=== PATIENT | female | born 1945 | race Caucasian/White ===

== ENCOUNTER 2016-09-22 12:13 | Emergency (ER) | payer MEDICARE, OTHER ==
[2016-09-22 13:15] LABS: Hematocrit 25 % (35-47); Hemoglobin 7.8 g/dl (12.0-16.0); Mean Corpuscular HGB Conc 31 g/dl (31-36); Mean Corpuscular Hemoglobin 30 pg (27-31); Mean Corpuscular Volume 95 fL (80-97); Mean Platelet Volume 9 um3 (7.4-10.4); Red Blood Count 2.65 10^6/ul (4.0-5.4); Red Cell Distribution Width 16 % (10.5-15); White Blood Count 12.7 10^3/ul (3.5-10.8)
--- NOTE | 2016-09-22 13:20 | RAD ---
INDICATION: Shortness of breath. COMPARISON: Comparison is made with a prior study from August 07, 2016. TECHNIQUE: A portable view of the chest was obtained. FINDINGS: The patient is status poststernotomy. There is interval increase in size of the cardiac silhouette. The lungs are underinflated. There is mild prominence of the interstitial markings. There is a focal infiltrate at the left lung base and a small left pleural effusion which are new. There are multiple old right posterior lateral rib fractures. IMPRESSION: 1. INTERVAL INCREASE IN SIZE OF THE CARDIAC SILHOUETTE. 2. LEFT LOWER LOBE INFILTRATE AND SMALL LEFT PLEURAL EFFUSION.
[2016-09-22 13:42] LABS: Albumin 3.4 g/dL (3.2-5.2); BUN/Creatinine Ratio 26.9 (8-20); Calcium 8.5 mg/dL (8.6-10.3); EGFR Non-African American 35.8 (>60); Globulin 2.5 g/dL (2-4); Potassium 5.6 mmol/L (3.5-5.0); Total Bilirubin 0.6 mg/dL (0.2-1.0); Total Protein 5.9 g/dL (6.4-8.9)
[2016-09-22 13:49] LABS: Troponin I 0.84 ng/mL (<0.04)
[2016-09-22] MEDS ORDERED: Perflutren Prot Type A Micr (NF) 3 ML SDV IV ONE (13:54)
--- NOTE | 2016-09-22 14:55 | ECHO ---
Patient: MARICARMEN VARGAS [facility] Rec#: [id number] : 1945 Date: 09/22/2016 Age: 70y Height: 167.64 cm / 66.0 in Weight: 82.55 kg / 181.9 lbs Sex: F BSA: 1.92 Room#: 10 Admit Date#: 09/22/2016 Type: Inpatient Referring: Lorenzo Marin MD Reading: Buster Moser MD Kier Pleater: Wendie Dominguez,AVA,RDMS CC: Boo Batres MD Transthoracic Echocardiogram Indication: Shortness of Breath BP: 121/59 HR: 111 Rhythm: A-Fib Indications Shortness of Breath Findings History: S/P MV replacement and CABG, HTN, HLD, smoker, MV disorder. Technical Comments: The study is technically difficult. The study is technically limited due to poor acoustic windows. Left Ventricle: The left ventricular chamber size is normal. Moderate concentric left ventricular hypertrophy is observed. The left ventricle appears hyperdynamic. The estimated ejection fraction is greater than 65%. The assessment of diastolic function is non-diagnostic. Left Atrium: The left atrium is mildly dilated. Right Ventricle: The right ventricular chamber size and systolic function are within normal limits. Right Atrium: The right atrial cavity size is normal. Aortic Valve: The aortic valve is trileaflet. The aortic valve leaflets are mildly thickened. There is mild aortic regurgitation. There is no evidence of aortic stenosis. Mitral Valve: There is no evidence of mitral regurgitation. The bioprosthetic mitral valve appears to be functioning normally. Tricuspid Valve: The tricuspid valve leaflets are not thickened. There is trace tricuspid regurgitation. Unable to estimate the right ventricular systolic pressure. Pulmonic Valve: The pulmonic valve structure is not well visualized. Pericardium: There is no pericardial effusion. Aorta: The aortic root appears normal. There is no dilatation of the aortic arch. Pulmonary Artery: The main pulmonary artery is not well visualized. Venous: The inferior vena cava is not visualized. Contrast: Optison was used to optimize study. A total of 2.5 ml were used. Conclusions Moderate concentric left ventricular hypertrophy is observed. The left ventricle appears hyperdynamic. The estimated ejection fraction is greater than 65%. The assessment of diastolic function is non-diagnostic. The left atrium is mildly dilated. The aortic valve leaflets are mildly thickened. There is mild aortic regurgitation. Increased velocity in LV outflow tract could be due to hyperdynamic LV function or outflow obstruction The bioprosthetic mitral valve appears to be functioning normally. There is no evidence of mitral regurgitation. There is trace tricuspid regurgitation. Unable to estimate the right ventricular systolic pressure. There is no pericardial effusion Compared to study of 08/08/16, the LV function is the same. The mitral valve has been replaced Measurements Name Value Normal Range RVIDd (AP) 2D 2.3 cm (0.9 - 2.6) RAd ISD 4CH 4.6 cm (3.4 - 4.9) RA (A4C)W 3.5 cm (2.9 - 4.6) IVSd (2D) 1.4 cm (0.6 - 1) LVPWd (2D) 1.5 cm (0.6 - 1) LVIDd (2D) 4.3 cm (3.6 - 5.4) LVIDs (2D) 3.4 cm - LV FS (2D) 21 % (25 - 45) Aortic Annulus 1.7 cm (1.4 - 2.6) Ao root diameter (2D) 2.5 cm (2.1 - 3.5) Ascending Ao 3.1 cm (2.1 - 3.4) Aortic arch 2.2 cm (1.8 - 3.4) LA dimension (AP) 2D 5.6 cm (2.3 - 3.8) Name Value Normal Range LA ESV SP 4CH (A/L) 56.63 ml - LA ESV SP 2CH (A/L) 76.11 ml - LA ESV BP (A/L) 67.66 ml - LA ESV BP (A/L) index 35 ml/m2 - LA ESV SP 4CH (MOD) 53.54 ml - LA ESV SP 2CH (MOD) 70.68 ml - Name Value Normal Range MV E-wave Vmax 1.4 m/sec - MV deceleration time 246 msec - LV lateral e' Vmax 0.06 m/sec - LV E:e' lateral ratio 25 ratio - Name Value Normal Range AV Vmax 2 m/sec - AV peak gradient 16 mmHg - LVOT diameter 1.9 cm - Name Value Normal Range MV Vmax 1.7 m/sec - MV VTI 33.4 cm - MV peak gradient 11.2 mmHg - MV mean gradient 4.6 mmHg - MV PHT 71 msec - MVA (PHT) 3.1 cm2 - Name Value Normal Range RAP 8 mmHg - Name Value Normal Range PV Vmax 0.8 m/sec - PV peak gradient 2.9 mmHg -
[2016-09-22] MEDS ORDERED: oxyCODONE/Acetamin 5/325 MG* TAB PO ONE ×2 (16:01→16:24)
--- NOTE | 2016-09-22 16:35 | ED ---
Russel Wilkins Adam, scribed for Lorenzo Marin MD on 09/22/16 at 1230 . Shortness of Breath - HPI Summary HPI Summary: Pt is a 70 year old female presenting with SOB. She states that she has been having difficulty breathing since her valve replacement operation 6 days ago. A pig valve was used for the replacement. The symptoms that preceded the operation were primarily dizziness and feelings of near-syncope. The pt also had catheterization and bypass x2; she has donor sites in her lower extremities. Pt was discharged home yesterday and has been having difficulty breathing. She states that she did not sleep well last night because she was unable to lie flat. She denies any CP. PMHx of HLD. Pt is on warfarin. She states that she quit smoking 1 week ago. No hx of COPD, not on home o2. - History of Current Complaint Time Seen by Provider: 09/22/16 12:21 Hx Obtained From: Patient Onset/Duration: Gradual Onset, Lasting Days, Still Present Timing: Constant Current Severity: Moderate Dyspnea At: Rest Alleviating Factors: Oxygen - Allergy/Home Medications Allergies/Adverse Reactions: Allergies Allergy/AdvReac Type Severity Reaction Status Date / Time No Known Allergies Allergy Verified 08/15/16 09:25 PMH/Surg Hx/FS Hx/Imm Hx Endocrine/Hematology History: Reports: Hx Anemia Denies: Hx Diabetes Cardiovascular History: Reports: Hx Hypercholesterolemia, Hx Hypertension, Hx Syncope, Other Cardiovascular Problems/Disorders - BORN WITH HEART MURMUR, ON MEDS Denies: Hx Pacemaker/ICD Respiratory History: Reports: Hx Seasonal Allergies Denies: Hx Asthma, Hx Chronic Obstructive Pulmonary Disease (COPD), Other Respiratory Problems/Disorders History: Denies: Hx Renal Disease Musculoskeletal History: Reports: Hx Fibromyalgia, Hx Osteoporosis - L HIP;SPINE Sensory History: Reports: Hx Contacts or Glasses - GLASSES, Other Sensory Impairments - fibromyalgia Denies: Hx Hearing Aid Opthamlomology History: Reports: Hx Contacts or Glasses - GLASSES, Other Sensory Impairments - fibromyalgia Neurological History: Reports: Hx Headaches Psychiatric History: Reports: Hx Anxiety - NO MEDICATION FOR AT THIS TIME- STATES HAS BEEN NERVOUS LATELY, Hx Depression - NO MEDICATION FOR AT THIS TIME Denies: Hx Panic Disorder - Cancer History Hx Chemotherapy: No Hx Radiation Therapy: No - Surgical History Surgery Procedure, Year, and Place: right wrist-plate; gastric stapling; tubal ligation,. hysterectomy-CMC; appendectomy;carpal tunnel right and left,LAP RISA. RIGHT THUMB TENDON REPAIR, - Immunization History Date of Tetanus Vaccine: Yes Date of Influenza Vaccine: Fall 2012 - Family History Known Family History: Positive: Hypertension - Social History Occupation: Disabled Lives: With Family - Alcohol Use: None Hx Substance Use: Yes Substance Use Type: Reports: Prescribed Substance Use Comment - Amount & Last Used: hydrocodone Hx Tobacco Use: Yes Smoking Status (MU): Former Smoker - Quit in August, Type: Cigarettes Amount Used/How Often: 1/2 PPD Have You Smoked in the Last Year: Yes Review of Systems Negative: Chest Pain Positive: Shortness Of Breath All Other Systems Reviewed And Are Negative: Yes Physical Exam - Summary Physical Exam Summary: The patient is in moderate respiratory distress. The skin is pale. Not diaphoretic. Decreased skin turgor. Ecchymosis in both lower extremities. HEENT: The head is normocephalic and atraumatic. The pupils are equal and reactive. The conjunctivae are clear and without drainage. Nares are patent and without drainage. Mouth reveals dry mucous membranes and the throat is without erythema and exudate. The external ears are intact. Neck is supple with full range of motion and non-tender. There are no carotid bruits. There is no neck vein distension. No tracheal deviation. Respiratory: Moderate respiratory distress. Hypoxic. Decreased breath sound on the left. Cardiovascular: Heart irregular but controlled. Abdomen: The abdomen is soft and non-tender. There are normal bowel sounds heard in all four quadrants and there is no organomegaly palpated. Musculoskeletal: Edema and tenderness in RLE where there is a donor site. Neurological: Patient is alert and oriented to person, place and time. The patient has symmetrical motor strength in all four extremities. Cranial nerves are grossly intact. Deep tendon reflexes are symmetrical and equal in all four extremities. Psychiatric: The patient has an appropriate affect and does not exhibit any anxiety or depression. Triage Information Reviewed: Yes Vital Signs On Initial Exam: Initial Vitals Pulse Pulse Ox 103 86 09/22/16 12:24 09/22/16 12:24 Vital Signs Reviewed: Yes Diagnostics - Vital Signs Vital Signs Temp Pulse Resp BP Pulse Ox 09/22/16 16:00 89 26 99/63 100 09/22/16 15:30 78 13 138/72 100 09/22/16 15:00 76 13 98/73 100 09/22/16 14:30 65 12 144/86 100 09/22/16 14:01 67 16 104/65 99 09/22/16 14:00 55 22 99 09/22/16 13:54 76 13 100 09/22/16 13:30 39 21 88/56 98 09/22/16 13:00 108 18 130/89 98 09/22/16 12:48 121/59 09/22/16 12:47 105 19 121/59 100 09/22/16 12:37 98.8 F 77 28 160/125 98 09/22/16 12:36 160/125 09/22/16 12:25 150/100 09/22/16 12:24 103 86 - Laboratory Lab Results: Lab Results 09/22/16 09/22/16 09/22/16 Range/Units 13:02 13:02 13:02 WBC 12.7 H (3.5-10.8) 10^3/ul RBC 2.65 L (4.0-5.4) 10^6/ul Hgb 7.8 L (12.0-16.0) g/dl Hct 25 L (35-47) % MCV 95 (80-97) fL MCH 30 (27-31) pg MCHC 31 (31-36) g/dl RDW 16 H (10.5-15) % Plt Count 154 (150-450) 10^3/ul MPV 9 (7.4-10.4) um3 Neut % (Auto) 72.8 (38-83) % Lymph % (Auto) 16.9 L (25-47) % [place] % (Auto) 9.9 H (1-9) % Eos % (Auto) 0.2 (0-6) % Baso % (Auto) 0.2 (0-2) % Absolute Neuts (auto) 9.2 H (1.5-7.7) 10^3/ul Absolute Lymphs (auto) 2.1 (1.0-4.8) 10^3/ul Absolute Monos (auto) 1.3 H (0-0.8) 10^3/ul Absolute Eos (auto) 0 (0-0.6) 10^3/ul Absolute Basos (auto) 0 (0-0.2) 10^3/ul Absolute Nucleated RBC 0.02 10^3/ul Nucleated RBC % 0.1 INR (Anticoag Therapy) (0.89-1.11) APTT (26.0-36.3) seconds Sodium 139 (133-145) mmol/L Potassium 5.6 H (3.5-5.0) mmol/L Chloride 110 (101-111) mmol/L Carbon Dioxide 22 (22-32) mmol/L Anion Gap 7 (2-11) mmol/L BUN 39 H (6-24) mg/dL Creatinine 1.45 H (0.51-0.95) mg/dL Est GFR ( Amer) 46.0 (>60) Est GFR (Non-Af Amer) 35.8 (>60) BUN/Creatinine Ratio 26.9 H (8-20) Glucose 106 H (70-100) mg/dL Lactic Acid 1.8 (0.5-2.0) mmol/L Calcium 8.5 L (8.6-10.3) mg/dL Total Bilirubin 0.60 (0.2-1.0) mg/dL AST 24 (13-39) U/L ALT 22 (7-52) U/L Alkaline Phosphatase 112 H (34-104) U/L Troponin I 0.84 H* (<0.04) ng/mL B-Natriuretic Peptide ( - 100) pg/mL Total Protein 5.9 L (6.4-8.9) g/dL Albumin 3.4 (3.2-5.2) g/dL Globulin 2.5 (2-4) g/dL Albumin/Globulin Ratio 1.4 (1-3) 09/22/16 09/22/16 Range/Units 13:02 13:02 WBC (3.5-10.8) 10^3/ul RBC (4.0-5.4) 10^6/ul Hgb (12.0-16.0) g/dl Hct (35-47) % MCV (80-97) fL MCH (27-31) pg MCHC (31-36) g/dl RDW (10.5-15) % Plt Count (150-450) 10^3/ul MPV (7.4-10.4) um3 Neut % (Auto) (38-83) % Lymph % (Auto) (25-47) % [place] % (Auto) (1-9) % Eos % (Auto) (0-6) % Baso % (Auto) (0-2) % Absolute Neuts (auto) (1.5-7.7) 10^3/ul Absolute Lymphs (auto) (1.0-4.8) 10^3/ul Absolute Monos (auto) (0-0.8) 10^3/ul Absolute Eos (auto) (0-0.6) 10^3/ul Absolute Basos (auto) (0-0.2) 10^3/ul Absolute Nucleated RBC 10^3/ul Nucleated RBC % INR (Anticoag Therapy) 1.78 H (0.89-1.11) APTT 35.0 (26.0-36.3) seconds Sodium (133-145) mmol/L Potassium (3.5-5.0) mmol/L Chloride (101-111) mmol/L Carbon Dioxide (22-32) mmol/L Anion Gap (2-11) mmol/L BUN (6-24) mg/dL Creatinine (0.51-0.95) mg/dL Est GFR ( Amer) (>60) Est GFR (Non-Af Amer) (>60) BUN/Creatinine Ratio (8-20) Glucose (70-100) mg/dL Lactic Acid (0.5-2.0) mmol/L Calcium (8.6-10.3) mg/dL Total Bilirubin (0.2-1.0) mg/dL AST (13-39) U/L ALT (7-52) U/L Alkaline Phosphatase (34-104) U/L Troponin I (<0.04) ng/mL B-Natriuretic Peptide 1128 H ( - 100) pg/mL Total Protein (6.4-8.9) g/dL Albumin (3.2-5.2) g/dL Globulin (2-4) g/dL Albumin/Globulin Ratio (1-3) Result Diagrams: 09/22/16 13:02 09/22/16 13:02 Lab Statement: Any lab studies that have been ordered have been reviewed, and results considered in the medical decision making process. - Radiology CXR Radiology Interpretation Completed By: Radiologist - IMPRESSION: 1. INTERVAL INCREASE IN SIZE OF THE CARDIAC SILHOUETTE. 2. LEFT LOWER LOBE INFILTRATE AND SMALL LEFT PLEURAL EFFUSION. - EKG 12:25 Cardiac Rate: NL - 96 BPM EKG Rhythm: Atrial Flutter - Additional Comments Diagnostic Additional Comments: Troponin I - 0.84 Transthoracic Echocardiogram - There is no pericardial effusion Compared to study of 08/08/16, the LV function is the same. The mitral valve has been replaced Re-Evaluation - Re-Evaluation First Eval Re-Evaluation Time: 16:27 - Discussed the plan to transfer the patient to [facility]. She agrees to be transferred. Course/Dx - Course Course Of Treatment: Patient improved with o2 (sats increased from 86 to 95). Assessment/Plan: 16:15 - Patient is accepted for transfer by Dr. Brewer at [facility]. - Diagnoses Differential Diagnosis/HQI/PQRI: Positive: CHF, NV, Pneumonia, Pulmonary Edema, Other - pericardial effusion Provider Diagnoses: Hypoxia, Left pleural effusion, Anemia, Atrial flutter, No pericardial effusion , Status post mitral valve replacement, Status post coronary artery bypass graft - Physician Notifications Discussed Care of Patient With: [facility] at [facility] at 15:50. They will talk to Dr. Brewer and call back. Reason For Transfer: Specialty or service not available at [facility]. Discharge - Discharge Plan Condition: Stable Disposition: [facility] CARE FAC Referrals: Boo Batres MD [Primary Care Provider] - The documentation as recorded by the Russel serna Adam accurately reflects the service I personally performed and the decisions made by , Lorenzo Marin MD.
[2016-09-22 17:24] VITALS: BP 144/88
== END 2016-09-22 17:24 | disposition short-term general hospital (02) ==
LOC: ED 12:13
DX: R09.02 Hypoxemia (principal); J90 Pleural effusion, not elsewhere classified; D64.9 Anemia, unspecified; I48.92 Unspecified atrial flutter; R42 Dizziness and giddiness; R06.02 Shortness of breath; R55 Syncope and collapse; Z95.2 Presence of prosthetic heart valve; Z95.1 Presence of aortocoronary bypass graft
CPT/HCPCS: 36415; 71010; 80053; 83605; 83880; 84484; 85025; 85610; 85730; 93005; 93306; 99284; A9270-GY; C8929; Q9956

== ENCOUNTER 2017-01-23 09:04 | Emergency (ER) | payer MEDICARE, OTHER ==
[2017-01-23 09:51] VITALS: BP 174/66
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
== END 2017-01-23 11:25 | disposition home or self-care (01) ==
LOC: ED 09:04
DX: S23.3XXA Sprain of ligaments of thoracic spine, initial encounter (principal); V49.9XXA Car occupant (driver) (passenger) injured in unspecified traffic accident, initial encounter; Y93.89 Activity, other specified; Y92.89 Other specified places as the place of occurrence of the external cause; Y99.8 Other external cause status; F17.210 Nicotine dependence, cigarettes, uncomplicated
CPT/HCPCS: 72128; 99282

== ENCOUNTER 2017-08-15 11:07 | Emergency (ER) | payer MEDICARE, OTHER ==
[2017-08-15] MEDS ORDERED: HYDROcodone/ACETAMIN 5-325 MG* 1 TAB PO ONE (12:20)
[2017-08-15] MEDS ORDERED: Ibuprofen TAB* 600 MG PO ONE (13:45)
[2017-08-15 14:22] VITALS: BP 165/71
--- NOTE | 2017-08-15 14:26 | ED ---
Complex/Multi-Sys Presentation - HPI Summary HPI Summary: 71 female presents to ED with complaints of right rib/back pain that began yesterday, 08/14/17, after [place] due to her daughter's dog making her trip over. Admits to bruising. States she had ribs broken a few years ago on the same side and it feels similar. Pain with deep breaths. Has taken pain medication with little relief. Already prescribed pain medication. States coughing and laughing also makes pain worse. No other complaints. No other symptoms. Denies abdominal pain. No hematuria. Did not fall and did not hit head. No SOB or chest pain. Not on blood thinners. - History Of Current Complaint Chief Complaint: EDChestWallPain Time Seen by Provider: 08/15/17 11:46 Hx Obtained From: Patient Onset/Duration: Sudden Onset Timing: Constant Severity Currently: Mild Severity Initially: Moderate Location: Pain At: - right ribs/back where she hit on [place] Character: Sharp Aggravating Factor(s): deep breaths, touch, laughing, coughing Alleviating Factor(s): rest, applying pressure/band Associated Signs And Symptoms: Positive: Recent Trauma - Allergies/Home Medications Allergies/Adverse Reactions: Allergies Allergy/AdvReac Type Severity Reaction Status Date / Time No Known Allergies Allergy Verified 07/13/17 11:41 PMH/Surg Hx/FS Hx/Imm Hx Endocrine/Hematology History: Reports: Hx Anemia Denies: Hx Diabetes Cardiovascular History: Reports: Hx Hypercholesterolemia, Hx Hypertension, Hx Syncope, Other Cardiovascular Problems/Disorders - BORN WITH HEART MURMUR, ON MEDS Denies: Hx Pacemaker/ICD Respiratory History: Reports: Hx Seasonal Allergies Denies: Hx Asthma, Hx Chronic Obstructive Pulmonary Disease (COPD), Other Respiratory Problems/Disorders History: Denies: Hx Renal Disease Musculoskeletal History: Reports: Hx Fibromyalgia, Hx Osteoporosis - L HIP;SPINE Sensory History: Reports: Hx Contacts or Glasses - GLASSES, Other Sensory Impairments - fibromyalgia Denies: Hx Hearing Aid Opthamlomology History: Reports: Hx Contacts or Glasses - GLASSES, Other Sensory Impairments - fibromyalgia Neurological History: Reports: Hx Headaches Psychiatric History: Reports: Hx Anxiety - NO MEDICATION FOR AT THIS TIME- STATES HAS BEEN NERVOUS LATELY, Hx Depression - NO MEDICATION FOR AT THIS TIME Denies: Hx Panic Disorder - Cancer History Hx Chemotherapy: No Hx Radiation Therapy: No - Surgical History Surgery Procedure, Year, and Place: right wrist-plate; gastric stapling; tubal ligation,. hysterectomy-[facility]; appendectomy;carpal tunnel right and left,LAP RISA. RIGHT THUMB TENDON REPAIR, - Immunization History Date of Tetanus Vaccine: Yes Date of Influenza Vaccine: Fall 2012 Immunizations Up to Date: Yes Infectious Disease History: No Infectious Disease History: Denies: Traveled Outside the [place] in Last 30 Days - Family History Known Family History: Positive: Hypertension - Social History Alcohol Use: None Hx Substance Use: Yes Substance Use Type: Reports: None Substance Use Comment - Amount & Last Used: hydrocodone Hx Tobacco Use: Yes Smoking Status (MU): Current Every Day Smoker Type: Cigarettes Amount Used/How Often: 10 cigarettes/day Have You Smoked in the Last Year: Yes Review of Systems Constitutional: Negative Cardiovascular: Other - chest wall/ rib pain Respiratory: Negative Positive: Arthralgia - right rib/back pain Positive: Bruising All Other Systems Reviewed And Are Negative: Yes Physical Exam Triage Information Reviewed: Yes Vital Signs On Initial Exam: Initial Vitals Temp Pulse Resp BP Pulse Ox 97.8 F 64 21 126/80 99 08/15/17 11:14 08/15/17 11:14 08/15/17 11:14 08/15/17 11:14 08/15/17 11:14 Vital Signs Reviewed: Yes Appearance: Positive: Well-Appearing, Well-Nourished, Pain Distress - mild to moderate with palpation Skin: Positive: Warm, Skin Color Reflects Adequate Perfusion, Dry. Negative: Cold, Numb, Cyanosis @, Pale, Erythema @ Head/Face: Positive: Normal Head/Face Inspection Neck: Positive: Supple, Nontender Respiratory/Lung Sounds: Positive: Clear to Auscultation, Breath Sounds Present , Wheezes - diffuse, patient is smoker. Negative: Decreased Breath Sounds, Rales, Rhonchi, Unable to speak in full sentences Cardiovascular: Positive: Normal, RRR, Pulses are Symmetrical in both Upper and Lower Extremities. Negative: Murmur, Rub Abdomen Description: Positive: Nontender, Soft. Negative: No Organomegaly, CVA Tenderness (R), CVA Tenderness (L), Distended, Guarding Bowel Sounds: Positive: Present Musculoskeletal: Positive: Normal, Strength/ROM Intact, Pain @ - with palpation of right ribs at 7-11 posteriorly with ecchymosis noted, Other - no crepitus or step off, no other signs of trauma or deformity. Negative: Limited @, Interruption @, Abnormal @, Edema Left, Edema Right Neurological: Positive: Normal, Sensory/Motor Intact, Alert, Oriented to Person Place, Time, NV Bundle Intact Distally, Normal Gait Diagnostics - Vital Signs Vital Signs Temp Pulse Resp BP Pulse Ox 08/15/17 14:19 99.3 F 61 18 165/71 97 08/15/17 11:14 97.8 F 64 21 126/80 99 - Laboratory Lab Statement: Any lab studies that have been ordered have been reviewed, and results considered in the medical decision making process. - Radiology ribs and chest Xray Interpretation: No Acute Changes - Multiple deformities of the right ribs consistent with multilevel rib fractures. No pneumothorax is noted. No definite recent rib fracture is noted. Radiology Interpretation Completed By: Radiologist Re-Evaluation - Re-Evaluation First Eval Re-Evaluation Time: 14:00 Change: Improved - feeling better after pain meds, would like to d/c home Complex Multi-Symp Course/Dx Course Of Treatment: xray obtained and did not show acute fracture, does show patient's old fractures as she stated. given norco and ibuprofen. had relief. eleanor wrap over rib cage as patient stated it helped. continue at home. rest, ice. follow up. no other concerning symptoms. normal vitals. normal PE otherwise. aware of worsening signs and symptoms to watch out for. - Diagnoses Differential Diagnoses/HQI/PQRI: Other - rib contusion, rib fracture Provider Diagnoses: Contusion of rib on right side Discharge - Discharge Plan Condition: Stable Disposition: HOME Patient Education Materials: Rib Contusion (ED) Referrals: Boo Batres MD [Primary Care Provider] - Additional Instructions: Continue pain medication DIRECTED and supplement with ibuprofen. Ice area. Rest. Any new or worsening symptoms please seek medical attention, such as difficulty breathing. Follow up with PCP to ensure improvement.
--- NOTE | 2017-08-15 15:00 | RAD ---
Indication: Fall, right rib injury. 3 views of the right ribs are reviewed. There are old fractures of the right second third fourth and fifth ribs posteriorly. Additional fracture is noted in the right lateral fifth rib 6 rib seventh rib eighth ribs. These all appear to BE well-corticated with no evidence of recent fracture. Dual energy PA views demonstrates no pneumothorax. Findings are not significantly changed since November 10, 2016. IMPRESSION: Multiple deformities of the right ribs consistent with multilevel rib fractures. No pneumothorax is noted. No definite recent rib fracture is noted.
== END 2017-08-15 14:19 | disposition home or self-care (01) ==
LOC: ED 11:07
DX: S20.211A Contusion of right front wall of thorax, initial encounter (principal); W01.0XXA Fall on same level from slipping, tripping and stumbling without subsequent striking against object, initial encounter; Y92.9 Unspecified place or not applicable; M54.9 Dorsalgia, unspecified; D64.9 Anemia, unspecified; I10 Essential (primary) hypertension; E78.00 Pure hypercholesterolemia, unspecified; Z79.899 Other long term (current) drug therapy; F17.210 Nicotine dependence, cigarettes, uncomplicated
CPT/HCPCS: 99282; A9270-GY

== ENCOUNTER 2017-11-07 16:29 | Inpatient (IN) | payer MEDICARE, OTHER ==
[2017-11-07] MEDS ORDERED: Diltiazem IV* 5 MG/ML 5 ML VIAL (for loading dose/IV Push) (25 MG) IV SLOW PU ONE (17:06)
[2017-11-07] MEDS ORDERED: Diltiazem DRIP* 100 MG/100 ML ADDV.BAG IVPB ONE ×2 (17:06→18:05)
--- OUTSIDE RECORDS SUMMARY | 2017-11-07 17:33 | XMS REPORT ---
:1945 External Reference #:[id number] Author Organization [employer] Address [address] [address] Phone [phone] Care Team Providers Name Role Phone Boo Batres III, MD Primary Care Physician Unavailable Payers Type Date Identification Numbers Payment Provider Subscriber Commercial Effective: Policy Number: Hong Stack/Irina Maricarmen Thomas 2017 [id number] Torri Villarreal PayID: [id number] [address] [address] Attn: [place] [address] Medigap Part B Policy Number: [id number] [facility] Maricarmen Villarreal PayID: [id number] [address] [place] [address] Medigap Part B Expires: 2016 Policy Number: Medicare Maricarmen Thomas [id number] Cherelle PayID: [id number] [address] [place] [address] Workers Onset: Policy Number: State Insurance Maricarmen E Compensation 1985 [id number] Erasmo Villarreal Group Number: [id number] [address] [address] Group Name: 5% [place] [address] [place]ID: [email or web address] Workers Onset: Policy Number: State Insurance Maricarmen E Compensation 1985 [id number] Erasmo Villarreal Group Number: [id number] [address] [address] Group Name: 10% [place] [address] [place]ID: [email or web address] Workers Onset: Policy Number: State Insurance Maricarmen E Compensation 1985 [id number] Erasmo Villarreal Group Number: [id number] [address] [address] Group Name: 25% [place] [address] PayID: [email or web address] Workers Onset: Policy Number: State Insurance Maricarmen Thomas Compensation 1985 [id number] Erasmo Villarreal Group Number: [id number] [address] [address] Group Name: [address] [id number] PayID: [email or web address] Problems Date Description Provider Status Onset: 03/27/2011 Osteoporosis Boo Batres M.D. Active Onset: 03/27/2011 Osteoarthritis Boo Batres M.D. Active Onset: 03/27/2011 Generalized anxiety disorder Boo Batres M.D. Active Onset: 03/27/2011 Palpitations Boo Batres M.D. Active Onset: 11/13/2011 Pure hypercholesterolemia Boo Batres M.D. Active Onset: 11/19/2011 Dizziness and giddiness Angelika Tanner M.D. Onset: 11/19/2011 Vertiginous syndrome Angelika Tanner M.D. Onset: 01/09/2014 Elevated blood-pressure reading Angelika Tanner without diagnosis of hypertension Marissa Onset: 01/09/2014 Orthostatic hypotension Angelika Tanner M.D. Onset: 03/19/2015 Cervical disc disorder Jad Holden M.D. Active Onset: 06/30/2016 Low back pain Jad Holden M.D. Active Onset: 06/30/2016 Cervical spondylosis without Jad Holden M.D. Active myelopathy Onset: 03/23/2017 Fibromyalgia ELIJAH Mora Active Onset: 11/19/2011 Chest pain Rosie Tanner M.D. Resolved: 12/17/2016 Family History Date Family Member(s) Problem(s) Comments General Heart Disease General Diabetes General Cancer : (age 50 Years) First Sister due to Cancer bone cancer Social History Type Date Description Comments Marital Status 2017 Cigarette Use current cigarette smoker ETOH Use Denies alcohol use Smoking Light tobacco smoker (10 or 1 ppd max for over 40 fewer cigarettes/day) years; began age 17 down to 6 cigarettes Daily Caffeine Consumes on average 3 cups of 1/2 decaff regular coffee per day Exercise Type/Frequency Does not exercise General Hx Text , lives at home w/ , who is also disabled, 6 children -- grown, 3 in area, son of brain tumor, no etoh, no drugs. uses wheelchair. Allergies, Adverse Reactions, Alerts Date Description Reaction Status Severity Comments 08/07/2009 NKDA active Medications Medication Date Status Form Strength Qnty SIG Indications Ordering Provider Amitriptyline 10/28/ Active Tablets 50mg 90tabs take 1 Boo Lennon HCL 2018 tablet by Gisel, mouth tid M.D. Iron Supplement 03/03/ Active Tablets 325mg 90tabs one by Caleb Kc mouth Carlene Portillo, daily M.D. Metoprolol 10/21/ Active Tablets 25mg 90tabs /2 by Caleb Tartrate 2017 mouth Carlene Portillo, twice a M.D. day Voltaren 07/16/ Active Gel 1% 300gm apply 2-3 M65.871 Dirk 2017 times Gallo, daily to M.D. affected ankle Cartia XT 04/10/ Active Caps ER 120mg 180cap 1 by mouth I10 Caleb 2015 24HR s in the Jaziel. Mavonda, morning M.D. and 1 at night Omeprazole 06/25/ Active Capsules 20mg 90caps take one Boo Lennon 2015 DR capsule by Gisel, mouth once M.D. daily Prolia 02/27/ Active Solution 60mg/ml 60mg 60 mg sc M81.0 Boo Lennon 2013 q6mon Marissa Batres Z92.29 Fluticasone 11/16/2012 Active Suspension 50mcg/Act 16units use one Munir Propionate spray in [facility], each M.D.,FACP nostril every day Pravastatin 11/13/2011 Active Tablets 40mg 90tabs take 1 Caleb Sodium tablet by Carlene Portillo, mouth at M.D. bedtime Centrum Silver 12/07/2008 Active Tablets 1 po qd Radha López M.D. Fish Oil 12/07/2008 Active Capsules 1000mg 1 po qd Radha López M.D. Lidoderm Active Patches 5% 30units topical 10 Unknown hours prn Aspir-[address] 81mg 3 by mouth Unknown as needed Baclofen Active Tablets 10mg 60tabs 2 tab by Boo Lennon mouth daily Marissa Batres Laxative Active Tablets 25mg 1 tab by Unknown mouth as needed Alprazolam Active Tablets 0.25mg one by Unknown mouth up to three times daily as needed for anxiety Ventolin HFA Active Aerosol 108(90Base 2 puffs by Unknown ) mcg/Act mouth four times a day as needed (not using ) Hydrocodone-Acet Active Tablets 10-325mg 1 po q 4 Unknown aminophen hrs (mmd 5) Calcium Active Tablets 600mg 1 po bid Unknown Advair Diskus Active Aerosol 100-50mcg/ 1 Unknown Dose inhalation twice daily [facility] Slow Release Active Tablets ER 143(45Fe) 1 po qd Unknown Iron mg Vit C Active Chewtabs 125mg take one Unknown capsule bid Zinc Active Capsules 1 by mouth Unknown bid Magnesium Active 2 po qd Unknown Sulfate Eliquis Active Tablets 5mg 1 by mouth Unknown twice a day Demadex 03/03/2017 Hx Tablets 10mg 14tabs 1 tablet Caleb - daily as FLadarius Portillo, 08/22/2017 needed for M.D. weight gain > 3 lbs Iron (Ferrous 10/17/2016 Hx Tablets 256(28Fe) Caleb Gluconate) - mg F. Mauser, 10/17/2016 M.D. Iron 10/17/2016 Hx Tablets 325mg 30tabs 1 tab by Caleb High-Potency - mouth every F. Mauser, 02/09/2017 day M.DLadarius Lisinopril 10/14/2016 Hx Tablets 5mg 90tabs 1 by mouth Caleb - every day F. Lindsey, 11/07/2016 hold as of M.Bib 4.25.17 Augmentin 10/02/2015 Hx Tablets 500-125mg 20tabs 1 by mouth Boo Lennon - twice a day Gisel 03/05/2016 Marissa Metoprolol 07/30/2015 Hx Tablets ER 25mg 45tabs 1/2 tab Caleb Succinate ER - 24HR daily Carlene Portillo, 10/21/2016 (patient M.D. brought in a Metoprolol Tar bottle) Prolia 08/25/2013 Hx Solution 60mg/ml 60mg 60 mg sc Boo E. - q6mon Gisel, 01/09/2014 M.D. Metoprolol 07/29/2013 Hx Tablets 25mg 90tabs 1/2 tab by Caleb Tartrate - mouth twice Carlene Portillo, 07/30/2015 a day M.D. Alendronate 03/04/2013 Hx Tablets 70mg 12tabs take one Boo E. Sodium - tablet by Gisel, 01/26/2015 mouth once M.D. a week Metoprolol 11/19/2011 Hx Tablets 25mg 90tabs Stopped Caleb Tartrate - taking 1 F. Lindsey, 08/01/2013 month ago. M.D. 1/2 po bid Septra DS 08/08/2011 Hx Tablets 800-160mg 20tabs one po bid Boo ELadarius - for ten Gisel, 08/18/2011 days M.D. Metoprolol 06/05/2011 Hx Tablets 25mg 300tabs 2 po qam Caleb Tartrate - and 1 po Jaziel. Lindsey, 11/19/2011 qpm M.D. Furosemide 03/27/2011 Hx Tablets 20mg 1 po qam Boo ELadarius - rey Batres, 05/21/2012 M.D. Chantix 09/27/2010 Hx Tablets 0.5mg X 11 use as Boo E. - & 1 mg directed Gisel, 09/27/2010 X M.D. Chantix 09/27/2010 Hx Tablets 1mg 60tabs 1 po bid Boo Batres, 03/27/2011 M.D. Chantix Starting 08/13/2010 Hx Tablets 0.5mg X 11 1tabs use as Boo E. Yessica Box - & 1 mg directed Gisel, 09/27/2010 X M.DLadarius Lopressor 04/18/2010 Hx Tablets 25mg 270tabs 1 po tid Caleb - F. Milanr, 06/05/2011 M.D. Amoxicillin 03/19/2010 Hx Tablets 500mg 30tabs 1 po tid 4 Boo Lennon - for 10 days 6 Gisel, 04/25/2010 5 M.D. . 9 Lopressor 03/15/2010 Hx Tablets 25mg 180tabs 1 po tid Boo Batres, 04/18/2010 M.D. Lopressor 03/05/2010 Hx Tablets 50mg 1/2 po tid Caleb Carlene Portillo, 03/15/2010 M.D. Lopressor 02/13/2010 Hx Tablets 50mg 90tabs 1/2 po at [facility] Carlene Portillo, 03/05/2010 M.D. Septra DS 02/06/2010 Hx Tablets 800-160mg 6tabs 1 po bid Boo Rodriguez for 3 days Gisel, 02/13/2010 M.D. Chantix 12/19/2009 Hx Tablets 1mg 1monthsu 1 po bid Boo Scales Month - Kristopher Batres 08/13/2010 M.D. [facility] 11/20/2009 Hx eval/Rx for Boo Lennon - chronic Gisel, 12/19/2009 back pain M.D. Chantix Starting 11/20/2009 Hx Tablets 0.5mg X 11 per 3 Boo Summers - & 1 mg directions 3 Gisel, 12/19/2009 X 8 M.D. . 4 Flonase 09/28/2009 Hx Suspension 50mcg/Act 1Bottle 1 4 Boo Lennon - intranasal 7 Gisel, 11/16/2012 puff to 7 M.D. each . nostril 8 daily Clonazepam 08/28/2009 Hx Tablets 0.5mg 60tabs 1 po daily Boo Batres, 11/19/2011 M.D. Clonazepam 08/07/2009 Hx Tablets 1mg 30tabs take one 3 Murli - twice a day 3 Kelly, 08/28/2009 for one 8 M.D. week and . then take 4 one at night only till your next appointment Augmentin 08/07/2009 Hx Tablets 875-125mg 28tabs one twice a 3 Murli - day for 14 3 Kelly, 08/28/2009 days 8 M.D. . 4 Clonazepam 06/19/2009 Hx Tablets 1mg 90tabs 1 po in am, 3 Thananart, - 2 po qpm 0 Radha, 08/28/2009 0 M.D. . 0 2 Naproxen 06/19/2009 Hx Tablets 500mg 180tabs 1 tablet po Boo E. - bid prn Gisel, 01/17/2010 M.D. Zithromax Z-Kristopher 06/06/2009 Hx Tablets 250mg 1Pak take as Thananart, - directed Radha, 06/25/2009 M.D. Amoxicillin 05/28/2009 Hx Tablets 875mg 20tabs 1 tab po 4 Thananart, - bid x 10 d. 6 Radha, 06/25/2009 1 M.D. . 9 Naproxen 04/12/2009 Hx Tablets 500mg 60tabs 1 tab po 7 Thananart, - bid prn 2 Radha, 05/23/2009 9 M.D. . 1 Lyrica 04/12/2009 Hx Capsules 75mg 180caps 1 po bid 7 Thananart, - 2 Radha, 05/23/2009 9 M.D. . 1 Hydrocodone-Acet 03/29/2009 Hx 10-325mg 120units one tablet Thananart , aminophen - po qid prn Radha, 03/29/2009 M.D. Hydrocodone-Acet 03/29/2009 Hx Tablets 10-325mg 120tabs 1 tab po [place] aminophen - q6h (pt Marcos, 10/15/2016 states she M.D. takes routinely every 4 hours) Baclofen 02/07/2009 Hx Tablets 10mg 42tabs 1-2 tab po 7 Thananart, - tid prn 2 Radha, 08/07/2009 9 M.D. . 1 Clonazepam 12/07/2008 Hx Tablets 2mg 60tabs 1 tablet po 3 Bobbi - bid 0 Cotton, 08/07/2009 0 M.D. . 0 2 Percocet 12/07/2008 Hx Tablets 10-325mg 80tabs 1 q4h prn Thananart, - Radha, 03/29/2009 M.D. Tizanidine HCL 12/07/2008 Hx Tablets 4mg 120tabs 1 po q6h Thananart, - Radha, 07/20/2009 M.D. Amitriptyline 12/07/2008 Hx Tablets 50mg 90tabs 1 tab po Boo E. HCL - tid Gisel, 04/25/2010 M.Bib Fosamax 12/07/2008 Hx Tablets 70mg 12tabs one tablet Boo Saji - weekly Gisel, 03/04/2013 M.D. Diazepam 12/07/2008 Hx Tablets 10mg 120tabs 1 po tid Thananart, - Radha, 04/25/2009 M.DLadarius Propranolol HCL 12/07/2008 Hx Tablets 10mg 180tabs 1 po bid Boo ELadarius - Gisel, 02/13/2010 M.D. Furosemide 12/07/2008 Hx Tablets 20mg 60tabs 1 po bid Thananart, - Radha, 02/13/2010 MFam Slow Fe 12/07/2008 Hx Tablets ER 160mg 1 po qd 5x Thananart, - Radha, 11/18/2011 M.Bib Calcium/Vitamin 12/07/2008 Hx Tablets 500mg 60tabs 1 po bid Thananart, D - Radha, 10/13/2016 M.Bib Vit C 12/07/2008 Hx Tablets 250mg 2 po qd Thananart, - Radha, 02/13/2010 M.Bib Lyrica Hx Capsules 75mg 180caps 2 tabs po Thananart, - qhs Radha, 08/07/2009 M.Bib Tizanidine HCL Hx Tablets 4mg 90tabs 1 in am, 1 Unknown - in pm 10/23/2011 Savella Hx Misc 12.5&2 as directed Unknown Titration Pack - 5&50mg samples 03/27/2011 Vit A Hx 8000U 2 tab po Unknown - bid 10/13/2016 Ciprofloxacin Hx Tablets 500mg 14tabs 1 po bid Unknown HCL - 06/04/2010 Amitriptyline Hx 50mg 90units 1 by mouth Boo E. HCL - three times Gisel, 10/28/2017 a day M.D. Flexeril Hx Tablets 10mg 60tabs 1 po every Unknown - 6 hrs 09/25/2015 Stool Softener Hx Capsules 100mg 2 po tid Unknown - 07/21/2016 Tizanidine HCL Hx Tablets 4mg 120tabs 1 po tid Unknown - 01/28/2012 Proair HFA Hx Aerosol 108(90Base 1units 2 puffs by Unknown - ) mcg/Act mouth every 09/19/2014 4 hours as needed Magnesium Hx 1 po tid Unknown W/Calcium - 10/13/2016 Hydrocodone-Acet Hx Tablets 10-325mg Unknown aminophen - 07/29/2015 Topamax Hx Tablets 25mg 1 by mouth Unknown - once a day 03/11/2016 ( no longer taking) Fosamax Hx Tablets 70mg one tablet Unknown - weekly 09/25/2015 Nyquil Severe Hx prn Unknown Cold/Flu - 10/13/2016 Zinc Hx 80mg one tab bid Unknown - 10/13/2016 Methylprednisolo Hx TBPK 4mg Unknown ne - 05/07/2016 Meloxicam Hx Tablets 7.5mg take 1 tab Unknown - by mouth 06/26/2016 bid Meloxicam Hx Tablets 7.5mg take 1 tab Unknown - by mouth 10/13/2016 twice daily with food Slow Fe Hx Tablets ER 142(45Fe) 1 by mouth Unknown - mg every day 10/13/2016 Potassium Hx Capsules ER 10Meq 90caps 1 by mouth Caleb Chloride ER - every day Carlene Portillo, 10/21/2016 hold as of MFam 4.25.17 Furosemide Hx Tablets 20mg 90tabs 1 by mouth Caleb - MondaysCarlene, 11/07/2016WednesdaysMarissa Fridays - restart 10/21/16(bere ent did not start, needs Rx) Ascorbic Acid Hx Tablets 500mg 1 by mouth Unknown - every day 10/13/2016 Ferrous Hx Tablets 324(38Fe) take 1 Unknown Gluconate - mg tablet by 10/13/2016 mouth two times daily Warfarin Sodium Hx Tablets 1mg 90tabs as directed Anitra - based on Yas, 12/17/2016 results of M.D. patients Inr Acetaminophen Hx Tablets 325mg as needed Unknown - 03/23/2017 Amlodipine Hx Tablets 10mg 90tabs 1 by mouth Caleb Besylate - every day Carlene Portillo, 11/07/2016 hold as of MFam 4.25.17 Folic Acid Hx Tablets 1mg take one Unknown - capsule/tab 03/22/2017 let daily by mouth (not presently taking) Hair Skin And Hx Tablets 2 po qd Unknown Nails Formula - 08/22/2017 Medications Administered in Office Medication Date Status Form Strength Qnty SIG Indications Ordering Provider Prolia Administered Injection Boo E. Injection, 016 Gisel, Denosumab, 1MG M.D. Depomedrol Administered Injection Dirk Gallo, 40MG 016 M.D. Prolia Administered Injection Boo E. Injection, 016 Gisel, Denosumab, 1MG M.D. Prolia Administered Injection Nurse Visit Injection, 015 C Denosumab, 1MG Prolia Administered Injection Boo E. Injection, 015 Gisel, Denosumab, 1MG M.D. Depomedrol Administered Injection Dirk Gallo, 80MG 014 M.D. Depomedrol Administered Injection Dirk Gallo, 80MG 011 M.D. Immunizations CPT Code Status Date Vaccine Lot # [id number] Given 03/24/2017 Influenza Virus Vaccine, Quadrivalent, Split, Preservative Free 90106 Given 03/24/2017 Pneumococcal Conjugate Vaccine 13 Valent For Intramuscular Use 22781 Given 04/30/2016 Influenza Virus Vaccine, Quadrivalent, Split [id number] Virus, Im Use 05546 Given 06/25/2015 Influenza Virus Vaccine, Quadrivalent, Split, [id number] Preservative Free 75762 Given 09/19/2014 Pneumococcal Conjugate Vaccine 13 Valent For [id number] Intramuscular Use 47498 Given 07/28/2013 Tdap - Tetanus/Diptheria/Acellular Pertussis [id number] 14714 Given 03/11/2013 Pneumonia Vaccine [id number] 67303 Given 03/11/2013 Flu Vaccine Split Virus Preservative Free For [id number] Indiv 3Yr Older [id number] Given 03/27/2011 Fluzone Vaccine [id number] 01808 Given 05/24/2009 Influenza Virus Vaccine, Pandemic Formulation [id number] 57642 Given 05/24/2009 Administration Swine Flu Shot 10333 Given 06/24/2004 Td Toxoids Adsorbed For Use [id number] Or Older For Intramuscular Use Vital Signs Date Vital Result Comment 11/02/2017 Weight 158.00 lb Heart Rate 142 /min BP Systolic Sitting 136 mmHg BP Diastolic Sitting 84 mmHg O2 % BldC Oximetry 99 % 08/24/2017 Weight 159.00 lb Heart Rate 61 /min BP Systolic Sitting 130 mmHg BP Diastolic Sitting 66 mmHg O2 % BldC Oximetry 96 % 05/20/2017 Height 65 inches 5'5" Weight 160.00 lb with shoes Heart Rate 72 /min BP Systolic Sitting 148 mmHg LA reg cuff BP Diastolic Sitting 84 mmHg LA reg cuff BMI (Body Mass Index) 26.6 kg/m2 Ejection Fraction 60%-65% echo 03/31/17 03/23/2017 Height 65 inches 5'5" Weight 158.00 lb Heart Rate 64 /min BP Systolic 108 mmHg BP Diastolic 58 mmHg BMI (Body Mass Index) 26.3 kg/m2 Ejection Fraction 60-65% Echo 2016 02/10/2017 Height 65 inches 5'5" Weight 156.50 lb with shoes Heart Rate 80 /min BP Systolic Sitting 160 mmHg LA reg cuff BP Diastolic Sitting 84 mmHg LA reg cuff BMI (Body Mass Index) 26.0 kg/m2 Ejection Fraction 60% - 65% echo 10/24/16 11/07/2016 Height 65 inches 5'5" Weight 180.00 lb Heart Rate 82 /min BP Systolic Sitting 165 mmHg Lue reg cuff BP Diastolic Sitting 75 mmHg Lue reg cuff BP Systolic Standing 158 mmHg Lue reg cuff BP Diastolic Standing 72 mmHg Lue reg cuff Respiratory Rate 16 /min BMI (Body Mass Index) 30.0 kg/m2 10/21/2016 Height 65 inches 5'5" Weight 178.50 lb with shoes Heart Rate 76 /min BP Systolic Sitting 134 mmHg Lue reg cuff BP Diastolic Sitting 68 mmHg Lue reg cuff BP Systolic Standing 128 mmHg Lue reg cuff BP Diastolic Standing 62 mmHg Lue reg cuff Respiratory Rate 17 /min BMI (Body Mass Index) 29.7 kg/m2 10/14/2016 Weight 181.00 lb with shoes Heart Rate 74 /min BP Systolic Sitting 112 mmHg LA lrgcuff BP Diastolic Sitting 60 mmHg LA lrgcuff BP Systolic Standing 110 mmHg la repeat sitting BP Diastolic Standing 56 mmHg la repeat sitting Ejection Fraction >65% echo 09/22/16 10/07/2016 Weight 183.00 lb Heart Rate 82 /min BP Systolic Sitting 122 mmHg BP Diastolic Sitting 76 mmHg Respiratory Rate 15 /min Body Temperature 98.1 F O2 % BldC Oximetry 98 % 09/11/2016 Height 65 inches 5'5" Weight 187.00 lb Heart Rate 72 /min BP Systolic Sitting 114 mmHg Ra reg BP Diastolic Sitting 68 mmHg Ra reg BMI (Body Mass Index) 31.1 kg/m2 Ejection Fraction 60%-65% 08/08/16 Arnav 09/02/2016 Height 65 inches 5'5" Weight 185.50 lb with shoes Heart Rate 76 /min BP Systolic Sitting 144 mmHg LA reg cuff BP Diastolic Sitting 72 mmHg LA reg cuff BMI (Body Mass Index) 30.9 kg/m2 Ejection Fraction 60% - 65% stress test 08/06/16 07/22/2016 Height 65 inches 5'5" Weight 184.25 lb with shoes Heart Rate 84 /min BP Systolic Sitting 128 mmHg LA lrg cuff BP Diastolic Sitting 68 mmHg LA lrg cuff BMI (Body Mass Index) 30.7 kg/m2 Ejection Fraction 55% - 60% echo 03/11/16 07/16/2016 Height 65 inches 5'5" Weight 186.00 lb Pain Level 5 BMI (Body Mass Index) 30.9 kg/m2 06/30/2016 Height 65 inches 5'5" Weight 186.00 lb Heart Rate 76 /min BP Systolic Sitting 128 mmHg BP Diastolic Sitting 70 mmHg Pain Level 7 BMI (Body Mass Index) 30.9 kg/m2 06/26/2016 Height 65 inches 5'5" Heart Rate 80 /min Apical BP Systolic 128 mmHg Ra, reg BP Diastolic 76 mmHg Ra, reg BP Systolic Sitting 134 mmHg LA, reg BP Diastolic Sitting 76 mmHg LA, reg BP Systolic Standing 118 mmHg LA, reg BP Diastolic Standing 70 mmHg LA, reg 06/05/2016 Height 65 inches 5'5" Weight 182.00 lb Heart Rate 90 /min BP Systolic 168 mmHg LA, regular BP Diastolic 90 mmHg LA, regular BP Systolic Sitting 171 mmHg LA, home unit BP Diastolic Sitting 92 mmHg LA, home unit BMI (Body Mass Index) 30.3 kg/m2 Ejection Fraction 55-60% echo 03/11/16 05/08/2016 Height 65 inches 5'5" Weight 184.00 lb w/shoes Heart Rate 92 /min BP Systolic Sitting 190 mmHg LA lg cuff BP Diastolic Sitting 86 mmHg LA lg cuff BMI (Body Mass Index) 30.6 kg/m2 Ejection Fraction 55-60% Echo 03/11/16 04/30/2016 Height 65 inches 5'5" Weight 180.12 lb Heart Rate 100 /min BP Systolic 160 mmHg BP Diastolic 80 mmHg Body Temperature 99.2 F O2 % BldC Oximetry 97 % BMI (Body Mass Index) 30.0 kg/m2 04/10/2016 Height 65 inches 5'5" Weight 184.00 lb w/ shoes Heart Rate 70 /min reg BP Systolic Sitting 144 mmHg Rue, reg cuff BP Diastolic Sitting 84 mmHg Rue, reg cuff BP Systolic Standing 140 mmHg Rue BP Diastolic Standing 80 mmHg Rue Respiratory Rate 16 /min BMI (Body Mass Index) 30.6 kg/m2 Ejection Fraction 55-60% as of 03/11/16 echo 03/24/2016 Height 65 inches 5'5" Weight 189.00 lb Pain Level 10 BMI (Body Mass Index) 31.4 kg/m2 03/05/2016 Height 64.5 inches 5'4.50" Weight 183.00 lb w/shoes Heart Rate 84 /min BP Systolic Sitting 158 mmHg LA lg cuff BP Diastolic Sitting 80 mmHg LA lg cuff BP Systolic Standing 158 mmHg la repeat sit BP Diastolic Standing 72 mmHg la repeat sit BMI (Body Mass Index) 30.9 kg/m2 Ejection Fraction 60-65% Echo 02/12/10 02/18/2016 Height 64.5 inches 5'4.50" Weight 182.38 lb Heart Rate 89 /min BP Systolic 130 mmHg BP Diastolic 82 mmHg Body Temperature 99.3 F O2 % BldC Oximetry 97 % BMI (Body Mass Index) 30.8 kg/m2 09/25/2015 Height 64.5 inches 5'4.50" Weight 169.00 lb Heart Rate 81 /min BP Systolic Sitting 140 mmHg BP Diastolic Sitting 80 mmHg Body Temperature 98.1 F O2 % BldC Oximetry 97 % BMI (Body Mass Index) 28.6 kg/m2 08/24/2015 Height 65.75 inches 5'5.75" Weight 169.00 lb Heart Rate 72 /min BP Systolic Sitting 144 mmHg LA,reg BP Diastolic Sitting 82 mmHg LA,reg BMI (Body Mass Index) 27.5 kg/m2 Ejection Fraction 60%-65% 02/12/10 07/30/2015 Height 65.75 inches 5'5.75" Weight 171.75 lb w/shoes Heart Rate 92 /min BP Systolic Sitting 170 mmHg LA reg cuff BP Diastolic Sitting 90 mmHg LA reg cuff BMI (Body Mass Index) 27.9 kg/m2 Ejection Fraction 60-65 echo 02/12/10 06/25/2015 Weight 172.00 lb Heart Rate 80 /min BP Systolic Sitting 156 mmHg BP Diastolic Sitting 83 mmHg Body Temperature 98.2 F 03/19/2015 Height 65 inches 5'5" Weight 174.00 lb Heart Rate 78 /min BP Systolic Sitting 150 mmHg BP Diastolic Sitting 80 mmHg Pain Level 6 neck BMI (Body Mass Index) 29.0 kg/m2 01/26/2015 Height 65 inches 5'5" Weight 186.00 lb Heart Rate 88 /min BP Systolic Sitting 134 mmHg BP Diastolic Sitting 82 mmHg Body Temperature 98.8 F O2 % BldC Oximetry 98 % BMI (Body Mass Index) 30.9 kg/m2 09/19/2014 Height 65 inches 5'5" Weight 193.50 lb Heart Rate 91 /min BP Systolic Sitting 150 mmHg BP Diastolic Sitting 84 mmHg Body Temperature 98.6 F O2 % BldC Oximetry 97 % BMI (Body Mass Index) 32.2 kg/m2 02/27/2014 Height 65 inches 5'5" Weight 203.00 lb Heart Rate 80 /min BP Systolic Sitting 160 mmHg BP Diastolic Sitting 88 mmHg Body Temperature 98.9 F BMI (Body Mass Index) 33.8 kg/m2 01/09/2014 Height 65 inches 5'5" Weight 20.25 lb Heart Rate 84 /min BP Systolic Sitting 154 mmHg BP Diastolic Sitting 74 mmHg Respiratory Rate 16 /min BMI (Body Mass Index) 3.4 kg/m2 09/05/2013 Height 65 inches 5'5" Weight 176.00 lb Heart Rate 91 /min BP Systolic 145 mmHg BP Diastolic 89 mmHg BMI (Body Mass Index) 29.3 kg/m2 08/24/2013 Height 65 inches 5'5" Weight 184.00 lb Heart Rate 80 /min BP Systolic Sitting 140 mmHg BP Diastolic Sitting 80 mmHg Body Temperature 98.8 F BMI (Body Mass Index) 30.6 kg/m2 07/28/2013 Height 65 inches 5'5" Weight 176.25 lb Heart Rate 96 /min BP Systolic Sitting 146 mmHg BP Diastolic Sitting 86 mmHg BMI (Body Mass Index) 29.3 kg/m2 05/23/2013 Height 65.75 inches 5'5.75" Weight 176.00 lb Heart Rate 96 /min BP Systolic Sitting 140 mmHg BP Diastolic Sitting 80 mmHg BMI (Body Mass Index) 28.6 kg/m2 03/11/2013 Height 55.75 inches 4'7.75" Weight 171.50 lb Heart Rate 88 /min BP Systolic Sitting 132 mmHg BP Diastolic Sitting 86 mmHg BMI (Body Mass Index) 38.8 kg/m2 05/21/2012 Height 65.25 inches 5'5.25" Weight 170.00 lb Heart Rate 80 /min BP Systolic 138 mmHg BP Diastolic 80 mmHg BMI (Body Mass Index) 28.1 kg/m2 01/28/2012 Height 65.25 inches 5'5.25" Weight 171.75 lb Heart Rate 80 /min BP Systolic Sitting 124 mmHg BP Diastolic Sitting 78 mmHg BMI (Body Mass Index) 28.4 kg/m2 12/11/2011 Height 64.75 inches 5'4.75" Weight 176.38 lb Heart Rate 92 /min rechecked 80 and reg BP Systolic Sitting 90 mmHg BP Diastolic Sitting 62 mmHg BMI (Body Mass Index) 29.6 kg/m2 11/19/2011 Height 64.75 inches 5'4.75" Weight 178.25 lb Heart Rate 74 /min BP Systolic 120 mmHg BP Diastolic 70 mmHg BP Systolic Standing 100 mmHg BP Diastolic Standing 70 mmHg Respiratory Rate 16 /min BMI (Body Mass Index) 29.9 kg/m2 11/13/2011 Height 64.75 inches 5'4.75" Weight 179.25 lb Heart Rate 80 /min BP Systolic Sitting 121 mmHg BP Diastolic Sitting 76 mmHg BMI (Body Mass Index) 30.1 kg/m2 10/23/2011 Weight 184.00 lb Heart Rate 71 /min BP Systolic Sitting 108 mmHg BP Diastolic Sitting 68 mmHg Body Temperature 97.8 F lt ear O2 % BldC Oximetry 97 % room air 07/31/2011 Height 65 inches 5'5" Weight 192.50 lb Heart Rate 96 /min BP Systolic Sitting 144 mmHg BP Diastolic Sitting 84 mmHg BMI (Body Mass Index) 32.0 kg/m2 06/05/2011 Height 65.5 inches 5'5.50" Weight 199.00 lb Heart Rate 111 /min BP Systolic Sitting 144 mmHg L BP Diastolic Sitting 70 mmHg L BMI (Body Mass Index) 32.6 kg/m2 03/27/2011 Height 65.5 inches 5'5.50" Weight 210.25 lb BP Systolic 148 mmHg BP Diastolic 82 mmHg BMI (Body Mass Index) 34.5 kg/m2 05/13/2010 Weight 205.00 lb Heart Rate 76 /min BP Systolic Sitting 146 mmHg BP Diastolic Sitting 86 mmHg 04/25/2010 Weight 204.00 lb Heart Rate 84 /min BP Systolic 118 mmHg BP Diastolic 80 mmHg 03/19/2010 Heart Rate 80 /min BP Systolic 122 mmHg BP Diastolic 72 mmHg Respiratory Rate 16 /min Body Temperature 97.8 F 03/15/2010 Weight 196.00 lb Heart Rate 82 /min BP Systolic Sitting 132 mmHg BP Diastolic Sitting 82 mmHg 02/13/2010 Height 65 inches 5'5" Heart Rate 79 /min BP Systolic Sitting 150 mmHg L BP Diastolic Sitting 74 mmHg L 02/06/2010 Weight 194.00 lb Heart Rate 81 /min BP Systolic Sitting 160 mmHg BP Diastolic Sitting 82 mmHg 01/17/2010 Weight 189.00 lb Heart Rate 98 /min BP Systolic Sitting 142 mmHg BP Diastolic Sitting 72 mmHg 12/26/2009 Weight 187.00 lb Heart Rate 88 /min BP Systolic Sitting 120 mmHg BP Diastolic Sitting 80 mmHg 11/26/2009 Heart Rate 82 /min BP Systolic Sitting 124 mmHg BP Diastolic Sitting 70 mmHg 11/20/2009 Weight 195.00 lb Heart Rate 78 /min BP Systolic Sitting 140 mmHg BP Diastolic Sitting 84 mmHg 09/28/2009 Weight 199.00 lb Heart Rate 78 /min BP Systolic 160 mmHg BP Diastolic 90 mmHg 08/28/2009 Weight 207.00 lb Heart Rate 88 /min BP Systolic Sitting 110 mmHg BP Diastolic Sitting 62 mmHg 08/07/2009 Weight 206.00 lb Heart Rate 72 /min BP Systolic Sitting 146 mmHg BP Diastolic Sitting 90 mmHg 07/20/2009 Weight 202.00 lb Heart Rate 64 /min BP Systolic Sitting 142 mmHg BP Diastolic Sitting 84 mmHg Body Temperature 98.5 F 06/19/2009 Weight 199.00 lb Heart Rate 80 /min BP Systolic Sitting 112 mmHg BP Diastolic Sitting 68 mmHg 05/28/2009 Weight 198.00 lb Heart Rate 74 /min BP Systolic Sitting 160 mmHg BP Diastolic Sitting 86 mmHg Body Temperature 98.6 F 04/25/2009 Weight 206.50 lb Heart Rate 80 /min BP Systolic Sitting 142 mmHg BP Diastolic Sitting 82 mmHg Body Temperature 98.5 F 04/12/2009 Weight 202.25 lb Heart Rate 77 /min BP Systolic Sitting 125 mmHg BP Diastolic Sitting 83 mmHg Body Temperature 97.2 F 03/21/2009 Weight 201.00 lb Heart Rate 62 /min BP Systolic Sitting 132 mmHg BP Diastolic Sitting 84 mmHg 02/07/2009 Weight 211.25 lb Heart Rate 80 /min BP Systolic Sitting 146 mmHg BP Diastolic Sitting 88 mmHg 12/07/2008 Weight 211.50 lb Heart Rate 68 /min BP Systolic Sitting 156 mmHg BP Diastolic Sitting 84 mmHg Results Test Date Test Result H/L Range Note Type & Screen 09/23/2017 Patient Blood Type A Positive Antibody Screen NEGATIVE Laboratory test finding 09/23/2017 Magnesium 3.0 mg/dL High 1.9-2.7 Lipase 27 U/L 11.0-82.0 C Reactive Protein 26.57 mg/L High < 5.00 1 Troponin-I (TnI) 0.09 ng/mL High <0.04 2 TSH (Thyroid Stim Horm) 2.02 mcIU/mL 0.34-5.60 CBC Auto Diff 09/23/2017 White Blood Count 14.3 10^3/uL High 3.5-10.8 Red Blood Count 3.90 10^6/uL Low 4.0-5.4 Hemoglobin 12.1 g/dL 12.0-16.0 Hematocrit 36 % 35-47 Mean Corpuscular Volume 93 fL 80-97 Mean Corpuscular Hemoglobin 31 pg 27-31 Mean Corpuscular HGB Conc 34 g/dL 31-36 Red Cell Distribution Width 15 % 10.5-15 Platelet Count 153 10^3/uL 150-450 Mean Platelet Volume 8.8 um3 7.4-10.4 Abs Neutrophils 11.5 10^3/uL High 1.5-7.7 Abs Lymphocytes 1.8 10^3/uL 1.0-4.8 Abs Monocytes 0.9 10^3/uL High 0-0.8 Abs Eosinophils 0.1 10^3/uL 0-0.6 Abs Basophils 0 10^3/uL 0-0.2 Abs Nucleated RBC 0 10^3/uL Granulocyte % 79.9 % 38-83 Lymphocyte % 12.5 % Low 25-47 Monocyte % 6.6 % 0-7 Eosinophil % 0.7 % 0-6 Basophil % 0.3 % 0-2 Nucleated Red Blood Cells % 0 Laboratory test finding 09/23/2017 Lactic Acid 0.6 mmol/L 0.5-2.0 3 Comp Metabolic Panel 09/23/2017 Sodium 136 mmol/L Low 139-145 Potassium 4.3 mmol/L 3.5-5.0 Chloride 102 mmol/L 101-111 Co2 Carbon Dioxide 26 mmol/L 22-32 Anion Gap 8 mmol/L 2-11 Glucose 107 mg/dL High 70-100 Blood Urea Nitrogen 39 mg/dL High 6-24 Creatinine 1.76 mg/dL High 0.51-0.95 BUN/Creatinine Ratio 22.2 High 8-20 Calcium 9.2 mg/dL 8.6-10.3 Total Protein 6.4 g/dL 6.4-8.9 Albumin 3.6 g/dL 3.2-5.2 Globulin 2.8 g/dL 2-4 Albumin/Globulin Ratio 1.3 1-3 Total Bilirubin 0.30 mg/dL 0.2-1.0 Alkaline Phosphatase 107 U/L High 34-104 Alt 15 U/L 7-52 Ast 18 U/L 13-39 Egfr Non- 28.5 >60 Egfr 36.7 >60 4 Laboratory test finding 09/23/2017 Partial Thrombo Time 27.0 seconds 26.0 -36.3 PTT Inr/Protime 09/23/2017 Inr 0.90 0.77-1.02 CBC Auto Diff 03/03/2017 White Blood Count 11.3 10^3/uL High 3.5-10.8 Red Blood Count 4.44 10^6/uL 4.0-5.4 Hemoglobin 13.2 g/dL 12.0-16.0 Hematocrit 41 % 35-47 Mean Corpuscular Volume 92 fL 80-97 Mean Corpuscular Hemoglobin 30 pg 27-31 Mean Corpuscular HGB Conc 32 g/dL 31-36 Red Cell Distribution Width 16 % High 10.5-15 Platelet Count 170 10^3/uL 150-450 Mean Platelet Volume 11 um3 High 7.4-10.4 Abs Neutrophils 7.9 10^3/uL High 1.5-7.7 Abs Lymphocytes 2.4 10^3/uL 1.0-4.8 Abs Monocytes 0.9 10^3/uL High 0-0.8 Abs Eosinophils 0.2 10^3/uL 0-0.6 Abs Basophils 0 10^3/uL 0-0.2 Abs Nucleated RBC 0.01 10^3/uL Granulocyte % 69.5 % 38-83 Lymphocyte % 21.0 % Low 25-47 Monocyte % 7.8 % 1-9 Eosinophil % 1.3 % 0-6 Basophil % 0.4 % 0-2 Nucleated Red Blood Cells % 0.1 Inr/Protime 03/03/2017 Inr 0.88 Low 0.89-1.11 Lipid Panel - [facility] 03/03/2017 Creatine Kinase(CK) 61 U/L 10-223 Comp Metabolic Panel 03/03/2017 Sodium 141 mmol/L 133-145 Potassium 3.9 mmol/L 3.5-5.0 Chloride 107 mmol/L 101-111 Co2 Carbon Dioxide 29 mmol/L 22-32 Anion Gap 5 mmol/L 2-11 Glucose 101 mg/dL High 70-100 Blood Urea Nitrogen 23 mg/dL 6-24 Creatinine 1.00 mg/dL High 0.51-0.95 BUN/Creatinine Ratio 23.0 High 8-20 Calcium 9.4 mg/dL 8.6-10.3 Total Protein 6.3 g/dL Low 6.4-8.9 Albumin 3.7 g/dL 3.2-5.2 Globulin 2.6 g/dL 2-4 Albumin/Globulin Ratio 1.4 1-3 Total Bilirubin 0.40 mg/dL 0.2-1.0 Alkaline Phosphatase 99 U/L 34-104 Alt 13 U/L 7-52 Ast 16 U/L 13-39 Egfr Non- 54.8 >60 Egfr 70.5 >60 5 Lipid Profile (Trig/Chol/HDL) 03/03/2017 Triglycerides 90 mg/dL 6 Cholesterol 181 mg/dL 7 HDL Cholesterol 73.3 mg/dL 8 LDL Cholesterol 90 mg/dL 9 Laboratory test finding 03/03/2017 TSH (Thyroid Stim 2.36 mcIU/mL 0.34- 5.60 Horm) Iron & Iron Binding 03/03/2017 Iron 34 g/dL Low 50-212 Capacity Unsaturated Iron Binding 277 g/dL Total Iron Binding Capacity 311 g/dL 250-450 % Iron Saturation 11 % Low 15-55 Laboratory test finding 03/03/2017 B-Type Natriuretic Peptide BNP 259 pg/mL High 10 Protime W/ Inr 12/17/2016 Prothrombin Time 20.7 Inr 1.7 Protime W/ Inr 12/10/2016 Prothrombin Time 19.8 Inr 1.7 Protime W/ Inr 11/26/2016 Prothrombin Time 23.9 Inr 2.0 Protime W/ Inr 11/19/2016 Prothrombin Time 34.9 Inr 2.9 Inr/Protime 11/13/2016 Inr 3.22 High 0.89-1.11 Inr/Protime 11/10/2016 Inr 2.51 High 0.89-1.11 Laboratory test finding 11/10/2016 B-Type Natriuretic 262 pg/mL High 11 Peptide BNP Basic Metabolic Panel 11/10/2016 Sodium 137 mmol/L 133-145 Potassium 4.4 mmol/L 3.5-5.0 Chloride 105 mmol/L 101-111 Co2 Carbon Dioxide 25 mmol/L 22-32 Anion Gap 7 mmol/L 2-11 Glucose 85 mg/dL 70-100 Blood Urea Nitrogen 12 mg/dL 6-24 Creatinine 0.88 mg/dL 0.51-0.95 BUN/Creatinine Ratio 13.6 8-20 Calcium 9.4 mg/dL 8.6-10.3 Egfr Non- 63.5 >60 Egfr 81.7 >60 12 CBC Auto Diff 11/10/2016 White Blood Count 9.7 10^3/uL 3.5-10.8 Red Blood Count 4.27 10^6/uL 4.0-5.4 Hemoglobin 12.3 g/dL 12.0-16.0 Hematocrit 39 % 35-47 Mean Corpuscular Volume 91 fL 80-97 Mean Corpuscular Hemoglobin 29 pg 27-31 Mean Corpuscular HGB Conc 32 g/dL 31-36 Red Cell Distribution Width 16 % High 10.5-15 Platelet Count 222 10^3/uL 150-450 Mean Platelet Volume 9 um3 7.4-10.4 Abs Neutrophils 6.5 10^3/uL 1.5-7.7 Abs Lymphocytes 2.3 10^3/uL 1.0-4.8 Abs Monocytes 0.6 10^3/uL 0-0.8 Abs Eosinophils 0.3 10^3/uL 0-0.6 Abs Basophils 0.1 10^3/uL 0-0.2 Abs Nucleated RBC 0 10^3/uL Granulocyte % 67.0 % 38-83 Lymphocyte % 23.8 % Low 25-47 Monocyte % 5.7 % 1-9 Eosinophil % 2.8 % 0-6 Basophil % 0.7 % 0-2 Nucleated Red Blood Cells % 0 Iron & Iron Binding Capacity 11/10/2016 Iron 96 g/dL 50-212 Unsaturated Iron Binding 157 g/dL Total Iron Binding Capacity 253 g/dL 250-450 % Iron Saturation 38 % 15-55 Laboratory test finding 11/10/2016 Magnesium 1.9 mg/dL 1.9-2.7 13 Inr/Protime 11/06/2016 Inr 1.40 High 0.89-1.11 Inr/Protime 10/30/2016 Inr 1.48 High 0.89-1.11 Protime W/ Inr 10/27/2016 Inr 2.7 Protime W/ Inr 2016 Inr 1.5 Protime W/ Inr 10/20/2016 Inr 1.2 CBC Auto Diff 10/16/2016 White Blood Count 11.4 10^3/uL High 3.5-10.8 Red Blood Count 3.67 10^6/uL Low 4.0-5.4 Hemoglobin 10.8 g/dL Low 12.0-16.0 Hematocrit 34 % Low 35-47 Mean Corpuscular Volume 92 fL 80-97 Mean Corpuscular Hemoglobin 30 pg 27-31 Mean Corpuscular HGB Conc 32 g/dL 31-36 Red Cell Distribution Width 16 % High 10.5-15 Platelet Count 176 10^3/uL 150-450 Mean Platelet Volume 9 um3 7.4-10.4 Abs Neutrophils 7.4 10^3/uL 1.5-7.7 Abs Lymphocytes 2.8 10^3/uL 1.0-4.8 Abs Monocytes 0.9 10^3/uL High 0-0.8 Abs Eosinophils 0.3 10^3/uL 0-0.6 Abs Basophils 0.1 10^3/uL 0-0.2 Abs Nucleated RBC 0 10^3/uL Granulocyte % 64.6 % 38-83 Lymphocyte % 24.8 % Low 25-47 Monocyte % 7.4 % 1-9 Eosinophil % 2.6 % 0-6 Basophil % 0.6 % 0-2 Nucleated Red Blood Cells % 0 Basic Metabolic Panel 10/16/2016 Sodium 139 mmol/L 133-145 Potassium 5.0 mmol/L 3.5-5.0 Chloride 107 mmol/L 101-111 Co2 Carbon Dioxide 22 mmol/L 22-32 Anion Gap 10 mmol/L 2-11 Glucose 75 mg/dL 70-100 Blood Urea Nitrogen 31 mg/dL High 6-24 Creatinine 1.26 mg/dL High 0.51-0.95 BUN/Creatinine Ratio 24.6 High 8-20 Calcium 9.3 mg/dL 8.6-10.3 Egfr Non- 42.1 >60 Egfr 54.1 >60 14 Laboratory test finding 10/16/2016 B-Type Natriuretic Peptide BNP 370 pg/mL High 15 Magnesium 2.1 mg/dL 1.9-2.7 Iron & Iron Binding Capacity 10/16/2016 Iron 28 g/dL Low 50-212 Unsaturated Iron Binding 252 g/dL Total Iron Binding Capacity 280 g/dL 250-450 % Iron Saturation 10 % Low 15-55 Inr/Protime 10/16/2016 Inr 1.44 High 0.89-1.11 Protime W/ Inr 10/16/2016 Inr 1.5 CBC Auto Diff 10/07/2016 White Blood Count 11.7 10^3/uL High 3.5-10.8 Red Blood Count 3.67 10^6/uL Low 4.0-5.4 Hemoglobin 10.8 g/dL Low 12.0-16.0 Hematocrit 34 % Low 35-47 Mean Corpuscular Volume 93 fL 80-97 Mean Corpuscular Hemoglobin 29 pg 27-31 Mean Corpuscular HGB Conc 32 g/dL 31-36 Red Cell Distribution Width 16 % High 10.5-15 Platelet Count 258 10^3/uL 150-450 Mean Platelet Volume 10 um3 7.4-10.4 Abs Neutrophils 8.6 10^3/uL High 1.5-7.7 Abs Lymphocytes 2.2 10^3/uL 1.0-4.8 Abs Monocytes 0.7 10^3/uL 0-0.8 Abs Eosinophils 0.1 10^3/uL 0-0.6 Abs Basophils 0.1 10^3/uL 0-0.2 Abs Nucleated RBC 0.01 10^3/uL Granulocyte % 73.6 % 38-83 Lymphocyte % 18.8 % Low 25-47 Monocyte % 6.0 % 1-9 Eosinophil % 1.1 % 0-6 Basophil % 0.5 % 0-2 Nucleated Red Blood Cells % 0.1 Basic Metabolic Panel 10/07/2016 Sodium 138 mmol/L 133-145 Potassium 4.7 mmol/L 3.5-5.0 Chloride 106 mmol/L 101-111 Co2 Carbon Dioxide 25 mmol/L 22-32 Anion Gap 7 mmol/L 2-11 Glucose 104 mg/dL High 70-100 Blood Urea Nitrogen 14 mg/dL 6-24 Creatinine 0.95 mg/dL 0.51-0.95 BUN/Creatinine Ratio 14.7 8-20 Calcium 9.5 mg/dL 8.6-10.3 Egfr Non- 58.3 >60 Egfr 75.0 >60 16 Protime W/ Inr 10/07/2016 Prothrombin Time 12.0 Inr 1.0 Laboratory test finding 09/22/2016 Troponin-I (TnI) 0.90 ng/mL High < 0.04 17 Venous Blood Gas 09/05/2016 Venous Blood pH 7.32 Low 7.33-7.43 18 Venous Pco2 46 mmHg 41-51 18 Venous Po2 34 mmHg Low 35-45 18 Venous O2 Saturation 65.7 % Low 70-80 18 Venous Blood Base Excess -2.5 Low 0-4 18, 19 Venous Bicarbonate Hco3 22.2 mmol/L Low 24-28 18 Venous Blood Gas 09/05/2016 Venous Blood pH 7.32 Low 7.33-7.43 20 Venous Pco2 48 mmHg 41-51 20 Venous Po2 35 mmHg 35-45 20 Venous O2 Saturation 65.7 % Low 70-80 20 Venous Blood Base Excess -1.7 Low 0-4 20, 21 Venous Bicarbonate Hco3 22.8 mmol/L Low 24-28 20 Venous Blood Gas 09/05/2016 Venous Blood pH 7.32 Low 7.33-7.43 22 Venous Pco2 47 mmHg 41-51 22 Venous Po2 37 mmHg 35-45 22 Venous O2 Saturation 70.6 % 70-80 22 Venous Blood Base Excess -2.1 Low 0-4 22, 23 Venous Bicarbonate Hco3 22.6 mmol/L Low 24-28 22 Arterial Blood Gas 09/05/2016 PH Arterial 7.34 Low 7.35-7.45 24 Pco2 Arterial 43 mmHg 35-45 24 Po2 Arterial 63 mmHg Low 80-100 24 O2 Saturation Arterial 89.4 % Low 95-98 24 Base Excess Arterial -2.6 Low -2.0-2.0 24, 25 Hco3 Arterial 22.7 mmol/L 19-31 24 Basic Metabolic Panel 09/02/2016 Sodium 133 mmol/L 133-145 Potassium 4.7 mmol/L 3.5-5.0 Chloride 103 mmol/L 101-111 Co2 Carbon Dioxide 26 mmol/L 22-32 Anion Gap 4 mmol/L 2-11 Glucose 96 mg/dL 70-100 Blood Urea Nitrogen 20 mg/dL 6-24 Creatinine 1.11 mg/dL High 0.51-0.95 BUN/Creatinine Ratio 18.0 8-20 Calcium 9.1 mg/dL 8.6-10.3 Egfr Non- 48.7 >60 Egfr 62.7 >60 26 Inr/Protime 09/02/2016 Inr 0.86 Low 0.89-1.11 CBC Auto Diff 09/02/2016 White Blood Count 12.1 10^3/uL High 3.5-10.8 Red Blood Count 4.47 10^6/uL 4.0-5.4 Hemoglobin 13.3 g/dL 12.0-16.0 Hematocrit 41 % 35-47 Mean Corpuscular Volume 92 fL 80-97 Mean Corpuscular Hemoglobin 30 pg 27-31 Mean Corpuscular HGB Conc 33 g/dL 31-36 Red Cell Distribution Width 14 % 10.5-15 Platelet Count 231 10^3/uL 150-450 Mean Platelet Volume 9 um3 7.4-10.4 Abs Neutrophils 8.0 10^3/uL High 1.5-7.7 Abs Lymphocytes 3.3 10^3/uL 1.0-4.8 Abs Monocytes 0.7 10^3/uL 0-0.8 Abs Eosinophils 0.1 10^3/uL 0-0.6 Abs Basophils 0.1 10^3/uL 0-0.2 Abs Nucleated RBC 0.02 10^3/uL Granulocyte % 65.9 % 38-83 Lymphocyte % 26.9 % 25-47 Monocyte % 5.9 % 1-9 Eosinophil % 0.7 % 0-6 Basophil % 0.6 % 0-2 Nucleated Red Blood Cells % 0.2 Cath Panel 09/02/2016 Partial Thrombo Time 30.7 seconds 26.0-36.3 PTT Order 03/05/2016 EKG <pending> Vitamin B12 And 08/24/2015 Vitamin B12 628 pg/mL 180-914 27 Folate Serum Folic Acid (Folate) > 20.00 ng/mL >3.99 Iron & Iron Binding Capacity 08/24/2015 Iron 92 g/dL 50-212 Unsaturated Iron Binding 240 g/dL Total Iron Binding Capacity 332 g/dL 250-450 % Iron Saturation 28 % 15-55 CBC Auto Diff 08/10/2015 White Blood Count 9.9 10^3/uL 3.5-10.8 Red Blood Count 3.99 10^6/uL Low 4.0-5.4 Hemoglobin 13.0 g/dL 12.0-16.0 Hematocrit 40 % 35-47 Mean Corpuscular Volume 100 fL High 80-97 Mean Corpuscular Hemoglobin 33 pg High 27-31 Mean Corpuscular HGB Conc 33 g/dL 31-36 Red Cell Distribution Width 15 % 10.5-15 Platelet Count 254 10^3/uL 150-450 Mean Platelet Volume 9 um3 7.4-10.4 Abs Neutrophils 6.0 10^3/uL 1.5-7.7 Abs Lymphocytes 3.2 10^3/uL 1.0-4.8 Abs Monocytes 0.6 10^3/uL 0-0.8 Abs Eosinophils 0.1 10^3/uL 0-0.6 Abs Basophils 0.1 10^3/uL 0-0.2 Abs Nucleated RBC 0 10^3/uL Granulocyte % 60.4 % 38-83 Lymphocyte % 32.1 % 25-47 Monocyte % 5.6 % 1-9 Eosinophil % 1.3 % 0-6 Basophil % 0.6 % 0-2 Nucleated Red Blood Cells % 0 Comp Metabolic Panel 08/10/2015 Sodium 141 mmol/L 133-145 Potassium 4.7 mmol/L 3.5-5.0 Chloride 111 mmol/L 101-111 Co2 Carbon Dioxide 25 mmol/L 22-32 Anion Gap 5 mmol/L 2-11 Glucose 97 mg/dL 70-100 Blood Urea Nitrogen 16 mg/dL 6-24 Creatinine 1.08 mg/dL High 0.51-0.95 BUN/Creatinine Ratio 14.8 8-20 Calcium 9.0 mg/dL 8.6-10.3 Total Protein 6.1 g/dL Low 6.4-8.9 Albumin 3.7 g/dL 3.2-5.2 Globulin 2.4 g/dL 2-4 Albumin/Globulin Ratio 1.5 1-3 Total Bilirubin 0.30 mg/dL 0.2-1.0 Alkaline Phosphatase 66 U/L 34-104 Alt 16 U/L 7-52 Ast 15 U/L 13-39 Egfr Non- 50.5 >60 Egfr 64.9 >60 28 Lipid Profile (Trig/Chol/HDL) 08/10/2015 Triglycerides 80 mg/dL 29 Cholesterol 190 mg/dL 30 HDL Cholesterol 81.4 mg/dL 31 LDL Cholesterol 93 mg/dL 32 Laboratory test finding 08/10/2015 Magnesium 2.1 mg/dL 1.9-2.7 Creatine Kinase(CK) 43 U/L 10-223 TSH (Thyroid Stim Horm) 0.92 ?IU/mL 0.34-5.60 CBC No Diff 03/20/2015 White Blood Count 8.8 10^3/uL 4.8-10.8 Red Blood Count 4.26 10^6/uL 4.0-5.4 Hemoglobin 13.3 g/dL 12.0-16.0 Hematocrit 42 % 35-47 Mean Corpuscular Volume 98 fL High 80-97 Mean Corpuscular Hemoglobin 31 pg 27-31 Mean Corpuscular HGB Conc 32 g/dL 31-36 Red Cell Distribution Width 14 % 10.5-15 Platelet Count 229 10^3/uL 150-450 Mean Platelet Volume 9 um3 7.4-10.4 Basic Metabolic Panel 03/20/2015 Sodium 132 mmol/L Low 133-145 Potassium 4.6 mmol/L 3.5-5.0 Chloride 103 mmol/L 101-111 Co2 Carbon Dioxide 23 mmol/L 22-32 Anion Gap 6 mmol/L 2-11 Glucose 78 mg/dL 70-100 Blood Urea Nitrogen 20 mg/dL 6-24 Creatinine 1.12 mg/dL High 0.51-0.95 BUN/Creatinine Ratio 17.9 8-20 Calcium 8.9 mg/dL 8.6-10.3 Egfr Non- 48.4 >60 Egfr 62.2 >60 [address] - [facility] 11/03/2014 Creatine Kinase(CK) 55 U/L 10-223 34 Comp Metabolic Panel 11/03/2014 Sodium 138 mmol/L 133-145 Potassium 4.4 mmol/L 3.5-5.0 Chloride 107 mmol/L 101-111 Co2 Carbon Dioxide 26 mmol/L 22-32 Anion Gap 5 mmol/L 2-11 Glucose 103 mg/dL High 70-100 Blood Urea Nitrogen 15 mg/dL 6-24 Creatinine 0.90 mg/dL 0.51-0.95 BUN/Creatinine Ratio 16.7 8-20 Calcium 8.6 mg/dL 8.6-10.3 Total Protein 5.9 g/dL Low 6.4-8.9 Albumin 3.7 g/dL 3.2-5.2 Globulin 2.2 g/dL 2-4 Albumin/Globulin Ratio 1.7 1-3 Total Bilirubin 0.30 mg/dL 0.2-1.0 Alkaline Phosphatase 99 U/L 34-104 Alt 14 U/L 7-52 Ast 14 U/L 13-39 Egfr Non- 62.3 >60 Egfr 80.1 >60 35 Lipid Profile (Trig/Chol/HDL) 11/03/2014 Triglycerides 101 mg/dL 36 Cholesterol 155 mg/dL 37 HDL Cholesterol 64.2 mg/dL 38 LDL Cholesterol 71 mg/dL 39 CBC Auto Diff 11/03/2014 White Blood Count 13.2 10^3/uL High 4.8-10.8 Red Blood Count 4.01 10^6/uL 4.0-5.4 Hemoglobin 13.2 g/dL 12.0-16.0 Hematocrit 39 % 35-47 Mean Corpuscular Volume 97 fL 80-97 Mean Corpuscular Hemoglobin 33 pg High 27-31 Mean Corpuscular HGB Conc 34 g/dL 31-36 Red Cell Distribution Width 14 % 10.5-15 Platelet Count 284 10^3/uL 150-450 Mean Platelet Volume 9 um3 7.4-10.4 Abs Neutrophils 9.3 10^3/uL High 1.5-7.7 Abs Lymphocytes 2.8 10^3/uL 1.0-4.8 Abs Monocytes 0.8 10^3/uL 0-0.8 Abs Eosinophils 0.4 10^3/uL 0-0.6 Abs Basophils 0.1 10^3/uL 0-0.2 Abs Nucleated RBC 0.01 10^3/uL Granulocyte % 70.0 % 38-83 Lymphocyte % 20.8 % Low 25-47 Monocyte % 5.8 % 1-9 Eosinophil % 3.0 % 0-6 Basophil % 0.4 % 0-2 Nucleated Red Blood Cells % 0.1 CBC Auto Diff 03/22/2013 White Blood Count 13.2 10^3/uL High 4.8-10.8 Red Blood Count 4.56 10^6/uL 4.0-5.4 Hemoglobin 14.5 g/dL 12.0-16.0 Hematocrit 45 % 35-47 Mean Corpuscular Volume 98 fL High 80-97 Mean Corpuscular Hemoglobin 32 pg High 27-31 Mean Corpuscular HGB Conc 33 g/dL 31-36 Red Cell Distribution Width 14 % 10.5-15 Platelet Count 298 10^3/uL 150-450 Mean Platelet Volume 9 um3 7.4-10.4 Abs Neutrophils 7.8 10^3/uL High 1.5-7.7 Abs Lymphocytes 4.3 10^3/uL 1.0-4.8 Abs Monocytes 0.8 10^3/uL 0-0.8 Abs Eosinophils 0.2 10^3/uL 0-0.6 Abs Basophils 0.1 10^3/uL 0-0.2 Abs Nucleated RBC 0.01 10^3/uL Granulocyte % 59.3 % 38-83 Lymphocyte % 32.5 % 25-47 Monocyte % 5.9 % 1-9 Eosinophil % 1.8 % 0-6 Basophil % 0.5 % 0-2 Nucleated Red Blood Cells % 0.1 Lipid Profile (Trig/Chol/HDL) 03/22/2013 Triglycerides 98 mg/dL 40-200 Cholesterol 193 mg/dL Less than 200 HDL Cholesterol 84 mg/dL High 40-60 40 Cholesterol/HDL Ratio 2.3 Average 1-4.44 LDL Cholesterol 92.4 Less Than 100 41 Comp Metabolic Panel 03/22/2013 Sodium 137 mmol/L 133-145 Potassium 4.4 mmol/L 3.5-5.0 Chloride 103 mmol/L 101-111 Co2 Carbon Dioxide 27.0 mmol/L 22-32 Anion Gap 7.0 mmol/L 2-11 Glucose 97 mg/dL 70-100 Blood Urea Nitrogen 12 mg/dL 6-24 Creatinine 1.00 mg/dL 0.50-1.40 BUN/Creatinine Ratio 12.0 8-20 Calcium 9.5 mg/dL 8.1-9.9 Total Protein 5.8 g/dL Low 6.2-8.1 Albumin 3.5 g/dL 3.2-5.2 Globulin 2.3 g/dL 2-4 Albumin/Globulin Ratio 1.5 1-3 Total Bilirubin 0.6 mg/dL 0.4-1.5 Alkaline Phosphatase 91 U/L 30-110 Alt 26 U/L 14-54 Ast 26 U/L 12-42 Egfr Non- 55.5 >60 Egfr 71.3 >60 42 Laboratory test finding 03/22/2013 Hepatitis C Antibody Nonreactive Nonreactive Lipid Profile 01/26/2012 Triglyceride 95 mg/dL 40-200 (Trig/Chol/HDL) Cholesterol 189 mg/dL Less Than 200 43 High Density Lipoprotein 70 mg/dL High 40-60 44 Cholesterol/HDL Ratio 2.70 AVERAGE 1-4.44 Low Density Lipoprotein 100 mg/dL Less Than 100 45 Laboratory test finding 01/26/2012 Ast (Sgot) 17 U/L 12-42 Alt (SGPT) 16 U/L 14-54 DR Batres's Lab Panel 10/27/2011 TSH 0.97 MIU/ML 0.34-5.60 Comp Metabolic Panel 10/27/2011 Sodium 135 mmol/L 135-145 Potassium 4.7 mmol/L 3.5-5.0 Chloride 107 mmol/L 101-111 Co2 (Carbon Dioxide) 23.0 mmol/L 22-32 Anion Gap 5.0 mmol/L 2-11 46 Glucose 101 mg/dL High 70-100 BUN 12 mg/dL 6-24 Creatinine 1.1 mg/dL 0.50-1.40 One Over Creatinine 0.90 BUN/Creatinine Ratio 10.9 8-20 Calcium 9.0 mg/dL 8.1-9.9 Total Protein 6.0 GM/DL Low 6.2-8.1 Albumin 3.6 GM/DL 3.2-5.2 Globulin 2.4 GM/DL 2-4 Albumin/Globulin Ratio 1.5 1-3 Bilirubin Total 0.5 mg/dL 0.4-1.5 47 Alkaline Phosphatase 95 U/L 30-110 Alt (SGPT) 19 U/L 14-54 Ast (Sgot) 18 U/L 12-42 eGFR Non- 49.8 > 60 eGFR 64.1 > 60 48 Lipid Profile (Trig/Chol/HDL) 10/27/2011 Triglyceride 155 mg/dL 40-200 Cholesterol 272 mg/dL High Less Than 200 49 High Density Lipoprotein 62 mg/dL High 40-60 50 Cholesterol/HDL Ratio 4.39 AVERAGE 1-4.44 Low Density Lipoprotein 179 mg/dL High Less Than 100 51 CBC Auto Diff 10/27/2011 White Blood Count 12.3 CUMM High 4.8-10.8 Red Cell Count 4.14 CUMM Low 4.2-5.4 Hemoglobin 14.5 g/dL 12.0-16.0 Hematocrit 41 % 35-47 Mean Corpuscular Volume 100 um3 High 79-97 Mean Corpuscular Hemoglob 35 pg High 27-31 Mean Corpuscular HGB Cone 35 g/dL 32-36 Redcell Distribution WDTH 15 % 10.5-15 Platelet Count 303 CUMM 150-450 Mean Platelet Volume 8.9 um3 7.4-10.4 52 Manual Differential 10/27/2011 Polysegmented Neutrophil 79 % 38-83 Lymphocyte 16 % Low 25-47 Monocyte 5 % 0-13 Absolute Neutrophil Count 9.70 Anisocytosis SLIGHT Urinalysis W/Microscopic 07/31/2011 Ua Color YELLOW Yellow Appearance-Urine TURBID Clear Specific [place]-Ur 1.018 1.010-1.030 Esterase-Urine 3+ Negative Nitrite NEGATIVE Negative [id number] NEGATIVE Negative Protein-Urine TRACE Negative PH-Urine 6.0 5-9 Blood-Urine 1+ Negative Ketones-Urine NEGATIVE Negative Bilirubin-Ur NEGATIVE Negative Glucose-Urine NEGATIVE Negative RBC-Urine 0-3 0-2 Epith Cells-Ur MODERATE None WBC-Urine TNTC 0-5 Bacteria-Urine 3+ None Urine Culture & 07/31/2011 M <SEE 53 Sensitivi NOTE> Ursc-1 01/24/2010 Ampicillin <=2 54 Amikacin <=2 54 Ciprofloxacin <=0.25 54 Ceftriaxone <=1 54 Cefazolin <=4 54 Nitrofurantoin <=16 54 Gentamicin <=1 54 Imipenem <=1 54 Levofloxacin <=0.12 54 Trimeth-Sulfa <=20 54 Ceftazidime <=1 54 Tigecycline <=0.5 54 Piperacillin/Tazobactam <=4 54 CBC With Manual Diff 01/24/2010 White Blood Count 11.1 CUMM High 4.8-10.8 54 Red Cell Count 3.72 CUMM Low 4.2-5.4 54 Hemoglobin 12.1 g/dL 12.0-16.0 54 Hematocrit 36 % 35-47 54 Mean Corpuscular Volume 96 um3 79-97 54 Mean Corpuscular Hemoglob 33 pg High 27-31 54 Mean Corpuscular HGB Cone 34 g/dL 32-36 54 Redcell Distribution WDTH 13 % 10.5-15 54 Platelet Count 363 CUMM 150-450 54 Mean Platelet Volume 7.1 um3 Low 7.4-10.4 54 Polysegmented Neutrophil 67 % 38-83 54 Lymphocyte 22 % Low 25-47 54 Monocyte 4 % 0-13 54 Basophil 1 % 0-2 54 Atypical Lymph 6 % 0-6 54 Absolute Neutrophil Count 7.4 54 Anisocytosis SLIGHT 54 Toxic Granulation SLIGHT 54 Urinalysis W/Microscopic 01/24/2010 Ua Color YELLOW Yellow 54 Appearance-Urine CLEAR Clear 54 Specific [place]-Ur 1.010 1.010-1.030 54 Esterase-Urine 3+ Negative 54 Nitrite POSITIVE Negative 54 Zczwkxnlrgwb-[id number]-[id number] NEGATIVE Negative 54 Protein-Urine NEGATIVE Negative 54 PH-Urine 5.5 5-9 54 Blood-Urine NEGATIVE Negative 54 Ketones-Urine NEGATIVE Negative 54 Bilirubin-Ur NEGATIVE Negative 54 Glucose-Urine NEGATIVE Negative 54 WBC-Urine TNTC 0-5 54 RBC-Urine NONE SEEN 0-2 54 Epith Cells-Ur NONE None 54 Bacteria-Urine 3+ None 54 Urine Culture & 01/24/2010 Urine Culture ESCHERICHIA COLI 54, 55 Sensitivi Sensitivi Basic Metabolic 01/24/2010 Sodium 136 mmol/L 135-145 54 Panel Potassium 4.8 mmol/L 3.5-5.0 54 Chloride 105 mmol/L 101-111 54 Co2 (Carbon Dioxide) 24.0 mmol/L 22-32 54 Anion Gap 7.0 mmol/L 2-11 54, 56 Glucose 97 mg/dL 70-100 54, 57 BUN 12 mg/dL 6-24 54 Creatinine 1.10 mg/dL 0.50-1.40 54 One Over Creatinine 0.90 54 BUN/Creatinine Ratio 10.9 8-20 54 Calcium 9.1 mg/dL 8.1-9.9 54, 58 eGFR Non- 53.3 > 60 54 eGFR 64.5 > 60 54, 59 Urinalysis W/Microscopic 01/17/2010 Ua Color YELLOW Yellow Appearance-Urine CLEAR Clear Specific [place]-Ur 1.011 1.010-1.030 Esterase-Urine 2+ Negative Nitrite NEGATIVE Negative [id number]-[id number]-AWR NEGATIVE Negative Protein-Urine NEGATIVE Negative PH-Urine 5.5 5-9 Blood-Urine NEGATIVE Negative Ketones-Urine NEGATIVE Negative Bilirubin-Ur NEGATIVE Negative Glucose-Urine NEGATIVE Negative WBC-Urine TNTC 0-5 RBC-Urine 0-2 0-2 Epith Cells-Ur RARE None Bacteria-Urine TRACE None Urine Culture & 01/17/2010 Urine Culture SN2 60 Sensitivi Sensitivi Comp Metabolic Panel 12/26/2009 Sodium 133 mmol/L Low 135-145 Potassium 4.5 mmol/L 3.5-5.0 Chloride 102 mmol/L 101-111 Co2 (Carbon Dioxide) 24.0 mmol/L 22-32 Anion Gap 7.0 mmol/L 2-11 61 Glucose 98 mg/dL 70-100 62 BUN 13 mg/dL 6-24 Creatinine 1.50 mg/dL High 0.50-1.40 One Over Creatinine 0.60 BUN/Creatinine Ratio 8.7 8-20 Calcium 9.2 mg/dL 8.1-9.9 63 Total Protein 5.7 GM/DL Low 6.2-8.1 Albumin 3.8 GM/DL 3.2-5.2 Globulin 1.9 GM/DL Low 2-4 Albumin/Globulin Ratio 2.0 1-3 Bilirubin Total 1.0 mg/dL 0.4-1.5 64 Alkaline Phosphatase 84 U/L 30-110 Alt (SGPT) 15 U/L 14-54 Ast (Sgot) 17 U/L 12-42 eGFR Non- 37.3 > 60 eGFR 45.1 > 60 65 Laboratory test finding 12/26/2009 TSH 2.29 MIU/ML 0.34-5.60 CBC With Manual Diff 12/26/2009 White Blood Count 12.9 CUMM High 4.8-10.8 Red Cell Count 4.27 CUMM 4.2-5.4 Hemoglobin 13.9 g/dL 12.0-16.0 Hematocrit 42 % 35-47 Mean Corpuscular Volume 98 um3 High 79-97 Mean Corpuscular Hemoglob 33 pg High 27-31 Mean Corpuscular HGB Cone 33 g/dL 32-36 Redcell Distribution WDTH 13 % 10.5-15 Platelet Count 364 CUMM 150-450 Mean Platelet Volume 8.4 um3 7.4-10.4 Polysegmented Neutrophil 78 % 38-83 Lymphocyte 20 % Low 25-47 Monocyte 1 % 0-13 Eosinophil 1 % 0-6 Absolute Neutrophil Count 10.0 Anisocytosis SLIGHT Drug Screen, Urine 09/28/2009 Amphetamines Urine NONE DETECTED None Detect Outpatient Screen Barbituates Urine Screen NONE DETECTED None Detect Cannabinoid Urine Screen NONE DETECTED None Detect Cocaine Metabolites Urine NONE DETECTED None Detect Urine Opiates NONE DETECTED 66 Urine Drug Screen M-20 08/28/2009 Urine Alcohol Negative mg/dL Cutoff: 30 Urine Ampetamines Negative ng/mL () 67 Urine Barbiturates Negative ng/mL () 68 Urine Benzodiazepines Negative ng/mL () 69 Urine Cocaine Negative ng/mL () 70 Urine Methadone Negative ng/mL () 71 Urine Opiates Reflex* ng/mL () 72 Urine Phencyclidine Negative ng/mL Cutoff: 25 Urine Propoxyphene Negative ng/mL () 73 Urine Tetrahydrocannabinol Negative ng/mL Cutoff: 20 74 Urine Opiates 08/28/2009 Urine Opiates Screen Positive () 75 Urine Codeine By GC/MS Negative ng/mL () 76 Urine Hydrocodone By GC/MS 596 ng/mL () 77 Urine Hydromophone By GC/MS 199 ng/mL () 78 Urine Morphine By GC/MS Negative ng/mL () 79 Urine Oxycodone By GC/MS 666 ng/mL () 80 Urine Opiates Interpretation Positive () 81 CBC With Manual Diff 04/18/2009 White Blood Count 11.4 CUMM High 4.8-10.8 Red Cell Count 4.17 CUMM Low 4.2-5.4 Hemoglobin 14.0 g/dL 12.0-16.0 Hematocrit 41 % 35-47 Mean Corpuscular Volume 99 um3 High 79-97 Mean Corpuscular Hemoglob 34 pg High 27-31 Mean Corpuscular HGB Cone 34 g/dL 32-36 Redcell Distribution WDTH 13 % 10.5-15 Platelet Count 293 CUMM 150-450 Mean Platelet Volume 8.2 um3 7.4-10.4 Polysegmented Neutrophil 69 % 38-83 Band Neutrophil 1 % 0-8 Lymphocyte 16 % Low 25-47 Monocyte 8 % 0-13 Eosenophil 1 % 0-6 Basophil 1 % 0-2 Atypical Lymph 4 % 0-6 Absolute Neutrophil Count 7.9 Anisocytosis SLIGHT Macrocytosis SLIGHT Laboratory test finding 04/18/2009 TSH 1.33 MIU/ML 0.34-5.60 Erythrocyte Sed Rate 14 MM/HR 0-30 Comp Metabolic Panel 04/18/2009 Sodium 131 mmol/L Low 135-145 Potassium 4.3 mmol/L 3.5-5.0 Chloride 99 mmol/L Low 101-111 Co2 (Carbon Dioxide) 27.0 mmol/L 22-32 Anion Gap 5.0 mmol/L 2-11 82 Glucose 100 mg/dL 70-100 83 BUN 14 mg/dL 6-24 Creatinine 1.00 mg/dL 0.50-1.40 One Over Creatinine 1.00 BUN/Creatinine Ratio 14.0 8-20 Calcium 9.2 mg/dL 8.1-9.9 84 Total Protein 6.4 GM/DL 6.2-8.1 Albumin 3.9 GM/DL 3.2-5.2 Globulin 2.5 GM/DL 2-4 Albumin/Globulin Ratio 1.6 1-3 Bilirubin Total 0.7 mg/dL 0.4-1.5 85 Alkaline Phosphatase 77 U/L 30-110 Alt (SGPT) 21 U/L 14-54 Ast (Sgot) 22 U/L 12-42 eGFR Non- 59.7 > 60 eGFR 72.3 > 60 86 1 Acute inflammation: >10.00 2 Result TnIDx:0.09 Called to [id number] at: 13:45:02 by:[id number] Read back by: [id number] [facility] Severe Sepsis and Septic Shock Management Bundle Measure requires all lactic acids initially measuring >2.0 mmol/L be repeated. 4 Because ethnic data is not always readily available, this report includes an eGFR for both -Americans and non- Americans. The National Kidney Disease Education Program (NKDEP) does not endorse the use of the MDRD equation for patients that are not between the ages of 18 and 70, are , have extremes of body size, muscle mass, or nutritional status, or are non- or non-. According to the National Kidney Foundation, irrespective of diagnosis, the stage of the disease is based on the level of kidney function: Stage Description GFR(mL/min/1.73 m(2)) 1 Kidney damage with normal or decreased GFR 90 2 Kidney damage with mild decrease in GFR 60-89 3 Moderate decrease in GFR 30-59 4 Severe decrease in GFR 15-29 5 Kidney failure <15 (or dialysis) 5 Because ethnic data is not always readily available, this report includes an eGFR for both -Americans and non- Americans. The National Kidney Disease Education Program (NKDEP) does not endorse the use of the MDRD equation for patients that are not between the ages of 18 and 70, are , have extremes of body size, muscle mass, or nutritional status, or are non- or non-. According to the National Kidney Foundation, irrespective of diagnosis, the stage of the disease is based on the level of kidney function: Stage Description GFR(mL/min/1.73 m(2)) 1 Kidney damage with normal or decreased GFR 90 2 Kidney damage with mild decrease in GFR 60-89 3 Moderate decrease in GFR 30-59 4 Severe decrease in GFR 15-29 5 Kidney failure <15 (or dialysis) 6 Desirable <150 Borderline high 150-199 High 200-499 Very High >500 7 Desirable <200 Borderline high 200-239 High >239 8 Low <40 Desirable: 40-60 High: >60 9 Desirable: <100 mg/dL Near Optimal: 100-129 mg/dL Borderline High: 130-159 mg/dL High: 160-189 mg/dL Very High: >189 mg/dL 10 >100 to <200 pg/mL: likely compensated congestive heart failure (CHF) 200 to 400 pg/mL: likely moderate CHF >400 pg/mL: likely moderate to severe CHF 11 >100 to <200 pg/mL: likely compensated congestive heart failure (CHF) 200 to 400 pg/mL: likely moderate CHF >400 pg/mL: likely moderate to severe CHF 12 Because ethnic data is not always readily available, this report includes an eGFR for both -Americans and non- Americans. The National Kidney Disease Education Program (NKDEP) does not endorse the use of the MDRD equation for patients that are not between the ages of 18 and 70, are , have extremes of body size, muscle mass, or nutritional status, or are non- or non-. According to the National Kidney Foundation, irrespective of diagnosis, the stage of the disease is based on the level of kidney function: Stage Description GFR(mL/min/1.73 m(2)) 1 Kidney damage with normal or decreased GFR 90 2 Kidney damage with mild decrease in GFR 60-89 3 Moderate decrease in GFR 30-59 4 Severe decrease in GFR 15-29 5 Kidney failure <15 (or dialysis) 13 w/ next INR draw Non-fasting ok 14 Because ethnic data is not always readily available, this report includes an eGFR for both -Americans and non- Americans. The National Kidney Disease Education Program (NKDEP) does not endorse the use of the MDRD equation for patients that are not between the ages of 18 and 70, are , have extremes of body size, muscle mass, or nutritional status, or are non- or non-. According to the National Kidney Foundation, irrespective of diagnosis, the stage of the disease is based on the level of kidney function: Stage Description GFR(mL/min/1.73 m(2)) 1 Kidney damage with normal or decreased GFR 90 2 Kidney damage with mild decrease in GFR 60-89 3 Moderate decrease in GFR 30-59 4 Severe decrease in GFR 15-29 5 Kidney failure <15 (or dialysis) 15 >100 to <200 pg/mL: likely compensated congestive heart failure (CHF) 200 to 400 pg/mL: likely moderate CHF >400 pg/mL: likely moderate to severe CHF 16 Because ethnic data is not always readily available, this report includes an eGFR for both -Americans and non- Americans. The National Kidney Disease Education Program (NKDEP) does not endorse the use of the MDRD equation for patients that are not between the ages of 18 and 70, are , have extremes of body size, muscle mass, or nutritional status, or are non- or non-. According to the National Kidney Foundation, irrespective of diagnosis, the stage of the disease is based on the level of kidney function: Stage Description GFR(mL/min/1.73 m(2)) 1 Kidney damage with normal or decreased GFR 90 2 Kidney damage with mild decrease in GFR 60-89 3 Moderate decrease in GFR 30-59 4 Severe decrease in GFR 15-29 5 Kidney failure <15 (or dialysis) 17 Result TnIDx:0.90 Called to [id number] at: 17:02:22 by:[id number] Read back by: [id number] 99th percentile=0.04 ng/mL Troponin results at [facility] and [facility] are not interchangeable. 18 RA ROOM AIR 19 Reference ranges based on room air. 20 RV ROOMAIR 21 Reference ranges based on room air. 22 PA ROOM AIR 23 Reference ranges based on room air. 24 FEMORAL ARTERY 25 Reference ranges based on room air. 26 Because ethnic data is not always readily available, this report includes an eGFR for both -Americans and non- Americans. The National Kidney Disease Education Program (NKDEP) does not endorse the use of the MDRD equation for patients that are not between the ages of 18 and 70, are , have extremes of body size, muscle mass, or nutritional status, or are non- or non-. According to the National Kidney Foundation, irrespective of diagnosis, the stage of the disease is based on the level of kidney function: Stage Description GFR(mL/min/1.73 m(2)) 1 Kidney damage with normal or decreased GFR 90 2 Kidney damage with mild decrease in GFR 60-89 3 Moderate decrease in GFR 30-59 4 Severe decrease in GFR 15-29 5 Kidney failure <15 (or dialysis) 27 Normal Range 180 to 914 Indeterminate Range 145 to 180 Deficient Range <145 28 Because ethnic data is not always readily available, this report includes an eGFR for both -Americans and non- Americans. The National Kidney Disease Education Program (NKDEP) does not endorse the use of the MDRD equation for patients that are not between the ages of 18 and 70, are , have extremes of body size, muscle mass, or nutritional status, or are non- or non-. According to the National Kidney Foundation, irrespective of diagnosis, the stage of the disease is based on the level of kidney function: Stage Description GFR(mL/min/1.73 m(2)) 1 Kidney damage with normal or decreased GFR 90 2 Kidney damage with mild decrease in GFR 60-89 3 Moderate decrease in GFR 30-59 4 Severe decrease in GFR 15-29 5 Kidney failure <15 (or dialysis) 29 Desirable <150 Borderline high 150-199 High 200-499 Very High >500 30 Desirable <200 Borderline high 200-239 High >239 31 Low <40 Desirable: 40-60 High: >60 32 Desirable: <100 mg/dL Near Optimal: 100-129 mg/dL Borderline High: 130-159 mg/dL High: 160-189 mg/dL Very High: >189 mg/dL 33 Because ethnic data is not always readily available, this report includes an eGFR for both -Americans and non- Americans. The National Kidney Disease Education Program (NKDEP) does not endorse the use of the MDRD equation for patients that are not between the ages of 18 and 70, are , have extremes of body size, muscle mass, or nutritional status, or are non- or non-. According to the National Kidney Foundation, irrespective of diagnosis, the stage of the disease is based on the level of kidney function: Stage Description GFR(mL/min/1.73 m(2)) 1 Kidney damage with normal or decreased GFR 90 2 Kidney damage with mild decrease in GFR 60-89 3 Moderate decrease in GFR 30-59 4 Severe decrease in GFR 15-29 5 Kidney failure <15 (or dialysis) 34 FASTING 35 Because ethnic data is not always readily available, this report includes an eGFR for both -Americans and non- Americans. The National Kidney Disease Education Program (NKDEP) does not endorse the use of the MDRD equation for patients that are not between the ages of 18 and 70, are , have extremes of body size, muscle mass, or nutritional status, or are non- or non-. According to the National Kidney Foundation, irrespective of diagnosis, the stage of the disease is based on the level of kidney function: Stage Description GFR(mL/min/1.73 m(2)) 1 Kidney damage with normal or decreased GFR 90 2 Kidney damage with mild decrease in GFR 60-89 3 Moderate decrease in GFR 30-59 4 Severe decrease in GFR 15-29 5 Kidney failure <15 (or dialysis) 36 Desirable <150 Borderline high 150-199 High 200-499 Very High >500 37 Desirable <200 Borderline high 200-239 High >239 38 Low <40 Desirable: 40-60 High: >60 39 Desirable: <100 mg/dL Near Optimal: 100-129 mg/dL Borderline High: 130-159 mg/dL High: 160-189 mg/dL Very High: >189 mg/dL 40 HDL Interpretation: Undesirable: High Risk: Less than 40 mg/dL Desirable: Low Risk: Greater than 60 mg/dL 41 LDL Interpretation: Low Risk Optimal Level: LDL Less than 100 mg/dL Near or Above Optimal: LDL 100-129 mg/dL Borderline High Risk: LDL 130-159 mg/dL High Risk: LDL 160-189 mg/dL Very High Risk: LDL Greater than 189 mg/dL 42 Because ethnic data is not always readily available, this report includes an eGFR for both -Americans and non- Americans. The National Kidney Disease Education Program (NKDEP) does not endorse the use of the MDRD equation for patients that are not between the ages of 18 and 70, are , have extremes of body size, muscle mass, or nutritional status, or are non- or non-. According to the National Kidney Foundation, irrespective of diagnosis, the stage of the disease is based on the level of kidney function: Stage Description GFR(mL/min/1.73 m(2)) 1 Kidney damage with normal or decreased GFR 90 2 Kidney damage with mild decrease in GFR 60-89 3 Moderate decrease in GFR 30-59 4 Severe decrease in GFR 15-29 5 Kidney failure <15 (or dialysis) 43 CHOLESTEROL INTERPRETATION: Desirable: Less than 200 MG/DL Borderline-High Risk: 200-239 MG/DL High-Risk: 240 MG/DL and over 44 HDL INTERPRETATION: Undesirable: High Risk: Less than 40 MG/DL Desirable: Low Risk: Greater than 60 MG/DL 45 LDL INTERPRETATION: Low Risk Optimal Level: LDL Less than 100 MG/DL Near or Above Optimal: LDL 100-129 MG/DL Borderline High Risk: LDL 130-159 MG/DL High Risk: LDL 160-189 MG/DL Very High Risk: LDL Greater than 189 MG/DL 46 Anion gap measurement may be of limited value in the presence of any alkalosis, especially in a combined acid base disorder. . 47 A metabolite of Naproxen, O-desmethylnaproxen, has been shown to interfere with the [place] method for measuring total bilirubin. Samples from patients who have taken Naproxen have shown spurious elevation in total bilirubin levels. 48 Because ethnic data is not always readily available, this report includes an eGFR for both -Americans and non- Americans. The National Kidney Disease Education Program (NKDEP) does not endorse the use of the MDRD equation for patients that are not between the ages of 18 and 70, are , have extremes of body size, muscle mass, or nutritional status, or are non- or non-. According to the National Kidney Foundation, irrespective of diagnosis, the stage of the disease is based on the level of kidney function: Stage Description GFR(mL/min/1.73 m(2)) 1 Kidney damage with normal or decreased GFR 90 2 Kidney damage with mild decrease in GFR 60-89 3 Moderate decrease in GFR 30-59 4 Severe decrease in GFR 15-29 5 Kidney failure <15 (or dialysis) 49 CHOLESTEROL INTERPRETATION: Desirable: Less than 200 MG/DL Borderline-High Risk: 200-239 MG/DL High-Risk: 240 MG/DL and over 50 HDL INTERPRETATION: Undesirable: High Risk: Less than 40 MG/DL Desirable: Low Risk: Greater than 60 MG/DL 51 LDL INTERPRETATION: Low Risk Optimal Level: LDL Less than 100 MG/DL Near or Above Optimal: LDL 100-129 MG/DL Borderline High Risk: LDL 130-159 MG/DL High Risk: LDL 160-189 MG/DL Very High Risk: LDL Greater than 189 MG/DL [address] 1 53 RUN DATE: 08/02/11 [facility] NMI LIVE PAGE 1 RUN TIME: 932 Specimen Inquiry RUN USER: INTERFACE Name: MARICARMEN VILLARREAL Accgissell#: [id number] Status: REG REF Re07/31/11 Age/Sex: 65/F Unit#: [id number] Location: [facility] : 46 SPEC #: [id number] CLAUDIA: 07/31/11 STATUS: COMP REQ #: [id number] RECD: 07/31/11 [facility] DR: Boo Batres III, MD SOURCE: URINE ENTR: 07/31/11 [facility] SE[facility]: URINE C S QUERIES: MEDENT REQUISITION # [id number] Procedure Result Verified Site > URINE CULTURE SENSITIVI Final ML Organism 1 ESCHERICHIA COLI COLONY COUNT >100,000 ORGANISMS/ML (MANY) 1. ESCHERICHIA COLI RX M.I.C. ------ --------- AMIKACIN S <=2 LEVOFLOXACIN S <=0.12 AMPICILLIN S <=2 CEFAZOLIN S <=4 CEFTRIAXONE S <=1 CIPROFLOXACIN S <=0.25 GENTAMICIN S <=1 TIGECYCLINE S <=0.5 CEFTAZIDIME S <=1 IMIPENEM S <=1 NITROFURANTOIN S 32 TRIMETH-SULFA S <=20 *These antibiotics are not available in the [facility] Formulary. Contact the Microbiology Department for any additional antibiotic reporting. ML - [facility] Permit #[id number] [facility] Dates [facility] [address] DEPARTMENT OF PATHOLOGY, [address] [place], [place] [address] [facility] Permit #[id number] Philip Garner M.D. Director Lora Gipson M.D. Installation & Maintenance Executive 54 FAX RESULTS TO AT FAX NUMBER [phone] 55 >100^>100,000 ORGANISMS/ML (MANY)^CCU 56 Anion gap measurement may be of limited value in the presence of any alkalosis, especially in a combined acid base disorder. . 57 Note change in reference range as of 02/10/08. The change was based on recommendations from the [place] [employer]. 58 Please note change in reference range effective 07 . 59 Because ethnic data is not always readily available, this report includes an eGFR for both -Americans and non- Americans. The National Kidney Disease Education Program (NKDEP) does not endorse the use of the MDRD equation for patients that are not between the ages of 18 and 70, are , have extremes of body size, muscle mass, or nutritional status, or are non- or non-. According to the National Kidney Foundation, irrespective of diagnosis, the stage of the disease is based on the level of kidney function: Stage Description GFR(mL/min/1.73 m(2)) 1 Kidney damage with normal or decreased GFR 90 2 Kidney damage with mild decrease in GFR 60-89 3 Moderate decrease in GFR 30-59 4 Severe decrease in GFR 15-29 5 Kidney failure <15 (or dialysis) 60 SCANT NORMAL URETHRAL OR PERINEAL MIRIAM 61 Anion gap measurement may be of limited value in the presence of any alkalosis, especially in a combined acid base disorder. . 62 Note change in reference range as of 02/10/08. The change was based on recommendations from the [place] [employer]. 63 Please note change in reference range effective 07 . 64 A metabolite of Naproxen, O-desmethylnaproxen, has been shown to interfere with the [place] method for measuring total bilirubin. Samples from patients who have taken Naproxen have shown spurious elevation in total bilirubin levels. 65 Because ethnic data is not always readily available, this report includes an eGFR for both -Americans and non- Americans. The National Kidney Disease Education Program (NKDEP) does not endorse the use of the MDRD equation for patients that are not between the ages of 18 and 70, are , have extremes of body size, muscle mass, or nutritional status, or are non- or non-. According to the National Kidney Foundation, irrespective of diagnosis, the stage of the disease is based on the level of kidney function: Stage Description GFR(mL/min/1.73 m(2)) 1 Kidney damage with normal or decreased GFR 90 2 Kidney damage with mild decrease in GFR 60-89 3 Moderate decrease in GFR 30-59 4 Severe decrease in GFR 15-29 5 Kidney failure <15 (or dialysis) 66 THE URINE SPECIMEN WAS TESTED AT THE LISTED CUTOFFS: DRUG CLASS TEST LEVEL (NG/ML) AMPHETAMINES 300 BARBITUATES 200 COCAINE METABOLITES 300 CANNABINOIDS 25 OPIATES 200 THIS IS A SCREENING PROCEDURE. POSITIVE RESULTS ARE NOT CONFIRMED. SPECIMEN WAS RECEIVED WITHOUT CHAIN OF CUSTODY. RESULTS SHOULD BE USED FOR MEDICAL PURPOSES ONLY. . 67 -- REFERENCE VALUE -- Cutoff: 500 68 -- REFERENCE VALUE -- Cutoff: 200 69 -- REFERENCE VALUE -- Cutoff: 200 70 -- REFERENCE VALUE -- Cutoff: 300 71 -- REFERENCE VALUE -- Cutoff: 300 72 *Drug confirmation ordered by reflex. Refer to confirmation result to follow for the definitive result. -- REFERENCE VALUE -- Cutoff: 300 73 -- REFERENCE VALUE -- Cutoff: 300 74 This report is intended for use in clinical monitoring or management of patients. It is not intended for use in employment-related testing. Test Performed by: [facility] Pathology [address] [place] [address] Rehabilitation Manager: Bakari Quan III, M.D. 75 -- REFERENCE VALUE -- Cutoff: 300 76 -- REFERENCE VALUE -- Cutoff: 100 77 -- REFERENCE VALUE -- Cutoff: 100 78 -- REFERENCE VALUE -- Cutoff: 100 79 -- REFERENCE VALUE -- Cutoff: 100 80 -- REFERENCE VALUE -- Cutoff: 100 81 This report is intended for use in clinical monitoring and management of patients. It is not intended for use in employment-related drug testing. Test Performed by: [facility] [address] [place] [address] Rehabilitation Manager: Bakari Quan III, M.D. 82 Anion gap measurement may be of limited value in the presence of any alkalosis, especially in a combined acid base disorder. . 83 Note change in reference range as of 02/10/08. The change was based on recommendations from the [place] [employer]. 84 Please note change in reference range effective 07 . 85 A metabolite of Naproxen, O-desmethylnaproxen, has been shown to interfere with the [place] method for measuring total bilirubin. Samples from patients who have taken Naproxen have shown spurious elevation in total bilirubin levels. 86 Because ethnic data is not always readily available, this report includes an eGFR for both -Americans and non- Americans. The National Kidney Disease Education Program (NKDEP) does not endorse the use of the MDRD equation for patients that are not between the ages of 18 and 70, are , have extremes of body size, muscle mass, or nutritional status, or are non- or non-. According to the National Kidney Foundation, irrespective of diagnosis, the stage of the disease is based on the level of kidney function: Stage Description GFR(mL/min/1.73 m(2)) 1 Kidney damage with normal or decreased GFR 90 2 Kidney damage with mild decrease in GFR 60-89 3 Moderate decrease in GFR 30-59 4 Severe decrease in GFR 15-29 5 Kidney failure <15 (or dialysis) Procedures Date CPT Code Description Status 09/24/2017 84066 EEG Recording Awake & Asleep Completed 09/24/2017 60913 ECHO Transthorasic Realtime 2D W Doppler & Color Completed Flow Hosp 03/31/2017 98230 ECHO Transthoracic, Real-Time 2D With Doppler And Color Completed Flow 03/31/2017 54658 ECHO Transthoracic, Real-Time 2D With Doppler And Color Completed Flow 02/10/2017 32198 EKG Tracing & Interpretation Completed 2016 00416 ECHO Transthoracic, Real-Time 2D With Doppler And Color Completed Flow 10/14/2016 07599 EKG Tracing & Interpretation Completed 09/22/2016 91815 ECHO Transthorasic Realtime 2D W Doppler & Color Completed Flow Hosp 09/05/2016 88981 RT & lt Cath W/Injx HRT Art&L Ventr Img S&I Completed 08/08/2016 74122 Color Flow Doppler/Interp & Reprt Completed 08/08/2016 53087 Pulse Wave/Continuous-Interp.RPT Completed 08/08/2016 60770 Echocardiography, Transesophageal, Real Time W/Image 2D Completed W/W/O M-M 08/06/2016 18655 ECHO Stress Test Incl Perf Contiuous ekg Monitoring Completed W/Phys Superv 07/28/2016 86531 Spirometry Incl Graphic Record, Timed Expiratory Flow Completed Rate 07/28/2016 90864 Diffusing Capacity Completed 07/22/2016 11015 EKG Tracing & Interpretation Completed 07/22/2016 97818 EKG Tracing & Interpretation Completed 04/30/2016 91708 Chemotherpy Admin Subcutaneous/Im Non-Hormonal Completed Anti-Neoplastic 03/24/201678014 Inject/Drain Joint/Bursa Major Completed 03/11/2016 30419 ECHO Transthoracic, Real-Time 2D With Doppler And Color Completed Flow 03/05/2016 78452 EKG Tracing & Interpretation Completed 10/12/2015 Bone Mineral Density Test Completed 09/25/2015 68495 Chemotherpy Admin Subcutaneous/Im Non-Hormonal Completed Anti-Neoplastic 07/30/2015 93917 EKG Tracing & Interpretation Completed 03/21/2015 58804 Chemotherpy Admin Subcutaneous/Im Non-Hormonal Completed Anti-Neoplastic 03/20/2015 59594 EKG, Interpretation Only Completed 10/30/2014 Mammogram Completed 09/19/2014 86900 Admin Of Inj Completed 01/09/2014 91239 EKG Tracing & Interpretation Completed 09/05/2013 71343 Xray Knee 3 Views Completed 09/05/2013 19586 Rad Exam; Knee, Ap&L Completed 09/05/201352386 Inject/Drain Joint/Bursa Major Completed 08/12/2013 Mammogram Completed 08/12/2013 Bone Mineral Density Test Completed 05/23/2013 32103 EKG Tracing & Interpretation Completed 05/21/2012 69442 EKG Tracing & Interpretation Completed 12/09/2011 59282 Mobile Cardiovascular Telemetry Over 24 HR Up To 30 Completed Days 11/27/2011 98678 Holter Monitor Review (24 hr)dr leger & jesus Completed only 11/19/2011 36075 EKG Tracing & Interpretation Completed 07/03/2011 Mammogram Completed 07/03/2011 Bone Mineral Density Test Completed 06/05/2011 64267 EKG Tracing & Interpretation Completed 02/14/201135710 Inject/Drain Joint/Bursa Major Completed 02/14/2011 18915 Xray Knee 3 Views Completed 02/14/2011 93108 Xray Knee 3 Views Completed 05/21/2010 62968 Nasal Endoscopy, Diagnostic Completed 05/14/2010 Mammogram Completed 05/01/2010 Mammogram Completed 04/09/2010 33770 Mobile Cardiovascular Telemetry Over 24 HR Up To 30 Completed Days 03/04/2010 38303 EKG Tracing & Interpretation Completed 02/14/2010 25242 Mobile Cardiovascular Telemetry Over 24 HR Up To 30 Completed Days 02/13/2010 04930 EKG Tracing & Interpretation Completed 02/12/2010 77376 ECHO Transthoracic, Real-Time 2D With Doppler And Color Completed Flow 01/07/2010 55929 Treadmill Interp/Report Only Completed 01/07/2010 81491 Stress Test Supervsn W/Out I/R Completed 11/19/2006 Bone Mineral Density Test Completed Encounters Type Date Location Provider CPT E/M Dx Office Visit 09/29/2017 [facility], Elian Chaney, 91137 I63.10 8:36a Hospitalists Marissa I48.92 E86.0 Office Visit 09/28/2017 8:34a [facility] Ass[facility] d,lisa Chaney, 74477 I63.10 Hospitalists Marissa I48.92 E86.0 Office Visit 09/27/2017 4:21p [facility] Josh Muñiz, 59278 I48.92 [facility] Marissa, [facility] I63.9 Z95.1 Office Visit 09/27/2017 8:33a [facility] Olive Miguel, 80723 I63.10 Assoc, Hospitalists Marissa I48.92 E86.0 Office Visit 09/26/2017 8:33a [facility] Olive Miguel, 90077 I63.10 Assoc, Hospitalists Marissa I48.92 E86.0 W19.xxxA Office Visit 09/25/2017 8:32a [facility] Olive Miguel, 66615 I63.10 Assoc, Hospitalists Marissa I48.92 E86.0 W19.xxxA Office Visit 09/25/2017 7:00a [facility] Billy Cain, 05056 R29.6 MFam I63.40 Office Visit 09/24/2017 7:00a [facility] Jad Pruett, 86849 R29.6 MFam I63.40 Office Visit 09/24/2017 8:30a [facility] Olive Miguel, 18406 I63.10 Assoc, Hospitalists Marissa I48.92 E86.0 W19.xxxA Office Visit 09/23/2017 8:24a [facility], Olive Miguel, 50933 R27.0 Hospitalists Marissa E86.0 R00.0 W19.xxxA Office Visit 08/24/2017 1:20p [facility] Boo Batres, 91362 R07.89 - Dee Ann D64.9 Office Visit 05/20/2017 9:30a [facility] ELIJAH Mora 40933 Z95.2 I10 E78.5 D64.9 Office Visit 03/23/2017 2:30p [facility] ELIJAH Mora 33426 Z95.2 R53.1 I10 E78.5 D64.9 Office Visit 02/10/2017 3:40p [facility] Caleb Portillo M.D. 32938 Z95.2 I34.0 R06.02 I25.10 I10 E78.5 Office Visit 11/07/2016 9:00a [facility] ELIJAH Mora 27358 Z95.2 R06.02 I25.10 I10 Office Visit 10/21/2016 3:00p [facility] ELIJAH Mora 47402 Z95.2 R06.02 Z79.01 D64.9 Z95.1 Office Visit 10/14/2016 2:40p [facility] Caleb Portillo M.D. 29954 Z95.2 I25.10 D64.9 R06.02 I34.0 I10 Office Visit 10/07/2016 2:00p [facility] Boo Batres, 79530 Z95.2 - Dee Ann I25.10 D64.9 Z79.01 Office Visit 09/11/2016 2:20p [facility] Warren Cunha, 49568 I34.0 M.DLadarius I10 R06.02 I25.10 Office Visit 09/02/2016 11:00a [facility] Warren Cunha, 24693 I34.0 M.DLadarius I10 R06.02 R07.89 G89.4 Office Visit 07/22/2016 8:40a [facility] Caleb Portillo M.D. 63551 I10 I34.0 I10 R06.00 F17.210 I34.0 I95.1 R06.00 Office Visit 07/16/2016 11:15a [facility] Raul Holder M.D. 64568 M25.561 C.M.A. M17.11 M25.571 M65.871 Office Visit 06/30/2016 9:00a [facility] Jad Holden M.D. 48767 M54.5 Of [facility] M47.22 Office Visit 06/26/2016 9:00a [facility] Nurse Visit 16169 I10 Office Visit 06/05/2016 9:00a [facility] ELIJAH Mora 42298 I10 I34.0 M54.2 F41.9 Office Visit 05/08/2016 10:00a [facility] ELIJAH Mora 75240 I34.0 I10 Office Visit 04/30/2016 9:00a [facility] Boo Batres, 83268 M54.2 - Dee Ann Z23 Z92.29 M81.0 Office Visit 04/10/2016 3:30p [facility] ELIJAH Mora 31508 I34.0 I10 Office Visit 03/24/2016 8:15a [facility] M.D. 08546 M75.51 C.M.ALadarius Office Visit 03/05/2016 11:00a [facility] Caleb Portillo, 45539 E78.0 Marissa G89.4 F17.200 I10 I34.0 Office Visit 02/18/2016 4:00p [facility] Boo Batres, 97399 R21 - Dee Ann Office Visit 08/24/2015 2:00p [facility] ELIJAH Mora 18013QIK I10 I95.1 E78.0 Office Visit 07/30/2015 1:20p [facility] Caleb Portillo M.D. 42300 R03.0 I95.1 Office Visit 06/25/2015 2:40p [facility] - Boo Batres, 95901 R12 Wilman Ann Z23 Office Visit 03/19/2015 9:45a [facility] Jad Holden, 33291 M50.12 Of Rosita Ann Office Visit 01/26/2015 11:40a [facility] - Boo Batres, 22027 796.2 Wilman Ann V76.51 Office Visit 02/27/2014 11:20a [facility] Boo Batres, 13164 807.04 - Wilman Ann 733.00 Office Visit 01/09/2014 1:40p [facility] Caleb Portillo, 11659 300.02 MFam 272.0 796.2 458.0 Office Visit 09/05/2013 10:00a [facility] M.D. 24159 716.96 C.M.ALadarius Office Visit 08/24/2013 1:40p [facility] Boo Batres, 48429 733.00 - Wilman Ann Office Visit 05/23/2013 1:40p [facility] Caleb Portillo, 94397 300.02 MFam 272.0 780.4 Office Visit 03/11/2013 10:00a [facility] Boo Batres, 43587 272.0 - Wilman Ann 733.00 300.02 V73.89 V04.81 V03.82 Office Visit 05/21/2012 2:20p [facility] Caleb Portillo M.D. 65391 780.4 272.0 300.02 Office Visit 01/28/2012 1:20p [facility] Boo Batres, 38627 272.0 - Wilman Ann Office Visit 12/11/2011 11:30a [facility] AT Wendie Young, 61770 780.4 [facility] Office Visit 11/19/2011 11:00a [facility] Caleb Poritllo, 78670 272.0 [facility] Ami.Bib 780.4 386.9 786.59 Office Visit 11/13/2011 10:40a [facility] Boo Batres, 17918 272.0 - Wilman Mueller.Bib Office Visit 10/23/2011 10:40a [facility] Boo Batres, 16692 780.4 - Wilman Mueller.Bib 300.02 Office Visit 07/31/2011 3:00p [facility] Boo Batres, 49144 791.9 - [place] Ann 791.9 Office Visit 06/05/2011 2:20p [facility] Caleb JazielLadarius Portillo, 22157 300.02 M.DLadarius 785.1 786.50 Office Visit 03/27/2011 3:40p DO Not Use Client Technical Specialist AT [facility], 87966 733.00 [facility] Ami.Bib V76.10 715.90 V04.81 300.02 785.1 Office Visit 02/14/2011 1:45p [facility] Holder M.D. 31850 716.96 C.M.ALadarius Office Visit 06/04/2010 3:00p [facility] Mindi Salazar, 74067 350.2 [facility] 05/21/2010 1:30p [facility] Mindi Salazar, 47992 350.2 [facility] 473.0 Office Visit 05/13/2010 1:40p DO Not Use Client Technical Specialist AT [facility], 27897 611.71 [facility] Ami.Bib 461.1 472.0 727.1 Office Visit 04/25/2010 1:00p DO Not Use Client Technical Specialist AT [facility], 38584 702.19 Corbettrajan Ann V76.10 Office Visit 03/19/2010 10:20a DO Not Use Client Technical Specialist AT [facility], 08604 465.9 [facility] M.Bib Office Visit 03/15/2010 10:40a DO Not Use Client Technical Specialist AT Boo Saji Batres, 64793 338.4 [facility] M.D. 785.1 Office Visit 03/04/2010 10:30a [facility] [place] [address] 338.4 785.1 424.0 424.1 Office Visit 02/13/2010 11:00a [facility] Caleb Portillo, 91458 786.50 M.D. 785.1 Office Visit 02/06/2010 3:00p DO Not Use Client Technical Specialist AT Boo E. Gisel, 70794 724.2 [facility] M.D. 785.1 Office Visit 01/17/2010 2:00p DO Not Use Client Technical Specialist AT Boo E. Gisel, 57231 785.1 [facility] M.D. 593.9 Office Visit 01/07/2010 10:00a [facility] Caleb Portillo, 01442 786.50 M.DLadarius 785.1 786.09 Office Visit 12/26/2009 9:40a DO Not Use Client Technical Specialist AT Boo William. Gisel, 42014 785.1 Corbettrajan M.D. Office Visit 11/26/2009 10:00a DO Not Use Client Technical Specialist AT Boo E. Gisel, 50449 786.09 Corbettrajan M.D. Office Visit 09/28/2009 10:45a DO Not Use Client Technical Specialist AT Lenora Mendoza M.D. 78297 477.8 [facility] Office Visit 08/28/2009 10:45a DO Not Use Client Technical Specialist AT Lenora Mendoza M.D. 69365 338.4 [place] 338.4 Office Visit 08/07/2009 10:45a DO Not Use Client Technical Specialist AT Lenora Mendoza M.D. 77343 461.9 [facility] 338.4 300.02 461.9 Office Visit 07/20/2009 11:20a DO Not Use Client Technical Specialist AT Radha López, 69155 338.4 Tk M.DLadarius 729.1 473.9 780.52 Office Visit 06/19/2009 8:40a DO Not Use Client Technical Specialist AT ThanRadha ornelas, 18752 845.00 [facility] M.D. Office Visit 05/28/2009 9:40a DO Not Use Client Technical Specialist AT ThanRadha ornelas, 95603 338.4 Corbettrajan Mueller.Bib 461.9 Office Visit 04/25/2009 8:40a DO Not Use Client Technical Specialist AT [facility], 90452 338.4 Corbettrajan M.D. 338.4 Office Visit 04/12/2009 10:20a DO Not Use Client Technical Specialist AT [facility], 23879 729.1 Corbettrajan M.D. 338.4 300.02 780.79 338.4 846.1 Office Visit 03/21/2009 9:20a DO Not Use Client Technical Specialist AT [facility], 67075 338.4 [place] M.D. 729.1 719.46 846.1 729.1 338.4 300.02 Office Visit 02/07/2009 10:00a DO Not Use Client Technical Specialist AT [facility], 11658 338.4 Corbettrajan M.D. 338.4 733.00 724.9 729.1 300.02 719.46 Office Visit 12/07/2008 3:00p DO Not Use Client Technical Specialist AT [facility], 08717 338.4 Corbettrajan M.D. 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
[2017-11-07 17:38] LABS: ABS Basophils 0.1 10^3/ul (0-0.2); ABS Eosinophils 0 10^3/ul (0-0.6); ABS Lymphocytes 1.6 10^3/ul (1.0-4.8); ABS Monocytes 0.8 10^3/ul (0-0.8); ABS Neutrophils 9.3 10^3/ul (1.5-7.7); ABS Nucleated RBC 0 10^3/ul; Eosinophil % 0.4 % (0-6); Hematocrit 36 % (35-47); Hemoglobin 11.6 g/dl (12.0-16.0); Lymphocyte % 13.5 % (25-47); Mean Corpuscular HGB Conc 33 g/dl (31-36); Mean Corpuscular Hemoglobin 30 pg (27-31); Mean Corpuscular Volume 93 fL (80-97); Mean Platelet Volume 9.4 um3 (7.4-10.4); Nucleated Red Blood Cells % 0; Platelet Count 144 10^3/ul (150-450); Red Blood Count 3.85 10^6/ul (4.0-5.4); Red Cell Distribution Width 15 % (10.5-15); White Blood Count 11.8 10^3/ul (3.5-10.8)
--- NOTE | 2017-11-07 17:44 | RAD ---
HISTORY: Weakness COMPARISONS: September 23, 2014 VIEWS: 1: frontal portable view of the chest at 5:30 PM. The patient is obliqued to the right. FINDINGS: LINES AND TUBES: None. CARDIOMEDIASTINAL SILHOUETTE: The cardiomediastinal silhouette is normal for portable technique. PLEURA: The costophrenic angles are sharp. No pleural abnormalities are noted. LUNG PARENCHYMA: The lungs are clear. ABDOMEN: The upper abdomen is clear. There is no subphrenic gas. BONES AND SOFT TISSUES: The patient is status post median sternotomy. IMPRESSION: NO ACTIVE CARDIOPULMONARY DISEASE.
[2017-11-07 17:45] LABS: INR 1.05 (0.77-1.02)
[2017-11-07 17:58] LABS: EGFR Non-African American 57.3 (>60)
[2017-11-07] MEDS ORDERED: NS 0.9% 1000 ML* 1,000 ML IV SCH (19:30)
[2017-11-07 19:56] LABS: Urine Appearance Turbid; Urine Blood Negative (Negative); Urine Color Amber; Urine Ketones Negative (Negative); Urine Protein 2+(100 mg/dL) (Negative); Urine Specific Gravity 1.021 (1.010-1.030); Urine Urobilinogen Negative (Negative)
[2017-11-07] MEDS ORDERED: Diltiazem DRIP* 100 MG/100 ML ADDV.BAG IVPB SCH (20:00)
[2017-11-07] MEDS: Baclofen TAB* 10 MG PO SCH (20:51)
[2017-11-07] MEDS: Metoprolol Tartrate TAB* 50 mg PO SCH (20:51)
[2017-11-07] MEDS: Amitriptyline TAB* 50 MG PO SCH (20:51)
[2017-11-07] MEDS: Atorvastatin* 10 MG TAB PO SCH (20:51)
[2017-11-07] MEDS: Apixaban* 5 MG TAB PO SCH (20:52)
--- NOTE | 2017-11-07 21:13 | HP ---
CC: Boo Batres MD * HISTORY AND PHYSICAL: DATE OF ADMISSION: 11/07/17 PRIMARY CARE PROVIDER: Boo Batres MD ATTENDING PHYSICIAN: Ayad Garrido MD * (dictated by Isis Prasad NP). CHIEF COMPLAINT: Upper chest pain after bumping into furniture at home earlier today. HISTORY OF PRESENT ILLNESS: Ms. Villarreal is a 72-year-old female with past medical history significant for fibromyalgia, anxiety, depression, atrial fibrillation and osteoporosis, who presented to the emergency room by EMS earlier today. The patient states that her granddaughter has not been around, so she has not had access to her medications as her granddaughter insists on dispensing her medications and will not allow her to have access to them or to a medication list to dispense her own medications. She states she has been asking for the list and her granddaughter refuses. She states that earlier today she was walking around her house when she sat down on what she thought was a chair, she was unable to get up, so she called EMS. She reports that when EMS arrived, they noted that she had sat in a wastebasket and she got stuck in the wastebasket. They assisted with getting her back up. They offered to bring her to the emergency room for evaluation and she declined. She states that later in the day she was ambulating with her walker when she bumped into some furniture and reports hitting her chest on the furniture and walker. She adamantly denies falling. She was having some discomfort after this incident and called EMS again, who brought her to the emergency room. She denies any fevers. She reports chills. She denies nausea, vomiting. She denies diarrhea. She reports urinary incontinence at baseline, but denies any urinary symptoms such as urgency, dysuria, or changes in frequency. She denies palpitations. While in the emergency room, the patient was found to be in AFib with RVR. She denied chest pain. She had labs that were remarkable for a mild leukocytosis with a white blood cell count of 11.8. She is slightly anemic, but appears to be near her baseline. She denies any signs of bleeding. She had a troponin of 0.16, which appears to be her baseline troponin. Her creatinine is slightly elevated above her baseline in addition to her BUN. She received a bolus of diltiazem and was started on a diltiazem drip in the emergency room. Her heart rate continued to be around 130s. The hospitalists were asked to evaluate her for admission. PAST MEDICAL HISTORY: 1. Fibromyalgia. 2. Anxiety/depression. 3. Atrial fibrillation. 4. Osteoporosis. PAST SURGICAL HISTORY: 1. Status post right arm ORIF. 2. Status post tonsillectomy. 3. Status post appendectomy. 4. Status post bilateral carpal tunnel release. 5. Status post mitral valve replacement with a porcine valve and a 2-vessel CABG in September 2016. 6. Status post total abdominal hysterectomy with bilateral salpingo- oophorectomy. 7. Status post cholecystectomy. 8. Status post gastric stapling. HOME MEDICATIONS: Include: 1. Torsemide 10 mg oral daily. 2. Diclofenac 1% gel apply topical 3 times daily. 3. Prolia 60 mg subcutaneous every 6 months. 4. Baclofen 10 mg oral twice daily. 5. Aspirin 243 mg oral daily as needed for discomfort. 6. Eliquis 5 mg oral twice daily. 7. Amitriptyline 50 mg oral 3 times daily. 8. Diltiazem CD 120 mg oral twice daily. 9. Pravastatin 40 mg oral daily at bedtime. 10. Omeprazole 20 mg oral daily. 11. Metoprolol tartrate 50 mg oral twice daily. 12. Lidocaine patch 5% transdermal daily. 13. Folic acid 1 mg oral daily. 14. Flonase nasal spray 50 mcg 1 spray to both nares daily. ALLERGIES: No known drug allergies. FAMILY HISTORY: The patient's father passed in his late 70s from a myocardial infarction. He also had diabetes. The patient's 2 sisters had unknown types of cancer. SOCIAL HISTORY: The patient is a former smoker. She reports quitting smoking the last time she was hospitalized in September. Prior to that, she smoked approximately 10 cigarettes a day, up to 1 pack a day for many years beginning at age 17. She denies alcohol or recreational drug use. The patient's brother Cyril and his , Leanna Queen, will be her surrogate decision makers in the event she is unable to make decisions for herself. REVIEW OF SYSTEMS: I performed an 11-point review of systems. All the pertinent positives and negatives are mentioned in the history of present illness. The remaining review of systems are normal. PHYSICAL EXAMINATION GENERAL APPEARANCE: The patient is alert, pleasant and appears to be in no acute distress. VITAL SIGNS: Temperature 98.3, heart rate 137, respiratory rate 24, O2 sat 96% on room air, blood pressure 130/105. HEENT: Normocephalic, atraumatic. Pupils are equal and reactive to light. Extraocular movements are intact. RESPIRATORY: There is no accessory muscle use. The lungs are clear to auscultation. CARDIOVASCULAR: Irregular rate and rhythm, tachycardic. S1 and S2 present. There are no murmurs, rubs, or gallops heard. ABDOMEN: Soft, nontender, nondistended. There are bowel sounds present x4. EXTREMITIES: No lower extremity edema. DP and PT pulses are 2+ and symmetric. MUSCULOSKELETAL: There is no clubbing or cyanosis noted. The patient exhibits good strength in all extremities. NEUROLOGICAL: The patient is alert and oriented x4 with some mild confusion. Cranial nerves II through XII are grossly intact. PSYCHOLOGICAL: The patient is calm and cooperative. SKIN: There are no rashes or abnormalities seen. DIAGNOSTIC STUDIES/LABORATORY DATA: Sodium 142, potassium 3.8, chloride 111, CO2 of 23, BUN 29, creatinine 0.96, glucose 129. White blood cell count 11.8, hemoglobin 11.6, hematocrit 36, platelet count 144,000. INR 1.05, troponin 0.16 , CRP 17.70, BNP 206. EKG shows an atrial fibrillation with RVR and a rate of 134. This EKG is similar to previous EKG from 09/24/17. Chest x-ray from today. Radiologist's impression: No active cardiopulmonary disease. IMPRESSION: Ms. Villarreal is a 72-year-old female with past medical history significant for fibromyalgia, anxiety, depression, atrial fibrillation and osteoporosis, who presents to the emergency room after bumping into furniture at home. She will be admitted as an observation for atrial fibrillation with rapid ventricular response. ASSESSMENT/PLAN: 1. Atrial fibrillation with rapid ventricular response. I suspect she is in atrial fibrillation with rapid ventricular response secondary to not taking her medications for 2 days. She has been started on a diltiazem drip in the ED that we will titrate. I am going to resume her other medications. I am going to put her back on her metoprolol. She will be continued on her Eliquis. There was some concern that she was falling, but the patient adamantly denies falling. She states the 2 calls to EMS today were due to bumping into furniture and getting stuck in a wastebasket. If she becomes difficult to control her heart rate, we will consider asking Cardiology to consult on her. She last had an echo on 09/24/17 showing an EF of 65%, I will hold off on another echo at this time. 2. Elevated troponin. I suspect this is secondary to the Afib with RVR, we will continue to trend her troponin. 3. Acute kidney injury. We will give her hydration overnight and recheck labs in the morning. 4. Fibromyalgia. The patient will be continued on her home amitriptyline, lidocaine patch, and baclofen. 5. Hyperlipidemia. The patient will be continued on statin. 6. Fluids, electrolytes and nutrition. The patient will be on a heart-healthy diet. 7. Code status. Full code. 8. DVT prophylaxis. The patient is at high risk and will be continued on her Eliquis. 9. Disposition. Observation. TIME SPENT: Time for this admission was approximately 60 minutes, greater than half of that was spent with the patient discussing medications, past medical history, the events leading up to her arrival today, and performing a physical examination. The case has been reviewed with the attending, Dr. Garrido, who agrees with the plan of care. Reviewed by SHELDON MILNER 11/11/17 1117 [id number]/[facility] #: [id number] NABILA
[2017-11-07] MEDS: Acetaminophen TAB* 325 MG PO PRN (23:11)
[2017-11-08 07:47] LABS: EGFR Non-African American 50.6 (>60)
[2017-11-08 08:07] LABS: ABS Basophils 0 10^3/ul (0-0.2); ABS Eosinophils 0.1 10^3/ul (0-0.6); ABS Lymphocytes 2.1 10^3/ul (1.0-4.8); ABS Monocytes 0.7 10^3/ul (0-0.8); ABS Neutrophils 7.6 10^3/ul (1.5-7.7); ABS Nucleated RBC 0 10^3/ul; Hematocrit 33 % (35-47); Hemoglobin 10.8 g/dl (12.0-16.0); Lymphocyte % 19.7 % (25-47); Mean Corpuscular HGB Conc 33 g/dl (31-36); Mean Corpuscular Hemoglobin 31 pg (27-31); Mean Corpuscular Volume 94 fL (80-97); Mean Platelet Volume 9.4 um3 (7.4-10.4); Nucleated Red Blood Cells % 0.1; Platelet Count 136 10^3/ul (150-450); Red Blood Count 3.53 10^6/ul (4.0-5.4); Red Cell Distribution Width 16 % (10.5-15); White Blood Count 10.6 10^3/ul (3.5-10.8)
[2017-11-08] MEDS: Omeprazole CAP* 20 MG PO SCH (08:39)
[2017-11-08] MEDS: Apixaban* 5 MG TAB PO SCH ×2 (08:39→19:50)
[2017-11-08] MEDS: Folic Acid TAB* 1 MG PO SCH (08:39)
[2017-11-08] MEDS: Amitriptyline TAB* 50 MG PO SCH ×3 (08:39→19:50)
[2017-11-08] MEDS: Metoprolol Tartrate TAB* 50 mg PO SCH ×2 (08:39→19:50)
[2017-11-08] MEDS: Torsemide TAB* 20 MG PO SCH (08:39)
[2017-11-08] MEDS: Baclofen TAB* 10 MG PO SCH ×2 (08:40→19:50)
[2017-11-08] MEDS: Lidocaine PATCH 5%* 1 PATCH TRANSDERM SCH (08:40)
[2017-11-08] MEDS: cefTRIAXone(*) 1 GM in NS 0.9% 50 ML* 50 ML IVPB SCH (10:02)
[2017-11-08] MEDS: Diltiazem CD CAP* 120 MG PO SCH ×2 (10:04→19:50)
[2017-11-08] MEDS: Fluticasone NASAL SPRAY 50MCG* 16 gm SPRAY BTL BOTH NARES SCH (10:10)
--- NOTE | 2017-11-08 10:16 | ED ---
Dora Wilkins Tenzin, scribed for Inder Lerma MD on 11/07/17 at 1753 . Complex/Multi-Sys Presentation - HPI Summary HPI Summary: Pt is a 72 year old female brought in by ambulance today with complaints of pain in her upper chest after a fall that occur today at her home. She is also complaining of diffuse chest pain, "flutter problem" and swellings in her legs. She reports of losing her balance often at home. She lives alone. The pt has not taken her medications all day yesterday and today. - History Of Current Complaint Chief Complaint: EDFlankPain Time Seen by Provider: 11/07/17 16:35 Hx Obtained From: Patient Onset/Duration: Still Present Timing: Constant Severity Currently: Mild Severity Initially: Mild Associated Signs And Symptoms: Positive: Chest Pain, Other - Positive: "Flutter problem" and swellings in her legs. - Allergies/Home Medications Allergies/Adverse Reactions: Allergies Allergy/AdvReac Type Severity Reaction Status Date / Time No Known Allergies Allergy Verified 09/23/17 12:09 PMH/Surg Hx/FS Hx/Imm Hx Endocrine/Hematology History: Reports: Hx Anemia Denies: Hx Diabetes Cardiovascular History: Reports: Hx Hypercholesterolemia, Hx Hypertension, Hx Syncope, Other Cardiovascular Problems/Disorders - BORN WITH HEART MURMUR, ON MEDS Denies: Hx Pacemaker/ICD Respiratory History: Reports: Hx Seasonal Allergies Denies: Hx Asthma, Hx Chronic Obstructive Pulmonary Disease (COPD), Other Respiratory Problems/Disorders History: Denies: Hx Renal Disease Musculoskeletal History: Reports: Hx Fibromyalgia, Hx Osteoporosis - L HIP;SPINE Sensory History: Reports: Hx Contacts or Glasses, Other Sensory Impairments - fibromyalgia Denies: Hx Hearing Aid Opthamlomology History: Reports: Hx Contacts or Glasses, Other Sensory Impairments - fibromyalgia Neurological History: Reports: Hx Headaches Psychiatric History: Reports: Hx Anxiety - NO MEDICATION FOR AT THIS TIME- STATES HAS BEEN NERVOUS LATELY, Hx Depression - NO MEDICATION FOR AT THIS TIME Denies: Hx Panic Disorder - Cancer History Hx Chemotherapy: No Hx Radiation Therapy: No - Surgical History Surgery Procedure, Year, and Place: right wrist-plate; gastric stapling; tubal ligation,. hysterectomy-[facility]; appendectomy;carpal tunnel right and left,LAP RISA. RIGHT THUMB TENDON REPAIR, - Immunization History Date of Tetanus Vaccine: Yes Date of Influenza Vaccine: Fall 2012 Infectious Disease History: No Infectious Disease History: Denies: Traveled Outside the [place] in Last 30 Days - Family History Known Family History: Positive: Hypertension - Social History Alcohol Use: None Hx Substance Use: Yes Substance Use Type: Reports: None Substance Use Comment - Amount & Last Used: hydrocodone Hx Tobacco Use: Yes Smoking Status (MU): Current Every Day Smoker Type: Cigarettes Amount Used/How Often: 10 cigarettes/day Have You Smoked in the Last Year: Yes Review of Systems Positive: Other - Positive: Flutter problem Positive: Chest Pain Positive: Edema - in her legs All Other Systems Reviewed And Are Negative: Yes Physical Exam - Summary Physical Exam Summary: Appearance: The patient is well-nourished in no acute distress and in no acute pain. Skin: The skin is warm and dry and skin color reflects adequate perfusion. HEENT: The head is normocephalic and atraumatic. The pupils are equal and reactive. The conjunctivae are clear and without drainage. Nares are patent and without drainage. Mouth reveals moist mucous membranes and the throat is without erythema and exudate. The external ears are intact. The ear canals are patent and without drainage. The tympanic membranes are intact. Neck: the neck is supple with full range of motion and non-tender. There are no carotid bruits. There is no neck vein distension. Respiratory: Chest is non-tender. She has crackles third way up to her right and decreased breath sounds on left Cardiovascular: Heart is Tachycardic and irregular rhythm. There is no murmur or rub auscultated. There is no peripheral edema and pulses are symmetrical and equal. Abdomen: The abdomen is soft and non-tender. There are normal bowel sounds heard in all four quadrants and there is no organomegaly palpated. Musculoskeletal: There is no back tenderness noted. Extremities are non-tender with full range of motion. There is good capillary refill. There is no peripheral edema or calf tenderness elicited. Neurological: Patient is alert and oriented to person, place and time. The patient has symmetrical motor strength in all four extremities. Cranial nerves are grossly intact. Deep tendon reflexes are symmetrical and equal in all four extremities. Psychiatric: The patient has an appropriate affect and does not exhibit any anxiety or depression. Triage Information Reviewed: Yes Vital Signs On Initial Exam: Initial Vitals Temp Pulse Resp BP Pulse Ox 98.3 F 127 20 151/101 97 11/07/17 16:32 11/07/17 16:32 11/07/17 16:32 11/07/17 16:32 11/07/17 16:32 Vital Signs Reviewed: Yes Diagnostics - Vital Signs Vital Signs Temp Pulse Resp BP Pulse Ox 11/07/17 16:41 137 21 151/101 97 11/07/17 16:39 138 97 11/07/17 16:32 98.3 F 127 20 151/101 97 - Laboratory Lab Results: Lab Results 11/07/17 11/07/17 11/07/17 Range/Units 17:27 17:27 17:27 WBC 11.8 H (3.5-10.8) 10^3/ul RBC 3.85 L (4.0-5.4) 10^6/ul Hgb 11.6 L (12.0-16.0) g/dl Hct 36 (35-47) % MCV 93 (80-97) fL MCH 30 (27-31) pg MCHC 33 (31-36) g/dl RDW 15 (10.5-15) % Plt Count 144 L (150-450) 10^3/ul MPV 9.4 (7.4-10.4) um3 Neut % (Auto) 78.6 (38-83) % Lymph % (Auto) 13.5 L (25-47) % Maury % (Auto) 6.8 (0-7) % Eos % (Auto) 0.4 (0-6) % Baso % (Auto) 0.7 (0-2) % Absolute Neuts (auto) 9.3 H (1.5-7.7) 10^3/ul Absolute Lymphs (auto) 1.6 (1.0-4.8) 10^3/ul Absolute Monos (auto) 0.8 (0-0.8) 10^3/ul Absolute Eos (auto) 0 (0-0.6) 10^3/ul Absolute Basos (auto) 0.1 (0-0.2) 10^3/ul Absolute Nucleated RBC 0 10^3/ul Nucleated RBC % 0 INR (Anticoag Therapy) 1.05 H (0.77-1.02) Sodium 142 (139-145) mmol/L Potassium 3.8 (3.5-5.0) mmol/L Chloride 111 (101-111) mmol/L Carbon Dioxide 23 (22-32) mmol/L Anion Gap 8 (2-11) mmol/L BUN 29 H (6-24) mg/dL Creatinine 0.96 H (0.51-0.95) mg/dL Est GFR ( Amer) 73.7 (>60) Est GFR (Non-Af Amer) 57.3 (>60) BUN/Creatinine Ratio 30.2 H (8-20) Glucose 129 H (70-100) mg/dL Lactic Acid (0.5-2.0) mmol/L Calcium 8.8 (8.6-10.3) mg/dL Magnesium 2.0 (1.9-2.7) mg/dL Total Bilirubin 0.30 (0.2-1.0) mg/dL AST 18 (13-39) U/L ALT 24 (7-52) U/L Alkaline Phosphatase 104 (34-104) U/L Troponin I 0.16 H* (<0.04) ng/mL C-Reactive Protein 17.70 H (< 5.00) mg/L B-Natriuretic Peptide ( - 100) pg/mL Total Protein 5.8 L (6.4-8.9) g/dL Albumin 3.2 (3.2-5.2) g/dL Globulin 2.6 (2-4) g/dL Albumin/Globulin Ratio 1.2 (1-3) TSH 0.91 (0.34-5.60) mcIU/mL 11/07/17 11/07/17 Range/Units 17:27 17:27 WBC (3.5-10.8) 10^3/ul RBC (4.0-5.4) 10^6/ul Hgb (12.0-16.0) g/dl Hct (35-47) % MCV (80-97) fL MCH (27-31) pg MCHC (31-36) g/dl RDW (10.5-15) % Plt Count (150-450) 10^3/ul MPV (7.4-10.4) um3 Neut % (Auto) (38-83) % Lymph % (Auto) (25-47) % Maury % (Auto) (0-7) % Eos % (Auto) (0-6) % Baso % (Auto) (0-2) % Absolute Neuts (auto) (1.5-7.7) 10^3/ul Absolute Lymphs (auto) (1.0-4.8) 10^3/ul Absolute Monos (auto) (0-0.8) 10^3/ul Absolute Eos (auto) (0-0.6) 10^3/ul Absolute Basos (auto) (0-0.2) 10^3/ul Absolute Nucleated RBC 10^3/ul Nucleated RBC % INR (Anticoag Therapy) (0.77-1.02) Sodium (139-145) mmol/L Potassium (3.5-5.0) mmol/L Chloride (101-111) mmol/L Carbon Dioxide (22-32) mmol/L Anion Gap (2-11) mmol/L BUN (6-24) mg/dL Creatinine (0.51-0.95) mg/dL Est GFR ( Amer) (>60) Est GFR (Non-Af Amer) (>60) BUN/Creatinine Ratio (8-20) Glucose (70-100) mg/dL Lactic Acid 0.7 (0.5-2.0) mmol/L Calcium (8.6-10.3) mg/dL Magnesium (1.9-2.7) mg/dL Total Bilirubin (0.2-1.0) mg/dL AST (13-39) U/L ALT (7-52) U/L Alkaline Phosphatase (34-104) U/L Troponin I (<0.04) ng/mL C-Reactive Protein (< 5.00) mg/L B-Natriuretic Peptide 206 H ( - 100) pg/mL Total Protein (6.4-8.9) g/dL Albumin (3.2-5.2) g/dL Globulin (2-4) g/dL Albumin/Globulin Ratio (1-3) TSH (0.34-5.60) mcIU/mL Result Diagrams: 18 06:20 18 06:20 Lab Statement: Any lab studies that have been ordered have been reviewed, and results considered in the medical decision making process. - Radiology CXR Xray Interpretation: No Acute Changes - Impression: No active cardiopulmonary disease. Dr. Lerma reviewed the report. Radiology Interpretation Completed By: Radiologist - EKG 16:59 Cardiac Rate: Tachycardia - at 134 BPM EKG Rhythm: Atrial Fibrillation - with RVR Complex Multi-Symp Course/Dx Course Of Treatment: After two days of not taking her medications, Ms. Villarreal presented in a-fib with RVR. She was slowed with cardizem and is being admitted to the hospitalist service. - Diagnoses Provider Diagnoses: Atrial flutter with rapid ventricular response - Physician Notifications Discussed Care Of Patient With: Olive Miguel Time Discussed With Above Provider: 18:00 Instructed by Provider To: Admit As Inpatient - Critical Care Time Critical Care Time: 30-74 min Discharge - Sign-Out/Discharge Documenting (check all that apply): Discharge/Admit/Transfer - Discharge Plan Condition: Good Disposition: ADMITTED TO [facility] - Billing Disposition and Condition Condition: GOOD Disposition: HOSP-[facility] [place] The documentation as recorded by the Dora serna Tenzin accurately reflects the service I personally performed and the decisions made by me, Inder Lerma MD.
--- NOTE | 2017-11-08 15:11 | PN ---
Subjective Date of Service: 11/08/17 Interval History: Pt "slid down to the floor again " today, when trying to get OOB with assistance. Has h/o multiple falls. As per notes from PCP pt was referred to [facility] for being forgetfull and falling on 11/02/17. Objective Active Medications: Acetaminophen (Tylenol Tab*) 650 mg PO Q4H PRN PRN Reason: FEVER/PAIN Last Admin: 11/07/17 23:11 Dose: 650 mg Amitriptyline HCl (Elavil Tab*) 50 mg PO TID [facility] Last Admin: 11/08/17 08:39 Dose: 50 mg Apixaban (Eliquis*) 5 mg PO BID [facility] Last Admin: 11/08/17 08:39 Dose: 5 mg Atorvastatin Calcium (Lipitor*) 40 mg PO BEDTIME [facility] PRN Reason: Protocol Last Admin: 11/07/17 20:51 Dose: 40 mg Baclofen (Lioresal Tab*) 10 mg PO BID [facility] Last Admin: 11/08/17 08:40 Dose: 10 mg Diltiazem HCl (Cardizem Cd Cap*) 120 mg PO BID [facility] PRN Reason: Protocol Last Admin: 11/08/17 10:04 Dose: 120 mg Fluticasone Propionate (Flonase Nasal [place] 50mcg*) 1 spray BOTH NARES DAILY [facility] Last Admin: 11/08/17 10:10 Dose: Not Given Folic Acid (Folvite Tab*) 1 mg PO DAILY [facility] Last Admin: 11/08/17 08:39 Dose: 1 mg Diltiazem HCl (Cardizem Iv Advan*) 100 mg in 100 mls @ 10 mls/hr IVPB .PER PARAMETERS [facility]; 10 MG/HR PRN Reason: Protocol Last Admin: 11/08/17 03:09 Dose: 10 mls/hr Ceftriaxone Sodium 1 gm/ (Sodium Chloride) 50 mls @ 200 mls/hr IVPB Q24H [facility] Last Admin: 11/08/17 10:02 Dose: 200 mls/hr Lidocaine (Lidoderm 5% Patch*) 1 patch TRANSDERM DAILY [facility] Last Admin: 11/08/17 08:40 Dose: 1 patch Metoprolol Tartrate (Lopressor Tab*) 50 mg PO BID [facility] Last Admin: 11/08/17 08:39 Dose: 50 mg Omeprazole (Prilosec Cap*) 20 mg PO DAILY@0730 [facility] Last Admin: 11/08/17 08:39 Dose: 20 mg Torsemide (Demadex*) 10 mg PO DAILY [facility] Last Admin: 11/08/17 08:39 Dose: 10 mg Vital Signs - 8 hr 11/08/17 11/08/17 11/08/17 07:16 08:00 08:28 Temperature 98.4 F Pulse Rate 70 Respiratory 18 16 Rate Blood Pressure 152/60 157/85 (mmHg) O2 Sat by Pulse 99 Oximetry 11/08/17 11:29 Temperature 97.8 F Pulse Rate 131 Respiratory 17 Rate Blood Pressure 141/72 (mmHg) O2 Sat by Pulse 100 Oximetry Oxygen Devices in Use Now: None Appearance: 72 yo F in NAD, aAOx3, poor historian Eyes: No Scleral Icterus, PERRLA Ears/Nose/Mouth/Throat: NL Teeth, Lips, Gums, Mucous Membranes Moist Neck: NL Appearance and Movements; NL JVP, Trachea Midline Respiratory: Symmetrical Chest Expansion and Respiratory Effort, Clear to Auscultation Cardiovascular: NL Sounds; No Murmurs; No JVD, - - irrgular Abdominal: NL Sounds; No Tenderness; No Distention, No Hepatosplenomegaly Lymphatic: No Cervical Adenopathy Extremities: No Edema, No Clubbing, Cyanosis Skin: No Rash or Ulcers, No Nodules or Sclerosis Neurological: Alert and Oriented x 3, NL Muscle Strength and Tone Result Diagrams: 11/08/17 06:20 11/08/17 06:20 Additional Lab and Data: Lab Results 11/07/17 11/07/17 11/07/17 Range/Units 17:27 17:27 17:27 WBC 11.8 H (3.5-10.8) 10^3/ul RBC 3.85 L (4.0-5.4) 10^6/ul Hgb 11.6 L (12.0-16.0) g/dl Hct 36 (35-47) % MCV 93 (80-97) fL MCH 30 (27-31) pg MCHC 33 (31-36) g/dl RDW 15 (10.5-15) % Plt Count 144 L (150-450) 10^3/ul MPV 9.4 (7.4-10.4) um3 Neut % (Auto) 78.6 (38-83) % Lymph % (Auto) 13.5 L (25-47) % Carolina % (Auto) 6.8 (0-7) % Eos % (Auto) 0.4 (0-6) % Baso % (Auto) 0.7 (0-2) % Absolute Neuts (auto) 9.3 H (1.5-7.7) 10^3/ul Absolute Lymphs (auto) 1.6 (1.0-4.8) 10^3/ul Absolute Monos (auto) 0.8 (0-0.8) 10^3/ul Absolute Eos (auto) 0 (0-0.6) 10^3/ul Absolute Basos (auto) 0.1 (0-0.2) 10^3/ul Absolute Nucleated RBC 0 10^3/ul Nucleated RBC % 0 INR (Anticoag Therapy) 1.05 H (0.77-1.02) Sodium 142 (139-145) mmol/L Potassium 3.8 (3.5-5.0) mmol/L Chloride 111 (101-111) mmol/L Carbon Dioxide 23 (22-32) mmol/L Anion Gap 8 (2-11) mmol/L BUN 29 H (6-24) mg/dL Creatinine 0.96 H (0.51-0.95) mg/dL Est GFR ( Amer) 73.7 (>60) Est GFR (Non-Af Amer) 57.3 (>60) BUN/Creatinine Ratio 30.2 H (8-20) Glucose 129 H (70-100) mg/dL Lactic Acid (0.5-2.0) mmol/L Calcium 8.8 (8.6-10.3) mg/dL Magnesium 2.0 (1.9-2.7) mg/dL Total Bilirubin 0.30 (0.2-1.0) mg/dL AST 18 (13-39) U/L ALT 24 (7-52) U/L Alkaline Phosphatase 104 (34-104) U/L Troponin I 0.16 H* (<0.04) ng/mL C-Reactive Protein 17.70 H (< 5.00) mg/L B-Natriuretic Peptide ( - 100) pg/mL Total Protein 5.8 L (6.4-8.9) g/dL Albumin 3.2 (3.2-5.2) g/dL Globulin 2.6 (2-4) g/dL Albumin/Globulin Ratio 1.2 (1-3) TSH 0.91 (0.34-5.60) mcIU/mL 11/07/17 11/07/17 Range/Units 17:27 17:27 WBC (3.5-10.8) 10^3/ul RBC (4.0-5.4) 10^6/ul Hgb (12.0-16.0) g/dl Hct (35-47) % MCV (80-97) fL MCH (27-31) pg MCHC (31-36) g/dl RDW (10.5-15) % Plt Count (150-450) 10^3/ul MPV (7.4-10.4) um3 Neut % (Auto) (38-83) % Lymph % (Auto) (25-47) % Carolina % (Auto) (0-7) % Eos % (Auto) (0-6) % Baso % (Auto) (0-2) % Absolute Neuts (auto) (1.5-7.7) 10^3/ul Absolute Lymphs (auto) (1.0-4.8) 10^3/ul Absolute Monos (auto) (0-0.8) 10^3/ul Absolute Eos (auto) (0-0.6) 10^3/ul Absolute Basos (auto) (0-0.2) 10^3/ul Absolute Nucleated RBC 10^3/ul Nucleated RBC % INR (Anticoag Therapy) (0.77-1.02) Sodium (139-145) mmol/L Potassium (3.5-5.0) mmol/L Chloride (101-111) mmol/L Carbon Dioxide (22-32) mmol/L Anion Gap (2-11) mmol/L BUN (6-24) mg/dL Creatinine (0.51-0.95) mg/dL Est GFR ( Amer) (>60) Est GFR (Non-Af Amer) (>60) BUN/Creatinine Ratio (8-20) Glucose (70-100) mg/dL Lactic Acid 0.7 (0.5-2.0) mmol/L Calcium (8.6-10.3) mg/dL Magnesium (1.9-2.7) mg/dL Total Bilirubin (0.2-1.0) mg/dL AST (13-39) U/L ALT (7-52) U/L Alkaline Phosphatase (34-104) U/L Troponin I (<0.04) ng/mL C-Reactive Protein (< 5.00) mg/L B-Natriuretic Peptide 206 H ( - 100) pg/mL Total Protein (6.4-8.9) g/dL Albumin (3.2-5.2) g/dL Globulin (2-4) g/dL Albumin/Globulin Ratio (1-3) TSH (0.34-5.60) mcIU/mL Microbiology and Other Data: Microbiology 11/07/17 19:31 Urine Culture - Preliminary Urine Escherichia Coli Assess/Plan/Problems-Billing Assessment: 71 yo F s/p mitral valve replacement/CABG on 09/16/17, h/o fibromylagia(on chronic narcotics) presented with falls, unsteady gait a fib with RVR, similar to presentation last month when she was noted to be in a. fib with RVR, subacute CVA and was started on eliquis - Patient Problems (1) Atrial flutter with rapid ventricular response Comment: A. firn with RVR. restarted home Cardizem CD 120 mg BID, cont lopressor. cardizem gtt off Echo showed EF 55% and well functioning bioprosthetic mitral valve in 09/2017. (2) Cerebrovascular accident, embolic Comment: subacute, embolic in 09/2017 (3) Troponin I above reference range Comment: due to demand ischemia and rapid A. fib. Pt denies CP (4) UTI (urinary tract infection) Comment: Pt otherwise asymptomatic, denies dysuria, but due to generalized deconditioning and falls will tx x 3 days total. Ceftriaxone started 11/08/17 (5) Unsteady gait Comment: Due to deconditioning , subacute CVA and c spine stenosis C. spine MRI showed moderate stenosis in 09/2017 -d/w Dr. Holden-pt is to f/u with Dr. Holden as outpatient (6) DVT prophylaxis Comment: eliquis
[2017-11-08] MEDS: Acetaminophen TAB* 325 MG PO PRN ×2 (15:18→19:50)
[2017-11-08] MEDS: Atorvastatin* 10 MG TAB PO SCH (19:50)
[2017-11-09] MEDS: Acetaminophen TAB* 325 MG PO PRN ×4 (00:31→20:37)
[2017-11-09 07:26] LABS: ABS Basophils 0 10^3/ul (0-0.2); ABS Eosinophils 0.2 10^3/ul (0-0.6); ABS Lymphocytes 2.3 10^3/ul (1.0-4.8); ABS Monocytes 0.7 10^3/ul (0-0.8); ABS Neutrophils 8.5 10^3/ul (1.5-7.7); ABS Nucleated RBC 0 10^3/ul; Eosinophil % 1.3 % (0-6); Hematocrit 37 % (35-47); Lymphocyte % 19.6 % (25-47); Mean Corpuscular HGB Conc 32 g/dl (31-36); Mean Corpuscular Hemoglobin 30 pg (27-31); Mean Corpuscular Volume 93 fL (80-97); Mean Platelet Volume 9.7 um3 (7.4-10.4); Nucleated Red Blood Cells % 0.1; Platelet Count 144 10^3/ul (150-450); Red Cell Distribution Width 15 % (10.5-15); White Blood Count 11.7 10^3/ul (3.5-10.8)
[2017-11-09 07:30] LABS: EGFR Non-African American 60.9 (>60)
[2017-11-09] MEDS: Folic Acid TAB* 1 MG PO SCH (07:50)
[2017-11-09] MEDS: Torsemide TAB* 20 MG PO SCH (07:50)
[2017-11-09] MEDS: Baclofen TAB* 10 MG PO SCH ×2 (07:50→20:37)
[2017-11-09] MEDS: Amitriptyline TAB* 50 MG PO SCH ×3 (07:50→20:37)
[2017-11-09] MEDS: Apixaban* 5 MG TAB PO SCH ×2 (07:50→20:37)
[2017-11-09] MEDS: Omeprazole CAP* 20 MG PO SCH (07:50)
[2017-11-09] MEDS: Metoprolol Tartrate TAB* 50 mg PO SCH ×2 (07:51→20:37)
[2017-11-09] MEDS: Diltiazem CD CAP* 120 MG PO SCH (07:51)
[2017-11-09] MEDS: Lidocaine PATCH 5%* 1 PATCH TRANSDERM SCH (07:52)
[2017-11-09] MEDS ORDERED: Diltiazem CD CAP* 180 MG PO SCH (09:00)
[2017-11-09] MEDS: Fluticasone NASAL SPRAY 50MCG* 16 gm SPRAY BTL BOTH NARES SCH (11:40)
[2017-11-09] MEDS: cefTRIAXone(*) 1 GM in NS 0.9% 50 ML* 50 ML IVPB SCH (12:08)
[2017-11-09] MEDS ORDERED: Diltiazem CD CAP* 240 MG PO ONE (13:00)
[2017-11-09] MEDS ORDERED: Metoprolol Tartrate IV* 1 MG/ML 5 ML VIAL IV PRN (13:45)
--- NOTE | 2017-11-09 15:58 | PN ---
Subjective Date of Service: 11/09/17 Interval History: Pt today refuses to got to STR. Acknowledges that she fell yesterday when assisted in her room, but doesn't understand the consequences of falling when on anticoagulation. Keeps on repeating that she plans to go to [facility] for water tx but has no plans as to how to get there. Agrees on psychiatry eval for competency Objective Active Medications: Acetaminophen (Tylenol Tab*) 650 mg PO Q4H PRN PRN Reason: FEVER/PAIN Last Admin: 11/09/17 12:08 Dose: 650 mg Amitriptyline HCl (Elavil Tab*) 50 mg PO TID [facility] Last Admin: 11/09/17 13:31 Dose: 50 mg Apixaban (Eliquis*) 5 mg PO BID [facility] Last Admin: 11/09/17 07:50 Dose: 5 mg Atorvastatin Calcium (Lipitor*) 40 mg PO BEDTIME [facility] PRN Reason: Protocol Last Admin: 11/08/17 19:50 Dose: 40 mg Baclofen (Lioresal Tab*) 10 mg PO BID [facility] Last Admin: 11/09/17 07:50 Dose: 10 mg Diltiazem HCl (Cardizem Cd Cap*) 360 mg PO Q24HR [facility] Fluticasone Propionate (Flonase Nasal [place] 50mcg*) 1 spray BOTH NARES DAILY [facility] Last Admin: 11/09/17 11:40 Dose: Not Given Folic Acid (Folvite Tab*) 1 mg PO DAILY [facility] Last Admin: 11/09/17 07:50 Dose: 1 mg Ceftriaxone Sodium 1 gm/ (Sodium Chloride) 50 mls @ 200 mls/hr IVPB Q24H [facility] Last Admin: 11/09/17 12:08 Dose: 200 mls/hr Lidocaine (Lidoderm 5% Patch*) 1 patch TRANSDERM DAILY [facility] Last Admin: 11/09/17 07:52 Dose: 1 patch Metoprolol Tartrate (Lopressor Tab*) 50 mg PO BID [facility] Last Admin: 11/09/17 07:51 Dose: 50 mg Metoprolol Tartrate (Lopressor Iv*) 5 mg IV Q6H PRN PRN Reason: BLOOD PRESSURE Omeprazole (Prilosec Cap*) 20 mg PO DAILY@0730 [facility] Last Admin: 11/09/17 07:50 Dose: 20 mg Torsemide (Demadex*) 10 mg PO DAILY [facility] Last Admin: 11/09/17 07:50 Dose: 10 mg Vital Signs - 8 hr 11/09/17 11/09/17 07:57 11:26 Temperature 97.6 F Pulse Rate 81 Respiratory 22 20 Rate Blood Pressure 159/55 (mmHg) O2 Sat by Pulse 100 Oximetry Oxygen Devices in Use Now: None Appearance: 72 yo F in nAD, AAOx3, poor historian Eyes: No Scleral Icterus, PERRLA Ears/Nose/Mouth/Throat: NL Teeth, Lips, Gums, Mucous Membranes Moist Neck: NL Appearance and Movements; NL JVP, Trachea Midline Respiratory: Symmetrical Chest Expansion and Respiratory Effort Cardiovascular: NL Sounds; No Murmurs; No JVD, - - irregular, tachy Abdominal: NL Sounds; No Tenderness; No Distention, No Hepatosplenomegaly Lymphatic: No Cervical Adenopathy Extremities: No Edema, No Clubbing, Cyanosis Skin: No Rash or Ulcers, No Nodules or Sclerosis Neurological: Alert and Oriented x 3, NL Muscle Strength and Tone Result Diagrams: 11/09/17 06:44 11/09/17 09:12 Additional Lab and Data: Lab Results 11/07/17 11/07/17 11/07/17 Range/Units 17:27 17:27 17:27 WBC 11.8 H (3.5-10.8) 10^3/ul RBC 3.85 L (4.0-5.4) 10^6/ul Hgb 11.6 L (12.0-16.0) g/dl Hct 36 (35-47) % MCV 93 (80-97) fL MCH 30 (27-31) pg MCHC 33 (31-36) g/dl RDW 15 (10.5-15) % Plt Count 144 L (150-450) 10^3/ul MPV 9.4 (7.4-10.4) um3 Neut % (Auto) 78.6 (38-83) % Lymph % (Auto) 13.5 L (25-47) % Rains % (Auto) 6.8 (0-7) % Eos % (Auto) 0.4 (0-6) % Baso % (Auto) 0.7 (0-2) % Absolute Neuts (auto) 9.3 H (1.5-7.7) 10^3/ul Absolute Lymphs (auto) 1.6 (1.0-4.8) 10^3/ul Absolute Monos (auto) 0.8 (0-0.8) 10^3/ul Absolute Eos (auto) 0 (0-0.6) 10^3/ul Absolute Basos (auto) 0.1 (0-0.2) 10^3/ul Absolute Nucleated RBC 0 10^3/ul Nucleated RBC % 0 INR (Anticoag Therapy) 1.05 H (0.77-1.02) Sodium 142 (139-145) mmol/L Potassium 3.8 (3.5-5.0) mmol/L Chloride 111 (101-111) mmol/L Carbon Dioxide 23 (22-32) mmol/L Anion Gap 8 (2-11) mmol/L BUN 29 H (6-24) mg/dL Creatinine 0.96 H (0.51-0.95) mg/dL Est GFR ( Amer) 73.7 (>60) Est GFR (Non-Af Amer) 57.3 (>60) BUN/Creatinine Ratio 30.2 H (8-20) Glucose 129 H (70-100) mg/dL Lactic Acid (0.5-2.0) mmol/L Calcium 8.8 (8.6-10.3) mg/dL Magnesium 2.0 (1.9-2.7) mg/dL Total Bilirubin 0.30 (0.2-1.0) mg/dL AST 18 (13-39) U/L ALT 24 (7-52) U/L Alkaline Phosphatase 104 (34-104) U/L Troponin I 0.16 H* (<0.04) ng/mL C-Reactive Protein 17.70 H (< 5.00) mg/L B-Natriuretic Peptide ( - 100) pg/mL Total Protein 5.8 L (6.4-8.9) g/dL Albumin 3.2 (3.2-5.2) g/dL Globulin 2.6 (2-4) g/dL Albumin/Globulin Ratio 1.2 (1-3) TSH 0.91 (0.34-5.60) mcIU/mL 11/07/17 11/07/17 Range/Units 17:27 17:27 WBC (3.5-10.8) 10^3/ul RBC (4.0-5.4) 10^6/ul Hgb (12.0-16.0) g/dl Hct (35-47) % MCV (80-97) fL MCH (27-31) pg MCHC (31-36) g/dl RDW (10.5-15) % Plt Count (150-450) 10^3/ul MPV (7.4-10.4) um3 Neut % (Auto) (38-83) % Lymph % (Auto) (25-47) % Rains % (Auto) (0-7) % Eos % (Auto) (0-6) % Baso % (Auto) (0-2) % Absolute Neuts (auto) (1.5-7.7) 10^3/ul Absolute Lymphs (auto) (1.0-4.8) 10^3/ul Absolute Monos (auto) (0-0.8) 10^3/ul Absolute Eos (auto) (0-0.6) 10^3/ul Absolute Basos (auto) (0-0.2) 10^3/ul Absolute Nucleated RBC 10^3/ul Nucleated RBC % INR (Anticoag Therapy) (0.77-1.02) Sodium (139-145) mmol/L Potassium (3.5-5.0) mmol/L Chloride (101-111) mmol/L Carbon Dioxide (22-32) mmol/L Anion Gap (2-11) mmol/L BUN (6-24) mg/dL Creatinine (0.51-0.95) mg/dL Est GFR ( Amer) (>60) Est GFR (Non-Af Amer) (>60) BUN/Creatinine Ratio (8-20) Glucose (70-100) mg/dL Lactic Acid 0.7 (0.5-2.0) mmol/L Calcium (8.6-10.3) mg/dL Magnesium (1.9-2.7) mg/dL Total Bilirubin (0.2-1.0) mg/dL AST (13-39) U/L ALT (7-52) U/L Alkaline Phosphatase (34-104) U/L Troponin I (<0.04) ng/mL C-Reactive Protein (< 5.00) mg/L B-Natriuretic Peptide 206 H ( - 100) pg/mL Total Protein (6.4-8.9) g/dL Albumin (3.2-5.2) g/dL Globulin (2-4) g/dL Albumin/Globulin Ratio (1-3) TSH (0.34-5.60) mcIU/mL Microbiology and Other Data: Microbiology 11/07/17 19:31 Urine Culture - Preliminary Urine Escherichia Coli Assess/Plan/Problems-Billing Assessment: 71 yo F s/p mitral valve replacement/CABG on 09/16/16, h/o fibromylagia(on chronic narcotics, that were tapered to off in 09/2017) presented with falls, unsteady gait a fib with RVR, similar to presentation last month when she was noted to be in a. fib with RVR, subacute CVA and was started on eliquis - Patient Problems (1) Atrial flutter with rapid ventricular response Comment: A. fib with RVR. restarted home Cardizem CD 120 mg BID, but HR still elevated. Today started on Cardizem CD 360 mg daily. Cont lopressor. cardizem gtt off Echo showed EF 55% and well functioning bioprosthetic mitral valve in 09/2017. (2) Cerebrovascular accident, embolic Comment: subacute, embolic in 09/2017 (3) Troponin I above reference range Comment: due to demand ischemia and rapid A. fib. Pt denies CP (4) UTI (urinary tract infection) Comment: Pt otherwise asymptomatic, denies dysuria, but due to generalized deconditioning and falls will tx x 3 days total. Ceftriaxone started 11/08/17 (5) Unsteady gait Comment: Due to deconditioning , subacute CVA and c spine stenosis C. spine MRI showed moderate stenosis in 09/2017 -d/w Dr. Holden-pt is to f/u with Dr. Holden as outpatient (6) DVT prophylaxis Comment: eliquis Status and Disposition: Inpatient, pt is unsafe to go home, but refuses STR. Psychiatry consult for capacity to refuse placement requested.
[2017-11-09] MEDS: Atorvastatin* 10 MG TAB PO SCH (20:37)
[2017-11-10] MEDS: Acetaminophen TAB* 325 MG PO PRN ×5 (00:23→21:36)
[2017-11-10 07:03] LABS: ABS Basophils 0.1 10^3/ul (0-0.2); ABS Eosinophils 0.1 10^3/ul (0-0.6); ABS Lymphocytes 2.1 10^3/ul (1.0-4.8); ABS Monocytes 0.7 10^3/ul (0-0.8); ABS Neutrophils 9.5 10^3/ul (1.5-7.7); ABS Nucleated RBC 0 10^3/ul; Hematocrit 37 % (35-47); Hemoglobin 12.2 g/dl (12.0-16.0); Lymphocyte % 16.4 % (25-47); Mean Corpuscular HGB Conc 33 g/dl (31-36); Mean Corpuscular Hemoglobin 31 pg (27-31); Mean Corpuscular Volume 93 fL (80-97); Mean Platelet Volume 9.5 um3 (7.4-10.4); Nucleated Red Blood Cells % 0; Platelet Count 153 10^3/ul (150-450); Red Blood Count 3.99 10^6/ul (4.0-5.4); Red Cell Distribution Width 15 % (10.5-15); White Blood Count 12.5 10^3/ul (3.5-10.8)
[2017-11-10 07:18] LABS: EGFR Non-African American 73.9 (>60)
[2017-11-10] MEDS: Omeprazole CAP* 20 MG PO SCH (09:36)
[2017-11-10] MEDS: Diltiazem CD CAP* 180 MG PO SCH (09:37)
[2017-11-10] MEDS: Folic Acid TAB* 1 MG PO SCH (09:37)
[2017-11-10] MEDS: Metoprolol Tartrate TAB* 50 mg PO SCH ×2 (09:37→21:36)
[2017-11-10] MEDS: Amitriptyline TAB* 50 MG PO SCH ×3 (09:37→21:36)
[2017-11-10] MEDS: Baclofen TAB* 10 MG PO SCH ×2 (09:37→21:36)
[2017-11-10] MEDS: Apixaban* 5 MG TAB PO SCH ×2 (09:38→21:36)
[2017-11-10] MEDS: Lidocaine PATCH 5%* 1 PATCH TRANSDERM SCH (09:38)
[2017-11-10] MEDS: Torsemide TAB* 20 MG PO SCH (09:39)
[2017-11-10] MEDS: Fluticasone NASAL SPRAY 50MCG* 16 gm SPRAY BTL BOTH NARES SCH (09:45)
[2017-11-10] MEDS: cefTRIAXone(*) 1 GM in NS 0.9% 50 ML* 50 ML IVPB SCH (11:29)
--- NOTE | 2017-11-10 14:09 | CONSULT ---
Consult Consult: Consult for Medical Decision Making Capacity: S: Psychiatry is asked to evaluate capacity in this 72 y.o. , white female with a history of Afib, recent stroke (10/07) and gait instability, currently admitted to the Hospitalist service on . I spoke with the admitting physician, Ilana Miguel, who reports that Barbara lives independently and was admitted after activating her medic-alert necklace when she could not lift herself from her commode at home. She was subsequently discovered to be in atrial flutter and was admitted to telemetry. Since admission she had an observed fall in the bathroom of her room. She is now medically cleared for discharge but sub-acute rehab is indicated, however, the patient is refusing this, insisting that she can continue to function independently at home. A particular concern is that the patient is on anticoagulant therapy, increasing the risk for intracranial hemorrhage and following a fall. On exam the patient is slightly confused, mistaking me for a pain specialist doctor, but calm and cooperative throughout. It takes her some time but she is able to state her diagnosis "flutter." She knows that the primary team would like her to go to rehab but she doesn't feel this is necessary. "I've always lived alone." When asked about the risks, again, it takes her some time, but she ultimately admits that she could fall, particularly when getting in or out of the shower and that this could kill her. "I am on blood thinners you know." She is able to voice risk mitigation strategies such as increased visitation from her daughter and flame cutting supervisor and is welcome to increasing community supports such as visiting nursing and at-home PT/OT. She also has a medic- alert necklace. O: the patient is calm, cooperative and euthymic; she scores 24/30 on a MMSE, missing points for day, season, facility name, floor and attention. Delayed recall was intact. A/P: Capacity: the patient is deemed to have capacity. She can reproduce her diagnosis, the recommended treatment and the risks of refusing said treatment. Psychiatry is signing off but can be reconsulted in the event of any change in the patient's presentation. The results of the evaluation were discussed with the patient, her nurse on (Diogo) and the current attending physician, Dr. Garibay.
--- NOTE | 2017-11-10 15:18 | PN ---
Subjective Date of Service: 11/10/17 Interval History: Back pain otherwise no complaints Notes her daughter will resume assisting in her care (instead of her granddaughter) Objective Active Medications: Acetaminophen (Tylenol Tab*) 650 mg PO Q4H PRN PRN Reason: FEVER/PAIN Last Admin: 11/10/17 14:40 Dose: 650 mg Amitriptyline HCl (Elavil Tab*) 50 mg PO TID [facility] Last Admin: 11/10/17 14:40 Dose: 50 mg Apixaban (Eliquis*) 5 mg PO BID [facility] Last Admin: 11/10/17 09:38 Dose: 5 mg Atorvastatin Calcium (Lipitor*) 40 mg PO BEDTIME [facility] PRN Reason: Protocol Last Admin: 11/09/17 20:37 Dose: 40 mg Baclofen (Lioresal Tab*) 10 mg PO BID [facility] Last Admin: 11/10/17 09:37 Dose: 10 mg Diltiazem HCl (Cardizem Cd Cap*) 360 mg PO Q24HR [facility] Last Admin: 11/10/17 09:37 Dose: 360 mg Fluticasone Propionate (Flonase Nasal [place] 50mcg*) 1 spray BOTH NARES DAILY [facility] Last Admin: 11/10/17 09:45 Dose: Not Given Folic Acid (Folvite Tab*) 1 mg PO DAILY [facility] Last Admin: 11/10/17 09:37 Dose: 1 mg Ceftriaxone Sodium 1 gm/ (Sodium Chloride) 50 mls @ 200 mls/hr IVPB Q24H [facility] Last Admin: 11/10/17 11:29 Dose: 200 mls/hr Lidocaine (Lidoderm 5% Patch*) 1 patch TRANSDERM DAILY [facility] Last Admin: 11/10/17 09:38 Dose: 1 patch Metoprolol Tartrate (Lopressor Tab*) 50 mg PO BID [facility] Last Admin: 11/10/17 09:37 Dose: 50 mg Metoprolol Tartrate (Lopressor Iv*) 5 mg IV Q6H PRN PRN Reason: BLOOD PRESSURE Omeprazole (Prilosec Cap*) 20 mg PO DAILY@0730 [facility] Last Admin: 11/10/17 09:36 Dose: 20 mg Torsemide (Demadex*) 10 mg PO DAILY [facility] Last Admin: 11/10/17 09:39 Dose: 10 mg Oxygen Devices in Use Now: None Appearance: thin, NAD Eyes: No Scleral Icterus, PERRLA Ears/Nose/Mouth/Throat: Clear Oropharnyx, Mucous Membranes Moist Neck: NL Appearance and Movements; NL JVP, Trachea Midline Respiratory: Symmetrical Chest Expansion and Respiratory Effort, Clear to Auscultation Cardiovascular: RRR, - - 2/6 DONNIE Abdominal: NL Sounds; No Tenderness; No Distention Lymphatic: No Cervical Adenopathy Extremities: No Edema Neurological: Alert and Oriented x 3 Result Diagrams: 11/10/17 06:50 11/10/17 06:50 Additional Lab and Data: Lab Results 11/07/17 11/07/17 11/07/17 Range/Units 17:27 17:27 17:27 WBC 11.8 H (3.5-10.8) 10^3/ul RBC 3.85 L (4.0-5.4) 10^6/ul Hgb 11.6 L (12.0-16.0) g/dl Hct 36 (35-47) % MCV 93 (80-97) fL MCH 30 (27-31) pg MCHC 33 (31-36) g/dl RDW 15 (10.5-15) % Plt Count 144 L (150-450) 10^3/ul MPV 9.4 (7.4-10.4) um3 Neut % (Auto) 78.6 (38-83) % Lymph % (Auto) 13.5 L (25-47) % [place] % (Auto) 6.8 (0-7) % Eos % (Auto) 0.4 (0-6) % Baso % (Auto) 0.7 (0-2) % Absolute Neuts (auto) 9.3 H (1.5-7.7) 10^3/ul Absolute Lymphs (auto) 1.6 (1.0-4.8) 10^3/ul Absolute Monos (auto) 0.8 (0-0.8) 10^3/ul Absolute Eos (auto) 0 (0-0.6) 10^3/ul Absolute Basos (auto) 0.1 (0-0.2) 10^3/ul Absolute Nucleated RBC 0 10^3/ul Nucleated RBC % 0 INR (Anticoag Therapy) 1.05 H (0.77-1.02) Sodium 142 (139-145) mmol/L Potassium 3.8 (3.5-5.0) mmol/L Chloride 111 (101-111) mmol/L Carbon Dioxide 23 (22-32) mmol/L Anion Gap 8 (2-11) mmol/L BUN 29 H (6-24) mg/dL Creatinine 0.96 H (0.51-0.95) mg/dL Est GFR ( Amer) 73.7 (>60) Est GFR (Non-Af Amer) 57.3 (>60) BUN/Creatinine Ratio 30.2 H (8-20) Glucose 129 H (70-100) mg/dL Lactic Acid (0.5-2.0) mmol/L Calcium 8.8 (8.6-10.3) mg/dL Magnesium 2.0 (1.9-2.7) mg/dL Total Bilirubin 0.30 (0.2-1.0) mg/dL AST 18 (13-39) U/L ALT 24 (7-52) U/L Alkaline Phosphatase 104 (34-104) U/L Troponin I 0.16 H* (<0.04) ng/mL C-Reactive Protein 17.70 H (< 5.00) mg/L B-Natriuretic Peptide ( - 100) pg/mL Total Protein 5.8 L (6.4-8.9) g/dL Albumin 3.2 (3.2-5.2) g/dL Globulin 2.6 (2-4) g/dL Albumin/Globulin Ratio 1.2 (1-3) TSH 0.91 (0.34-5.60) mcIU/mL 11/07/17 11/07/17 Range/Units 17:27 17:27 WBC (3.5-10.8) 10^3/ul RBC (4.0-5.4) 10^6/ul Hgb (12.0-16.0) g/dl Hct (35-47) % MCV (80-97) fL MCH (27-31) pg MCHC (31-36) g/dl RDW (10.5-15) % Plt Count (150-450) 10^3/ul MPV (7.4-10.4) um3 Neut % (Auto) (38-83) % Lymph % (Auto) (25-47) % [place] % (Auto) (0-7) % Eos % (Auto) (0-6) % Baso % (Auto) (0-2) % Absolute Neuts (auto) (1.5-7.7) 10^3/ul Absolute Lymphs (auto) (1.0-4.8) 10^3/ul Absolute Monos (auto) (0-0.8) 10^3/ul Absolute Eos (auto) (0-0.6) 10^3/ul Absolute Basos (auto) (0-0.2) 10^3/ul Absolute Nucleated RBC 10^3/ul Nucleated RBC % INR (Anticoag Therapy) (0.77-1.02) Sodium (139-145) mmol/L Potassium (3.5-5.0) mmol/L Chloride (101-111) mmol/L Carbon Dioxide (22-32) mmol/L Anion Gap (2-11) mmol/L BUN (6-24) mg/dL Creatinine (0.51-0.95) mg/dL Est GFR ( Amer) (>60) Est GFR (Non-Af Amer) (>60) BUN/Creatinine Ratio (8-20) Glucose (70-100) mg/dL Lactic Acid 0.7 (0.5-2.0) mmol/L Calcium (8.6-10.3) mg/dL Magnesium (1.9-2.7) mg/dL Total Bilirubin (0.2-1.0) mg/dL AST (13-39) U/L ALT (7-52) U/L Alkaline Phosphatase (34-104) U/L Troponin I (<0.04) ng/mL C-Reactive Protein (< 5.00) mg/L B-Natriuretic Peptide 206 H ( - 100) pg/mL Total Protein (6.4-8.9) g/dL Albumin (3.2-5.2) g/dL Globulin (2-4) g/dL Albumin/Globulin Ratio (1-3) TSH (0.34-5.60) mcIU/mL Microbiology and Other Data: Microbiology 11/07/17 19:31 Urine Culture - Preliminary Urine Escherichia Coli Assess/Plan/Problems-Billing Assessment: 71 yo F s/p mitral valve replacement/CABG on 09/16/16, h/o fibromylagia(on chronic narcotics, that were tapered to off in 09/2017) presented with falls, unsteady gait a fib with RVR, similar to presentation last month when she was noted to be in a. fib with RVR, subacute CVA and was started on eliquis - Patient Problems (1) Atrial flutter with rapid ventricular response Comment: A. fib with RVR on presentation Cardizem CD 360 mg daily and lopressor. Echo showed EF 55% and well functioning bioprosthetic mitral valve in 09/2017. (2) Cerebrovascular accident, embolic Comment: subacute, embolic in 09/2017 (3) Troponin I above reference range Comment: due to demand ischemia and rapid A. fib. Pt denies CP (4) Unsteady gait Comment: Due to deconditioning , subacute CVA and c spine stenosis C. spine MRI showed moderate stenosis in 09/2017 -d/w Dr. Holden-pt is to f/u with Dr. Holden as outpatient (5) UTI (urinary tract infection) Comment: Pt otherwise asymptomatic, denies dysuria, but due to generalized deconditioning and falls will tx x 3 days total. Ceftriaxone started 11/08/17 (6) DVT prophylaxis Comment: eliquis Status and Disposition: Inpatient, less safe to go home but refuses STR and has capacity to make own decisions. Meds to be delivered to bedside
[2017-11-10] MEDS: Atorvastatin* 10 MG TAB PO SCH (21:35)
[2017-11-11] MEDS: Acetaminophen TAB* 325 MG PO PRN ×2 (06:17→11:58)
[2017-11-11] MEDS: Omeprazole CAP* 20 MG PO SCH (07:56)
[2017-11-11] MEDS: Folic Acid TAB* 1 MG PO SCH (07:57)
[2017-11-11] MEDS: Diltiazem CD CAP* 180 MG PO SCH (07:57)
[2017-11-11] MEDS: Amitriptyline TAB* 50 MG PO SCH (07:57)
[2017-11-11] MEDS: Baclofen TAB* 10 MG PO SCH (07:57)
[2017-11-11] MEDS: Lidocaine PATCH 5%* 1 PATCH TRANSDERM SCH (07:57)
[2017-11-11] MEDS: Apixaban* 5 MG TAB PO SCH (07:57)
[2017-11-11] MEDS: Metoprolol Tartrate TAB* 50 mg PO SCH (07:58)
[2017-11-11] MEDS: Fluticasone NASAL SPRAY 50MCG* 16 gm SPRAY BTL BOTH NARES SCH (07:58)
[2017-11-11] MEDS: Torsemide TAB* 20 MG PO SCH (07:58)
[2017-11-11 12:04] VITALS: BP 113/48
--- NOTE | 2017-11-12 14:57 | DS ---
CC: Dr. Boo Batres.* DISCHARGE SUMMARY: DATE OF ADMISSION: 11/07/17 DATE OF DISCHARGE: 11/11/17 PRIMARY CARE PROVIDER: Dr. Boo Batres. PRIMARY DIAGNOSES: Atrial fibrillation, rapid ventricular response. SECONDARY DIAGNOSES: Include: 1. Urinary tract infection. 2. History of cerebrovascular accident. 3. Elevated troponin I. 4. Unsteady gait. 5. History of coronary artery disease status post coronary artery bypass graft and mitral valve replacement. MEDICATIONS ON DISCHARGE: 1. Diclofenac 1% gel topically 3 times a day as needed. 2. Prolia 60 mg every 6 months. 3. Baclofen 10 mg twice daily. 4. Aspirin 81 mg daily. 5. Pravastatin 40 mg at bedtime. 6. Omeprazole 20 mg daily. 7. Lidocaine patch 5% daily. 8. Folic acid 1 mg daily. 9. Flonase 1 spray both nares daily. 10. Torsemide 10 mg daily. 11. Metoprolol tartrate 50 mg twice daily. 12. Diltiazem CD 360 mg daily, please note increased dose from 120 mg. 13. Apixaban 5 mg twice daily. 14. Amitriptyline 50 mg 3 times a day. PERTINENT MICROBIOLOGY: Urine culture positive for E. coli resistant to cephazolin and amoxicillin. Status post 3 days of ceftriaxone. HISTORY OF PRESENT ILLNESS AND HOSPITAL COURSE: This is a 72-year-old female with a past medical history as outlined in the history of present illness who, on the day of admission, presented to the hospital after a complex stay at home first where she was stuck in a basket, second where she bumped into a table, developed chest pain, was transported by EMS to the hospital. She was found in atrial fibrillation with a rapid ventricular response. Ventricular rates as high as 138 on presentation. She indicated that her granddaughter taking over from her daughter in the management of her medications at home where she lives independently and her granddaughter had been neglecting the management of the medications, not giving her the medications, and potentially diverting some of her money for medications. She notes that she had not been taking her medications for 2 days prior to the present admission. She was started on diltiazem drip which was ultimately titrated off as she was restarted on her metoprolol and diltiazem. Heart rate remained uncontrolled and her diltiazem dose was titrated up as indicated above, to 360 mg daily. On the day of discharge her heart rate was well controlled both at rest as well as with ambulation. She had urine culture positive for E. coli with no associated symptoms; however, in the setting of her presentation she was treated with 3 days of ceftriaxone. Of note, the patient was weak, decondition as well as thought to be struggling with maintenance for health care at home. Subacute rehab was recommended to the patient by this provider as well as previous provider. However, the patient disagreed, refused placement in any location other than her home. A secondary opinion was obtained from psychiatry to evaluate the patient's capacity to participate in discharge planning. It was their formal recommendation that she did have capacity to participate in discharge planning at the time of discharge. Because of her difficulty in obtaining medications at home, I did utilize meds to beds and have her metoprolol, Cardizem, and Apixaban delivered to the hospital. Previous medications have been refilled more recently at her pharmacy and cannot be refilled at this time. Additionally, imaging was notable for an MRI in September that noted spinal stenosis for which the patient should follow up with Dr. Holden. At followup please: 1. Assure the patient is taking her medications correctly. Encourage continued compliance. 2. Encourage followup with Dr. Holden as indicated at previous discharge in September. 3. May encourage short-term stay at subacute rehab, if the patient is more amendable at the time of discharge. 4. No other specific labs or vitals that need followup. At the time of discharge, the patient indicated to her daughter that she was just going to go home for a while and come back to the hospital if she needs to. In this author's opinion, she is at high risk for readmission which is one of the reasons we are indicating high level of assistance, subacute rehab at the time of discharge which the patient is declining at this time. Reasons to return to the hospital including but not limited to, chest pain, shortness of breath, nausea, vomiting, fluttering or palpitations, lightheadedness, loss of consciousness, near loss of consciousness, bleeding from any source, additional falls discussed with the patient she acknowledged understanding. TIME SPENT: Greater than 60 minutes was spent in discharging the patient. Greater than half was spent [id number] with the patient. [id number]/[facility] #: [id number] [facility]ALTH[facility]
== END 2017-11-11 15:40 | disposition home or self-care (01) | DRG 690 ==
LOC: ED 16:29 → ICU 18:45 → MEDTELE 11-08 02:53
PROVIDERS: ADMIT Internal Medicine; ATTEND Internal Medicine
DX: N39.0 Urinary tract infection, site not specified (principal); N17.9 Acute kidney failure, unspecified; I48.91 Unspecified atrial fibrillation; B96.20 Unspecified Escherichia coli [E. coli] as the cause of diseases classified elsewhere; Z16.11 Resistance to penicillins; R74.8 Abnormal levels of other serum enzymes; R26.81 Unsteadiness on feet; M48.00 Spinal stenosis, site unspecified; M79.7 Fibromyalgia; F41.9 Anxiety disorder, unspecified; F32.9 Major depressive disorder, single episode, unspecified; M81.0 Age-related osteoporosis without current pathological fracture; I25.10 Atherosclerotic heart disease of native coronary artery without angina pectoris; D64.9 Anemia, unspecified; E78.5 Hyperlipidemia, unspecified; Z95.1 Presence of aortocoronary bypass graft; Z79.01 Long term (current) use of anticoagulants; Z79.82 Long term (current) use of aspirin; Z79.899 Other long term (current) drug therapy; Z82.49 Family history of ischemic heart disease and other diseases of the circulatory system; Z83.3 Family history of diabetes mellitus; Z80.9 Family history of malignant neoplasm, unspecified; Z87.891 Personal history of nicotine dependence; Z86.73 Personal history of transient ischemic attack (TIA), and cerebral infarction without residual deficits
CPT/HCPCS: 36415; 71045; 80048; 80053; 81003; 81015; 83605; 83735; 83880; 84443; 84484; 85025; 85610; 86140; 87077; 87086; 87186; 93005; 99285; A9270-GY; G8978-GP-CJ; G8979-GP-CI; G8987-GO-CK; G8988-GO-CI; G8989-GO-CI; J0696

== ENCOUNTER 2017-11-13 11:45 | Emergency (ER) | payer MEDICARE, OTHER ==
--- NOTE | 2017-11-13 15:38 | ED ---
Radhika Wilkins Rebecca, scribed for Boo Ivy MD on 11/13/17 at 1200 . Complex/Multi-Sys Presentation - HPI Summary HPI Summary: Pt is a 72 y/o F BIBA who presents to ED c/o being unable to care for herself. Pt was seen by [facility] 6 days ago due to being unable to care for herself secondary to weakness. While in the ED, she was found in A Fib with RVR and was admitted. The plan upon discharge was to send her to a rehabilitation center. She refused this and was instead discharged back home. She returns today, unable to care for herself. Today, she agrees to go to a rehab center. - History Of Current Complaint Chief Complaint: EDWeakness Time Seen by Provider: 11/13/17 11:51 Hx Obtained From: Patient, Medical Records Onset/Duration: Still Present Severity Currently: None Location: Negative Aggravating Factor(s): Nothing Alleviating Factor(s): Nothing Associated Signs And Symptoms: Positive: Other - Unable to care for self Related History: Similar Episode/Diagnosed As: - Seen by [facility] on 11/07 for same sx - Allergies/Home Medications Allergies/Adverse Reactions: Allergies Allergy/AdvReac Type Severity Reaction Status Date / Time No Known Allergies Allergy Verified 09/23/17 12:09 Home Medications: Home Medications Aspirin EC TAB* [Ecotrin EC Low Dose 81 MG*] 81 mg PO DAILY 11/13/17 [History Confirmed 11/13/17] Baclofen TAB* [Lioresal TAB*] 5 mg PO BID 11/13/17 [History Confirmed 11/13/17] Diltiazem CD CAP* [Cardizem CD CAP*] 360 mg PO DAILY 11/13/17 [History Confirmed 11/13/17] Omeprazole CAP* [Prilosec CAP* 20 MG] 20 mg PO DAILY 11/13/17 [History Confirmed 11/13/17] PMH/Surg Hx/FS Hx/Imm Hx Endocrine/Hematology History: Reports: Hx Anticoagulant Therapy, Hx Anemia Denies: Hx Diabetes Cardiovascular History: Reports: Hx Hypercholesterolemia, Hx Hypertension, Hx Syncope, Other Cardiovascular Problems/Disorders - BORN WITH HEART MURMUR, ON MEDS Denies: Hx Pacemaker/ICD Respiratory History: Reports: Hx Seasonal Allergies Denies: Hx Asthma, Hx Chronic Obstructive Pulmonary Disease (COPD), Other Respiratory Problems/Disorders History: Denies: Hx Renal Disease Musculoskeletal History: Reports: Hx Fibromyalgia, Hx Osteoporosis - L HIP;SPINE Sensory History: Reports: Hx Contacts or Glasses, Other Sensory Impairments - fibromyalgia Denies: Hx Hearing Aid Opthamlomology History: Reports: Hx Contacts or Glasses, Other Sensory Impairments - fibromyalgia Neurological History: Reports: Hx Headaches Psychiatric History: Reports: Hx Anxiety - NO MEDICATION FOR AT THIS TIME- STATES HAS BEEN NERVOUS LATELY, Hx Depression - NO MEDICATION FOR AT THIS TIME, Other Psychiatric Issues/Disorders - patient states that she hallucinates Denies: Hx Panic Disorder - Cancer History Hx Chemotherapy: No Hx Radiation Therapy: No - Surgical History Surgery Procedure, Year, and Place: right wrist-plate; gastric stapling; tubal ligation,. hysterectomy-CMC; appendectomy;carpal tunnel right and left,LAP RISA. RIGHT THUMB TENDON REPAIR, Hx Anesthesia Reactions: No - Immunization History Date of Tetanus Vaccine: Yes Date of Influenza Vaccine: Fall 2012 Infectious Disease History: No Infectious Disease History: Denies: Traveled Outside the [place] in Last 30 Days - Family History Known Family History: Positive: Hypertension - Social History Alcohol Use: None Hx Substance Use: Yes Substance Use Type: Reports: None Substance Use Comment - Amount & Last Used: hydrocodone Hx Tobacco Use: Yes Smoking Status (MU): Former Smoker Type: Cigarettes Amount Used/How Often: 10 cigarettes/day Have You Smoked in the Last Year: Yes Review of Systems Positive: Other - Unable to care for self Positive: Other - NEGATIVE: Pain All Other Systems Reviewed And Are Negative: Yes Physical Exam - Summary Physical Exam Summary: VITAL SIGNS: Reviewed. GENERAL: ~Patient is a well-developed and nourished female who is lying comfortable in the stretcher. ~Patient is not in any acute respiratory distress. HEAD AND FACE: No signs of trauma. ~No ecchymosis, hematomas or skull depressions. No sinus tenderness. EYES: PERRLA, EOMI x 2, No injected conjunctiva, no nystagmus. EARS: Hearing grossly intact. Ear canals and tympanic membranes are within normal limits. MOUTH: Oropharynx within normal limits. NECK: Supple, trachea is midline, no adenopathy, no JVD, no carotid bruit, no c- spine tenderness, neck with full ROM. CHEST: Symmetric, no tenderness at palpation LUNGS: Clear to auscultation bilaterally. No wheezing or crackles. CVS: IRR, controlled at a rate of 99, S1 and S2 present, no murmurs or gallops appreciated. ABDOMEN: Soft, non-tender. No signs of distention. No rebound no guarding, and no masses palpated. Bowel sounds are normal. EXTREMITIES: FROM in all major joints, no edema, no cyanosis or clubbing. NEURO: Alert and oriented x 3. No acute neurological deficits. Speech is normal and follows commands. SKIN: Dry and warm Triage Information Reviewed: Yes Vital Signs On Initial Exam: Initial Vitals Resp 18 11/13/17 11:47 Vital Signs Reviewed: Yes Diagnostics - Vital Signs Vital Signs Temp Pulse Resp BP Pulse Ox 11/13/17 11:48 98.9 F 100 22 110/68 96 11/13/17 11:47 18 - Laboratory Lab Statement: Any lab studies that have been ordered have been reviewed, and results considered in the medical decision making process. Complex Multi-Symp Course/Dx Assessment/Plan: This patient is a 72-year-old female who presents to the emergency room with a chief complaint on unable to care for herself. The patient was discharged 2 days ago from the hospital where she was admitted with him the diagnosis of atrial fibrillation with RVR. The atrial fibrillation was controlled and she was ready for discharge to rehabilitation center. However the patient refused. Today she returns to the emergency room with a chief complaint of being unable to care for self. She has no other complaints. [employer] social studies tutor also to for this patient and she was able to place the patient in [facility] for rehabilitation. The patient is hemodynamically stable alert and oriented 3. - Diagnoses Provider Diagnoses: Unable to function independently - Physician Notifications Discussed Care Of Patient With: Social Work Consultation Time Discussed With Above Provider: 15:02 Instructed by Provider To: Other - The pt has been accepted to [facility]. Discharge - Sign-Out/Discharge Documenting (check all that apply): Discharge/Admit/Transfer - Discharge - Discharge Plan Condition: Stable Disposition: HOME Patient Education Materials: Weakness (ED) Referrals: Boo Batres MD [Primary Care Provider] - 3 Days Additional Instructions: RETURN TO ED FOR ANY NEW OR WORSENING SYMPTOMS. - Billing Disposition and Condition Condition: STABLE Disposition: HOME The documentation as recorded by the Radhika serna Rebecca accurately reflects the service I personally performed and the decisions made by me, Boo Ivy MD.
[2017-11-13 16:45] VITALS: BP 151/85
== END 2017-11-13 16:44 | disposition home or self-care (01) ==
LOC: ED 11:45
DX: R53.1 Weakness (principal); I48.91 Unspecified atrial fibrillation; Z79.899 Other long term (current) drug therapy; D64.9 Anemia, unspecified; I10 Essential (primary) hypertension; E78.5 Hyperlipidemia, unspecified; Z79.01 Long term (current) use of anticoagulants; Z87.891 Personal history of nicotine dependence
CPT/HCPCS: 99282

== ENCOUNTER 2018-01-06 07:41 | Observation (INO) | payer MEDICARE, OTHER ==
--- NOTE | 2018-01-06 08:42 | ED ---
HPI Chest Pain - HPI Summary HPI Summary: This is Abida serna, documenting for attending Juliet Bryant MD. This patient is a 72 year old F BIBA to [facility], from [facility], with a chief complaint of intermittent stabbing mid-sternal chest pain. Denies current chest pain, SOB, and palpitations. PMHx of A-fib and a valve replacement and double bypass in 2012. Denies hx of [place] or CHF, PE, or hiatal hernia. Medications include Eloquis. - History of Current Complaint Chief Complaint: EDChestPainROMI Time Seen by Provider: 01/06/18 07:56 Hx Obtained From: Patient Onset/Duration: Started Hours Ago, Resolved Timing: Intermittent Pain Intensity: 0 Pain Scale Used: 0-10 Numeric Chest Pain Location: Mid Sternal Chest Pain Radiates: No Character: Sharp/Stabbing Aggravating Factor(s): Nothing Alleviating Factor(s): Spontaneous Resolution Associated Signs and Symptoms: Positive: Negative, Chest Pain. Negative: Shortness of Breath - Additional Pertinent History Primary Care Physician: HALIE - Allergy/Home Medications Allergies/Adverse Reactions: Allergies Allergy/AdvReac Type Severity Reaction Status Date / Time No Known Allergies Allergy Verified 09/23/17 12:09 Home Medications: Home Medications Acetaminophen [Acetaminophen Extra Strength] 500 mg PO Q12H 01/06/18 [History Confirmed 01/06/18] Amitriptyline TAB* [Elavil TAB*] 50 mg PO TID 01/06/18 [History Confirmed ] Apixaban* [Eliquis*] 5 mg PO BID 01/06/18 [History Confirmed 01/06/18] Aspirin EC TAB* [Ecotrin EC Low Dose 81 MG*] 81 mg PO DAILY 01/06/18 [History Confirmed 01/06/18] Baclofen TAB* [Lioresal TAB*] 5 mg PO BID 01/06/18 [History Confirmed 01/06/18] Bisacodyl SUPP* [Dulcolax Supp*] 10 mg VT DAILY PRN 01/06/18 [History Confirmed 01/06/18] Diclofenac 1% GEL (NF) [Voltaren 1% GEL (NF)] 1 applic TOPICAL TID PRN 01/06/18 [History Confirmed 01/06/18] Diltiazem CD CAP* [Cardizem CD CAP*] 360 mg PO DAILY 01/06/18 [History Confirmed 01/06/18] Fluticasone NASAL SPRAY 50MCG* [Flonase NASAL SPRAY 50MCG*] 1 spray BOTH NARES DAILY 01/06/18 [History Confirmed 01/06/18] Folic Acid TAB* [Folvite TAB*] 1 mg PO DAILY 01/06/18 [History Confirmed ] Ibuprofen TAB* [Advil TAB*] 600 mg PO BID 01/06/18 [History Confirmed 01/06/18] Magnesium Hydroxide LIQ* [Milk of Magnesia LIQ*] 30 ml PO BID PRN 01/06/18 [ History Confirmed 01/06/18] Menthol [Bengay Ultra Strength] 5 % EX DAILY 01/06/18 [History Confirmed ] Metoprolol Tartrate TAB* [Lopressor TAB*] 50 mg PO BID 01/06/18 [History Confirmed 01/06/18] Omeprazole CAP* [Prilosec CAP* 20 MG] 20 mg PO DAILY 01/06/18 [History Confirmed 01/06/18] Pravastatin (NF) [Pravachol (NF)] 40 mg PO DAILY 01/06/18 [History Confirmed ] Sodium Phosphate ADULT ENEMA* [Fleet Enema*] 1 enema [place] DAILY PRN 01/06/18 [ History Confirmed 01/06/18] Torsemide TAB* [Demadex*] 5 mg PO DAILY 01/06/18 [History Confirmed 01/06/18] PMH/Surg Hx/FS Hx/Imm Hx Endocrine/Hematology History: Reports: Hx Anticoagulant Therapy, Hx Anemia Denies: Hx Diabetes Cardiovascular History: Reports: Hx Hypercholesterolemia, Hx Hypertension, Hx Syncope, Other Cardiovascular Problems/Disorders - BORN WITH HEART MURMUR, ON MEDS Denies: Hx Pacemaker/ICD Respiratory History: Reports: Hx Seasonal Allergies Denies: Hx Asthma, Hx Chronic Obstructive Pulmonary Disease (COPD), Other Respiratory Problems/Disorders History: Denies: Hx Renal Disease Musculoskeletal History: Reports: Hx Fibromyalgia, Hx Osteoporosis - L HIP;SPINE Sensory History: Reports: Hx Contacts or Glasses, Other Sensory Impairments - fibromyalgia Denies: Hx Hearing Aid Opthamlomology History: Reports: Hx Contacts or Glasses, Other Sensory Impairments - fibromyalgia Neurological History: Reports: Hx Headaches Psychiatric History: Reports: Hx Anxiety - NO MEDICATION FOR AT THIS TIME- STATES HAS BEEN NERVOUS LATELY, Hx Depression - NO MEDICATION FOR AT THIS TIME, Other Psychiatric Issues/Disorders - patient states that she hallucinates Denies: Hx Panic Disorder - Cancer History Hx Chemotherapy: No Hx Radiation Therapy: No - Surgical History Surgery Procedure, Year, and Place: right wrist-plate; gastric stapling; tubal ligation,. hysterectomy-CMC; appendectomy;carpal tunnel right and left,LAP RISA. RIGHT THUMB TENDON REPAIR, Hx Anesthesia Reactions: No - Immunization History Date of Tetanus Vaccine: Yes Date of Influenza Vaccine: Fall 2012 Infectious Disease History: No Infectious Disease History: Denies: Traveled Outside the [place] in Last 30 Days - Family History Known Family History: Positive: Hypertension - Social History Alcohol Use: None Hx Substance Use: Yes Substance Use Type: Reports: None Substance Use Comment - Amount & Last Used: hydrocodone Hx Tobacco Use: Yes Smoking Status (MU): Former Smoker Type: Cigarettes Amount Used/How Often: 10 cigarettes/day Have You Smoked in the Last Year: Yes Review of Systems Constitutional: Negative Positive: Chest Pain. Negative: Palpitations Negative: Shortness Of Breath All Other Systems Reviewed And Are Negative: Yes Physical Exam - Summary Physical Exam Summary: GENERAL: Patient is a well developed and nourished female who is lying comfortable in the stretcher. Patient is not in any acute respiratory distress. HEAD AND FACE: Normocephalic EYES: PERRLA, EOMI x 2. EARS: Hearing grossly intact. MOUTH: Oropharynx within normal limits. NECK: Supple, trachea is midline, no adenopathy, no JVD, no carotid bruit. CHEST: Symmetric, no tenderness at palpation LUNGS: Clear to auscultation bilaterally. No wheezing or crackles. CVS:Heart is irregularly irregular, S1 and S2 present, no murmurs or gallops appreciated. ABDOMEN: Soft, non-tender. Bowel sounds are normal. No abdominal abnormal pulsations. EXTREMITIES: Full ROM in all major joints, no edema, no cyanosis or clubbing. NEURO: Alert and oriented x 3. No acute neurological deficits. Speech is normal and follows commands. SKIN: Dry and warm Triage Information Reviewed: Yes Vital Signs On Initial Exam: Initial Vitals Temp Pulse Resp BP Pulse Ox 97.2 F 139 23 152/111 99 01/06/18 07:59 01/06/18 07:59 01/06/18 07:59 01/06/18 07:59 01/06/18 07:59 Vital Signs Reviewed: Yes Diagnostics - Vital Signs Vital Signs Temp Pulse Resp BP Pulse Ox 01/06/18 07:59 97.2 F 139 23 152/111 99 - Laboratory Result Diagrams: 01/07/18 06:07 01/07/18 06:06 Lab Statement: Any lab studies that have been ordered have been reviewed, and results considered in the medical decision making process. - Radiology CXR Radiology Interpretation Completed By: Radiologist - CHRONIC INTERSTITIAL DISEASE. THERE IS SUGGESTION OF RIGHT UPPER LOBE AIRSPACE DISEASE WHICH MAY REPRESENT PNEUMONIA. ED Physician has reviewed this report. - EKG 0752 Cardiac Rate: Tachycardia - 134 BPM EKG Rhythm: Atrial Fibrillation - with RVR EKG Interpretation: minimal ST depression in inferior leads, QT prolonged Chest Pain Course/Dx - Course Course Of Treatment: 72 year old F BIBA to [facility], from [facility], with a chief complaint of intermittent stabbing mid-sternal chest pain. Denies current chest pain, SOB, and palpitations. PMHx of A-fib and a valve replacement and double bypass in 2012. Denies hx of [place] or CHF, PE, or hiatal hernia. Medications include Eloquis. Heart is irregularly irregular upon exam. CXR indicative of PNA. EKG reveal A-fib with RVR at 134 BPM. Patient is given IV fluids, Vancomycin, 324mg ASA, and Cardizem drip. [facility], and is at risk with PNA. Upon re-evaluation patient still has A-fib and RVR. Patient is admitted by Dr. Pollack. - Diagnoses Provider Diagnoses: Atrial fibrillation with RVR, PNA (pneumonia) - Provider Notifications Discussed Care Of Patient With: Getachew Pollack - hospitalist Time Discussed With Above Provider: 10:51 Instructed by Provider To: Admit As Inpatient - Critical Care Time Critical Care Time: 30-74 min Discharge - Sign-Out/Discharge Documenting (check all that apply): Patient Departure - Discharge Plan Condition: Stable Disposition: ADMITTED TO [facility] - Billing Disposition and Condition Condition: STABLE Disposition: Admitted to [facility]
--- NOTE | 2018-01-06 09:50 | RAD ---
Indication: Shortness of breath. Single frontal view of the chest performed at 0929 hours was reviewed. Comparison is made with previous exam dated November 07, 2017. Patient status post changed sternal thoracotomy. Increased interstitial edema consistent with CHF is noted. Additionally there is suggestion of right upper lobe airspace disease which May represent pneumonia.. IMPRESSION: CHRONIC INTERSTITIAL DISEASE. THERE IS SUGGESTION OF RIGHT UPPER LOBE AIRSPACE DISEASE WHICH MAY REPRESENT PNEUMONIA.
[2018-01-06 10:06] LABS: ABS Basophils 0.1 10^3/ul (0-0.2); ABS Eosinophils 0.1 10^3/ul (0-0.6); ABS Lymphocytes 2.1 10^3/ul (1.0-4.8); ABS Monocytes 0.7 10^3/ul (0-0.8); ABS Neutrophils 6.2 10^3/ul (1.5-7.7); ABS Nucleated RBC 0 10^3/ul; Eosinophil % 1.5 % (0-6); Hematocrit 32 % (35-47); Hemoglobin 10.2 g/dl (12.0-16.0); Mean Corpuscular HGB Conc 32 g/dl (31-36); Mean Corpuscular Hemoglobin 28 pg (27-31); Mean Corpuscular Volume 87 fL (80-97); Mean Platelet Volume 9.1 um3 (7.4-10.4); Nucleated Red Blood Cells % 0; Platelet Count 172 10^3/ul (150-450); Red Blood Count 3.66 10^6/ul (4.00-5.40); Red Cell Distribution Width 15 % (10.5-15); White Blood Count 9.3 10^3/ul (3.5-10.8)
[2018-01-06 10:14] LABS: INR 1.17 (0.77-1.02)
[2018-01-06] MEDS ORDERED: NS 0.9% 1000 ML* 1,000 ML IV ONE (10:28)
[2018-01-06] MEDS ORDERED: Piperacillin/Tazobac ADVAN(*) 3.375 GM in NS 0.9% 100 ML* 100 ML IVPB ONE ×2 (10:28→10:55)
[2018-01-06] MEDS ORDERED: Vancomycin(*) 1,500 MG in NS 0.9% 250 ML* 250 ML IVPB ONE ×2 (10:29→10:55)
[2018-01-06] MEDS ORDERED: Diltiazem IV VIAL* 5 MG/ML 10 ML VIAL IV SLOW PU ONE (10:35)
[2018-01-06] MEDS ORDERED: Diltiazem DRIP* 100 MG/100 ML ADDV.BAG IVPB ONE (10:35)
[2018-01-06] MEDS ORDERED: Aspirin 81 mg CHEW TAB* 81 MG TAB.CHEW PO ONE (10:55)
[2018-01-06] MEDS ORDERED: NS 0.9% 250 ML* 250 ML ONE ×2 (10:58→11:40)
[2018-01-06 11:03] LABS: EGFR Non-African American 42.6 (>60)
[2018-01-06] MEDS: Diltiazem CD CAP* 180 MG PO SCH (11:43)
[2018-01-06] MEDS ORDERED: Diltiazem IV* 5 MG/ML 5 ML VIAL (for loading dose/IV Push) (25 MG) IV PUSH ONE (12:00)
[2018-01-06] MEDS: Metoprolol Tartrate TAB* 50 mg PO SCH ×2 (12:00→20:43)
[2018-01-06] MEDS ORDERED: Acetaminophen TAB* 325 MG PO PRN (13:25)
[2018-01-06] MEDS ORDERED: Al Hydrox/Mg Hydrox/Simet LIQ* 30 ML UDC PO PRN (13:25)
[2018-01-06] MEDS ORDERED: Bisacodyl SUPP* 10 MG SUPP PR PRN (13:29)
[2018-01-06] MEDS ORDERED: Metoprolol Tartrate IV* 1 MG/ML 5 ML VIAL IV PRN (13:39)
[2018-01-06] MEDS ORDERED: Vancomycin(*) 1,250 MG IV x ONCE IVPB ONE ×2 (14:00)
[2018-01-06] MEDS ORDERED: Zosyn per Pharmacy* NOTE FOLLOW UP SCH (14:00)
[2018-01-06] MEDS ORDERED: Vancomycin per Pharmacy* NOTE FOLLOW UP SCH (14:00)
[2018-01-06] MEDS: Aspirin EC TAB* 81 MG TAB.EC PO SCH (16:47)
[2018-01-06] MEDS: Amitriptyline TAB* 50 MG PO SCH ×2 (16:47→20:42)
[2018-01-06] MEDS: Torsemide TAB* 20 MG PO SCH (16:47)
[2018-01-06] MEDS: Omeprazole CAP* 20 MG PO SCH (16:47)
[2018-01-06] MEDS: Apixaban* 5 MG TAB PO SCH (20:42)
[2018-01-06] MEDS: Baclofen TAB* 10 MG PO SCH (20:43)
[2018-01-06] MEDS ORDERED: Atorvastatin* 10 MG TAB PO SCH (21:00)
--- NOTE | 2018-01-06 22:16 | HP ---
CC: Dr. Boo Batres * HISTORY AND PHYSICAL: DATE OF ADMISSION: 01/05/18 PROVIDER: Mary Manzanares NP PRIMARY CARE PROVIDER: Dr. Boo Batres. ATTENDING PHYSICIAN WHILE IN THE HOSPITAL: Dr. Getachew Pollack * (dictated by Mary Manzanares NP). CHIEF COMPLAINT: Chest pain. HISTORY OF PRESENT ILLNESS: Ms. Villarreal is a 72-year-old female who carries a past medical history significant for hypertension, atrial fibrillation with RVR, fibromyalgia, and right knee pain, who presented to the emergency room today with 2 episodes of chest pain. The patient currently resides at [facility]. She reports that this morning she had 2 episodes of chest pain, each lasting approximately 1 minute and then subsiding. She reports that she has had no pain since her last episode this a.m. She denies any shortness of breath. She currently denies any chest pain. She denies any nausea, vomiting. She denies any diaphoresis. She denies any palpitations. She denies any fever or chills. Denies any cough or congestion. Denies any shortness of breath. She denies any nocturnal dyspnea or orthopnea. While in the emergency room, she had routine lab work drawn. Her troponin was mildly elevated at 0.04, which is chronic for her. She was also found to be in rapid atrial fibrillation with RVR at a rate of 140. She was given Cardizem 10 mg IV in the ER x1 and given her home doses of Cardizem 360 mg p.o. and metoprolol 50. She also states that she has had recent stress and anxiety that has been worse as she has currently been residing at [facility] and she has been trying to go back home. She states that they have been dragging their feet since October and she really wants to return to her home and living at her home. She also reports stress between her daughter and granddaughter as they were caring for her at home and now are not caring for her. Given her tachycardia at rate of 140 and atrial fibrillation with RVR, we were asked to see and evaluate her for admission. PAST MEDICAL HISTORY: Significant for: 1. Hypertension. 2. Atrial fibrillation. 3. Fibromyalgia. 4. Right knee pain. 5. Anxiety and depression. 6. Osteoporosis. PAST SURGICAL HISTORY: 1. Status post right arm ORIF. 2. Tonsillectomy. 3. Appendectomy. 4. Bilateral carpal tunnel release. 5. Mitral valve replacement with porcine valve and 2-vessel CABG in 2017. 6. Abdominal hysterectomy. 7. Cholecystectomy. 8. Gastric stapling. MEDICATIONS: Home medications include: 1. Milk of magnesia 30 mL p.o. b.i.d. p.r.n. 2. Voltaren gel 1 application topically t.i.d. p.r.n. 3. Dulcolax suppository 10 mg p.r. daily p.r.n. constipation. 4. Advil 600 mg p.o. b.i.d. 5. Aspirin 81 mg p.o. daily. 6. Acetaminophen 500 mg p.o. q.12 hours. 7. Torsemide 5 mg p.o. daily. 8. Bengay 5% daily. 9. Cardizem CD 360 mg p.o. daily. 10. Baclofen 5 mg p.o. b.i.d. 11. Omeprazole 20 mg p.o. daily. 12. Eliquis 5 mg p.o. BID. 13. Elavil 50 mg p.o. t.i.d. 14. Pravastatin 40 mg p.o. daily. 15. Lopressor 50 mg p.o. b.i.d. 16. Folic acid 1 mg p.o. daily. 17. Fluticasone 1 spray both nares daily. ALLERGIES TO MEDICATIONS: No known allergies. FAMILY HISTORY: Father with an [place] at age of 84. No history of diabetes. She does report her son had brain cancer in 1981 and passed, a sister with lymphoma , and a sister with cancer of throat and ovarian. SOCIAL HISTORY: She quit smoking in September 2017. Prior to that, she smoked half -a- pack a day. She denies any alcohol use or illicit drug use. She is . She currently lives at [facility]. She is a full code. Surrogate decision maker, in the event she is unable to make her own decisions, is her brother, Cyril Queen. REVIEW OF SYSTEMS: There was no documented fever. There has been no anorexia. She does report 2 episodes of chest pain, which have subsided. She denied any diaphoresis or shortness of breath. She does report some swelling in her hands and feet x1 week. There was no cough, hemoptysis, or shortness of breath. She denies any hematuria or dysuria. Denies any nausea, vomiting, diarrhea. Denies any abdominal pain. Denies any weakness or sensory loss. Denies any visual complaints. Denies any dysphagia. She does report arthralgias, myalgias chronically and generalized that are unchanged. She does report that she has had increased stress and anxiety as she states that she wants to go back home and live at home and not at [facility] and this is making her anxious. PHYSICAL EXAMINATION GENERAL: At this time, Ms. Villarreal is a 72-year-old female. She does not appear in any acute distress, resting on the stretcher in the emergency room. She is currently pain-free. VITAL SIGNS: Temperature was 97.2, heart rate was 138, respirations were 23, O2 saturation 99%, blood pressure is 152/111. HEENT: Head is atraumatic, normocephalic. Eyes: EOMs are intact. Sclerae are anicteric and not pale. Oral mucosa appeared to be moist. NECK: Supple. LUNGS: Clear to auscultation bilaterally with diminished breath sounds in the bases. CARDIAC: S1, S2. Irregular rate and tachycardic. No murmurs, rubs, or gallops. ABDOMEN: Soft and nontender. Bowel sounds are present x4. EXTREMITIES: Pulses are +2 bilaterally. She does have 1+ pitting edema to bilateral lower extremities. She has 5/5 strength. NEUROLOGIC: She is awake, alert, and oriented x3. Speech is clear. There are no gross focal deficits. SKIN: Skin is intact. DIAGNOSTIC STUDIES/LAB DATA: WBCs were 9.3, RBCs 3.66, hemoglobin was 10.2, hematocrit was 32, platelet count was 172. INR was 1.17, APTT was 32.6, D- dimer was 260. Sodium 141, potassium 4.2, chloride was 113, carbon dioxide was 23, anion gap was 5, BUN was 24, creatinine 1.24, lactic acid was 0.5, calcium 8.9. Alkaline phosphatase was 105. Troponin 0.04, 0.04 and 0.03. BNP was 680. TSH was 1.06. Procalcitonin was less than 0.1. Urine is pending. Chest x-ray. Radiologist's impression: Chronic interstitial disease. There is suggestion of a right upper lobe airspace disease, which may represent pneumonia. Electrocardiogram shows atrial fibrillation at a rate of 134. ASSESSMENT AND PLAN: Ms. Villarreal is a 72-year-old female patient, who presented to the emergency room today after 2 brief episodes of chest pain stating lasting approximately 1 minute. She has had no further chest pain. While in the emergency room, she was found to be in rapid atrial fibrillation with rapid ventricular response. We were asked to admit her for observation due to chest pain and rapid atrial fibrillation. 1. Chest pain. I suspect her chest pain is related to her atrial fibrillation with rapid ventricular response. She did receive Cardizem 10 mg IV x1. She will receive Cardizem 360 mg p.o. and metoprolol 50 mg p.o. I will order p.r.n. Lopressor 5 mg IV for heart rate greater than 120 and blood pressure greater than 180. We will continue her on her Eliquis. Home medications, we will continue her metoprolol 50 mg p.o. b.i.d. and Cardizem 360 mg p.o. daily. She will also continue aspirin 81 mg daily. 2. Hypertension. She will continue on metoprolol and Cardizem as ordered at home. 3. Elevated troponin. I suspect this is secondary to atrial fibrillation with rapid ventricular response. We will continue to trend her troponins. 4. Elevated BNP. She has a chronic elevation in her BNP. This was slightly more. We will watch her for increased shortness of breath or increased swelling. She does have mild pitting edema to bilateral lower extremities. 5. Possible pneumonia. The patient's chest x-ray shows possible right upper lobe pneumonia. She will be treated with vancomycin and Zosyn as she does reside at [facility]. Her procalcitonin was negative. She has been afebrile. She has no leukocytosis. 6. FEN: She will be placed on a heart-healthy, decaf-okay diet. 7. Code status: She is a full code. 8. DVT prophylaxis: We will continue her on her Eliquis. 9. Disposition: She will be placed inpatient on observation. TIME SPENT: Time spent on this admission was approximately 60 minutes, greater than half of that time was spent [id number] with the patient obtaining my history and physical, the other half of the time was spent going over my plan of care and implementing my plan of care. I have discussed this with my attending, Dr. Getachew Pollack, and he is in agreement with my plan. MARY MANZANARES, BUSINESS PROCESS CONSULTANT [id number]/[facility] #: [id number] NABILA
[2018-01-07] MEDS: ZOSYN 3.375 GM Q8H per EXTENDED INFUSION IVPB SCH ×6 (00:01→08:04)
[2018-01-07] MEDS ORDERED: Vancomycin(*) 750 MG in NS 0.9% 250 ML* 250 ML IVPB SCH (01:00)
[2018-01-07 04:12] LABS: Urine Appearance Clear; Urine Blood Negative (Negative); Urine Color Straw; Urine Ketones Negative (Negative); Urine Protein Negative (Negative); Urine Urobilinogen Negative (Negative)
[2018-01-07 06:31] LABS: ABS Basophils 0.2 10^3/ul (0-0.2); ABS Eosinophils 0.3 10^3/ul (0-0.6); ABS Lymphocytes 2.7 10^3/ul (1.0-4.8); ABS Monocytes 1.3 10^3/ul (0-0.8); ABS Neutrophils 7.9 10^3/ul (1.5-7.7); ABS Nucleated RBC 0 10^3/ul; Eosinophil % 2.2 % (0-6); Hematocrit 34 % (35-47); Hemoglobin 11.1 g/dl (12.0-16.0); Lymphocyte % 22.1 % (25-47); Mean Corpuscular HGB Conc 32 g/dl (31-36); Mean Corpuscular Hemoglobin 28 pg (27-31); Mean Corpuscular Volume 86 fL (80-97); Mean Platelet Volume 9.4 um3 (7.4-10.4); Nucleated Red Blood Cells % 0; Platelet Count 161 10^3/ul (150-450); Red Blood Count 3.98 10^6/ul (4.00-5.40); Red Cell Distribution Width 15 % (10.5-15); White Blood Count 12.3 10^3/ul (3.5-10.8)
[2018-01-07 06:51] LABS: EGFR Non-African American 49.5 (>60)
[2018-01-07] MEDS: Torsemide TAB* 20 MG PO SCH (08:05)
[2018-01-07] MEDS: Amitriptyline TAB* 50 MG PO SCH (08:05)
[2018-01-07] MEDS: Apixaban* 5 MG TAB PO SCH (08:05)
[2018-01-07] MEDS: Diltiazem CD CAP* 180 MG PO SCH (08:05)
[2018-01-07] MEDS: Baclofen TAB* 10 MG PO SCH (08:05)
[2018-01-07] MEDS: Metoprolol Tartrate TAB* 50 mg PO SCH (08:06)
[2018-01-07] MEDS: Aspirin EC TAB* 81 MG TAB.EC PO SCH (08:06)
[2018-01-07] MEDS: Omeprazole CAP* 20 MG PO SCH (08:06)
[2018-01-07] MEDS ORDERED: Fluticasone NASAL SPRAY 50MCG* 16 gm SPRAY BTL BOTH NARES SCH (09:00)
[2018-01-07] MEDS ORDERED: Folic Acid TAB* 1 MG PO SCH (09:00)
[2018-01-07 12:07] VITALS: BP 144/56
[2018-01-08] MEDS ORDERED: Vancomycin Trough Check NOTE FOLLOW UP ONE (12:30)
--- NOTE | 2018-01-09 23:34 | DS ---
CC: Dr. Boo Batres * DISCHARGE SUMMARY: DATE OF ADMISSION: 01/06/18 DATE OF DISCHARGE: 01/07/18 PROVIDER: Mary Manzanares NP ATTENDING PHYSICIAN: Dr. Chichi Bowers * (dictated by Mary Manzanares NP). PRIMARY CARE PROVIDER: Dr. Boo Batres. PRIMARY DIAGNOSES: 1. Rapid atrial fibrillation. 2. Right upper lobe pneumonia. SECONDARY DIAGNOSES: 1. Hypertension. 2. Fibromyalgia. 3. Right knee pain. 4. Anxiety and depression. 5. Osteoporosis. STUDIES COMPLETED WHILE IN THE HOSPITAL: She had a chest x-ray on 01/06/18. Radiologist's impression: Chronic interstitial disease. There is suggestion of right upper lobe airspace disease, which may represent pneumonia. She had an electrocardiogram on 01/06/18, which showed rapid atrial fibrillation at rate of 134. DISCHARGE MEDICATIONS: 1. Azithromycin, Z-ISABELLA, as directed. 2. Vantin 200 mg p.o. b.i.d. x7 days. Continued home medications: 1. Adult enema, one enema [place] as needed p.r.n. 2. Milk of magnesia 30 mL p.o. b.i.d. p.r.n. 3. Voltaren 1% gel topically t.i.d. as needed. 4. Dulcolax suppository 10 mg [place] daily p.r.n. constipation. 5. Ibuprofen 600 mg p.o. b.i.d. 6. Aspirin enteric-coated 81 mg p.o. daily. 7. Acetaminophen 500 mg p.o. q.12 hours. 8. Demadex 5 mg p.o. daily. 9. Bengay 5% as needed. 10. Diltiazem 360 mg p.o. daily. 11. Baclofen 5 mg p.o. b.i.d. 12. Omeprazole 20 mg p.o. daily. 13. Eliquis 5 mg p.o. b.i.d. 14. Amitriptyline 50 mg p.o. t.i.d. 15. Pravastatin 40 mg p.o. daily. 16. Metoprolol 50 mg p.o. b.i.d. 17. Folic acid 1 mg p.o. daily. 18. Fluticasone 1 spray both nares daily. HISTORY OF PRESENT ILLNESS AND HOSPITAL COURSE: Ms. Villarreal is a 72-year- old female, who carries a past medical history significant for hypertension, atrial fibrillation with RVR, fibromyalgia, right knee pain, who presented to the emergency room with 2 episodes of chest pain. The patient currently resides at [facility]. She reports that she had 2 episodes of chest pain lasting approximately 1 minute each and then subsiding. Since her admission to the hospital, she has had no further episodes of chest pain. She denies any shortness of breath. She denies any nausea, vomiting, or diarrhea. She denies any diaphoresis, any palpitations. She denies any fever, chill, cough, or congestion. Denies any nocturnal dyspnea or orthopnea. While in the emergency room, she had routine lab work drawn. Her troponin was elevated at 0.04, which is her chronic baseline. She was found to be in rapid atrial fibrillation with RVR at a rate of 140. She was given Cardizem 10 mg IV in the ER x1 and given her p.o. dose of Cardizem 360 p.o. and metoprolol 50. She also reports that she has had recent stress and anxiety that has been worse as she is currently residing at [facility] and wants to go back home. She was admitted to the hospital and observed on the telemetry floor. Her atrial fibrillation was controlled with her home p.o. medications. She was placed on antibiotic for her right upper lobe pneumonia, but continued to deny any cough or congestion. On the day of discharge, the patient reports that she is feeling better, she has no complaints. REVIEW OF SYSTEMS: She denies any fever or chills. Denies any nausea, vomiting , diarrhea. Denies any abdominal pain. Denies any chest pain or shortness of breath. Denies any rashes or lesions. Denies any focal weakness or sensory loss. Denies any hematuria or dysuria. PHYSICAL EXAMINATION: General: Ms. Villarreal appears comfortable, resting in her bed. She is in no acute distress. HEENT: Head is atraumatic, normocephalic. Oral mucosa appeared to be moist. Neck is supple. Lungs are clear to auscultation bilaterally. No wheezes, rales, or rhonchi. Cardiac: S1 , S2, with a regular rate and rhythm. There are no murmurs, rubs, or gallops. Abdomen is soft and nontender. Bowel sounds are present x4. Extremities: Pulses are +2 bilaterally. She does have mild 1+ pitting edema to bilateral lower extremities. Skin: Intact. Musculoskeletal: She has 5/5 strength noted to all 4 extremities. Ms. Villarreal is stable for discharge home today. Vital signs are as follows : Temperature is 99.2, heart rate 66, respirations are 20, O2 saturation 100% on room air, blood pressure is 144/56. DISCHARGE PLAN: Ms. Villarreal will be discharged back to [facility]. Activity as tolerated. She should continue on a heart-healthy, low-sodium diet. 1. Atrial fibrillation with RVR. She should continue on Cardizem 360 mg p.o. daily and metoprolol as previously prescribed. She should follow up with her primary non destructive testing engineer in 4 to 7 days for further management of her rapid atrial fibrillation. The patient should continue on Eliquis 5 mg p.o. daily and aspirin 81 mg p.o. daily. 2. Right upper lobe pneumonia. She was placed on azithromycin 250 mg p.o. daily and Vantin 200 mg p.o. b.i.d. x7 days. 3. Hypertension. She should continue Lopressor 50 mg p.o. daily b.i.d. and Cardizem 360 p.o. daily, torsemide 5 mg p.o. daily. 4. Hyperlipidemia. She should continue on her pravastatin 40 mg p.o. daily. FOLLOWUP: The patient should follow up with her primary care provider in 1 to 2 weeks. The patient was instructed to return to the emergency room for any chest pain or shortness of breath or any other concerning symptoms. This is a summarization of her hospitalization. For further details, please see the entire medical record. TIME SPENT: Time spent on this discharge was approximately 60 minutes, greater than half that time was spent with the patient discussing discharge plans and instructions. CONDITION ON DISCHARGE: Stable. MARY MANZANARES, EXERCISE SCIENTIST [id number]/[facility] #: [id number] [facility] MEDICAL CENTERGalindo
== END 2018-01-07 15:47 ==
LOC: ED 07:41 → MEDTELE 13:21 → INTOOBSV 13:21
PROVIDERS: ADMIT Student in an Organized Health Care Education/Training Program; ATTEND Internal Medicine
DX: I48.91 Unspecified atrial fibrillation (principal); R07.9 Chest pain, unspecified; J18.9 Pneumonia, unspecified organism; R74.8 Abnormal levels of other serum enzymes; I10 Essential (primary) hypertension; M79.7 Fibromyalgia; F41.8 Other specified anxiety disorders; M81.0 Age-related osteoporosis without current pathological fracture; M25.561 Pain in right knee; Z79.01 Long term (current) use of anticoagulants; Z79.899 Other long term (current) drug therapy; Z87.891 Personal history of nicotine dependence
CPT/HCPCS: 36415; 71045; 80048; 80053; 80061; 81003; 83605; 83735; 83880; 84145; 84443; 84484; 85025; 85379; 85610; 85730; 87040; 87641; 87899; 93005; 96365; 96366; 96367; 96375; 99284; A9270-GY; G0378; J2543; J3370; J3490

== ENCOUNTER 2018-03-15 06:05 | Inpatient (IN) | payer MEDICARE, OTHER ==
--- NOTE | 2018-03-15 06:23 | ED ---
Lower Extremity - HPI Summary HPI Summary: Patient is a 72-year-old female who presents emergency department for right hip pain after mechanical fall. Patient currently resides with her daughter. Extensive past medical history is currently anticoagulated with Eliquis for paroxysmal afib. Patient states she got up from her bed around 0400 today to adjust fireplace she was cold. Patient states she bent down to turn up fireplace when she lost balance and fell backward striking her right hip on a chair. Patient states she struck the back of her head on the wall but denies loss of consciousness. Patient states she sat on the chair until her daughter was able to assist her to her feet. Patient denies prior or current chest pain , shortness of breath, palpitations, recent illness, abdominal pain, vomiting, diarrhea. She complains of mild headache and neck pain. Symptoms are moderate in severity. Movement makes symptoms worse. Rest makes symptoms better. Past medical hx CAD, CVA, CHF, renal insufficiency. - History of Current Complaint Chief Complaint: EDHipPelvisInjury Stated Complaint: RT HIP PAIN FROM FALL Time Seen by Provider: 03/15/18 06:07 Hx Obtained From: Patient Pain Intensity: 3 - Allergies/Home Medications Allergies/Adverse Reactions: Allergies Allergy/AdvReac Type Severity Reaction Status Date / Time No Known Allergies Allergy Verified 09/23/17 12:09 PMH/Surg Hx/FS Hx/Imm Hx Previously Healthy: Yes Endocrine/Hematology History: Reports: Hx Anticoagulant Therapy, Hx Anemia Denies: Hx Diabetes Cardiovascular History: Reports: Hx Hypercholesterolemia, Hx Hypertension, Hx Syncope, Other Cardiovascular Problems/Disorders - BORN WITH HEART MURMUR, ON MEDS Denies: Hx Pacemaker/ICD Respiratory History: Reports: Hx Seasonal Allergies Denies: Hx Asthma, Hx Chronic Obstructive Pulmonary Disease (COPD), Other Respiratory Problems/Disorders History: Denies: Hx Renal Disease Musculoskeletal History: Reports: Hx Fibromyalgia, Hx Osteoporosis - L HIP;SPINE Sensory History: Reports: Hx Contacts or Glasses, Other Sensory Impairments - fibromyalgia Denies: Hx Cataracts, Hx Eye Injury, Hx Eye Prosthesis, Hx Glaucoma, Hx Legally Blind, Hx Macular Degeneration, Hx Vision Problem, Hx Deafness, Hx Hearing Aid, Hx Hearing Problem Opthamlomology History: Reports: Hx Contacts or Glasses, Other Sensory Impairments - fibromyalgia Denies: Hx Cataracts, Hx Eye Injury, Hx Eye Prosthesis, Hx Glaucoma, Hx Legally Blind, Hx Macular Degeneration, Hx Vision Problem Neurological History: Reports: Hx Headaches Psychiatric History: Reports: Hx Anxiety - NO MEDICATION FOR AT THIS TIME- STATES HAS BEEN NERVOUS LATELY, Hx Depression - NO MEDICATION FOR AT THIS TIME, Other Psychiatric Issues/Disorders - patient states that she hallucinates Denies: Hx Panic Disorder - Cancer History Hx Chemotherapy: No Hx Radiation Therapy: No - Surgical History Surgery Procedure, Year, and Place: right wrist-plate; gastric stapling; tubal ligation,. hysterectomy-CMC; appendectomy;carpal tunnel right and left,LAP RISA. RIGHT THUMB TENDON REPAIR, Hx Anesthesia Reactions: No - Immunization History Date of Tetanus Vaccine: Yes Date of Influenza Vaccine: Fall 2012 Infectious Disease History: No Infectious Disease History: Denies: Traveled Outside the [place] in Last 30 Days - Family History Known Family History: Positive: Hypertension - Social History Occupation: Disabled Lives: With Family Alcohol Use: None Hx Substance Use: Yes Substance Use Type: Reports: None Substance Use Comment - Amount & Last Used: hydrocodone Hx Tobacco Use: Yes Smoking Status (MU): Former Smoker Type: Cigarettes Amount Used/How Often: 10 cigarettes/day Have You Smoked in the Last Year: Yes Review of Systems Constitutional: Negative Eyes: Negative ENT: Negative Cardiovascular: Negative Negative: Palpitations, Chest Pain Respiratory: Negative Negative: Shortness Of Breath, Cough Gastrointestinal: Negative Negative: Abdominal Pain, Vomiting, Diarrhea Genitourinary: Negative Positive: Other - right hip pain and low back pain Skin: Negative Positive: Headache. Negative: Weakness, Paresthesia, Numbness, Syncope All Other Systems Reviewed And Are Negative: Yes Physical Exam Triage Information Reviewed: Yes Vital Signs On Initial Exam: Initial Vitals Temp Pulse Resp BP Pulse Ox 97.7 F 72 16 126/95 99 03/15/18 06:06 03/15/18 06:06 03/15/18 06:06 03/15/18 06:06 03/15/18 06:06 Vital Signs Reviewed: Yes Appearance: Positive: Well-Appearing - Patient lying in bed in no acute distress. Talkative. Wearing cervical collar. Skin: Positive: Warm, Dry Head/Face: Positive: Normal Head/Face Inspection Eyes: Positive: Normal, EOMI, VERONIQUE, Conjunctiva Clear Neck: Positive: Other: - Cervical collar in place. Respiratory/Lung Sounds: Positive: Clear to Auscultation, Breath Sounds Present Cardiovascular: Positive: Normal, RRR Abdomen Description: Positive: Nontender, Soft Musculoskeletal: Positive: Other - No midline vertebral pain. Palpation to the posterior, proximal great femur. No obvious deformity. Leg is neurovascularly intact. Neurological: Positive: Normal, CN Intact II-III Psychiatric: Positive: Affect/Mood Appropriate - Ceasar Coma Scale Best Motor Response: 6 - Obeys Commands Best Verbal Response: 5 - Oriented Diagnostics - Vital Signs Vital Signs Temp Pulse Resp BP Pulse Ox 03/15/18 06:06 97.7 F 72 16 126/95 99 - Laboratory Result Diagrams: 03/15/18 10:08 03/15/18 10:08 Lab Statement: Any lab studies that have been ordered have been reviewed, and results considered in the medical decision making process. Lower Extremity Course/Dx - Course Course Of Treatment: Pt. presenting for right hip and low back pain after a mechanical fall. She is afebrile with stable vital signs. Imaging ordered. Head and neck CT are netive for acute findings, per radiology. Lumbar xray shows questionable new T12 compression fx, per radiology. On exam pt. has no pain over this area but does not that she has had multiple falls over the last several weeks. Hip xray is negative for acute findings, per radiololgy. 0930: Pt. re-evalutated and HR noted to be in the 130s. Pt. denies CP or SOB. ECG done at 0944 shows likely A. fib with RVR at a rate of the 132 bpm. Case discussed with Dr. Barbosa, who recommends 15mg cardizem. IV and fluids started , labs drawn. Pt. also discussed with that she lives with her daughter and she has not been taking very good care of her. Pt. notes she has chronic back pain and currently has an aid who helps her shower and drives her to apt. Pt. states that her daughter at times refuses to give her pain medications, will consult social services aide. 1051: ECG shows aflutter at 67bpm. Labs show chronic anemia and renal insufficiency. Troponin slightly elevated at 0.04. 1058: Hospitalist was consulted for admission. I spoke with Dr. Garibay at 1058 and he will consider pt. for admission. 1220: Pt.'s rate jumped back up to in the 140's. Discussed discussed with Dr. Barbosa again and recommends 10mg IV cardizem and to start drip. Pt. was eventually accepted for admission by hospitalist. Was unable to access pt.'s ambulation in the ER, if right hip pain persist she will need CT scan to r/o occult fx. - Diagnoses Differential Diagnosis/HQI/PQRI: Positive: Arthritis, Contusion, Dislocation, Fracture (Closed), Sprain, Strain Provider Diagnoses: Atrial fibrillation with RVR, Hip pain, Fall Discharge - Sign-Out/Discharge Documenting (check all that apply): Patient Departure - Discharge Plan Condition: Stable Disposition: ADMITTED TO [facility] - Billing Disposition and Condition Condition: STABLE Disposition: Admitted to [facility]
--- OUTSIDE RECORDS SUMMARY | 2018-03-15 07:11 | XMS REPORT ---
:1945 External Reference #:[id number] Author Organization [facility] Address [address] [place] [address] Phone [phone] Care Team Providers Name Role Phone Boo Batres III, MD Primary Care Physician Unavailable Payers Type Date Identification Numbers Payment Provider Subscriber Commercial Effective: Policy Number: Hong Stack/Irina Maricarmen Thomas 2017 [id number] Torri Villarreal PayID: [id number] [address] [address] Attn: [place] [address] Commercial Policy Number: [id number] Sergey Villarreal PayID: [id number] [address] [place] [address] Medigap Part B Expires: 2017 Policy Number: Sergey Villarreal [id number] PayID: [id number] [address] [place] [address] Workers Onset: Policy Number: State Insurance Maricarmen E Compensation 1985 [id number] Erasmo Villarreal Group Number: [id number] [address] [address] Group Name: 5% [place] [address] [place]: [email or web address] Workers Onset: Policy Number: State Insurance Maricarmen E Compensation 1985 [id number] Erasmo Villarreal Group Number: [id number] [address] [address] Group Name: 10% [place] [address] [place]: [email or web address] Workers Onset: Policy Number: State Insurance Maricarmen E Compensation 1985 [id number] Erasmo Villarreal Group Number: [id number] [address] [address] Group Name: 25% [place] [id number] PayID: [id number] Workers Onset: Policy Number: State Insurance Maricarmen Thomas Compensation 1985 [id number] Erasmo Villarreal Group Number: [id number] [address] [address] Group Name: 10% [place] [id number] [place]ID: [id number] Advance Directives Type Date Description Status Comment Other Directive 02/05/2018 Health Care Proxy Current and Verified Problems Date Description Provider Status Onset: 03/27/2011 [...] Onset: 03/23/2017 Fibromyalgia ELIJAH Mora Active Onset: 02/05/2018 Atrial flutter Boo Batres M.D. Active Onset: 02/05/2018 Neck pain Boo Batres M.D. Active Onset: 11/19/2011 Chest pain Rosie Tanner MLadariusD. Resolved: 12/17/2016 Family History Date Family Member(s) Problem(s) Comments General Heart Disease General Diabetes General Cancer : (age 50 Years) First Sister due to Cancer bone cancer Social History Type Date Description Comments Marital Status 2017 Lives With Daughter Cigarette Use current cigarette smoker ETOH Use Denies alcohol use Smoking Light tobacco smoker (10 or 1 ppd max for over 40 fewer cigarettes/day) years; began age 17 Daily Caffeine Consumes on average 3 cups [...] Form Strength Qnty SIG Indications Ordering Provider Diltiazem HCL 02/14/ Active Tablets ER 360mg 90tab 1 by mouth Sophy S. ER Coated Beads 2017 24HR s every day Shelton N.P. Digoxin 02/10/ Active Tablets 125mcg 90tab 2 tablets Caleb 2017 s am 8.18 F. and 2 Mauser, tablets pm M.D. 18 and then 1 by mouth every day Torsemide 11/26/ Active Tablets 5mg 90tab 2 by mouth Boo E. 2017 s every day Gisel, as needed M.D. Amitriptyline 10/28/ Active Tablets 50mg 90tab take 1 Boo E. HCL 2017 s tablet by Gisel, mouth three M.D. times a day Voltaren 07/16/ Active Gel 1% 300gm apply 2-3 M65.871 Boo Lennon 2016 times daily Gisel, to affected M.D. ankle Omeprazole 06/25/ Active Capsules DR 20mg 90cap take one Boo E. 2015 s capsule by Gisel, mouth once M.D. daily Fluticasone 11/16/ Active Suspension 50mcg/Act 16uni use one Munir Propionate 2012 ts spray in DLadarius Bahena, each M.D.,FACP nostril every day Pravastatin 11/12/ Active Tablets 40mg 90tab take 1 Caleb Sodium 2011 s tablet by F. mouth at Mauser, bedtime M.D. Centrum Silver 12/07/ Active Tablets 1 po qd Radha Gipson M.D. Fish Oil 12/07/ Active Capsules 1000mg 1 po qd Radha Gipson M.D. Lidoderm / Active Patches 5% 30uni topical 10 Unknown 0000 ts hours prn Aspir-81 / Active Tablets DR 81mg 90tab 3 by mouth Boo E. 0000 s as needed Marissa Batres Baclofen / Active Tablets 10mg 90tab 1/2 tab by Boo E. 0000 s mouth twice Gisel, daily M.DLadarius Calcium / Active Tablets 600mg 1 po bid Unknown 0000 [facility] Slow / Active Tablets ER 143(45Fe) 1 po qd Unknown Release Iron 0000 mg Vit C / Active Chewtabs 125mg take one Unknown 0000 capsule bid Zinc / Active Capsules 1 by mouth Unknown 0000 bid Magnesium / Active 2 po qd Unknown Sulfate 0000 Eliquis / Active Tablets 5mg 1 by mouth Unknown 0000 twice a day Folic Acid / Active Tablets 1mg 90tab 1 by mouth Boo E. 0000 s every day Marissa Batres Metoprolol / Active Tablets 50mg 180ta 1 tab twice Boo ELadarius Tartrate 0000 bs daily. Marissa Batres Diltiazem HCL 02/12/ Hx Caps ER 360mg 90cap 1 by mouth Boo ELadarius ER Beads 2018 - 24HR s every day Gisel 02/12/ Marissa 2018 Demadex 03/03/ Hx Tablets 10mg 14tab 1 tablet Caleb 2017 - s daily as F. 08/22/ needed for Lindsey2017 weight gain M.D. > 3 lbs Iron Supplement 03/03/ Hx Tablets 325mg 90tab one by Caleb 2017 - s mouth daily F. 02/09/ Lindsey 2017 BryanDLadarius Metoprolol 10/21/ Hx Tablets 25mg 90tab 1/2 by Caleb Tartrate 2017 - s mouth twice F. 11/25/ a day Lindsey 2017 Marissa Iron (Ferrous 10/17/ Hx Tablets 256(28Fe) Caleb Gluconate) 2017 - mg F. 10/17/ Lindsey 2016 M.D. Iron 10/17/ Hx Tablets 325mg 30tab 1 tab by Caleb High-Potency 2016 - s mouth every F. 02/09/ day Lindsey2016 M.D. Lisinopril 10/14/ Hx Tablets 5mg 90tab 1 by mouth Caleb 2016 - s every day F. 11/07/ hold as of Lindsey2016 4.25.17 M.D. Cartia XT 04/10/ Hx Caps ER 120mg 180ca 1 by mouth I10 Caleb 2015 - 24HR ps in the F. 11/25/ morning and Lindsey2017 1 at night M.DLadarius Augmentin 10/01/ Hx Tablets 500-125mg 20tab 1 by mouth Boo Lennon 2015 - s twice a day Gisel 03/05/ MFam 2015 Metoprolol 07/30/ Hx Tablets ER 25mg 45tab 1/2 tab Caleb Succinate ER 2015 - 24HR s daily F. 10/21/ (patient Lindsey2016 brought in M.D. a Metoprolol Tar bottle) Prolia 02/27/ Hx Solution 60mg/ml 60mg 60 mg sc M81.0 Boo Lennon 2013 - q6mon Gisel, 02/09/ MFam 2017 Z92.29 Prolia 08/25/2013 - Hx Solution 60mg/ml 60mg 60 mg sc Boo Lennon 01/09/2014 q6mon Marissa Batres Metoprolol Tartrate 07/29/2013 - Hx Tablets 25mg 90tabs 1/2 tab by Caleb 07/30/2015 mouth twice Carlene Portillo, a day M.DLadarius Alendronate Sodium 03/04/2013 - Hx Tablets 70mg 12tabs take one Boo Lennon 01/26/2015 tablet by mallory Batres once a M.D. week Metoprolol Tartrate 11/19/2011 - Hx Tablets 25mg 90tabs Stopped Caleb 08/01/2013 taking 1 Carlene Portillo, month ago. M.D. 1/2 po bid Septra DS 08/08/2011 - Hx Tablets 800-160mg 20tabs one po bid Boo Lennon 08/18/2011 for ten days Marissa Batres Metoprolol Tartrate 06/05/2011 - Hx Tablets 25mg 300tab 2 po qam and Caleb 11/19/2011 s 1 po qpm Carlene Portillo M.D. Furosemide 03/27/2011 - Hx Tablets 20mg 1 po qam prn Boo Lennon 05/21/2012 Marissa Batres Chantix 09/27/2010 - Hx Tablets 0.5mg X use as Boo Thomas. 09/27/2010 11 & 1 mg directed Stephani Batres M.D. Chantix 09/27/2010 - Hx Tablets 1mg 60tabs 1 po bid Boo ELadarius 03/27/2011 Marissa Batres Chantix Starting 08/13/2010 - Hx Tablets 0.5mg X 1tabs use as Boo E. Month Box 09/27/2010 11 & 1 mg directed Stephani Batres M.D. Lopressor 04/18/2010 - Hx Tablets 25mg 270tab 1 po tid Caleb 06/05/2011 steve Portillo M.D. Amoxicillin 03/19/2010 - Hx Tablets 500mg 30tabs 1 po tid for 4 Boo ELadarius 04/25/2010 10 days Lauren Munson M.D. . 9 Lopressor 03/15/2010 - Hx Tablets 25mg 180tab 1 po tid Boo Lennon 04/18/2010 steve Batres M.D. Lopressor 03/05/2010 - Hx Tablets 50mg 1/2 po tid Caleb 03/15/2010 Carlene Portillo M.D. Lopressor 02/13/2010 - Hx Tablets 50mg 90tabs 1/2 po at pm [facility] 03/05/2010 Carlene Portillo M.D. Septra DS 02/06/2010 - Hx Tablets 800-160mg 6tabs 1 po bid for Boo ELadarius 02/13/2010 3 days Marissa Batres Chantix Continuing 12/19/2009 - Hx Tablets 1mg 1month 1 po bid Boo Juan Kristopher 08/13/2010 aric Batres M.D. [facility] 11/20/2009 - Hx eval/Rx for Boo Lennon 12/19/2009 chronic back Gisel, pain M.D. Chantix Starting 11/20/2009 - Hx Tablets 0.5mg X per 3 Boo E. Month Kristopher 12/19/2009 11 & 1 mg directions 3 Gisel, X 8 M.D. . 4 Flonase 09/28/2009 - Hx Suspension 50mcg/Act 1Bottl 1 intranasal 4 Boo Lennon 11/16/2012 e puff to each 7 Gisel, nostril 7 M.D. daily . 8 Clonazepam 08/28/2009 - Hx Tablets 0.5mg 60tabs 1 po daily Boo Lennon 11/19/2011 Marissa Batres Clonazepam 08/07/2009 - Hx Tablets 1mg 30tabs take one 3 Murli 08/28/2009 twice a day 3 Kelly, for one week 8 M.D. and then . take one at 4 night only till your next appointment Augmentin 08/07/2009 - Hx Tablets 875-125mg 28tabs one twice a 3 Murli 08/28/2009 day for 14 3 Kelly, days 8 M.D. . 4 Clonazepam 06/19/2009 - Hx Tablets 1mg 90tabs 1 po in am, 3 Thananart, 08/28/2009 2 po qpm 0 Radha, 0 M.D. . 0 2 Naproxen 06/19/2009 - Hx Tablets 500mg 180tab 1 tablet po Boo Lennon 01/17/2010 s bid prn Marissa Batres Zithromax Z-Kristopher 06/06/2009 - Hx Tablets 250mg 1Pak take as Thananart, 06/25/2009 directed Marissa Garcia Amoxicillin 05/28/2009 - Hx Tablets 875mg 20tabs 1 tab po bid 4 Thananart, 06/25/2009 x 10 d. 6 Radha, 1 M.D. . 9 Naproxen 04/12/2009 - Hx Tablets 500mg 60tabs 1 tab po bid 7 Thananart, 05/23/2009 prn 2 Radha, 9 M.D. . 1 Lyrica 04/12/2009 - Hx Capsules 75mg 180cap 1 po bid 7 Thananart, 05/23/2009 s 2 Radha, 9 M.D. . 1 Hydrocodone-Acetamin 03/29/2009 - Hx 10-325mg 120uni one tablet Thananart, ophen 03/29/2009 ts po qid prn Marissa Garcia Hydrocodone-Acetamin 03/29/2009 - Hx Tablets 10-325mg 120tab 1 tab po q6h David ophen 10/15/2016 s (pt states [place], she takes M.D. routinely every 4 hours) Baclofen 02/07/2009 - Hx Tablets 10mg 42tabs 1-2 tab po 7 Thananart, 08/07/2009 tid prn 2 Radha, 9 M.D. . 1 Clonazepam 12/07/2008 - Hx Tablets 2mg 60tabs 1 tablet po 3 Bobbi 08/07/2009 bid 0 Cotton, 0 M.D. . 0 2 Percocet 12/07/2008 - Hx Tablets 10-325mg 80tabs 1 q4h prn Thananart, 03/29/2009 Marissa Garcia Tizanidine HCL 12/07/2008 - Hx Tablets 4mg 120tab 1 po q6h Thananart, 07/20/2009 steve Garcia M.D. Amitriptyline HCL 12/07/2008 - Hx Tablets 50mg 90tabs 1 tab po tid Boo Lennon 04/25/2010 Marissa Batres Fosamax 12/07/2008 - Hx Tablets 70mg 12tabs one tablet Boo ELadarius 03/04/2013 weekly Marissa Batres Diazepam 12/07/2008 - Hx Tablets 10mg 120tab 1 po tid Thananart, 04/25/2009 steve Garcia M.D. Propranolol HCL 12/07/2008 - Hx Tablets 10mg 180tab 1 po bid Boo ELadarius 02/13/2010 steve Batres M.D. Furosemide 12/07/2008 - Hx Tablets 20mg 60tabs 1 po bid Thananart, 02/13/2010 Marissa Garcia Slow Fe 12/07/2008 - Hx Tablets ER 160mg 1 po qd 5x Thananart, 11/18/2011 week Marissa Garcia Calcium/Vitamin D 12/07/2008 - Hx Tablets 500mg 60tabs 1 po bid Thananart, 10/13/2016 Marissa Garcia Vit C 12/07/2008 - Hx Tablets 250mg 2 po qd Thananart, 02/13/2010 Marissa Garcia Lyrica - Hx Capsules 75mg 180cap 2 tabs po Thananart, 08/07/2009 s [facility] Marissa Garcia Tizanidine HCL - Hx Tablets 4mg 90tabs 1 in am, 1 Unknown 10/23/2011 in pm Savella Titration - Hx Misc 12.5&25&5 as directed Unknown Pack 03/27/2011 0mg samples Vit A - Hx 8000U 2 tab po bid Unknown 10/13/2016 Ciprofloxacin HCL - Hx Tablets 500mg 14tabs 1 po bid Unknown 06/04/2010 Amitriptyline HCL - Hx 50mg 90unit 1 by mouth Boo Lennon 10/28/2017 s three times Gisel, a day Marissa Flexeril - Hx Tablets 10mg 60tabs 1 po every 6 Unknown 09/25/2015 hrs Stool Softener - Hx Capsules 100mg 2 po tid Unknown 07/21/2016 Tizanidine HCL - Hx Tablets 4mg 120tab 1 po tid Unknown 01/28/2012 s Proair HFA - Hx Aerosol 108(90Bas 1units 2 puffs by Unknown 09/19/2014 e) mouth every mcg/Act 4 hours as needed Magnesium W/Calcium - Hx 1 po tid Unknown 10/13/2016 Hydrocodone-Acetamin - Hx Tablets 10-325mg Unknown ophen 07/29/2015 Topamax - Hx Tablets 25mg 1 by mouth Unknown 03/11/2016 once a day ( no longer taking) Fosamax - Hx Tablets 70mg one tablet Unknown 09/25/2015 weekly Nyquil Severe - Hx prn Unknown Cold/Flu 10/13/2016 Zinc - Hx 80mg one tab bid Unknown 10/13/2016 Methylprednisolone - Hx TBPK 4mg Unknown 05/07/2016 Meloxicam - Hx Tablets 7.5mg take 1 tab Unknown 06/26/2016 by mouth bid Laxative - Hx Tablets 25mg 1 tab by Unknown 02/04/2018 mouth as needed Meloxicam - Hx Tablets 7.5mg take 1 tab Unknown 10/13/2016 by mouth twice daily with food Slow Fe - Hx Tablets ER 142(45Fe) 1 by mouth Unknown 10/13/2016 mg every day Potassium Chloride - Hx Capsules ER 10Meq 90caps 1 by mouth Caleb ER 10/21/2016 every day Carlene Portillo, maeve as of Marissa 4..17 Furosemide - Hx Tablets 20mg 90tabs 1 by mouth Caleb 11/07/2016Mondays, Carlene Portillo, Wednesdays, Marissa Fridays - restart 10/21/16(patie nt did not start, needs Rx) Ascorbic Acid - Hx Tablets 500mg 1 by mouth Unknown 10/13/2016 every day Ferrous Gluconate - Hx Tablets 324(38Fe) take 1 Unknown 10/13/2016 mg tablet by mouth two times daily Alprazolam - Hx Tablets 0.25mg one by mouth Unknown 02/09/2018 up to three times daily as needed for anxiety Ventolin HFA - Hx Aerosol 108(90Bas 2 puffs by Unknown 02/04/2018 e) mouth four mcg/Act times a day as needed (not using ) Warfarin Sodium - Hx Tablets 1mg 90tabs as directed Anitra 12/17/2016 based on Yas, results of Marissa patients Inr Acetaminophen - Hx Tablets 325mg as needed Unknown 03/23/2017 Amlodipine Besylate - Hx Tablets 10mg 90tabs 1 by mouth Caleb 11/07/2016 every day maeve Roman as of Marissa 4.25.17 Hydrocodone-Acetamin - Hx Tablets 10-325mg 1 po q 4 hrs Unknown ophen 02/09/2018 (mmd 5) Folic Acid - Hx Tablets 1mg take one Unknown 03/22/2017 capsule/tabl et daily by mouth (not presently taking) Advair Diskus - Hx Aerosol 100-50mcg 1 inhalation Unknown 02/09/2018 /Dose twice daily Hair Skin And Nails - Hx Tablets 2 po qd Unknown Formula 08/22/2017 Diltiazem CD - Hx Caps ER 24HR 360mg 90caps 1 by mouth Sophy S. 02/14/2018 every day Shelton N.P. Ibuprofen - Hx Capsules 200mg as needed Unknown 02/09/2018 every 6 hrs Medications Administered in Office Medication Date Status [...] CPT Code Status Date Vaccine Lot # [id number] Given 03/24/2017 Influenza Virus Vaccine, Quadrivalent, Split, Preservative Free [id number] Given 03/24/2017 Pneumococcal Conjugate Vaccine 13 Valent For Intramuscular Use 94841 Given 04/30/2016 Influenza Virus Vaccine, Quadrivalent, Split [id number] Virus, Im Use 70767 Given 06/25/2015 Influenza Virus Vaccine, Quadrivalent, Split, [id number] Preservative Free 28396 Given 09/19/2014 Pneumococcal Conjugate Vaccine 13 Valent For [id number] Intramuscular Use 28398 Given 07/28/2013 Tdap - Tetanus/Diptheria/Acellular Pertussis [id number] 29188 Given 03/11/2013 Pneumonia Vaccine [id number] 01340 Given 03/11/2013 Flu Vaccine Split Virus Preservative Free For [id number] Indiv 3Yr Older [id number] Given 03/27/2011 Fluzone Vaccine [id number] 48548 Given 05/24/2009 Influenza Virus Vaccine, Pandemic Formulation [id number] 47706 Given 05/24/2009 Administration Swine Flu Shot 38990 Given 06/24/2004 Td Toxoids Adsorbed For Use [id number] Or Older For Intramuscular Use Vital Signs Date Vital Result Comment 02/12/2018 Height 65 inches 5'5" Weight 149.00 lb w/o shoes BP Systolic Sitting 134 mmHg Lue reg cuff BP Diastolic Sitting 78 mmHg Lue reg cuff BMI (Body Mass Index) 24.8 kg/m2 Ejection Fraction > 65% Echo 09/24/17 02/10/2018 Height 65 inches 5'5" Weight 149.00 lb W/ Shoes BP Systolic Sitting 130 mmHg Lue Reg Cuff BP Diastolic Sitting 78 mmHg Lue Reg Cuff BMI (Body Mass Index) 24.8 kg/m2 Ejection Fraction GREATER 6% ECHO 09/24/17 02/05/2018 Height 65 inches 5'5" Weight 151.00 lb Heart Rate 61 /min BP Systolic Sitting 122 mmHg BP Diastolic Sitting 58 mmHg O2 % BldC Oximetry 95 % BMI (Body Mass Index) 25.1 kg/m2 12/15/2017 Weight 156.00 lb Heart Rate 74 /min BP Systolic 135 mmHg BP Diastolic 72 mmHg Respiratory Rate 17 /min Ejection Fraction 65% 09/24/2017 echo 11/02/2017 Weight 158.00 lb Heart Rate 142 [...] Test Date Test Result H/L Range Note Order 02/26/2018 Echocardiogram <pending> Laboratory test finding 01/06/2018 Troponin-I (TnI) 0.04 ng/mL High <0.04 1 CBC Auto Diff 01/06/2018 White Blood Count 9.3 10^3/uL 3.5-10.8 Red Blood Count 3.66 10^6/uL Low 4.00-5.40 Hemoglobin 10.2 g/dL Low 12.0-16.0 Hematocrit 32 % Low 35-47 Mean Corpuscular Volume 87 fL 80-97 Mean Corpuscular Hemoglobin 28 pg 27-31 Mean Corpuscular HGB Conc 32 g/dL 31-36 Red Cell Distribution Width 15 % 10.5-15 Platelet Count 172 10^3/uL 150-450 Mean Platelet Volume 9.1 um3 7.4-10.4 Abs Neutrophils 6.2 10^3/uL 1.5-7.7 Abs Lymphocytes 2.1 10^3/uL 1.0-4.8 Abs Monocytes 0.7 10^3/uL 0-0.8 Abs Eosinophils 0.1 10^3/uL 0-0.6 Abs Basophils 0.1 10^3/uL 0-0.2 Abs Nucleated RBC 0 10^3/uL Granulocyte % 66.8 % 38-83 Lymphocyte % 23.0 % Low 25-47 Monocyte % 7.7 % High 0-7 Eosinophil % 1.5 % 0-6 Basophil % 1.0 % 0-2 Nucleated Red Blood Cells % 0 Inr/Protime 01/06/2018 Inr 1.17 High 0.77-1.02 Laboratory test finding 01/06/2018 Partial Thrombo Time 32.6 seconds 26.0 -36.3 PTT B-Type Natriuretic Peptide BNP 680 pg/mL High 2 Lactic Acid 0.5 mmol/L 0.5-2.0 3 Troponin-I (TnI) 0.04 ng/mL High <0.04 4 Comp Metabolic Panel 01/06/2018 Sodium 141 mmol/L 135-145 Potassium 4.2 mmol/L 3.5-5.0 Co2 Carbon Dioxide 23 mmol/L 22-32 Glucose 89 mg/dL 70-100 Blood Urea Nitrogen 24 mg/dL 6-24 Creatinine 1.24 mg/dL High 0.51-0.95 BUN/Creatinine Ratio 19.4 8-20 Calcium 8.9 mg/dL 8.6-10.3 Total Protein 6.0 g/dL Low 6.4-8.9 Albumin 3.3 g/dL 3.2-5.2 Globulin 2.7 g/dL 2-4 Albumin/Globulin Ratio 1.2 1-3 Total Bilirubin 0.20 mg/dL 0.2-1.0 Alkaline Phosphatase 105 U/L High 34-104 Alt 18 U/L 7-52 Ast 13 U/L 13-39 Egfr Non- 42.6 >60 Egfr 51.6 >60 5 Chloride 113 mmol/L High 101-111 Anion Gap 5 mmol/L 2-11 Laboratory test finding 01/06/2018 Procalcitonin < 0.1 ng/mL <0.6 6 D Dimer Quantitative 260 ng/mL High Less Than 230 7 Magnesium 1.9 mg/dL 1.9-2.7 8 TSH (Thyroid Stim Horm) 1.06 mcIU/mL 0.34-5.60 9 Urine Culture And 11/07/2017 Urine Culture SEE RESULT BELOW 10 Sensitivities Inr/Protime 11/07/2017 Inr 1.05 High 0.77-1.02 CBC Auto Diff 11/07/2017 White Blood Count 11.8 10^3/uL High 3.5-10.8 Red Blood Count 3.85 10^6/uL Low 4.0-5.4 Hemoglobin 11.6 g/dL Low 12.0-16.0 Hematocrit 36 % 35-47 Mean Corpuscular Volume 93 fL 80-97 Mean Corpuscular Hemoglobin 30 pg 27-31 Mean Corpuscular HGB Conc 33 g/dL 31-36 Red Cell Distribution Width 15 % 10.5-15 Platelet Count 144 10^3/uL Low 150-450 Mean Platelet Volume 9.4 um3 7.4-10.4 Abs Neutrophils 9.3 10^3/uL High 1.5-7.7 Abs Lymphocytes 1.6 10^3/uL 1.0-4.8 Abs Monocytes 0.8 10^3/uL 0-0.8 Abs Eosinophils 0 10^3/uL 0-0.6 Abs Basophils 0.1 10^3/uL 0-0.2 Abs Nucleated RBC 0 10^3/uL Granulocyte % 78.6 % 38-83 Lymphocyte % 13.5 % Low 25-47 Monocyte % 6.8 % 0-7 Eosinophil % 0.4 % 0-6 Basophil % 0.7 % 0-2 Nucleated Red Blood Cells % 0 Laboratory test finding 11/07/2017 Lactic Acid 0.7 mmol/L 0.5-2.0 11 B-Type Natriuretic Peptide BNP 206 pg/mL High 12 Comp Metabolic Panel 11/07/2017 Sodium 142 mmol/L 139-145 Potassium 3.8 mmol/L 3.5-5.0 Chloride 111 mmol/L 101-111 Co2 Carbon Dioxide 23 mmol/L 22-32 Anion Gap 8 mmol/L 2-11 Glucose 129 mg/dL High 70-100 Blood Urea Nitrogen 29 mg/dL High 6-24 Creatinine 0.96 mg/dL High 0.51-0.95 BUN/Creatinine Ratio 30.2 High 8-20 Calcium 8.8 mg/dL 8.6-10.3 Total Protein 5.8 g/dL Low 6.4-8.9 Albumin 3.2 g/dL 3.2-5.2 Globulin 2.6 g/dL 2-4 Albumin/Globulin Ratio 1.2 1-3 Total Bilirubin 0.30 mg/dL 0.2-1.0 Alkaline Phosphatase 104 U/L 34-104 Alt 24 U/L 7-52 Ast 18 U/L 13-39 Egfr Non- 57.3 >60 Egfr 73.7 >60 13 Laboratory test finding 11/07/2017 Magnesium 2.0 mg/dL 1.9-2.7 C Reactive Protein 17.70 mg/L High < 5.00 14 Troponin-I (TnI) 0.16 ng/mL High <0.04 15 TSH (Thyroid Stim Horm) 0.91 mcIU/mL 0.34-5.60 Urinalysis Profile 11/07/2017 Urine Color Ilana Urine Appearance Turbid Urine Specific [place] 1.021 1.010-1.030 Urine pH 7.0 5-9 Urine Urobilinogen Negative Negative Urine Ketones Negative Negative Urine Protein 2+(100 mg/dL) Negative Urine Leukocytes 3+ Negative Urine Blood Negative Negative * * Negative 16 Urine Nitrite Negative Negative Urine Bilirubin Negative Negative Urine Glucose Negative Negative Urine White Blood Cell 3+(>20/hpf) Absent Urine Red Blood Cell Trace(0-2/hpf) Absent Urine Bacteria 1+ Absent Urine Squamous Epithelial Cell Present Absent Urine Transitional Epithelial Present Absent Urine Hyaline Casts Present Absent Urine Triple Phosphate Cryst Present Absent Urine Calcium Oxalate Cryst Present Absent CBC Auto Diff 09/23/2017 White Blood Count [...] finding 09/23/2017 Lactic Acid 0.6 mmol/L 0.5-2.0 17 Inr/Protime 09/23/2017 Inr 0.90 0.77-1.02 Laboratory test finding 09/23/2017 Partial Thrombo Time 27.0 seconds 26.0 -36.3 PTT Comp Metabolic Panel 09/23/2017 Sodium 136 mmol/L [...] Egfr Non- 28.5 >60 Egfr 36.7 >60 18 Laboratory test finding 09/23/2017 Magnesium 3.0 mg/dL High 1.9-2.7 Lipase 27 U/L 11.0-82.0 C Reactive Protein 26.57 mg/L High < 5.00 19 Troponin-I (TnI) 0.09 ng/mL High <0.04 20 TSH (Thyroid Stim Horm) 2.02 mcIU/mL 0.34-5.60 Type & Screen 09/23/2017 Patient Blood Type A Positive Antibody Screen NEGATIVE Inr/Protime 03/03/2017 Inr 0.88 Low 0.89-1.11 Laboratory test finding 03/03/2017 B-Type Natriuretic 259 pg/mL High 21 Peptide BNP Iron & Iron Binding 03/03/2017 Iron 34 g/dL Low 50-212 Capacity Unsaturated Iron Binding 277 g/dL Total Iron Binding Capacity 311 g/dL 250-450 % Iron Saturation 11 % Low 15-55 Laboratory test 03/03/2017 TSH (Thyroid Stim Horm) 2.36 mcIU/mL 0.34- 5.60 finding Lipid Profile 03/03/2017 Triglycerides 90 mg/dL 22 (Trig/Chol/HDL) Cholesterol 181 mg/dL 23 HDL Cholesterol 73.3 mg/dL 24 LDL Cholesterol 90 mg/dL 25 Comp Metabolic Panel 03/03/2017 Sodium 141 mmol/L [...] Egfr Non- 54.8 >60 Egfr 70.5 >60 26 Lipid Panel - [facility] 03/03/2017 Creatine Kinase(CK) 61 U/L 10-223 CBC Auto Diff 03/03/2017 White Blood Count [...] 0-2 Nucleated Red Blood Cells % 0.1 Protime W/ Inr 12/17/2016 Prothrombin Time 20.7 Inr 1.7 Protime W/ Inr 12/10/2016 Prothrombin Time 19.8 Inr 1.7 Protime W/ Inr 11/26/2016 Prothrombin Time 23.9 Inr 2.0 Protime W/ Inr 11/19/2016 Prothrombin Time 34.9 Inr 2.9 Inr/Protime 11/13/2016 Inr 3.22 High 0.89-1.11 Laboratory test finding 11/10/2016 B-Type Natriuretic 262 pg/mL High 27 Peptide BNP Basic Metabolic Panel 11/10/2016 Sodium 137 mmol/L 133-145 Potassium 4.4 mmol/L 3.5-5.0 Chloride 105 mmol/L 101-111 Co2 Carbon Dioxide 25 mmol/L 22-32 Anion Gap 7 mmol/L 2-11 Glucose 85 mg/dL 70-100 Blood Urea Nitrogen 12 mg/dL 6-24 Creatinine 0.88 mg/dL 0.51-0.95 BUN/Creatinine Ratio 13.6 8-20 Calcium 9.4 mg/dL 8.6-10.3 Egfr Non- 63.5 >60 Egfr 81.7 >60 28 Inr/Protime 11/10/2016 Inr 2.51 High 0.89-1.11 CBC Auto Diff 11/10/2016 White Blood Count [...] test finding 11/10/2016 Magnesium 1.9 mg/dL 1.9-2.7 29 Inr/Protime 11/06/2016 Inr 1.40 High 0.89-1.11 Inr/Protime 10/30/2016 Inr 1.48 High 0.89-1.11 Protime W/ Inr 10/27/2016 Inr 2.7 Protime W/ Inr 2016 Inr 1.5 Protime W/ Inr 10/20/2016 Inr 1.2 Protime W/ Inr 10/16/2016 Inr 1.5 Inr/Protime 10/16/2016 Inr 1.44 High 0.89-1.11 Iron & Iron Binding Capacity 10/16/2016 Iron 28 g/dL Low 50-212 Unsaturated Iron Binding 252 g/dL Total Iron Binding Capacity 280 g/dL 250-450 % Iron Saturation 10 % Low 15-55 Laboratory test finding 10/16/2016 B-Type Natriuretic Peptide BNP 370 pg/mL High 30 Magnesium 2.1 mg/dL 1.9-2.7 Basic Metabolic Panel 10/16/2016 Sodium 139 mmol/L 133-145 Potassium 5.0 mmol/L 3.5-5.0 Chloride 107 mmol/L 101-111 Co2 Carbon Dioxide 22 mmol/L 22-32 Anion Gap 10 mmol/L 2-11 Glucose 75 mg/dL 70-100 Blood Urea Nitrogen 31 mg/dL High 6-24 Creatinine 1.26 mg/dL High 0.51-0.95 BUN/Creatinine Ratio 24.6 High 8-20 Calcium 9.3 mg/dL 8.6-10.3 Egfr Non- 42.1 >60 Egfr 54.1 >60 31 CBC Auto Diff 10/16/2016 White Blood Count [...] 0-2 Nucleated Red Blood Cells % 0 CBC Auto Diff 10/07/2016 White Blood Count [...] Egfr Non- 58.3 >60 Egfr 75.0 >60 32 Protime W/ Inr 10/07/2016 Prothrombin Time 12.0 Inr 1.0 Laboratory test finding 09/22/2016 Troponin-I (TnI) 0.90 ng/mL High <0.04 33 Venous Blood Gas 09/05/2016 Venous Blood pH 7.32 Low 7.33-7.43 34 Venous Pco2 46 mmHg 41-51 34 Venous Po2 34 mmHg Low 35-45 34 Venous O2 Saturation 65.7 % Low 70-80 34 Venous Blood Base Excess -2.5 Low 0-4 34, 35 Venous Bicarbonate Hco3 22.2 mmol/L Low 24-28 34 Venous Blood Gas 09/05/2016 Venous Blood pH 7.32 Low 7.33-7.43 36 Venous Pco2 48 mmHg 41-51 36 Venous Po2 35 mmHg 35-45 36 Venous O2 Saturation 65.7 % Low 70-80 36 Venous Blood Base Excess -1.7 Low 0-4 36, 37 Venous Bicarbonate Hco3 22.8 mmol/L Low 24- 36 Venous Blood Gas 09/05/2016 Venous Blood pH 7.32 Low 7.33-7.43 38 Venous Pco2 47 mmHg 41-51 38 Venous Po2 37 mmHg 35-45 38 Venous O2 Saturation 70.6 % 70-80 38 Venous Blood Base Excess -2.1 Low 0-4 38, 39 Venous Bicarbonate Hco3 22.6 mmol/L Low 24- 38 Arterial Blood Gas 09/05/2016 PH Arterial 7.34 Low 7.35-7.45 40 Pco2 Arterial 43 mmHg 35-45 40 Po2 Arterial 63 mmHg Low 80-100 40 O2 Saturation Arterial 89.4 % Low 95-98 40 Base Excess Arterial -2.6 Low -2.0-2.0 40, 41 Hco3 Arterial 22.7 mmol/L 19-31 40 Cath Panel 09/02/2016 Partial Thrombo Time PTT 30.7 seconds 26.0-36.3 CBC Auto Diff 09/02/2016 White Blood Count [...] 0-2 Nucleated Red Blood Cells % 0.2 Inr/Protime 09/02/2016 Inr 0.86 Low 0.89-1.11 Basic Metabolic Panel 09/02/2016 Sodium 133 mmol/L 133-145 Potassium 4.7 mmol/L 3.5-5.0 Chloride 103 mmol/L 101-111 Co2 Carbon Dioxide 26 mmol/L 22-32 Anion Gap 4 mmol/L 2-11 Glucose 96 mg/dL 70-100 Blood Urea Nitrogen 20 mg/dL 6-24 Creatinine 1.11 mg/dL High 0.51-0.95 BUN/Creatinine Ratio 18.0 8-20 Calcium 9.1 mg/dL 8.6-10.3 Egfr Non- 48.7 >60 Egfr 62.7 >60 42 Order 03/05/2016 EKG <pending> Vitamin B12 And Folate Serum 08/24/2015 Vitamin B12 628 pg/mL 180-914 43 Folic Acid (Folate) > 20.00 ng/mL >3.99 [...] Egfr Non- 50.5 >60 Egfr 64.9 >60 44 Lipid Profile (Trig/Chol/HDL) 08/10/2015 Triglycerides 80 mg/dL 45 Cholesterol 190 mg/dL 46 HDL Cholesterol 81.4 mg/dL 47 LDL Cholesterol 93 mg/dL 48 Laboratory test finding 08/10/2015 Magnesium 2.1 mg/dL 1.9-2.7 Creatine Kinase(CK) 43 U/L 10-223 TSH (Thyroid Stim Horm) 0.92 ?IU/mL 0.34-5.60 Basic Metabolic Panel 03/20/2015 Sodium 132 mmol/L Low 133-145 Potassium 4.6 mmol/L 3.5-5.0 Chloride 103 mmol/L 101-111 Co2 Carbon Dioxide 23 mmol/L 22-32 Anion Gap 6 mmol/L 2-11 Glucose 78 mg/dL 70-100 Blood Urea Nitrogen 20 mg/dL 6-24 Creatinine 1.12 mg/dL High 0.51-0.95 BUN/Creatinine Ratio 17.9 8-20 Calcium 8.9 mg/dL 8.6-10.3 Egfr Non- 48.4 >60 Egfr 62.2 >60 49 CBC No Diff 03/20/2015 White Blood Count 8.8 10^3/uL 4.8-10.8 Red Blood Count 4.26 10^6/uL 4.0-5.4 Hemoglobin 13.3 g/dL 12.0-16.0 Hematocrit 42 % 35-47 Mean Corpuscular Volume 98 fL High 80-97 Mean Corpuscular Hemoglobin 31 pg 27-31 Mean Corpuscular HGB Conc 32 g/dL 31-36 Red Cell Distribution Width 14 % 10.5-15 Platelet Count 229 10^3/uL 150-450 Mean Platelet Volume 9 um3 7.4-10.4 Lipid Profile (Trig/Chol/HDL) 11/03/2014 Triglycerides 101 mg/dL 50 Cholesterol 155 mg/dL 51 HDL Cholesterol 64.2 mg/dL 52 LDL Cholesterol 71 mg/dL 53 Comp Metabolic Panel 11/03/2014 Sodium 138 mmol/L [...] Egfr Non- 62.3 >60 Egfr 80.1 >60 54 Lipid Panel - [facility] 11/03/2014 Creatine Kinase(CK) 55 U/L 10-223 55 CBC Auto Diff 11/03/2014 White Blood Count [...] 0-2 Nucleated Red Blood Cells % 0.1 Laboratory test finding 03/22/2013 Hepatitis C Antibody Nonreactive Nonreactive Lipid Profile 03/22/2013 Triglycerides 98 mg/dL 40-200 (Trig/Chol/HDL) Cholesterol 193 mg/dL Less than 200 HDL Cholesterol 84 mg/dL High 40-60 56 Cholesterol/HDL Ratio 2.3 Average 1-4.44 LDL Cholesterol 92.4 Less Than 100 57 Comp Metabolic Panel 03/22/2013 Sodium 137 mmol/L [...] Egfr Non- 55.5 >60 Egfr 71.3 >60 58 CBC Auto Diff 03/22/2013 White Blood Count [...] Blood Cells % 0.1 Lipid Profile (Trig/Chol/HDL) 01/26/2012 Triglyceride 95 mg/dL 40-200 Cholesterol 189 mg/dL Less Than 200 59 High Density Lipoprotein 70 mg/dL High 40-60 60 Cholesterol/HDL Ratio 2.70 AVERAGE 1-4.44 Low Density Lipoprotein 100 mg/dL Less Than 100 61 Laboratory test finding 01/26/2012 Ast (Sgot) 17 U/L 12-42 Alt (SGPT) 16 U/L 14-54 Manual Differential 10/27/2011 Polysegmented Neutrophil 79 % 38-83 Lymphocyte 16 % Low 25-47 Monocyte 5 % 0-13 Absolute Neutrophil Count 9.70 Anisocytosis SLIGHT CBC Auto Diff 10/27/2011 White Blood Count [...] 150-450 Mean Platelet Volume 8.9 um3 7.4-10.4 62 Lipid Profile (Trig/Chol/HDL) 10/27/2011 Triglyceride 155 mg/dL 40-200 Cholesterol 272 mg/dL High Less Than 200 63 High Density Lipoprotein 62 mg/dL High 40-60 64 Cholesterol/HDL Ratio 4.39 AVERAGE 1-4.44 Low Density Lipoprotein 179 mg/dL High Less Than 100 65 Comp Metabolic Panel 10/27/2011 Sodium 135 mmol/L 135-145 Potassium 4.7 mmol/L 3.5-5.0 Chloride 107 mmol/L 101-111 Co2 (Carbon Dioxide) 23.0 mmol/L 22-32 Anion Gap 5.0 mmol/L 2-11 66 Glucose 101 mg/dL High 70-100 BUN 12 mg/dL 6-24 Creatinine 1.1 mg/dL 0.50-1.40 One Over Creatinine 0.90 BUN/Creatinine Ratio 10.9 8-20 Calcium 9.0 mg/dL 8.1-9.9 Total Protein 6.0 GM/DL Low 6.2-8.1 Albumin 3.6 GM/DL 3.2-5.2 Globulin 2.4 GM/DL 2-4 Albumin/Globulin Ratio 1.5 1-3 Bilirubin Total 0.5 mg/dL 0.4-1.5 67 Alkaline Phosphatase 95 U/L 30-110 Alt (SGPT) 19 U/L 14-54 Ast (Sgot) 18 U/L 12-42 eGFR Non- 49.8 > 60 eGFR 64.1 > [address] Batres's Lab Panel 10/27/2011 TSH 0.97 MIU/ML 0.34-5.60 Urinalysis W/Microscopic 07/31/2011 Ua Color YELLOW Yellow Appearance-Urine TURBID Clear Specific [place]-Ur 1.018 1.010-1.030 Esterase-Urine 3+ Negative Nitrite NEGATIVE Negative Cntnfiyjqecw-Ti-EGI NEGATIVE Negative Protein-Urine TRACE Negative PH-Urine 6.0 5-9 Blood-Urine 1+ Negative Ketones-Urine NEGATIVE Negative Bilirubin-Ur NEGATIVE Negative Glucose-Urine NEGATIVE Negative RBC-Urine 0-3 0-2 Epith Cells-Ur MODERATE None WBC-Urine TNTC 0-5 Bacteria-Urine 3+ None Urine Culture & Sensitivi 07/31/2011 M <SEE NOTE> 69 Basic Metabolic Panel 01/24/2010 Sodium 136 mmol/L 135-145 70 Potassium 4.8 mmol/L 3.5-5.0 70 Chloride 105 mmol/L 101-111 70 Co2 (Carbon Dioxide) 24.0 mmol/L 22-32 70 Anion Gap 7.0 mmol/L 2-11 70, 71 Glucose 97 mg/dL 70-100 70, 72 BUN 12 mg/dL 6-24 70 Creatinine 1.10 mg/dL 0.50-1.40 70 One Over Creatinine 0.90 70 BUN/Creatinine Ratio 10.9 8-20 70 Calcium 9.1 mg/dL 8.1-9.9 70, 73 eGFR Non- 53.3 > 60 70 eGFR 64.5 > 60 70, 74 Urine Culture & 01/24/2010 Urine Culture ESCHERICHIA COLI 70, 75 Sensitivi Sensitivi Urinalysis 01/24/2010 Ua Color YELLOW Yellow 70 W/Microscopic Appearance-Urine CLEAR Clear 70 Specific [place]-Ur 1.010 1.010-1.030 70 Esterase-Urine 3+ Negative 70 Nitrite POSITIVE Negative 70 Fwglknucxwop-Cj-OWN NEGATIVE Negative 70 Protein-Urine NEGATIVE Negative 70 PH-Urine 5.5 5-9 70 Blood-Urine NEGATIVE Negative 70 Ketones-Urine NEGATIVE Negative 70 Bilirubin-Ur NEGATIVE Negative 70 Glucose-Urine NEGATIVE Negative 70 WBC-Urine TNTC 0-5 70 RBC-Urine NONE SEEN 0-2 70 Epith Cells-Ur NONE None 70 Bacteria-Urine 3+ None 70 Ursc-1 01/24/2010 Ampicillin <=2 70 Amikacin <=2 70 Ciprofloxacin <=0.25 70 Ceftriaxone <=1 70 Cefazolin <=4 70 Nitrofurantoin <=16 70 Gentamicin <=1 70 Imipenem <=1 70 Levofloxacin <=0.12 70 Trimeth-Sulfa <=20 70 Ceftazidime <=1 70 Tigecycline <=0.5 70 Piperacillin/Tazobactam <=4 70 CBC With Manual Diff 01/24/2010 White Blood Count 11.1 CUMM High 4.8-10.8 70 Red Cell Count 3.72 CUMM Low 4.2-5.4 70 Hemoglobin 12.1 g/dL 12.0-16.0 70 Hematocrit 36 % 35-47 70 Mean Corpuscular Volume 96 um3 79-97 70 Mean Corpuscular Hemoglob 33 pg High 27-31 70 Mean Corpuscular HGB Cone 34 g/dL 32-36 70 Redcell Distribution WDTH 13 % 10.5-15 70 Platelet Count 363 CUMM 150-450 70 Mean Platelet Volume 7.1 um3 Low 7.4-10.4 70 Polysegmented Neutrophil 67 % 38-83 70 Lymphocyte 22 % Low 25-47 70 Monocyte 4 % 0-13 70 Basophil 1 % 0-2 70 Atypical Lymph 6 % 0-6 70 Absolute Neutrophil Count 7.4 70 Anisocytosis SLIGHT 70 Toxic Granulation SLIGHT 70 Urine Culture & Sensitivi 01/17/2010 Urine Culture Sensitivi SN2 76 Urinalysis W/Microscopic 01/17/2010 Ua Color YELLOW Yellow Appearance-Urine CLEAR Clear Specific [place]-Ur 1.011 1.010-1.030 Esterase-Urine 2+ Negative Nitrite NEGATIVE Negative Emqgcswkbdrw-Lo-KMO NEGATIVE Negative Protein-Urine NEGATIVE Negative PH-Urine 5.5 5-9 Blood-Urine NEGATIVE Negative Ketones-Urine NEGATIVE Negative Bilirubin-Ur NEGATIVE Negative Glucose-Urine NEGATIVE Negative WBC-Urine TNTC 0-5 RBC-Urine 0-2 0-2 Epith Cells-Ur RARE None Bacteria-Urine TRACE None CBC With Manual Diff 12/26/2009 White Blood [...] 0-6 Absolute Neutrophil Count 10.0 Anisocytosis SLIGHT Laboratory test finding 12/26/2009 TSH 2.29 MIU/ML 0.34-5.60 Comp Metabolic Panel 12/26/2009 Sodium 133 mmol/L Low 135-145 Potassium 4.5 mmol/L 3.5-5.0 Chloride 102 mmol/L 101-111 Co2 (Carbon Dioxide) 24.0 mmol/L 22-32 Anion Gap 7.0 mmol/L 2-11 77 Glucose 98 mg/dL 70-100 78 BUN 13 mg/dL 6-24 Creatinine 1.50 mg/dL High 0.50-1.40 One Over Creatinine 0.60 BUN/Creatinine Ratio 8.7 8-20 Calcium 9.2 mg/dL 8.1-9.9 79 Total Protein 5.7 GM/DL Low 6.2-8.1 Albumin 3.8 GM/DL 3.2-5.2 Globulin 1.9 GM/DL Low 2-4 Albumin/Globulin Ratio 2.0 1-3 Bilirubin Total 1.0 mg/dL 0.4-1.5 80 Alkaline Phosphatase 84 U/L 30-110 Alt (SGPT) 15 U/L 14-54 Ast (Sgot) 17 U/L 12-42 eGFR Non- 37.3 > 60 eGFR 45.1 > 60 81 Drug Screen, Urine 09/28/2009 Amphetamines Urine NONE DETECTED None Detect Outpatient Screen Barbituates Urine Screen NONE DETECTED None Detect Cannabinoid Urine Screen NONE DETECTED None Detect Cocaine Metabolites Urine NONE DETECTED None Detect Urine Opiates NONE DETECTED 82 Urine Opiates 08/28/2009 Urine Opiates Screen Positive () 83 Urine Codeine By GC/MS Negative ng/mL () 84 Urine Hydrocodone By GC/MS 596 ng/mL () 85 Urine Hydromophone By GC/MS 199 ng/mL () 86 Urine Morphine By GC/MS Negative ng/mL () 87 Urine Oxycodone By GC/MS 666 ng/mL () 88 Urine Opiates Interpretation Positive () 89 Urine Drug Screen M-20 08/28/2009 Urine Alcohol Negative mg/dL Cutoff: 30 Urine Ampetamines Negative ng/mL () 90 Urine Barbiturates Negative ng/mL () 91 Urine Benzodiazepines Negative ng/mL () 92 Urine Cocaine Negative ng/mL () 93 Urine Methadone Negative ng/mL () 94 Urine Opiates Reflex* ng/mL () 95 Urine Phencyclidine Negative ng/mL Cutoff: 25 Urine Propoxyphene Negative ng/mL () 96 Urine Tetrahydrocannabinol Negative ng/mL Cutoff: 20 97 CBC With Manual Diff 04/18/2009 White Blood [...] mmol/L 22-32 Anion Gap 5.0 mmol/L 2-11 98 Glucose 100 mg/dL 70-100 99 BUN 14 mg/dL 6-24 Creatinine 1.00 mg/dL 0.50-1.40 One Over Creatinine 1.00 BUN/Creatinine Ratio 14.0 8-20 Calcium 9.2 mg/dL 8.1-9.9 100 Total Protein 6.4 GM/DL 6.2-8.1 Albumin 3.9 GM/DL 3.2-5.2 Globulin 2.5 GM/DL 2-4 Albumin/Globulin Ratio 1.6 1-3 Bilirubin Total 0.7 mg/dL 0.4-1.5 101 Alkaline Phosphatase 77 U/L 30-110 Alt (SGPT) 21 U/L 14-54 Ast (Sgot) 22 U/L 12-42 eGFR Non- 59.7 > 60 eGFR 72.3 > 60 102 1 Result TnIDx:0.04 Called to POOL at: 12:21:39 by:[id number] Read back by: [id number] 2 >100 to <200 pg/mL: likely compensated congestive heart failure (CHF) 200 to 400 pg/mL: likely moderate CHF >400 pg/mL: likely moderate to severe CHF 3 [facility] Severe Sepsis and Septic Shock Management Bundle Measure requires all lactic acids initially measuring >2.0 mmol/L be repeated. 4 Result TnIDx:0.04 Called to [employer] at: 11:01:44 by:[id number] Read back by: [id number] 5 Because ethnic data is not always [...] 5 Kidney failure <15 (or dialysis) 6 Interpretive information available on [facility] Test Catalog at [email or web address] 7 Please note: The following may produce a false positive D Dimer test: - Rheumatoid factor greater than 60 IU/ml - Plasma hemoglobin greater than 0.05 gm/dl - Bilirubin greater than 50 mg/dl - Lipids greater than 1000 mg/dl - FDP greater than 20 ug/ml 8 Result TnIDx:0.04 Called to [id number] at: 11:01:44 by:[id number] Read back by: [id number] 9 Result TnIDx:0.04 Called to [id number] at: 11:01:44 by:[id number] Read back by: [id number] 10 SEE RESULT BELOW Name: MARICARMEN VILLARREAL : [address]: Olive Miguel MD Acct: [id number] Unit: [id number] AGE: 72 Location: [place] [address] Re11/07/17 SEX: F Status: ADM IN SPEC: [id number] CLAUDIA: 11/07/[address]: Isis Prasad NP REQ: [id number] RECD: 11/07/17 STATUS: LEONID LOW DR: Inder Batres III, MD _ SOURCE: URINE SPDESC: ORDERED: Urine Culture Procedure Result Reported Site Urine Culture Final 11/09/17- 0815 ML Organism 1 ESCHERICHIA COLI [place] Count >100,000 (Many) CFU/ML 1. ESCHERICHIA COLI M.I.C. RX --------- ------ Ampicillin 16 I Cefazolin >=64 R Cefepime <=1 S Ceftriaxone <=1 S Ciprofloxacin <=0.25 S Gentamicin <=1 S Levofloxacin <=0.12 S Meropenem <=0.25 S Nitrofurantoin <=16 S Tetracycline <=1 S Pipercillin/Tazobactam <=4 S Trimethoprim/Sulfamethoxazole <=20 S Amoxicillin/Clavulanic Acid R Aztreonam <=1 S Contact the Microbiology Department for any additional antibiotic reporting. * [facility] - Main Lab . END OF REPORT DEPARTMENT OF PATHOLOGY, [address] [place] [address] Philip Garner M.D. Director [facility] # [id number] 11 [facility] Severe Sepsis and Septic Shock Management Bundle Measure requires all lactic acids initially measuring >2.0 mmol/L be repeated. 12 >100 to <200 pg/mL: likely compensated congestive heart failure (CHF) 200 to 400 pg/mL: likely moderate CHF >400 pg/mL: likely moderate to severe CHF 13 Because ethnic data is not always readily [...] 15-29 5 Kidney failure <15 (or dialysis) 14 Acute inflammation: >10.00 15 Result TnIDx:0.16 Called to [id number] at: 18:03:13 by:[id number] Read back by: [id number] 16 *Ascorbic acid is present which may interfere with detection of blood. 17 [facility] Severe Sepsis and Septic Shock Management Bundle Measure requires all lactic acids initially measuring >2.0 mmol/L be repeated. 18 Because ethnic data is not always readily [...] 15-29 5 Kidney failure <15 (or dialysis) 19 Acute inflammation: >10.00 20 Result TnIDx:0.09 Called to [id number] at: 13:45:02 by:[id number] Read back by: [id number] 21 >100 to <200 pg/mL: likely compensated congestive heart failure (CHF) 200 to 400 pg/mL: likely moderate CHF >400 pg/mL: likely moderate to severe CHF 22 Desirable <150 Borderline high 150-199 High 200-499 Very High >500 23 Desirable <200 Borderline high 200-239 High >239 24 Low <40 Desirable: 40-60 High: >60 25 Desirable: <100 mg/dL Near Optimal: 100-129 mg/dL Borderline High: 130-159 mg/dL High: 160-189 mg/dL Very High: >189 mg/dL 26 Because ethnic data is not always [...] 5 Kidney failure <15 (or dialysis) 27 >100 to <200 pg/mL: likely compensated congestive heart failure (CHF) 200 to 400 pg/mL: likely moderate CHF >400 pg/mL: likely moderate to severe CHF 28 Because ethnic data is not always [...] 5 Kidney failure <15 (or dialysis) 29 w/ next INR draw Non-fasting ok 30 >100 to <200 pg/mL: likely compensated congestive heart failure (CHF) 200 to 400 pg/mL: likely moderate CHF >400 pg/mL: likely moderate to severe CHF 31 Because ethnic data is not always readily [...] 15-29 5 Kidney failure <15 (or dialysis) 32 Because ethnic data is not always readily [...] 15-29 5 Kidney failure <15 (or dialysis) 33 Result TnIDx:0.90 Called to [id number] at: 17:02:22 by:[id number] Read back by: [id number] 99th percentile=0.04 ng/mL Troponin results at [facility] and [facility] are not interchangeable. 34 RA ROOM AIR 35 Reference ranges based on room air. 36 RV ROOMAIR 37 Reference ranges based on room air. 38 PA ROOM AIR 39 Reference ranges based on room air. 40 FEMORAL ARTERY 41 Reference ranges based on room air. 42 Because ethnic data is not always [...] 5 Kidney failure <15 (or dialysis) 43 Normal Range 180 to 914 Indeterminate Range 145 to 180 Deficient Range <145 44 Because ethnic data is not always readily [...] 15-29 5 Kidney failure <15 (or dialysis) 45 Desirable <150 Borderline high 150-199 High 200-499 Very High >500 46 Desirable <200 Borderline high 200-239 High >239 47 Low <40 Desirable: 40-60 High: >60 48 Desirable: <100 mg/dL Near Optimal: 100-129 mg/dL Borderline High: 130-159 mg/dL High: 160-189 mg/dL Very High: >189 mg/dL 49 Because ethnic data is not always readily [...] 15-29 5 Kidney failure <15 (or dialysis) 50 Desirable <150 Borderline high 150-199 High 200-499 Very High >500 51 Desirable <200 Borderline high 200-239 High >239 52 Low <40 Desirable: 40-60 High: >60 53 Desirable: <100 mg/dL Near Optimal: 100-129 mg/dL Borderline High: 130-159 mg/dL High: 160-189 mg/dL Very High: >189 mg/dL 54 Because ethnic data is not always readily [...] 15-29 5 Kidney failure <15 (or dialysis) 55 FASTING 56 HDL Interpretation: Undesirable: High Risk: Less than 40 mg/dL Desirable: Low Risk: Greater than 60 mg/dL 57 LDL Interpretation: Low Risk Optimal Level: LDL Less than 100 mg/dL Near or Above Optimal: LDL 100-129 mg/dL Borderline High Risk: LDL 130-159 mg/dL High Risk: LDL 160-189 mg/dL Very High Risk: LDL Greater than 189 mg/dL 58 Because ethnic data is not always readily [...] 15-29 5 Kidney failure <15 (or dialysis) 59 CHOLESTEROL INTERPRETATION: Desirable: Less than 200 MG/DL Borderline-High Risk: 200-239 MG/DL High-Risk: 240 MG/DL and over 60 HDL INTERPRETATION: Undesirable: High Risk: Less than 40 MG/DL Desirable: Low Risk: Greater than 60 MG/DL 61 LDL INTERPRETATION: Low Risk Optimal Level: LDL Less than 100 MG/DL Near or Above Optimal: LDL 100-129 MG/DL Borderline High Risk: LDL 130-159 MG/DL High Risk: LDL 160-189 MG/DL Very High Risk: LDL Greater than 189 MG/DL 62 [address] 1 63 CHOLESTEROL INTERPRETATION: Desirable: Less than 200 MG/DL Borderline-High Risk: 200-239 MG/DL High-Risk: 240 MG/DL and over 64 HDL INTERPRETATION: Undesirable: High Risk: Less than 40 MG/DL Desirable: Low Risk: Greater than 60 MG/DL 65 LDL INTERPRETATION: Low Risk Optimal Level: LDL Less than 100 MG/DL Near or Above Optimal: LDL 100-129 MG/DL Borderline High Risk: LDL 130-159 MG/DL High Risk: LDL 160-189 MG/DL Very High Risk: LDL Greater than 189 MG/DL 66 Anion gap measurement may be of limited value in the presence of any alkalosis, especially in a combined acid base disorder. . 67 A metabolite of Naproxen, O-desmethylnaproxen, has been shown to interfere with the Jendrassik-Oswego method for measuring total bilirubin. Samples from patients who have taken Naproxen have shown spurious elevation in total bilirubin levels. 68 Because ethnic data is not always readily [...] 15-29 5 Kidney failure <15 (or dialysis) 69 RUN DATE: 08/02/11 [facility] NMI LIVE PAGE 1 RUN TIME: 932 Specimen Inquiry RUN USER: INTERFACE Name: MARICARMEN VILLARREAL#: [id number] Status: REG REF Re07/31/11 Age/Sex: 65/F Unit#: [id number] Location: [facility].B. : [birth year] SPEC #: [id number] CLAUDIA: 07/31/11 STATUS: LEONID REQ #: [id number] RECD: 07/31/[address] [facility] [address] ENTR: 07/31/[address] [facility] [address]: [facility]: ORDERED: URINE C S QUERIES: MEDENT REQUISITION # [id number] Procedure Result Verified Site > URINE CULTURE SENSITIVI Final 08/02/11932 ML Organism 1 ESCHERICHIA COLI COLONY COUNT >100,000 ORGANISMS/ML (MANY) 1. ESCHERICHIA COLI RX M.I.C. ------ --------- AMIKACIN S <=2 LEVOFLOXACIN S <=0.12 AMPICILLIN S <=2 CEFAZOLIN S <=4 CEFTRIAXONE S <=1 CIPROFLOXACIN S <=0.25 GENTAMICIN S <=1 TIGECYCLINE S <=0.5 CEFTAZIDIME S <=1 IMIPENEM S <=1 NITROFURANTOIN S 32 TRIMETH-SULFA S <=20 *These antibiotics are not available in the [facility] Formulary. Contact the Microbiology Department for any additional antibiotic reporting. - [facility] Permit #[id number] [address] [place] [address] DEPARTMENT OF PATHOLOGY, [address] [place] [address] [facility] Permit #[id number] Philip Garner M.D. Director Lora Gipson M.D. Portable Pinch Riveter 70 FAX RESULTS TO AT FAX NUMBER [phone] 71 Anion gap measurement may be of limited value in the presence of any alkalosis, especially in a combined acid base disorder. . 72 Note change in reference range as of 02/10/08. The change was based on recommendations from the [place] [employer]. 73 Please note change in reference range effective 07 . 74 Because ethnic data is not always readily [...] 15-29 5 Kidney failure <15 (or dialysis) 75 >100^>100,000 ORGANISMS/ML (MANY)^CCU 76 SCANT NORMAL URETHRAL OR PERINEAL MIRIAM 77 Anion gap measurement may be of limited value in the presence of any alkalosis, especially in a combined acid base disorder. . 78 Note change in reference range as of 02/10/08. The change was based on recommendations from the [place] [employer]. 79 Please note change in reference range effective 07 . 80 A metabolite of Naproxen, O-desmethylnaproxen, has been shown to interfere with the Jendrassik-Elicia method for measuring total bilirubin. Samples from patients who have taken Naproxen have shown spurious elevation in total bilirubin levels. 81 Because ethnic data is not always readily [...] 15-29 5 Kidney failure <15 (or dialysis) 82 THE URINE SPECIMEN WAS TESTED AT THE LISTED CUTOFFS: DRUG CLASS TEST LEVEL (NG/ML) AMPHETAMINES 300 BARBITUATES 200 COCAINE METABOLITES 300 CANNABINOIDS 25 OPIATES 200 THIS IS A SCREENING PROCEDURE. POSITIVE RESULTS ARE NOT CONFIRMED. SPECIMEN WAS RECEIVED WITHOUT CHAIN OF CUSTODY. RESULTS SHOULD BE USED FOR MEDICAL PURPOSES ONLY. . 83 -- REFERENCE VALUE -- Cutoff: 300 84 -- REFERENCE VALUE -- Cutoff: 100 85 -- REFERENCE VALUE -- Cutoff: 100 86 -- REFERENCE VALUE -- Cutoff: 100 87 -- REFERENCE VALUE -- Cutoff: 100 88 -- REFERENCE VALUE -- Cutoff: 100 89 This report is intended for use in clinical monitoring and management of patients. It is not intended for use in employment-related drug testing. Test Performed by: [facility] Dpt of Lab Med and Pathology [address] [place] [address] Sign Painter Helper: Bakari Quan III, M.D. 90 -- REFERENCE VALUE -- Cutoff: 500 91 -- REFERENCE VALUE -- Cutoff: 200 92 -- REFERENCE VALUE -- Cutoff: 200 93 -- REFERENCE VALUE -- Cutoff: 300 94 -- REFERENCE VALUE -- Cutoff: 300 95 *Drug confirmation ordered by reflex. Refer to confirmation result to follow for the definitive result. -- REFERENCE VALUE -- Cutoff: 300 96 -- REFERENCE VALUE -- Cutoff: 300 97 This report is intended for use in clinical monitoring or management of patients. It is not intended for use in employment-related testing. Test Performed by: [facility] Dpt of Lab Med and Pathology [address] [place] [address] Sign Painter Helper: Bakari Quan III, M.D. 98 Anion gap measurement may be of limited value in the presence of any alkalosis, especially in a combined acid base disorder. . 99 Note change in reference range as of 02/10/08. The change was based on recommendations from the [place] [employer]. 100 Please note change in reference range effective 07 . 101 A metabolite of Naproxen, O-desmethylnaproxen, has been shown to interfere with the Jendrassik-Elicia method for measuring total bilirubin. Samples from patients who have taken Naproxen have shown spurious elevation in total bilirubin levels. 102 Because ethnic data is not always readily [...] dialysis) Procedures Date CPT Code Description Status 02/26/2018 12430 ECHO Transthoracic, Real-Time 2D With Doppler And Color Completed Flow 02/12/2018 18498 EKG Tracing & Interpretation Completed 02/10/2018 52578 EKG Tracing & Interpretation Completed 01/03/2018 58150 Holter Monitor Review (24 hr)dr review & interp only Completed 12/28/2017 80904 ECG Monitor/Recording W/Visual Superimposition Scanning Completed 12/15/2017 79182 EKG Tracing & Interpretation Completed 09/24/2017 24117 EKG, Interpretation Only Completed 09/24/2017 05754 ECHO Transthorasic Realtime 2D W Doppler & Color Flow Completed Hosp 09/24/2017 26217 EEG Recording Awake & Asleep Completed 03/31/2017 38577 ECHO Transthoracic, Real-Time 2D With Doppler And Color Completed Flow 03/31/2017 50516 ECHO Transthoracic, Real-Time 2D With Doppler And Color Completed Flow 02/10/2017 97322 EKG Tracing & Interpretation Completed 2016 26918 ECHO Transthoracic, Real-Time 2D With Doppler And Color Completed Flow 10/14/2016 81692 EKG Tracing & Interpretation Completed 09/22/2016 92167 ECHO Transthorasic Realtime 2D W Doppler & Color Flow Completed Hosp 09/05/2016 23738 RT & lt Cath W/Injx HRT Art&L Ventr Img S&I Completed 08/08/2016 88382 Echocardiography, Transesophageal, Real Time W/Image 2D Completed W/W/O M-M 08/08/2016 72881 Pulse Wave/Continuous-Interp.RPT Completed 08/08/2016 10389 Color Flow Doppler/Interp & Reprt Completed 08/06/2016 70557 ECHO Stress Test Incl Perf Contiuous ekg Monitoring Completed W/Phys Superv 07/28/2016 28347 Diffusing Capacity Completed 07/28/2016 06607 Spirometry Incl Graphic Record, Timed Expiratory Flow Completed Rate 07/22/2016 20755 EKG Tracing & Interpretation Completed 07/22/2016 61397 EKG Tracing & Interpretation Completed 04/30/2016 96778 Chemotherpy Admin Subcutaneous/Im Non-Hormonal Completed Anti-Neoplastic 03/24/2016 08165 Inject/Drain Joint/Bursa Major W/O US Completed 03/11/2016 29909 ECHO Transthoracic, Real-Time 2D With Doppler And Color Completed Flow 03/05/2016 36095 EKG Tracing & Interpretation Completed 10/12/2015 Bone Mineral Density Test Completed 09/25/2015 71124 Chemotherpy Admin Subcutaneous/Im Non-Hormonal Completed Anti-Neoplastic 07/30/2015 07098 EKG Tracing & Interpretation Completed 03/21/2015 09354 Chemotherpy Admin Subcutaneous/Im Non-Hormonal Completed Anti-Neoplastic 03/20/2015 99577 EKG, Interpretation Only Completed 10/30/2014 Mammogram Completed 09/19/2014 47022 Admin Of Inj Completed 01/09/2014 24061 EKG Tracing & Interpretation Completed 09/05/2013 91166 Xray Knee 3 Views Completed 09/05/2013 14179 Rad Exam; Knee, Ap&L Completed 09/05/2013 96124 Inject/Drain Joint/Bursa Major W/O US Completed 08/12/2013 Mammogram Completed 08/12/2013 Bone Mineral Density Test Completed 05/23/2013 02417 EKG Tracing & Interpretation Completed 05/21/2012 41408 EKG Tracing & Interpretation Completed 12/09/2011 53083 Mobile Cardiovascular Telemetry Over 24 HR Up To 30 Completed Days 11/27/2011 33600 Holter Monitor Review (24 hr)dr review & interp only Completed 11/19/2011 39611 EKG Tracing & Interpretation Completed 07/03/2011 Mammogram Completed 07/03/2011 Bone Mineral Density Test Completed 06/05/2011 49986 EKG Tracing & Interpretation Completed 02/14/201112876 Inject/Drain Joint/Bursa Major W/O US Completed 02/14/2011 49294 Xray Knee 3 Views Completed 02/14/2011 11844 Xray Knee 3 Views Completed 05/21/2010 00112 Nasal Endoscopy, Diagnostic Completed 05/14/2010 Mammogram Completed 05/01/2010 Mammogram Completed 04/09/2010 35848 Mobile Cardiovascular Telemetry Over 24 HR Up To 30 Completed Days 03/04/2010 49621 EKG Tracing & Interpretation Completed 02/14/2010 14524 Mobile Cardiovascular Telemetry Over 24 HR Up To 30 Completed Days 02/13/2010 70547 EKG Tracing & Interpretation Completed 02/12/2010 99505 ECHO Transthoracic, Real-Time 2D With Doppler And Color Completed Flow 01/07/2010 17193 Treadmill Interp/Report Only Completed 01/07/2010 52308 Stress Test Supervsn W/Out I/R Completed 11/19/2006 Bone Mineral Density Test Completed Encounters Type Date Location Provider CPT E/M Dx Office Visit 02/12/2018 [facility] Sophy Peoples, 54841 I48.92 11:00a [facility] I50.32 R60.9 R06.00 I44.0 Office Visit 02/10/2018 11:00a [facility] Caleb Portillo, 13618 I48.92 Marissa R06.00 I25.10 R60.9 I50.32 Office Visit 02/05/2018 11:20a [facility] Boo Batres, 87772 M54.2 - Dee Ann I48.92 M79.7 M81.0 Z12.31 J18.9 Office Visit 01/07/2018 1:01p [facility] Mary Manzanares, 25854 I48.91 Assoc, Hospitalists [employer] J18.9 Office Visit 01/06/2018 1:00p [facility] Assoc, Mary Manzanares, 05137 R07.9 Hospitalists [employer] I48.91 Office Visit 12/15/2017 11:00a [facility] Sophy Peoples, 08828 I48.91 [facility] E78.5 I10 Z95.2 Office Visit 11/11/2017 11:54a [facility],[place], 44908 I48.91 Hospitalists M.Bib N17.9 R74.8 M79.7 Office Visit 11/10/2017 11:53a [facility] [place], 80347 I48.91 Hospitalists M.Bib N17.9 R74.8 M79.7 Office Visit 11/09/2017 11:52a [facility] Olive Lamont, 97601 I48.91 Assoc,pc Hospitalists Marissa N17.9 R74.8 M79.7 Office Visit 11/08/2017 11:51a [facility] Olivedesirae Miguel, 63235 I48.91 Assoc,pc Hospitalists Marissa N17.9 R74.8 M79.7 Office Visit 11/07/2017 [facility] Isis Manzo, 96838 I48.91 11:50a Assoc, [employer] Hospitalists N17.9 R74.8 M79.7 Office Visit 11/02/2017 2:40p [facility] Boo Batres, 21511 R29.6 - Dee Ann I48.92 I63.10 R27.0 Office Visit 09/29/2017 8:36a [facility], Elian Chaney, 15374 I63.10 Hospitalists Marissa I48.92 E86.0 Office Visit 09/28/2017 8:34a [facility], Elian Chaney, 96129 I63.10 Hospitalists Marissa I48.92 E86.0 Office Visit 09/27/2017 4:21p [facility] Of Josh Muñiz, 95458 I48.92 Rosita Ann, [facility] I63.9 Z95.1 Office Visit 09/27/2017 8:33a [facility] Olivedesirae Miguel, 74978 I63.10 Assoc,pc Hospitalists Marissa I48.92 E86.0 Office Visit 09/26/2017 8:33a [facility] Olive Carmenhn, 08180 I63.10 Assoc, Hospitalists MFam I48.92 E86.0 W19.xxxA Office Visit 09/25/2017 8:32a [facility] Olive Carmenhn, 66712 I63.10 Assoc, Hospitalists Marissa I48.92 E86.0 W19.xxxA Office Visit 09/25/2017 7:00a [facility] Billy Cain, 13498 R29.6 M.Bib I63.40 Office Visit 09/24/2017 8:30a [facility] Olive Miguel, 31385 I63.10 Assoc, Hospitalists MFam I48.92 E86.0 W19.xxxA Office Visit 09/24/2017 7:00a [facility] Jad Pruett, 71113 R29.6 MFam I63.40 Office Visit 09/23/2017 8:24a [facility] Assoc, Olive Miguel, 54655 R27.0 Hospitalists Marissa E86.0 R00.0 W19.xxxA Office Visit 08/24/2017 1:20p [facility] Boo Batres, 18646 R07.89 Jennifer Price M.D. D64.9 Office Visit 05/20/2017 9:30a [facility] ELIJAH Mora 00116 Z95.2 I10 E78.5 D64.9 Office Visit 03/23/2017 2:30p [facility] ELIJAH Mora 74756 Z95.2 R53.1 I10 E78.5 D64.9 Office Visit 02/10/2017 3:40p [facility] Caleb Portillo M.D. 52336 Z95.2 I34.0 R06.02 I25.10 I10 E78.5 Office Visit 11/07/2016 9:00a [facility] ELIJAH Mora 44968 Z95.2 R06.02 I25.10 I10 Office Visit 10/21/2016 3:00p [facility] ELIJAH Mora 03988 Z95.2 R06.02 Z79.01 D64.9 Z95.1 Office Visit 10/14/2016 2:40p [facility] Caleb Portillo M.D. 25503 Z95.2 I25.10 D64.9 R06.02 I34.0 I10 Office Visit 10/07/2016 2:00p [facility] Boo Batres, 27850 Z95.2 - Dee Ann I25.10 D64.9 Z79.01 Office Visit 09/11/2016 2:20p [facility] Qutaybeh S. Maguli, 77286 I34.0 M.D. I10 R06.02 I25.10 Office Visit 09/02/2016 11:00a [facility] Qutaybeh S. Alphonse, 71552 I34.0 M.D. I10 R06.02 R07.89 G89.4 Office Visit 07/22/2016 8:40a [facility] Caleb Portillo M.D. 24243 I10 I34.0 I10 R06.00 F17.210 I34.0 I95.1 R06.00 Office Visit 07/16/2016 11:15a [facility] Raul Holder M.D. 67464 M25.561 C.M.A. M17.11 M25.571 M65.871 Office Visit 06/30/2016 9:00a [facility] Jad Holden M.D. 78009 M54.5 Of [facility] M47.22 Office Visit 06/26/2016 9:00a [facility] [place] [address] I10 Office Visit 06/05/2016 9:00a [facility] ELIJAH Mora 81220 I10 I34.0 M54.2 F41.9 Office Visit 05/08/2016 10:00a [facility] ELIJAH Mora 10258 I34.0 I10 Office Visit 04/30/2016 9:00a [facility] Boo Batres, 40131 M54.2 - Dee Ann Z23 Z92.29 M81.0 Office Visit 04/10/2016 3:30p [facility] ELIJAH Mora 03859 I34.0 I10 Office Visit 03/24/2016 8:15a [facility] M.D. 15336 M75.51 C.M.A. Office Visit 03/05/2016 11:00a [facility] Caleb Portillo, 97042 E78.0 MFam G89.4 F17.200 I10 I34.0 Office Visit 02/18/2016 4:00p [facility] Boo Batres, 63738 R21 - Dee Ann Office Visit 08/24/2015 2:00p [facility] ELIJAH Mora 46362AQJ I10 I95.1 E78.0 Office Visit 07/30/2015 1:20p [facility] Caleb Portillo M.D. 29544 R03.0 I95.1 Office Visit 06/25/2015 2:40p [facility] - Boo Batres, 04690 R12 Wilman Ann Z23 Office Visit 03/19/2015 9:45a [facility] Jad Holden, 54301 M50.12 Of Rosita Ann Office Visit 01/26/2015 11:40a [facility] - Boo Batres, 63064 796.2 Wilman Ann V76.51 Office Visit 02/27/2014 11:20a [facility] Boo Batres, 76559 807.04 - Wilman Ann 733.00 Office Visit 01/09/2014 1:40p [facility] Caleb Portillo, 28811 300.02 MFam 272.0 796.2 458.0 Office Visit 09/05/2013 10:00a [facility] M.D. 89615 716.96 C.M.A. Office Visit 08/24/2013 1:40p [facility] Boo Batres, 94735 733.00 - Wilman Ann Office Visit 05/23/2013 1:40p [facility] Caleb Portillo, 75511 300.02 M.DLadarius 272.0 780.4 Office Visit 03/11/2013 10:00a [facility] Boo Batres, 70781 272.0 - Herrick M.DLadarius 733.00 300.02 V73.89 V04.81 V03.82 Office Visit 05/21/2012 2:20p [facility] Caleb Portillo M.D. 76189 780.4 272.0 300.02 Office Visit 01/28/2012 1:20p [facility] Boo Batres, 38460 272.0 - Herrick Ami.DLadarius Office Visit 12/11/2011 11:30a [facility] AT Wendie [place], 34353 780.4 [facility] Office Visit 11/19/2011 11:00a [facility] AT Caleb Portillo, 52683 272.0 [facility] M.DLadarius 780.4 386.9 786.59 Office Visit 11/13/2011 10:40a [facility] Boo Batres, 84047 272.0 - Herrick M.DLadarius Office Visit 10/23/2011 10:40a [facility] Boo Batres, 02685 780.4 - Herrick M.DLadarius 300.02 Office Visit 07/31/2011 3:00p [facility] Boo Batres, 89061 791.9 - Wilman Ann 791.9 Office Visit 06/05/2011 2:20p [facility] Caleb Portillo, 84663 300.02 M.DLadarius 785.1 786.50 Office Visit 03/27/2011 3:40p DO Not Use [facility] AT Boo Batres, 79626 733.00 Tk Ann V76.10 715.90 V04.81 300.02 785.1 Office Visit 02/14/2011 1:45p [facility] M.D. 21607 716.96 C.MTr Office Visit 06/04/2010 3:00p [facility] Mindi Salazar, 79503 350.2 AT [facility] Office Visit 05/21/2010 1:30p [facility] Mindi Salazar, 83579 350.2 AT [facility] 473.0 Office Visit 05/13/2010 1:40p DO Not Use Nurses Superintendent AT [facility], 38433 611.71 [facility].D. 461.1 472.0 727.1 Office Visit 04/25/2010 1:00p DO Not Use Nurses Superintendent AT [facility], 97749 702.19 [facility].D. V76.10 Office Visit 03/19/2010 10:20a DO Not Use Nurses Superintendent AT [facility], 52482 465.9 [facility].D. Office Visit 03/15/2010 10:40a DO Not Use Nurses Superintendent AT [facility], 08973 338.4 [facility] M.DLadarius 785.1 Office Visit 03/04/2010 10:30a [facility] Nurse Visit 03566 338.4 785.1 424.0 424.1 Office Visit 02/13/2010 11:00a [facility] Caleb Portillo, 58641 786.50 M.D. 785.1 Office Visit 02/06/2010 3:00p DO Not Use Nurses Superintendent AT [facility], 88131 724.2 [facility] M.DLadarius 785.1 Office Visit 01/17/2010 2:00p DO Not Use Nurses Superintendent AT [facility], 36947 785.1 [facility] M.DLadarius 593.9 Office Visit 01/07/2010 10:00a [facility] Caleb Portillo, 51462 786.50 M.DLadarius 785.1 786.09 Office Visit 12/26/2009 9:40a DO Not Use Nurses Superintendent AT [facility], 88015 785.1 [facility] M.D. Office Visit 11/26/2009 10:00a DO Not Use Nurses Superintendent AT [facility], 42602 786.09 [facility] M.D. Office Visit 09/28/2009 10:45a DO Not Use Nurses Superintendent AT Mur[facility] Tapia.Bib 84621 477.8 [facility] Office Visit 08/28/2009 10:45a [facility] Not Use [facility] 93640 338.4 [facility] 338.4 Office Visit 08/07/2009 10:45a DO Not Use [facility] Superintendent [facility].Bib 24458 461.9 [facility] 338.4 300.02 461.9 Office Visit 07/20/2009 11:20a [facility] Not Use [facility] 63533 338.4 [facility] M.D. 729.1 473.9 780.52 Office Visit 06/19/2009 8:40a [facility] 91430 845.00 [facility] M.D. Office Visit 05/28/2009 9:40a DO Not Use [facility] 20145 338.4 [facility] M.D. 461.9 Office Visit 04/25/2009 8:40a [facility] Not Use [facility] 75188 338.4 [facility] M.D. 338.4 Office Visit 04/12/2009 10:20a DO Not Use [facility] 40050 729.1 [facility] M.D. 338.4 300.02 780.79 338.4 846.1 Office Visit 03/21/2009 9:20a DO Not Use [facility], 27794 338.4 [facility] M.D. 729.1 719.46 846.1 729.1 338.4 300.02 Office Visit 02/07/2009 10:00a DO Not Use [facility] 34302 338.4 [facility] M.D. 338.4 733.00 724.9 729.1 300.02 719.46 Office Visit 12/07/2008 3:00p DO Not Use [facility]es Superintendent [facility], 76336 338.4 [facility] M.D. 729.1 733.00 296.30 300.02 796.2 338.4 733.00 729.1 296.30 300.02 Plan of Care Future Appointment(s):04/13/2018 8:20 am - Caleb Portillo M.D. at [facility]03/05/2018 8:00 am - Caleb Portillo M.D. at [facility] 11:30 am - Sophy Peoples, N.P. at [facility]02/12/2018 - Sophy Peoples N.P.I48.92 Unspecified atrial flutterComments:You are in aflutter but rate more controlled.Follow up:Keep ARNAV and f/u in 2 weeks with me.I50.32 Chronic diastolic (congestive) heart failureRecommendations:Continue Torsemide 2 tabs (5mg) 2x weekly this week then PRN for >2-3 lb weight gain.R60.9 Edema, ffssddipqdaY11.00 Dyspnea, qtywlssexfgA48.0 Atrioventricular block, first degree
--- NOTE | 2018-03-15 07:41 | RAD ---
INDICATION: Fall, trauma. COMPARISON: Comparison is made with a prior CT of the brain from September 23, 2017. TECHNIQUE: Contiguous axial sections of the brain were obtained from the skull base to the vertex without contrast. FINDINGS: The ventricles, cisterns and sulci are enlarged consistent with diffuse atrophy. There is a focal moderate size area of encephalomalacia present in the posterior right parietal lobe most consistent with an old infarct. There is also focal volume loss along the posterior aspect of the left sylvian fissure suggestive of a smaller old infarct. There are small areas of decreased attenuation in subcortical and periventricular white matter most consistent with chronic small vessels in the changes. No mass effect is seen. There is no evidence for hemorrhage. There is mild soft tissue swelling anterior to the right frontal bone and sinus. No fracture is seen. The visualized portion of the paranasal sinuses and mastoid air cells appear clear. IMPRESSION: 1. NO EVIDENCE FOR ACUTE INTRACRANIAL ABNORMALITY. 2. FINDINGS SUGGESTIVE OF BILATERAL CHRONIC INFARCTS.
--- NOTE | 2018-03-15 08:13 | RAD ---
INDICATION: Trauma. COMPARISON: Comparison is made with a prior x-ray study of the cervical spine from January 17, 2015 and a prior MRI of the cervical spine from September 25, 2017. TECHNIQUE: Contiguous axial sections were obtained from the skull base through the T2 vertebra. Images were reconstructed in the sagittal and coronal planes. FINDINGS: VERTEBRA: There is mild retrolisthesis of C3 relative to C4 of approximately 2.5 mm which appears unchanged from the prior MRI study. No prevertebral soft tissue swelling or fracture is seen. C2-C3: There is mild posterior uncinate process spurring. No significant spinal canal or neural foraminal narrowing is seen. C3-C4: There is mild posterior uncinate process spurring and hypertrophic changes within the facet joints. No significant spinal canal narrowing is seen. There is mild bilateral neural foraminal narrowing. C4-C5: There appears be a small central disc protrusion. No significant spinal canal or neural foraminal narrowing is seen. C5-C6: There is moderate posterior uncinate process spurring and hypertrophic changes within the facet joints. There appears to be mild spinal canal narrowing and moderate bilateral neural foraminal narrowing. C6-C7: There is mild posterior uncinate process spurring. No significant spinal canal narrowing is seen. There is mild bilateral neural foraminal narrowing. LUNG APICES: There appears to be apical scarring present in the right upper lobe. IMPRESSION: 1. NO EVIDENCE FOR FRACTURE. 2. MILD TO MODERATE CERVICAL SPONDYLOSIS DESCRIBED.
[2018-03-15] MEDS ORDERED: Acetaminophen TAB* 325 MG PO ONE (08:50)
--- NOTE | 2018-03-15 09:10 | RAD ---
Indication: Low back pain post fall. Comparison: June 26, 2011 MRI. Technique: AP, lateral, and oblique views lumbar sacral spine. Report: Mild RIGHT convex curve is unchanged. Negative for spondylolisthesis at any level. Severe anterior and middle column compression fracture at T12 is new compared with a CT of the thoracic spine from January 23, 2017 and may represent an acute fracture. Indeterminate magnitude of retropulsion of the middle column at T12. No additional fracture or spondylolysis evident. Associated increased kyphosis at the thoracic lumbar junction. Multilevel degenerative spondylosis and facet joint osteoarthritis with moderate L4-L5 and moderately severe L5-S1 disc space narrowing. Unremarkable paraspinal soft tissue contours. LEFT upper quadrant surgical clips. IMPRESSION: #. Severe anterior and middle column compression fracture at T12 is new compared with a CT of the thoracic spine from January 23, 2017 and may represent an acute fracture. Indeterminate magnitude of retropulsion of the middle column at T12. Correlate with clinical assessment and consider CT or MRI at the thoracic lumbar junction for further assessment if deemed appropriate.
--- NOTE | 2018-03-15 09:19 | RAD ---
Indication: Right hip pain. 2 views of the right hip and an AP view the pelvis demonstrates no fracture. No other bone or joint abnormality is noted. Sacroiliac joints and hip joints are intact. IMPRESSION: No fracture of the right hip or pelvis is noted.
[2018-03-15] MEDS ORDERED: NS 0.9% 1000 ML* 1,000 ML IV ONE ×2 (09:51→12:23)
[2018-03-15 10:19] LABS: ABS Basophils 0.1 10^3/ul (0-0.2); ABS Eosinophils 0.1 10^3/ul (0-0.6); ABS Lymphocytes 3.1 10^3/ul (1.0-4.8); ABS Monocytes 0.9 10^3/ul (0-0.8); ABS Neutrophils 8.3 10^3/ul (1.5-7.7); ABS Nucleated RBC 0 10^3/ul; Eosinophil % 0.5 % (0-6); Hematocrit 30 % (35-47); Lymphocyte % 24.8 % (25-47); Mean Corpuscular HGB Conc 30 g/dl (31-36); Mean Corpuscular Hemoglobin 23 pg (27-31); Mean Corpuscular Volume 78 fL (80-97); Mean Platelet Volume 8.6 um3 (7.4-10.4); Nucleated Red Blood Cells % 0; Platelet Count 153 10^3/ul (150-450); Red Blood Count 3.87 10^6/ul (4.00-5.40); Red Cell Distribution Width 18 % (10.5-15); White Blood Count 12.4 10^3/ul (3.5-10.8)
[2018-03-15] MEDS ORDERED: Diltiazem IV* 5 MG/ML 5 ML VIAL (for loading dose/IV Push) (25 MG) IV SLOW PU ONE ×2 (10:20→12:21)
[2018-03-15 10:34] LABS: EGFR Non-African American 43.9 (>60)
--- NOTE | 2018-03-15 10:55 | RAD ---
Indication: Chest pain, tachycardia. Hypertension. Tobacco use. Comparison: January 06, 2018 Technique: Upright AP 1037 hours Report: Rightward rotation noted. Median sternotomy wires. Postsurgical change of mitral valve replacement. Upper normal heart size. Prominent ill-defined central pulmonary vasculature. Prominent interstitial markings with thickened peripheral interlobular septa. Trace fluid in the RIGHT minor fissure. Negative for pneumothorax. Epigastric and gallbladder fossa surgical clips. IMPRESSION: #. Pulmonary vascular congestion and interstitial edema without significant change.
[2018-03-15] MEDS ORDERED: Diltiazem DRIP* 100 MG/100 ML ADDV.BAG IVPB ONE (12:40)
[2018-03-15] MEDS: Diltiazem TAB* 30 MG PO SCH ×2 (13:52→17:11)
[2018-03-15] MEDS: Amitriptyline TAB* 50 MG PO SCH ×2 (15:33→19:49)
[2018-03-15] MEDS: Lidocaine PATCH 5%* 1 PATCH TRANSDERM SCH (15:33)
--- NOTE | 2018-03-15 16:34 | HP ---
CC: Dr. Boo Batres; Dr. Caleb Portillo * HISTORY AND PHYSICAL: DATE OF ADMISSION: 03/15/18 PRIMARY CARE PROVIDER: Dr. Boo Batres. PRIMARY ROLLING ATTENDANT: Dr. Caleb Portillo. ATTENDING PHYSICIAN: Dr. Romero Garibay * (dictated by Isis Prasad NP). CHIEF COMPLAINT: Status post fall with right hip pain. HISTORY OF PRESENT ILLNESS: Ms. Villarreal is a 72-year-old female with past medical history significant for hypertension, atrial fibrillation, fibromyalgia , chronic pain, anxiety, depression, who states that this morning when bending over to adjust the knobs on her heater, she lost her balance, falling onto a chair striking the back of her head and landing on her right hip. She denies any recent cold symptoms such as fevers, chills, although she reports being "cold." She denies any chest pain, shortness of breath. She reports some nausea this morning and "vomiting gas" what she describes is a belching. She denies any palpitations. She reports lower extremity edema for the last 3 days. She states she has been asking her daughter for her fluid pills and her daughter has not given her any as she states that the daughter said that "I know when to give them according to the doctor." She denies any urinary symptoms such as urgency, dysuria, or changes in frequency. She denies any abdominal pain. She denies any cough. The patient states that she follows with Dr. Portillo for Cardiology and that he has been trying to get her in for a cardioversion. EMS was called to assist the patient with getting up and they brought her to the emergency room for further evaluation. While in the emergency room, the patient was found to have AFib/flutter with RVR. She had labs showing a mild leukocytosis with WBC of 12.4. She is slightly anemic, but it is near her baseline. She has a troponin of 0.04, which appears to be below her baseline, chronically elevated troponin. She received 2 boluses of diltiazem and her heart rate was better controlled. The patient was complaining of hip pain and she had x-ray showing no signs of fracture. She had a lumbar x-ray showing a T12 fracture. She had a head CT without significant findings. The hospitalists were asked to evaluate the patient for admission. PAST MEDICAL HISTORY: 1. Hypertension. 2. Atrial fibrillation. 3. Fibromyalgia. 4. Chronic pain. 5. Osteoporosis. 6. Anxiety/depression. PAST SURGICAL HISTORY: 1. Status post right arm ORIF. 2. Status post tonsillectomy. 3. Status post appendectomy. 4. Status post bilateral carpal tunnel release. 5. Status post mitral valve replacement with a porcine valve and 2-vessel CABG in September 2016. 6. Status post total abdominal hysterectomy with bilateral salpingo- oophorectomy. 7. Status post cholecystectomy. 8. Status post gastric stapling. HOME MEDICATIONS: Include: 1. Diltiazem CD 360 mg oral daily. 2. Omeprazole 20 mg oral daily. 3. Folic acid 1 mg oral daily. 4. Eliquis 5 mg oral twice daily. 5. Amitriptyline 50 mg oral 3 times daily. 6. Pravastatin 40 mg oral daily. 7. Aspirin, low dose, three 81 mg tablets daily. 8. Digoxin 125 mcg oral daily. 9. Metoprolol tartrate 50 mg oral twice daily. 10. Baclofen 10 mg tablets, 2 tablets daily. 11. Torsemide 10 mg oral daily as needed for lower extremity swelling. 12. Glucosamine chondroitin once daily. 13. Estefanía Root 550 mg once daily. 14. Acetaminophen 500 mg oral daily as needed for pain. 15. Lidoderm patch 5% apply topical daily. 16. Flonase nasal spray, 1 spray to both nares daily. ALLERGIES: No known drug allergies. FAMILY HISTORY: The patient's father passed in his 70s or 80s from myocardial infarction. He also had a history of diabetes mellitus. The patient had 2 sisters with unknown types of cancer. She believes 1 sister in her 20s from a possible lymph node cancer, the other had cancer in her "neck." SOCIAL HISTORY: The patient reports being a former smoker. She says she quit smoking approximately 10 days ago. Prior to that, she had reported quitting smoking in September; she was smoking 10 cigarettes a day previously, but had been smoking up to a pack a day for many years beginning at the age of 19. She denies alcohol or recreational drug use. She currently lives with her daughter , her brother, Cyril Queen, and his , Jory Queen, will be her surrogate decision makers in the event she is unable to make decisions for herself. REVIEW OF SYSTEMS: I performed an 11-point review of systems. All the pertinent positives and negatives are mentioned in the history of present illness. The remaining review of systems is negative. PHYSICAL EXAMINATION GENERAL APPEARANCE: The patient is alert, pleasant, and appears to be in no acute distress. VITAL SIGNS: Temperature 97.7, heart rate 67, respiratory rate 19, O2 sat 99% on room air, blood pressure 168/50. HEENT: Normocephalic, atraumatic. Pupils are equal and reactive to light. Extraocular movements are intact. RESPIRATORY: There is no accessory muscle use. The lungs are clear to auscultation bilaterally. CARDIOVASCULAR: Heart rate is irregular and tachycardic. S1 and S2 present. There are no murmurs, rubs, or gallops heard. ABDOMEN: Soft, nontender, nondistended. There are bowel sounds present x4. EXTREMITIES: There is trace to 1+ bilateral lower extremity edema. DP and PT pulses are 2+ and symmetric. MUSCULOSKELETAL: There is no clubbing or cyanosis noted. The patient exhibits good strength in all extremities. She has no tenderness to palpation to her back. Additionally, she is able to move both lower extremities, and has no pain with palpation of her hips. NEUROLOGICAL: The patient is alert and oriented x4 with some mild confusion. Cranial nerves II through XII are grossly intact. PSYCHOLOGICAL: The patient is calm and cooperative. SKIN: There are no rashes or abnormalities seen. DIAGNOSTIC STUDIES/LAB DATA: Sodium 142, potassium 3.9, chloride 115, CO2 of 21, BUN 32, creatinine 1.21, glucose 89. White blood cell count 12.4, hemoglobin 9.0, hematocrit 30, platelet count 157. Troponin 0.04. EKG from 9:44 a.m., shows an AFib with RVR and a rate of 132, ST depressions in V4 and V5. Repeat EKG at 10:51 shows an atrial flutter with a 4:1 ratio, improved ST depression. These EKGs are similar to previous EKGs from October and December 2017. Brain CT from today. Radiologist's impression: No evidence for acute intracranial abnormality. Findings suggestive of bilateral chronic infarcts. Cervical spine CT from today. Radiologist's impression: No evidence for fracture. [id number] cervical spondylosis as described. Right hip and pelvis x-ray from today. Radiologist's impression: No fracture of the right hip or pelvis is noted. Lumbar spine x-ray from today. Radiologist's impression: Severe anterior and mild column compression fracture at T12 is new compared with a CT of the thoracic spine from 01/23/17, and may represent an acute fracture. Indeterminate magnitude of retropulsion of the middle column at T12. Correlate with clinical assessment and consider CT or MRI of the thoracic lumbar junction for further assessment if deemed appropriate. Chest x-ray from today. Radiologist's impression: Pulmonary vascular congestion and interstitial edema without significant change. IMPRESSION: Ms. Villarreal is a 72-year-old female with past medical history significant for atrial fibrillation, hypertension, anxiety, depression, osteoporosis, and chronic pain, who presented to the emergency room after a fall at home. She will be admitted as an inpatient for atrial fibrillation with rapid ventricular response and right hip pain. ASSESSMENT/PLAN: 1. Atrial fibrillation with rapid ventricular response. There is unclear cause for her atrial fibrillation right now. In the past, she has had gone into atrial fibrillation with rapid ventricular response due to not taking her medications. She received Cardizem boluses in the emergency room. I am unable to determine at this time if she had her routine meds, I am going to start her on short-acting Cardizem oral, and continue her on her home metoprolol. She will be continued on Eliquis. She recently had an echocardiogram in the [employer] [facility]. She had a normal ejection fraction on the echo that was done outpatient earlier this month. Copy of that has been placed in the chart. According to the patient, they are trying to schedule her for an outpatient cardioversion. I have asked Cardiology to consult as she may be able to have a cardioversion while she is here. 2. Unsafe living situation. Social Work has been asked to consult on the patient. I suspect she will need a halfway placement. 3. Elevated troponin. The patient is actually below what appears to be her baseline. I will trend her troponins in the setting of atrial fibrillation with rapid ventricular response. 4. Elevated creatinine. The patient appears to have stage 3 chronic kidney disease. Her creatinine appears to be near the baseline. I am going to hold any nephrotoxic agents, hold her ibuprofen she takes at home, and recheck her labs in the morning. 5. Leukocytosis. She denies any respiratory or urinary symptoms. I will check a UA, her chest x ray does not appear to show a pneumonia. 6. Fibromyalgia and chronic pain. The patient will be continued on her home amitriptyline, lidocaine patch, and baclofen as needed. 7. Hyperlipidemia. We will continue her on her statin. 8. Fluids, electrolytes, and nutrition. She will be on a heart-healthy, no caffeine diet. 9. Code status. The patient wishes to be a do not resuscitate, a MOLST form has been completed and placed in her chart. 10. DVT prophylaxis. She is at moderate risk and will be continued on her home Eliquis. 11. Disposition. Inpatient. TIME SPENT: Time for this admission was approximately 60 minutes, greater than half of that was spent with the patient discussing medications, past medical history, the events leading up to her arrival today, and performing a physical examination. The case has been reviewed with the attending, Dr. Garibay, who agrees with the plan of care. Reviewed by SHELDON MILNER 03/17/18 [id number] [id number]/[facility] [place] #: [id number] NABILA
[2018-03-15] MEDS: Acetaminophen TAB* 325 MG PO PRN ×2 (17:13→22:14)
[2018-03-15] MEDS: Torsemide TAB* 20 MG PO SCH (17:56)
[2018-03-15] MEDS: Digoxin TAB* 0.125 MG PO SCH (17:56)
[2018-03-15] MEDS: Metoprolol Tartrate TAB* 50 mg PO SCH (19:49)
[2018-03-15] MEDS: Lidocaine Patch REMOVE* 1 NOTE MISC SCH (19:50)
[2018-03-15] MEDS ORDERED: Furosemide IV* 10 MG/ML 2 ML VIAL (20 MG) IV SLOW PU ONE (20:31)
[2018-03-15] MEDS ORDERED: Apixaban* 5 MG TAB PO SCH (21:00)
[2018-03-16] MEDS: Diltiazem TAB* 30 MG PO SCH ×3 (00:22→14:10)
--- NOTE | 2018-03-16 03:39 | PN ---
Progress Note - Progress Note Date of Service: 03/16/18 Note: Mrs Villarreal admitted for AFIB/RVR was given 50mg PO metoprolol at 194 and 60mg PO diltiazem at 21. By 321 she had converted to AFLUT and had multiple missed beats of 3rd degree HB becoming bradycardic briefly to a rate of 9 (nine) . She had just returned to bed from using the bedside toilet and denies any symptoms. I discussed the finding with her in light of her DNR status and she still would not want CPR, but would accept external pacing until the negative chronotropes have worn off. As such, nursing was advised to place pacer pads and connect a Zoll to be at the ready as well as holding any further negative chronotropes. She will also be placed on bedrest for now.
[2018-03-16] MEDS: Acetaminophen TAB* 325 MG PO PRN ×3 (04:15→17:56)
[2018-03-16 04:39] LABS: ABS Basophils 0.1 10^3/ul (0-0.2); ABS Eosinophils 0.1 10^3/ul (0-0.6); ABS Lymphocytes 3.3 10^3/ul (1.0-4.8); ABS Monocytes 0.8 10^3/ul (0-0.8); ABS Neutrophils 5.7 10^3/ul (1.5-7.7); ABS Nucleated RBC 0 10^3/ul; Eosinophil % 0.9 % (0-6); Hematocrit 25 % (35-47); Hemoglobin 7.8 g/dl (12.0-16.0); Lymphocyte % 33.1 % (25-47); Mean Corpuscular HGB Conc 31 g/dl (31-36); Mean Corpuscular Hemoglobin 24 pg (27-31); Mean Corpuscular Volume 78 fL (80-97); Mean Platelet Volume 8.8 um3 (7.4-10.4); Nucleated Red Blood Cells % 0; Platelet Count 127 10^3/ul (150-450); Red Blood Count 3.24 10^6/ul (4.00-5.40); Red Cell Distribution Width 17 % (10.5-15)
[2018-03-16 05:02] LABS: EGFR Non-African American 43.9 (>60)
[2018-03-16] MEDS ORDERED: Diazepam TAB(*) 5 MG PO ONE (08:42)
[2018-03-16] MEDS ORDERED: Digoxin TAB* 0.125 MG PO SCH (09:00)
[2018-03-16] MEDS: Atorvastatin* 10 MG TAB PO SCH (09:44)
[2018-03-16] MEDS: Aspirin EC TAB* 81 MG TAB.EC PO SCH (09:44)
[2018-03-16] MEDS: Folic Acid TAB* 1 MG PO SCH (09:44)
[2018-03-16] MEDS: Omeprazole CAP* 20 MG PO SCH (09:44)
[2018-03-16] MEDS: Torsemide TAB* 20 MG PO SCH (09:44)
[2018-03-16] MEDS: Metoprolol Tartrate TAB* 50 mg PO SCH (09:46)
[2018-03-16] MEDS: Lidocaine PATCH 5%* 1 PATCH TRANSDERM SCH ×2 (09:47→11:36)
[2018-03-16] MEDS: Fluticasone NASAL SPRAY 50MCG* 16 gm SPRAY BTL BOTH NARES SCH (09:47)
[2018-03-16] MEDS: Digoxin TAB* 0.125 MG PO SCH (09:47)
[2018-03-16] MEDS: Amitriptyline TAB* 50 MG PO SCH ×3 (09:50→20:25)
--- NOTE | 2018-03-16 13:58 | PN ---
Subjective Date of Service: 03/16/18 Interval History: Patient seen and examined. She denies chest pain, no palpitations and no SOB. States her only concern is her "home situation". When I inquired further, she states she is having trouble with her daughter and social services coordinator is involved. Explained to patient I would have SW come and talk with her and involve APS if needed. Objective Active Medications: Acetaminophen (Tylenol Tab*) 650 mg PO Q4H PRN PRN Reason: FEVER/PAIN Last Admin: 03/16/18 04:15 Dose: 650 mg Amitriptyline HCl (Elavil Tab*) 50 mg PO TID [facility] Last Admin: 03/16/18 09:50 Dose: 50 mg Aspirin (Aspirin Ec Tab*) 81 mg PO DAILY [facility] Last Admin: 03/16/18 09:44 Dose: 81 mg Atorvastatin Calcium (Lipitor*) 10 mg PO DAILY [facility]; Protocol Last Admin: 03/16/18 09:44 Dose: 10 mg Digoxin (Lanoxin Tab*) 0.125 mg PO DAILY [facility] Last Admin: 03/16/18 09:47 Dose: Not Given Diltiazem HCl (Cardizem Tab*) 60 mg PO Q6HR [facility] Last Admin: 03/16/18 04:36 Dose: Not Given Fluticasone Propionate (Flonase Nasal [place] 50mcg*) 1 spray BOTH NARES DAILY [facility] Last Admin: 03/16/18 09:47 Dose: Not Given Folic Acid (Folvite Tab*) 1 mg PO DAILY [facility] Last Admin: 03/16/18 09:44 Dose: 1 mg Cefazolin Sodium 1 gm/ Sodium (Chloride) 50 mls @ 200 mls/hr IVPB ONCE ONE Stop: 03/18/18 09:14 Cefazolin Sodium 2 gm/ Sodium (Chloride) 100 mls @ 100 mls/hr IVPB ONCE ONE Stop: 03/18/18 11:59 Lidocaine (Lidoderm 5% Patch*) 1 patch TRANSDERM DAILY [facility] Last Admin: 03/16/18 11:36 Dose: 1 patch Metoprolol Tartrate (Lopressor Tab*) 50 mg PO BID [facility] Last Admin: 03/16/18 09:46 Dose: Not Given Omeprazole (Prilosec Cap*) 20 mg PO DAILY [facility] Last Admin: 03/16/18 09:44 Dose: 20 mg Pharmacy Profile Note (Lidocaine Patch Remove*) 1 note N/A 2100 [facility] Last Admin: 03/15/18 19:50 Dose: 1 note Torsemide (Demadex*) 10 mg PO DAILY [facility] Last Admin: 03/16/18 09:44 Dose: 10 mg Vital Signs - 8 hr 03/16/18 03/16/18 03/16/18 06:00 07:00 08:00 Temperature 99.7 F Pulse Rate 72 139 130 Respiratory 22 16 15 Rate Blood Pressure 144/75 (mmHg) O2 Sat by Pulse 100 97 97 Oximetry 03/16/18 03/16/18 03/16/18 09:00 09:47 10:00 Temperature Pulse Rate 135 141 142 Respiratory 24 18 Rate Blood Pressure (mmHg) O2 Sat by Pulse 98 97 Oximetry 03/16/18 03/16/18 03/16/18 11:00 12:00 13:00 Temperature 99.5 F Pulse Rate 147 143 140 Respiratory 16 22 23 Rate Blood Pressure 139/74 127/75 (mmHg) O2 Sat by Pulse 98 98 97 Oximetry 03/16/18 13:01 Temperature Pulse Rate 140 Respiratory 19 Rate Blood Pressure 147/88 (mmHg) O2 Sat by Pulse 97 Oximetry Oxygen Devices in Use Now: None Appearance: alert, tired Eyes: No Scleral Icterus, PERRLA Ears/Nose/Mouth/Throat: Mucous Membranes Moist Neck: NL Appearance and Movements; NL JVP, Trachea Midline Respiratory: Symmetrical Chest Expansion and Respiratory Effort, Clear to Auscultation Cardiovascular: - - persistent aflutter with RVR rate 140's Abdominal: NL Sounds; No Tenderness; No Distention Extremities: No Edema, No Clubbing, Cyanosis Neurological: Alert and Oriented x 3, NL Sensation, - Nutrition: Taking PO's Result Diagrams: 03/16/18 04:23 03/16/18 04:23 Assess/Plan/Problems-Billing Assessment: This is a 72 year old female with hx of afib, HTN, chronic pain and depression that presented to ER with complaints of fall and found to be in aflutter with RVR. - Patient Problems (1) Atrial flutter with rapid ventricular response Code(s): I48.92 - UNSPECIFIED ATRIAL FLUTTER SNOMED Code(s): 7702599 Comment: - Had pause of 6.5 seconds last evening after BB and cardizem were given - Echo last September showed EF 55% and bioprosthetic mitral valve with good position/function - Cardiology following - Plan is for cardioversion after PM placed - Hold oral meds, as patient having tachy/magy episodes, will restart cardizem drip for rate control in anticipation of procedure (2) Depression Code(s): F32.9 - MAJOR DEPRESSIVE DISORDER, SINGLE EPISODE, UNSPECIFIED SNOMED Code(s): 96352752 Comment: - Concern that APS may need to be involved with patient's home situation - Continue supportive care (3) Chronic pain Code(s): G89.29 - OTHER CHRONIC PAIN SNOMED Code(s): 50789126 Comment: - Has lidocaine patch and amitriptyline, stable (4) DVT prophylaxis Code(s): MME2419 - SNOMED Code(s): 365333497 Comment: - SCDs, will restart Eliquis after PM insertion if clear by cardiology to restart Status and Disposition: Plan for PM insertion and cardioversion on . Remain in ICU.
[2018-03-16 14:34] LABS: Urine Appearance Clear; Urine Color Colorless
[2018-03-16 14:35] LABS: Urine Blood Negative (Negative); Urine Ketones Negative (Negative); Urine Protein Negative (Negative); Urine Urobilinogen Negative (Negative)
[2018-03-16] MEDS ORDERED: DILTIAZEM IVPB SCH (15:00)
[2018-03-16] MEDS ORDERED: NS 0.9% IVPB SCH (15:00)
[2018-03-16] MEDS ORDERED: Diltiazem IV VIAL* 125 MG in NS 0.9% 100 ML* 100 ML IVPB SCH ×2 (15:12→22:00)
[2018-03-16] MEDS ORDERED: Pneumococcal *Vac Polyvalent 0.5 ML VIAL IM ONE (16:00)
--- NOTE | 2018-03-16 16:19 | CONS ---
CC: Dr. Boo Batres; Dr. Caleb Portillo * CARDIOLOGY CONSULTATION: DATE OF CONSULT: 03/15/18 INDICATION FOR CONSULT: Atrial fibrillation and tachycardia. HISTORY OF PRESENT ILLNESS: The patient is a 72-year-old female with a history of atrial arrhythmias, atrial fibrillation, coronary artery disease, chronic pain syndrome, who was admitted to the hospital after having a fall at home. The patient clearly had a mechanical fall at home; it was not a syncopal episode , it was not a lightheaded episode. She was brought to the emergency room for evaluation. In the emergency room, she was in atrial fibrillation with rapid ventricular response and was admitted to the hospital for evaluation. The patient has a long history of paroxysmal atrial fibrillation. The patient was seen by Sophy Peoples, our nurse practitioner, on 02/12/18, at that time, she was in atrial fibrillation. Dr. Portillo was trying to rate control her with appropriate medications and consider a cardioversion at some point. The patient is on anticoagulation with Eliquis 5 mg a day. She was also on metoprolol 50 mg b.i.d., diltiazem CD 360 mg a day, and digoxin for rate control. In speaking with the patient, her major complaint was her back pain and pain control, but denied any episodes of palpitations. Again, no episodes of lightheadedness, dizziness, or syncope. The patient did have an echocardiogram on 02/26/18, which demonstrated normal LV size with systolic function, mild aortic stenosis. Her bioprosthetic mitral valve was functioning normally. She had mild tricuspid regurgitation and mild pulmonary hypertension. PAST MEDICAL HISTORY: Significant for coronary bypass surgery in August of 2016 , history of hypertension, asthma, hypercholesterolemia, lower back pain, cervical spondylosis. PAST SURGICAL HISTORY: Mitral valve replacement. OUTPATIENT MEDICATIONS: 1. Furosemide 5 mg a day. 2. Amitriptyline as directed. 3. Omeprazole 20 mg a day. 4. Prolia every 6 months. 5. Simvastatin 40 mg a day. 6. Aspirin 81 mg a day. 7. Alprazolam 0.25 mg 3 times a day. 8. Magnesium. 9. Eliquis 5 mg a day. 10. Metoprolol tartrate 50 mg b.i.d. 11. Diltiazem CD 360 mg a day. 12. Ibuprofen as needed. ALLERGIES: No known drug allergies. FAMILY HISTORY: Brother has a history of angina, parents of natural causes. SOCIAL HISTORY: She is . She is on disability. She has 6 children, 3 of which are in the area. She continues to smoke less than 10 cigarettes a day. Denies alcohol use. Does not get any regular exercise. REVIEW OF SYSTEMS: Positive for neck pain, positive for recent constipation. Negative for fevers and chills. Negative for changes in weight. Other 12- point review is unremarkable. PHYSICAL EXAM: Height is 5 feet 5 inches, weight is 156 pounds, temperature 99.7, heart rate is 90, blood pressure 148/77, respiratory rate is 17, and oxygen saturation 97% on room air. Sclerae anicteric. Oropharynx is pink without erythema. Carotids are 2+ without any bruits. JVD is normal. Thyroid is normal. Cardiac Exam: Irregular S1 and S2 with a 1/6 systolic ejection murmur. No diastolic murmur. PMI is normal. Lungs are clear to auscultation. Extremities show minimal edema. She has 2+ pulses throughout. The patient is awake, alert, and oriented. The patient moves all 4 extremities equally. LABORATORY DATA: White count 10, hemoglobin 8, hematocrit 25, platelet count 127. Chemistries within normal limits, BUN 29, creatinine 1.2. Troponins are minimally elevated at 0.04. IMPRESSION AND PLAN: This is a 72-year-old female with a history of mitral valve replacement, history of single-vessel bypass, who was admitted to the hospital with a mechanical fall. Clearly, the patient just had a fall at home; this was not a syncopal episode. The patient does have a history of tachybrady syndrome as documented by Dr. Portillo. On telemetry, she did have a 6-second pause last night on IV diltiazem. The case was discussed with Dr. Portillo, his recommendation is the patient undergo a dual-chamber pacemaker implantation and then proceed with cardioversion to normal sinus rhythm. This will be set up. The patient is on Eliquis, so the earliest she could have pacemaker is probably . [id number]/[facility] #: [id number] [facility]
[2018-03-16] MEDS ORDERED: Acetaminophen TAB* 325 MG PO PRN (19:00)
[2018-03-16] MEDS: Acetaminophen TAB* 325 MG PO SCH (21:16)
[2018-03-16] MEDS: oxyCODONE TAB* 5 MG TAB PO PRN (21:19)
[2018-03-16] MEDS: Lidocaine Patch REMOVE* 1 NOTE MISC SCH (21:21)
[2018-03-17] MEDS: Acetaminophen TAB* 325 MG PO SCH ×4 (03:53→20:33)
[2018-03-17] MEDS ORDERED: hydrALAZINE IV* 20 MG/ML VIAL IV SLOW PU PRN (04:00)
[2018-03-17] MEDS ORDERED: hydrALAZINE IV* 20 MG/ML VIAL ONE (04:05)
[2018-03-17] MEDS: oxyCODONE TAB* 5 MG TAB PO PRN ×2 (04:30→17:11)
[2018-03-17 06:18] LABS: Hematocrit 28 % (35-47); Hemoglobin 8.5 g/dl (12.0-16.0); Mean Corpuscular HGB Conc 31 g/dl (31-36); Mean Corpuscular Hemoglobin 24 pg (27-31); Mean Corpuscular Volume 77 fL (80-97); Mean Platelet Volume 9.3 um3 (7.4-10.4); Platelet Count 140 10^3/ul (150-450); Red Blood Count 3.57 10^6/ul (4.00-5.40); Red Cell Distribution Width 17 % (10.5-15); White Blood Count 10.9 10^3/ul (3.5-10.8)
[2018-03-17 06:33] LABS: EGFR Non-African American 48.5 (>60)
[2018-03-17] MEDS: Folic Acid TAB* 1 MG PO SCH (09:09)
[2018-03-17] MEDS: ALPRAZolam TAB* 0.25 MG PO PRN (09:09)
[2018-03-17] MEDS: Amitriptyline TAB* 50 MG PO SCH ×3 (09:09→20:33)
[2018-03-17] MEDS: Omeprazole CAP* 20 MG PO SCH (09:09)
[2018-03-17] MEDS: Aspirin EC TAB* 81 MG TAB.EC PO SCH (09:09)
[2018-03-17] MEDS: Torsemide TAB* 20 MG PO SCH (09:10)
[2018-03-17] MEDS: Fluticasone NASAL SPRAY 50MCG* 16 gm SPRAY BTL BOTH NARES SCH (09:20)
[2018-03-17] MEDS: Atorvastatin* 10 MG TAB PO SCH (09:20)
[2018-03-17] MEDS: Lidocaine PATCH 5%* 1 PATCH TRANSDERM SCH (09:20)
--- NOTE | 2018-03-17 11:11 | PN ---
Subjective Date of Service: 03/17/18 Interval History: Patient seen and examined. She is complaining about pricking sensation on her skin, worried about her glasses and clothing, does not complain about chest pain or palpitations. Denies fever or chills. Objective Active Medications: Acetaminophen (Tylenol Tab*) 975 mg PO Q6H [facility] Last Admin: 03/17/18 09:09 Dose: 975 mg Alprazolam (Xanax Tab*) 0.25 mg PO TID PRN PRN Reason: ANXIETY Last Admin: 03/17/18 09:09 Dose: 0.25 mg Amitriptyline HCl (Elavil Tab*) 50 mg PO TID [facility] Last Admin: 03/17/18 09:09 Dose: 50 mg Aspirin (Aspirin Ec Tab*) 81 mg PO DAILY [facility] Last Admin: 03/17/18 09:09 Dose: 81 mg Atorvastatin Calcium (Lipitor*) 10 mg PO DAILY [facility]; Protocol Last Admin: 03/17/18 09:20 Dose: 10 mg Cefazolin Sodium/Dextrose (Kefzol Syringe 1 Gm/10 Ml Flush Syringe(*)) 1 gm FLUSH ONCALL ONE Stop: 03/18/18 09:01 Diazepam (Valium Tab(*)) 5 mg PO ONCE@0800 ONE Stop: 03/18/18 08:01 Fluticasone Propionate (Flonase Nasal [place] 50mcg*) 1 spray BOTH NARES DAILY [facility] Last Admin: 03/17/18 09:20 Dose: 1 spray Folic Acid (Folvite Tab*) 1 mg PO DAILY [facility] Last Admin: 03/17/18 09:09 Dose: 1 mg Hydralazine HCl (Apresoline Iv*) 10 mg IV SLOW PU Q6H PRN PRN Reason: SBP>180 Cefazolin Sodium 2 gm/ Sodium (Chloride) 100 mls @ 100 mls/hr IVPB ONCE ONE Stop: 03/18/18 11:59 Diltiazem HCl 125 mg/ Sodium (Chloride) 125 mls @ 5 mls/hr IVPB Q24H [facility]; Protocol Last Admin: 03/17/18 01:18 Dose: 5 mls/hr Lidocaine (Lidoderm 5% Patch*) 1 patch TRANSDERM DAILY [facility] Last Admin: 03/17/18 09:20 Dose: 1 patch Omeprazole (Prilosec Cap*) 20 mg PO DAILY [facility] Last Admin: 03/17/18 09:09 Dose: 20 mg Oxycodone HCl (Roxycodone Tab*) 2.5 mg PO Q4H PRN PRN Reason: PAIN - BREAKTHROUGH Last Admin: 03/17/18 04:30 Dose: 2.5 mg Pharmacy Profile Note (Lidocaine Patch Remove*) 1 note N/A 2100 [facility] Last Admin: 03/16/18 21:21 Dose: 1 note Torsemide (Demadex*) 10 mg PO DAILY [facility] Last Admin: 03/17/18 09:10 Dose: 10 mg Vital Signs - 8 hr 03/17/18 03/17/18 03/17/18 04:00 04:01 04:02 Temperature 99 F Pulse Rate 71 72 71 Respiratory 19 18 19 Rate Blood Pressure 208/66 199/68 (mmHg) O2 Sat by Pulse 98 90 96 Oximetry 03/17/18 03/17/18 03/17/18 04:04 04:06 04:18 Temperature Pulse Rate 72 72 73 Respiratory 18 16 24 Rate Blood Pressure 195/72 185/113 174/61 (mmHg) O2 Sat by Pulse 99 97 98 Oximetry 03/17/18 03/17/18 03/17/18 04:30 05:00 05:30 Temperature Pulse Rate 72 72 73 Respiratory 19 19 20 Rate Blood Pressure 156/69 171/65 172/60 (mmHg) O2 Sat by Pulse 97 97 97 Oximetry 03/17/18 03/17/18 03/17/18 06:00 06:30 07:00 Temperature Pulse Rate 73 118 147 Respiratory 29 21 23 Rate Blood Pressure 161/65 165/100 169/86 (mmHg) O2 Sat by Pulse 99 98 98 Oximetry 03/17/18 03/17/18 08:00 09:09 Temperature 99.4 F Pulse Rate Respiratory 22 Rate Blood Pressure (mmHg) O2 Sat by Pulse Oximetry Oxygen Devices in Use Now: None Appearance: alert, anxious Eyes: No Scleral Icterus, PERRLA Ears/Nose/Mouth/Throat: Mucous Membranes Moist Neck: NL Appearance and Movements; NL JVP, Trachea Midline Respiratory: Symmetrical Chest Expansion and Respiratory Effort, Clear to Auscultation Cardiovascular: NL Sounds; No Murmurs; No JVD, - - persistent tachycardia, mild edema RLE Abdominal: NL Sounds; No Tenderness; No Distention Extremities: No Clubbing, Cyanosis Neurological: Alert and Oriented x 3 Nutrition: Taking PO's Result Diagrams: 03/17/18 05:45 03/17/18 05:45 Assess/Plan/Problems-Billing Assessment: This is a 72 year old female with hx of afib, HTN, chronic pain and depression that presented to ER with complaints of fall and found to be in aflutter with RVR. - Patient Problems (1) Atrial flutter with rapid ventricular response Code(s): I48.92 - UNSPECIFIED ATRIAL FLUTTER SNOMED Code(s): 9431502 Comment: - Had pause of 6.5 seconds on 03/15 after BB and cardizem were given - Echo last September showed EF 55% and bioprosthetic mitral valve with good position/function - Cardiology following - Plan is for cardioversion after PM placed - Hold oral meds, as patient having tachy/magy episodes, continue cardizem drip for rate control in anticipation of procedure and titrate PRN, rate is extremely variable (2) Depression Code(s): F32.9 - MAJOR DEPRESSIVE DISORDER, SINGLE EPISODE, UNSPECIFIED SNOMED Code(s): 41224474 Comment: - Concern that APS may need to be involved with patient's home situation - Continue supportive care (3) Chronic pain Code(s): G89.29 - OTHER CHRONIC PAIN SNOMED Code(s): 34532661 Comment: - Has lidocaine patch and amitriptyline continue supportve care (4) DVT prophylaxis Code(s): KIB9454 - SNOMED Code(s): 970634582 Comment: - SCDs, will restart Eliquis after PM insertion if clear by cardiology to restart Status and Disposition: Plan for PM insertion and cardioversion on . Remain in ICU.
--- NOTE | 2018-03-17 14:08 | PN ---
Subjective Date of Service: 03/17/18 - CC: fall, atrial fibrillation, tachy-magy Interval History: The patient c/o itching, she thinks she is allergic to something in her blanket. She is short of breath. No awareness of palpitations, racing or irregular heart beat. The patient related the details of her fall, denies awareness of dizziness. Medications Active Medications: Acetaminophen (Tylenol Tab*) 975 mg PO Q6H [facility] 234 BEDS AT [facility] Last Admin: 03/17/18 09:09 Dose: 975 mg Alprazolam (Xanax Tab*) 0.25 mg PO TID PRN PRN Reason: ANXIETY Last Admin: 03/17/18 09:09 Dose: 0.25 mg Amitriptyline HCl (Elavil Tab*) 50 mg PO TID [facility] Last Admin: 03/17/18 09:09 Dose: 50 mg Aspirin (Aspirin Ec Tab*) 81 mg PO DAILY [facility] 234 BEDS AT [facility] Last Admin: 03/17/18 09:09 Dose: 81 mg Atorvastatin Calcium (Lipitor*) 10 mg PO DAILY [facility] 234 BEDS AT [facility]; Protocol Last Admin: 03/17/18 09:20 Dose: 10 mg Cefazolin Sodium/Dextrose (Kefzol Syringe 1 Gm/10 Ml Flush Syringe(*)) 1 gm FLUSH ONCALL ONE Stop: 03/18/18 09:01 Diazepam (Valium Tab(*)) 5 mg PO ONCE@0800 ONE Stop: 03/18/18 08:01 Fluticasone Propionate (Flonase Nasal [place] 50mcg*) 1 spray BOTH NARES DAILY [facility] 234 BEDS AT [facility] Last Admin: 03/17/18 09:20 Dose: 1 spray Folic Acid (Folvite Tab*) 1 mg PO DAILY [facility] 234 BEDS AT [facility] Last Admin: 03/17/18 09:09 Dose: 1 mg Hydralazine HCl (Apresoline Iv*) 10 mg IV SLOW PU Q6H PRN PRN Reason: SBP>180 Cefazolin Sodium 2 gm/ Sodium (Chloride) 100 mls @ 100 mls/hr IVPB ONCE ONE Stop: 03/18/18 11:59 Diltiazem HCl 125 mg/ Sodium (Chloride) 125 mls @ 5 mls/hr IVPB Q24H [facility] 234 BEDS AT [facility]; Protocol Last Admin: 03/17/18 01:18 Dose: 5 mls/hr Lidocaine (Lidoderm 5% Patch*) 1 patch TRANSDERM DAILY [facility] 234 BEDS AT [facility] Last Admin: 03/17/18 09:20 Dose: 1 patch Omeprazole (Prilosec Cap*) 20 mg PO DAILY [facility] 234 BEDS AT [facility] Last Admin: 03/17/18 09:09 Dose: 20 mg Oxycodone HCl (Roxycodone Tab*) 2.5 mg PO Q4H PRN PRN Reason: PAIN - BREAKTHROUGH Last Admin: 03/17/18 04:30 Dose: 2.5 mg Pharmacy Profile Note (Lidocaine Patch Remove*) 1 note N/A 2100 [facility] 234 BEDS AT [facility] Last Admin: 03/16/18 21:21 Dose: 1 note Torsemide (Demadex*) 10 mg PO DAILY [facility] 234 BEDS AT [facility] Last Admin: 03/17/18 09:10 Dose: 10 mg Objective Vital Signs: Temp Pulse Resp BP Pulse Ox 100.1 F 143 25 169/91 99 03/17/18 11:27 03/17/18 13:00 03/17/18 13:00 03/17/18 13:00 03/17/18 13:00 Oxygen Devices in Use Now: None Appearance: older female, lying in bed 45 degrees, picking at bed linens Eyes: PERRLA Ears/Nose/Mouth/Throat: Mucous Membranes Moist Neck: Trachea Midline, No Thyroid Enlargement, Masses Respiratory: Symmetrical Chest Expansion and Respiratory Effort - markedly diminished breath sounds throughout, coarse crackles in the bases bilaterally. Cardiovascular: - - Irregular, 2/6 SM heard at Erb's point and apex (pacer patches limit exam). Abdominal: NL Sounds; No Tenderness; No Distention Extremities: No Edema Skin: No Rash or Ulcers Neurological: - - Awake and alert, vague affect and times and very appropriate questions at others. Good historian, no gross motor or sensory deficits of the extremities. Lines/Tubes/Other Access: Clean, Dry and Intact Peripheral IV Laboratory Results: 03/17/18 05:45 03/17/18 05:45 Total Bilirubin 0.20 mg/dL (0.2-1.0) 03/15/18 10:08 AST 15 U/L (13-39) 03/15/18 10:08 ALT 18 U/L (7-52) 03/15/18 10:08 Alkaline Phosphatase 98 U/L (34-104) 03/15/18 10:08 Total Protein 6.2 g/dL (6.4-8.9) L 03/15/18 10:08 Albumin 3.6 g/dL (3.2-5.2) 03/15/18 10:08 Globulin 2.6 g/dL (2-4) 03/15/18 10:08 Albumin/Globulin Ratio 1.4 (1-3) 03/15/18 10:08 03/15/18 03/15/18 03/15/18 10:08 13:29 16:30 Troponin I 0.04 H* 0.04 H* 0.04 H* Diagnostic Imaging: CXR on admission: CHF EKG Data: Monitor: ATrial fibrillation 109 bpm ventricular rate. up to 6 second pauses when on high dose oral metoprolol and diltiazem. Assessment/Plan 72 yo female s/p fall, in afib with tachy magy. She has been off NOAC and off oral diltiazem and metoprolol. Ventricular rates controlled well on diltiazem gtt, but BP is high PMHX includes CAD with CABG, Mitral valve sx, PAF, asthma, HTN, Chol, possible psyciatric hx, fibromyalgia and chronic pain. Currently anemic which appears new/more pronounced than in the past. Tachy magy: -Dual chamber pacemaker planned for AM when she will be off NOAC for 2 days. -Resume lower dose metoprolol for HTN and rate control, can taper dilt gtt prn. 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 Anemia: -Discussed with hospitalist service, they will evaluate. Fall/mentation: I don't know her baseline, but if any changes I would have a low index to re scan her head. Per nursing, pt is better today c/w yesterday.
[2018-03-17] MEDS ORDERED: Bumetanide IV* 0.25 MG/ML 4 ML VIAL SLOW PUSH ONE (14:10)
[2018-03-17] MEDS: Metoprolol Tartrate TAB* 25 MG PO SCH (14:51)
[2018-03-17] MEDS: Diltiazem IV VIAL* 125 MG in NS 0.9% 100 ML* 100 ML IVPB SCH (15:53)
--- NOTE | 2018-03-17 16:28 | RAD ---
HISTORY: cough COMPARISONS: March 15, 2018 VIEWS: 1: frontal AP view of the chest at 3:35 PM . The patient is obliqued to the right. FINDINGS: LINES AND TUBES: None. CARDIOMEDIASTINAL SILHOUETTE: The cardiomediastinal silhouette is stable. PLEURA: The costophrenic angles are sharp. No pleural abnormalities are noted. LUNG PARENCHYMA: The lungs are clear. ABDOMEN: The upper abdomen is clear. There is no subphrenic gas. BONES AND SOFT TISSUES: The patient is status post median sternotomy. IMPRESSION: NO ACTIVE CARDIOPULMONARY DISEASE.
[2018-03-17 18:15] LABS: Urine Appearance Clear; Urine Blood Negative (Negative); Urine Color Colorless; Urine Ketones Negative (Negative); Urine Protein Negative (Negative); Urine Specific Gravity 1.006 (1.010-1.030); Urine Urobilinogen Negative (Negative)
[2018-03-17] MEDS: Lidocaine Patch REMOVE* 1 NOTE MISC SCH (20:35)
[2018-03-18] MEDS: Acetaminophen TAB* 325 MG PO SCH ×4 (03:23→20:40)
[2018-03-18] MEDS: oxyCODONE TAB* 5 MG TAB PO PRN ×3 (05:04→22:04)
[2018-03-18] MEDS: NS 0.9% 1000 ML* 1,000 ML IV SCH ×2 (07:10→23:22)
[2018-03-18] MEDS: Atorvastatin* 10 MG TAB PO SCH (07:41)
[2018-03-18] MEDS: Folic Acid TAB* 1 MG PO SCH (07:41)
[2018-03-18] MEDS: Amitriptyline TAB* 50 MG PO SCH ×3 (07:42→20:40)
[2018-03-18] MEDS: Metoprolol Tartrate TAB* 25 MG PO SCH (07:42)
[2018-03-18] MEDS: Lidocaine PATCH 5%* 1 PATCH TRANSDERM SCH (07:42)
[2018-03-18] MEDS: Omeprazole CAP* 20 MG PO SCH (07:42)
[2018-03-18] MEDS: Aspirin EC TAB* 81 MG TAB.EC PO SCH (07:42)
[2018-03-18] MEDS: Torsemide TAB* 20 MG PO SCH (07:44)
[2018-03-18] MEDS: Fluticasone NASAL SPRAY 50MCG* 16 gm SPRAY BTL BOTH NARES SCH (07:44)
[2018-03-18] MEDS ORDERED: Diazepam TAB(*) 5 MG PO ONE (08:00)
--- NOTE | 2018-03-18 08:04 | RAD ---
INDICATION: Atrial fibrillation with symptomatic congestive heart failure COMPARISON: Most recent comparison chest x-rays dated March 17, 2018 TECHNIQUE: Single AP portable view of the chest was obtained. FINDINGS: Image quality is compromised due to the relative inferiority of a portable chest x-ray. Again seen are sternotomy wires, surgical clips overlying the mediastinum and external defibrillator pad overlying the right chest. The heart and mediastinum exhibit normal size and contour. The pulmonary vasculature appears mildly engorged and indistinct similar to the previous chest x-ray. There is no focal or lobar consolidation. The costophrenic angles are adequately defined. Visualized bones are normal for the patient's age. IMPRESSION: Similar to the previous days chest x-ray chest x-ray findings are consistent with mild pulmonary vascular congestion.
[2018-03-18] MEDS ORDERED: Lidocaine 1% INJ* 10 MG/ML 30 ML SDV ONE (08:35)
[2018-03-18] MEDS ORDERED: fentaNYL* 50 MCG/ML 2 ML VIAL (100 MCG VIAL) ONE (08:38)
[2018-03-18] MEDS ORDERED: Midazolam* 1 MG/ML 5 ML VIAL (5 MG) ONE ×2 (08:38→09:30)
[2018-03-18] MEDS ORDERED: Naloxone* 0.4 MG/ML 1 ML VIAL ONE (08:39)
[2018-03-18] MEDS ORDERED: Flumazenil* 0.1 MG/ML 5 ML MDV ONE (08:40)
[2018-03-18] MEDS ORDERED: ceFAZolin 1 GM/10 ML flush(*) SYRINGE for pocket flush (cardiology) FLUSH ONE (09:00)
[2018-03-18] MEDS ORDERED: ceFAZolin 1 GM VIAL(*) 1 GM in NS 0.9% 50 ML* 50 ML IVPB ONE (09:00)
[2018-03-18] MEDS ORDERED: Iohexol 300* (CONTRAST) 10 ML SDV ONE ×2 (09:17→09:47)
--- NOTE | 2018-03-18 10:58 | PN ---
Subjective Date of Service: 03/18/18 - CC: falling, afib, tachy magy Interval History: The patient's breathing has improved. No awareness of palpitations, racing or irregular heart beat. Not dizzy. Medications Active Medications: Acetaminophen (Tylenol Tab*) 975 mg PO Q6H [facility] Last Admin: 03/18/18 07:42 Dose: 975 mg Alprazolam (Xanax Tab*) 0.25 mg PO TID PRN PRN Reason: ANXIETY Last Admin: 03/17/18 09:09 Dose: 0.25 mg Amitriptyline HCl (Elavil Tab*) 50 mg PO TID [facility] Last Admin: 03/18/18 07:42 Dose: 50 mg Aspirin (Aspirin Ec Tab*) 81 mg PO DAILY [facility] Last Admin: 03/18/18 07:42 Dose: 81 mg Atorvastatin Calcium (Lipitor*) 10 mg PO DAILY [facility]; Protocol Last Admin: 03/18/18 07:41 Dose: 10 mg Fluticasone Propionate (Flonase Nasal [place] 50mcg*) 1 spray BOTH NARES DAILY [facility] Last Admin: 03/18/18 07:44 Dose: 1 spray Folic Acid (Folvite Tab*) 1 mg PO DAILY [facility] Last Admin: 03/18/18 07:41 Dose: 1 mg Hydralazine HCl (Apresoline Iv*) 10 mg IV SLOW PU Q6H PRN PRN Reason: SBP>180 Cefazolin Sodium 2 gm/ Sodium (Chloride) 100 mls @ 100 mls/hr IVPB ONCE ONE Stop: 03/18/18 11:59 Sodium Chloride (Ns 0.9% 1000 Ml*) 1,000 mls @ 75 mls/hr IV PER RATE [facility] Last Admin: 03/18/18 07:10 Dose: 75 mls/hr Diltiazem HCl 125 mg/ Sodium (Chloride) 125 mls @ 2.5 mls/hr IVPB Q24H [facility]; Protocol Last Admin: 03/17/18 15:53 Dose: 2.5 mls/hr Lidocaine (Lidoderm 5% Patch*) 1 patch TRANSDERM DAILY [facility] Last Admin: 03/18/18 07:42 Dose: 1 patch Metoprolol Succinate (Toprol Xl Tab*) 100 mg PO DAILY [facility] Omeprazole (Prilosec Cap*) 20 mg PO DAILY [facility] Last Admin: 03/18/18 07:42 Dose: 20 mg Oxycodone HCl (Roxycodone Tab*) 2.5 mg PO Q4H PRN PRN Reason: PAIN - BREAKTHROUGH Last Admin: 03/18/18 05:04 Dose: 2.5 mg Pharmacy Profile Note (Lidocaine Patch Remove*) 1 note N/A 2100 [facility] Last Admin: 03/17/18 20:35 Dose: 1 note Torsemide (Demadex*) 10 mg PO DAILY [facility] Last Admin: 03/18/18 07:44 Dose: 10 mg Objective Vital Signs: Temp Pulse Resp BP Pulse Ox 99.2 F 69 25 138/61 98 03/18/18 08:00 03/18/18 08:42 03/18/18 08:42 03/18/18 08:42 03/18/18 08:42 Oxygen Devices in Use Now: Nasal Cannula Appearance: older female, lying in bed comfortable. Eyes: PERRLA Ears/Nose/Mouth/Throat: Mucous Membranes Moist Neck: Trachea Midline, No Thyroid Enlargement, Masses Respiratory: Symmetrical Chest Expansion and Respiratory Effort - markedly diminished breath sounds throughout, crackles improved. Cardiovascular: - - Irregular, 2/6 SM heard at Erb's point and apex Abdominal: NL Sounds; No Tenderness; No Distention Extremities: No Edema Skin: No Rash or Ulcers Neurological: - - Awake and alert, not interested in carrying on a conversation about her health today. Lines/Tubes/Other Access: Clean, Dry and Intact Peripheral IV Laboratory Results: 03/17/18 05:45 03/17/18 05:45 Total Bilirubin 0.20 mg/dL (0.2-1.0) 03/15/18 10:08 AST 15 U/L (13-39) 03/15/18 10:08 ALT 18 U/L (7-52) 03/15/18 10:08 Alkaline Phosphatase 98 U/L (34-104) 03/15/18 10:08 Total Protein 6.2 g/dL (6.4-8.9) L 03/15/18 10:08 Albumin 3.6 g/dL (3.2-5.2) 03/15/18 10:08 Globulin 2.6 g/dL (2-4) 03/15/18 10:08 Albumin/Globulin Ratio 1.4 (1-3) 03/15/18 10:08 03/15/18 03/15/18 03/15/18 10:08 13:29 16:30 Troponin I 0.04 H* 0.04 H* 0.04 H* Diagnostic Imaging: CXR on admission: CHF CXR today: Pulmonary edema. EKG Data: Monitor: ATrial fibrillation 109 bpm ventricular rate. up to 6 second pauses when on high dose oral metoprolol and diltiazem. Assessment/Plan 72 yo female s/p fall, in afib with tachy magy. She has been off NOAC and underwent dual chamber pacemaker implantation this AM. PMHX includes CAD with CABG, Mitral valve sx, PAF, asthma, HTN, Chol, possible psyciatric hx, fibromyalgia and chronic pain. Currently anemic. Tachy magy: -Dual chamber pacemaker implanted, in single chamber mode lower rate 60 bpm. -I increased metoprolol back to 100/day, once given can taper dilt gtt prn. -If needs PO diltiazem back now safe to resume. Afib: -Plan will ultimately be cardioversion and probable antiarrhythmics as an outpatient (discussed with Dr Portillo today). -OK to resume anticoagulation tomorrow. I recommend discharge planning, possible rehab and PT post implant.
[2018-03-18] MEDS ORDERED: ceFAZolin 1 GM ADVAN(*) 1 GM in NS 0.9% 50 ML* 50 ML IVPB SCH (11:00)
[2018-03-18] MEDS ORDERED: ceFAZolin 1 GM VIAL(*) 2 GM in NS 0.9% 100 ML* 100 ML IVPB ONE (11:00)
[2018-03-18] MEDS ORDERED: Metoprolol Succinate XL TAB* 100 MG PO SCH (11:00)
[2018-03-18] MEDS: Diltiazem IV VIAL* 125 MG in NS 0.9% 100 ML* 100 ML IVPB SCH ×2 (11:39→16:18)
--- NOTE | 2018-03-18 12:08 | PN ---
Subjective Date of Service: 03/18/18 Interval History: Patient seen and examined at bedside. Denies fever, chills, shortness of breath , chest discomfort, N/V/D. Pt states that she has not moved her bowels in a few days, but denies discomfort. Tele: A flutter, rate 66 post pacer. Pt was A flutter, rate 50-140's prior to pacemaker Family History: Unchanged from Admission Social History: Unchanged from Admission Past Medical History: Unchanged from Admission Objective Active Medications: Acetaminophen (Tylenol Tab*) 975 mg PO Q6H [facility] Alprazolam (Xanax Tab*) 0.25 mg PO TID PRN Reason: ANXIETY Amitriptyline HCl (Elavil Tab*) 50 mg PO TID [facility] Aspirin (Aspirin Ec Tab*) 81 mg PO DAILY [facility] Atorvastatin Calcium (Lipitor*) 10 mg PO DAILY [facility]; Protocol Fluticasone Propionate (Flonase Nasal [place] 50mcg*) 1 spray BOTH NARES DAILY [facility] Folic Acid (Folvite Tab*) 1 mg PO DAILY [facility] Hydralazine HCl (Apresoline Iv*) 10 mg IV SLOW PU Q6H PRN Reason: SBP>180 Cefazolin Sodium 2 gm/ Sodium (Chloride) 100 mls @ 100 mls/hr IVPB ONCE ONE Stop: 03/18/18 11:59 Sodium Chloride (Ns 0.9% 1000 Ml*) 1,000 mls @ 75 mls/hr IV PER RATE [facility] Diltiazem HCl 125 mg/ Sodium (Chloride) 125 mls @ 2.5 mls/hr IVPB Q24H [facility]; Protocol Cefazolin Sodium/Dextrose (Kefzol 1 Gm In Dextrose Duplex (*)) 1 gm in 50 mls @ 200 mls/hr IVPB Q8H [facility] Lidocaine (Lidoderm 5% Patch*) 1 patch TRANSDERM DAILY [facility] Metoprolol Succinate (Toprol Xl Tab*) 100 mg PO DAILY [facility] Omeprazole (Prilosec Cap*) 20 mg PO DAILY [facility] Oxycodone HCl (Roxycodone Tab*) 2.5 mg PO Q4H PRN Reason: PAIN - BREAKTHROUGH Pharmacy Profile Note (Lidocaine Patch Remove*) 1 note N/A 2100 [facility] Torsemide (Demadex*) 10 mg PO DAILY [facility] Vital Signs - 8 hr 03/18/18 03/18/1818 04:00 04:30 05:00 Temperature Pulse Rate 71 76 141 Respiratory 18 18 21 Rate Blood Pressure 171/73 166/74 155/139 (mmHg) O2 Sat by Pulse 97 98 100 Oximetry 03/18/18 03/18/18 03/18/18 05:30 06:00 06:01 Temperature Pulse Rate 71 100 109 Respiratory 19 20 19 Rate Blood Pressure 171/73 148/94 (mmHg) O2 Sat by Pulse 96 98 98 Oximetry 03/18/18 03/18/18 03/18/18 06:30 07:00 07:01 Temperature Pulse Rate 80 81 119 Respiratory 18 25 29 Rate Blood Pressure 158/70 131/92 (mmHg) O2 Sat by Pulse 97 99 99 Oximetry 03/18/18 03/18/18 03/18/18 07:31 08:00 08:22 Temperature 99.2 F Pulse Rate 75 72 Respiratory 15 20 21 Rate Blood Pressure 162/83 162/72 (mmHg) O2 Sat by Pulse 97 97 Oximetry 03/18/18 03/18/18 03/18/18 08:30 08:42 11:00 Temperature 99.1 F Pulse Rate 69 69 66 Respiratory 26 25 17 Rate Blood Pressure 146/64 138/61 132/60 (mmHg) O2 Sat by Pulse 98 98 99 Oximetry 03/18/18 11:04 Temperature Pulse Rate 66 Respiratory Rate Blood Pressure 132/60 (mmHg) O2 Sat by Pulse 96 Oximetry Oxygen Devices in Use Now: None Appearance: NAD, laying in bed Ears/Nose/Mouth/Throat: Mucous Membranes Moist Respiratory: Symmetrical Chest Expansion and Respiratory Effort, Clear to Auscultation - , diminished Cardiovascular: - - Heart rate irregular with systolic murmur Abdominal: NL Sounds; No Tenderness; No Distention Extremities: No Edema Skin: No Rash or Ulcers, - - Dressing to left upper chest clean and intact Neurological: Alert and Oriented x 3, NL Muscle Strength and Tone Lines/Tubes/Other Access: Clean, Dry and Intact Peripheral IV - site benign Result Diagrams: 03/17/18 05:45 03/17/18 05:45 Assess/Plan/Problems-Billing Assessment: Ms. Villarreal is a 72 year old female with hx of afib, HTN, chronic pain and depression that presented to ER with complaints of fall and found to be in aflutter with RVR. - Patient Problems (1) Status post placement of cardiac pacemaker Code(s): Z95.0 - PRESENCE OF CARDIAC PACEMAKER SNOMED Code(s): 023791974 Comment: - POD - Management per Cardiology (2) Anemia Code(s): D64.9 - ANEMIA, UNSPECIFIED SNOMED Code(s): 937948358 Comment: - Lower than baseline - Denies bleeding - Suspect anemia of chronic disease - Stool for occult blood pending (3) Atrial flutter with rapid ventricular response Code(s): I48.92 - UNSPECIFIED ATRIAL FLUTTER SNOMED Code(s): 6018929 Comment: - Pt with tachy/magy syndrome now S/P pacer - Had pause of 6.5 seconds on 03/15 after BB and cardizem were given - Echo last September showed EF 55% and bioprosthetic mitral valve with good position/function - Cardiology consult, input appreciated - Plan is for cardioversion after pacemaker placed, outpatient - Continue cardizem drip for rate control and titrate PRN - Resumed metoprolol (4) Troponin I above reference range Code(s): R74.8 - ABNORMAL LEVELS OF OTHER SERUM ENZYMES SNOMED Code(s): 257894074 Comment: - Denies chest pain - Troponin 0.04 x 3 - Chronically elevated troponin - Suspect secondary to demand ischemia, rapid A. fib/flutter and CKD (5) Unsteady gait Code(s): R26.81 - UNSTEADINESS ON FEET SNOMED Code(s): 30745062 Comment: - Suspect secondary to deconditioning , subacute CVA and c spine stenosis - PT re-eval pending (6) Depression Code(s): F32.9 - MAJOR DEPRESSIVE DISORDER, SINGLE EPISODE, UNSPECIFIED SNOMED Code(s): 66193066 Comment: - Concern that APS may need to be involved with patient's home situation - Continue supportive care (7) Chronic pain Code(s): G89.29 - OTHER CHRONIC PAIN SNOMED Code(s): 02867588 Comment: - Continue lidocaine patch, amitriptyline, and supportve care (8) Chronic kidney disease, stage 3 Code(s): N18.3 - CHRONIC KIDNEY DISEASE, STAGE 3 (MODERATE) SNOMED Code(s): 839889853 Comment: - Creatinine at baseline (9) DVT prophylaxis Code(s): CQV9963 - SNOMED Code(s): 757857847 Comment: - SCDs, will restart Eliquis in AM (10) DNR (do not resuscitate) Status and Disposition: Inpatient. Discharge when medically stable to home vs SNF.
--- NOTE | 2018-03-18 14:54 | RAD ---
Indication: Status post device implant. Single frontal view of the chest performed at 1230 hours was reviewed. Comparison is made with previous exam dated March 18, 2018 earlier the same day. No mediastinal shift is noted. Heart is of normal size and configuration. Right upper lobe infiltrate is noted. There is now a pacemaker leads are in place. No pneumothorax is noted. IMPRESSION: RIGHT UPPER LOBE INFILTRATE. PACEMAKER LEADS ARE IN PLACE.
[2018-03-18] MEDS ORDERED: Magnesium Hydroxide LIQ* 30 ML UDC PO PRN (17:30)
[2018-03-18] MEDS ORDERED: Polyethylene Glycol 3350* 17 GM PACKET PO PRN (17:30)
[2018-03-18] MEDS: Diltiazem TAB* 30 MG PO SCH ×2 (17:47→22:23)
[2018-03-18] MEDS: ceFAZolin 1 GM in Dextrose (*) 1 GM/50 ML BAG IVPB SCH (19:50)
[2018-03-18] MEDS: Lidocaine Patch REMOVE* 1 NOTE MISC SCH (20:43)
[2018-03-19] MEDS: ceFAZolin 1 GM in Dextrose (*) 1 GM/50 ML BAG IVPB SCH ×3 (03:28→20:31)
[2018-03-19] MEDS: Acetaminophen TAB* 325 MG PO SCH ×4 (03:28→20:15)
[2018-03-19] MEDS: Diltiazem TAB* 30 MG PO SCH ×3 (04:59→18:02)
[2018-03-19] MEDS: Senna TAB PO PRN (06:23)
[2018-03-19] MEDS: oxyCODONE TAB* 5 MG TAB PO PRN ×3 (06:23→18:01)
[2018-03-19] MEDS ORDERED: Metoprolol Tartrate IV* 1 MG/ML 5 ML VIAL IV PRN (06:49)
[2018-03-19] MEDS ORDERED: Metoprolol Tartrate TAB* 50 mg ONE (07:06)
[2018-03-19] MEDS ORDERED: Metoprolol Tartrate TAB* 100 MG TAB ONE (07:06)
[2018-03-19] MEDS: Metoprolol Succinate XL TAB* 50 MG PO SCH ×2 (07:33→09:04)
[2018-03-19] MEDS: Fluticasone NASAL SPRAY 50MCG* 16 gm SPRAY BTL BOTH NARES SCH (07:34)
[2018-03-19] MEDS: Amitriptyline TAB* 50 MG PO SCH ×3 (07:35→20:17)
[2018-03-19] MEDS: Torsemide TAB* 20 MG PO SCH (07:36)
[2018-03-19] MEDS: Aspirin EC TAB* 81 MG TAB.EC PO SCH (07:36)
[2018-03-19] MEDS: Omeprazole CAP* 20 MG PO SCH (07:36)
[2018-03-19] MEDS: Atorvastatin* 10 MG TAB PO SCH (07:38)
[2018-03-19] MEDS: Folic Acid TAB* 1 MG PO SCH (07:38)
[2018-03-19] MEDS: Lidocaine PATCH 5%* 1 PATCH TRANSDERM SCH (07:42)
--- NOTE | 2018-03-19 08:33 | RAD ---
Indication: Status post device implant. 2 views of the chest demonstrates interstitial edema consistent with vascular congestion. Pacemaker leads are in place. No alveolar consolidation are noted. There are old rib fractures on the right chest. Patient is status post tracer thoracotomy. IMPRESSION: Pacemaker leads in place. No pneumothorax is noted. R1
--- NOTE | 2018-03-19 08:36 | PN ---
Subjective Date of Service: 03/19/18 - CC: lisandro. POD#1 Pacer Interval History: No SOB, no pain, no palpitations. Pt is vague, waiting for us to figure out what is wrong with her. Medications Active Medications: Acetaminophen (Tylenol Tab*) 975 mg PO Q6H [facility] Last Admin: 03/19/18 07:37 Dose: 975 mg Alprazolam (Xanax Tab*) 0.25 mg PO TID PRN PRN Reason: ANXIETY Last Admin: 03/17/18 09:09 Dose: 0.25 mg Amitriptyline HCl (Elavil Tab*) 50 mg PO TID [facility] Last Admin: 03/19/18 07:35 Dose: 50 mg Aspirin (Aspirin Ec Tab*) 81 mg PO DAILY [facility] Last Admin: 03/19/18 07:36 Dose: 81 mg Atorvastatin Calcium (Lipitor*) 10 mg PO DAILY [facility]; Protocol Last Admin: 03/19/18 07:38 Dose: 10 mg Diltiazem HCl (Cardizem Tab*) 30 mg PO Q6HR [facility] Last Admin: 03/19/18 04:59 Dose: 30 mg Fluticasone Propionate (Flonase Nasal [place] 50mcg*) 1 spray BOTH NARES DAILY [facility] Last Admin: 03/19/18 07:34 Dose: 1 spray Folic Acid (Folvite Tab*) 1 mg PO DAILY [facility] Last Admin: 03/19/18 07:38 Dose: 1 mg Hydralazine HCl (Apresoline Iv*) 10 mg IV SLOW PU Q6H PRN PRN Reason: SBP>180 Sodium Chloride (Ns 0.9% 1000 Ml*) 1,000 mls @ 75 mls/hr IV PER RATE [facility] Last Admin: 03/18/18 23:22 Dose: 75 mls/hr Cefazolin Sodium/Dextrose (Kefzol 1 Gm In Dextrose Duplex (*)) 1 gm in 50 mls @ 200 mls/hr IVPB Q8H [facility] Last Admin: 03/19/18 03:28 Dose: 200 mls/hr Lidocaine (Lidoderm 5% Patch*) 1 patch TRANSDERM DAILY [facility] Last Admin: 03/19/18 07:42 Dose: 1 patch Magnesium Hydroxide (Milk Of Magnesia Liq*) 30 ml PO BID PRN PRN Reason: CONSTIPATION Metoprolol Succinate (Toprol Xl Tab*) 150 mg PO DAILY [facility] Last Admin: 03/19/18 07:33 Dose: 150 mg Metoprolol Tartrate (Lopressor Iv*) 5 mg IV Q2H PRN PRN Reason: BLOOD PRESSURE Omeprazole (Prilosec Cap*) 20 mg PO DAILY [facility] Last Admin: 03/19/18 07:36 Dose: 20 mg Oxycodone HCl (Roxycodone Tab*) 2.5 mg PO Q4H PRN PRN Reason: PAIN - BREAKTHROUGH Last Admin: 03/19/18 06:23 Dose: 2.5 mg Pharmacy Profile Note (Lidocaine Patch Remove*) 1 note N/A 2100 [facility] Last Admin: 03/18/18 20:43 Dose: 1 note Polyethylene Glycol/Electrolytes (Miralax*) 17 gm PO DAILY PRN PRN Reason: CONSTIPATION Senna (Senokot Tab*) 1 tab PO BEDTIME PRN PRN Reason: CONSTIPATION Last Admin: 03/19/18 06:23 Dose: 1 tab Torsemide (Demadex*) 10 mg PO DAILY [facility] Last Admin: 03/19/18 07:36 Dose: 10 mg Objective Vital Signs: Temp Pulse Resp BP Pulse Ox 99.7 F 70 24 146/67 95 03/19/18 08:00 03/19/18 08:00 03/19/18 08:00 03/19/18 08:00 03/19/18 08:00 Oxygen Devices in Use Now: None Appearance: older female, lying in bed comfortable. Eyes: PERRLA Ears/Nose/Mouth/Throat: Mucous Membranes Moist Neck: Trachea Midline, No Thyroid Enlargement, Masses Respiratory: Symmetrical Chest Expansion and Respiratory Effort - diminished breath sounds throughout, persistant crackles in bases. Cardiovascular: - - S1 S2 regular, 2/6 SM Abdominal: NL Sounds; No Tenderness; No Distention Extremities: No Edema Skin: No Rash or Ulcers, - - incision L subclavian fossa w/o infection, hematoma or ecchymosis. Neurological: - - Awake and alert, not interested in carrying on a conversation about her health today. Lines/Tubes/Other Access: Clean, Dry and Intact Peripheral IV Laboratory Results: 03/17/18 05:45 03/17/18 05:45 Total Bilirubin 0.20 mg/dL (0.2-1.0) 03/15/18 10:08 AST 15 U/L (13-39) 03/15/18 10:08 ALT 18 U/L (7-52) 03/15/18 10:08 Alkaline Phosphatase 98 U/L (34-104) 03/15/18 10:08 Total Protein 6.2 g/dL (6.4-8.9) L 03/15/18 10:08 Albumin 3.6 g/dL (3.2-5.2) 03/15/18 10:08 Globulin 2.6 g/dL (2-4) 03/15/18 10:08 Albumin/Globulin Ratio 1.4 (1-3) 03/15/18 10:08 03/15/18 03/15/18 03/15/18 10:08 13:29 16:30 Troponin I 0.04 H* 0.04 H* 0.04 H* Diagnostic Imaging: CXR on admission: CHF CXR post pacer implant 02/26/18 and 03/19/18: no pneumothorax, good lead placement , +CHF EKG Data: Monitor: ATrial fibrillation controlled rate now, 140's earlier. Pacer interogation today: P waves sensed 1.1 mV, A lead imped. 380 Ohms. R waves sensed 12.4 mV, V lead impedance 494 [address], V pacing threshold not able to be checked. Assessment/Plan 72 yo female s/p fall, in afib with tachy magy. Pt PO dual chamber pacer 03/18/18, underwent dual chamber. Remains in Afib, oral metoprolol resumed and increased. Oral diltiazem is much lower than out patient (was on 360 mg). PMHX includes CAD with CABG, Mitral valve sx, PAF, asthma, HTN, Chol, possible psyciatric hx, fibromyalgia and chronic pain. Currently anemic. Tachy magy: -Pacer shows good function, good lead placement. -Rate of ventricle improved/lowered with increase in metoprolol. -Consider increasing PO diltiazem dose. Afib: -Plan will ultimately remains cardioversion and probable antiarrhythmics as an outpatient as per Dr Portillo. -OK to resume anticoagulation.
--- NOTE | 2018-03-19 08:49 | PN ---
Subjective Date of Service: 03/19/18 Interval History: Patient seen and examined at bedside. Denies fever, chills, shortness of breath , palpitations, chest discomfort, N/V/D. Pt states that she has her chronic back pain, that is controlled. Tele: A fib/flutter, rate 80-140's Family History: Unchanged from Admission Social History: Unchanged from Admission Past Medical History: Unchanged from Admission Objective Active Medications: Acetaminophen (Tylenol Tab*) 975 mg PO Q6H [facility] Alprazolam (Xanax Tab*) 0.25 mg PO TID PRN Reason: ANXIETY Amitriptyline HCl (Elavil Tab*) 50 mg PO TID [facility] Aspirin (Aspirin Ec Tab*) 81 mg PO DAILY [facility] Atorvastatin Calcium (Lipitor*) 10 mg PO DAILY [facility]; Protocol Diltiazem HCl (Cardizem Tab*) 30 mg PO Q6HR [facility] Fluticasone Propionate (Flonase Nasal [place] 50mcg*) 1 spray BOTH NARES DAILY [facility] Folic Acid (Folvite Tab*) 1 mg PO DAILY [facility] Hydralazine HCl (Apresoline Iv*) 10 mg IV SLOW PU Q6H PRN Reason: SBP>180 Sodium Chloride (Ns 0.9% 1000 Ml*) 1,000 mls @ 75 mls/hr IV PER RATE [facility] Cefazolin Sodium/Dextrose (Kefzol 1 Gm In Dextrose Duplex (*)) 1 gm in 50 mls @ 200 mls/hr IVPB Q8H [facility] Lidocaine (Lidoderm 5% Patch*) 1 patch TRANSDERM DAILY [facility] Magnesium Hydroxide (Milk Of Magnesia Liq*) 30 ml PO BID PRN Reason: CONSTIPATION Metoprolol Succinate (Toprol Xl Tab*) 150 mg PO DAILY [facility] Metoprolol Tartrate (Lopressor Iv*) 5 mg IV Q2H PRN Reason: BLOOD PRESSURE Omeprazole (Prilosec Cap*) 20 mg PO DAILY [facility] Oxycodone HCl (Roxycodone Tab*) 2.5 mg PO Q4H PRN Reason: PAIN - BREAKTHROUGH Pharmacy Profile Note (Lidocaine Patch Remove*) 1 note N/A 2100 [facility] Polyethylene Glycol/Electrolytes (Miralax*) 17 gm PO DAILY PRN Reason: CONSTIPATION Senna (Senokot Tab*) 1 tab PO BEDTIME PRN Reason: CONSTIPATION Torsemide (Demadex*) 10 mg PO DAILY [facility] Vital Signs - 8 hr 03/19/18 03/19/18 03/19/18 01:00 01:02 01:13 Temperature Pulse Rate 108 111 109 Respiratory 19 17 19 Rate Blood Pressure 152/80 152/80 (mmHg) O2 Sat by Pulse 98 98 99 Oximetry 03/19/18 03/19/18 03/19/18 02:00 02:01 03:00 Temperature Pulse Rate 111 103 115 Respiratory 19 18 20 Rate Blood Pressure 153/108 153/102 (mmHg) O2 Sat by Pulse 97 97 97 Oximetry 03/19/18 03/19/18 03/19/18 03:51 03:54 04:00 Temperature 98.6 F Pulse Rate 138 Respiratory 22 22 Rate Blood Pressure 148/90 (mmHg) O2 Sat by Pulse 96 Oximetry 03/19/18 03/19/18 03/19/18 05:00 05:35 06:00 Temperature Pulse Rate 137 Respiratory 23 25 Rate Blood Pressure (mmHg) O2 Sat by Pulse 96 96 98 Oximetry 03/19/18 03/19/18 03/19/18 06:12 06:13 06:44 Temperature Pulse Rate 142 141 Respiratory 35 23 20 Rate Blood Pressure 149/90 143/81 (mmHg) O2 Sat by Pulse 99 99 Oximetry 03/19/18 03/19/18 03/19/18 07:00 07:57 08:00 Temperature 99.7 F Pulse Rate 140 70 Respiratory 19 20 24 Rate Blood Pressure 140/85 146/67 (mmHg) O2 Sat by Pulse 97 95 Oximetry Oxygen Devices in Use Now: None Appearance: NAD, sitting up in a chair Eyes: No Scleral Icterus Ears/Nose/Mouth/Throat: Mucous Membranes Moist Respiratory: Symmetrical Chest Expansion and Respiratory Effort, - - Crackles in bilateral bases Cardiovascular: - - Heart rate irregular, murmur Abdominal: NL Sounds; No Tenderness; No Distention Extremities: - - Trace bilateral LE edema Skin: No Rash or Ulcers Neurological: Alert and Oriented x 3, NL Muscle Strength and Tone Lines/Tubes/Other Access: Clean, Dry and Intact Peripheral IV - site benign Nutrition: Taking PO's Result Diagrams: 03/17/18 05:45 03/17/18 05:45 Assess/Plan/Problems-Billing Assessment: Ms. Villarreal is a 72 year old female with hx of afib, HTN, chronic pain and depression that presented to ER with complaints of fall and found to be in aflutter with RVR. - Patient Problems (1) Status post placement of cardiac pacemaker Code(s): Z95.0 - PRESENCE OF CARDIAC PACEMAKER SNOMED Code(s): 999229617 Comment: - POD 1 - Management per Cardiology (2) Anemia Code(s): D64.9 - ANEMIA, UNSPECIFIED SNOMED Code(s): 401612244 Comment: - Lower than baseline - Denies bleeding - Suspect anemia of chronic disease - Stool for occult blood pending (3) Atrial flutter with rapid ventricular response Code(s): I48.92 - UNSPECIFIED ATRIAL FLUTTER SNOMED Code(s): 6876677 Comment: - Pt with tachy/magy syndrome now S/P pacer - Had pause of 6.5 seconds on 03/15 after BB and cardizem were given - Echo last September showed EF 55% and bioprosthetic mitral valve with good position/function - Cardiology consult, input appreciated - Plan is for cardioversion, outpatient - Continue cardizem PO (will increase dose) and metoprolol - Resume Eliquis this AM (4) Troponin I above reference range Code(s): R74.8 - ABNORMAL LEVELS OF OTHER SERUM ENZYMES SNOMED Code(s): 454936924 Comment: - Denies chest pain - Troponin 0.04 x 3 - Chronically elevated troponin - Suspect secondary to demand ischemia, rapid A. fib/flutter and CKD (5) Unsteady gait Code(s): R26.81 - UNSTEADINESS ON FEET SNOMED Code(s): 19753572 Comment: - Suspect secondary to deconditioning , subacute CVA and c spine stenosis - PT re-eval pending (6) Depression Code(s): F32.9 - MAJOR DEPRESSIVE DISORDER, SINGLE EPISODE, UNSPECIFIED SNOMED Code(s): 06131071 Comment: - Concern that APS may need to be involved with patient's home situation - Continue supportive care (7) Chronic pain Code(s): G89.29 - OTHER CHRONIC PAIN SNOMED Code(s): 13366414 Comment: - Continue lidocaine patch, amitriptyline, and supportve care (8) Chronic kidney disease, stage 3 Code(s): N18.3 - CHRONIC KIDNEY DISEASE, STAGE 3 (MODERATE) SNOMED Code(s): 130745744 Comment: - Creatinine at baseline (9) DVT prophylaxis Code(s): WFO7708 - SNOMED Code(s): 264340539 Comment: - SCDs, - Resume Eliquis this AM (10) DNR (do not resuscitate) Status and Disposition: Inpatient. Discharge when medically stable to home vs SNF.
[2018-03-19] MEDS: Apixaban* 5 MG TAB PO SCH ×2 (09:09→20:16)
[2018-03-19] MEDS ORDERED: Diltiazem TAB* 30 MG PO ONE (09:24)
[2018-03-19] MEDS ORDERED: Al Hydrox/Mg Hydrox/Simet LIQ* 30 ML UDC PO PRN (15:07)
[2018-03-19] MEDS: Lidocaine Patch REMOVE* 1 NOTE MISC SCH (21:41)
[2018-03-20] MEDS: ALPRAZolam TAB* 0.25 MG PO PRN (00:08)
[2018-03-20] MEDS: Diltiazem TAB* 30 MG PO SCH ×4 (00:09→18:05)
[2018-03-20] MEDS: oxyCODONE TAB* 5 MG TAB PO PRN ×2 (00:09→08:26)
[2018-03-20] MEDS: Acetaminophen TAB* 325 MG PO SCH ×4 (03:13→20:09)
[2018-03-20] MEDS: ceFAZolin 1 GM in Dextrose (*) 1 GM/50 ML BAG IVPB SCH ×3 (03:33→20:09)
[2018-03-20] MEDS: Metoprolol Succinate XL TAB* 50 MG PO SCH (08:26)
[2018-03-20] MEDS: Omeprazole CAP* 20 MG PO SCH (08:27)
[2018-03-20] MEDS: Folic Acid TAB* 1 MG PO SCH (08:28)
[2018-03-20] MEDS: Amitriptyline TAB* 50 MG PO SCH ×3 (08:28→20:22)
[2018-03-20] MEDS: Aspirin EC TAB* 81 MG TAB.EC PO SCH (08:28)
[2018-03-20] MEDS: Atorvastatin* 10 MG TAB PO SCH (08:30)
[2018-03-20] MEDS: Torsemide TAB* 20 MG PO SCH (08:30)
[2018-03-20] MEDS: Apixaban* 5 MG TAB PO SCH ×2 (08:31→20:10)
[2018-03-20] MEDS: Fluticasone NASAL SPRAY 50MCG* 16 gm SPRAY BTL BOTH NARES SCH (08:31)
[2018-03-20] MEDS: Lidocaine PATCH 5%* 1 PATCH TRANSDERM SCH (08:31)
--- NOTE | 2018-03-20 17:22 | PN ---
Subjective Date of Service: 03/20/18 Interval History: Feels okay this morning. Anxious to go home. Has no pain at the pacer site but reports ongoing back pain that is at baseline. Case discussed with her RN, Mary this morning, who reported that after her morning meds were administered , she became more forgetful and repeated the same questions over and over. Barbara agrees that she does not want to take narcotics residential and hopes to use some herbal supplements to help her back pain in place of oxycodone. Family History: Unchanged from Admission Social History: Unchanged from Admission Past Medical History: Unchanged from Admission Objective Active Medications: Acetaminophen (Tylenol Tab*) 975 mg PO Q6H [facility] Last Admin: 03/20/18 16:45 Dose: 975 mg Al Hydrox/Mg Hydrox/Simethicone (Maalox Plus*) 30 ml PO Q6H PRN PRN Reason: HEARTBURN Alprazolam (Xanax Tab*) 0.25 mg PO TID PRN PRN Reason: ANXIETY Last Admin: 03/20/18 00:08 Dose: 0.25 mg Amitriptyline HCl (Elavil Tab*) 50 mg PO TID [facility] Last Admin: 03/20/18 14:56 Dose: Not Given Apixaban (Eliquis*) 5 mg PO BID [facility] Last Admin: 03/20/18 08:31 Dose: 5 mg Aspirin (Aspirin Ec Tab*) 81 mg PO DAILY [facility] Last Admin: 03/20/18 08:28 Dose: 81 mg Atorvastatin Calcium (Lipitor*) 10 mg PO DAILY [facility]; Protocol Last Admin: 03/20/18 08:30 Dose: 10 mg Diltiazem HCl (Cardizem Tab*) 60 mg PO Q6HR [facility] Last Admin: 03/20/18 11:54 Dose: 60 mg Fluticasone Propionate (Flonase Nasal [place] 50mcg*) 1 spray BOTH NARES DAILY [facility] Last Admin: 03/20/18 08:31 Dose: 1 spray Folic Acid (Folvite Tab*) 1 mg PO DAILY [facility] Last Admin: 03/20/18 08:28 Dose: 1 mg Hydralazine HCl (Apresoline Iv*) 10 mg IV SLOW PU Q6H PRN PRN Reason: SBP>180 Cefazolin Sodium/Dextrose (Kefzol 1 Gm In Dextrose Duplex (*)) 1 gm in 50 mls @ 200 mls/hr IVPB Q8H [facility] Last Admin: 03/20/18 11:54 Dose: 200 mls/hr Lidocaine (Lidoderm 5% Patch*) 1 patch TRANSDERM DAILY [facility] Last Admin: 03/20/18 08:31 Dose: Not Given Magnesium Hydroxide (Milk Of Magnesia Liq*) 30 ml PO BID PRN PRN Reason: CONSTIPATION Metoprolol Succinate (Toprol Xl Tab*) 150 mg PO DAILY [facility] Last Admin: 03/20/18 08:26 Dose: 150 mg Omeprazole (Prilosec Cap*) 20 mg PO DAILY [facility] Last Admin: 03/20/18 08:27 Dose: 20 mg Pharmacy Profile Note (Lidocaine Patch Remove*) 1 note N/A 2100 [facility] Last Admin: 03/19/18 21:41 Dose: 1 note Polyethylene Glycol/Electrolytes (Miralax*) 17 gm PO DAILY PRN PRN Reason: CONSTIPATION Last Admin: 03/19/18 13:59 Dose: 17 gm Senna (Senokot Tab*) 1 tab PO BEDTIME PRN PRN Reason: CONSTIPATION Last Admin: 03/19/18 06:23 Dose: 1 tab Torsemide (Demadex*) 10 mg PO DAILY [facility] Last Admin: 03/20/18 08:30 Dose: 10 mg Vital Signs - 8 hr 03/20/18 03/20/18 03/20/18 11:09 11:25 15:34 Temperature 98.2 F 97.8 F Pulse Rate 66 88 Respiratory 16 17 16 Rate Blood Pressure 128/61 171/56 (mmHg) O2 Sat by Pulse 97 100 Oximetry Oxygen Devices in Use Now: None Appearance: alert but keeps her eyes closed unless instructed to open them. responds to all my questions appropriately and follows all commands. Eyes: No Scleral Icterus Ears/Nose/Mouth/Throat: NL Teeth, Lips, Gums Neck: NL Appearance and Movements; NL JVP Respiratory: Symmetrical Chest Expansion and Respiratory Effort Cardiovascular: No Edema, - - irregular rhythm Abdominal: NL Sounds; No Tenderness; No Distention Lymphatic: No Cervical Adenopathy Extremities: No Edema Skin: No Rash or Ulcers Neurological: Alert and Oriented x 3 Result Diagrams: 03/17/18 05:45 03/17/18 05:45 Assess/Plan/Problems-Billing Assessment: Ms. Villarreal is a 72 year old female with hx of afib, HTN, chronic pain and depression that presented to ER with complaints of fall and found to be in aflutter with RVR; then had a 6 second pause after receiving beta-ekaterina. During this admission, she was diagnosed with tachy-magy syndrome and underwent pacer placement. - Patient Problems (1) Tachy-magy syndrome Current Visit: Yes Status: Acute Code(s): I49.5 - SICK SINUS SYNDROME SNOMED Code(s): 37123230 Comment: now rate controlled on cardizem and with a pacer in place (2) Status post placement of cardiac pacemaker Current Visit: Yes Status: Acute Code(s): Z95.0 - PRESENCE OF CARDIAC PACEMAKER SNOMED Code(s): 838651036 Comment: POD 2 (3) Unsteady gait Current Visit: Yes Status: Acute Code(s): R26.81 - UNSTEADINESS ON FEET SNOMED Code(s): 50506440 Comment: her Ct shows b/l chronic infarcts, she has spinal stenosis, and is also deconditioned PT does not recommend ongoing PT or rehab (4) Chronic kidney disease, stage 3 Current Visit: Yes Status: Chronic Code(s): N18.3 - CHRONIC KIDNEY DISEASE, STAGE 3 (MODERATE) SNOMED Code(s): 385580782 Comment: baseline (5) Chronic pain Current Visit: No Status: Chronic Code(s): G89.29 - OTHER CHRONIC PAIN SNOMED Code(s): 48696705 Comment: hold oxycodone as it made her encephalopathic this morning she is open to this change (6) Atrial flutter with rapid ventricular response Current Visit: Yes Status: Acute Code(s): I48.92 - UNSPECIFIED ATRIAL FLUTTER SNOMED Code(s): 0494730 Comment: Rosie Amado resumed yesterday Plan for outpatient cardioversion with Dr. Portillo Status and Disposition: PT recommending discontinuation of skilled PT services and that she is at her baseline
[2018-03-20] MEDS: Senna TAB PO PRN (20:09)
[2018-03-20] MEDS: Lidocaine Patch REMOVE* 1 NOTE MISC SCH (20:24)
[2018-03-21] MEDS: Diltiazem TAB* 30 MG PO SCH ×5 (00:01→23:25)
[2018-03-21] MEDS: Acetaminophen TAB* 325 MG PO SCH ×4 (02:24→20:01)
[2018-03-21] MEDS: ceFAZolin 1 GM in Dextrose (*) 1 GM/50 ML BAG IVPB SCH ×3 (03:51→22:54)
[2018-03-21] MEDS: Torsemide TAB* 20 MG PO SCH (08:16)
[2018-03-21] MEDS: Folic Acid TAB* 1 MG PO SCH (08:17)
[2018-03-21] MEDS: Aspirin EC TAB* 81 MG TAB.EC PO SCH (08:17)
[2018-03-21] MEDS: Omeprazole CAP* 20 MG PO SCH (08:17)
[2018-03-21] MEDS: Apixaban* 5 MG TAB PO SCH ×2 (08:17→20:02)
[2018-03-21] MEDS: Atorvastatin* 10 MG TAB PO SCH (08:18)
[2018-03-21] MEDS: Amitriptyline TAB* 50 MG PO SCH ×3 (08:20→20:01)
[2018-03-21] MEDS: Metoprolol Succinate XL TAB* 50 MG PO SCH (08:20)
[2018-03-21] MEDS: Lidocaine PATCH 5%* 1 PATCH TRANSDERM SCH (08:21)
[2018-03-21] MEDS: Fluticasone NASAL SPRAY 50MCG* 16 gm SPRAY BTL BOTH NARES SCH (08:23)
--- NOTE | 2018-03-21 14:11 | PN ---
Subjective Date of Service: 03/21/18 Interval History: Feeling short of breath today. Says she has dealt with shortness of breath for years and she has never needed oxygen. She has no chest pain or palpitations or orthopnea. The shortness of breath began when she walked to the bathroom. She is also very upset with her nurse because she needed a new IV this morning. After I examined Ms. Villarreal, I asked Teressa to ambulate her, and when she did Barbara's pulse ox dropped to 82% on room air. Family History: Unchanged from Admission Social History: Unchanged from Admission Past Medical History: Unchanged from Admission Objective Active Medications: Acetaminophen (Tylenol Tab*) 975 mg PO Q6H [facility] Last Admin: 03/21/18 08:18 Dose: 975 mg Al Hydrox/Mg Hydrox/Simethicone (Maalox Plus*) 30 ml PO Q6H PRN PRN Reason: HEARTBURN Alprazolam (Xanax Tab*) 0.25 mg PO TID PRN PRN Reason: ANXIETY Last Admin: 03/20/18 00:08 Dose: 0.25 mg Amitriptyline HCl (Elavil Tab*) 50 mg PO TID [facility] Last Admin: 03/21/18 13:32 Dose: 50 mg Apixaban (Eliquis*) 5 mg PO BID [facility] Last Admin: 03/21/18 08:17 Dose: 5 mg Aspirin (Aspirin Ec Tab*) 81 mg PO DAILY [facility] Last Admin: 03/21/18 08:17 Dose: 81 mg Atorvastatin Calcium (Lipitor*) 10 mg PO DAILY [facility]; Protocol Last Admin: 03/21/18 08:18 Dose: 10 mg Diltiazem HCl (Cardizem Tab*) 60 mg PO Q6HR [facility] Last Admin: 03/21/18 11:52 Dose: 60 mg Fluticasone Propionate (Flonase Nasal [place] 50mcg*) 1 spray BOTH NARES DAILY [facility] Last Admin: 03/21/18 08:23 Dose: 1 spray Folic Acid (Folvite Tab*) 1 mg PO DAILY [facility] Last Admin: 03/21/18 08:17 Dose: 1 mg Hydralazine HCl (Apresoline Iv*) 10 mg IV SLOW PU Q6H PRN PRN Reason: SBP>180 Cefazolin Sodium/Dextrose (Kefzol 1 Gm In Dextrose Duplex (*)) 1 gm in 50 mls @ 200 mls/hr IVPB Q8H [facility] Last Admin: 03/21/18 12:57 Dose: 200 mls/hr Lidocaine (Lidoderm 5% Patch*) 1 patch TRANSDERM DAILY [facility] Last Admin: 03/21/18 08:21 Dose: 1 patch Magnesium Hydroxide (Milk Of Magnesia Liq*) 30 ml PO BID PRN PRN Reason: CONSTIPATION Metoprolol Succinate (Toprol Xl Tab*) 150 mg PO DAILY [facility] Last Admin: 03/21/18 08:20 Dose: 150 mg Omeprazole (Prilosec Cap*) 20 mg PO DAILY [facility] Last Admin: 03/21/18 08:17 Dose: 20 mg Pharmacy Profile Note (Lidocaine Patch Remove*) 1 note N/A 2100 [facility] Last Admin: 03/20/18 20:24 Dose: 1 note Polyethylene Glycol/Electrolytes (Miralax*) 17 gm PO DAILY PRN PRN Reason: CONSTIPATION Last Admin: 03/19/18 13:59 Dose: 17 gm Senna (Senokot Tab*) 1 tab PO BEDTIME PRN PRN Reason: CONSTIPATION Last Admin: 03/20/18 20:09 Dose: 1 tab Torsemide (Demadex*) 10 mg PO DAILY [facility] Last Admin: 03/21/18 08:16 Dose: 10 mg Vital Signs - 8 hr 03/21/18 03/21/18 08:00 08:34 Temperature 98.4 F Pulse Rate 65 Respiratory 18 20 Rate Blood Pressure 150/57 (mmHg) O2 Sat by Pulse 98 Oximetry Oxygen Devices in Use Now: None Appearance: alert and in no distress, but tachypneic Eyes: No Scleral Icterus Ears/Nose/Mouth/Throat: NL Teeth, Lips, Gums Neck: NL Appearance and Movements; NL JVP Respiratory: Symmetrical Chest Expansion and Respiratory Effort Cardiovascular: - - irregular rhythm Abdominal: NL Sounds; No Tenderness; No Distention, No Hepatosplenomegaly Lymphatic: No Cervical Adenopathy Extremities: No Edema Skin: No Rash or Ulcers Neurological: Alert and Oriented x 3 Result Diagrams: 03/17/18 05:45 03/17/18 05:45 Assess/Plan/Problems-Billing Assessment: Ms. Villarreal is a 72 year old female with hx of afib, HTN, chronic pain and depression that presented to ER with complaints of fall and found to be in aflutter with RVR; then had a 6 second pause after receiving beta-ekaterina. During this admission, she was diagnosed with tachy-magy syndrome and underwent pacer placement. Today she complains of shortness of breath and is found to be hypoxic with ambulation - Patient Problems (1) Acute respiratory failure with hypoxia Current Visit: Yes Status: Acute Code(s): J96.01 - ACUTE RESPIRATORY FAILURE WITH HYPOXIA SNOMED Code(s): 81466796 Comment: she does have some evidence of bronchospasm on exam check CXR now continue supplemental O2 (2) Tachy-magy syndrome Current Visit: Yes Status: Acute Code(s): I49.5 - SICK SINUS SYNDROME SNOMED Code(s): 00630008 Comment: now stable on cardizem and metoprolol and with a pacer in place (3) Status post placement of cardiac pacemaker Current Visit: Yes Status: Acute Code(s): Z95.0 - PRESENCE OF CARDIAC PACEMAKER SNOMED Code(s): 045874717 Comment: POD 3 DC abx today needs follow up with Dr. Kerr this week and with Dr. Portillo in 3 weeks when ready for discharge (4) Unsteady gait Current Visit: Yes Status: Acute Code(s): R26.81 - UNSTEADINESS ON FEET SNOMED Code(s): 44846561 Comment: her Ct shows b/l chronic infarcts, she has spinal stenosis, and is also deconditioned PT does not recommend ongoing PT or rehab (5) Chronic kidney disease, stage 3 Current Visit: Yes Status: Chronic Code(s): N18.3 - CHRONIC KIDNEY DISEASE, STAGE 3 (MODERATE) SNOMED Code(s): 412066914 Comment: baseline (6) Chronic pain Current Visit: No Status: Chronic Code(s): G89.29 - OTHER CHRONIC PAIN SNOMED Code(s): 30331373 Comment: continue amitriptyline oxycodone discontinued yesterday after delirium yesterday she wants to try some herbal supplements at home and avoid narcotics (7) Atrial flutter with rapid ventricular response Current Visit: Yes Status: Acute Code(s): I48.92 - UNSPECIFIED ATRIAL FLUTTER SNOMED Code(s): 8327609 Comment: Resolved, rate controlled with metoprolol/cardizem --> will need to be transitioned from short acting cardizem to CD tomorrow Aneudy resumed Plan for outpatient cardioversion with Dr. Portillo (8) Home environment related disease Current Visit: Yes Status: Acute Code(s): R69 - ILLNESS, UNSPECIFIED SNOMED Code(s): 00196085 Comment: seen on 03/16 by social work, who suggested need for APS evaluation and unsafe conditions at home I discussed this with case management today; Ms. Villarreal will be re- evaluated by SW tomorrow for ongoing discussion about whether she is safe to go home (9) History of CVA (cerebrovascular accident) Current Visit: Yes Status: Acute Code(s): Z86.73 - PRSNL HX OF TIA (TIA), AND CEREB INFRC W/O RESID DEFICITS SNOMED Code(s): 353979233 Comment: continue asa and statin also eliquis for high [id number] Status and Disposition: inpatient for acute hypoxia, and also concern for unsafe conditions at home; need for APS evaluation
--- NOTE | 2018-03-21 16:10 | RAD ---
HISTORY: hypoxia COMPARISONS: March 19, 2018 VIEWS: 3: Frontal and lateral views of the chest. FINDINGS: CARDIOMEDIASTINAL SILHOUETTE: The cardiomediastinal silhouette is normal. PRATIK: The pratik are normal. PLEURA: There is a small left pleural effusion partially obscured by left-sided pacemaker. LUNG PARENCHYMA: There is a diffuse reticular pattern with indistinct pulmonary vessels. ABDOMEN: The upper abdomen is clear. There is no subphrenic gas. BONES AND SOFT TISSUES: The patient is status post median sternotomy. OTHER: A left-sided pacemaker is noted. IMPRESSION: LEFT PLEURAL EFFUSION WITH PULMONARY INTERSTITIAL EDEMA
--- NOTE | 2018-03-21 17:25 | PN ---
Hospitalist Progress Note Date of Service: 03/21/18 I have reviewed her CXR; she has a left pleural effusion. Etiology is unclear; this should not be a complication of a pacer placement. Will attempt to diurese the effusion and if that is unsuccessful and she still has this new O2 requirement, further investigation into the effusion may be warranted.
[2018-03-21] MEDS ORDERED: Furosemide IV* 10 MG/ML VIAL (40 MG) IV ONE (17:30)
[2018-03-21] MEDS ORDERED: Metoprolol Tartrate IV* 1 MG/ML 5 ML VIAL IV PRN (18:03)
[2018-03-21 18:36] LABS: ABS Basophils 0 10^3/ul (0-0.2); ABS Eosinophils 0.2 10^3/ul (0-0.6); ABS Lymphocytes 1.6 10^3/ul (1.0-4.8); ABS Nucleated RBC 0 10^3/ul; Eosinophil % 1.9 % (0-6); Hematocrit 24 % (35-47); Hemoglobin 7.3 g/dl (12.0-16.0); Lymphocyte % 14.9 % (25-47); Mean Corpuscular HGB Conc 30 g/dl (31-36); Mean Corpuscular Hemoglobin 24 pg (27-31); Mean Corpuscular Volume 78 fL (80-97); Mean Platelet Volume 9.1 um3 (7.4-10.4); Nucleated Red Blood Cells % 0; Platelet Count 134 10^3/ul (150-450); Red Cell Distribution Width 18 % (10.5-15); White Blood Count 10.9 10^3/ul (3.5-10.8)
[2018-03-21 18:52] LABS: EGFR Non-African American 42.6 (>60)
--- NOTE | 2018-03-21 18:58 | PN ---
Hospitalist Progress Note Date of Service: 03/21/18 I was called to the bedside for HR 130s and pallor. When I arrived, Ms. Carrillo is resting in bed and says she feels well, has no complaints, does not feel short of breath, has no palpitations, no orthopnea, no nausea. She is surprised by our concern and says she was just watching tv. bp 138/72 hr 133 t 99.6 100% 2L On exam, she looks pale. She is in no distress. Tachypnea is noted, similar to earlier. She is tachycardic and in an irregular rhythm. Lungs have a few rhonchi on the left side. I do not see JVP. I reviewed her CXR and spoke with Dr. Eden, who confirms that there is no radiographic difference between pleural effusion and blood. A stat cbc does show hgb 7.3. Pre-procedure hgb was 8.5 and admission hgb was 7.8. I discussed her case with Dr. Moser, who confirmed that it would be very unlikely for a hemothorax to occur from a pacer placement based on the anatomy of the procedure. It would be unusual for a complication of the procedure to occur 3 days post-op. For tonight, we will trend hgb closely, titrate metoprolol/ cardizem for better hr control (she just received metoprolol 5mg IV and hr is now in the 90s), and if she is still hypoxic in the morning a thoracentesis and/ or CT can be pursued if the team feels it is warranted. I am also giving her a unit of PRBCs based on her history of CAD.
[2018-03-21] MEDS: ALPRAZolam TAB* 0.25 MG PO PRN (20:01)
[2018-03-21] MEDS: Lidocaine Patch REMOVE* 1 NOTE MISC SCH (20:03)
[2018-03-21 23:47] LABS: ABS Basophils 0 10^3/ul (0-0.2); ABS Eosinophils 0.3 10^3/ul (0-0.6); ABS Lymphocytes 1.9 10^3/ul (1.0-4.8); ABS Monocytes 0.9 10^3/ul (0-0.8); ABS Neutrophils 7.4 10^3/ul (1.5-7.7); ABS Nucleated RBC 0 10^3/ul; Eosinophil % 2.8 % (0-6); Hematocrit 27 % (35-47); Hemoglobin 8.7 g/dl (12.0-16.0); Lymphocyte % 17.9 % (25-47); Mean Corpuscular HGB Conc 32 g/dl (31-36); Mean Corpuscular Hemoglobin 25 pg (27-31); Mean Corpuscular Volume 79 fL (80-97); Mean Platelet Volume 8.9 um3 (7.4-10.4); Nucleated Red Blood Cells % 0; Platelet Count 133 10^3/ul (150-450); Red Blood Count 3.46 10^6/ul (4.00-5.40); Red Cell Distribution Width 19 % (10.5-15); White Blood Count 10.7 10^3/ul (3.5-10.8)
[2018-03-22] MEDS: ceFAZolin 1 GM in Dextrose (*) 1 GM/50 ML BAG IVPB SCH ×2 (02:25→06:52)
[2018-03-22] MEDS: Acetaminophen TAB* 325 MG PO SCH ×2 (03:05→08:22)
--- NOTE | 2018-03-22 03:46 | OP ---
CC: Dr. Caleb Portillo * DATE OF IMPLANT: 03/18/18 - ROOM #438 DATE OF : 47 SURGEON: Allison Kerr MD ANESTHESIA: Conscious sedation. PRE-OP DIAGNOSES: Paroxysmal atrial fibrillation and tachybrady syndrome. POST-OP DIAGNOSES: Paroxysmal atrial fibrillation and tachybrady syndrome. OPERATIVE PROCEDURE: Dual-chamber pacemaker implantation. ESTIMATED BLOOD LOSS: Less than 5 cc. COMPLICATIONS: None. DESCRIPTION OF PROCEDURE: The patient was right-handed and the left subclavian fossa was prepped and draped in the usual sterile fashion. The indications, risks, and benefits had been discussed with the patient and myself the day before the procedure by Dr. Moser 2 days prior to this procedure and she is amenable to proceeding. A time-out was called. Following this, the patient received 10 cc of radiopaque dye in the left upper extremity outlining the left subclavian vein and left axillary vein. Following this, the patient received a total of 30 mg of 1% lidocaine as well as 5 mg of Versed and 52.5 mcg of fentanyl. Following local anesthesia, using a 10-blade knife, a 2-1/2 cm incision was made in the left subclavian fossa and using Bovie and blunt dissection, it was extended to the level of the pectoralis muscle. Additional lidocaine was infused and using blunt dissection, a small pocket was fashioned inferiorly and medially. Using a modified Seldinger technique, the left subclavian vein was cannulated and guidewire was inserted. This procedure was repeated with the second guidewire. Using an introducer technique, the right ventricular lead was guided into the right ventricular apex with several pauses, it was actively fixed in place, pacing and sensing thresholds were found to be good. Using the second guidewire and a second introducer, the right atrial lead was guided into the right atrial appendage, actively fixed in place. Sensing of atrial fibrillation A waves looked good. The leads were then sutured to the pocket taking care that lead position was good with 0 silk suture. Following this, the pocket was copiously irrigated, the leads were attached to the generator, the generator was placed in the pocket. Pacing and sensing thresholds were again checked. The incision was then closed using 2 layers of resorbable suture, 2-0 followed by 4-0 followed by devonte and an external dressing. FINDINGS: The system is an MRI-compatible system, [employer]. The device is a Medtronic A2DR01, serial number [id number] The atrial lead is a Medtronic, model 5076-45, serial number [id number]. The ventricular lead is a Medtronic, model 5076-52, serial number [id number]. The atrial lead sensed with P-waves at 0.7 millivolts externally, 1.1 millivolts with a pacer in the pocket and atrial lead impedance of 399 ohms. Left ventricular lead sensed with R-waves at 13.1 millivolts externally and 0.5 millivolts with the pacer in the pocket. Lead impedance was 551 ohms with a ventricular pacing threshold was 0.5 milliseconds at 1.1 volts. The patient was hemodynamically stable throughout the procedure and on transfer to the floor. We placed her on DDI mode with the lower rate of 60 beats a minute. [id number]/[facility] #: [id number] NABILA
[2018-03-22] MEDS: Diltiazem TAB* 30 MG PO SCH ×2 (05:09→12:37)
[2018-03-22 06:13] LABS: ABS Basophils 0 10^3/ul (0-0.2); ABS Eosinophils 0.3 10^3/ul (0-0.6); ABS Lymphocytes 2.3 10^3/ul (1.0-4.8); ABS Neutrophils 6.4 10^3/ul (1.5-7.7); ABS Nucleated RBC 0 10^3/ul; Hematocrit 29 % (35-47); Hemoglobin 8.8 g/dl (12.0-16.0); Lymphocyte % 22.9 % (25-47); Mean Corpuscular HGB Conc 31 g/dl (31-36); Mean Corpuscular Hemoglobin 25 pg (27-31); Mean Corpuscular Volume 80 fL (80-97); Mean Platelet Volume 9.1 um3 (7.4-10.4); Nucleated Red Blood Cells % 0.2; Platelet Count 139 10^3/ul (150-450); Red Blood Count 3.58 10^6/ul (4.00-5.40); Red Cell Distribution Width 18 % (10.5-15); White Blood Count 10.1 10^3/ul (3.5-10.8)
[2018-03-22 06:30] LABS: EGFR Non-African American 48.5 (>60)
[2018-03-22 08:03] VITALS: BP 151/64
[2018-03-22] MEDS: Apixaban* 5 MG TAB PO SCH (08:21)
[2018-03-22] MEDS: Amitriptyline TAB* 50 MG PO SCH (08:21)
[2018-03-22] MEDS: Folic Acid TAB* 1 MG PO SCH (08:21)
[2018-03-22] MEDS: Torsemide TAB* 20 MG PO SCH (08:22)
[2018-03-22] MEDS: Metoprolol Succinate XL TAB* 50 MG PO SCH (08:23)
[2018-03-22] MEDS: Atorvastatin* 10 MG TAB PO SCH (08:23)
[2018-03-22] MEDS: Aspirin EC TAB* 81 MG TAB.EC PO SCH (08:23)
[2018-03-22] MEDS: Lidocaine PATCH 5%* 1 PATCH TRANSDERM SCH (08:23)
[2018-03-22] MEDS: Omeprazole CAP* 20 MG PO SCH (08:23)
[2018-03-22] MEDS: Fluticasone NASAL SPRAY 50MCG* 16 gm SPRAY BTL BOTH NARES SCH (08:26)
--- NOTE | 2018-03-23 17:03 | DS ---
AMENDED REPORT NOW INCLUDES COSIGNER DESIGNATION - ESIGNED BEFORE ADJUSTMENT CC: Dr. Portillo; Dr. Boo Batres * DISCHARGE SUMMARY: DATE OF ADMISSION: 03/15/18 DATE OF DISCHARGE: 03/22/18 PATIENT OF ADMITTING HOSPITALIST: Dr. Romero Garibay. PRIMARY CARE PROVIDER: Dr. Boo Batres. PRIMARY WEB CONTENT & SOCIAL MEDIA MANAGER: Dr. Caleb Portillo. CONSULTING CARDIOLOGISTS: Dr. Moser and Dr. Kerr. ATTENDING HOSPITALIST WHILE PATIENT HERE: Dr. Lorena Laguna.* (DICTATED BY ELIJAH EDGE) ADMISSION DIAGNOSES: 1. Status post fall with right hip pain. 2. Dizzy episodes. 3. Hypertension. 4. Atrial fibrillation. 5. Fibromyalgia. 6. Chronic back and neck pain. 7. Osteoporosis. 8. Atrial fibrillation with rapid ventricular response. 9. Chronic kidney disease, stage 3. 10. Tachybrady syndrome. 11. Anxiety and depression. DISCHARGE DIAGNOSES: 1. Status post fall with right hip pain. 2. Dizzy episodes. 3. Hypertension. 4. Atrial fibrillation. 5. Fibromyalgia. 6. Chronic back and neck pain. 7. Osteoporosis. 8. Atrial fibrillation with rapid ventricular response. 9. Chronic kidney disease, stage 3. 10. Tachybrady syndrome. 11. Anxiety and depression. CONSULTATION: Dr. Moser and Dr. Kerr from Cardiology. PROCEDURE: Pacemaker placement on 03/18/18. HISTORY OF PRESENT ILLNESS: Ms. Villarreal is a 72-year-old female with past medical history significant for hypertension, atrial fibrillation, fibromyalgia , and chronic pain, who presented to the emergency room on 03/15/18 after she sustained a fall at home. The patient apparently bent over to adjust the knobs on her heater when she lost her balance and fell into a chair striking the back of her head. She described landing on her right hip as well, but there was no loss of consciousness. She also reports some nausea this morning; however, denied any chest pain, shortness of breath or any other associated symptoms. She has been seen by Dr. Portillo in the past, given her history of atrial fibrillation for consideration of a cardioversion. In the emergency room, she was found to have AFib/Aflutter and also laboratory workup showing mild leukocytosis. She was slightly anemic; however, appeared to be near her baseline. Her troponin was also slightly elevated thought to be likely related to a stress from her fall. She has chronically elevated troponin. She received 2 bolus doses of diltiazem in the ER and her heart rate seemed to be better controlled. Her x-ray showed no signs of fracture of the right hip and her lumbar spine x-ray showed possible T12 fracture that appeared to be new. Head CT also showed no evidence of intracranial hemorrhage. Given her recent fall and also her known history of atrial fibrillation/flutter, we were asked to see the patient to consider admission. HOSPITAL COURSE: The patient was admitted on 03/15/18 under hospitalist services. She was observed closely in the telemetry unit and she was noted that night after admission to continue to have multiple missed beats of third-degree heart block and becoming occasionally bradycardic, briefly at a rate of 9 beats per minute. The findings were discussed with her daughter and a cardiac consultation was obtained as well by Dr. Buster Moser. Her EKG was repeated showing evidence of atrial fibrillation. Cardiac consultation recommended that the patient undergo a dual chamber pacemaker implantation given her 6-second pause last night on IV diltiazem. It appeared that the patient has had evidence of tachybrady syndrome documented in the past by Dr. Portillo as well. The patient has been on Eliquis, which needed to be stopped for another 24 hours prior to the plans of pacemaker placement. The patient continued to be observed closely in the telemetry unit. She denied any evidence of chest pain or other associated symptoms. Her laboratory workup was drawn on a daily basis showing persistent anemia that appeared to be at her baseline with hemoglobin of 9 and hematocrit of 30. Chemistry panel was also drawn on a daily basis with no evidence of any electrolyte abnormality. On 03/18/18, the patient was taken to the operating room where she had a successful dual-chamber pacemaker placement. Followup EKG on the following day revealed paced rhythm with no abnormalities noted. The patient continued to improve gradually on a daily basis. She was started on metoprolol in addition to her Eliquis, aspirin, torsemide, and Cardizem from home. Her vitals were checked on a daily basis showing no evidence of bradycardia. She continued to improve and on discharge day, she appeared to be stable. Her H and H continued to slightly drop since admission for which she was given a unit of packed red blood cells the day before discharge and repeated H and H show no significant decline. Chest x-ray was obtained showing mild pleural effusion that was discussed by Dr. Bowers with the radiologist and again with Dr. Moser to rule out any possibility of hemothorax. The patient continued to be hemodynamically stable, maintaining good oxygen saturation. She was weaned off her oxygen and was eventually discharged home on room air and she was planning to follow up with primary care physician as well as Dr. Portillo and Dr. Kerr as an outpatient. On discharge morning, her vitals revealed temperature of 98.6, pulse of 66, respirations of 18 with O2 sat of 100% on room air, her blood pressure was 151/ 64. Her heart was regular rate and rhythm without rubs, murmurs, or gallops. Her lungs were clear to auscultation bilaterally. Her abdomen was soft, nontender, and nondistended. The patient will be discharged to home today and plan to follow up with Dr. Kerr for incision recheck as well as Dr. Portillo, her outpatient customer supply coordinator. DISCHARGE MEDICATIONS: Include: 1. Acetaminophen 500 mg p.o. q.12 hours as needed for fever or pain. 2. Amitriptyline 50 mg p.o. t.i.d. 3. Eliquis 5 mg p.o. b.i.d. 4. Aspirin 81 mg p.o. daily. 5. Baclofen 10 mg 2 tablets p.o. daily. 6. Digoxin 120 mcg p.o. daily. 7. Fluticasone nasal spray, 1 spray in each nostril once daily. 8. Folic acid 1 mg p.o. daily. 9. Ibuprofen 600 mg p.o. b.i.d. 10. Omeprazole 20 mg p.o. daily. 11. Pravastatin 40 mg p.o. daily. 12. Torsemide 5 mg p.o. daily. 13. Cardizem 240 mg p.o. daily. 14. Metoprolol 150 mg p.o. daily. 15. Percocet 5/325 one tablet q.6 hours as needed for pain. ELIJAH EDGE [id number]/[facility] #: [id number] NABILA
== END 2018-03-22 14:45 | disposition home health service (06) | DRG 242 ==
LOC: ED 06:05 → ICU 13:33 → MEDTELE 03-19 17:48
PROVIDERS: ADMIT Internal Medicine; ATTEND Internal Medicine
PROC: 0JH606Z Insertion of Pacemaker, Dual Chamber into Chest Subcutaneous Tissue and Fascia, Open Approach (ICD-10-PCS; 2018-03-18)
PROC: 02H63JZ Insertion of Pacemaker Lead into Right Atrium, Percutaneous Approach (ICD-10-PCS; 2018-03-18)
PROC: 02HK3JZ Insertion of Pacemaker Lead into Right Ventricle, Percutaneous Approach (ICD-10-PCS; 2018-03-18)
PROC: 30233N1 Transfusion of Nonautologous Red Blood Cells into Peripheral Vein, Percutaneous Approach (ICD-10-PCS; principal; 2018-03-21)
DX: I49.5 Sick sinus syndrome (principal); J96.01 Acute respiratory failure with hypoxia; I44.2 Atrioventricular block, complete; M48.56XA Collapsed vertebra, not elsewhere classified, lumbar region, initial encounter for fracture; I13.0 Hypertensive heart and chronic kidney disease with heart failure and stage 1 through stage 4 chronic kidney disease, or unspecified chronic kidney disease; I48.92 Unspecified atrial flutter; I48.0 Paroxysmal atrial fibrillation; R74.8 Abnormal levels of other serum enzymes; D72.829 Elevated white blood cell count, unspecified; M79.7 Fibromyalgia; E78.5 Hyperlipidemia, unspecified; M25.551 Pain in right hip; F41.9 Anxiety disorder, unspecified; F32.9 Major depressive disorder, single episode, unspecified; W18.39XA Other fall on same level, initial encounter; D64.9 Anemia, unspecified; M81.0 Age-related osteoporosis without current pathological fracture; I50.9 Heart failure, unspecified; I25.10 Atherosclerotic heart disease of native coronary artery without angina pectoris; G89.4 Chronic pain syndrome; I27.20 Pulmonary hypertension, unspecified; I08.2 Rheumatic disorders of both aortic and tricuspid valves; M47.812 Spondylosis without myelopathy or radiculopathy, cervical region; J45.909 Unspecified asthma, uncomplicated; K59.00 Constipation, unspecified; N18.3 Chronic kidney disease, stage 3 (moderate); R42 Dizziness and giddiness; Z66 Do not resuscitate; R26.9 Unspecified abnormalities of gait and mobility; Z79.01 Long term (current) use of anticoagulants; Y92.9 Unspecified place or not applicable; Z95.3 Presence of xenogenic heart valve; Z90.710 Acquired absence of both cervix and uterus; Z90.49 Acquired absence of other specified parts of digestive tract; Z82.49 Family history of ischemic heart disease and other diseases of the circulatory system; Z83.3 Family history of diabetes mellitus; Z80.7 Family history of other malignant neoplasms of lymphoid, hematopoietic and related tissues; Z86.73 Personal history of transient ischemic attack (TIA), and cerebral infarction without residual deficits; Z98.51 Tubal ligation status; Z87.891 Personal history of nicotine dependence
CPT/HCPCS: 33208; 36415; 36600; 70450; 71045; 71046; 72110; 72125; 76937; 80048; 80053; 81003; 82607; 82728; 82803; 83540; 83550; 83735; 84484; 85025; 85027; 86850; 86900; 86901; 86922; 90686; 93005; 99156; 99157; 99285; A9270-GY; C1785; C1898; G8978-GP-CI; G8978-GP-CJ; G8979-GP-CH; G8979-GP-CI; G8980-GP-CI; J0360; J0690; J1940; J2250; J2310; J3010; J3490; P9040

== ENCOUNTER 2018-04-13 21:06 | Emergency (ER) | payer MEDICARE, OTHER ==
--- OUTSIDE RECORDS SUMMARY | 2018-04-13 21:41 | XMS REPORT ---
:1945 External Reference #:[id number] Author Organization [facility] Address [address] [place] [address] [place] [address] Phone [phone] Care Team Providers Name Role Phone Boo Batres III, MD Primary Care Physician Unavailable Payers Type Date Identification Numbers Payment Provider Subscriber Commercial Effective: Policy Number: Irina Jimenez E 2017 [id number] Option/Domenico Villarreal pr PayID: [id number] [address] [address] Attn: [place] [address] Medigap Part B Policy Number: [id number] For Chris Villarreal PayID: [id number] [address] [place] [address] Commercial Expires: 2017 Policy Number: Sergey Villarreal [id number] PayID: [id number] [address] [place] [address] Medigap Part B Expires: 2017 Policy Number: Sergey Villarreal [id number] PayID: [id number] [address] [place] [address] Workers Onset: Policy Number: State Insurance Maricarmen E Compensation 1985 [id number] Erasmo Vilalrreal Group Number: [id number] [address] [address] Group Name: % [place] [address] [place]: [email or web address] Workers Onset: Policy Number: State Insurance Maricarmen E Compensation 1985 [id number] Erasmo Villarreal Group Number: [id number] [address] [address] Group Name: 10% [place] [address] [place]: [email or web address] Workers Onset: Policy Number: State Insurance Maricarmen E Compensation 1985 [id number] Erasmo Villarreal Group Number: [id number] [address] [address] Group Name: 25% [place] [address] [place]: [email or web address] Workers Onset: Policy Number: State Insurance Maricarmen E Compensation 1985 [id number] Erasmo Villarreal Group Number: [id number] [address] [address] Group Name: 10% [place] [address] [place]ID: [email or web address] Advance Directives Type Date Description Status Comment [...] Batres M.D. Active Onset: 11/19/2011 Chest pain Caleb Portillo, Rosie Ann Resolved: 12/17/2016 Family History Date Family Member(s) [...] Form Strength Qnty SIG Indications Ordering Provider Apap Extra 03/26 Active Tablets 500mg 1 tabs every Sophy S. Strength /2017 12hrs as korey Peoples pain. N.P. mdd of acetaminophen 3000mg. Metoprolol 03/25 Active Tablets ER 150 30tab 1 by mouth Sophy S. Succinate ER 24HR s every day Shelton, N.P. Diltiazem HCL 02/14 Active Tablets ER 360mg 90tab 1 by mouth Sophy S. ER Coated 24HR s every day Germain Peoples N.P. Digoxin 02/10 Active Tablets 125mcg 90tab 1 by mouth Caleb /2017 s every day Carlene Portillo M.D. Torsemide 11/26 Active Tablets 5mg 90tab 2 by mouth Boo E. /2017 s every day as Gisel needed M.D. Amitriptyline 10/28 Active Tablets 50mg 90tab take 1 tablet Boo E. HCL s by mouth Gisel, three times a M.D. day Voltaren 07/16 Active Gel 1% 300gm apply 2-3 M65.871 Boo E. times daily Gisel, to affected M.D. ankle Omeprazole 06/[address] 20mg 90cap take one Boo E. s capsule by Gisel, mouth once M.D. daily Fluticasone 11/16 Active Suspension 50mcg/Act 16uni use one spray Akhil -Ronan Propionate ts in each D. Garland, nostril every M.D.,FACP day Pravastatin 11/12 Active Tablets 40mg 90tab take 1 tablet Caleb Sodium s by mouth at F. bedtime Marissa Portillo Centrum Silver 12/07 Active Tablets 1 po qd , Marissa Garcia Fish Oil 12/07 Active Capsules 1000mg 1 po qd ana , Marissa Garcia Lidoderm Active Patches 5% 30uni topical 10 Unknown ts hours prn Aspir-[address] 81mg 90tab 3 by mouth as Boo Lennon / s needed Marissa Batres Baclofen Active Tablets 10mg 90tab 1/2 tab by Boo Lennon / s mouth twice Gisel, daily M.DLadarius Calcium Active Tablets 600mg 1 po bid Unknown [facility] Slow Active Tablets ER 143(45Fe) 1 po qd Unknown Release Iron mg Vit C Active Chewtabs 125mg take one capsule bid Zinc Active Capsules 1 by mouth Unknown bid Magnesium Active 2 po qd Unknown Sulfate Eliquis Active Tablets 5mg 1 by mouth Unknown 0000 twice a day Folic Acid Active Tablets 1mg 90tab 1 by mouth Boo Lennon s every day Marissa Batres Diltiazem HCL 02/12 Hx Caps ER 360mg 90cap 1 by mouth Boo Lennon ER 24HR s every day Jennifer Batres M.D. 02/12 Demadex 03/03 Hx Tablets 10mg 14tab 1 tablet Caleb s daily as F. - needed for Lindsey, 08/22 weight gain > M.D. 3 lbs Iron 03/03 Hx Tablets 325mg 90tab one by mouth Caleb Supplement s daily F. - Lindsey, 02/09 M.D. Metoprolol 10/21 Hx Tablets 25mg 90tab 1/2 by mouth Caleb Tartrate s twice a day F. - , 11/25 M.D. Iron (Ferrous 10/17 Hx Tablets 256(28Fe) Caleb Gluconate) /2016 mg F. - user, 10/17 M.D. Iron 10/17 Hx Tablets 325mg 30tab 1 tab by Caleb High-Potency s mouth every F. - day , 02/09 M.D. Lisinopril 10/14 Hx Tablets 5mg 90tab 1 by mouth s every day F. - hold as of , 11/07 4.25.17 M.D. Cartia XT 04/10 Hx Caps ER 120mg 180ca 1 by mouth in I10 24HR ps the morning F. - and 1 at [facility] [place], [place]25 night M.D. Augmentin 10/01 Hx Tablets 500-125mg 20tab 1 by mouth Boo Lennon s twice a day Jennifer Batres M.D. 03/05 Metoprolol 07/30 Hx Tablets ER 25mg 45tab 1/2 tab daily Caleb Succinate ER 24HR s (patient F. - brought in a , 10/21 Metoprolol .D Tar bottle) Prolia 02/27 Hx Solution 60mg/ml 60mg 60 mg sc M81.0 Boo Lennon q6mon Jennifer Batres M.D. 02/09 Z92.29 Prolia 08/25/2013 - Hx Solution 60mg/ml 60mg 60 mg sc Boo Lennon 01/09/2014 q6mon Marissa Batres Metoprolol Tartrate 07/29/2013 - Hx Tablets 25mg 90tabs 1/2 tab by Caleb 07/30/2015 mouth twice F. Mauser, a day M.D. Alendronate Sodium 03/04/2013 - Hx Tablets 70mg 12tabs take one Boo Lennon 01/26/2015 tablet by mallory Batres once a M.D. week Metoprolol Tartrate 11/19/2011 - Hx Tablets 25mg 90tabs Stopped Caleb 08/01/2013 taking 1 lashae Roman. Marissa 1/2 po bid Septra DS 08/08/2011 - [...] Tablets 1mg 60tabs 1 po bid Boo Lennon 03/27/2011 Marissa Batres Chantix Starting 08/13/2010 - Hx Tablets 0.5mg X 1tabs use as Boo Thomas. Month Box 09/27/2010 11 & 1 mg directed Stephani Batres M.D. Lopressor 04/18/2010 - Hx Tablets 25mg 270tab 1 po tid Caleb 06/05/2011 s Carlene Portillo M.D. Amoxicillin 03/19/2010 - Hx Tablets 500mg 30tabs 1 po tid for 4 Boo Saji 04/25/2010 10 days 6 Lauren Batres M.D. . 9 Lopressor 03/15/2010 - Hx Tablets 25mg 180tab 1 po tid Boo Lennon 04/18/2010 s Marissa Batres Lopressor 03/05/2010 - Hx Tablets 50mg 1/2 po tid Caleb 03/15/2010 Carlene Portillo M.D. Lopressor 02/13/2010 - Hx Tablets 50mg 90tabs 1/2 po at pm Caleb 03/05/2010 Carlene Portillo M.D. Septra DS 02/06/2010 - Hx Tablets 800-160mg 6tabs 1 po bid for Boo Lennon 02/13/2010 3 days Marissa Batres Chantix Continuing 12/19/2009 - Hx Tablets 1mg 1month 1 po bid Boo Lennon Month Kristopher 08/13/2010 corbett Marissa [facility] 11/20/2009 - Hx eval/Rx for Boo Saji 12/19/2009 chronic back Gisel pain Ami.D. Chantix Starting 11/20/2009 - Hx Tablets 0.5mg X per 3 Boo Lennon Month Kristopher 12/19/2009 11 & 1 mg directions 3 Gisel, X 8 M.D. . 4 Flonase 09/28/2009 - Hx Suspension 50mcg/Act 1Bottl 1 intranasal 4 Boo Lennon 11/16/2012 e puff to each 7 Gisel nostril 7 M.D. daily . 8 Clonazepam [...] q6h David ophen 10/15/2016 s (pt states Pachikara, she takes M.D. routinely every 4 hours) [...] 180cap 2 tabs po Thananart, 08/07/2009 s qhs Marissa Garcia Tizanidine HCL - Hx Tablets [...] mouth Boo Lennon 10/28/2017 s three times Gisel a andrew Ann Flexeril - Hx Tablets 10mg 60tabs 1 [...] by mouth Caleb ER 10/21/2016 every day maeve Roman as of [facility] 4.25.17 Furosemide - Hx Tablets 20mg 90tabs 1 by mouth Caleb 11/07/2016MondaysCarlene, Wednesdays, Marissa Fridays - restart 10/21/16(patie nt [...] Anitra 12/17/2016 based on Yas, results of [facility] patients Inr Acetaminophen - Hx Tablets 325mg [...] Tablets 2 po qd Unknown Formula 08/22/2017 Metoprolol Tartrate - Hx Tablets 50mg 180tab 1 tab twice Boo E. 03/25/2018 s daily. Marissa Batres Diltiazem CD - Hx Caps ER 24HR 360mg 90caps 1 by mouth Sophy S. 02/14/2018 every day Shelton N.PLadarius Ibuprofen - Hx Capsules 200mg as needed [...] CPT Code Status Date Vaccine Lot # [id number] Given 03/24/2017 Influenza Virus Vaccine, Quadrivalent, Split, Preservative Free 04599 Given 03/24/2017 Pneumococcal Conjugate Vaccine 13 Valent For Intramuscular Use 06136 Given 04/30/2016 Influenza Virus Vaccine, Quadrivalent, Split [id number] Virus, [place] Use 23671 Given 06/25/2015 Influenza Virus Vaccine, Quadrivalent, Split, [id number] Preservative Free 43701 Given 09/19/2014 Pneumococcal Conjugate Vaccine 13 Valent For [id number] Intramuscular Use 44313 Given 07/28/2013 Tdap - Tetanus/Diptheria/Acellular Pertussis [id number] 08652 Given 03/11/2013 Pneumonia Vaccine [id number] 88449 Given 03/11/2013 Flu Vaccine Split Virus Preservative Free For [id number] Indiv [id number] Older [id number] Given 03/27/2011 Fluzone Vaccine [id number] 52216 Given 05/24/2009 Influenza Virus Vaccine, Pandemic Formulation [id number] 01963 Given 05/24/2009 Administration Swine Flu Shot 07191 Given 06/24/2004 Td Toxoids Adsorbed For Use [id number] Or Older For Intramuscular Use Vital Signs Date Vital Result Comment 03/26/2018 Height 65 inches 5'5" Weight 132.00 lb Heart Rate 84 /min BP Systolic Sitting 100 mmHg BP Diastolic Sitting 79 mmHg BP Systolic Standing 115 mmHg BP Diastolic Standing 80 mmHg Respiratory Rate 19 /min Pain Level 5 back and ribs on pain managment O2 % BldC Oximetry 97 % BMI (Body Mass Index) 22.0 kg/m2 02/12/2018 Height 65 inches 5'5" Weight 149.00 [...] Test Date Test Result H/L Range Note CBC Auto Diff 03/15/2018 White Blood Count 12.4 10^3/uL High 3.5-10.8 Red Blood Count 3.87 10^6/uL Low 4.00-5.40 Hemoglobin 9.0 g/dL Low 12.0-16.0 Hematocrit 30 % Low 35-47 Mean Corpuscular Volume 78 fL Low 80-97 Mean Corpuscular Hemoglobin 23 pg Low 27-31 Mean Corpuscular HGB Conc 30 g/dL Low 31-36 Red Cell Distribution Width 18 % High 10.5-15 Platelet Count 153 10^3/uL 150-450 Mean Platelet Volume 8.6 um3 7.4-10.4 Abs Neutrophils 8.3 10^3/uL High 1.5-7.7 Abs Lymphocytes 3.1 10^3/uL 1.0-4.8 Abs Monocytes 0.9 10^3/uL High 0-0.8 Abs Eosinophils 0.1 10^3/uL 0-0.6 Abs Basophils 0.1 10^3/uL 0-0.2 Abs Nucleated RBC 0 10^3/uL Granulocyte % 67.3 % 38-83 Lymphocyte % 24.8 % Low 25-47 Monocyte % 7.0 % 0-7 Eosinophil % 0.5 % 0-6 Basophil % 0.4 % 0-2 Nucleated Red Blood Cells % 0 Comp Metabolic Panel 03/15/2018 Sodium 142 mmol/L 135-145 Potassium 3.9 mmol/L 3.5-5.0 Co2 Carbon Dioxide 21 mmol/L Low 22-32 Glucose 89 mg/dL 70-100 Blood Urea Nitrogen 32 mg/dL High 6-24 Creatinine 1.21 mg/dL High 0.51-0.95 BUN/Creatinine Ratio 26.4 High 8-20 Calcium 9.0 mg/dL 8.6-10.3 Total Protein 6.2 g/dL Low 6.4-8.9 Albumin 3.6 g/dL 3.2-5.2 Globulin 2.6 g/dL 2-4 Albumin/Globulin Ratio 1.4 1-3 Total Bilirubin 0.20 mg/dL 0.2-1.0 Alkaline Phosphatase 98 U/L 34-104 Alt 18 U/L 7-52 Ast 15 U/L 13-39 Egfr Non- 43.9 >60 Egfr 53.1 >60 1 Chloride 115 mmol/L High 101-111 Anion Gap 6 mmol/L 2-11 Laboratory test finding 03/15/2018 Magnesium 2.2 mg/dL 1.9-2.7 Troponin-I (TnI) 0.04 ng/mL High <0.04 2 Laboratory test finding 03/05/2018 B-Type Natriuretic Peptide BNP 610 pg/mL High 3 Magnesium 2.1 mg/dL 1.9-2.7 Digoxin 1.5 ng/ml 0.8-2.0 CBC Auto Diff 03/05/2018 White Blood Count 7.8 10^3/uL 3.5-10.8 Red Blood Count 3.41 10^6/uL Low 4.00-5.40 Hemoglobin 8.4 g/dL Low 12.0-16.0 Hematocrit 27 % Low 35-47 Mean Corpuscular Volume 80 fL 80-97 Mean Corpuscular Hemoglobin 25 pg Low 27-31 Mean Corpuscular HGB Conc 31 g/dL 31-36 Red Cell Distribution Width 17 % High 10.5-15 Platelet Count 209 10^3/uL 150-450 Mean Platelet Volume 9.1 um3 7.4-10.4 Abs Neutrophils 5.4 10^3/uL 1.5-7.7 Abs Lymphocytes 1.7 10^3/uL 1.0-4.8 Abs Monocytes 0.6 10^3/uL 0-0.8 Abs Eosinophils 0.1 10^3/uL 0-0.6 Abs Basophils 0.1 10^3/uL 0-0.2 Abs Nucleated RBC 0 10^3/uL Granulocyte % 69.0 % 38-83 Lymphocyte % 21.4 % Low 25-47 Monocyte % 7.6 % High 0-7 Eosinophil % 1.0 % 0-6 Basophil % 1.0 % 0-2 Nucleated Red Blood Cells % 0.1 Iron & Iron Binding Capacity 03/05/2018 Iron 16 g/dL Low 50-212 Unsaturated Iron Binding 382 g/dL Total Iron Binding Capacity 398 g/dL 250-450 Transferrin 284 mg/dL 203-362 % Iron Saturation 4 % Low 15-55 [facility] 03/05/2018 Creatine Kinase(CK) 48 U/L 10-223 Lipid Profile (Trig/Chol/HDL) 03/05/2018 Triglycerides 93 mg/dL 4 Cholesterol 130 mg/dL 5 HDL Cholesterol 60.3 mg/dL 6 LDL Cholesterol 51 mg/dL 7 Comp Metabolic Panel 03/05/2018 Sodium 145 mmol/L 135-145 Potassium 3.7 mmol/L 3.5-5.0 Co2 Carbon Dioxide 25 mmol/L 22-32 Glucose 83 mg/dL 70-100 Blood Urea Nitrogen 28 mg/dL High 6-24 Creatinine 1.05 mg/dL High 0.51-0.95 BUN/Creatinine Ratio 26.7 High 8-20 Calcium 8.8 mg/dL 8.6-10.3 Total Protein 5.8 g/dL Low 6.4-8.9 Albumin 3.4 g/dL 3.2-5.2 Globulin 2.4 g/dL 2-4 Albumin/Globulin Ratio 1.4 1-3 Total Bilirubin 0.30 mg/dL 0.2-1.0 Alkaline Phosphatase 95 U/L 34-104 Alt 18 U/L 7-52 Ast 18 U/L 13-39 Egfr Non- 51.7 >60 Egfr 62.5 >60 8 Chloride 112 mmol/L High 101-111 Anion Gap 8 mmol/L 2-11 Laboratory test finding 01/06/2018 Troponin-I (TnI) 0.04 ng/mL High <0.04 9 CBC Auto Diff 01/06/2018 White Blood Count [...] B-Type Natriuretic Peptide BNP 680 pg/mL High 10 Lactic Acid 0.5 mmol/L 0.5-2.0 11 Troponin-I (TnI) 0.04 ng/mL High <0.04 12 Comp Metabolic Panel 01/06/2018 Sodium 141 mmol/L [...] Egfr Non- 42.6 >60 Egfr 51.6 >60 13 Chloride 113 mmol/L High 101-111 Anion Gap 5 mmol/L 2-11 Laboratory test finding 01/06/2018 Procalcitonin < 0.1 ng/mL <0.6 14 D Dimer Quantitative 260 ng/mL High Less Than 230 15 Magnesium 1.9 mg/dL 1.9-2.7 16 TSH (Thyroid Stim Horm) 1.06 mcIU/mL 0.34-5.60 17 Urine Culture And 11/07/2017 Urine Culture SEE RESULT BELOW 18 Sensitivities Inr/Protime 11/07/2017 Inr 1.05 High 0.77-1.02 [...] finding 11/07/2017 Lactic Acid 0.7 mmol/L 0.5-2.0 19 B-Type Natriuretic Peptide BNP 206 pg/mL High 20 Comp Metabolic Panel 11/07/2017 Sodium 142 mmol/L [...] Egfr Non- 57.3 >60 Egfr 73.7 >60 21 Laboratory test finding 11/07/2017 Magnesium 2.0 mg/dL 1.9-2.7 C Reactive Protein 17.70 mg/L High < 5.00 22 Troponin-I (TnI) 0.16 ng/mL High <0.04 23 TSH (Thyroid Stim Horm) 0.91 mcIU/mL 0.34-5.60 Urinalysis Profile 11/07/2017 Urine Color Ilana Urine Appearance Turbid Urine Specific [place] 1.021 1.010-1.030 Urine pH 7.0 5-9 Urine Urobilinogen Negative Negative Urine Ketones Negative Negative Urine Protein 2+(100 mg/dL) Negative Urine Leukocytes 3+ Negative Urine Blood Negative Negative * * Negative 24 Urine Nitrite Negative Negative Urine Bilirubin Negative [...] finding 09/23/2017 Lactic Acid 0.6 mmol/L 0.5-2.0 25 Inr/Protime 09/23/2017 Inr 0.90 0.77-1.02 Laboratory test [...] Egfr Non- 28.5 >60 Egfr 36.7 >60 26 Laboratory test finding 09/23/2017 Magnesium 3.0 mg/dL High 1.9-2.7 Lipase 27 U/L 11.0-82.0 C Reactive Protein 26.57 mg/L High < 5.00 27 Troponin-I (TnI) 0.09 ng/mL High <0.04 28 TSH (Thyroid Stim Horm) 2.02 mcIU/mL 0.34-5.60 Type & Screen 09/23/2017 Patient Blood Type A Positive Antibody Screen NEGATIVE CBC Auto Diff 03/03/2017 White Blood Count [...] Nucleated Red Blood Cells % 0.1 [facility] 03/03/2017 Creatine Kinase(CK) 61 U/L 10-223 [...] Egfr Non- 54.8 >60 Egfr 70.5 >60 29 Lipid Profile (Trig/Chol/HDL) 03/03/2017 Triglycerides 90 mg/dL 30 Cholesterol 181 mg/dL 31 HDL Cholesterol 73.3 mg/dL 32 LDL Cholesterol 90 mg/dL 33 Laboratory test finding 03/03/2017 TSH (Thyroid Stim 2.36 mcIU/mL 0.34- 5.60 Horm) Iron & Iron Binding 03/03/2017 Iron 34 g/dL Low 50-212 Capacity Unsaturated Iron Binding 277 g/dL Total Iron Binding Capacity 311 g/dL 250-450 % Iron Saturation 11 % Low 15-55 Laboratory test finding 03/03/2017 B-Type Natriuretic 259 pg/mL High 34 Peptide BNP Inr/Protime 03/03/2017 Inr 0.88 Low 0.89-1.11 Protime W/ Inr 12/17/2016 Prothrombin Time 20.7 Inr 1.7 Protime W/ Inr 12/10/2016 Prothrombin Time 19.8 Inr 1.7 Protime W/ Inr 11/26/2016 Prothrombin Time 23.9 Inr 2.0 Protime W/ Inr 11/19/2016 Prothrombin Time 34.9 Inr 2.9 Inr/Protime 11/13/2016 Inr 3.22 High 0.89-1.11 Basic Metabolic Panel 11/10/2016 Sodium 137 mmol/L 133-145 Potassium 4.4 mmol/L 3.5-5.0 Chloride 105 mmol/L 101-111 Co2 Carbon Dioxide 25 mmol/L 22-32 Anion Gap 7 mmol/L 2-11 Glucose 85 mg/dL 70-100 Blood Urea Nitrogen 12 mg/dL 6-24 Creatinine 0.88 mg/dL 0.51-0.95 BUN/Creatinine Ratio 13.6 8-20 Calcium 9.4 mg/dL 8.6-10.3 Egfr Non- 63.5 >60 Egfr 81.7 >60 35 CBC Auto Diff 11/10/2016 White Blood Count [...] test finding 11/10/2016 Magnesium 1.9 mg/dL 1.9-2.7 36 Laboratory test finding 11/10/2016 B-Type Natriuretic 262 pg/mL High 37 Peptide BNP Inr/Protime 11/10/2016 Inr 2.51 High 0.89-1.11 Inr/Protime 11/06/2016 Inr 1.40 High 0.89-1.11 Inr/Protime 10/30/2016 Inr 1.48 High 0.89-1.11 Protime W/ Inr 10/27/2016 Inr 2.7 Protime W/ Inr 2016 Inr 1.5 Protime W/ Inr 10/20/2016 Inr 1.2 Iron & Iron Binding 10/16/2016 Iron 28 g/dL Low 50-212 Capacity Unsaturated Iron Binding 252 g/dL Total Iron Binding Capacity 280 g/dL 250-450 % Iron Saturation 10 % Low 15-55 CBC Auto Diff 10/16/2016 White Blood Count [...] Nucleated Red Blood Cells % 0 Inr/Protime 10/16/2016 Inr 1.44 High 0.89-1.11 Protime W/ Inr 10/16/2016 Inr 1.5 Laboratory test finding 10/16/2016 B-Type Natriuretic 370 pg/mL High 38 Peptide BNP Magnesium 2.1 mg/dL 1.9-2.7 Basic Metabolic Panel 10/16/2016 Sodium 139 mmol/L 133-145 Potassium 5.0 mmol/L 3.5-5.0 Chloride 107 mmol/L 101-111 Co2 Carbon Dioxide 22 mmol/L 22-32 Anion Gap 10 mmol/L 2-11 Glucose 75 mg/dL 70-100 Blood Urea Nitrogen 31 mg/dL High 6-24 Creatinine 1.26 mg/dL High 0.51-0.95 BUN/Creatinine Ratio 24.6 High 8-20 Calcium 9.3 mg/dL 8.6-10.3 Egfr Non- 42.1 >60 Egfr 54.1 >60 39 CBC Auto Diff 10/07/2016 White Blood Count [...] Egfr Non- 58.3 >60 Egfr 75.0 >60 40 Protime W/ Inr 10/07/2016 Prothrombin Time 12.0 Inr 1.0 Laboratory test finding 09/22/2016 Troponin-I (TnI) 0.90 ng/mL High <0.04 41 Arterial Blood Gas 09/05/2016 PH Arterial 7.34 Low 7.35-7.45 42 Pco2 Arterial 43 mmHg 35-45 42 Po2 Arterial 63 mmHg Low 80-100 42 O2 Saturation Arterial 89.4 % Low 95-98 42 Base Excess Arterial -2.6 Low -2.0-2.0 42, 43 Hco3 Arterial 22.7 mmol/L 19-31 42 Venous Blood Gas 09/05/2016 Venous Blood pH 7.32 Low 7.33-7.43 44 Venous Pco2 47 mmHg 41-51 44 Venous Po2 37 mmHg 35-45 44 Venous O2 Saturation 70.6 % 70-80 44 Venous Blood Base Excess -2.1 Low 0-4 44, 45 Venous Bicarbonate Hco3 22.6 mmol/L Low 24-28 44 Venous Blood Gas 09/05/2016 Venous Blood pH 7.32 Low 7.33-7.43 46 Venous Pco2 48 mmHg 41-51 46 Venous Po2 35 mmHg 35-45 46 Venous O2 Saturation 65.7 % Low 70-80 46 Venous Blood Base Excess -1.7 Low 0-4 46, 47 Venous Bicarbonate Hco3 22.8 mmol/L Low 24-28 46 Venous Blood Gas 09/05/2016 Venous Blood pH 7.32 Low 7.33-7.43 48 Venous Pco2 46 mmHg 41-51 48 Venous Po2 34 mmHg Low 35-45 48 Venous O2 Saturation 65.7 % Low 70-80 48 Venous Blood Base Excess -2.5 Low 0-4 48, 49 Venous Bicarbonate Hco3 22.2 mmol/L Low 24- 48 Cath Panel 09/02/2016 Partial Thrombo Time PTT [...] Egfr Non- 48.7 >60 Egfr 62.7 >60 50 Order 03/05/2016 EKG <pending> Iron & Iron Binding Capacity 08/24/2015 Iron 92 g/dL 50-212 Unsaturated Iron Binding 240 g/dL Total Iron Binding Capacity 332 g/dL 250-450 % Iron Saturation 28 % 15-55 Vitamin B12 And Folate Serum 08/24/2015 Vitamin B12 628 pg/mL 180-914 51 Folic Acid (Folate) > 20.00 ng/mL >3.99 CBC Auto Diff 08/10/2015 White Blood Count [...] Egfr Non- 50.5 >60 Egfr 64.9 >60 52 Lipid Profile (Trig/Chol/HDL) 08/10/2015 Triglycerides 80 mg/dL 53 Cholesterol 190 mg/dL 54 HDL Cholesterol 81.4 mg/dL 55 LDL Cholesterol 93 mg/dL 56 Laboratory test finding 08/10/2015 Magnesium 2.1 mg/dL [...] Egfr Non- 48.4 >60 Egfr 62.2 >60 57 CBC No Diff 03/20/2015 White Blood Count [...] Lipid Profile (Trig/Chol/HDL) 11/03/2014 Triglycerides 101 mg/dL 58 Cholesterol 155 mg/dL 59 HDL Cholesterol 64.2 mg/dL 60 LDL Cholesterol 71 mg/dL 61 Comp Metabolic Panel 11/03/2014 Sodium 138 mmol/L [...] Egfr Non- 62.3 >60 Egfr 80.1 >60 62 [facility] 11/03/2014 Creatine Kinase(CK) 55 U/L 10-223 63 CBC Auto Diff 11/03/2014 White Blood Count [...] 200 HDL Cholesterol 84 mg/dL High 40-60 64 Cholesterol/HDL Ratio 2.3 Average 1-4.44 LDL Cholesterol 92.4 Less Than 100 65 Comp Metabolic Panel 03/22/2013 Sodium 137 mmol/L [...] Egfr Non- 55.5 >60 Egfr 71.3 >60 66 Laboratory test 03/22/2013 Hepatitis C Antibody Nonreactive Nonreactive finding CBC Auto Diff 03/22/2013 White Blood Count [...] Blood Cells % 0.1 Laboratory test finding 01/26/2012 Ast (Sgot) 17 U/L 12-42 Alt (SGPT) 16 U/L 14-54 Lipid Profile (Trig/Chol/HDL) 01/26/2012 Triglyceride 95 mg/dL 40-200 Cholesterol 189 mg/dL Less Than 200 67 High Density Lipoprotein 70 mg/dL High 40-60 68 Cholesterol/HDL Ratio 2.70 AVERAGE 1-4.44 Low Density Lipoprotein 100 mg/dL Less Than 100 69 Manual Differential 10/27/2011 Polysegmented Neutrophil 79 % [...] 150-450 Mean Platelet Volume 8.9 um3 7.4-10.4 70 Lipid Profile (Trig/Chol/HDL) 10/27/2011 Triglyceride 155 mg/dL 40-200 Cholesterol 272 mg/dL High Less Than 200 71 High Density Lipoprotein 62 mg/dL High 40-60 72 Cholesterol/HDL Ratio 4.39 AVERAGE 1-4.44 Low Density Lipoprotein 179 mg/dL High Less Than 100 73 Comp Metabolic Panel 10/27/2011 Sodium 135 mmol/L 135-145 Potassium 4.7 mmol/L 3.5-5.0 Chloride 107 mmol/L 101-111 Co2 (Carbon Dioxide) 23.0 mmol/L 22-32 Anion Gap 5.0 mmol/L 2-11 74 Glucose 101 mg/dL High 70-100 BUN 12 mg/dL 6-24 Creatinine 1.1 mg/dL 0.50-1.40 One Over Creatinine 0.90 BUN/Creatinine Ratio 10.9 8-20 Calcium 9.0 mg/dL 8.1-9.9 Total Protein 6.0 GM/DL Low 6.2-8.1 Albumin 3.6 GM/DL 3.2-5.2 Globulin 2.4 GM/DL 2-4 Albumin/Globulin Ratio 1.5 1-3 Bilirubin Total 0.5 mg/dL 0.4-1.5 75 Alkaline Phosphatase 95 U/L 30-110 Alt (SGPT) 19 U/L 14-54 Ast (Sgot) 18 U/L 12-42 eGFR Non- 49.8 > 60 eGFR 64.1 > [address] Batres's Lab Panel 10/27/2011 TSH 0.97 MIU/ML 0.34-5.60 Urinalysis W/Microscopic 07/31/2011 Ua Color YELLOW Yellow Appearance-Urine TURBID Clear Specific [place]-Ur 1.018 1.010-1.030 Esterase-Urine 3+ Negative Nitrite NEGATIVE Negative Usabhduhtjjq-Li-DJC NEGATIVE Negative Protein-Urine TRACE Negative PH-Urine 6.0 5-9 Blood-Urine 1+ Negative Ketones-Urine NEGATIVE Negative Bilirubin-Ur NEGATIVE Negative Glucose-Urine NEGATIVE Negative RBC-Urine 0-3 0-2 Epith Cells-Ur MODERATE None WBC-Urine TNTC 0-5 Bacteria-Urine 3+ None Urine Culture & 07/31/2011 M <SEE 77 Sensitivi NOTE> CBC With Manual 01/24/2010 White Blood 11.1 CUMM High 4.8-10.8 78 Diff Count Red Cell Count 3.72 CUMM Low 4.2-5.4 78 Hemoglobin 12.1 g/dL 12.0-16.0 78 Hematocrit 36 % 35-47 78 Mean Corpuscular Volume 96 um3 79-97 78 Mean Corpuscular Hemoglob 33 pg High 27-31 78 Mean Corpuscular HGB Cone 34 g/dL 32-36 78 Redcell Distribution WDTH 13 % 10.5-15 78 Platelet Count 363 CUMM 150-450 78 Mean Platelet Volume 7.1 um3 Low 7.4-10.4 78 Polysegmented Neutrophil 67 % 38-83 78 Lymphocyte 22 % Low 25-47 78 Monocyte 4 % 0-13 78 Basophil 1 % 0-2 78 Atypical Lymph 6 % 0-6 78 Absolute Neutrophil Count 7.4 78 Anisocytosis SLIGHT 78 Toxic Granulation SLIGHT 78 Basic Metabolic Panel 01/24/2010 Sodium 136 mmol/L 135-145 78 Potassium 4.8 mmol/L 3.5-5.0 78 Chloride 105 mmol/L 101-111 78 Co2 (Carbon Dioxide) 24.0 mmol/L 22-32 78 Anion Gap 7.0 mmol/L 2-11 78, 79 Glucose 97 mg/dL 70-100 78, 80 BUN 12 mg/dL 6-24 78 Creatinine 1.10 mg/dL 0.50-1.40 78 One Over Creatinine 0.90 78 BUN/Creatinine Ratio 10.9 8-20 78 Calcium 9.1 mg/dL 8.1-9.9 78, 81 eGFR Non- 53.3 > 60 78 eGFR 64.5 > 60 78, 82 Urine Culture & 01/24/2010 Urine Culture ESCHERICHIA COLI 78, 83 Sensitivi Sensitivi Urinalysis 01/24/2010 Ua Color YELLOW Yellow 78 W/Microscopic Appearance-Urine CLEAR Clear 78 Specific [place]-Ur 1.010 1.010-1.030 78 Esterase-Urine 3+ Negative 78 Nitrite POSITIVE Negative 78 Ahnvstygusmv-Hg-CCD NEGATIVE Negative 78 Protein-Urine NEGATIVE Negative 78 PH-Urine 5.5 5-9 78 Blood-Urine NEGATIVE Negative 78 Ketones-Urine NEGATIVE Negative 78 Bilirubin-Ur NEGATIVE Negative 78 Glucose-Urine NEGATIVE Negative 78 WBC-Urine TNTC 0-5 78 RBC-Urine NONE SEEN 0-2 78 Epith Cells-Ur NONE None 78 Bacteria-Urine 3+ None 78 Ursc-1 01/24/2010 Ampicillin <=2 78 Amikacin <=2 78 Ciprofloxacin <=0.25 78 Ceftriaxone <=1 78 Cefazolin <=4 78 Nitrofurantoin <=16 78 Gentamicin <=1 78 Imipenem <=1 78 Levofloxacin <=0.12 78 Trimeth-Sulfa <=20 78 Ceftazidime <=1 78 Tigecycline <=0.5 78 Piperacillin/Tazobactam <=4 78 Urinalysis W/Microscopic 01/17/2010 Ua Color YELLOW Yellow Appearance-Urine CLEAR Clear Specific [place]-Ur 1.011 1.010-1.030 Esterase-Urine 2+ Negative Nitrite NEGATIVE Negative Qknstqsfeihb-Od-HEZ NEGATIVE Negative Protein-Urine NEGATIVE Negative PH-Urine 5.5 5-9 Blood-Urine NEGATIVE Negative Ketones-Urine NEGATIVE Negative Bilirubin-Ur NEGATIVE Negative Glucose-Urine NEGATIVE Negative WBC-Urine TNTC 0-5 RBC-Urine 0-2 0-2 Epith Cells-Ur RARE None Bacteria-Urine TRACE None Urine Culture & 01/17/2010 Urine Culture SN2 84 Sensitivi Sensitivi CBC With Manual Diff 12/26/2009 White Blood [...] mmol/L 22-32 Anion Gap 7.0 mmol/L 2-11 85 Glucose 98 mg/dL 70-100 86 BUN 13 mg/dL 6-24 Creatinine 1.50 mg/dL High 0.50-1.40 One Over Creatinine 0.60 BUN/Creatinine Ratio 8.7 8-20 Calcium 9.2 mg/dL 8.1-9.9 87 Total Protein 5.7 GM/DL Low 6.2-8.1 Albumin 3.8 GM/DL 3.2-5.2 Globulin 1.9 GM/DL Low 2-4 Albumin/Globulin Ratio 2.0 1-3 Bilirubin Total 1.0 mg/dL 0.4-1.5 88 Alkaline Phosphatase 84 U/L 30-110 Alt (SGPT) 15 U/L 14-54 Ast (Sgot) 17 U/L 12-42 eGFR Non- 37.3 > 60 eGFR 45.1 > 60 89 Drug Screen, Urine 09/28/2009 Amphetamines Urine NONE DETECTED None Detect Outpatient Screen Barbituates Urine Screen NONE DETECTED None Detect Cannabinoid Urine Screen NONE DETECTED None Detect Cocaine Metabolites Urine NONE DETECTED None Detect Urine Opiates NONE DETECTED 90 Urine Drug Screen M-20 08/28/2009 Urine Alcohol Negative mg/dL Cutoff: 30 Urine Ampetamines Negative ng/mL () 91 Urine Barbiturates Negative ng/mL () 92 Urine Benzodiazepines Negative ng/mL () 93 Urine Cocaine Negative ng/mL () 94 Urine Methadone Negative ng/mL () 95 Urine Opiates Reflex* ng/mL () 96 Urine Phencyclidine Negative ng/mL Cutoff: 25 Urine Propoxyphene Negative ng/mL () 97 Urine Tetrahydrocannabinol Negative ng/mL Cutoff: 20 98 Urine Opiates 08/28/2009 Urine Opiates Screen Positive () 99 Urine Codeine By GC/MS Negative ng/mL () 100 Urine Hydrocodone By GC/MS 596 ng/mL () 101 Urine Hydromophone By GC/MS 199 ng/mL () 102 Urine Morphine By GC/MS Negative ng/mL () 103 Urine Oxycodone By GC/MS 666 ng/mL () 104 Urine Opiates Interpretation Positive () 105 CBC With Manual Diff 04/18/2009 White Blood [...] mmol/L 22-32 Anion Gap 5.0 mmol/L 2-11 106 Glucose 100 mg/dL 70-100 107 BUN 14 mg/dL 6-24 Creatinine 1.00 mg/dL 0.50-1.40 One Over Creatinine 1.00 BUN/Creatinine Ratio 14.0 8-20 Calcium 9.2 mg/dL 8.1-9.9 108 Total Protein 6.4 GM/DL 6.2-8.1 Albumin 3.9 GM/DL 3.2-5.2 Globulin 2.5 GM/DL 2-4 Albumin/Globulin Ratio 1.6 1-3 Bilirubin Total 0.7 mg/dL 0.4-1.5 109 Alkaline Phosphatase 77 U/L 30-110 Alt (SGPT) 21 U/L 14-54 Ast (Sgot) 22 U/L 12-42 eGFR Non- 59.7 > 60 eGFR 72.3 > 60 110 1 Because ethnic data is not always readily [...] 15-29 5 Kidney failure <15 (or dialysis) 2 Result TnIDx:0.04 Called to [id number] at: 10:34:03 by:[id number] Read back by: [id number] 3 >100 to <200 pg/mL: likely compensated congestive heart failure (CHF) 200 to 400 pg/mL: likely moderate CHF >400 pg/mL: likely moderate to severe CHF 4 Desirable: <150 Borderline High: 150-199 High: 200-499 Very High: >500 5 Desirable: <200 Borderline High: 200-239 High: >239 6 Low: <40 Desirable: 40-60 High: >60 7 Desirable: <100 Near Optimal: 100-129 Borderline High: 130-159 High: 160-189 Very High: >189 8 Because ethnic data is not always readily [...] 15-29 5 Kidney failure <15 (or dialysis) 9 Result TnIDx:0.04 Called to POOL at: 12:21:39 by:[id number] Read back by: [id number] 10 >100 to <200 pg/mL: likely compensated congestive heart failure (CHF) 200 to 400 pg/mL: likely moderate CHF >400 pg/mL: likely moderate to severe CHF 11 [facility] Severe Sepsis and Septic Shock Management Bundle Measure requires all lactic acids initially measuring >2.0 mmol/L be repeated. 12 Result TnIDx:0.04 Called to [id number] at: ::44 by:[id number] Read back by: [id number] 13 Because ethnic data is not always [...] 5 Kidney failure <15 (or dialysis) 14 Interpretive information available on [facility] Test Catalog at [email or web address] 15 Please note: The following may produce a false positive D Dimer test: - Rheumatoid factor greater than 60 IU/ml - Plasma hemoglobin greater than 0.05 gm/dl - Bilirubin greater than 50 mg/dl - Lipids greater than 1000 mg/dl - FDP greater than 20 ug/ml 16 Result TnIDx:0.04 Called to [id number] at: ::44 by:[id number] Read back by: [id number] 17 Result TnIDx:0.04 Called to [id number] at: 11::44 by:[id number] Read back by: [id number] 18 SEE RESULT BELOW Name: MARICARMEN VILLARREAL : [address]: Olive Miguel MD Acct: [id number] Unit: [id number] AGE: 72 Location: [place] [address] Re11/07/17 SEX: F Status: ADM IN SPEC: [id number] CLAUDIA: 11/07/[address]: Isis Prasad NP REQ: [id number] RECD: 11/07/17 STATUS: LEONID LOW DR: Inder Batres III, MD _ SOURCE: URINE SPDESC: ORDERED: Urine Culture Procedure Result Reported Site Urine Culture Final 11/09/17- 0815 ML Organism 1 ESCHERICHIA COLI [place] Count >100,000 (Many) CFU/ML 1. ESCHERICHIA COLI [...] . END OF REPORT DEPARTMENT OF PATHOLOGY, [address] [place] [address] Philip Garner M.D. Director [facility] # [id number] [facility] Severe Sepsis and Septic Shock Management Bundle Measure requires all lactic acids initially measuring >2.0 mmol/L be repeated. 20 >100 to <200 pg/mL: likely compensated congestive heart failure (CHF) 200 to 400 pg/mL: likely moderate CHF >400 pg/mL: likely moderate to severe CHF 21 Because ethnic data is not always readily [...] 15-29 5 Kidney failure <15 (or dialysis) 22 Acute inflammation: >10.00 23 Result TnIDx:0.16 Called to [id number] at: 18:03:13 by:[id number] Read back by: [id number] 24 *Ascorbic acid is present which may interfere with detection of blood. 25 [facility] Severe Sepsis and Septic Shock Management Bundle Measure requires all lactic acids initially measuring >2.0 mmol/L be repeated. 26 Because ethnic data is not always [...] 5 Kidney failure <15 (or dialysis) 27 Acute inflammation: >10.00 28 Result TnIDx:0.09 Called to [id number] at: 13:45:02 by:[id number] Read back by: [id number] 29 Because ethnic data is not always readily [...] 15-29 5 Kidney failure <15 (or dialysis) 30 Desirable <150 Borderline high 150-199 High 200-499 Very High >500 31 Desirable <200 Borderline high 200-239 High >239 32 Low <40 Desirable: 40-60 High: >60 33 Desirable: <100 mg/dL Near Optimal: 100-129 mg/dL Borderline High: 130-159 mg/dL High: 160-189 mg/dL Very High: >189 mg/dL 34 >100 to <200 pg/mL: likely compensated congestive heart failure (CHF) 200 to 400 pg/mL: likely moderate CHF >400 pg/mL: likely moderate to severe CHF 35 Because ethnic data is not always [...] 5 Kidney failure <15 (or dialysis) 36 w/ next INR draw Non-fasting ok 37 >100 to <200 pg/mL: likely compensated congestive heart failure (CHF) 200 to 400 pg/mL: likely moderate CHF >400 pg/mL: likely moderate to severe CHF 38 >100 to <200 pg/mL: likely compensated congestive heart failure (CHF) 200 to 400 pg/mL: likely moderate CHF >400 pg/mL: likely moderate to severe CHF 39 Because ethnic data is not always readily [...] 15-29 5 Kidney failure <15 (or dialysis) 40 Because ethnic data is not always readily [...] 15-29 5 Kidney failure <15 (or dialysis) 41 Result TnIDx:0.90 Called to [id number] at: 17:02:22 by:[id number] Read back by: [id number] 99th percentile=0.04 ng/mL Troponin results at [facility] and [facility] are not interchangeable. 42 FEMORAL ARTERY 43 Reference ranges based on room air. 44 PA ROOM AIR 45 Reference ranges based on room air. 46 RV ROOMAIR 47 Reference ranges based on room air. 48 RA ROOM AIR 49 Reference ranges based on room air. 50 Because ethnic data is not always readily [...] 15-29 5 Kidney failure <15 (or dialysis) 51 Normal Range 180 to 914 Indeterminate Range 145 to 180 Deficient Range <145 52 Because ethnic data is not always readily [...] 15-29 5 Kidney failure <15 (or dialysis) 53 Desirable <150 Borderline high 150-199 High 200-499 Very High >500 54 Desirable <200 Borderline high 200-239 High >239 55 Low <40 Desirable: 40-60 High: >60 56 Desirable: <100 mg/dL Near Optimal: 100-129 mg/dL Borderline High: 130-159 mg/dL High: 160-189 mg/dL Very High: >189 mg/dL 57 Because ethnic data is not always readily [...] 15-29 5 Kidney failure <15 (or dialysis) 58 Desirable <150 Borderline high 150-199 High 200-499 Very High >500 59 Desirable <200 Borderline high 200-239 High >239 60 Low <40 Desirable: 40-60 High: >60 61 Desirable: <100 mg/dL Near Optimal: 100-129 mg/dL Borderline High: 130-159 mg/dL High: 160-189 mg/dL Very High: >189 mg/dL 62 Because ethnic data is not always readily [...] 15-29 5 Kidney failure <15 (or dialysis) 63 FASTING 64 HDL Interpretation: Undesirable: High Risk: Less than 40 mg/dL Desirable: Low Risk: Greater than 60 mg/dL 65 LDL Interpretation: Low Risk Optimal Level: LDL Less than 100 mg/dL Near or Above Optimal: LDL 100-129 mg/dL Borderline High Risk: LDL 130-159 mg/dL High Risk: LDL 160-189 mg/dL Very High Risk: LDL Greater than 189 mg/dL 66 Because ethnic data is not always readily [...] 15-29 5 Kidney failure <15 (or dialysis) 67 CHOLESTEROL INTERPRETATION: Desirable: Less than 200 MG/DL Borderline-High Risk: 200-239 MG/DL High-Risk: 240 MG/DL and over 68 HDL INTERPRETATION: Undesirable: High Risk: Less than 40 MG/DL Desirable: Low Risk: Greater than 60 MG/DL 69 LDL INTERPRETATION: Low Risk Optimal Level: LDL Less than 100 MG/DL Near or Above Optimal: LDL 100-129 MG/DL Borderline High Risk: LDL 130-159 MG/DL High Risk: LDL 160-189 MG/DL Very High Risk: LDL Greater than 189 MG/DL 70 Imm. NE 1 71 CHOLESTEROL INTERPRETATION: Desirable: Less than 200 MG/DL Borderline-High Risk: 200-239 MG/DL High-Risk: 240 MG/DL and over 72 HDL INTERPRETATION: Undesirable: High Risk: Less than 40 MG/DL Desirable: Low Risk: Greater than 60 MG/DL 73 LDL INTERPRETATION: Low Risk Optimal Level: LDL Less than 100 MG/DL Near or Above Optimal: LDL 100-129 MG/DL Borderline High Risk: LDL 130-159 MG/DL High Risk: LDL 160-189 MG/DL Very High Risk: LDL Greater than 189 MG/DL 74 Anion gap measurement may be of limited value in the presence of any alkalosis, especially in a combined acid base disorder. . 75 A metabolite of Naproxen, O-desmethylnaproxen, has been shown to interfere with the Jendrassik-Elicia method for measuring total bilirubin. Samples from patients who have taken Naproxen have shown spurious elevation in total bilirubin levels. 76 Because ethnic data is not always readily [...] 15-29 5 Kidney failure <15 (or dialysis) 77 RUN DATE: 08/02/11 [facility] NMI LIVE PAGE 1 RUN TIME: 932 Specimen Inquiry RUN USER: INTERFACE Name: MARICARMEN VILLARREAL#: [id number] Status: REG REF Re07/31/11 Age/Sex: 65/F Unit#: [id number] Location: [facility] : 46 SPEC #: [id number] CLAUDIA: 07/31/11 STATUS: COMP REQ #: [id number] RECD: 07/31/[address] [facility] [address]: URINE ENTR: 07/31/[address]: NORM: ORDERED: URINE C S QUERIES: MEDENT REQUISITION # [id number] Procedure Result Verified Site > URINE CULTURE [...] *These antibiotics are not available in the [facility] Formulary. Contact the Microbiology Department for any additional antibiotic reporting. - [facility] Permit #[id number] [facility] Dates [facility] [address] DEPARTMENT OF PATHOLOGY, [facility] DATES [place], [place] [address] [facility] Permit #[id number] Philip Garner M.D. Director Lora Gipson M.D. Insulation Extruder Operator 78 FAX RESULTS TO AT FAX NUMBER [phone] 79 Anion gap measurement may be of limited value in the presence of any alkalosis, especially in a combined acid base disorder. . 80 Note change in reference range as of 02/10/08. The change was based on recommendations from the [place] [employer]. 81 Please note change in reference range effective 07 . 82 Because ethnic data is not always readily [...] 15-29 5 Kidney failure <15 (or dialysis) 83 >100^>100,000 ORGANISMS/ML (MANY)^CCU 84 SCANT NORMAL URETHRAL OR PERINEAL MIRIAM 85 Anion gap measurement may be of limited value in the presence of any alkalosis, especially in a combined acid base disorder. . 86 Note change in reference range as of 02/10/08. The change was based on recommendations from the [place] [employer]. 87 Please note change in reference range effective 07 . 88 A metabolite of Naproxen, O-desmethylnaproxen, has been shown to interfere with the Jendrassik-Elicia method for measuring total bilirubin. Samples from patients who have taken Naproxen have shown spurious elevation in total bilirubin levels. 89 Because ethnic data is not always readily [...] 15-29 5 Kidney failure <15 (or dialysis) 90 THE URINE SPECIMEN WAS TESTED AT THE LISTED CUTOFFS: DRUG CLASS TEST LEVEL (NG/ML) AMPHETAMINES 300 BARBITUATES 200 COCAINE METABOLITES 300 CANNABINOIDS 25 OPIATES 200 THIS IS A SCREENING PROCEDURE. POSITIVE RESULTS ARE NOT CONFIRMED. SPECIMEN WAS RECEIVED WITHOUT CHAIN OF CUSTODY. RESULTS SHOULD BE USED FOR MEDICAL PURPOSES ONLY. . 91 -- REFERENCE VALUE -- Cutoff: 500 92 -- REFERENCE VALUE -- Cutoff: 200 93 -- REFERENCE VALUE -- Cutoff: 200 94 -- REFERENCE VALUE -- Cutoff: 300 95 -- REFERENCE VALUE -- Cutoff: 300 96 *Drug confirmation ordered by reflex. Refer to confirmation result to follow for the definitive result. -- REFERENCE VALUE -- Cutoff: 300 97 -- REFERENCE VALUE -- Cutoff: 300 98 This report is intended for use in clinical monitoring or management of patients. It is not intended for use in employment-related testing. Test Performed by: [facility] D[facility] of Lab Med and Pathology [address] [place] [address] Fire And Explosion Investigator: Bakari Quan III, M.D. 99 -- REFERENCE VALUE -- Cutoff: 300 100 -- REFERENCE VALUE -- Cutoff: 100 101 -- REFERENCE VALUE -- Cutoff: 100 102 -- REFERENCE VALUE -- Cutoff: 100 103 -- REFERENCE VALUE -- Cutoff: 100 104 -- REFERENCE VALUE -- Cutoff: 100 105 This report is intended for use in clinical monitoring and management of patients. It is not intended for use in employment-related drug testing. Test Performed by: [facility] Pathology [address] [place] [address] [employer] And Explosion Investigator: Bakari Quan III, M.D. 106 Anion gap measurement may be of limited value in the presence of any alkalosis, especially in a combined acid base disorder. . 107 Note change in reference range as of 02/10/08. The change was based on recommendations from the [place] [employer]. 108 Please note change in reference range effective 07 . 109 A metabolite of Naproxen, O-desmethylnaproxen, has been shown to interfere with the J[place]unter[place] method for measuring total bilirubin. Samples from patients who have taken Naproxen have shown spurious elevation in total bilirubin levels. 110 Because ethnic data is not always readily [...] dialysis) Procedures Date CPT Code Description Status 03/26/2018 12606 EKG Tracing & Interpretation Completed 03/18/2018 08196 Moderate Sedation Services; Same Phys Each Additional Completed 15 Mins 03/18/2018 60461 Moderate Sedation Services; Same Phys Intl 15 Mins; PT Completed >=5 Years 03/18/2018 44039 Perm Pacemaker Av Sequential Atrial And Ventricular Completed 03/05/2018 96255 Color Flow Doppler/Interp & Reprt Completed 03/05/2018 35362 Pulse Wave/Continuous-Interp.RPT Completed 03/05/2018 77121 Echocardiography, Transesophageal, Real Time W/Image 2D Completed W/W/O M-M 03/05/2018 15910 Cardioversion Completed 02/26/2018 94917 ECHO Transthoracic, Real-Time 2D With Doppler And Color Completed Flow 02/26/2018 74662 ECHO Transthoracic, Real-Time 2D With Doppler And Color Completed Flow 02/12/2018 96943 EKG Tracing & Interpretation Completed 02/10/2018 95705 EKG Tracing & Interpretation Completed 01/03/2018 23240 Holter Monitor Review (24 hr)dr review & interp only Completed 12/28/2017 60944 ECG Monitor/Recording W/Visual Superimposition Scanning Completed 12/15/2017 38859 EKG Tracing & Interpretation Completed 09/24/2017 30825 EEG Recording Awake & Asleep Completed 09/24/2017 20842 ECHO Transthorasic Realtime 2D W Doppler & Color Flow Completed Hosp 09/24/2017 29146 EKG, Interpretation Only Completed 03/31/2017 02065 ECHO Transthoracic, Real-Time 2D With Doppler And Color Completed Flow 03/31/2017 14747 ECHO Transthoracic, Real-Time 2D With Doppler And Color Completed Flow 02/10/2017 68815 EKG Tracing & Interpretation Completed 2016 75457 ECHO Transthoracic, Real-Time 2D With Doppler And Color Completed Flow 10/14/2016 94458 EKG Tracing & Interpretation Completed 09/22/2016 48252 ECHO Transthorasic Realtime 2D W Doppler & Color Flow Completed Hosp 09/05/2016 69769 RT & lt Cath W/Injx HRT Art&L Ventr Img S&I Completed 08/08/2016 12015 Echocardiography, Transesophageal, Real Time W/Image 2D Completed W/W/O M-M 08/08/2016 71491 Pulse Wave/Continuous-Interp.RPT Completed 08/08/2016 36653 Color Flow Doppler/Interp & Reprt Completed 08/06/2016 28524 ECHO Stress Test Incl Perf Contiuous ekg Monitoring Completed W/Phys Superv 07/28/2016 16859 Diffusing Capacity Completed 07/28/2016 76881 Spirometry Incl Graphic Record, Timed Expiratory Flow Completed Rate 07/22/2016 37338 EKG Tracing & Interpretation Completed 07/22/2016 41679 EKG Tracing & Interpretation Completed 04/30/2016 89103 Chemotherpy Admin Subcutaneous/Im Non-Hormonal Completed Anti-Neoplastic 03/24/2016 19483 Inject/Drain Joint/Bursa Major W/O US Completed 03/11/2016 57333 ECHO Transthoracic, Real-Time 2D With Doppler And Color Completed Flow 03/05/2016 09742 EKG Tracing & Interpretation Completed 10/12/2015 Bone Mineral Density Test Completed 09/25/2015 04795 Chemotherpy Admin Subcutaneous/Im Non-Hormonal Completed Anti-Neoplastic 07/30/2015 21071 EKG Tracing & Interpretation Completed 03/21/2015 79747 Chemotherpy Admin Subcutaneous/Im Non-Hormonal Completed Anti-Neoplastic 03/20/2015 38693 EKG, Interpretation Only Completed 10/30/2014 Mammogram Completed 09/19/2014 19958 Admin Of Inj Completed 01/09/2014 54373 EKG Tracing & Interpretation Completed 09/05/2013 47445 Xray Knee 3 Views Completed 09/05/2013 53401 Rad Exam; Knee, Ap&L Completed 09/05/2013 Inject/Drain Joint/Bursa Major W/O US Completed 08/12/2013 Mammogram Completed 08/12/2013 Bone Mineral Density Test Completed 05/23/2013 62375 EKG Tracing & Interpretation Completed 05/21/2012 32171 EKG Tracing & Interpretation Completed 12/09/2011 37863 Mobile Cardiovascular Telemetry Over 24 HR Up To 30 Completed Days 11/27/2011 83088 Holter Monitor Review (24 hr)dr review & interp only Completed 11/19/2011 86683 EKG Tracing & Interpretation Completed 07/03/2011 Mammogram Completed 07/03/2011 Bone Mineral Density Test Completed 06/05/2011 78261 EKG Tracing & Interpretation Completed 02/14/201126455 Inject/Drain Joint/Bursa Major W/O US Completed 02/14/2011 67548 Xray Knee 3 Views Completed 02/14/2011 34642 Xray Knee 3 Views Completed 05/21/2010 02241 Nasal Endoscopy, Diagnostic Completed 05/14/2010 Mammogram Completed 05/01/2010 Mammogram Completed 04/09/2010 99041 Mobile Cardiovascular Telemetry Over 24 HR Up To 30 Completed Days 03/04/2010 07319 EKG Tracing & Interpretation Completed 02/14/2010 08029 Mobile Cardiovascular Telemetry Over 24 HR Up To 30 Completed Days 02/13/2010 85580 EKG Tracing & Interpretation Completed 02/12/2010 31299 ECHO Transthoracic, Real-Time 2D With Doppler And Color Completed Flow 01/07/2010 90987 Treadmill Interp/Report Only Completed 01/07/2010 47733 Stress Test Supervsn W/Out I/R Completed 11/19/2006 Bone Mineral Density Test Completed Encounters Type Date Location Provider CPT E/M Dx Office Visit 03/26/2018 [facility] Cayla Peoples, N.P. 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 I50.32 R60.9 R06.00 I44.0 Office Visit 02/10/2018 11:00a [facility] Caleb Portillo, 90572 I48.92 M.D. 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 J18.9 Office Visit 01/06/2018 1:00p [facility], Mary Manzanares, 03959 R07.9 Hospitalists LYE PEEL OPERATOR I48.91 Office Visit 12/15/2017 11:00a [facility] Of Sophy Peoples, 14020 I48.91 [facility] N.PLadarius E78.5 I10 Z95.2 Office Visit 11/11/2017 11:54a [facility], 24584 I48.91 Hospitalists M.DLadarius N17.9 R74.8 M79.7 Office Visit 11/10/2017 11:53a [facility], 37071 I48.91 Hospitalists M.DLadarius N17.9 R74.8 M79.7 Office Visit 11/09/2017 11[facility]52[facility] 51091 I48.91 Assoc, Hospitalists M.DLadarius N17.9 R74.8 M79.7 Office Visit 11/08/2017 [facility] 97231 I48.91 Assoc, Hospitalists M.DLadarius N17.9 R74.8 M79.7 Office Visit 11/07/2017 [facility] Isismargo Manzo, 71368 I48.91 11:50a Assoc, LYE PEEL OPERATOR Hospitalists N17.9 R74.8 M79.7 Office Visit 11/02/2017 2:40p [facility] Boo Batres, 18124 R29.6 - Dee Ann I48.92 I63.10 R27.0 Office Visit 09/29/2017 8:36a [facility], Elian Chaney, 47500 I63.10 Hospitalists Marissa I48.92 E86.0 Office Visit 09/28/2017 8:34a [facility] Assoc,pc Elian Ibanjuan, 43811 I63.10 Hospitalists Marissa I48.92 E86.0 Office Visit 09/27/2017 4:21p [facility] Of Joshgissell Muñiz, 70427 I48.92 [facility] Marissa, [facility] I63.9 Z95.1 Office Visit 09/27/2017 8:33a [facility] Olive Carmenhn, 37420 I63.10 Assoc,pc Hospitalists Marissa I48.92 E86.0 Office Visit 09/26/2017 8:33a [facility] Olive Lamont, 70218 I63.10 Assoc, Hospitalists Marissa I48.92 E86.0 W19.xxxA Office Visit 09/25/2017 8:32a [facility] Olive Hohn, 95367 I63.10 Assoc, Hospitalists Marissa I48.92 E86.0 W19.xxxA Office Visit 09/25/2017 7:00a [facility] Billy Cain, 02628 R29.6 M.Bib I63.40 Office Visit 09/24/2017 7:00a [facility] Jad Pruett, 94474 R29.6 M.DLadarius I63.40 Office Visit 09/24/2017 8:30a [facility] Olive Hohn, 99965 I63.10 Assoc, Hospitalists Marissa I48.92 E86.0 W19.xxxA Office Visit 09/23/2017 8:24a [facility] Assoc, Olive Miguel, 12291 R27.0 Hospitalists Marissa E86.0 R00.0 W19.xxxA Office Visit 08/24/2017 1:20p [facility] Boo Batres, 17242 R07.89 - Dee Ann D64.9 Office Visit 05/20/2017 9:30a [facility] ELIJAH Mora 20254 Z95.2 I10 E78.5 D64.9 Office Visit 03/23/2017 2:30p [facility] ELIJAH Mora 03242 Z95.2 R53.1 I10 E78.5 D64.9 Office Visit 02/10/2017 3:40p [facility] Caleb Portillo M.D. 68354 Z95.2 I34.0 R06.02 I25.10 I10 E78.5 Office Visit 11/07/2016 9:00a [facility] ELIJAH Mora 05077 Z95.2 R06.02 I25.10 I10 Office Visit 10/21/2016 3:00p [facility] ELIJAH Mora 61541 Z95.2 R06.02 Z79.01 D64.9 Z95.1 Office Visit 10/14/2016 2:40p [facility] Caleb Portillo M.D. 84821 Z95.2 I25.10 D64.9 R06.02 I34.0 I10 Office Visit 10/07/2016 2:00p [facility] Boo Batres, 11192 Z95.2 - Dee Ann I25.10 D64.9 Z79.01 Office Visit 09/11/2016 2:20p [facility] Warren Cunha, 60249 I34.0 M.D. I10 R06.02 I25.10 Office Visit 09/02/2016 11:00a [facility] Marytaybjohn Cunha, 70368 I34.0 M.D. I10 R06.02 R07.89 G89.4 Office Visit 07/22/2016 8:40a [facility] Caleb Portillo M.D. 83293 I10 I34.0 I10 R06.00 F17.210 I34.0 I95.1 R06.00 Office Visit 07/16/2016 11:15a [facility] Raul Holder M.D. 37274 M25.561 C.M.A. M17.11 M25.571 M65.871 Office Visit 06/30/2016 9:00a [facility] Jad Holden M.D. 26030 M54.5 Of [facility] M47.22 Office Visit 06/26/2016 9:00a [facility] Nurse Visit 62379 I10 Office Visit 06/05/2016 9:00a [facility] ELIJAH Mora 00273 I10 I34.0 M54.2 F41.9 Office Visit 05/08/2016 10:00a [facility] ELIJAH Mora 17424 I34.0 I10 Office Visit 04/30/2016 9:00a [facility] Boo Batres, 76923 M54.2 - Dee Ann Z23 Z92.29 M81.0 Office Visit 04/10/2016 3:30p [facility] ELIJAH Mora 23013 I34.0 I10 Office Visit 03/24/2016 8:15a [facility] Holder M.D. 77804 M75.51 C.M.ALadarius Office Visit 03/05/2016 11:00a [facility] Caleb Portillo 28575 E78.0 Marissa G89.4 F17.200 I10 I34.0 Office Visit 02/18/2016 4:00p [facility] Boo Batres, 61366 R21 - Dee Ann Office Visit 08/24/2015 2:00p [facility] ELIJAH Mora 10490AIC I10 I95.1 E78.0 Office Visit 07/30/2015 1:20p [facility] Caleb Portillo M.D. 01585 R03.0 I95.1 Office Visit 06/25/2015 2:40p [facility] - Boo Batres, 26415 R12 Wilman Ann Z23 Office Visit 03/19/2015 9:45a [facility] Jad Holden, 13624 M50.12 Of [facility] Marissa Office Visit 01/26/2015 11:40a [facility] - Boo Batres, 11134 796.2 Wilman Ann V76.51 Office Visit 02/27/2014 11:20a [facility] Boo Batres, 56374 807.04 - [place] M.DLadarius 733.00 Office Visit 01/09/2014 1:40p [facility] Caleb Portillo, 20752 300.02 M.D. 272.0 796.2 458.0 Office Visit 09/05/2013 10:00a [facility] M.D. 21343 716.96 C.M.A. Office Visit 08/24/2013 1:40p [facility] Boo Batres, 48044 733.00 - [place] M.D. Office Visit 05/23/2013 1:40p [facility] Caleb Portillo, 95038 300.02 M.D. 272.0 780.4 Office Visit 03/11/2013 10:00a [facility] Boo Batres, 03185 272.0 - [place] M.DLadarius 733.00 300.02 V73.89 V04.81 V03.82 Office Visit 05/21/2012 2:20p [facility] Caleb Portillo M.D. 70454 780.4 272.0 300.02 Office Visit 01/28/2012 1:20p [facility] Boo Batres, 75273 272.0 - [place] M.D. Office Visit 12/11/2011 11:30a [facility] AT [facility], 71963 780.4 [facility] Office Visit 11/19/2011 11:00a [facility] AT Caleb Portillo, 99161 272.0 [facility] M.DLadarius 780.4 386.9 786.59 Office Visit 11/13/2011 10:40a [facility] Boo Batres, 42270 272.0 - [place] M.D. Office Visit 10/23/2011 10:40a [facility] Boo Batres, 07208 780.4 - [place] M.D. 300.02 Office Visit 07/31/2011 3:00p [facility] Boo Batres, 59640 791.9 - [place] M.D. 791.9 Office Visit 06/05/2011 2:20p [facility] Caleb Portillo, 97016 300.02 M.D. 785.1 786.50 Office Visit 03/27/2011 3:40p DO Not Use [facility] [facility] AT [facility], 41573 733.00 [facility].D. V76.10 715.90 V04.81 300.02 785.1 Office Visit 02/14/2011 1:45p [facility] Holder M.D. 31578 716.96 C.M.ALadarius Office Visit 06/04/2010 3:00p [facility] C.M.ALadarius [place], 38191 350.2 [facility] 05/21/2010 1:30p [facility] C.M.ALadarius Salazar, 52771 350.2 [facility].0 Office Visit 05/13/2010 1:40p DO Not Use [employer] [facility] AT [facility], 67475 611.71 [facility].DLadarius 461.1 472.0 727.1 Office Visit 04/25/2010 1:00p DO Not Use Lithopress Operator AT [facility], 82066 702.19 [facility].D. V76.10 Office Visit 03/19/2010 10:20a DO Not Use Lithopress Operator AT [facility], 12070 465.9 [facility].D. Office Visit 03/15/2010 10:40a DO Not Use Lithopress Operator AT [facility], 41926 338.4 [facility].DLadarius 785.1 Office Visit 03/04/2010 10:30a [facility] Nurse Visit 08934 338.4 785.1 424.0 424.1 Office Visit 02/13/2010 11:00a [facility] Caleb Portillo, 42471 786.50 M.D. 785.1 Office Visit 02/06/2010 3:00p DO Not Use [employer] AT [facility], 00194 724.2 [facility].DLadarius 785.1 Office Visit 01/17/2010 2:00p DO Not Use [employer] Operator AT [facility], 76133 785.1 [place] M.D. 593.9 Office Visit 01/07/2010 [facility], 80783 786.50 M.D. 785.1 786.09 Office Visit 12/26/2009 9:40a DO Not Use [employer] [facility] AT [facility], 72748 785.1 [place] M.D. Office Visit 11/26/2009 10:00a DO Not Use [employer] Operator AT [facility], 51091 786.09 [place] M.D. Office Visit 09/28/2009 10:45a [facility] 82913 477.8 [place] Office Visit 08/28/2009 10:45a [facility] 94158 338.4 [place] 338.4 Office Visit 08/07/2009 10:45a [facility] 12356 461.9 [place] 338.4 300.02 461.9 Office Visit 07/20/2009 11:20a [facility] Not Use [facility], 50166 338.4 [place] M.D. 729.1 473.9 780.52 Office Visit 06/19/2009 8:40a DO Not Use [employer] Operator AT [place], Radha, 74996 845.00 [place] M.D. Office Visit 05/28/2009 9:40a DO Not Use [facility] [place], 74785 338.4 [place] M.D. 461.9 Office Visit 04/25/2009 8:40a DO Not Use Lith[employer] Operator AT [facility], Radha, 15845 338.4 [place] M.D. 338.4 Office Visit 04/12/2009 10:20a DO Not Use Lithop[employer] Operator AT [place], Radha, 44527 729.1 [place] M.D. 338.4 300.02 780.79 338.4 846.1 Office Visit 03/21/2009 9:20a DO Not Use [employer] Operator AT [place], Radha, 40055 338.4 [place] M.D. 729.1 719.46 846.1 729.1 338.4 300.02 Office Visit 02/07/2009 10:00a DO Not Use Lithopress Operator AT [facility], 89130 338.4 [facility] Ami.Bib 338.4 733.00 724.9 729.1 300.02 719.46 Office Visit 12/07/2008 3:00p DO Not Use Lithopress Operator AT [facility], 16028 338.4 [facility] Ami.Bib 729.1 733.00 296.30 300.02 796.2 338.4 733.00 729.1 296.30 300.02 Plan of Care Future Appointment(s):04/23/2018 10:00 am - Ica Pacer Schedule at [facility]04/02/2018 9:00 am - Jad Holden M.D. at [facility]04/13/2018 8:20 am - Caleb Portillo M.D. at [facility]03/26/2018 - Sophy Peoples N.P.I48.0 Paroxysmal atrial fibrillationNew Labs:Basic Metabolic PanelMagnesiumDigoxinComments:Your rate is controlled.Referral:Carlos Eduardo Jeff MD, Cardiac ElectrophyslgyRecommendations: HR controlled continue current meds.I49.5 Sick sinus gfoxsnkfW07.32 Chronic diastolic (congestive) heart azwznonY88.0 Presence of cardiac pacemakerFollow up :PO 3-4 weeks OV Sophy or FLORecommendations:Wear brace until pacer check in 3-4 weeks
[2018-04-13 21:55] LABS: ABS Basophils 0.1 10^3/ul (0-0.2); ABS Eosinophils 0.5 10^3/ul (0-0.6); ABS Lymphocytes 2.1 10^3/ul (1.0-4.8); ABS Monocytes 0.9 10^3/ul (0-0.8); ABS Neutrophils 8.8 10^3/ul (1.5-7.7); ABS Nucleated RBC 0 10^3/ul; Eosinophil % 3.7 % (0-6); Hematocrit 31 % (35-47); Hemoglobin 9.3 g/dl (12.0-16.0); Lymphocyte % 17.3 % (25-47); Mean Corpuscular HGB Conc 31 g/dl (31-36); Mean Corpuscular Hemoglobin 25 pg (27-31); Mean Corpuscular Volume 82 fL (80-97); Mean Platelet Volume 8.8 um3 (7.4-10.4); Nucleated Red Blood Cells % 0.1; Platelet Count 126 10^3/ul (150-450); Red Blood Count 3.72 10^6/ul (4.00-5.40); Red Cell Distribution Width 22 % (10.5-15); White Blood Count 12.3 10^3/ul (3.5-10.8)
--- NOTE | 2018-04-13 21:55 | ED ---
Head Injury - HPI Summary HPI Summary: The pt is a 72 [facility] s/p a sudden onset fall tonight. She rolled out of bed hitting her head on the floor but did not lose consciousness. She notes increased falls since her recent pacemaker placement. - History Of Current Complaint Chief Complaint: EDNeckComplaint Stated Complaint: FALL Time Seen by Provider: 04/13/18 21:45 Hx Obtained From: Patient Mechanism Of Injury: Other - Fall from a bed Onset of Pain: Prior to Arrival Severity Currently: Mild Pain Intensity: 3 Pain Scale Used: 0-10 Numeric Associated Signs And Symptoms: Negative - LOC, Neck Pain, Headache - Allergies/Home Medications Allergies/Adverse Reactions: Allergies Allergy/AdvReac Type Severity Reaction Status Date / Time No Known Allergies Allergy Verified 09/23/17 12:09 PMH/Surg Hx/FS Hx/Imm Hx Previously Healthy: No Endocrine/Hematology History: Reports: Hx Anticoagulant Therapy, Hx Anemia Denies: Hx Diabetes Cardiovascular History: Reports: Hx Atrial Fibrillation, Hx Hypercholesterolemia , Hx Hypertension, Hx Pacemaker/ICD - PACEMAKER 03/18/18, Hx Syncope, Other Cardiovascular Problems/Disorders - BORN WITH HEART MURMUR, ON MEDS Respiratory History: Reports: Hx Seasonal Allergies Denies: Hx Asthma, Hx Chronic Obstructive Pulmonary Disease (COPD), Other Respiratory Problems/Disorders GI History: Reports: Other GI Disorders - states recent diarrhea History: Denies: Hx Renal Disease Musculoskeletal History: Reports: Hx Back Problems - T 12 fx. Osteoporosis., Hx Fibromyalgia, Hx Osteoporosis - L HIP;SPINE Sensory History: Reports: Hx Contacts or Glasses, Other Sensory Impairments - fibromyalgia Denies: Hx Cataracts, Hx Eye Injury, Hx Eye Prosthesis, Hx Glaucoma, Hx Legally Blind, Hx Macular Degeneration, Hx Vision Problem, Hx Deafness, Hx Hearing Aid, Hx Hearing Problem Opthamlomology History: Reports: Hx Contacts or Glasses, Other Sensory Impairments - fibromyalgia Denies: Hx Cataracts, Hx Eye Injury, Hx Eye Prosthesis, Hx Glaucoma, Hx Legally Blind, Hx Macular Degeneration, Hx Vision Problem Neurological History: Reports: Hx Headaches, Other Neuro Impairments/Disorders - Patient states that she has had a stroke in past Psychiatric History: Reports: Hx Anxiety - NO MEDICATION FOR AT THIS TIME- STATES HAS BEEN NERVOUS LATELY, Hx Depression - NO MEDICATION FOR AT THIS TIME, Other Psychiatric Issues/Disorders - patient states that she hallucinates Denies: Hx Panic Disorder - Cancer History Hx Chemotherapy: No Hx Radiation Therapy: No - Surgical History Surgery Procedure, Year, and Place: right wrist-plate; gastric stapling; tubal ligation,. hysterectomy-[facility]; appendectomy;carpal tunnel right and left,LAP RISA. RIGHT THUMB TENDON REPAIR, Hx Anesthesia Reactions: No - Immunization History Date of Tetanus Vaccine: Yes Date of Influenza Vaccine: Fall 2012 Infectious Disease History: No Infectious Disease History: Denies: Traveled Outside the [place] in Last 30 Days - Family History Known Family History: Positive: Hypertension - Social History Occupation: Retired Lives: With Family Alcohol Use: None Hx Substance Use: Yes Substance Use Type: Reports: None Substance Use Comment - Amount & Last Used: hydrocodone Hx Tobacco Use: Yes Smoking Status (MU): Former Smoker Type: Cigarettes Amount Used/How Often: 10 cigarettes/day Have You Smoked in the Last Year: Yes Review of Systems Constitutional: Negative - LOC Musculoskeletal: Other - Positive: Neck pain Positive: Headache All Other Systems Reviewed And Are Negative: Yes Physical Exam - Summary Physical Exam Summary: Appearance: Well-appearing, Well-nourished, lying in bed comfortably Skin: Warm, dry, no obvious rash Eyes: sclera anicteric,conjunctival pallor noted ENT: mucous membranes moist, pharynx appears normal Neck: Supple, tenderness of the para cervical processes and the midline noted Respiratory: Clear to auscultation, no signs of respiratory distress Cardiovascular: Normal S1, S2. No murmurs. Normal distal pulses in tibial and radial bilaterally. Abdomen: Soft, nontender, normal active bowel sounds present Musculoskeletal: Normal, Strength/ROM Intact Neurological: A&Ox3, awake and alert, mentation is normal, speech is fluent and appropriate Psychiatric: affect is normal, does not appear anxious or depressed GCS: 15 Triage Information Reviewed: Yes Vital Signs On Initial Exam: Initial Vitals Pulse Pulse Ox 60 95 04/13/18 21:15 04/13/18 21:15 Vital Signs Reviewed: Yes Diagnostics - Vital Signs Vital Signs Temp Pulse Resp BP Pulse Ox 04/13/18 21:21 98.3 F 62 18 155/53 98 04/13/18 21:17 62 155/53 98 04/13/18 21:15 60 95 - Laboratory Result Diagrams: 04/13/18 21:47 04/13/18 21:47 Lab Statement: Any lab studies that have been ordered have been reviewed, and results considered in the medical decision making process. - CT Brain CT CT Interpretation Completed By: Radiologist - IMPRESSION: 1. No acute intracranial findings. 2. Remote right parietal lobe infarct . Chronic and age- related change as above. The ED physician reviewed this radiology report. Cervical Spine CT CT Interpretation Completed By: Radiologist - IMPRESSION: 1. No acute fracture or subluxation. 2. Multilevel degenerative change detailed above. The ED physician reviewed this radiology report. - EKG 22:25 Cardiac Rate: NL - 61 bpm EKG Rhythm: Atrial Flutter Summary of EKG Findings: Atrial flutter with predominant 4:1 AV block Head Injury Course/Dx Course Of Treatment: A 72 year-old F presents to the ED with a CC of head and neck pain s/p a sudden onset fall tonight. She rolled out of bed hitting her head on the floor but did not lose consciousness. She notes increased falls since her recent pacemaker placement. A physical exam revealed conjunctival pallor, tenderness of the para cervical processes and midline tenderness. An EKG reveals Atrial flutter with predominant 4:[address] brain CT and cervical spine CT are both unremarkable. Patient will be discharged with a final Dx of head injury. Pt is agreeable with this plan. Allergies noted. - Diagnoses Provider Diagnoses: Head injury Discharge - Sign-Out/Discharge Documenting (check all that apply): Patient Departure - DC - Discharge Plan Condition: Good Disposition: HOME Patient Education Materials: Head Injury (ED) Referrals: Boo Batres MD [Primary Care Provider] - 3 Days (if not better) Additional Instructions: Return to ED for any new or worsening symptoms - Billing Disposition and Condition Condition: GOOD Disposition: Home - Attestation Statements Document Initiated by Scribe: Yes Documenting Scribe: Guadalupe Vigil Provider For Whom Larry is Documenting (Include Credential): Dr. Inder Shelby MD Scribe Attestation: Guadalupe Wilkins scribed for Dr. Inder Shelby MD on 04/15/18 at 1433. Scribe Documentation Reviewed: Yes Provider Attestation: The documentation as recorded by the scribe, Guadalupe Chepkemoi accurately reflects the service I personally performed and the decisions made by me, Dr. Inder Shelby MD
[2018-04-13 22:12] LABS: EGFR Non-African American 46.1 (>60)
--- NOTE | 2018-04-13 23:32 | RAD ---
EXAM: CT Head Without Intravenous Contrast EXAM DATE/TIME: 04/13/2018 10:17 PM CLINICAL HISTORY: 72 years old, female; Injury or trauma; Fall; Additional info: Fall, pain TECHNIQUE: Axial computed tomography images of the head/brain without intravenous contrast. All CT scans at this facility use at least one of these dose optimization techniques: automated exposure control; mA and/or kV adjustment per patient size (includes targeted exams where dose is matched to clinical indication); or iterative reconstruction. COMPARISON: BRAIN WO CT BRAIN WO 03/15/2018 6:42 AM FINDINGS: Brain: There is no acute intracranial hemorrhage, extraaxial collection or mass effect. Stable lucency and encephalomalacia in posterior right parietal lobe consistent with old infarct. Otherwise, perez-white differentiation is maintained. Periventricular white matter lucency likely represents small vessel ischemic change. There is diffuse cortical volume loss consistent with patient's age. Ventricles: The cerebral ventricles remain diffusely enlarged secondary to cortical volume loss. Normal configuration. Bones/joints: No acute fracture. Sinuses: Normal as visualized. No acute sinusitis. Mastoid air cells: No mastoid effusion. Soft tissues: Normal. IMPRESSION: 1. No acute intracranial findings. 2. Remote right parietal lobe infarct . Chronic and age-related change as above. To contact [facility] with a general question: [facility] - [phone] For direct physician to physician contact: Physician Hotline - [phone] [facility] ([facility] Facility ID #[id number])
--- NOTE | 2018-04-13 23:51 | RAD ---
EXAM: CT Cervical Spine Without Intravenous Contrast EXAM DATE/TIME: 04/13/2018 10:19 PM CLINICAL HISTORY: 72 years old, female; Injury or trauma; Fall; Initial encounter; Concussion /head injury; Additional info: Fall, pain TECHNIQUE: Axial computed tomography images of the cervical spine without intravenous contrast. All CT scans at this facility use at least one of these dose optimization techniques: automated exposure control; mA and/or kV adjustment per patient size (includes targeted exams where dose is matched to clinical indication); or iterative reconstruction. Coronal and sagittal reformatted images were created and reviewed. COMPARISON: SUJATA Alanis WO CT SPINE CERVICAL W/O 03/15/2018 6:42 AM FINDINGS: Vertebrae: No acute fracture identified. Vertebral body heights are maintained. Multilevel disc space narrowing again identified, There is stable grade 1 retrolisthesis of C3 on C4. Soft tissues: No prevertebral soft tissue edema. Scarring noted at right lung apex. DISCS/SPINAL CANAL/NEURAL FORAMINA: C2-C3: No disc herniation. No spinal stenosis. No neural foraminal narrowing. C3-C4: Mild bilateral neural foramen narrowing secondary to uncovertebral spurring and facet joint hypertrophy. No spinal stenosis. C4-C5: Small central disc protrusion. Mild bilateral facet joint hypertrophy. No significant neural foramen or spinal canal narrowing. C5-C6: Bilateral facet joint hypertrophy and right greater than left uncovertebral spurring results in right greater than left neural foramen narrowing. Mild spinal canal narrowing. C6-C7: No disc herniation. Facet joint hypertrophy and uncovertebral spurring results in bilateral neural foramen narrowing. No significant spinal canal narrowing. IMPRESSION: 1. No acute fracture or subluxation. 2. Multilevel degenerative change detailed above. To contact [facility] with a general question: Operations Center - [phone] For direct physician to physician contact: Physician Hotline - [phone] [facility] ([facility] Facility ID #[id number])
[2018-04-14 01:46] LABS: Urine Appearance Cloudy; Urine Blood Negative (Negative); Urine Color Yellow; Urine Ketones Negative (Negative); Urine Protein 2+(100 mg/dL) (Negative); Urine Red Blood Cell Absent (Absent); Urine Specific Gravity 1.024 (1.010-1.030); Urine Urobilinogen Negative (Negative); Urine White Blood Cell 1+(6-10/hpf) (Absent)
[2018-04-14 02:30] VITALS: BP 174/76
== END 2018-04-14 02:30 | disposition home or self-care (01) ==
LOC: ED 21:06
DX: S09.90XA Unspecified injury of head, initial encounter (principal); W06.XXXA Fall from bed, initial encounter; Y92.9 Unspecified place or not applicable; Z87.891 Personal history of nicotine dependence
CPT/HCPCS: 36415; 70450; 72125; 80053; 81003; 81015; 84484; 85025; 87086; 93005; 99283

== ENCOUNTER 2018-05-23 17:31 | Inpatient (IN) | payer MEDICARE, OTHER ==
--- OUTSIDE RECORDS SUMMARY | 2018-05-23 17:49 | XMS REPORT | Continuity of Care Document ---
:1945 External Reference #:[id number] Author Name Madison Alexis Care Team Providers Name Role Phone Boo Batres III, MD Primary Care Physician Unavailable Payers Type Date Identification Numbers Payment Provider Subscriber Effective: Policy Number: [id number] Todays Maricarmen Thomas 2017 Option/Lao pr Cherelle PayID: [id number] [address] [address] Attn: [place] [address] Policy Number: [id number] Sergey Villarreal PayID: [id number] [address] [place] [address] Expires: 2018 Policy Number: For Life Maricarmen Villarreal [id number] PayID: [id number] [address] [place] [address] Expires: 2017 Policy Number: [id number] Sergey Villarreal PayID: [id number] [address] [place] [address] Expires: 2017 Policy Number: [id number] Sergey Villarreal PayID: [id number] [address] [place] [address] Onset: 1985 Policy Number: [facility] Insurance [facility] Maricarmen Villarreal [id number] Group Number: [id number] [address] [address] Group Name: 5% [place] [address] PayID: [id number] Onset: 1985 Policy Number: [facility] Insurance [facility] Maricarmen Villarreal [id number] Group Number: [id number] [address] [address] Group Name: 10% [place] [address] PayID: [id number] Onset: 1985 Policy Number: [facility] Maricarmen Villarreal [id number] Group Number: [id number] [address] [address] Group Name: 25% [place] [facility] PayID: [id number] Onset: 1985 Policy Number: [facility] Maricarmen Villarreal [id number] Group Number: [id number] [address] [address] Group Name: 10% [place] [id number] PayID: [id number] Effective: 2016 Policy Number: [facility] Maricarmen Villarreal [id number] Solutions Expires: 2017 Group Number: [id number] [address] [address] PayID: [id number] [facility] [place] [address] Advance Directives Type Date Description Status Comment [...] 03/23/2017 Fibromyalgia ELIJAH Mora Active Onset: 02/05/2018 Neck pain Boo Batres M.D. Active Onset: 02/05/2018 Atrial flutter Boo Batres M.D. Active Onset: 11/19/2011 Chest pain Rosie Tanner M.D. Resolved: 12/17/2016 Family History Date Family Member(s) Problem(s) Comments General Heart Disease General Diabetes General Cancer : (age 50 Years) First Sister due to Cancer bone cancer Social History Type Date Description Comments Sex Unknown Marital Status 2017 Lives With Daughter Tobacco Use Start: Unknown current cigarette smoker Smoking Status Reviewed: 03/26/18 current cigarette smoker ETOH Use Denies alcohol use Tobacco Use Start: Unknown Light tobacco smoker (10 1 ppd max for over 40 or fewer cigarettes/day) years; began age 17 Exercise Does not exercise Type/Frequency Allergies, Adverse Reactions, Alerts Description No Known Drug Allergies Medications Medication Date Status Form Strength Qnty SIG Indications Ordering Provider Metoprolol 10/12 Active Tablets ER 100mg 30tab 1 by mouth Sophy S. Succinate ER 24HR s every day ( Shelton, take with N.P. 50mg tab q day) Metoprolol 10/12 Active Tablets ER 50mg 30tab 1 by mouth Sophy S. Succinate ER 24HR s every day ( Shelton, take with N.P. 100mg tab) Apap Extra 03/26 Active Tablets 500mg 1 tabs every Sophy S. Strength 12hrs as Shelton needed pain. N.P. mdd of acetaminophen 3000mg. Diltiazem HCL 02/14 Active Tablets ER 360mg 90tab 1 by mouth Sophy S. ER Coated 24HR s every day Shelton Beads N.P. Digoxin 02/10 Active Tablets 125mcg 90tab 1 by mouth Caleb /2017 s every day Carlene Portillo M.D. Torsemide 11/26 Active Tablets 5mg 90tab 2 by mouth Boo E. /2017 s every day as korey Batres M.D. Amitriptyline 10/28 Active Tablets 50mg 90tab take 1 tablet Boo E. HCL /2017 s by mouth Gisel, three times a M.D. day Voltaren 07/16 Active Gel 1% 300gm apply 2-3 M65.871 Boo E. times daily Gisel to affected M.D. ankle Omeprazole 06/[address] 20mg 90cap take one Boo E. s capsule by Gisel, mouth once M.D. daily Fluticasone 11/16 Active Suspension 50mcg/Act 16uni use one spray Akhil -Ronan Propionate ts in each D. Bee, nostril every M.D.,FACP day Pravastatin 11/12 Active Tablets 40mg 90tab take 1 tablet Caleb Sodium /2011 s by mouth at F. bedtime Marissa Portillo Centrum Silver 12/07 Active Tablets 1 po qd ana , Marissa Garcia Lidoderm Active Patches 5% 30uni topical 10 Unknown ts hours prn Aspir-[address] 81mg 90tab 3 by mouth Boo E. / s daily Marissa Batres Baclofen Active Tablets 10mg 90tab 1/2 tab by Boo E. / s mouth twice Gisel, daily M.DLadarius Calcium Active Tablets 600mg 1 po bid Unknown Vit C Active Chewtabs 125mg take one capsule bid Eliquis Active Tablets 5mg 180ta 1 by mouth Sophy S. /0000 bs twice a day Shelton, N.P. Folic Acid Active Tablets 1mg 90tab 1 by mouth Boo E. / s every day Marissa Batres Metoprolol 03/25 Hx Tablets ER 150 30tab 1 by mouth Sophy S. Succinate 24HR s every day Shelton - N.PLadarius 04/02 Diltiazem HCL 02/12 Hx Caps ER 360mg 90cap 1 by mouth Boo E. ER 24HR s every day Jennifer Batres M.D. 02/12 Demadex 03/03 Hx Tablets 10mg 14tab 1 tablet Caleb s daily as F. - needed for Lindsey 08/22 weight gain > M.D. 3 lbs Iron 03/03 Hx Tablets 325mg 90tab one by mouth Caleb Supplement s daily F. - , 02/09 M.D. Metoprolol 10/21 Hx Tablets 25mg 90tab 1/2 by mouth Caleb Tartrate s twice a day F. - , 11/25 M.D. Iron (Ferrous 10/17 Hx Tablets 256(28Fe) Caleb Gluconate) /2016 mg F. - , 10/17 M.D. Iron 10/17 Hx Tablets 325mg 30tab 1 tab by Caleb High-Potency s mouth every F. - day , 02/09 M.D. Lisinopril 10/14 Hx Tablets 5mg 90tab 1 by mouth Caleb s every day F. - hold as of , 11/07 4.25.17 M.D. Cartia XT 04/10 Hx Caps ER 120mg 180ca 1 by mouth in I10 24HR ps the morning F. - [place] [facility] [place] M.D. Augmentin 10/01 Hx Tablets 500-125mg 20tab 1 by mouth Boo Lennon s twice a day Jennifer Batres M.D. 03/05 Metoprolol 07/30 Hx Tablets ER 25mg 45tab 1/2 tab daily Caleb Succinate ER 24HR s (patient F. - brought in a , 10/21 Metoprolol M.D. Tar bottle) Prolia 02/27 Hx Solution 60mg/ml 60mg 60 mg sc M81.0 Boo Lennon qJennifer Fair M.D. 02/09 Z92.29 Prolia 08/25/2013 - Hx Solution 60mg/ml 60mg 60 mg sc Boo Lennon 01/09/2014 qrony Batres M.D. Metoprolol Tartrate 07/29/2013 - Hx Tablets 25mg 90tabs 1/2 tab by Claeb 07/30/2015 mouth twice F. Mauser, a day M.D. Alendronate Sodium 03/04/2013 - Hx Tablets 70mg 12tabs take one Boo Lennon 01/26/2015 tablet by mallory Batres once a M.D. week Metoprolol Tartrate 11/19/2011 - Hx Tablets 25mg 90tabs Stopped Caleb 08/01/2013 taking 1 lashae Roman ago. Marissa 1/2 po bid Septra DS 08/08/2011 - Hx Tablets 800-160mg 20tabs one po bid Boo ELadarius 08/18/2011 for ten days Marissa Batres Metoprolol Tartrate 06/05/2011 - Hx Tablets 25mg 300tab 2 po qam and Caleb 11/19/2011 s 1 po qpm Carlene Portillo M.D. Furosemide 03/27/2011 - Hx Tablets 20mg 1 po qam prn Boo Lennon 05/21/2012 Marissa Batres Chantix 09/27/2010 - Hx Tablets 0.5mg X use as Boo E. 09/27/2010 11 & 1 mg directed Stephani [...] 1/2 po at pm Caleb 03/05/2010 Carlene Portilol M.D. Sept DS 02/06/2010 - Hx Tablets 800-160mg 6tabs 1 po bid for Boo E. 02/13/2010 3 days Marissa Batres Chantix Continuing 12/19/2009 - Hx Tablets 1mg 1month 1 po bid Boo Lennon [facility] 08/13/2010 [facility] Marissa [facility] 11/20/2009 - Hx eval/Rx for Boo Saji 12/19/2009 chronic back Gisel pain Ami.Galindo. Chantix Starting 11/20/2009 - Hx Tablets 0.5mg [...] Tablets 10-325mg 120tab 1 tab po q6h [employer] ophen 10/15/2016 s (pt states Marcos, she takes M.D. routinely every 4 hours) Baclofen 02/07/2009 - Hx Tablets 10mg 42tabs 1-2 tab po 7 Thananart, 08/07/2009 tid prn 2 Radha, 9 M.D. . 1 Clonazepam 12/07/2008 - Hx Tablets 2mg 60tabs 1 tablet po 3 Bobbi 08/07/2009 bid 0 Cotton, 0 M.D. . 0 2 Percocet 12/07/2008 - Hx Tablets 10-325mg 80tabs 1 q4h prn Thanjohnson, 03/29/2009 Marissa Garcia Tizanidine HCL 12/07/2008 - Hx Tablets 4mg 120tab 1 po q6h Thananart, 07/20/2009 steve Garcia M.D. Amitriptyline HCL 12/07/2008 - Hx Tablets 50mg 90tabs 1 tab po tid Boo Lennon 04/25/2010 Marissa Batres Fosamax 12/07/2008 - Hx Tablets 70mg 12tabs one tablet Boo Lennon 03/04/2013 weekly Marissa Batres Diazepam 12/07/2008 - Hx Tablets 10mg 120tab 1 po tid Thananart, 04/25/2009 steve Garcia M.D. Propranolol HCL 12/07/2008 - Hx Tablets 10mg 180tab 1 po bid Boo Lennon 02/13/2010 steve Batres M.D. Furosemide 12/07/2008 - [...] 2 po qd Thananart, 02/13/2010 Marissa Garcia Fish Oil 12/07/2008 - Hx Capsules 1000mg 1 po qd Thananart, 04/25/2018 Marissa Garcia Lyrica - Hx Capsules 75mg 180cap 2 tabs po Thananart, 08/07/2009 s [facility] Marissa Garcia Tizanidine HCL - Hx [...] 10/21/2016 every day maeve Roman as of M.DLadarius 17 Furosemide - Hx Tablets 20mg 90tabs 1 [...] 90tabs as directed Anitra 12/17/2016 based on herbert Sorenson of Marissa patients Inr Acetaminophen - Hx [...] 1 inhalation Unknown 02/09/2018 /Dose twice daily [facility] Slow Release - Hx Tablets ER 143(45Fe) 1 po qd Unknown Iron 04/22/2018 mg Hair Skin And Nails - Hx Tablets 2 po qd Unknown Formula 08/22/2017 Zinc - Hx Capsules 1 by mouth Unknown 04/22/2018 bid Magnesium Sulfate - Hx 2 po qd Unknown 04/25/2018 Metoprolol Tartrate - Hx Tablets 50mg 180tab 1 tab twice Boo E. 03/25/2018 s daily. Marissa Batres Diltiazem CD - Hx Caps ER 24HR 360mg 90caps 1 by mouth Sophy Perez 02/14/2018 every day Shelton, N.P. Ibuprofen - Hx Capsules 200mg as needed Unknown 02/09/2018 every 6 hrs Medications Administered in Office Medication Date Status Form Strength Qnty SIG Indications Ordering Provider Prolia Administered Injection Boo E. Injection, 016 Roscoe Batresosumab, 1MG M.DLadarius Depomedrol Administered Injection Dirk Gallo, 40MG 016 M.DLadarius Prolia Administered Injection Boo E. Injection, 016 Roscoe Batresosumab, 1MG M.DLadarius Prolia Administered Injection Nurse Visit Injection, 015 C Denosumab, 1MG Prolia 03/31/2 Administered Injection Boo E. Injection, 015 Gisel, Denosumab, 1MG M.D. Depomedrol Administered Injection Dirk Gallo, 80MG 014 M.D. Depomedrol Administered Injection Dirk Gallo, 80MG 011 M.D. Immunizations CPT Code Status Date Vaccine Lot # [id number] Given 03/24/2017 Influenza Virus Vaccine, Quadrivalent, Split, Preservative Free 15780 Given 03/24/2017 Pneumococcal Conjugate Vaccine 13 Valent For Intramuscular Use 70453 Given 04/30/2016 Influenza Virus Vaccine, Quadrivalent, Split [id number] Virus, [place] Use 52401 Given 06/25/2015 Influenza Virus Vaccine, Quadrivalent, Split, [id number] Preservative Free 19225 Given 09/19/2014 Pneumococcal Conjugate Vaccine 13 Valent For [id number] Intramuscular Use 11130 Given 07/28/2013 Tdap - Tetanus/Diptheria/Acellular Pertussis [id number] 97568 Given 03/11/2013 Pneumonia Vaccine [id number] 74134 Given 03/11/2013 Flu Vaccine Split Virus Preservative Free For [id number] Indiv 3Yr Older [id number] Given 03/27/2011 Fluzone Vaccine [id number] 29493 Given 05/24/2009 Influenza Virus Vaccine, Pandemic Formulation [id number] 81370 Given 05/24/2009 Administration Swine Flu Shot 92878 Given 06/24/2004 Td Toxoids Adsorbed For Use [id number] Or Older For Intramuscular Use Vital Signs Date Vital Result Comment 03/26/2018 10:18am Height 65 inches 5'5" Weight 132.00 lb Heart Rate 84 /min BP Systolic Sitting 100 mmHg BP Diastolic Sitting 79 mmHg BP Systolic Standing 115 mmHg BP Diastolic Standing 80 mmHg Respiratory Rate 19 /min Pain Level 5 back and ribs on pain managment O2 % BldC Oximetry 97 % BMI (Body Mass Index) 22.0 kg/m2 02/12/2018 11:06am Height 65 inches 5'5" Weight 149.00 lb w/o shoes BP Systolic Sitting 134 mmHg Lue reg cuff BP Diastolic Sitting 78 mmHg Lue reg cuff BMI (Body Mass Index) 24.8 kg/m2 Ejection Fraction > 65% Echo 09/24/17 02/10/2018 10:47am Height 65 inches 5'5" Weight 149.00 lb W/ Shoes BP Systolic Sitting 130 mmHg Lue Reg Cuff BP Diastolic Sitting 78 mmHg Lue Reg Cuff BMI (Body Mass Index) 24.8 kg/m2 Ejection Fraction GREATER 6% ECHO 09/24/17 02/05/2018 12:00pm Height 65 inches 5'5" Weight 151.00 lb Heart Rate 61 /min BP Systolic Sitting 122 mmHg BP Diastolic Sitting 58 mmHg O2 % BldC Oximetry 95 % BMI (Body Mass Index) 25.1 kg/m2 12/15/2017 10:24am Weight 156.00 lb Heart Rate 74 /min BP Systolic 135 mmHg BP Diastolic 72 mmHg Respiratory Rate 17 /min Ejection Fraction 65% 09/24/2017 echo 11/02/2017 2:53pm Weight 158.00 lb Heart Rate 142 /min BP Systolic Sitting 136 mmHg BP Diastolic Sitting 84 mmHg O2 % BldC Oximetry 99 % 08/24/2017 1:47pm Weight 159.00 lb Heart Rate 61 /min BP Systolic Sitting 130 mmHg BP Diastolic Sitting 66 mmHg O2 % BldC Oximetry 96 % 05/20/2017 9:13am Height 65 inches 5'5" Weight 160.00 lb with shoes Heart Rate 72 /min BP Systolic Sitting 148 mmHg LA reg cuff BP Diastolic Sitting 84 mmHg LA reg cuff BMI (Body Mass Index) 26.6 kg/m2 Ejection Fraction 60%-65% echo 03/31/17 03/23/2017 2:33pm Height 65 inches 5'5" Weight 158.00 lb Heart Rate 64 /min BP Systolic 108 mmHg BP Diastolic 58 mmHg BMI (Body Mass Index) 26.3 kg/m2 Ejection Fraction 60-65% Echo 2016 02/10/2017 3:46pm Height 65 inches 5'5" Weight 156.50 lb with shoes Heart Rate 80 /min BP Systolic Sitting 160 mmHg LA reg cuff BP Diastolic Sitting 84 mmHg LA reg cuff BMI (Body Mass Index) 26.0 kg/m2 Ejection Fraction 60% - 65% echo 10/24/16 11/07/2016 9:03am Height 65 inches 5'5" Weight 180.00 lb Heart Rate 82 /min BP Systolic Sitting 165 mmHg Lue reg cuff BP Diastolic Sitting 75 mmHg Lue reg cuff BP Systolic Standing 158 mmHg Lue reg cuff BP Diastolic Standing 72 mmHg Lue reg cuff Respiratory Rate 16 /min BMI (Body Mass Index) 30.0 kg/m2 10/21/2016 2:59pm Height 65 inches 5'5" Weight 178.50 lb with shoes Heart Rate 76 /min BP Systolic Sitting 134 mmHg Lue reg cuff BP Diastolic Sitting 68 mmHg Lue reg cuff BP Systolic Standing 128 mmHg Lue reg cuff BP Diastolic Standing 62 mmHg Lue reg cuff Respiratory Rate 17 /min BMI (Body Mass Index) 29.7 kg/m2 10/14/2016 2:40pm Weight 181.00 lb with shoes Heart Rate 74 /min BP Systolic Sitting 112 mmHg LA lrgcuff BP Diastolic Sitting 60 mmHg LA lrgcuff BP Systolic Standing 110 mmHg la repeat sitting BP Diastolic Standing 56 mmHg la repeat sitting Ejection Fraction >65% echo 09/22/16 10/07/2016 1:56pm Weight 183.00 lb Heart Rate 82 /min BP Systolic Sitting 122 mmHg BP Diastolic Sitting 76 mmHg Respiratory Rate 15 /min Body Temperature 98.1 F O2 % BldC Oximetry 98 % 09/11/2016 1:58pm Height 65 inches 5'5" Weight 187.00 lb Heart Rate 72 /min BP Systolic Sitting 114 mmHg Ra reg BP Diastolic Sitting 68 mmHg Ra reg BMI (Body Mass Index) 31.1 kg/m2 Ejection Fraction 60%-65% 08/08/16 Arnav 09/02/2016 10:26am Height 65 inches 5'5" Weight 185.50 lb with shoes Heart Rate 76 /min BP Systolic Sitting 144 mmHg LA reg cuff BP Diastolic Sitting 72 mmHg LA reg cuff BMI (Body Mass Index) 30.9 kg/m2 Ejection Fraction 60% - 65% stress test 08/06/16 07/22/2016 8:15am Height 65 inches 5'5" Weight 184.25 lb with shoes Heart Rate 84 /min BP Systolic Sitting 128 mmHg LA lrg cuff BP Diastolic Sitting 68 mmHg LA lrg cuff BMI (Body Mass Index) 30.7 kg/m2 Ejection Fraction 55% - 60% echo 03/11/16 07/16/2016 10:59am Height 65 inches 5'5" Weight 186.00 lb Pain Level 5 BMI (Body Mass Index) 30.9 kg/m2 06/30/2016 8:43am Height 65 inches 5'5" Weight 186.00 lb Heart Rate 76 /min BP Systolic Sitting 128 mmHg BP Diastolic Sitting 70 mmHg Pain Level 7 BMI (Body Mass Index) 30.9 kg/m2 06/26/2016 2:01pm Height 65 inches 5'5" Heart Rate 80 /min Apical BP Systolic 128 mmHg Ra, reg BP Diastolic 76 mmHg Ra, reg BP Systolic Sitting 134 mmHg LA, reg BP Diastolic Sitting 76 mmHg LA, reg BP Systolic Standing 118 mmHg LA, reg BP Diastolic Standing 70 mmHg LA, reg 06/05/2016 8:53am Height 65 inches 5'5" Weight 182.00 lb Heart Rate 90 /min BP Systolic 168 mmHg LA, regular BP Diastolic 90 mmHg LA, regular BP Systolic Sitting 171 mmHg LA, home unit BP Diastolic Sitting 92 mmHg LA, home unit BMI (Body Mass Index) 30.3 kg/m2 Ejection Fraction 55-60% echo 03/11/16 05/08/2016 9:51am Height 65 inches 5'5" Weight 184.00 lb w/shoes Heart Rate 92 /min BP Systolic Sitting 190 mmHg LA lg cuff BP Diastolic Sitting 86 mmHg LA lg cuff BMI (Body Mass Index) 30.6 kg/m2 Ejection Fraction 55-60% Echo 03/11/16 04/30/2016 8:55am Height 65 inches 5'5" Weight 180.12 lb Heart Rate 100 /min BP Systolic 160 mmHg BP Diastolic 80 mmHg Body Temperature 99.2 F O2 % BldC Oximetry 97 % BMI (Body Mass Index) 30.0 kg/m2 04/10/2016 2:53pm Height 65 inches 5'5" Weight 184.00 lb w/ shoes Heart Rate 70 /min reg BP Systolic Sitting 144 mmHg Rue, reg cuff BP Diastolic Sitting 84 mmHg Rue, reg cuff BP Systolic Standing 140 mmHg Rue BP Diastolic Standing 80 mmHg Rue Respiratory Rate 16 /min BMI (Body Mass Index) 30.6 kg/m2 Ejection Fraction 55-60% as of 03/11/16 echo 03/24/2016 8:10am Height 65 inches 5'5" Weight 189.00 lb Pain Level 10 BMI (Body Mass Index) 31.4 kg/m2 03/05/2016 10:48am Height 64.5 inches 5'4.50" Weight 183.00 lb w/shoes Heart Rate 84 /min BP Systolic Sitting 158 mmHg LA lg cuff BP Diastolic Sitting 80 mmHg LA lg cuff BP Systolic Standing 158 mmHg la repeat sit BP Diastolic Standing 72 mmHg la repeat sit BMI (Body Mass Index) 30.9 kg/m2 Ejection Fraction 60-65% Echo 02/12/10 02/18/2016 4:30pm Height 64.5 inches 5'4.50" Weight 182.38 lb Heart Rate 89 /min BP Systolic 130 mmHg BP Diastolic 82 mmHg Body Temperature 99.3 F O2 % BldC Oximetry 97 % BMI (Body Mass Index) 30.8 kg/m2 09/25/2015 1:11pm Height 64.5 inches 5'4.50" Weight 169.00 lb Heart Rate 81 /min BP Systolic Sitting 140 mmHg BP Diastolic Sitting 80 mmHg Body Temperature 98.1 F O2 % BldC Oximetry 97 % BMI (Body Mass Index) 28.6 kg/m2 08/24/2015 1:52pm Height 65.75 inches 5'5.75" Weight 169.00 lb Heart Rate 72 /min BP Systolic Sitting 144 mmHg LA,reg BP Diastolic Sitting 82 mmHg LA,reg BMI (Body Mass Index) 27.5 kg/m2 Ejection Fraction 60%-65% 02/12/10 07/30/2015 1:27pm Height 65.75 inches 5'5.75" Weight 171.75 lb w/shoes Heart Rate 92 /min BP Systolic Sitting 170 mmHg LA reg cuff BP Diastolic Sitting 90 mmHg LA reg cuff BMI (Body Mass Index) 27.9 kg/m2 Ejection Fraction 60-65 echo 02/12/10 06/25/2015 2:47pm Weight 172.00 lb Heart Rate 80 /min BP Systolic Sitting 156 mmHg BP Diastolic Sitting 83 mmHg Body Temperature 98.2 F 03/19/2015 9:22am Height 65 inches 5'5" Weight 174.00 lb Heart Rate 78 /min BP Systolic Sitting 150 mmHg BP Diastolic Sitting 80 mmHg Pain Level 6 neck BMI (Body Mass Index) 29.0 kg/m2 01/26/2015 11:44am Height 65 inches 5'5" Weight 186.00 lb Heart Rate 88 /min BP Systolic Sitting 134 mmHg BP Diastolic Sitting 82 mmHg Body Temperature 98.8 F O2 % BldC Oximetry 98 % BMI (Body Mass Index) 30.9 kg/m2 09/19/2014 1:47pm Height 65 inches 5'5" Weight 193.50 lb Heart Rate 91 /min BP Systolic Sitting 150 mmHg BP Diastolic Sitting 84 mmHg Body Temperature 98.6 F O2 % BldC Oximetry 97 % BMI (Body Mass Index) 32.2 kg/m2 02/27/2014 11:24am Height 65 inches 5'5" Weight 203.00 lb Heart Rate 80 /min BP Systolic Sitting 160 mmHg BP Diastolic Sitting 88 mmHg Body Temperature 98.9 F BMI (Body Mass Index) 33.8 kg/m2 01/09/2014 1:21pm Height 65 inches 5'5" Weight 20.25 lb Heart Rate 84 /min BP Systolic Sitting 154 mmHg BP Diastolic Sitting 74 mmHg Respiratory Rate 16 /min BMI (Body Mass Index) 3.4 kg/m2 09/05/2013 10:18am Height 65 inches 5'5" Weight 176.00 lb Heart Rate 91 /min BP Systolic 145 mmHg BP Diastolic 89 mmHg BMI (Body Mass Index) 29.3 kg/m2 08/24/2013 1:43pm Height 65 inches 5'5" Weight 184.00 lb Heart Rate 80 /min BP Systolic Sitting 140 mmHg BP Diastolic Sitting 80 mmHg Body Temperature 98.8 F BMI (Body Mass Index) 30.6 kg/m2 07/28/2013 10:46am Height 65 inches 5'5" Weight 176.25 lb Heart Rate 96 /min BP Systolic Sitting 146 mmHg BP Diastolic Sitting 86 mmHg BMI (Body Mass Index) 29.3 kg/m2 05/23/2013 2:07pm Height 65.75 inches 5'5.75" Weight 176.00 lb Heart Rate 96 /min BP Systolic Sitting 140 mmHg BP Diastolic Sitting 80 mmHg BMI (Body Mass Index) 28.6 kg/m2 03/11/2013 10:02am Height 55.75 inches 4'7.75" Weight 171.50 lb Heart Rate 88 /min BP Systolic Sitting 132 mmHg BP Diastolic Sitting 86 mmHg BMI (Body Mass Index) 38.8 kg/m2 05/21/2012 1:59pm Height 65.25 inches 5'5.25" Weight 170.00 lb Heart Rate 80 /min BP Systolic 138 mmHg BP Diastolic 80 mmHg BMI (Body Mass Index) 28.1 kg/m2 01/28/2012 1:20pm Height 65.25 inches 5'5.25" Weight 171.75 lb Heart Rate 80 /min BP Systolic Sitting 124 mmHg BP Diastolic Sitting 78 mmHg BMI (Body Mass Index) 28.4 kg/m2 12/11/2011 11:04am Height 64.75 inches 5'4.75" Weight 176.38 lb Heart Rate 92 /min rechecked 80 and reg BP Systolic Sitting 90 mmHg BP Diastolic Sitting 62 mmHg BMI (Body Mass Index) 29.6 kg/m2 11/19/2011 11:21am Height 64.75 inches 5'4.75" Weight 178.25 lb Heart Rate 74 /min BP Systolic 120 mmHg BP Diastolic 70 mmHg BP Systolic Standing 100 mmHg BP Diastolic Standing 70 mmHg Respiratory Rate 16 /min BMI (Body Mass Index) 29.9 kg/m2 11/13/2011 10:44am Height 64.75 inches 5'4.75" Weight 179.25 lb Heart Rate 80 /min BP Systolic Sitting 121 mmHg BP Diastolic Sitting 76 mmHg BMI (Body Mass Index) 30.1 kg/m2 10/23/2011 11:06am Weight 184.00 lb Heart Rate 71 /min BP Systolic Sitting 108 mmHg BP Diastolic Sitting 68 mmHg Body Temperature 97.8 F lt ear O2 % BldC Oximetry 97 % room air 07/31/2011 2:48pm Height 65 inches 5'5" Weight 192.50 lb Heart Rate 96 /min BP Systolic Sitting 144 mmHg BP Diastolic Sitting 84 mmHg BMI (Body Mass Index) 32.0 kg/m2 06/05/2011 2:12pm Height 65.5 inches 5'5.50" Weight 199.00 lb Heart Rate 111 /min BP Systolic Sitting 144 mmHg L BP Diastolic Sitting 70 mmHg L BMI (Body Mass Index) 32.6 kg/m2 03/27/2011 3:55pm Height 65.5 inches 5'5.50" Weight 210.25 lb BP Systolic 148 mmHg BP Diastolic 82 mmHg BMI (Body Mass Index) 34.5 kg/m2 05/13/2010 1:43pm Weight 205.00 lb Heart Rate 76 /min BP Systolic Sitting 146 mmHg BP Diastolic Sitting 86 mmHg 04/25/2010 1:05pm Weight 204.00 lb Heart Rate 84 /min BP Systolic 118 mmHg BP Diastolic 80 mmHg 03/19/2010 10:40am Heart Rate 80 /min BP Systolic 122 mmHg BP Diastolic 72 mmHg Respiratory Rate 16 /min Body Temperature 97.8 F 03/15/2010 10:53am Weight 196.00 lb Heart Rate 82 /min BP Systolic Sitting 132 mmHg BP Diastolic Sitting 82 mmHg 02/13/2010 11:17am Height 65 inches 5'5" Heart Rate 79 /min BP Systolic Sitting 150 mmHg L BP Diastolic Sitting 74 mmHg L 02/06/2010 3:17pm Weight 194.00 lb Heart Rate 81 /min BP Systolic Sitting 160 mmHg BP Diastolic Sitting 82 mmHg 01/17/2010 1:47pm Weight 189.00 lb Heart Rate 98 /min BP Systolic Sitting 142 mmHg BP Diastolic Sitting 72 mmHg 12/26/2009 9:53am Weight 187.00 lb Heart Rate 88 /min BP Systolic Sitting 120 mmHg BP Diastolic Sitting 80 mmHg 11/26/2009 10:50am Heart Rate 82 /min BP Systolic Sitting 124 mmHg BP Diastolic Sitting 70 mmHg 11/20/2009 2:42pm Weight 195.00 lb Heart Rate 78 /min BP Systolic Sitting 140 mmHg BP Diastolic Sitting 84 mmHg 09/28/2009 10:44am Weight 199.00 lb Heart Rate 78 /min BP Systolic 160 mmHg BP Diastolic 90 mmHg 08/28/2009 10:40am Weight 207.00 lb Heart Rate 88 /min BP Systolic Sitting 110 mmHg BP Diastolic Sitting 62 mmHg 08/07/2009 10:01am Weight 206.00 lb Heart Rate 72 /min BP Systolic Sitting 146 mmHg BP Diastolic Sitting 90 mmHg 07/20/2009 11:24am Weight 202.00 lb Heart Rate 64 /min BP Systolic Sitting 142 mmHg BP Diastolic Sitting 84 mmHg Body Temperature 98.5 F 06/19/2009 8:37am Weight 199.00 lb Heart Rate 80 /min BP Systolic Sitting 112 mmHg BP Diastolic Sitting 68 mmHg 05/28/2009 9:46am Weight 198.00 lb Heart Rate 74 /min BP Systolic Sitting 160 mmHg BP Diastolic Sitting 86 mmHg Body Temperature 98.6 F 04/25/2009 8:52am Weight 206.50 lb Heart Rate 80 /min BP Systolic Sitting 142 mmHg BP Diastolic Sitting 82 mmHg Body Temperature 98.5 F 04/12/2009 10:32am Weight 202.25 lb Heart Rate 77 /min BP Systolic Sitting 125 mmHg BP Diastolic Sitting 83 mmHg Body Temperature 97.2 F 03/21/2009 9:10am Weight 201.00 lb Heart Rate 62 /min BP Systolic Sitting 132 mmHg BP Diastolic Sitting 84 mmHg 02/07/2009 10:09am Weight 211.25 lb Heart Rate 80 /min BP Systolic Sitting 146 mmHg BP Diastolic Sitting 88 mmHg 12/07/2008 3:02pm Weight 211.50 lb Heart Rate 68 /min BP Systolic Sitting 156 mmHg BP Diastolic Sitting 84 mmHg Results Test Date Facility Test Result H/L Range Note CBC Auto Diff 04/13/2018 [facility] White Blood 12.3 10^3/uL High 3.5-10.[address] [place] [address] [phone] Red Blood Count 3.72 10^6/uL Low 4.00-5.40 Hemoglobin 9.3 g/dL Low 12.0-16.0 Hematocrit 31 % Low 35-47 Mean Corpuscular Volume 82 fL N 80-97 Mean Corpuscular Hemoglobin 25 pg Low 27-31 Mean Corpuscular HGB Conc 31 g/dL N 31-36 Red Cell Distribution Width 22 % High 10.5-15 Platelet Count 126 10^3/uL Low 150-450 Mean Platelet Volume 8.8 um3 N 7.4-10.4 Abs Neutrophils 8.8 10^3/uL High 1.5-7.7 Abs Lymphocytes 2.1 10^3/uL N 1.0-4.8 Abs Monocytes 0.9 10^3/uL High 0-0.8 Abs Eosinophils 0.5 10^3/uL N 0-0.6 Abs Basophils 0.1 10^3/uL N 0-0.2 Abs Nucleated RBC 0 10^3/uL Granulocyte % 71.2 % N 38-83 Lymphocyte % 17.3 % Low 25-47 Monocyte % 7.1 % High 0-7 Eosinophil % 3.7 % N 0-6 Basophil % 0.7 % N 0-2 Nucleated Red Blood Cells % 0.1 Comp Metabolic Panel 04/13/2018 [facility] Sodium 143 mmol/L N 135-[address] [place] [address] [phone] Potassium 4.2 mmol/L N 3.5-5.0 Co2 Carbon Dioxide 23 mmol/L N 22-32 Glucose 108 mg/dL High 70-100 Blood Urea Nitrogen 24 mg/dL N 6-24 Creatinine 1.16 mg/dL High 0.51-0.95 BUN/Creatinine Ratio 20.7 High 8-20 Calcium 8.8 mg/dL N 8.6-10.3 Total Protein 5.8 g/dL Low 6.4-8.9 Albumin 3.2 g/dL N 3.2-5.2 Globulin 2.6 g/dL N 2-4 Albumin/Globulin Ratio 1.2 N 1-3 Total Bilirubin 0.20 mg/dL N 0.2-1.0 Alkaline Phosphatase 105 U/L High 34-104 Alt 10 U/L N 7-52 Ast 12 U/L Low 13-39 Egfr Non- 46.1 >60 Egfr 55.7 >60 1 Chloride 118 mmol/L High 101-111 Anion Gap 2 mmol/L N 2-11 Laboratory test 04/13/2018 [facility] Troponin-I 0.04 ng/mL High <0.[address] (TnI) [place] [address] [phone] Urinalysis 04/13/2018 [facility] Urine Color Yellow Profile [address] [place] [address] [phone] Urine Appearance Cloudy Urine Specific [place] 1.024 N 1.010-1.030 Urine pH 5.0 N 5-9 Urine Urobilinogen Negative Negative Urine Ketones Negative Negative Urine Protein 2+(100 mg/dL) Abnormal Negative Urine Leukocytes 1+ Abnormal Negative Urine Blood Negative Negative Urine Nitrite Negative Negative Urine Bilirubin Negative Negative Urine Glucose Negative Negative Urine White Blood Cell 1+(6-10/hpf) Abnormal Absent Urine Red Blood Cell Absent Absent Urine Bacteria Absent Absent Urine Squamous Epithelial Cell Present Abnormal Absent Urine Hyaline Casts Present Abnormal Absent Urine Culture And 04/13/2018 [facility] Urine SEE RESULT [address] [place] [address] [phone] CBC Auto Diff 03/15/2018 [facility] White Blood 12.4 High 3.5- [address] Count 10^3/uL 0.8 [place] [address] [phone] Red Blood Count 3.87 10^6/uL Low 4.00-5.40 Hemoglobin 9.0 g/dL Low 12.0-16.0 Hematocrit 30 % Low 35-47 Mean Corpuscular Volume 78 fL Low 80-97 Mean Corpuscular Hemoglobin 23 pg Low 27-31 Mean Corpuscular HGB Conc 30 g/dL Low 31-36 Red Cell Distribution Width 18 % High 10.5-15 Platelet Count 153 10^3/uL N 150-450 Mean Platelet Volume 8.6 um3 N 7.4-10.4 Abs Neutrophils 8.3 10^3/uL High 1.5-7.7 Abs Lymphocytes 3.1 10^3/uL N 1.0-4.8 Abs Monocytes 0.9 10^3/uL High 0-0.8 Abs Eosinophils 0.1 10^3/uL N 0-0.6 Abs Basophils 0.1 10^3/uL N 0-0.2 Abs Nucleated RBC 0 10^3/uL Granulocyte % 67.3 % N 38-83 Lymphocyte % 24.8 % Low 25-47 Monocyte % 7.0 % N 0-7 Eosinophil % 0.5 % N 0-6 Basophil % 0.4 % N 0-2 Nucleated Red Blood Cells % 0 Comp Metabolic Panel 03/15/2018 [facility] Sodium 142 mmol/L N 135-[address] [place] [address] [phone] Potassium 3.9 mmol/L N 3.5-5.0 Co2 Carbon Dioxide 21 mmol/L Low 22-32 Glucose 89 mg/dL N 70-100 Blood Urea Nitrogen 32 mg/dL High 6-24 Creatinine 1.21 mg/dL High 0.51-0.95 BUN/Creatinine Ratio 26.4 High 8-20 Calcium 9.0 mg/dL N 8.6-10.3 Total Protein 6.2 g/dL Low 6.4-8.9 Albumin 3.6 g/dL N 3.2-5.2 Globulin 2.6 g/dL N 2-4 Albumin/Globulin Ratio 1.4 N 1-3 Total Bilirubin 0.20 mg/dL N 0.2-1.0 Alkaline Phosphatase 98 U/L N 34-104 Alt 18 U/L N 7-52 Ast 15 U/L N 13-39 Egfr Non- 43.9 >60 Egfr 53.1 >60 4 Chloride 115 mmol/L High 101-111 Anion Gap 6 mmol/L N 2-11 Laboratory test 03/15/2018 [facility] Magnesium 2.2 mg/dL N 1.9-2.[address] [place] [address] [phone] Troponin-I (TnI) 0.04 ng/mL High <0.04 5 Laboratory test 03/05/2018 [facility] B-Type 610 pg/mL High [address] [place] [address] Peptide BNP [phone] Magnesium 2.1 mg/dL N 1.9-2.7 Digoxin 1.5 ng/ml N 0.8-2.0 CBC Auto Diff 03/05/2018 [facility] White Blood 7.8 10^3/uL N 3.5-10.[address] [place] [address] [phone] Red Blood Count 3.41 10^6/uL Low 4.00-5.40 Hemoglobin 8.4 g/dL Low 12.0-16.0 Hematocrit 27 % Low 35-47 Mean Corpuscular Volume 80 fL N 80-97 Mean Corpuscular Hemoglobin 25 pg Low 27-31 Mean Corpuscular HGB Conc 31 g/dL N 31-36 Red Cell Distribution Width 17 % High 10.5-15 Platelet Count 209 10^3/uL N 150-450 Mean Platelet Volume 9.1 um3 N 7.4-10.4 Abs Neutrophils 5.4 10^3/uL N 1.5-7.7 Abs Lymphocytes 1.7 10^3/uL N 1.0-4.8 Abs Monocytes 0.6 10^3/uL N 0-0.8 Abs Eosinophils 0.1 10^3/uL N 0-0.6 Abs Basophils 0.1 10^3/uL N 0-0.2 Abs Nucleated RBC 0 10^3/uL Granulocyte % 69.0 % N 38-83 Lymphocyte % 21.4 % Low 25-47 Monocyte % 7.6 % High 0-7 Eosinophil % 1.0 % N 0-6 Basophil % 1.0 % N 0-2 Nucleated Red Blood Cells % 0.1 Iron & Iron Binding 03/05/2018 [facility] Iron 16 g/dL Low 50-[address] [place] [address] [phone] Unsaturated Iron Binding 382 g/dL Total Iron Binding Capacity 398 g/dL N 250-450 Transferrin 284 mg/dL N 203-362 % Iron Saturation 4 % Low 15-55 Lipid Panel - 03/05/2018 [facility] Creatine Kinase(CK) 48 U/L N 10-[address] [place] [address] [phone] Lipid Profile 03/05/2018 [facility] Triglycerides 93 mg/dL 7 (Trig/Chol/HDL [address] ) [place] [address] [phone] Cholesterol 130 mg/dL 8 HDL Cholesterol 60.3 mg/dL 9 LDL Cholesterol 51 mg/dL 10 Comp Metabolic Panel 03/05/2018 [facility] Sodium 145 mmol/L N 135-[address] [place] [address] [phone] Potassium 3.7 mmol/L N 3.5-5.0 Co2 Carbon Dioxide 25 mmol/L N 22-32 Glucose 83 mg/dL N 70-100 Blood Urea Nitrogen 28 mg/dL High 6-24 Creatinine 1.05 mg/dL High 0.51-0.95 BUN/Creatinine Ratio 26.7 High 8-20 Calcium 8.8 mg/dL N 8.6-10.3 Total Protein 5.8 g/dL Low 6.4-8.9 Albumin 3.4 g/dL N 3.2-5.2 Globulin 2.4 g/dL N 2-4 Albumin/Globulin Ratio 1.4 N 1-3 Total Bilirubin 0.30 mg/dL N 0.2-1.0 Alkaline Phosphatase 95 U/L N 34-104 Alt 18 U/L N 7-52 Ast 18 U/L N 13-39 Egfr Non- 51.7 >60 Egfr 62.5 >60 11 Chloride 112 mmol/L High 101-111 Anion Gap 8 mmol/L N 2-11 Laboratory test 01/06/2018 [facility] Troponin-I 0.04 High < 0.04 [address] (TnI) ng/[place] [address] [phone] CBC Auto Diff 01/06/2018 [facility] White Blood 9.3 N 3.5- 10.[address] Count 10^3/[place] [address] [phone] Red Blood Count 3.66 10^6/uL Low 4.00-5.40 Hemoglobin 10.2 g/dL Low 12.0-16.0 Hematocrit 32 % Low 35-47 Mean Corpuscular Volume 87 fL N 80-97 Mean Corpuscular Hemoglobin 28 pg N 27-31 Mean Corpuscular HGB Conc 32 g/dL N 31-36 Red Cell Distribution Width 15 % N 10.5-15 Platelet Count 172 10^3/uL N 150-450 Mean Platelet Volume 9.1 um3 N 7.4-10.4 Abs Neutrophils 6.2 10^3/uL N 1.5-7.7 Abs Lymphocytes 2.1 10^3/uL N 1.0-4.8 Abs Monocytes 0.7 10^3/uL N 0-0.8 Abs Eosinophils 0.1 10^3/uL N 0-0.6 Abs Basophils 0.1 10^3/uL N 0-0.2 Abs Nucleated RBC 0 10^3/uL Granulocyte % 66.8 % N 38-83 Lymphocyte % 23.0 % Low 25-47 Monocyte % 7.7 % High 0-7 Eosinophil % 1.5 % N 0-6 Basophil % 1.0 % N 0-2 Nucleated Red Blood Cells % 0 Inr/Protime 01/06/2018 [facility] Inr 1.17 High 0.77-1.[address] [place] [address] [phone] Laboratory test 01/06/2018 [facility] Partial 32.6 N 26.0- 36.[address] [address] Time PTT [phone] B-Type Natriuretic Peptide BNP 680 pg/mL High 13 Lactic Acid 0.5 mmol/L N 0.5-2.0 14 Troponin-I (TnI) 0.04 ng/mL High <0.04 15 Comp Metabolic Panel 01/06/2018 [facility] Sodium 141 mmol/L N 135-[address] [place] [address] [phone] Potassium 4.2 mmol/L N 3.5-5.0 Co2 Carbon Dioxide 23 mmol/L N 22-32 Glucose 89 mg/dL N 70-100 Blood Urea Nitrogen 24 mg/dL N 6-24 Creatinine 1.24 mg/dL High 0.51-0.95 BUN/Creatinine Ratio 19.4 N 8-20 Calcium 8.9 mg/dL N 8.6-10.3 Total Protein 6.0 g/dL Low 6.4-8.9 Albumin 3.3 g/dL N 3.2-5.2 Globulin 2.7 g/dL N 2-4 Albumin/Globulin Ratio 1.2 N 1-3 Total Bilirubin 0.20 mg/dL N 0.2-1.0 Alkaline Phosphatase 105 U/L High 34-104 Alt 18 U/L N 7-52 Ast 13 U/L N 13-39 Egfr Non- 42.6 >60 Egfr 51.6 >60 16 Chloride 113 mmol/L High 101-111 Anion Gap 5 mmol/L N 2-11 Laboratory test 01/06/2018 [facility] Procalcitonin < 0.1 ng/mL <0.6 [address] [place] [address] [phone] D Dimer Quantitative 260 ng/mL High Less Than 230 18 Magnesium 1.9 mg/dL N 1.9-2.7 19 TSH (Thyroid Stim Horm) 1.06 mcIU/mL N 0.34-5.60 20 Urine Culture And 11/07/2017 [facility] Urine SEE RESULT [address] [place] [address] [phone] Inr/Protime 11/07/2017 [facility] Inr 1.05 High 0.77- [address] 1.02 [place] [address] [phone] CBC Auto Diff 11/07/2017 [facility] White Blood 11.8 High 3.5- [address] Count 10^3/uL 0.8 [place] [address] [phone] Red Blood Count 3.85 10^6/uL Low 4.0-5.4 Hemoglobin 11.6 g/dL Low 12.0-16.0 Hematocrit 36 % N 35-47 Mean Corpuscular Volume 93 fL N 80-97 Mean Corpuscular Hemoglobin 30 pg N 27-31 Mean Corpuscular HGB Conc 33 g/dL N 31-36 Red Cell Distribution Width 15 % N 10.5-15 Platelet Count 144 10^3/uL Low 150-450 Mean Platelet Volume 9.4 um3 N 7.4-10.4 Abs Neutrophils 9.3 10^3/uL High 1.5-7.7 Abs Lymphocytes 1.6 10^3/uL N 1.0-4.8 Abs Monocytes 0.8 10^3/uL N 0-0.8 Abs Eosinophils 0 10^3/uL N 0-0.6 Abs Basophils 0.1 10^3/uL N 0-0.2 Abs Nucleated RBC 0 10^3/uL Granulocyte % 78.6 % N 38-83 Lymphocyte % 13.5 % Low 25-47 Monocyte % 6.8 % N 0-7 Eosinophil % 0.4 % N 0-6 Basophil % 0.7 % N 0-2 Nucleated Red Blood Cells % 0 Laboratory test 11/07/2017 [facility] Lactic Acid 0.7 mmol/L N 0.5-2.0 22 finding [address] [place] [address] [phone] B-Type Natriuretic Peptide BNP 206 pg/mL High 23 Comp Metabolic Panel 11/07/2017 [facility] Sodium 142 mmol/L N 139-145 [address] [place] [address] [phone] Potassium 3.8 mmol/L N 3.5-5.0 Chloride 111 mmol/L N 101-111 Co2 Carbon Dioxide 23 mmol/L N 22-32 Anion Gap 8 mmol/L N 2-11 Glucose 129 mg/dL High 70-100 Blood Urea Nitrogen 29 mg/dL High 6-24 Creatinine 0.96 mg/dL High 0.51-0.95 BUN/Creatinine Ratio 30.2 High 8-20 Calcium 8.8 mg/dL N 8.6-10.3 Total Protein 5.8 g/dL Low 6.4-8.9 Albumin 3.2 g/dL N 3.2-5.2 Globulin 2.6 g/dL N 2-4 Albumin/Globulin Ratio 1.2 N 1-3 Total Bilirubin 0.30 mg/dL N 0.2-1.0 Alkaline Phosphatase 104 U/L N 34-104 Alt 24 U/L N 7-52 Ast 18 U/L N 13-39 Egfr Non- 57.3 >60 Egfr 73.7 >60 24 Laboratory test 11/07/2017 [facility] Magnesium 2.0 mg/dL N 1.9-2.7 finding [address] [place] [address] [phone] C Reactive Protein 17.70 mg/L High < 5.00 25 Troponin-I (TnI) 0.16 ng/mL High <0.04 26 TSH (Thyroid Stim Horm) 0.91 mcIU/mL N 0.34-5.60 Urinalysis Profile 11/07/2017 [facility] Urine Color Ilana [address] [place] [address] [phone] Urine Appearance Turbid Urine Specific [place] 1.021 N 1.010-1.030 Urine pH 7.0 N 5-9 Urine Urobilinogen Negative Negative Urine Ketones Negative Negative Urine Protein 2+(100 mg/dL) Abnormal Negative Urine Leukocytes 3+ Abnormal Negative Urine Blood Negative Negative * * Abnormal Negative 27 Urine Nitrite Negative Negative Urine Bilirubin Negative Negative Urine Glucose Negative Negative Urine White Blood Cell 3+(>20/hpf) Abnormal Absent Urine Red Blood Cell Trace(0-2/hpf) Absent Urine Bacteria 1+ Abnormal Absent Urine Squamous Epithelial Cell Present Abnormal Absent Urine Transitional Epithelial Present Abnormal Absent Urine Hyaline Casts Present Abnormal Absent Urine Triple Phosphate Cryst Present Abnormal Absent Urine Calcium Oxalate Cryst Present Abnormal Absent CBC Auto 09/23/2017 [facility] White Blood 14.3 10^3/uL High 3.5-10.[address] [place] [address] [phone] Red Blood Count 3.90 10^6/uL Low 4.0-5.4 Hemoglobin 12.1 g/dL N 12.0-16.0 Hematocrit 36 % N 35-47 Mean Corpuscular Volume 93 fL N 80-97 Mean Corpuscular Hemoglobin 31 pg N 27-31 Mean Corpuscular HGB Conc 34 g/dL N 31-36 Red Cell Distribution Width 15 % N 10.5-15 Platelet Count 153 10^3/uL N 150-450 Mean Platelet Volume 8.8 um3 N 7.4-10.4 Abs Neutrophils 11.5 10^3/uL High 1.5-7.7 Abs Lymphocytes 1.8 10^3/uL N 1.0-4.8 Abs Monocytes 0.9 10^3/uL High 0-0.8 Abs Eosinophils 0.1 10^3/uL N 0-0.6 Abs Basophils 0 10^3/uL N 0-0.2 Abs Nucleated RBC 0 10^3/uL Granulocyte % 79.9 % N 38-83 Lymphocyte % 12.5 % Low 25-47 Monocyte % 6.6 % N 0-7 Eosinophil % 0.7 % N 0-6 Basophil % 0.3 % N 0-2 Nucleated Red Blood Cells % 0 Laboratory test 09/23/2017 [facility] Lactic Acid 0.6 mmol/L N 0.5-2.0 [address] [place] [address] [phone] Inr/Protime 09/23/2017 [facility] Inr 0.90 N 0.77-1.02 [place] [address] [phone] Laboratory test 09/23/2017 [facility] Partial 27.0 N 26.0- 36.[address] [address] PTT [phone] Comp Metabolic 09/23/2017 [facility] Sodium 136 mmol/L Low 139 -145 [place] [address] [phone] Potassium 4.3 mmol/L N 3.5-5.0 Chloride 102 mmol/L N 101-111 Co2 Carbon Dioxide 26 mmol/L N 22-32 Anion Gap 8 mmol/L N 2-11 Glucose 107 mg/dL High 70-100 Blood Urea Nitrogen 39 mg/dL High 6-24 Creatinine 1.76 mg/dL High 0.51-0.95 BUN/Creatinine Ratio 22.2 High 8-20 Calcium 9.2 mg/dL N 8.6-10.3 Total Protein 6.4 g/dL N 6.4-8.9 Albumin 3.6 g/dL N 3.2-5.2 Globulin 2.8 g/dL N 2-4 Albumin/Globulin Ratio 1.3 N 1-3 Total Bilirubin 0.30 mg/dL N 0.2-1.0 Alkaline Phosphatase 107 U/L High 34-104 Alt 15 U/L N 7-52 Ast 18 U/L N 13-39 Egfr Non- 28.5 >60 Egfr 36.7 >60 29 Laboratory test 09/23/2017 [facility] Magnesium 3.0 mg/dL High 1.9-2.7 [place] [address] [phone] Lipase 27 U/L N 11.0-82.0 C Reactive Protein 26.57 mg/L High < 5.00 30 Troponin-I (TnI) 0.09 ng/mL High <0.04 31 TSH (Thyroid Stim Horm) 2.02 mcIU/mL N 0.34-5.60 Type & Screen 09/23/2017 [facility] Patient [place] [address] [phone] Antibody Screen NEGATIVE CBC Auto 03/03/2017 [facility] White Blood 11.3 10^3/uL High 3.5-10.[address] [place] [address] [phone] Red Blood Count 4.44 10^6/uL N 4.0-5.4 Hemoglobin 13.2 g/dL N 12.0-16.0 Hematocrit 41 % N 35-47 Mean Corpuscular Volume 92 fL N 80-97 Mean Corpuscular Hemoglobin 30 pg N 27-31 Mean Corpuscular HGB Conc 32 g/dL N 31-36 Red Cell Distribution Width 16 % High 10.5-15 Platelet Count 170 10^3/uL N 150-450 Mean Platelet Volume 11 um3 High 7.4-10.4 Abs Neutrophils 7.9 10^3/uL High 1.5-7.7 Abs Lymphocytes 2.4 10^3/uL N 1.0-4.8 Abs Monocytes 0.9 10^3/uL High 0-0.8 Abs Eosinophils 0.2 10^3/uL N 0-0.6 Abs Basophils 0 10^3/uL N 0-0.2 Abs Nucleated RBC 0.01 10^3/uL N Granulocyte % 69.5 % N 38-83 Lymphocyte % 21.0 % Low 25-47 Monocyte % 7.8 % N 1-9 Eosinophil % 1.3 % N 0-6 Basophil % 0.4 % N 0-2 Nucleated Red Blood Cells % 0.1 N Lipid Panel - 03/03/2017 [facility] Creatine 61 U/L N 10-[address] Kinase(CK) [place] [address] [phone] Comp Metabolic 03/03/2017 [facility] Sodium 141 N 133-[address] mmol/[place] [address] [phone] Potassium 3.9 mmol/L N 3.5-5.0 Chloride 107 mmol/L N 101-111 Co2 Carbon Dioxide 29 mmol/L N 22-32 Anion Gap 5 mmol/L N 2-11 Glucose 101 mg/dL High 70-100 Blood Urea Nitrogen 23 mg/dL N 6-24 Creatinine 1.00 mg/dL High 0.51-0.95 BUN/Creatinine Ratio 23.0 High 8-20 Calcium 9.4 mg/dL N 8.6-10.3 Total Protein 6.3 g/dL Low 6.4-8.9 Albumin 3.7 g/dL N 3.2-5.2 Globulin 2.6 g/dL N 2-4 Albumin/Globulin Ratio 1.4 N 1-3 Total Bilirubin 0.40 mg/dL N 0.2-1.0 Alkaline Phosphatase 99 U/L N 34-104 Alt 13 U/L N 7-52 Ast 16 U/L N 13-39 Egfr Non- 54.8 N >60 Egfr 70.5 N >60 32 Lipid Profile 03/03/2017 [facility] Triglycerides 90 mg/dL N 33 (Trig/Chol/HDL) [address] [place] [address] [phone] Cholesterol 181 mg/dL N 34 HDL Cholesterol 73.3 mg/dL N 35 LDL Cholesterol 90 mg/dL N 36 Laboratory test 03/03/2017 [facility] TSH (Thyroid 2.36 N 0.34 -5.[address] Stim Horm) mcIU/[place] [address] [phone] Iron & Iron 03/03/2017 [facility] Iron 34 g/dL Low 50-[address] [place] [address] [phone] Unsaturated Iron Binding 277 g/dL N Total Iron Binding Capacity 311 g/dL N 250-450 % Iron Saturation 11 % Low 15-55 Laboratory test 03/03/2017 [facility] B-Type 259 pg/mL High [address] [place] [address] Peptide BNP [phone] Inr/Protime 03/03/2017 [facility] Inr 0.88 Low 0.89- [address] 1.11 [place] [address] [phone] Protime W/ Inr 12/17/2016 [employer] Prothrombin Time 20.7 Inr 1.7 Protime W/ Inr 12/10/2016 [employer] In House Prothrombin Time 19.8 Inr 1.7 Protime W/ Inr 11/26/2016 [employer] In House Prothrombin Time 23.9 Inr 2.0 Protime W/ Inr 11/19/2016 [employer] In House Prothrombin Time 34.9 Inr 2.9 Inr/Protime 11/13/2016 [facility] Inr 3.22 High 0.89-1.[address] [place] [address] [phone] Basic Metabolic 11/10/2016 [facility] Sodium 137 mmol/L N 133- [address] [place] [address] [phone] Potassium 4.4 mmol/L N 3.5-5.0 Chloride 105 mmol/L N 101-111 Co2 Carbon Dioxide 25 mmol/L N 22-32 Anion Gap 7 mmol/L N 2-11 Glucose 85 mg/dL N 70-100 Blood Urea Nitrogen 12 mg/dL N 6-24 Creatinine 0.88 mg/dL N 0.51-0.95 BUN/Creatinine Ratio 13.6 N 8-20 Calcium 9.4 mg/dL N 8.6-10.3 Egfr Non- 63.5 N >60 Egfr 81.7 N >60 38 CBC Auto Diff 11/10/2016 [facility] White Blood 9.7 10^3/uL N 3.5-10.[address] [place] [address] [phone] Red Blood Count 4.27 10^6/uL N 4.0-5.4 Hemoglobin 12.3 g/dL N 12.0-16.0 Hematocrit 39 % N 35-47 Mean Corpuscular Volume 91 fL N 80-97 Mean Corpuscular Hemoglobin 29 pg N 27-31 Mean Corpuscular HGB Conc 32 g/dL N 31-36 Red Cell Distribution Width 16 % High 10.5-15 Platelet Count 222 10^3/uL N 150-450 Mean Platelet Volume 9 um3 N 7.4-10.4 Abs Neutrophils 6.5 10^3/uL N 1.5-7.7 Abs Lymphocytes 2.3 10^3/uL N 1.0-4.8 Abs Monocytes 0.6 10^3/uL N 0-0.8 Abs Eosinophils 0.3 10^3/uL N 0-0.6 Abs Basophils 0.1 10^3/uL N 0-0.2 Abs Nucleated RBC 0 10^3/uL N Granulocyte % 67.0 % N 38-83 Lymphocyte % 23.8 % Low 25-47 Monocyte % 5.7 % N 1-9 Eosinophil % 2.8 % N 0-6 Basophil % 0.7 % N 0-2 Nucleated Red Blood Cells % 0 N Iron & Iron Binding 11/10/2016 [facility] Iron 96 g/dL N 50- [address] [place] [address] [phone] Unsaturated Iron Binding 157 g/dL N Total Iron Binding Capacity 253 g/dL N 250-450 % Iron Saturation 38 % N 15-55 Laboratory 11/10/2016 [facility] Magnesium 1.9 mg/dL N 1.9- 2.7 39 test finding [address] [place] [address] [phone] Laboratory 11/10/2016 [facility] B-Type 262 pg/mL High 40 test finding [address] [place] [address] Peptide BNP [phone] Inr/Protime 11/10/2016 [facility] Inr 2.51 High 0.89-1.11 [address] [place] [address] [phone] Inr/Protime 11/06/2016 [facility] Inr 1.40 High 0.89-1.11 [address] [place] [address] [phone] Inr/Protime 10/30/2016 [facility] Inr 1.48 High 0.89-1.11 [address] [place], [place] [address] [phone] Protime W/ Inr 10/27/2016 Other [employer]endering Inr 2.7 Protime W/ Inr 2016 Other Rendering Inr 1.5 Protime W/ Inr 10/20/2016 Other Rendering Inr 1.2 Iron & Iron 10/16/2016 [facility] Iron 28 g/dL Low 50-[address] [place] [address] [phone] Unsaturated Iron Binding 252 g/dL N Total Iron Binding Capacity 280 g/dL N 250-450 % Iron Saturation 10 % Low 15-55 CBC Auto 10/16/2016 [facility] White Blood 11.4 10^3/uL High 3.5-10.[address] [place] [address] [phone] Red Blood Count 3.67 10^6/uL Low 4.0-5.4 Hemoglobin 10.8 g/dL Low 12.0-16.0 Hematocrit 34 % Low 35-47 Mean Corpuscular Volume 92 fL N 80-97 Mean Corpuscular Hemoglobin 30 pg N 27-31 Mean Corpuscular HGB Conc 32 g/dL N 31-36 Red Cell Distribution Width 16 % High 10.5-15 Platelet Count 176 10^3/uL N 150-450 Mean Platelet Volume 9 um3 N 7.4-10.4 Abs Neutrophils 7.4 10^3/uL N 1.5-7.7 Abs Lymphocytes 2.8 10^3/uL N 1.0-4.8 Abs Monocytes 0.9 10^3/uL High 0-0.8 Abs Eosinophils 0.3 10^3/uL N 0-0.6 Abs Basophils 0.1 10^3/uL N 0-0.2 Abs Nucleated RBC 0 10^3/uL N Granulocyte % 64.6 % N 38-83 Lymphocyte % 24.8 % Low 25-47 Monocyte % 7.4 % N 1-9 Eosinophil % 2.6 % N 0-6 Basophil % 0.6 % N 0-2 Nucleated Red Blood Cells % 0 N Inr/Protime 10/16/2016 [facility] Inr 1.44 High 0.89-1.[address] [place] [address] [phone] Protime W/ Inr 10/16/2016 [employer] Inr 1.5 Laboratory test 10/16/2016 [facility] B-Type 370 High [address] Natriuretic pg/[place] [address] Peptide BNP [phone] Magnesium 2.1 mg/dL N 1.9-2.7 Basic Metabolic Panel 10/16/2016 [facility] Sodium 139 mmol/L N 133-[address] [place] [address] [phone] Potassium 5.0 mmol/L N 3.5-5.0 Chloride 107 mmol/L N 101-111 Co2 Carbon Dioxide 22 mmol/L N 22-32 Anion Gap 10 mmol/L N 2-11 Glucose 75 mg/dL N 70-100 Blood Urea Nitrogen 31 mg/dL High 6-24 Creatinine 1.26 mg/dL High 0.51-0.95 BUN/Creatinine Ratio 24.6 High 8-20 Calcium 9.3 mg/dL N 8.6-10.3 Egfr Non- 42.1 N >60 Egfr 54.1 N >60 42 CBC Auto 10/07/2016 [facility] White Blood 11.7 10^3/uL High 3.5-10.[address] [place] [address] [phone] Red Blood Count 3.67 10^6/uL Low 4.0-5.4 Hemoglobin 10.8 g/dL Low 12.0-16.0 Hematocrit 34 % Low 35-47 Mean Corpuscular Volume 93 fL N 80-97 Mean Corpuscular Hemoglobin 29 pg N 27-31 Mean Corpuscular HGB Conc 32 g/dL N 31-36 Red Cell Distribution Width 16 % High 10.5-15 Platelet Count 258 10^3/uL N 150-450 Mean Platelet Volume 10 um3 N 7.4-10.4 Abs Neutrophils 8.6 10^3/uL High 1.5-7.7 Abs Lymphocytes 2.2 10^3/uL N 1.0-4.8 Abs Monocytes 0.7 10^3/uL N 0-0.8 Abs Eosinophils 0.1 10^3/uL N 0-0.6 Abs Basophils 0.1 10^3/uL N 0-0.2 Abs Nucleated RBC 0.01 10^3/uL N Granulocyte % 73.6 % N 38-83 Lymphocyte % 18.8 % Low 25-47 Monocyte % 6.0 % N 1-9 Eosinophil % 1.1 % N 0-6 Basophil % 0.5 % N 0-2 Nucleated Red Blood Cells % 0.1 N Basic Metabolic Panel 10/07/2016 [facility] Sodium 138 mmol/L N 133-[address] [place] [address] [phone] Potassium 4.7 mmol/L N 3.5-5.0 Chloride 106 mmol/L N 101-111 Co2 Carbon Dioxide 25 mmol/L N 22-32 Anion Gap 7 mmol/L N 2-11 Glucose 104 mg/dL High 70-100 Blood Urea Nitrogen 14 mg/dL N 6-24 Creatinine 0.95 mg/dL N 0.51-0.95 BUN/Creatinine Ratio 14.7 N 8-20 Calcium 9.5 mg/dL N 8.6-10.3 Egfr Non- 58.3 N >60 Egfr 75.0 N >60 43 Protime W/ Inr 10/07/2016 [employer] In House Prothrombin Time 12.0 Inr 1.0 Laboratory test 09/22/2016 [facility] Troponin-I 0.90 High < 0.[address] (TnI) ng/mL [place], [place] [id number] [phone] Arterial Blood 09/05/2016 [facility] PH Arterial 7.34 Low 7.35 -7.45 [address] [place] [address] [phone] Pco2 Arterial 43 mmHg N 35-45 Po2 Arterial 63 mmHg Low 80-100 O2 Saturation Arterial 89.4 % Low 95-98 Base Excess Arterial -2.6 Low -2.0-2.0 46 Hco3 Arterial 22.7 mmol/L N 19-31 Venous Blood 09/05/2016 [facility] Venous Blood 7.32 Low 7.33- 7.43 [address] [place], [place] [id number] [phone] Venous Pco2 47 mmHg N 41-51 Venous Po2 37 mmHg N 35-45 Venous O2 Saturation 70.6 % N 70-80 Venous Blood Base Excess -2.1 Low 0-4 48 Venous Bicarbonate Hco3 22.6 mmol/L Low 24-28 Venous Blood 09/05/2016 [facility] Venous Blood 7.32 Low 7.33- 7.43 [address] [place] [address] [phone] Venous Pco2 48 mmHg N 41-51 Venous Po2 35 mmHg N 35-45 Venous O2 Saturation 65.7 % Low 70-80 Venous Blood Base Excess -1.7 Low 0-4 50 Venous Bicarbonate Hco3 22.8 mmol/L Low 24-28 Venous Blood 09/05/2016 [facility] Venous Blood 7.32 Low 7.33- 7.43 [address] [place] [address] [phone] Venous Pco2 46 mmHg N 41-51 Venous Po2 34 mmHg Low 35-45 Venous O2 Saturation 65.7 % Low 70-80 Venous Blood Base Excess -2.5 Low 0-4 52 Venous Bicarbonate Hco3 22.2 mmol/L Low 24-28 Cath Panel 09/02/2016 [facility] Partial 30.7 seconds N 26.0- 36.[address] [place] [address] PTT [phone] CBC Auto 09/02/2016 [facility] White Blood 12.1 10^3/uL High 3.5-10.[address] [place] [address] [phone] Red Blood Count 4.47 10^6/uL N 4.0-5.4 Hemoglobin 13.3 g/dL N 12.0-16.0 Hematocrit 41 % N 35-47 Mean Corpuscular Volume 92 fL N 80-97 Mean Corpuscular Hemoglobin 30 pg N 27-31 Mean Corpuscular HGB Conc 33 g/dL N 31-36 Red Cell Distribution Width 14 % N 10.5-15 Platelet Count 231 10^3/uL N 150-450 Mean Platelet Volume 9 um3 N 7.4-10.4 Abs Neutrophils 8.0 10^3/uL High 1.5-7.7 Abs Lymphocytes 3.3 10^3/uL N 1.0-4.8 Abs Monocytes 0.7 10^3/uL N 0-0.8 Abs Eosinophils 0.1 10^3/uL N 0-0.6 Abs Basophils 0.1 10^3/uL N 0-0.2 Abs Nucleated RBC 0.02 10^3/uL N Granulocyte % 65.9 % N 38-83 Lymphocyte % 26.9 % N 25-47 Monocyte % 5.9 % N 1-9 Eosinophil % 0.7 % N 0-6 Basophil % 0.6 % N 0-2 Nucleated Red Blood Cells % 0.2 N Inr/Protime 09/02/2016 [facility] Inr 0.86 Low 0.89-1.[address] [place] [address] [phone] Basic Metabolic 09/02/2016 [facility] Sodium 133 mmol/L N 133- [address] [place] [address] [phone] Potassium 4.7 mmol/L N 3.5-5.0 Chloride 103 mmol/L N 101-111 Co2 Carbon Dioxide 26 mmol/L N 22-32 Anion Gap 4 mmol/L N 2-11 Glucose 96 mg/dL N 70-100 Blood Urea Nitrogen 20 mg/dL N 6-24 Creatinine 1.11 mg/dL High 0.51-0.95 BUN/Creatinine Ratio 18.0 N 8-20 Calcium 9.1 mg/dL N 8.6-10.3 Egfr Non- 48.7 N >60 Egfr 62.7 N >60 53 Order 03/05/2016 [facility] EKG <pending> [address] [place] [address] [phone] Iron & Iron Binding 08/24/2015 [facility] Iron 92 g/dL N 50- 212 Capacity [address] [place] [address] [phone] Unsaturated Iron Binding 240 g/dL N Total Iron Binding Capacity 332 g/dL N 250-450 % Iron Saturation 28 % N 15-55 Vitamin B12 And 08/24/2015 [facility] Vitamin B12 628 pg/mL N 180-914 54 Folate Serum [address] [place] [address] [phone] Folic Acid (Folate) > 20.00 ng/mL N >3.99 CBC Auto Diff 08/10/2015 [facility] White Blood 9.9 10^3/uL N 3.5-10.8 101 [facility] [place] [address] [phone] Red Blood Count 3.99 10^6/uL Low 4.0-5.4 Hemoglobin 13.0 g/dL N 12.0-16.0 Hematocrit 40 % N 35-47 Mean Corpuscular Volume 100 fL High 80-97 Mean Corpuscular Hemoglobin 33 pg High 27-31 Mean Corpuscular HGB Conc 33 g/dL N 31-36 Red Cell Distribution Width 15 % N 10.5-15 Platelet Count 254 10^3/uL N 150-450 Mean Platelet Volume 9 um3 N 7.4-10.4 Abs Neutrophils 6.0 10^3/uL N 1.5-7.7 Abs Lymphocytes 3.2 10^3/uL N 1.0-4.8 Abs Monocytes 0.6 10^3/uL N 0-0.8 Abs Eosinophils 0.1 10^3/uL N 0-0.6 Abs Basophils 0.1 10^3/uL N 0-0.2 Abs Nucleated RBC 0 10^3/uL N Granulocyte % 60.4 % N 38-83 Lymphocyte % 32.1 % N 25-47 Monocyte % 5.6 % N 1-9 Eosinophil % 1.3 % N 0-6 Basophil % 0.6 % N 0-2 Nucleated Red Blood Cells % 0 N Comp Metabolic Panel 08/10/2015 [facility] Sodium 141 mmol/L N 133-145 [address] [place] [address] [phone] Potassium 4.7 mmol/L N 3.5-5.0 Chloride 111 mmol/L N 101-111 Co2 Carbon Dioxide 25 mmol/L N 22-32 Anion Gap 5 mmol/L N 2-11 Glucose 97 mg/dL N 70-100 Blood Urea Nitrogen 16 mg/dL N 6-24 Creatinine 1.08 mg/dL High 0.51-0.95 BUN/Creatinine Ratio 14.8 N 8-20 Calcium 9.0 mg/dL N 8.6-10.3 Total Protein 6.1 g/dL Low 6.4-8.9 Albumin 3.7 g/dL N 3.2-5.2 Globulin 2.4 g/dL N 2-4 Albumin/Globulin Ratio 1.5 N 1-3 Total Bilirubin 0.30 mg/dL N 0.2-1.0 Alkaline Phosphatase 66 U/L N 34-104 Alt 16 U/L N 7-52 Ast 15 U/L N 13-39 Egfr Non- 50.5 N >60 Egfr 64.9 N >60 55 Lipid Profile 08/10/2015 [facility] Triglycerides 80 mg/dL N 56 (Trig/Chol/HDL) [address] [place] [address] [phone] Cholesterol 190 mg/dL N 57 HDL Cholesterol 81.4 mg/dL N 58 LDL Cholesterol 93 mg/dL N 59 Laboratory test 08/10/2015 [facility] Magnesium 2.1 mg/dL N 1.9-2.7 finding [address] [place] [address] [phone] Creatine Kinase(CK) 43 U/L N 10-223 TSH (Thyroid Stim Horm) 0.92 ?IU/mL N 0.34-5.60 Basic Metabolic 03/20/2015 [facility] Sodium 132 mmol/L Low 133-145 Panel [address] [place] [address] [phone] Potassium 4.6 mmol/L N 3.5-5.0 Chloride 103 mmol/L N 101-111 Co2 Carbon Dioxide 23 mmol/L N 22-32 Anion Gap 6 mmol/L N 2-11 Glucose 78 mg/dL N 70-100 Blood Urea Nitrogen 20 mg/dL N 6-24 Creatinine 1.12 mg/dL High 0.51-0.95 BUN/Creatinine Ratio 17.9 N 8-20 Calcium 8.9 mg/dL N 8.6-10.3 Egfr Non- 48.4 N >60 Egfr 62.2 N >60 60 CBC No Diff 03/20/2015 [facility] White Blood 8.8 10^3/uL N 4.8-10.[address] [place] [address] [phone] Red Blood Count 4.26 10^6/uL N 4.0-5.4 Hemoglobin 13.3 g/dL N 12.0-16.0 Hematocrit 42 % N 35-47 Mean Corpuscular Volume 98 fL High 80-97 Mean Corpuscular Hemoglobin 31 pg N 27-31 Mean Corpuscular HGB Conc 32 g/dL N 31-36 Red Cell Distribution Width 14 % N 10.5-15 Platelet Count 229 10^3/uL N 150-450 Mean Platelet Volume 9 um3 N 7.4-10.4 Lipid Profile 11/03/2014 [facility] Triglycerides 101 mg/dL N 61 (Trig/Chol/HDL) [address] [place] [address] [phone] Cholesterol 155 mg/dL N 62 HDL Cholesterol 64.2 mg/dL N 63 LDL Cholesterol 71 mg/dL N 64 Comp Metabolic Panel 11/03/2014 [facility] Sodium 138 mmol/L N 133-[address] [place] [address] [phone] Potassium 4.4 mmol/L N 3.5-5.0 Chloride 107 mmol/L N 101-111 Co2 Carbon Dioxide 26 mmol/L N 22-32 Anion Gap 5 mmol/L N 2-11 Glucose 103 mg/dL High 70-100 Blood Urea Nitrogen 15 mg/dL N 6-24 Creatinine 0.90 mg/dL N 0.51-0.95 BUN/Creatinine Ratio 16.7 N 8-20 Calcium 8.6 mg/dL N 8.6-10.3 Total Protein 5.9 g/dL Low 6.4-8.9 Albumin 3.7 g/dL N 3.2-5.2 Globulin 2.2 g/dL N 2-4 Albumin/Globulin Ratio 1.7 N 1-3 Total Bilirubin 0.30 mg/dL N 0.2-1.0 Alkaline Phosphatase 99 U/L N 34-104 Alt 14 U/L N 7-52 Ast 14 U/L N 13-39 Egfr Non- 62.3 N >60 Egfr 80.1 N >60 65 Lipid Panel 11/03/2014 [facility] Creatine 55 U/L N 10-223 66 - J[facility] [address] Kinase(CK) [place] [address] [phone] CBC Auto 11/03/2014 [facility] White Blood 13.2 High 4.8-10.[address] Count 10^3/[place] [address] [phone] Red Blood Count 4.01 10^6/uL N 4.0-5.4 Hemoglobin 13.2 g/dL N 12.0-16.0 Hematocrit 39 % N 35-47 Mean Corpuscular Volume 97 fL N 80-97 Mean Corpuscular Hemoglobin 33 pg High 27-31 Mean Corpuscular HGB Conc 34 g/dL N 31-36 Red Cell Distribution Width 14 % N 10.5-15 Platelet Count 284 10^3/uL N 150-450 Mean Platelet Volume 9 um3 N 7.4-10.4 Abs Neutrophils 9.3 10^3/uL High 1.5-7.7 Abs Lymphocytes 2.8 10^3/uL N 1.0-4.8 Abs Monocytes 0.8 10^3/uL N 0-0.8 Abs Eosinophils 0.4 10^3/uL N 0-0.6 Abs Basophils 0.1 10^3/uL N 0-0.2 Abs Nucleated RBC 0.01 10^3/uL N Granulocyte % 70.0 % N 38-83 Lymphocyte % 20.8 % Low 25-47 Monocyte % 5.8 % N 1-9 Eosinophil % 3.0 % N 0-6 Basophil % 0.4 % N 0-2 Nucleated Red Blood Cells % 0.1 N Lipid Profile 03/22/2013 [facility] Triglycerides 98 mg/dL 40 -200 (Trig/Chol/HDL) [address] [place] [address] [phone] Cholesterol 193 mg/dL Less than 200 HDL Cholesterol 84 mg/dL High 40-60 67 Cholesterol/HDL Ratio 2.3 Average 1-4.44 LDL Cholesterol 92.4 Less Than 100 68 Comp Metabolic Panel 03/22/2013 [facility] Sodium 137 mmol/L 133-145 [address] [place] [address] [phone] Potassium 4.4 mmol/L 3.5-5.0 Chloride 103 mmol/L [...] Egfr Non- 55.5 >60 Egfr 71.3 >60 69 Laboratory 03/22/2013 [facility] Hepatitis C Nonreactive Nonreactive test finding 101 [facility] [place] [address] [phone] CBC Auto Diff 03/22/2013 [facility] White Blood 13.2 10^3/uL High 4.8-10.8 101 [facility] [place] [address] [phone] Red Blood Count 4.56 10^6/uL 4.0-5.4 Hemoglobin [...] Cells % 0.1 Laboratory test finding 01/26/2012 [facility] Ast (Sgot) 17 U/L 12-[address] [place] [address] [phone] Alt (SGPT) 16 U/L 14-54 Lipid Profile 01/26/2012 [facility] Triglyceride 95 mg/dL 40- 200 (Trig/Chol/HDL) [address] [place] [address] [phone] Cholesterol 189 mg/dL Less Than 200 70 High Density Lipoprotein 70 mg/dL High 40-60 71 Cholesterol/HDL Ratio 2.70 AVERAGE 1-4.44 Low Density Lipoprotein 100 mg/dL Less Than 100 72 Manual Differential 10/27/2011 [facility] Polysegmented 79 % 38-[address] [address] [phone] Lymphocyte 16 % Low 25-47 Monocyte 5 % 0-13 Absolute Neutrophil Count 9.70 Anisocytosis SLIGHT CBC Auto Diff 10/27/2011 [facility] White Blood 12.3 CUMM High 4.8-10.[address] [place] [address] [phone] Red Cell Count 4.14 CUMM Low 4.2-5.4 Hemoglobin 14.5 g/dL 12.0-16.0 Hematocrit 41 % 35-47 Mean Corpuscular Volume 100 um3 High 79-97 Mean Corpuscular Hemoglob 35 pg High 27-31 Mean Corpuscular HGB Cone 35 g/dL 32-36 Redcell Distribution WDTH 15 % 10.5-15 Platelet Count 303 CUMM 150-450 Mean Platelet Volume 8.9 um3 7.4-10.4 73 Lipid Profile 10/27/2011 [facility] Triglyceride 155 mg/dL 40 -200 (Trig/Chol/HDL) [address] [place] [address] [phone] Cholesterol 272 mg/dL High Less Than 200 74 High Density Lipoprotein 62 mg/dL High 40-60 75 Cholesterol/HDL Ratio 4.39 AVERAGE 1-4.44 Low Density Lipoprotein 179 mg/dL High Less Than 100 76 Comp Metabolic Panel 10/27/2011 [facility] Sodium 135 mmol/L 135-145 [address] [place] [address] [phone] Potassium 4.7 mmol/L 3.5-5.0 Chloride 107 mmol/L 101-111 Co2 (Carbon Dioxide) 23.0 mmol/L 22-32 Anion Gap 5.0 mmol/L 2-11 77 Glucose 101 mg/dL High 70-100 BUN 12 mg/dL 6-24 Creatinine 1.1 mg/dL 0.50-1.40 One Over Creatinine 0.90 BUN/Creatinine Ratio 10.9 8-20 Calcium 9.0 mg/dL 8.1-9.9 Total Protein 6.0 GM/DL Low 6.2-8.1 Albumin 3.6 GM/DL 3.2-5.2 Globulin 2.4 GM/DL 2-4 Albumin/Globulin Ratio 1.5 1-3 Bilirubin Total 0.5 mg/dL 0.4-1.5 78 Alkaline Phosphatase 95 U/L 30-110 Alt (SGPT) 19 U/L 14-54 Ast (Sgot) 18 U/L 12-42 eGFR Non- 49.8 > 60 eGFR 64.1 > [address] Batres's Lab 10/27/2011 [facility] TSH 0.97 MIU/ML 0.34- 5.60 Panel [address] [place] [address] [phone] Urinalysis 07/31/2011 [facility] Ua Color YELLOW Yellow W/Microscopic [address] [place] [address] [phone] Appearance-Urine TURBID Clear Specific [place]-Ur 1.018 1.010-1.030 Esterase-Urine 3+ Abnormal Negative Nitrite NEGATIVE Negative [id number] NEGATIVE Negative Protein-Urine TRACE Abnormal Negative PH-Urine 6.0 5-9 Blood-Urine 1+ Abnormal Negative Ketones-Urine NEGATIVE Negative Bilirubin-Ur NEGATIVE Negative Glucose-Urine NEGATIVE Negative RBC-Urine 0-3 0-2 Epith Cells-Ur MODERATE None WBC-Urine TNTC Abnormal 0-5 Bacteria-Urine 3+ None Urine Culture 07/31/2011 [facility] M [address] & [address] <SEE NOTE> [place] [address] [phone] CBC With 01/24/2010 [facility] White 11.1 CUMM High 4.8- 81 Manual Diff [address] Blood 10.8 [place] [address] Count [phone] Red Cell Count 3.72 CUMM Low 4.2-5.4 Hemoglobin 12.1 g/dL 12.0-16.0 Hematocrit 36 % 35-47 Mean Corpuscular Volume 96 um3 79-97 Mean Corpuscular Hemoglob 33 pg High 27-31 Mean Corpuscular HGB Cone 34 g/dL 32-36 Redcell Distribution WDTH 13 % 10.5-15 Platelet Count 363 CUMM 150-450 Mean Platelet Volume 7.1 um3 Low 7.4-10.4 Polysegmented Neutrophil 67 % 38-83 Lymphocyte 22 % Low 25-47 Monocyte 4 % 0-13 Basophil 1 % 0-2 Atypical Lymph 6 % 0-6 Absolute Neutrophil Count 7.4 Anisocytosis SLIGHT Toxic Granulation SLIGHT Basic Metabolic Panel 01/24/2010 [facility] Sodium 136 mmol/L 135-[address] [place] [address] [phone] Potassium 4.8 mmol/L 3.5-5.0 Chloride 105 mmol/L 101-111 Co2 (Carbon Dioxide) 24.0 mmol/L 22-32 Anion Gap 7.0 mmol/L 2-11 82 Glucose 97 mg/dL 70-100 83 BUN 12 mg/dL 6-24 Creatinine 1.10 mg/dL 0.50-1.40 One Over Creatinine 0.90 BUN/Creatinine Ratio 10.9 8-20 Calcium 9.1 mg/dL 8.1-9.9 84 eGFR Non- 53.3 > 60 eGFR 64.5 > 60 85 Urine Culture & 01/24/2010 [facility] Urine Culture ESCHERICHIA [address] [place] [address] [phone] Urinalysis 01/24/2010 [facility] Ua Color YELLOW Yellow W/Microscopic [address] [place] [address] [phone] Appearance-Urine CLEAR Clear Specific [place]-Ur 1.010 1.010-1.030 Esterase-Urine 3+ Abnormal Negative Nitrite POSITIVE Abnormal Negative Ymztioaenasi-Fb-OZK NEGATIVE Negative Protein-Urine NEGATIVE Negative PH-Urine 5.5 5-9 Blood-Urine NEGATIVE Negative Ketones-Urine NEGATIVE Negative Bilirubin-Ur NEGATIVE Negative Glucose-Urine NEGATIVE Negative WBC-Urine TNTC Abnormal 0-5 RBC-Urine NONE SEEN 0-2 Epith Cells-Ur NONE None Bacteria-Urine 3+ None Ursc-1 01/24/2010 [facility] Ampicillin <=2 S [address] [place] [address] [phone] Amikacin <=2 S Ciprofloxacin <=0.25 S Ceftriaxone <=1 S Cefazolin <=4 S Nitrofurantoin <=16 S Gentamicin <=1 S Imipenem <=1 S Levofloxacin <=0.12 S Trimeth-Sulfa <=20 S Ceftazidime <=1 S Tigecycline <=0.5 S Piperacillin/Tazobactam <=4 S Urinalysis W/Microscopic 01/17/2010 [facility] Ua Color YELLOW Yellow [address] [place] [address] [phone] Appearance-Urine CLEAR Clear Specific [place]-Ur 1.011 1.010-1.030 Esterase-Urine 2+ Abnormal Negative Nitrite NEGATIVE Negative Jhytbfbqlaru-Gl-FHK NEGATIVE Negative Protein-Urine NEGATIVE Negative PH-Urine 5.5 5-9 Blood-Urine NEGATIVE Negative Ketones-Urine NEGATIVE Negative Bilirubin-Ur NEGATIVE Negative Glucose-Urine NEGATIVE Negative WBC-Urine TNTC Abnormal 0-5 RBC-Urine 0-2 0-2 Epith Cells-Ur RARE None Bacteria-Urine TRACE None Urine Culture & 01/17/2010 [facility] Urine Culture SN2 [address] [place] [address] [phone] CBC With Manual 12/26/2009 [facility] White Blood 12.9 CUMM High 4.8-[address] Count .8 [place] [address] [phone] Red Cell Count 4.27 CUMM 4.2-5.4 Hemoglobin [...] Neutrophil Count 10.0 Anisocytosis SLIGHT Laboratory test 12/26/2009 [facility] TSH 2.29 MIU/ML 0.34- 5.[address] [place] [address] [phone] Comp Metabolic 12/26/2009 [facility] Sodium 133 mmol/L Low 135 -[address] [place] [address] [phone] Potassium 4.5 mmol/L 3.5-5.0 Chloride 102 mmol/L 101-111 Co2 (Carbon Dioxide) 24.0 mmol/L 22-32 Anion Gap 7.0 mmol/L 2-11 88 Glucose 98 mg/dL 70-100 89 BUN 13 mg/dL 6-24 Creatinine 1.50 mg/dL High 0.50-1.40 One Over Creatinine 0.60 BUN/Creatinine Ratio 8.7 8-20 Calcium 9.2 mg/dL 8.1-9.9 90 Total Protein 5.7 GM/DL Low 6.2-8.1 Albumin 3.8 GM/DL 3.2-5.2 Globulin 1.9 GM/DL Low 2-4 Albumin/Globulin Ratio 2.0 1-3 Bilirubin Total 1.0 mg/dL 0.4-1.5 91 Alkaline Phosphatase 84 U/L 30-110 Alt (SGPT) 15 U/L 14-54 Ast (Sgot) 17 U/L 12-42 eGFR Non- 37.3 > 60 eGFR 45.1 > 60 92 Drug Screen, 09/28/2009 [facility] Amphetamines NONE None Urine [address] Urine Screen [place]ECT[place] [address] [phone] Barbituates Urine Screen NONE DETECTED None Detect Cannabinoid Urine Screen NONE DETECTED None Detect Cocaine Metabolites Urine NONE DETECTED None Detect Urine Opiates NONE DETECTED 93 Urine Drug 08/28/2009 [facility] Urine Alcohol Negative mg/dL Cutoff: 30 Screen M-[address] [place] [address] [phone] Urine Ampetamines Negative ng/mL () 94 Urine Barbiturates Negative ng/mL () 95 Urine Benzodiazepines Negative ng/mL () 96 Urine Cocaine Negative ng/mL () 97 Urine Methadone Negative ng/mL () 98 Urine Opiates Reflex* ng/mL () 99 Urine Phencyclidine Negative ng/mL Cutoff: 25 Urine Propoxyphene Negative ng/mL () 100 Urine Tetrahydrocannabinol Negative ng/mL Cutoff: 20 101 Urine Opiates 08/28/2009 [facility] Urine Opiates Positive ( ) [address] [place] [address] [phone] Urine Codeine By GC/MS Negative ng/mL () 103 Urine Hydrocodone By GC/MS 596 ng/mL () 104 Urine Hydromophone By GC/MS 199 ng/mL () 105 Urine Morphine By GC/MS Negative ng/mL () 106 Urine Oxycodone By GC/MS 666 ng/mL () 107 Urine Opiates Interpretation Positive () 108 CBC With 04/18/2009 [facility] White Blood 11.4 CUMM High 4.8- 10.8 Manual Diff [address] [place] [address] [phone] Red Cell Count 4.17 CUMM Low 4.2-5.4 [...] 7.9 Anisocytosis SLIGHT Macrocytosis SLIGHT Laboratory test 04/18/2009 [facility] TSH 1.33 MIU/ML 0.34- 5.[address] [place] [address] [phone] Erythrocyte Sed Rate 14 MM/HR 0-30 Comp Metabolic Panel 04/18/2009 [facility] Sodium 131 mmol/L Low 135-[address] [place] [address] [phone] Potassium 4.3 mmol/L 3.5-5.0 Chloride 99 mmol/L Low 101-111 Co2 (Carbon Dioxide) 27.0 mmol/L 22-32 Anion Gap 5.0 mmol/L 2-11 109 Glucose 100 mg/dL 70-100 110 BUN 14 mg/dL 6-24 Creatinine 1.00 mg/dL 0.50-1.40 One Over Creatinine 1.00 BUN/Creatinine Ratio 14.0 8-20 Calcium 9.2 mg/dL 8.1-9.9 111 Total Protein 6.4 GM/DL 6.2-8.1 Albumin 3.9 GM/DL 3.2-5.2 Globulin 2.5 GM/DL 2-4 Albumin/Globulin Ratio 1.6 1-3 Bilirubin Total 0.7 mg/dL 0.4-1.5 112 Alkaline Phosphatase 77 U/L 30-110 Alt (SGPT) 21 U/L 14-54 Ast (Sgot) 22 U/L 12-42 eGFR Non- 59.7 > 60 eGFR 72.3 > 60 113 1 Because ethnic data is not always [...] (or dialysis) 2 Result TnIDx:0.04 Called to [id number] at: 22:14:20 by:[id number] Read back by: [id number] SEE RESULT BELOW Name: MARICARMEN VILLARREAL : [address]: Inder Shelby MD Acct: [id number] Unit: [id number] AGE: 72 Location: ED Re04/13/18 SEX: F Status: DEP ER SPEC: [id number] CLAUDIA: 04/14/18 [facility] DR: Inder Shelby MD REQ: [id number] RECD: 04/14/18 STATUS: LEONID LOW DR: [facility] Boo Batres III, MD _ SOURCE: URINE SPDESC: ORDERED: Urine Culture Procedure Result Reported Site Urine Culture Final 04/15/18- 1011 ML No growth of clinically significant organisms * ML - Main Lab . END OF REPORT DEPARTMENT OF PATHOLOGY, [address] [place] [address] Philip Garenr M.D. Director [facility] # [id number] 4 Because ethnic data is not always [...] 5 Kidney failure <15 (or dialysis) 5 Result TnIDx:0.04 Called to [id number] at: 10:34:03 by:[id number] Read back by: [id number] 6 >100 to <200 pg/mL: likely compensated congestive heart failure (CHF) 200 to 400 pg/mL: likely moderate CHF >400 pg/mL: likely moderate to severe CHF 7 Desirable: <150 Borderline High: 150-199 High: 200-499 Very High: >500 8 Desirable: <200 Borderline High: 200-239 High: >239 9 Low: <40 Desirable: 40-60 High: >60 10 Desirable: <100 Near Optimal: 100-129 Borderline High: 130-159 High: 160-189 Very High: >189 11 Because ethnic data is not always readily [...] 15-29 5 Kidney failure <15 (or dialysis) 12 Result TnIDx:0.04 Called to POOL at: 12:21:39 by:[id number] Read back by: [id number] 13 >100 to <200 pg/mL: likely compensated congestive heart failure (CHF) 200 to 400 pg/mL: likely moderate CHF >400 pg/mL: likely moderate to severe CHF 14 [facility] Severe Sepsis and Septic Shock Management Bundle Measure requires all lactic acids initially measuring >2.0 mmol/L be repeated. 15 Result TnIDx:0.04 Called to [id number] at: 11:01:44 by:[id number] Read back by: [id number] 16 Because ethnic data is not always [...] 5 Kidney failure <15 (or dialysis) 17 Interpretive information available on [employer] Test Catalog at [email or web address] 18 Please note: The following may produce a false positive D Dimer test: - Rheumatoid factor greater than 60 IU/ml - Plasma hemoglobin greater than 0.05 gm/dl - Bilirubin greater than 50 mg/dl - Lipids greater than 1000 mg/dl - FDP greater than 20 ug/ml 19 Result TnIDx:0.04 Called to [id number] at: 11:01:44 by:[id number] Read back by: [id number] 20 Result TnIDx:0.04 Called to [id number] at: 11:01:44 by:[id number] Read back by: [id number] 21 SEE RESULT BELOW Name: MARICARMEN VILLARREAL : [address]: Olive Miguel MD Acct: [id number] Unit: [id number] AGE: 72 Location: [place] [address] Re11/07/17 SEX: F Status: ADM IN SPEC: [id number] CLAUDIA: 11/07/[address]: Isis PrasadTERMINAL BLOCK ASSEMBLER REQ: [id number] RECD: 11/07/17 STATUS: LEONID LOW DR: Inder Batres III, MD _ SOURCE: URINE SPDESC: ORDERED: Urine Culture Procedure Result Reported Site Urine Culture Final 11/09/17- 0815 ML Organism 1 ESCHERICHIA COLI [place] Count >100,000 (Many) CFU/ML 1. ESCHERICHIA COLI [...] . END OF REPORT DEPARTMENT OF PATHOLOGY, [address] [place] [address] Philip Garner M.D. Director [facility] # [id number] 22 [facility] Severe Sepsis and Septic Shock Management Bundle Measure requires all lactic acids initially measuring >2.0 mmol/L be repeated. 23 >100 to <200 pg/mL: likely compensated congestive heart failure (CHF) 200 to 400 pg/mL: likely moderate CHF >400 pg/mL: likely moderate to severe CHF 24 Because ethnic data is not always readily [...] 15-29 5 Kidney failure <15 (or dialysis) 25 Acute inflammation: >10.00 26 Result TnIDx:0.16 Called to [id number] at: 18:03:13 by:[id number] Read back by: [id number] 27 *Ascorbic acid is present which may interfere with detection of blood. 28 [facility] Severe Sepsis and Septic Shock Management Bundle Measure requires all lactic acids initially measuring >2.0 mmol/L be repeated. 29 Because ethnic data is not always [...] 5 Kidney failure <15 (or dialysis) 30 Acute inflammation: >10.00 31 Result TnIDx:0.09 Called to [id number] at: 13:45:02 by:[id number] Read back by: [id number] 32 Because ethnic data is not always [...] 5 Kidney failure <15 (or dialysis) 33 Desirable <150 Borderline high 150-199 High 200-499 Very High >500 34 Desirable <200 Borderline high 200-239 High >239 35 Low <40 Desirable: 40-60 High: >60 36 Desirable: <100 mg/dL Near Optimal: 100-129 mg/dL Borderline High: 130-159 mg/dL High: 160-189 mg/dL Very High: >189 mg/dL 37 >100 to <200 pg/mL: likely compensated congestive heart failure (CHF) 200 to 400 pg/mL: likely moderate CHF >400 pg/mL: likely moderate to severe CHF 38 Because ethnic data is not always readily [...] 15-29 5 Kidney failure <15 (or dialysis) 39 w/ next INR draw Non-fasting ok 40 >100 to <200 pg/mL: likely compensated congestive heart failure (CHF) 200 to 400 pg/mL: likely moderate CHF >400 pg/mL: likely moderate to severe CHF 41 >100 to <200 pg/mL: likely compensated congestive heart failure (CHF) 200 to 400 pg/mL: likely moderate CHF >400 pg/mL: likely moderate to severe CHF 42 Because ethnic data is not always [...] 5 Kidney failure <15 (or dialysis) 43 Because ethnic data is not always readily [...] 15-29 5 Kidney failure <15 (or dialysis) 44 Result TnIDx:0.90 Called to [id number] at: 17:02:22 by:[id number] Read back by: [id number] 99th percentile=0.04 ng/mL Troponin results at [facility] and [facility] are not interchangeable. 45 [facility] 46 Reference ranges based on room air. 47 PA ROOM AIR 48 Reference ranges based on room air. 49 RV ROOMAIR 50 Reference ranges based on room air. 51 RA ROOM AIR 52 Reference ranges based on room air. 53 Because ethnic data is not always readily [...] 15-29 5 Kidney failure <15 (or dialysis) 54 Normal Range 180 to 914 Indeterminate Range 145 to 180 Deficient Range <145 55 Because ethnic data is not always readily [...] 15-29 5 Kidney failure <15 (or dialysis) 56 Desirable <150 Borderline high 150-199 High 200-499 Very High >500 57 Desirable <200 Borderline high 200-239 High >239 58 Low <40 Desirable: 40-60 High: >60 59 Desirable: <100 mg/dL Near Optimal: 100-129 mg/dL Borderline High: 130-159 mg/dL High: 160-189 mg/dL Very High: >189 mg/dL 60 Because ethnic data is not always readily [...] 15-29 5 Kidney failure <15 (or dialysis) 61 Desirable <150 Borderline high 150-199 High 200-499 Very High >500 62 Desirable <200 Borderline high 200-239 High >239 63 Low <40 Desirable: 40-60 High: >60 64 Desirable: <100 mg/dL Near Optimal: 100-129 mg/dL Borderline High: 130-159 mg/dL High: 160-189 mg/dL Very High: >189 mg/dL 65 Because ethnic data is not always [...] 5 Kidney failure <15 (or dialysis) 66 FASTING 67 HDL Interpretation: Undesirable: High Risk: Less than 40 mg/dL Desirable: Low Risk: Greater than 60 mg/dL 68 LDL Interpretation: Low Risk Optimal Level: LDL Less than 100 mg/dL Near or Above Optimal: LDL 100-129 mg/dL Borderline High Risk: LDL 130-159 mg/dL High Risk: LDL 160-189 mg/dL Very High Risk: LDL Greater than 189 mg/dL 69 Because ethnic data is not always readily [...] 15-29 5 Kidney failure <15 (or dialysis) 70 CHOLESTEROL INTERPRETATION: Desirable: Less than 200 MG/DL Borderline-High Risk: 200-239 MG/DL High-Risk: 240 MG/DL and over 71 HDL INTERPRETATION: Undesirable: High Risk: Less than 40 MG/DL Desirable: Low Risk: Greater than 60 MG/DL 72 LDL INTERPRETATION: Low Risk Optimal Level: LDL Less than 100 MG/DL Near or Above Optimal: LDL 100-129 MG/DL Borderline High Risk: LDL 130-159 MG/DL High Risk: LDL 160-189 MG/DL Very High Risk: LDL Greater than 189 MG/DL 73 Imm. NE 1 74 CHOLESTEROL INTERPRETATION: Desirable: Less than 200 MG/DL Borderline-High Risk: 200-239 MG/DL High-Risk: 240 MG/DL and over 75 HDL INTERPRETATION: Undesirable: High Risk: Less than 40 MG/DL Desirable: Low Risk: Greater than 60 MG/DL 76 LDL INTERPRETATION: Low Risk Optimal Level: LDL Less than 100 MG/DL Near or Above Optimal: LDL 100-129 MG/DL Borderline High Risk: LDL 130-159 MG/DL High Risk: LDL 160-189 MG/DL Very High Risk: LDL Greater than 189 MG/DL 77 Anion gap measurement may be of limited value in the presence of any alkalosis, especially in a combined acid base disorder. . 78 A metabolite of Naproxen, O-desmethylnaproxen, has been shown to interfere with the Jendrassik-Elicia method for measuring total bilirubin. Samples from patients who have taken Naproxen have shown spurious elevation in total bilirubin levels. 79 Because ethnic data is not always readily [...] 15-29 5 Kidney failure <15 (or dialysis) 80 RUN DATE: 08/02/11 [facility] NMI LIVE PAGE 1 RUN TIME: 932 Specimen Inquiry RUN USER: INTERFACE Name: MARICARMEN VILLARREAL Status: REG REF Re07/31/11 Age/Sex: 65/F Unit#: [id number] Location: [facility] : 47 SPEC #: [id number] CLAUDIA: 07/31/11 STATUS: COMP REQ #: [id number] RECD: 07/31/11 [facility] DR: Boo Batres III, MD SOURCE: URINE ENTR: 07/31/[address]: DUNCAN: ORDERED: URINE C S QUERIES: MEDENT REQUISITION # [id number] Procedure Result Verified Site > URINE CULTURE SENSITIVI Final 08/02/11- 932 ML Organism 1 ESCHERICHIA COLI COLONY COUNT >100,000 ORGANISMS/ML (MANY) 1. ESCHERICHIA COLI RX M.I.C. ------ --------- AMIKACIN S <=2 LEVOFLOXACIN S <=0.12 AMPICILLIN S <=2 CEFAZOLIN S <=4 CEFTRIAXONE S <=1 CIPROFLOXACIN S <=0.25 GENTAMICIN S <=1 TIGECYCLINE S <=0.5 CEFTAZIDIME S <=1 IMIPENEM S <=1 NITROFURANTOIN S 32 TRIMETH-SULFA S <=20 *These antibiotics are not available in the [facility] Formulary. Contact the Microbiology Department for any additional antibiotic reporting. [facility] Permit #[id number] [facility] [employer] [place] [id number] DEPARTMENT OF PATHOLOGY, [facility] [employer] [place], [place] [address] [facility] Permit #[id number] Philip Garner M.D. Director Lora Gipson M.D. Candle Extrusion Machine Operator 81 FAX RESULTS TO AT FAX NUMBER [phone] 82 Anion gap measurement may be of limited value in the presence of any alkalosis, especially in a combined acid base disorder. . 83 Note change in reference range as of 02/10/08. The change was based on recommendations from the [place] [employer]. 84 Please note change in reference range effective 07 . 85 Because ethnic data is not always readily [...] 15-29 5 Kidney failure <15 (or dialysis) 86 >100^>100,000 ORGANISMS/ML (MANY)^CCU 87 SCANT NORMAL URETHRAL OR PERINEAL MIRIAM 88 Anion gap measurement may be of limited value in the presence of any alkalosis, especially in a combined acid base disorder. . 89 Note change in reference range as of 02/10/08. The change was based on recommendations from the [place] [employer]. 90 Please note change in reference range effective 08 . 91 A metabolite of Naproxen, O-desmethylnaproxen, has been shown to interfere with the Jendrassik-Elicia method for measuring total bilirubin. Samples from patients who have taken Naproxen have shown spurious elevation in total bilirubin levels. 92 Because ethnic data is not always readily [...] 15-29 5 Kidney failure <15 (or dialysis) 93 THE URINE SPECIMEN WAS TESTED AT THE LISTED CUTOFFS: DRUG CLASS TEST LEVEL (NG/ML) AMPHETAMINES 300 BARBITUATES 200 COCAINE METABOLITES 300 CANNABINOIDS 25 OPIATES 200 THIS IS A SCREENING PROCEDURE. POSITIVE RESULTS ARE NOT CONFIRMED. SPECIMEN WAS RECEIVED WITHOUT CHAIN OF CUSTODY. RESULTS SHOULD BE USED FOR MEDICAL PURPOSES ONLY. . 94 -- REFERENCE VALUE -- Cutoff: 500 95 -- REFERENCE VALUE -- Cutoff: 200 96 -- REFERENCE VALUE -- Cutoff: 200 97 -- REFERENCE VALUE -- Cutoff: 300 98 -- REFERENCE VALUE -- Cutoff: 300 99 *Drug confirmation ordered by reflex. Refer to confirmation result to follow for the definitive result. -- REFERENCE VALUE -- Cutoff: 300 100 -- REFERENCE VALUE -- Cutoff: 300 101 This report is intended for use in clinical monitoring or management of patients. It is not intended for use in employment-related testing. Test Performed by: [facility] Dpt of Lab Med and Pathology [address] [place] [id number] Signal Processing Engineer: Bakari Quan III, M.D. 102 -- REFERENCE VALUE -- Cutoff: 300 103 -- REFERENCE VALUE -- Cutoff: 100 104 -- REFERENCE VALUE -- Cutoff: 100 105 -- REFERENCE VALUE -- Cutoff: 100 106 -- REFERENCE VALUE -- Cutoff: 100 107 -- REFERENCE VALUE -- Cutoff: 100 108 This report is intended for use in clinical monitoring and management of patients. It is not intended for use in employment-related drug testing. Test Performed by: [facility] Dpt of Lab Med and Pathology [address] [place] [id number] Signal Processing Engineer: Bakari Quan III, M.D. 109 Anion gap measurement may be of limited value in the presence of any alkalosis, especially in a combined acid base disorder. . 110 Note change in reference range as of 02/10/08. The change was based on recommendations from the [place] [employer]. 111 Please note change in reference range effective 07 . 112 A metabolite of Naproxen, O-desmethylnaproxen, has been shown to interfere with the Jendrassik-[place] method for measuring total bilirubin. Samples from patients who have taken Naproxen have shown spurious elevation in total bilirubin levels. 113 Because ethnic data is not always readily [...] Kidney failure <15 (or dialysis) Procedures Date Code Description Status 04/26/2018 97499 Pace Maker Eval W/Iterative Adjment Dual Lead Completed 03/26/2018 13755 EKG Tracing & Interpretation Completed 03/19/2018 85918 Pace Maker Eval W/Iterative Adjment Dual Lead Completed 03/18/2018 70354 Moderate Sedation Services; Same Phys Each Additional Completed 15 Mins 03/18/2018 61408 Moderate Sedation Services; Same Phys Intl 15 Mins; PT Completed >=5 Years 03/18/2018 94149 Perm Pacemaker Av Sequential Atrial And Ventricular Completed 02/26/2018 09889 ECHO Transthoracic, Real-Time 2D With Doppler And Completed Color Flow 02/26/2018 22383 ECHO Transthoracic, Real-Time 2D With Doppler And Completed Color Flow 02/12/2018 41119 EKG Tracing & Interpretation Completed 02/10/2018 46666 EKG Tracing & Interpretation Completed 01/03/2018 56805 Holter Monitor Review (24 hr)dr review & interp only Completed 12/28/2017 71844 ECG Monitor/Recording W/Visual Superimposition Completed Scanning 12/15/2017 11738 EKG Tracing & Interpretation Completed 09/24/2017 91505 EEG Recording Awake & Asleep Completed 09/24/2017 10379 ECHO Transthorasic Realtime 2D W Doppler & Color Flow Completed Hosp 09/24/2017 47405 EKG, Interpretation Only Completed 03/31/2017 97945 ECHO Transthoracic, Real-Time 2D With Doppler And Completed Color Flow 03/31/2017 83437 ECHO Transthoracic, Real-Time 2D With Doppler And Completed Color Flow 02/10/2017 61092 EKG Tracing & Interpretation Completed 2016 08056 ECHO Transthoracic, Real-Time 2D With Doppler And Completed Color Flow 10/14/2016 60067 EKG Tracing & Interpretation Completed 09/22/2016 19374 ECHO Transthorasic Realtime 2D W Doppler & Color Flow Completed Hosp 09/05/2016 36852 RT & lt Cath W/Injx HRT Art&L Ventr Img S&I Completed 08/08/2016 38351 Color Flow Doppler/Interp & Reprt Completed 08/08/2016 23225 Pulse Wave/Continuous-Interp.RPT Completed 08/08/2016 17300 Echocardiography, Transesophageal, Real Time W/Image Completed 2D W/W/O M-M 08/06/2016 95175 ECHO Stress Test Incl Perf Contiuous ekg Monitoring Completed W/Phys Superv 07/28/2016 96444 Spirometry Incl Graphic Record, Timed Expiratory Flow Completed Rate 07/28/2016 03334 Diffusing Capacity Completed 07/22/2016 35094 EKG Tracing & Interpretation Completed 07/22/2016 20406 EKG Tracing & Interpretation Completed 04/30/2016 97566 Chemotherpy Admin Subcutaneous/Im Non-Hormonal Completed Anti-Neoplastic 03/24/2016 43619 Inject/Drain Joint/Bursa Major W/O US Completed 03/11/2016 29263 ECHO Transthoracic, Real-Time 2D With Doppler And Completed Color Flow 03/05/2016 77341 EKG Tracing & Interpretation Completed 10/12/2015 795059573 Bone Mineral Density Test Completed 09/25/2015 74177 Chemotherpy Admin Subcutaneous/Im Non-Hormonal Completed Anti-Neoplastic 07/30/2015 11313 EKG Tracing & Interpretation Completed 03/21/2015 08121 Chemotherpy Admin Subcutaneous/Im Non-Hormonal Completed Anti-Neoplastic 03/20/2015 64190 EKG, Interpretation Only Completed 10/30/2014 38104608 Mammogram Completed 09/19/2014 72290 Admin Of Inj Completed 01/09/2014 17205 EKG Tracing & Interpretation Completed 09/05/2013 22451 Xray Knee 3 Views Completed 09/05/2013 70405 Rad Exam; Knee, Ap&L Completed 09/05/201352049 Inject/Drain Joint/Bursa Major W/O US Completed 08/12/2013 30206606 Mammogram Completed 08/12/2013 523136033 Bone Mineral Density Test Completed 05/23/2013 00086 EKG Tracing & Interpretation Completed 05/21/2012 48697 EKG Tracing & Interpretation Completed 12/09/2011 72569 Mobile Cardiovascular Telemetry Over 24 HR Up To 30 Completed Days 11/27/2011 01940 Holter Monitor Review (24 hr)dr review & jesus only Completed 11/19/2011 94096 EKG Tracing & Interpretation Completed 07/03/2011 07760119 Mammogram Completed 07/03/2011 006426936 Bone Mineral Density Test Completed 06/05/2011 21259 EKG Tracing & Interpretation Completed 02/14/2011 43217 Inject/Drain Joint/Bursa Major W/O US Completed 02/14/2011 77589 Xray Knee 3 Views Completed 02/14/2011 49301 Xray Knee 3 Views Completed 05/21/2010 13124 Nasal Endoscopy, Diagnostic Completed 05/14/2010 59345508 Mammogram Completed 05/01/2010 58771377 Mammogram Completed 04/09/2010 79348 Mobile Cardiovascular Telemetry Over 24 HR Up To 30 Completed Days 03/04/2010 17114 EKG Tracing & Interpretation Completed 02/14/2010 86484 Mobile Cardiovascular Telemetry Over 24 HR Up To 30 Completed Days 02/13/2010 97689 EKG Tracing & Interpretation Completed 02/12/2010 75413 ECHO Transthoracic, Real-Time 2D With Doppler And Completed Color Flow 01/07/2010 21833 Treadmill Interp/Report Only Completed 01/07/2010 78312 Stress Test Supervsn W/Out I/R Completed 11/19/2006 073722519 Bone Mineral Density Test Completed Encounters Type Date Location Provider Dx Diagnosis Office Visit 03/26/2018 [facility] Sophy Peoples, I48.0 Paroxysmal atrial 10:00a Of Manufacturing Business Analyst N.PLadarius fibrillation I49.5 Sick sinus syndrome I50.32 Chronic diastolic (congestive) heart failure Z95.0 Presence of cardiac pacemaker Office Visit 03/22/2018 [facility] Buster Mccartney J90 Pleural effusion, 2:25p Of Rosita Moser M.D. not elsewhere classified Office Visit 03/22/2018 [facility] I48.91 Unspecified atrial 11:08a Assoc,ELIJAH [place] fibrillation Hospitalists M25.551 Pain in right hip I49.5 Sick sinus syndrome Z95.0 Presence of cardiac pacemaker W19.xxxA Unspecified fall, initial encounter [facility] S[facility] sinus Assoc,lisa Bowers DO syndrome Hospitalists J90 Pleural effusion, not elsewhere classified Z95.0 Presence of cardiac pacemaker F32.9 Major depressive disorder, single episode, unspecified [facility] Sick sinus Assoc,lisa Bowers DO syndrome Hospitalists Z95.0 Presence of cardiac pacemaker R26.81 Unsteadiness on feet F32.9 Major depressive disorder, single episode, unspecified Office Visit 03/19/2018 [facility] Allison Kerr, I48.0 Paroxysmal atrial 10:46a Of Rosita Ann fibrillation Office Visit 03/19/2018 [facility] I49.5 Sick sinus 11:07a Assoc,lisa Prasad NP syndrome Hospitalists Z95.0 Presence of cardiac pacemaker D64.9 Anemia, unspecified F32.9 Major depressive disorder, single episode, unspecified R79.89 Other specified abnormal findings of blood chemistry R26.81 Unsteadiness on feet Office Visit 03/18/2018 11:06a [facility] I49.5 Sick sinus Assoc,lisa Prasad NP syndrome Hospitalists Z95.0 Presence of cardiac pacemaker D64.9 Anemia, unspecified R79.89 Other specified abnormal findings of blood chemistry R26.81 Unsteadiness on feet Office Visit 03/17/2018 [facility] I48.91 Unspecified atrial 11:06a Assoc,lisa Eng, fibrillation 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 syndrome Office Visit 03/05/2018 8:00a [facility] Caleb Concepcion I48.0 Paroxysmal atrial Marissa Portillo fibrillation I50.9 Heart failure, unspecified Z72.0 Tobacco use Office Visit 02/12/2018 11:00a [facility] Sophy Perez I48.92 Unspecified Of Rosita Peoples N.Kofi atrial flutter I50.32 Chronic diastolic (congestive) heart failure R60.9 Edema, unspecified R06.00 Dyspnea, unspecified I44.0 Atrioventricular block, first degree Office Visit 02/10/2018 11:00a [facility] Caleb Concepcion I48.92 Unspecified Marissa Portillo atrial flutter R06.00 Dyspnea, unspecified I25.10 Athscl heart disease of [place] coronary artery w/o ang pctrs R60.9 Edema, unspecified I50.32 Chronic diastolic (congestive) heart failure Office Visit 02/05/2018 11:20a [facility] Internal Boo WilliamLadarius Cormierie, M54.2 Cervicalgia [facility] [place] I48.92 Unspecified atrial flutter M79.7 Fibromyalgia M81.0 Age-related osteoporosis w/o current pathological fracture Z12.31 Encntr screen mammogram for malignant neoplasm of breast J18.9 Pneumonia, unspecified organism Office Visit 01/07/2018 [facility] Mary I48.91 Unspecified 1:01p Assoclisa NP atrial Hospitalists fibrillation J18.9 Pneumonia, unspecified organism [facility] Chest pain, 1:00p Assoclisa NP unspecified Hospitalists I48.91 Unspecified atrial fibrillation Office Visit 12/15/2017 11:00a [facility] Sophy SLadarius I48.91 Unspecified atrial Of [facility] Foster, N.P. fibrillation E78.5 Hyperlipidemia, unspecified I10 Essential (primary) hypertension Z95.2 Presence of prosthetic heart valve Office Visit 11/11/2017 [facility] Romero I48.91 Unspecified atrial 11:54a Asslisa killian M.D. fibrillation Hospitalists N17.9 Acute kidney failure, unspecified R74.8 Abnormal levels of other serum enzymes M79.7 Fibromyalgia Office Visit 11/10/2017 [facility] Romero I48.91 Unspecified atrial 11:53a Asslisa killian M.D. fibrillation Hospitalists N17.9 Acute kidney failure, unspecified R74.8 Abnormal levels of other serum enzymes M79.7 Fibromyalgia Office Visit 11/09/2017 [facility] Olive Miguel, I48.91 Unspecified 11:52a Asslisa killian M.D. atrial Hospitalists fibrillation N17.9 Acute kidney failure, unspecified R74.8 Abnormal levels of other serum enzymes M79.7 Fibromyalgia Office Visit 11/08/2017 [facility] Olive Lamont, I48.91 Unspecified 11:51a lisa Redman M.D. atrial Hospitalists fibrillation N17.9 Acute kidney failure, unspecified R74.8 Abnormal levels of other serum enzymes M79.7 Fibromyalgia Office Visit 11/07/2017 [facility] Isis Baum I48.91 Unspecified 11:50a Assoc,lisa Prasad, TERMINAL BLOCK ASSEMBLER atrial Hospitalists fibrillation N17.9 Acute kidney failure, unspecified R74.8 Abnormal levels of other serum enzymes M79.7 Fibromyalgia Office Visit 11/02/2017 2:40p [facility] Internal Boo E. 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 infarction due Hospitalists to embolism of unsp precerb artery I48.92 Unspecified atrial flutter E86.0 Dehydration Office Visit 09/28/2017 8:34a [facility] Elian I63.10 Cerebral Assoc,lisa Chaney M.D. infarction due Hospitalists to embolism of unsp precerb artery I48.92 Unspecified atrial flutter E86.0 Dehydration Office Visit 09/27/2017 [facility] Olive Miguel, I63.10 Cerebral 8:33a lisa Redman M.D. infarction due Hospitalists to embolism of unsp precerb artery I48.92 Unspecified atrial flutter E86.0 Dehydration Office Visit 09/27/2017 4:21p [facility] Josh Lara I48.92 Unspecified atrial Of Rosita Muñiz M.D., flutter [facility] I63.9 Cerebral infarction, unspecified Z95.1 Presence of aortocoronary bypass graft Office Visit 09/26/2017 [facility] Olive Miguel, I63.10 Cerebral 8:33a Asslisa killian M.D. infarction due Hospitalists to embolism of unsp precerb artery I48.92 Unspecified atrial flutter E86.0 Dehydration W19.xxxA Unspecified fall, initial encounter Office Visit 09/25/2017 [facility] Olive Miguel, I63.10 Cerebral 8:32a lisa Redman M.D. infarction due Hospitalists to embolism of unsp precerb artery I48.92 Unspecified atrial flutter E86.0 Dehydration W19.xxxA Unspecified fall, initial encounter Office Visit 09/25/2017 [facility] Billy R29.6 Repeated falls 7:00a Kain Cain M.D. I63.40 Cerebral infarction due to embolism of unsp cerebral artery [facility] I63.10 Cerebral 8:30a Asslisa killian M.D. infarction due Hospitalists to embolism of unsp precerb artery I48.92 Unspecified atrial flutter E86.0 Dehydration W19.xxxA Unspecified fall, initial encounter Office Visit 09/24/2017 [facility] Jad Perez R29.6 Repeated falls 7:00a Kain Pruett M.D. I63.40 Cerebral infarction due to embolism of unsp cerebral artery Office [facility], R27.0 Ataxia, 8:24a lisa Redman M.D. unspecified Hospitalists E86.0 Dehydration R00.0 Tachycardia, unspecified W19.xxxA Unspecified fall, initial encounter Office Visit 08/24/2017 1:20p [facility] Internal Boo Lennon R07.89 Other chest Medicine - Marissa Batres pain [place] D64.9 Anemia, unspecified Office Visit 05/20/2017 9:30a [facility] Maria Del Carmen Hough, Z95.2 Presence of PA prosthetic heart valve I10 Essential (primary) hypertension E78.5 Hyperlipidemia, unspecified D64.9 Anemia, unspecified Office Visit 03/23/2017 2:30p [facility] Maria Del Carmen Hough Z95.2 Presence of PA prosthetic heart valve R53.1 Weakness I10 Essential (primary) hypertension E78.5 Hyperlipidemia, unspecified D64.9 Anemia, unspecified Office Visit 02/10/2017 3:40p [facility] Caleb Concepcion Z95.2 Presence of Marissa Portillo prosthetic heart valve I34.0 Nonrheumatic mitral (valve) insufficiency R06.02 Shortness of breath I25.10 Athscl heart disease of [place] coronary artery w/o ang pctrs I10 Essential (primary) hypertension E78.5 Hyperlipidemia, unspecified Office Visit 11/07/2016 9:00a [facility] Maria Del Carmen Hough, Z95.2 Presence of Of Manufacturing Business Analyst PA prosthetic heart valve R06.02 Shortness of breath I25.10 Athscl heart disease of [place] coronary artery w/o ang pctrs I10 Essential (primary) hypertension Office Visit 10/21/2016 3:00p [facility] Maria Del Carmen Hough, Z95.2 Presence of Of Manufacturing Business Analyst PA prosthetic heart valve R06.02 Shortness of breath Z79.01 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 I34.0 Nonrheumatic mitral 2:20p Cardiology Marissa Cunha (valve) insufficiency I10 Essential (primary) hypertension R06.02 Shortness of breath I25.10 Athscl heart disease of [place] coronary artery w/o ang pctrs Office Visit 09/02/2016 [facility] Qutaybeh S. I34.0 Nonrheumatic mitral 11:00a Silvana Cunha M.D. (valve) insufficiency I10 Essential (primary) hypertension R06.02 Shortness of breath R07.89 Other chest pain G89.4 Chronic pain syndrome Office Visit 07/22/2016 8:40a [facility] Caleb Concepcion I10 Essential (primary) Marissa Portillo hypertension I34.0 Nonrheumatic mitral (valve) insufficiency I10 Essential (primary) hypertension R06.00 Dyspnea, unspecified F17.210 Nicotine dependence, cigarettes, uncomplicated I34.0 Nonrheumatic mitral (valve) insufficiency I95.1 Orthostatic hypotension R06.00 Dyspnea, unspecified Office Visit 07/16/2016 11:15a [facility] Raul Holder, M25.561 Pain in right Of C.M.A. MFam knee M17.11 Unilateral primary osteoarthritis, right knee M25.571 Pain in right ankle and joints of right foot M65.871 Other synovitis and tenosynovitis, right ankle and foot Office Visit 06/30/2016 9:00a Neurosurgery Jad Holden, M54.5 [facility] [facility] Marissa pain M47.22 Other spondylosis with radiculopathy, cervical region Office Visit 06/26/2016 9:00a [facility] Nurse Visit I10 Essential (primary) cc hypertension Office Visit 06/05/2016 9:00a [facility] Maria Del Carmen Hough, I10 Essential (primary) PA hypertension I34.0 Nonrheumatic mitral (valve) insufficiency M54.2 Cervicalgia F41.9 Anxiety disorder, unspecified Office Visit 05/08/2016 10:00a [facility] Maria Del Carmen Hough, I34.0 Nonrheumatic mitral PA (valve) insufficiency I10 Essential (primary) hypertension Office Visit 04/30/2016 9:00a [facility] Internal Boo Batres, M54.2 Cervicalgia Medicine Marissa [facility] Z23 Encounter for immunization Z92.29 Personal history of other drug therapy M81.0 Age-related osteoporosis w/o current pathological fracture Office Visit 04/10/2016 3:30p [facility] Maria Del Carmen Hough I34.0 Nonrheumatic mitral Of [facility] PA (valve) insufficiency I10 Essential (primary) hypertension Office 03/24/2016 Orthopedic Raul Holder, M75.51 Bursitis of right Visit 8:15a Services Of Marissa shoulder C.M.A. Office 03/05/2016 [facility] Concepcion E78.0 Pure Visit 11:00a Cardiology Marissa Portillo hypercholesterolemia G89.4 Chronic pain syndrome F17.200 Nicotine dependence, unspecified, uncomplicated I10 Essential (primary) hypertension I34.0 Nonrheumatic mitral (valve) insufficiency Office Visit 02/18/2016 4:00p [facility] Moses Lennon R21 Rash and other Nabor Batres M.D. nonspecific skin [place] eruption Office Visit 08/24/2015 2:00p [facility] ELIJAH Mora I10 Essential (primary) hypertension I95.1 Orthostatic hypotension E78.0 Pure hypercholesterolemia Office Visit 07/30/2015 [facility] Concepcion R03.0 Elevated 1:20p Cardiology Marissa Portillo blood-pressure reading, w/o diagnosis of htn I95.1 Orthostatic hypotension Office Visit 06/25/2015 2:40p [facility] Internal Medicine Boo Batres, R12 Heartburn - Wilman Ann Z23 Encounter for immunization Office Visit 03/19/2015 Neurosurgery Jad M50.12 Cervical disc 9:45a Services Of Rosita Holden M.D. disorder w radiculopathy, mid-cervical region Office Visit 01/26/2015 [facility] Internal Boo Lennon 796.2 Blood Pressure 11:40a Nabor Batres M.D. Reading Elevated Secor W/O Hypertension V76.51 Special Screening For Malignant Neoplasms Colon Office Visit 02/27/2014 11:20a [facility] Moses Lennon 807.04 FX Ribs Closed Nabor Batres M.D. Four Secor 733.00 Osteoporosis Unspec Office Visit 01/09/2014 1:40p [facility] Caleb Concepcion 300.02 Anxiety Disorder Marissa Portillo Generalized 272.0 Hypercholesterolemia Pure 796.2 Blood Pressure Reading Elevated W/O Hypertension 458.0 Hypotension Orthostatic Office Visit 09/05/2013 10:00a Orthopedic Dirk Gallo, 716.96 Arthropathy Unspec Services Of Marissa Lower Leg C.M.ALadarius Office Visit 08/24/2013 1:40p [facility] Moses Lennon 733.00 Osteoporosis Nabor Batres M.D. Unspec Secor Office Visit 05/23/2013 1:40p [facility] Concepcion 300.02 Anxiety Disorder Cardiology Marissa Portillo Generalized 272.0 Hypercholesterolemia Pure 780.4 Dizziness & Giddiness Office Visit 03/11/2013 [facility] Internal Boo Lennon 272.0 Hypercholesterolemia Pure 10:00a Nabor Batres M.D. Secor 733.00 Osteoporosis Unspec 300.02 Anxiety Disorder Generalized V73.89 Screening Examination Viral Diseases Other Spec V04.81 Need For Prophylactic Vaccination & Inoculation/Influenza V03.82 Streptococcus Pneumoniae Vaccination Spec Other Office Visit 05/21/2012 2:20p [facility] Caleb Concepcion 780.4 Dizziness & Marissa Portillo Giddiness 272.0 Hypercholesterolemia Pure 300.02 Anxiety Disorder Generalized Office 01/28/2012 [facility] Internal Boo Lennon 272.0 Hypercholesterolemia Pure Visit 1:20p Nabor Batres M.D. Secor Office 12/11/2011 [facility] Wendie 780.4 Dizziness & Giddiness Visit 11:30a Cardiology AT [facility] Office 11/19/2011 [facility]aleb Concepcion 272.0 Hypercholesterolemia Pure Visit 11:00a Cardiology AT Marissa Portillo [facility] 780.4 Dizziness & Giddiness 386.9 Vertiginous Syndromes & Labyrinthine Disorders Unspec 786.59 Pain Chest Other Office Visit 11/13/2011 [facility] Boo Lennon 272.0 Hypercholesterolemia Pure 10:40a Nabro Batres M.D. Secor Office Visit 10/23/2011 [facility] Boo Lennon 780.4 Dizziness & Giddiness 10:40a Nabor Batres M.D. Secor 300.02 Anxiety Disorder Generalized Office Visit 07/31/2011 3:00p [facility] Boo Lennon 791.9 Urine Examination Nabor Batres M.D. Other Nonspecific Secor Findings 791.9 Urine Examination Other Nonspecific Findings Office Visit 06/05/2011 2:20p [facility] Caleb Concepcion 300.02 Anxiety Disorder Marissa Portillo Generalized 785.1 Palpitations 786.50 Pain Chest Unspec Office Visit 03/27/2011 3:40p DO Not Use Rosita Lennon 733.00 Osteoporosis Unspec AT Winthroprajan Batres M.D. V76.10 Screening For Malignant Neoplasm Breast 715.90 Osteoarthrosis Unspec Genlzd Or Localized Site Unspec V04.81 Need For Prophylactic Vaccination & Inoculation/Influenza 300.02 Anxiety Disorder Generalized 785.1 Palpitations Office Visit 02/14/2011 1:45p Orthopedic Raul Holder, 716.96 Arthropathy Services Of Marissa Unspec Lower Leg C.M.A. Office Visit 06/04/2010 3:00p ENT Services Of Caleb 350.2 Face Pain C.M.A. AT Marissa Salazar Atypical Ervin Office Visit 05/21/2010 1:30p ENT Services Of [facility]aleb 350.2 Face Pain C.M.A. AT Marissa Salazar 473.0 Sinusitis Chronic Maxillary Office Visit 05/13/2010 1:40p DO Not Use Manufacturing Business Analyst AT Boo Batres, 611.71 Mastodynia Tk Ann 461.1 Sinusitis Acute Frontal 472.0 Rhinitis Chronic 727.1 Bunion Office Visit 04/25/2010 1:00p DO Not Use [employer] Business [employer]st Boo Lennon 702.19 Seborrheic AT Tk Batres M.D. Keratosis Other V76.10 Screening For Malignant Neoplasm Breast Office Visit 03/19/2010 10:20a DO Not Use [employer] Business Analyst Boo Lennon 465.9 URI Upper AT Tk Batres M.D. Respiratory Infections Acute Unspec Sites Office Visit 03/15/2010 10:40a DO Not Use [employer] Business Analyst Boo Lennon 338.4 Chronic Pain AT Tk Batres M.D. Syndrome 785.1 Palpitations Office Visit 03/04/2010 10:30a [facility] Nurse Visit cc 338.4 Chronic Pain Syndrome 785.1 Palpitations 424.0 Mitral Valve Disorder 424.1 Aortic Valve Disorder Office Visit 02/13/2010 11:00a [facility] Caleb Concepcion 786.50 Pain Chest Marissa Portillo Unspec 785.1 Palpitations Office Visit 02/06/2010 3:00p DO Not Use Manufacturing Business Analyst AT Boo Batres, 724.2 Lumbago Tk Ann 785.1 Palpitations Office Visit 01/17/2010 2:00p DO Not Use Manufacturing Business Analyst AT Boo Batres, 785.1 Palpitations Tk Ann 593.9 Kidney & Ureter Disorders Unspec Office Visit 01/07/2010 10:00a [facility] Caleb Concepcion 786.50 Pain Chest Marissa Portillo Unspec 785.1 Palpitations 786.09 Dyspnea & Respiratory Abnormalities Other Office Visit 12/26/2009 9:40a DO Not Use Manufacturing Business Analyst Boo ELadarius 785.1 Palpitations AT Tk Batres M.D. Office Visit 11/26/2009 10:00a DO Not Use Manufacturing Business Analyst Boo E. 786.09 Dyspnea & AT Tk Batres M.D. Respiratory Abnormalities Other Office Visit 09/28/2009 10:45a DO Not Use [employer] Business Analyst Murli 477.8 Rhinitis Allergic AT Tk Mendoza M.D. Due To Other Allergen Office Visit 08/28/2009 10:45a DO Not Use [employer] Business Analyst Murli 338.4 Chronic Pain AT Tk Mendoza M.D. Syndrome 338.4 Chronic Pain Syndrome Office Visit 08/07/2009 10:45a DO Not Use Manufacturing Business Analyst Dawnli Kelly, 461.9 Sinusitis Acute AT Tk Ann Unspec 338.4 Chronic Pain Syndrome 300.02 Anxiety Disorder Generalized 461.9 Sinusitis Acute Unspec Office Visit 07/20/2009 11:20a DO Not Use Manufacturing Business Analyst Thananart, 338.4 Chronic Pain AT Tk Garcia M.D. Syndrome 729.1 Myalgia & Myositis Unspec 473.9 Sinusitis Chronic Unspec 780.52 Insomnia Unspecified Office Visit 06/19/2009 8:40a DO Not Use [employer] Business Analyst Thananart, 845.00 Sprains & AT Tk Garcia M.D. Strains Ankle Unspec Site Office Visit 05/28/2009 9:40a DO Not Use [employer] Business Analyst Thananart, 338.4 Chronic Pain AT Tk Garcia M.D. Syndrome 461.9 Sinusitis Acute Unspec Office Visit 04/25/2009 8:40a DO Not Use [employer] Business Analyst Thananart, 338.4 Chronic Pain AT Tk Garcia M.D. Syndrome 338.4 Chronic Pain Syndrome Office Visit 04/12/2009 10:20a DO Not Use [employer] Business Analyst Thananart, 729.1 Myalgia & AT Tk Garcia M.D. Myositis Unspec 338.4 Chronic Pain Syndrome 300.02 Anxiety Disorder Generalized 780.79 Malaise And Fatigue Other 338.4 Chronic Pain Syndrome 846.1 Sprains & Strains Sacroiliac Region Sacroiliac Ligament Office Visit 03/21/2009 9:20a DO Not Use [employer] Business Analyst Thananart, 338.4 Chronic Pain AT Winthroprajan Garcia M.D. Syndrome 729.1 Myalgia & Myositis Unspec 719.46 Pain Joint Lower Leg 846.1 Sprains & Strains Sacroiliac Region Sacroiliac Ligament 729.1 Myalgia & Myositis Unspec 338.4 Chronic Pain Syndrome 300.02 Anxiety Disorder Generalized Office Visit 02/07/2009 10:00a DO Not Use Manufacturing Business Analyst Thananart, 338.4 Chronic Pain AT [facility] Marissa Garcia Syndrome 338.4 Chronic Pain Syndrome 733.00 Osteoporosis Unspec 724.9 Back Disorders Other Unspec 729.1 Myalgia & Myositis Unspec 300.02 Anxiety Disorder Generalized 719.46 Pain Joint Lower Leg Office Visit 12/07/2008 3:00p DO Not Use Manufacturing Business Analyst Thananart, 338.4 Chronic Pain AT Winthroprajan Garcia M.D. Syndrome 729.1 Myalgia & Myositis Unspec 733.00 Osteoporosis Unspec 296.30 Depressive Disorder Major Recurrent Unspec 300.02 Anxiety Disorder Generalized 796.2 Blood Pressure Reading Elevated W/O Hypertension 338.4 Chronic Pain Syndrome 733.00 Osteoporosis Unspec 729.1 Myalgia & Myositis Unspec 296.30 Depressive Disorder Major Recurrent Unspec 300.02 Anxiety Disorder Generalized Plan of Treatment 03/26/2018 - Sophy Peoples, N.P.I48.0 Paroxysmal atrial fibrillationNew Labs: Basic Metabolic Panel, Ordered: 03/26/18Magnesium, Ordered: 03/26/18Digoxin, Ordered: 03/26/18Comments:Your rate is controlled.Referral:Carlos Eduardo Jeff MD, Cardiac ElectrophyslgyRecommendations:HR controlled continue current meds.I49.5 Sick sinus cqbmrcesR08.32 Chronic diastolic (congestive) heart optmhqtL95.0 Presence of cardiac pacemakerFollow up:PO 3-4 weeks OV Sophy or JFMRecommendations:Wear brace until pacer check in 3-4 weeks
[2018-05-23 18:24] LABS: ABS Basophils 0.1 10^3/ul (0-0.2); ABS Eosinophils 0.2 10^3/ul (0-0.6); ABS Lymphocytes 2.5 10^3/ul (1.0-4.8); ABS Monocytes 0.8 10^3/ul (0-0.8); ABS Neutrophils 5.8 10^3/ul (1.5-7.7); ABS Nucleated RBC 0 10^3/ul; Eosinophil % 2.1 %; Hematocrit 29 % (35-47); Hemoglobin 8.8 g/dl (12.0-16.0); Lymphocyte % 26.4 %; Mean Corpuscular HGB Conc 30 g/dl (31-36); Mean Corpuscular Hemoglobin 25 pg (27-31); Mean Corpuscular Volume 82 fL (80-97); Mean Platelet Volume 8.5 fL (7.4-10.4); Nucleated Red Blood Cells % 0.1; Platelet Count 157 10^3/ul (150-450); Red Blood Count 3.56 10^6/ul (4.00-5.40); Red Cell Distribution Width 21 % (10.5-15); White Blood Count 9.4 10^3/ul (3.5-10.8)
[2018-05-23 18:41] LABS: ALT 14 U/L (7-52); AST 14 U/L (13-39); Albumin 3.3 g/dL (3.2-5.2); Albumin/Globulin Ratio 1.2 (1-3); Alkaline Phosphatase 88 U/L (34-104); Blood Urea Nitrogen 38 mg/dL (6-24); C Reactive Protein 4.43 mg/L (<8.01); CO2 Carbon Dioxide 22 mmol/L (22-32); EGFR Non-African American 36.8 (>60); Globulin 2.8 g/dL (2-4); Glucose 85 mg/dL (70-100); Potassium 4.4 mmol/L (3.5-5.0); Sodium 142 mmol/L (135-145); Total Protein 6.1 g/dL (6.4-8.9)
[2018-05-23 18:52] LABS: Anion Gap 6 mmol/L (2-11); Chloride 114 mmol/L (101-111)
[2018-05-23 19:01] LABS: Acetaminophen < 15 mcg/mL; Digoxin 1.7 ng/ml (0.8-2.0)
[2018-05-23 19:16] LABS: TSH (Thyroid Stimulating Horm) 1.39 mcIU/mL (0.34-5.60)
[2018-05-23] MEDS ORDERED: NS 0.9% 500 ML* 500 ML IV ONE (20:13)
[2018-05-23] MEDS ORDERED: oxyCODONE TAB* 5 MG TAB PO ONE (20:14)
[2018-05-23 21:25] LABS: Urine Appearance Cloudy; Urine Bacteria Absent (Absent); Urine Bilirubin Negative (Negative); Urine Blood Negative (Negative); Urine Color Yellow; Urine Glucose Negative (Negative); Urine Ketones Negative (Negative); Urine Nitrite Negative (Negative); Urine Protein 1+(30 mg/dL) (Negative); Urine Red Blood Cell Trace(0-2/hpf) (Absent); Urine Specific Gravity 1.017 (1.010-1.030); Urine Urobilinogen Negative (Negative); Urine White Blood Cell Trace(0-5/hpf) (Absent)
[2018-05-23 21:51] LABS: Barbiturates Urine Screen None Detected (None Detect); Benzodiazepine Urine Screen None Detected (None Detect); Urine Cannabinoids Screen None Detected (None Detect)
[2018-05-24] MEDS ORDERED: Atorvastatin* 80 MG TAB PO ONE (00:29)
--- NOTE | 2018-05-24 00:37 | HP ---
CC: Dr. Batres.* HISTORY AND PHYSICAL: DATE OF ADMISSION: 05/23/18 PRIMARY CARE PHYSICIAN: Dr. Batres. ATTENDING PHYSICIAN: Dr. Li Bruno * (dictated provided by Opal Strong NP) CHIEF COMPLAINT: Alerted mental status. HISTORY OF PRESENT ILLNESS: Ms. Villarreal is a 72-year-old female with a past medical history of unsteady gait with falls, hypertension, atrial fibrillation with a pacemaker, anxiety, depression who presents to the hospital with concern for altered mental status. Ms. Villarreal is confused today and not able to provide any information in regard to history of present illness. I spoke with her daughter, Citlaly, over the phone with whom the patient lives. Her daughter reports that she has had intermittent periods for sometime where she will become confused, but is easily re-oriented. She also has had frequent falls; however, has been doing well for the past month or so. The patient's daughter states that yesterday she was again suddenly very confused. She was hallucinating and talking to her . She was having jerking movements and unable to even hold a cup to bring a glass of water to her mouth to drink. By the evening when the symptoms did not resolve, the family called EMS to have her brought to the hospital. On arrival of EMS, the patient did seem a little bit more coherent, but was very angry and refused to go to the hospital for evaluation. The patient went to sleep and woke up this morning and seemed to be back to baseline. However, by this afternoon she was again very confuse, hallucinating and again having intermittent jerking of her arms. The fell multiple times. By the evening hours when this did not resolve, EMS was called again to bring her to the hospital. The patient's daughter does not know of any acute health complaints other than the fact that the patient reports that she did vomit the day before yesterday and she had a bout of diarrhea x1 today in which she was incontinent of stool. In the emergency room, Ms. Villarreal was confused. She keeps speaking about her sister Erika, even calling me Erika at times. She had labs which are unremarkable given her history. She is anemic with a hemoglobin of 8.8, but this is consistent with previous. Her BUN and creatinine are elevated, but are only slightly above her baseline. Her troponin is 0.11, but she has had a consistently elevated troponin on multiple checks here in the past. Her BNP is 341, but this is consistent with previous. Her CRP is only 4.43. She has no leukocytosis. Her vitals are stable. She is not febrile. PAST MEDICAL HISTORY: 1. History of frequent falls with unsteady gait. 2. History of dizziness. 3. Hypertension. 4. 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 5. Fibromyalgia and chronic back pain. 6. Anxiety. 7. Depression. 8. Osteoporosis. PAST SURGICAL HISTORY: 1. Status post right arm ORIF. 2. Status post tonsillectomy. 3. Status post appendectomy. 4. Status post bilateral carpal tunnel release. 5. Status post mitral valve replacement, porcine valve and 2-vessel CABG in September 2016. 6. Status post total abdominal hysterectomy with bilateral salpingo- oophorectomy. 7. Status post cholecystectomy. 8. Status post gastric stapling. MEDICATIONS: List was completed by the nursing staff, with the list provided by the patient's daughter which I do not have access to. Per report, she is on: 1. Torsemide 5 mg p.o. daily. 2. Pravastatin 40 mg p.o. daily. 3. Omeprazole 20 mg p.o. daily. 4. Metoprolol succinate 150 mg p.o. daily. 5. Folic acid 1 mg p.o. daily. 6. Fluticasone nasal spray one spray both nares daily. 7. Diltiazem CD 360 mg p.o. daily. 8. Digoxin 125 mcg p.o. daily. 9. Baclofen 1 tab p.o. daily. 10. Aspirin 81 mg p.o. daily. 11. Amitriptyline 50 mg p.o. t.i.d. 12. Apixaban 5 mg p.o. b.i.d. ALLERGIES: No known drug allergies. FAMILY HISTORY: Unobtainable. SOCIAL HISTORY: Unobtainable. REVIEW OF SYSTEMS: The patient denies any symptoms. The patient's daughter only notes that she had this vomiting x1 and diarrhea x1. PHYSICAL EXAMINATION GENERAL: Ms. Villarreal is lying in the bed, she is in no acute distress. VITAL SIGNS: Temperature 99.4, pulse rate 67, respiratory rate 16, O2 saturation 98% on room air, and blood pressure 141/72. LUNGS: Clear to auscultation bilaterally with no accessory muscle use and good aeration. HEART: S1 and S2. No murmur, rub, or gallop and regular. ABDOMEN: Soft and nontender with bowel sounds positive x4. EXTREMITIES: No cyanosis or edema. NEUROLOGIC: She is alert. She is oriented to herself only. She is incoherent in her speech and seems to be juxtaposing words together in ways it does not make sense. She will follow my commands generally though seems frustrated by my requests and does not always do so. There is no facial asymmetry. Her pupils are dilated, but they are reactive to light. They are equal bilaterally. She has good strength in her right upper extremity and workers' compensation commissioner. She seems more reluctant to use the left extremity, but does have a strong workers' compensation commissioner without a clear pronator drift. She has ataxia noted, with large intermittent jerks, only on the left upper extremity with finger to nose. She has good strength in bilateral lower extremities. SKIN: Intact. LABORATORY DATA: Sodium 142, potassium 4.4, chloride 114, serum bicarbonate 22 , BUN 38, creatinine 1.41, glucose 85, troponin 0.11, BNP 341. WBC 9.4, hemoglobin 8.8, hematocrit 29, platelet count 157. Urine shows no evidence of infection. Digoxin is 1.7 and Tylenol levels less than 15. CT brain shows no acute abnormality nor does the cervical spine CT. The shoulder x-rays have been taken, but have not been read yet. ASSESSMENT: Ms. Villarreal Is a 72-year-old female with a past medical history of: chronic pain, atrial fibrillation with tachybrady and pacemaker, unsteady gait and falls who presents to the hospital with concern for confusion. Plans are for inpatient admission as I expect her length of stay would be greater than 2 days for the followin. Altered mental status: It is not clear what is driving the patient's acute decompensation. The patient's daughter seems to report that she has had intermittent episodes similar to this in the past, but nothing that has ever lasted this long or been this severe. I question whether or not she may have some underlying dementia with an episode of delirium although the cause of the delirium is unclear. It also sounds like she could have toxic metabolic encephalopathy given the report of altered mental status and shaking, twitching type behavior. Again, no cause of that is clear as well. She is not on any medications that would seem to be the culprit. She has no evidence of infection , she has no evidence of ischemia or infarct or other abnormality on the CT brain. Her electrolytes appear normal. Our plan will be to evaluate further with neurological checks q.4 hours. I have written for an MRI brain if she has the capacity to do that tomorrow depending on her mentation. I think she would benefit from consultation with Neurology tomorrow, but will defer to the day provider. 2. Elevated troponin, plan to repeat x2. She will be monitored on telemetry. 3. Code status is full code. 4. History of atrial fibrillation, plan to continue the digoxin, diltiazem, and metoprolol. The patient is rate controlled at this time. 5. History of question congestive heart failure. The patient is on torsemide at home. I have planned to hold this as she seems to be somewhat dehydrated. 6. Chronic pain. Plan to hold amitriptyline and baclofen given the altered mental status. 7. Code status is full code. ADDENDUM: Patient re-examined later in the evening and found to be alert and oriented x 3. She states that she remembers her daughter telling her that she was talking about seeing her . She remembers having jerking movements and not being able to hold a glass of water. On exam, the only abnormal finding is a persistent intermittent large jerk to the left upper extremity when performing intentional movements such as finger to nose. Again, +5 strength in the extremity. No pronator drift. She denies pain in the arm or shoulder but she does seem reluctant to use the arm; she indicates this is because of the intermittent jerking and unreliability of that arm. TIME SPENT: Approximately 60 minutes were spent on the admission of this patient, more than half the time spent with the patient at the bedside reviewing the events leading up to this hospitalization, performing the physical examination, and reviewing my plan of care. OPAL STRONG NP [id number]/[facility] #: [id number] NABILA
[2018-05-24 07:43] LABS: ABS Basophils 0.1 10^3/ul (0-0.2); ABS Eosinophils 0.1 10^3/ul (0-0.6); ABS Lymphocytes 2.2 10^3/ul (1.0-4.8); ABS Monocytes 0.9 10^3/ul (0-0.8); ABS Neutrophils 6.4 10^3/ul (1.5-7.7); ABS Nucleated RBC 0 10^3/ul; Eosinophil % 1.4 %; Hematocrit 28 % (35-47); Hemoglobin 8.4 g/dl (12.0-16.0); Lymphocyte % 22.3 %; Mean Corpuscular HGB Conc 31 g/dl (31-36); Mean Corpuscular Hemoglobin 25 pg (27-31); Mean Corpuscular Volume 83 fL (80-97); Mean Platelet Volume 8.5 fL (7.4-10.4); Nucleated Red Blood Cells % 0.2; Platelet Count 143 10^3/ul (150-450); Red Blood Count 3.34 10^6/ul (4.00-5.40); Red Cell Distribution Width 22 % (10.5-15); White Blood Count 9.7 10^3/ul (3.5-10.8)
[2018-05-24 07:54] LABS: BUN/Creatinine Ratio 25.9 (8-20); Calcium 8.4 mg/dL (8.6-10.3); EGFR Non-African American 46.1 (>60)
[2018-05-24] MEDS: Aspirin EC TAB* 81 MG TAB.EC PO SCH (09:46)
[2018-05-24] MEDS: Folic Acid TAB* 1 MG PO SCH (09:46)
[2018-05-24] MEDS: Omeprazole CAP* 20 MG PO SCH (09:46)
[2018-05-24] MEDS: Digoxin TAB* 0.125 MG PO SCH (09:46)
[2018-05-24] MEDS: Apixaban* 5 MG TAB PO SCH ×2 (09:46→21:08)
[2018-05-24] MEDS: Diltiazem CD CAP* 180 MG PO SCH (09:46)
[2018-05-24] MEDS: Metoprolol Succinate XL TAB* 50 MG PO SCH (09:47)
[2018-05-24] MEDS: Fluticasone NASAL SPRAY 50MCG* 16 gm SPRAY BTL BOTH NARES SCH (09:47)
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
[2018-05-24 16:52] LABS: Folate > 20.00 ng/mL (>3.99)
[2018-05-24] MEDS: Acetaminophen TAB* 325 MG PO PRN (17:00)
[2018-05-24] MEDS: Atorvastatin* 80 MG TAB PO SCH (17:02)
[2018-05-24] MEDS: Lidocaine PATCH 5%* 1 PATCH TRANSDERM SCH (17:04)
--- NOTE | 2018-05-24 17:11 | PN ---
Subjective Date of Service: 05/24/18 Interval History: Patient seen, confused, difficult to examine. No apparent distress, had EEG completed, not eligible for MRI 2/2 PM. Objective Active Medications: Acetaminophen (Tylenol Tab*) 650 mg PO Q6H PRN PRN Reason: HEADACHE/DISCOMFORT Apixaban (Eliquis*) 5 mg PO BID [facility] Last Admin: 05/24/18 09:46 Dose: 5 mg Aspirin (Aspirin Ec Tab*) 81 mg PO DAILY [facility] Last Admin: 05/24/18 09:46 Dose: 81 mg Atorvastatin Calcium (Lipitor*) 80 mg PO 1700 [facility] Digoxin (Lanoxin Tab*) 0.125 mg PO DAILY [facility] Last Admin: 05/24/18 09:46 Dose: 0.125 mg Diltiazem HCl (Cardizem Cd Cap*) 360 mg PO DAILY [facility] Last Admin: 05/24/18 09:46 Dose: 360 mg Fluticasone Propionate (Flonase Nasal [place] 50mcg*) 1 spray BOTH NARES DAILY [facility] Last Admin: 05/24/18 09:47 Dose: 1 spray Folic Acid (Folvite Tab*) 1 mg PO DAILY [facility] Last Admin: 05/24/18 09:46 Dose: 1 mg Lidocaine (Lidoderm 5% Patch*) 1 patch TRANSDERM DAILY [facility] Metoprolol Succinate (Toprol Xl Tab*) 150 mg PO DAILY [facility] Last Admin: 05/24/18 09:47 Dose: 150 mg Omeprazole (Prilosec Cap*) 20 mg PO DAILY [facility] Last Admin: 05/24/18 09:46 Dose: 20 mg Pharmacy Profile Note (Lidocaine Patch Remove*) 1 note N/A 2100 [facility] Vital Signs - 8 hr 05/24/18 05/24/18 05/24/18 09:46 11:07 15:32 Temperature 98.2 F 99.0 F Pulse Rate 140 72 72 Respiratory 17 16 Rate Blood Pressure 153/61 127/51 (mmHg) O2 Sat by Pulse 100 97 Oximetry Oxygen Devices in Use Now: None Appearance: alert, pleasant, confused Eyes: No Scleral Icterus, PERRLA Ears/Nose/Mouth/Throat: NL Teeth, Lips, Gums, Mucous Membranes Moist Neck: NL Appearance and Movements; NL JVP, Trachea Midline Respiratory: Symmetrical Chest Expansion and Respiratory Effort, Clear to Auscultation Cardiovascular: NL Sounds; No Murmurs; No JVD, RRR Abdominal: NL Sounds; No Tenderness; No Distention Extremities: No Edema, No Clubbing, Cyanosis Skin: No Rash or Ulcers Neurological: - - confused, requires frequent reorientation Nutrition: Taking PO's Result Diagrams: 05/24/18 07:30 05/24/18 07:30 Microbiology and Other Data: Microbiology 05/23/18 21:13 Urine Culture - Final Urine No Growth (<1,000 CFU/mL) Assess/Plan/Problems-Billing Assessment: This is a 72 year old female patient with history of some forgetfulness at home that presented to ER with acute AMS. - Patient Problems (1) Altered mental status Code(s): R41.82 - ALTERED MENTAL STATUS, UNSPECIFIED SNOMED Code(s): 233339309 Comment: - CT head negative, cultures negative - Neurology consult appreciated - Repeat CT tomorrow, as patient unable to have MRI 2/2 pacemaker - Follow EEG results (2) History of CVA (cerebrovascular accident) Code(s): Z86.73 - PRSNL HX OF TIA (TIA), AND CEREB INFRC W/O RESID DEFICITS SNOMED Code(s): 481207806 Comment: - Continue asa and statin and eliquis (3) Unsteady gait Code(s): R26.81 - UNSTEADINESS ON FEET SNOMED Code(s): 76623182 Comment: - No new infarct on yesterday's CT - Has history of degerative spinal disease and stenosis - PT eval (4) Chronic kidney disease, stage 3 Code(s): N18.3 - CHRONIC KIDNEY DISEASE, STAGE 3 (MODERATE) SNOMED Code(s): 612068837 Comment: - At baseline (5) Atrial fibrillation Code(s): I48.91 - UNSPECIFIED ATRIAL FIBRILLATION SNOMED Code(s): 63178486 Comment: - Eliquis, diltiazem, metoprolol - Stable, rate controlled (6) DVT prophylaxis Code(s): ZOH8808 - SNOMED Code(s): 759497455 Comment: - On eliquis (7) Full code status Code(s): Z78.9 - OTHER SPECIFIED HEALTH STATUS SNOMED Code(s): 164254554 Status and Disposition: Inpatient, follow CT in AM, dispo TBD
[2018-05-24] MEDS: Lidocaine Patch REMOVE* 1 NOTE MISC SCH (21:12)
[2018-05-25] MEDS: Acetaminophen TAB* 325 MG PO PRN ×4 (00:54→20:50)
[2018-05-25] MEDS: Lidocaine PATCH 5%* 1 PATCH TRANSDERM SCH (08:25)
[2018-05-25] MEDS: Apixaban* 5 MG TAB PO SCH ×2 (08:27→20:50)
[2018-05-25] MEDS: Diltiazem CD CAP* 180 MG PO SCH (08:27)
[2018-05-25] MEDS: Aspirin EC TAB* 81 MG TAB.EC PO SCH (08:27)
[2018-05-25] MEDS: Folic Acid TAB* 1 MG PO SCH (08:28)
[2018-05-25] MEDS: Fluticasone NASAL SPRAY 50MCG* 16 gm SPRAY BTL BOTH NARES SCH (08:28)
[2018-05-25] MEDS: Metoprolol Succinate XL TAB* 50 MG PO SCH (08:28)
[2018-05-25] MEDS: Omeprazole CAP* 20 MG PO SCH (08:28)
[2018-05-25] MEDS: Digoxin TAB* 0.125 MG PO SCH (08:28)
[2018-05-25] MEDS: Atorvastatin* 80 MG TAB PO SCH (17:31)
--- NOTE | 2018-05-25 18:26 | PN ---
Subjective Date of Service: 05/25/18 Interval History: Patient seen and examined. Dr. Pro at bedside for follow up. Patient appears more lucid today, complaints of spine "aches and pains", denies SOB, no chest pain, no dizziness. Objective Active Medications: Acetaminophen (Tylenol Tab*) 650 mg PO Q6H PRN PRN Reason: HEADACHE/DISCOMFORT Last Admin: 05/25/18 14:28 Dose: 650 mg Apixaban (Eliquis*) 5 mg PO BID [facility] Last Admin: 05/25/18 08:27 Dose: 5 mg Aspirin (Aspirin Ec Tab*) 81 mg PO DAILY [facility] Last Admin: 05/25/18 08:27 Dose: 81 mg Atorvastatin Calcium (Lipitor*) 80 mg PO 1700 [facility] Last Admin: 05/25/18 17:31 Dose: 80 mg Baclofen (Lioresal Tab*) 10 mg PO DAILY [facility] Digoxin (Lanoxin Tab*) 0.125 mg PO DAILY [facility] Last Admin: 05/25/18 08:28 Dose: 0.125 mg Diltiazem HCl (Cardizem Cd Cap*) 360 mg PO DAILY [facility] Last Admin: 05/25/18 08:27 Dose: 360 mg Fluticasone Propionate (Flonase Nasal [place] 50mcg*) 1 spray BOTH NARES DAILY [facility] Last Admin: 05/25/18 08:28 Dose: 1 spray Folic Acid (Folvite Tab*) 1 mg PO DAILY [facility] Last Admin: 05/25/18 08:28 Dose: 1 mg Lidocaine (Lidoderm 5% Patch*) 1 patch TRANSDERM DAILY [facility] Last Admin: 05/25/18 08:25 Dose: 1 patch Metoprolol Succinate (Toprol Xl Tab*) 150 mg PO DAILY [facility] Last Admin: 05/25/18 08:28 Dose: 150 mg Non-Formulary Medication (Torsemide [Torsemide]) 5 mg PO DAILY [facility] Omeprazole (Prilosec Cap*) 20 mg PO DAILY [facility] Last Admin: 05/25/18 08:28 Dose: 20 mg Pharmacy Profile Note (Lidocaine Patch Remove*) 1 note N/A 2100 [facility] Last Admin: 05/24/18 21:12 Dose: 1 note Oxygen Devices in Use Now: None Appearance: alert, frail, comfortable Eyes: No Scleral Icterus, PERRLA Ears/Nose/Mouth/Throat: NL Teeth, Lips, Gums, Mucous Membranes Moist Neck: NL Appearance and Movements; NL JVP, Trachea Midline Respiratory: Symmetrical Chest Expansion and Respiratory Effort, - - diminished breath sounds, no rales or rhonchi Cardiovascular: NL Sounds; No Murmurs; No JVD, RRR Abdominal: NL Sounds; No Tenderness; No Distention Extremities: No Clubbing, Cyanosis Skin: No Rash or Ulcers Neurological: Alert and Oriented x 3, - - unsteady gait Nutrition: Taking PO's Result Diagrams: 05/24/18 07:30 05/24/18 07:30 Microbiology and Other Data: Microbiology 05/23/18 21:13 Urine Culture - Final Urine No Growth (<1,000 CFU/mL) Assess/Plan/Problems-Billing Assessment: This is a 72 year old female patient with history of some forgetfulness at home that presented to ER with acute AMS. - Patient Problems (1) Altered mental status Code(s): R41.82 - ALTERED MENTAL STATUS, UNSPECIFIED SNOMED Code(s): 384305869 Comment: - CT head negative, cultures negative - Neurology following - EEG with no epileptiform changes, repeat CT with no new pathology - Concern for polypharmacy and/or vascular dementia with episodes of acute delerium - Supportive care (2) History of CVA (cerebrovascular accident) Code(s): Z86.73 - PRSNL HX OF TIA (TIA), AND CEREB INFRC W/O RESID DEFICITS SNOMED Code(s): 065411604 Comment: - Continue asa and statin and eliquis - No new stroke on CT (3) Unsteady gait Code(s): R26.81 - UNSTEADINESS ON FEET SNOMED Code(s): 57614279 Comment: - No new infarct on initial or repeat CTs - Has history of degerative spinal disease and stenosis - PT eval - Slowly reintroduce baclofen, amitriptyline for discomfort (4) Chronic kidney disease, stage 3 Code(s): N18.3 - CHRONIC KIDNEY DISEASE, STAGE 3 (MODERATE) SNOMED Code(s): 612824241 Comment: - At baseline (5) Atrial fibrillation Code(s): I48.91 - UNSPECIFIED ATRIAL FIBRILLATION SNOMED Code(s): 98612262 Comment: - Eliquis, diltiazem, metoprolol - Stable, rate controlled - Restart torsemide in AM (6) DVT prophylaxis Code(s): JBM2809 - SNOMED Code(s): 473158857 Comment: - On eliquis (7) Full code status Code(s): Z78.9 - OTHER SPECIFIED HEALTH STATUS SNOMED Code(s): 787569300 Status and Disposition: Inpatient. Plan for STR when bed available, will need close outpatient follow up and fdc housing planning.
[2018-05-25] MEDS: Baclofen TAB* 10 MG PO SCH (18:33)
[2018-05-25] MEDS: Amitriptyline TAB* 25 MG PO SCH (20:50)
[2018-05-25] MEDS: Lidocaine Patch REMOVE* 1 NOTE MISC SCH (20:52)
[2018-05-26] MEDS: Baclofen TAB* 10 MG PO PRN ×3 (01:12→13:02)
[2018-05-26] MEDS: Acetaminophen TAB* 325 MG PO PRN (05:29)
--- NOTE | 2018-05-26 06:49 | PN ---
PROGRESS NOTE: DATE OF SERVICE: 05/25/18. HISTORY: Mrs. Villarreal is a 72-year-old woman who is admitted with change in mental status with increased fall, some confusion as well as hallucinations reported to Dr. Gage who saw her in consultation yesterday, 05/24/18. This occurs in the setting with known history of atrial fibrillation with previous right posterior parietal strokes on Eliquis, aspirin and atorvastatin, hypertension, fibromyalgia, coronary artery disease with previous CABG, mitral valve replacement for porcine valve, anxiety, depression, difficult home situation requiring social work in the past, and known history of hallucinations at previous times. Patient on today's visit indicates she does not have hallucinations, but talks to her on a regular basis and knows that he is . She has quite comfort regarding interactions with her daughter. However, within the time during the visit changed from stating that she wanted to live in another place away from her daughter, to the fact that she did not want to leave her daughter. The care team has filled me in on some variability in the past in her histories, previous hallucinations outside of her such as seeing things that do not exist. Overall, she has done better since she was admitted. Dr. Gage suggested stopping both tricyclic antidepressants as well as Baclofen. She has had repeat CT brains both of which were reviewed directly and no change was noted. She had an EEG, and I reviewed this directly and I did not appreciate any epileptiform activity. PHYSICAL EXAMINATION: On examination, her temperature was 98.5 degrees Fahrenheit, heart rate was 78, respiratory rate 18, saturation 99%, blood pressure 152/56. She had an irregularly irregular rhythm. Her lungs are clear to auscultation. There was no peripheral edema. It was hard to feel her peripheral pulses in her feet. Her feet were cool. There was capillary refill noted. No petechiae were noted. She was awake and alert. She knew the date, who the president was, where she was located. She was able to name 3 words immediately and later on recall. She had difficulty with attention spelling the word "world" backwards, and difficulty when trying to name the months backwards; she could only name 7 words starting with a letter F's in 1 minute. She had pupils that were equal and responsive to light, her fundi were flat. She had full extraocular movements. There was a left homonymous hemianopsia. Her facial expressions, sensation, and hearing were symmetric. Palate was upgoing, tongue was midline. Sternocleidomastoid and trapezius were 5/5 in strength. There was normal bulk and tone. No pronator drift. She gave full strength in her upper and lower extremities. There was no asymmetry to pinprick , cold, or light touch. Vibration sensation was absent in the large toes, decreased at the ankles by 15 to 20 seconds. The reflexes were 2+ in the upper extremity, 2+ at the knees, 1+ at the ankles, toes are flexor response. She was able to walk on her own with a walker. With the examiner at her side, she did a tight turn in the room without any difficulty, taking her time with increased steps. DIAGNOSTIC STUDIES/LAB DATA: Ammonia level 32, her white count was 7.9, hemoglobin and hematocrit were low as noted on admission. Platelets are 143. A chronic anemia has been noted and intermittent low platelet count. Her BUN and creatinine ratio was elevated with a creatinine of 1.16, B12 was 240 with elevated folate greater than 20, TSH was normal at 1.39, C-reactive protein was 4.4. She has had elevated troponins which we have been noted chronically. Her total protein was low at 6.1. Her urinalysis on admission showed 1+ protein, negative esterase, negative nitrite. Her CT of the brain does show previous cortical right parietal stroke, but no new lesions were noted. There was some periventricular hyperdensity consistent with small vessel ischemic disease in my review. I reviewed the film directly and compared to previous; radiology report was reviewed indicating no acute finding and no change. CURRENT MEDICATIONS: Include, 1. Acetaminophen 650 mg p.o. q.6 hours p.r.n. headache or discomfort. 2. Eliquis 5 mg p.o. b.i.d. 3. Aspirin 81 mg p.o. daily. 4. Digoxin 0.125 mg p.o. daily. 5. Diltiazem CD 360 mg p.o. daily. 6. Fluticasone nasal spray 1 spray both naris daily. 7. Folate 1 mg p.o. daily. 8. Metoprolol XL 150 mg p.o. daily. 9. Omeprazole 20 mg p.o. daily. 10. Lipitor 80 mg p.o. daily. 11. Lidocaine patch 5% transdermal daily for 12 hours. IMPRESSION: A 72-year-old woman admitted with increased confusion and falls. She is now better with stopping tricyclic antidepressant and Baclofen as well as time. Her exam is significant for decreased attention, changing statements of desires to the absolute opposite desire within the visit, left homonymous hemianopsia and pressured speech at times. One must question delirium in the setting of poor baseline with vascular injury. There are some aspects of a cognitive testing that she did quite well, and others in which she had more difficulty. Certainly, this could be consistent with previous vascular injury. Superimposed may be difficulty with medications and polypharmacy. I agree with reduction of medications. Ideally, she would do best with supportive care and someone taking care of her medications. There has been issues reported in the past regarding her home, and further social work input will be needed. Hospitalist team indicated that they are working on short-term rehab stay and further placement according to need. Given her low normal B12, I will check a methylmalonic acid level and homocysteine level and consider B12 injections or oral supplementation. She may need further neurologic input as an outpatient depending on clinical course. TIME SPENT: Over 45 minutes was spent in direct [id number] patient care in addition to reviewing the chart and education was given to the patient regarding her results of her workup to-date and the medical plan. Case discussed with hospitalist team, testing of methylmalonic acid and homocysteine level was discussed, and they are to call if further neurologic input is needed. [id number]/[facility] #: [id number] [facility]
[2018-05-26] MEDS: Metoprolol Succinate XL TAB* 50 MG PO SCH (09:11)
[2018-05-26] MEDS: Fluticasone NASAL SPRAY 50MCG* 16 gm SPRAY BTL BOTH NARES SCH (09:11)
[2018-05-26] MEDS: Apixaban* 5 MG TAB PO SCH ×2 (09:12→20:55)
[2018-05-26] MEDS: Diltiazem CD CAP* 180 MG PO SCH (09:12)
[2018-05-26] MEDS: Omeprazole CAP* 20 MG PO SCH (09:12)
[2018-05-26] MEDS: Baclofen TAB* 10 MG PO SCH (09:13)
[2018-05-26] MEDS: Amitriptyline TAB* 25 MG PO SCH ×2 (09:13→20:56)
[2018-05-26] MEDS: Aspirin EC TAB* 81 MG TAB.EC PO SCH (09:13)
[2018-05-26] MEDS: Folic Acid TAB* 1 MG PO SCH (09:13)
[2018-05-26] MEDS: Lidocaine PATCH 5%* 1 PATCH TRANSDERM SCH (09:14)
[2018-05-26] MEDS: Torsemide TAB* 20 MG PO SCH (09:14)
[2018-05-26] MEDS: Digoxin TAB* 0.125 MG PO SCH (09:14)
--- NOTE | 2018-05-26 09:20 | EEG ---
ELECTROENCEPHALOGRAPHY: DATE OF STUDY: 05/24/18 - ROOM #418 CLINICAL PROBLEM: Ms. Villarreal is a 72-year-old right-handed woman admitted to hospital for change in mental status in the setting of having episodes of confusion, hallucinations, recurrent falls. She was reported to have some jerking movement when trying to drink water on 05/22/18. This occurs in the setting of a known history of unsteady gait, hypertension, atrial fibrillation, pacemaker, anxiety and depression. REPORT: This was a 16-channel EEG. In the beginning of the record, there was posterior dominant alpha rhythm of 9 Hz, which was symmetric. Intermittently, there was superimposed muscle artifact particularly when talking. As the record continued, the background rhythm remained symmetric. As the muscle artifact settled down, normal background rhythm was noted. There was no clear asymmetry of the background rhythm, there was no sharp or spike wave activity. At that time, it was questioned if the cardiac rhythm was irregular. CLINICAL IMPRESSION: This was a limited EEG. The EEG was limited by movement artifact. During the times the background rhythm could be observed, it was normal with no epileptiform activity. Of note, at times there was some irregularity to the EKG rhythm strip. [id number]/[facility] #: [id number] [facility]
[2018-05-26 09:46] LABS: ABS Basophils 0.1 10^3/ul (0-0.2); ABS Eosinophils 0.2 10^3/ul (0-0.6); ABS Lymphocytes 2.5 10^3/ul (1.0-4.8); ABS Monocytes 0.6 10^3/ul (0-0.8); ABS Neutrophils 7.2 10^3/ul (1.5-7.7); ABS Nucleated RBC 0 10^3/ul; Eosinophil % 1.7 %; Hematocrit 31 % (35-47); Hemoglobin 9.4 g/dl (12.0-16.0); Lymphocyte % 23.7 %; Mean Corpuscular HGB Conc 30 g/dl (31-36); Mean Corpuscular Hemoglobin 25 pg (27-31); Mean Corpuscular Volume 83 fL (80-97); Mean Platelet Volume 9.1 fL (7.4-10.4); Nucleated Red Blood Cells % 0; Platelet Count 157 10^3/ul (150-450); Red Blood Count 3.74 10^6/ul (4.00-5.40); Red Cell Distribution Width 22 % (10.5-15); White Blood Count 10.6 10^3/ul (3.5-10.8)
--- NOTE | 2018-05-26 09:48 | PN ---
Subjective Date of Service: 05/26/18 Interval History: Patient sitting up in a chair feeding herself. She wants to go home and doesnt think she needs rehab. She answers some questions appropriately such as where she is but is not able to tell me why she is hospitalized and why rehab is recommended, instead she changes the subject. She denies pain. She reports she has a good appetite and "loves" the food here. Objective Active Medications: Acetaminophen (Tylenol Tab*) 650 mg PO Q6H PRN PRN Reason: HEADACHE/DISCOMFORT Last Admin: 05/26/18 05:29 Dose: 650 mg Amitriptyline HCl (Elavil Tab*) 25 mg PO BID [facility] Last Admin: 05/26/18 09:13 Dose: 25 mg Apixaban (Eliquis*) 5 mg PO BID [facility] Last Admin: 05/26/18 09:12 Dose: 5 mg Aspirin (Aspirin Ec Tab*) 81 mg PO DAILY [facility] Last Admin: 05/26/18 09:13 Dose: 81 mg Atorvastatin Calcium (Lipitor*) 80 mg PO 1700 [facility] Last Admin: 05/25/18 17:31 Dose: 80 mg Baclofen (Lioresal Tab*) 10 mg PO DAILY [facility] Last Admin: 05/26/18 09:13 Dose: 10 mg Baclofen (Lioresal Tab*) 5 mg PO TID PRN PRN Reason: pain Last Admin: 05/26/18 01:13 Dose: 5 mg Digoxin (Lanoxin Tab*) 0.125 mg PO DAILY [facility] Last Admin: 05/26/18 09:14 Dose: 0.125 mg Diltiazem HCl (Cardizem Cd Cap*) 360 mg PO DAILY [facility] Last Admin: 05/26/18 09:12 Dose: 360 mg Fluticasone Propionate (Flonase Nasal [place] 50mcg*) 1 spray BOTH NARES DAILY [facility] Last Admin: 05/26/18 09:11 Dose: 1 spray Folic Acid (Folvite Tab*) 1 mg PO DAILY [facility] Last Admin: 05/26/18 09:13 Dose: 1 mg Lidocaine (Lidoderm 5% Patch*) 1 patch TRANSDERM DAILY [facility] Last Admin: 05/26/18 09:14 Dose: 1 patch Metoprolol Succinate (Toprol Xl Tab*) 150 mg PO DAILY [facility] Last Admin: 05/26/18 09:11 Dose: 150 mg Omeprazole (Prilosec Cap*) 20 mg PO DAILY [facility] Last Admin: 05/26/18 09:12 Dose: 20 mg Pharmacy Profile Note (Lidocaine Patch Remove*) 1 note N/A 2100 [facility] Last Admin: 05/25/18 20:52 Dose: 1 note Torsemide (Demadex*) 5 mg PO DAILY [facility] Last Admin: 05/26/18 09:14 Dose: 5 mg Vital Signs - 8 hr 05/26/18 05/26/18 05:17 08:26 Temperature 98.4 F 98.0 F Pulse Rate 66 74 Respiratory 16 Rate Blood Pressure 183/62 165/58 (mmHg) O2 Sat by Pulse 100 98 Oximetry Oxygen Devices in Use Now: None Appearance: 72 yo female sitting up in a chair in NAD, alert to self and place, noted confusion but answers some questions appropriately Eyes: No Scleral Icterus, PERRLA Ears/Nose/Mouth/Throat: NL Teeth, Lips, Gums, Mucous Membranes Moist Respiratory: Symmetrical Chest Expansion and Respiratory Effort, Clear to Auscultation Cardiovascular: No Edema, - - ireregularly irregular Abdominal: NL Sounds; No Tenderness; No Distention Extremities: No Edema, No Clubbing, Cyanosis Skin: No Rash or Ulcers Neurological: Alert and Oriented x 3, NL Sensation, NL Gait, NL Muscle Strength and Tone Lines/Tubes/Other Access: Clean, Dry and Intact Peripheral IV Nutrition: Taking PO's Result Diagrams: 05/26/18 09:05 05/26/18 09:05 Microbiology and Other Data: Microbiology 05/23/18 21:13 Urine Culture - Final Urine No Growth (<1,000 CFU/mL) Assess/Plan/Problems-Billing Assessment: This is a 72 year old female patient with history of some forgetfulness at home that presented to ER with acute AMS. - Patient Problems (1) Altered mental status Comment: - improving - CT head negative, cultures negative - Neurology following - EEG with no epileptiform changes, repeat CT with no new pathology - Concern for polypharmacy and/or vascular dementia with episodes of acute delerium - Supportive care (2) Atrial fibrillation SNOMED Code(s): 33397046 Comment: - afib/aflutter - rapid rate this am for approx 1 hour of HR 140's - pt was asymptomatic - resolved with home meds, rate controlled at baseline - Eliquis, diltiazem, metoprolol, digoxin - torsemide restarted today (3) Unsteady gait Comment: - No new infarct on initial or repeat CTs - Has history of degerative spinal disease and stenosis - PT eval - Slowly reintroduce baclofen, amitriptyline for discomfort - will require subacute rehab (4) Chronic kidney disease, stage 3 Comment: - At baseline (5) Full code status (6) DVT prophylaxis Comment: - On eliquis Status and Disposition: Inpatient. 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
[2018-05-26 09:57] LABS: Albumin 3.3 g/dL (3.2-5.2); Albumin/Globulin Ratio 1.3 (1-3); BUN/Creatinine Ratio 28.3 (8-20); Calcium 8.7 mg/dL (8.6-10.3); EGFR Non-African American 51.1 (>60); Globulin 2.5 g/dL (2-4); Potassium 4.5 mmol/L (3.5-5.0); Total Bilirubin 0.2 mg/dL (0.2-1.0); Total Protein 5.8 g/dL (6.4-8.9)
[2018-05-26 11:13] LABS: Magnesium 2.3 mg/dL (1.9-2.7)
[2018-05-26] MEDS: Atorvastatin* 80 MG TAB PO SCH (17:13)
[2018-05-26] MEDS: Lidocaine Patch REMOVE* 1 NOTE MISC SCH (21:13)
[2018-05-27] MEDS: Baclofen TAB* 10 MG PO PRN ×3 (03:26→17:06)
[2018-05-27] MEDS: Acetaminophen TAB* 325 MG PO PRN ×3 (03:26→17:04)
[2018-05-27] MEDS ORDERED: Metoprolol Tartrate IV* 1 MG/ML 5 ML VIAL IV ONE (09:30)
--- NOTE | 2018-05-27 09:33 | PN ---
Subjective Date of Service: 05/27/18 Interval History: pt reports she does not feel her tachycardia - denies dizziness/ lightheadedness. She reports she take her am meds around 8 am. She offers no complaints this am. Objective Active Medications: Acetaminophen (Tylenol Tab*) 650 mg PO Q6H PRN PRN Reason: HEADACHE/DISCOMFORT Last Admin: 05/27/18 03:26 Dose: 650 mg Amitriptyline HCl (Elavil Tab*) 25 mg PO BID [facility] Last Admin: 05/26/18 20:56 Dose: 25 mg Apixaban (Eliquis*) 5 mg PO BID [facility] Last Admin: 05/26/18 20:55 Dose: 5 mg Aspirin (Aspirin Ec Tab*) 81 mg PO DAILY [facility] Last Admin: 05/26/18 09:13 Dose: 81 mg Atorvastatin Calcium (Lipitor*) 80 mg PO 1700 [facility] Last Admin: 05/26/18 17:13 Dose: 80 mg Baclofen (Lioresal Tab*) 10 mg PO DAILY [facility] Last Admin: 05/26/18 09:13 Dose: 10 mg Baclofen (Lioresal Tab*) 5 mg PO TID PRN PRN Reason: pain Last Admin: 05/27/18 03:26 Dose: 5 mg Digoxin (Lanoxin Tab*) 0.125 mg PO DAILY [facility] Last Admin: 05/26/18 09:14 Dose: 0.125 mg Diltiazem HCl (Cardizem Cd Cap*) 360 mg PO DAILY [facility] Last Admin: 05/26/18 09:12 Dose: 360 mg Fluticasone Propionate (Flonase Nasal [place] 50mcg*) 1 spray BOTH NARES DAILY [facility] Last Admin: 05/26/18 09:11 Dose: 1 spray Folic Acid (Folvite Tab*) 1 mg PO DAILY [facility] Last Admin: 05/26/18 09:13 Dose: 1 mg Lidocaine (Lidoderm 5% Patch*) 1 patch TRANSDERM DAILY [facility] Last Admin: 05/26/18 09:14 Dose: 1 patch Metoprolol Succinate (Toprol Xl Tab*) 150 mg PO DAILY [facility] Last Admin: 05/26/18 09:11 Dose: 150 mg Metoprolol Tartrate (Lopressor Iv*) 5 mg IV ONCE ONE Stop: 05/27/18 09:31 Omeprazole (Prilosec Cap*) 20 mg PO DAILY [facility] Last Admin: 05/26/18 09:12 Dose: 20 mg Pharmacy Profile Note (Lidocaine Patch Remove*) 1 note N/A 2100 [facility] Last Admin: 05/26/18 21:13 Dose: 1 note Torsemide (Demadex*) 5 mg PO DAILY [facility] Last Admin: 05/26/18 09:14 Dose: 5 mg Vital Signs - 8 hr 05/27/18 05/27/18 03:11 03:22 Temperature 98.9 F Pulse Rate 72 Respiratory 24 Rate Blood Pressure 182/63 175/60 (mmHg) O2 Sat by Pulse 100 Oximetry Oxygen Devices in Use Now: None Appearance: 72 yo female A+O in nAD Eyes: No Scleral Icterus, PERRLA Ears/Nose/Mouth/Throat: NL Teeth, Lips, Gums, Mucous Membranes Moist Neck: NL Appearance and Movements; NL JVP Respiratory: Symmetrical Chest Expansion and Respiratory Effort, Clear to Auscultation Cardiovascular: No Edema, - - tachycardia Abdominal: NL Sounds; No Tenderness; No Distention Extremities: No Edema, No Clubbing, Cyanosis Skin: No Rash or Ulcers, No Nodules or Sclerosis Neurological: Alert and Oriented x 3, NL Sensation, NL Gait, NL Muscle Strength and Tone Lines/Tubes/Other Access: Clean, Dry and Intact Peripheral IV Nutrition: Taking PO's Result Diagrams: 05/26/18 09:05 05/26/18 09:05 Microbiology and Other Data: Microbiology 05/23/18 21:13 Urine Culture - Final Urine No Growth (<1,000 CFU/mL) Assess/Plan/Problems-Billing Assessment: This is a 72 year old female patient with history of some forgetfulness at home that presented to ER with acute AMS. - Patient Problems (1) Altered mental status Comment: - improving - CT head negative, cultures negative - Neurology following - EEG with no epileptiform changes, repeat CT with no new pathology - Concern for polypharmacy and/or vascular dementia with episodes of acute delerium - Supportive care (2) Atrial fibrillation SNOMED Code(s): 30256254 Comment: - afib/aflutter - rapid rate this am HR 150's aroung 9am- pt iss asymptomatic - did this yesterday amd resolved with home medications -pt takes am meds around 8am, plan to reschedule meds for earlier. Plan to give 5 mg IV metoprolol x1 now - and give am medications. Rate controlled at baseline - Eliquis, diltiazem, metoprolol, digoxin, torsemide (3) Unsteady gait Comment: - No new infarct on initial or repeat CTs - Has history of degerative spinal disease and stenosis - PT following - Slowly reintroduce baclofen, amitriptyline for discomfort - will require subacute rehab (4) Chronic kidney disease, stage 3 Comment: - At baseline (5) Full code status (6) DVT prophylaxis Comment: - On eliquis Status and Disposition: Inpatient. 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
[2018-05-27] MEDS: Diltiazem CD CAP* 180 MG PO SCH (09:39)
[2018-05-27] MEDS: Fluticasone NASAL SPRAY 50MCG* 16 gm SPRAY BTL BOTH NARES SCH (09:39)
[2018-05-27] MEDS: Metoprolol Succinate XL TAB* 50 MG PO SCH (09:39)
[2018-05-27] MEDS: Amitriptyline TAB* 25 MG PO SCH ×2 (09:40→21:04)
[2018-05-27] MEDS: Digoxin TAB* 0.125 MG PO SCH (09:40)
[2018-05-27] MEDS: Baclofen TAB* 10 MG PO SCH (09:40)
[2018-05-27] MEDS: Apixaban* 5 MG TAB PO SCH (09:40)
[2018-05-27] MEDS: Omeprazole CAP* 20 MG PO SCH (09:40)
[2018-05-27] MEDS: Torsemide TAB* 20 MG PO SCH (09:40)
[2018-05-27] MEDS: Aspirin EC TAB* 81 MG TAB.EC PO SCH (09:41)
[2018-05-27] MEDS: Lidocaine PATCH 5%* 1 PATCH TRANSDERM SCH (09:41)
[2018-05-27] MEDS: Folic Acid TAB* 1 MG PO SCH (09:41)
[2018-05-27] MEDS: Atorvastatin* 80 MG TAB PO SCH (17:05)
[2018-05-28] MEDS: Baclofen TAB* 10 MG PO PRN ×2 (04:10→20:10)
[2018-05-28] MEDS: Acetaminophen TAB* 325 MG PO PRN ×3 (04:10→20:43)
[2018-05-28] MEDS: Lidocaine Patch REMOVE* 1 NOTE MISC SCH ×2 (04:28→20:12)
[2018-05-28] MEDS: Lidocaine PATCH 5%* 1 PATCH TRANSDERM SCH (09:08)
[2018-05-28] MEDS: Torsemide TAB* 20 MG PO SCH ×2 (09:10→09:27)
[2018-05-28] MEDS: Apixaban* 5 MG TAB PO SCH ×3 (09:14→20:09)
[2018-05-28] MEDS: Diltiazem CD CAP* 180 MG PO SCH ×2 (09:15→09:27)
[2018-05-28] MEDS: Digoxin TAB* 0.125 MG PO SCH ×2 (09:15→09:26)
[2018-05-28] MEDS: Omeprazole CAP* 20 MG PO SCH (09:15)
[2018-05-28] MEDS: Baclofen TAB* 10 MG PO SCH (09:15)
[2018-05-28] MEDS: Amitriptyline TAB* 25 MG PO SCH ×2 (09:19→20:09)
[2018-05-28] MEDS: Folic Acid TAB* 1 MG PO SCH (09:20)
[2018-05-28] MEDS: Metoprolol Succinate XL TAB* 50 MG PO SCH ×2 (09:20→09:27)
[2018-05-28] MEDS: Aspirin EC TAB* 81 MG TAB.EC PO SCH ×2 (09:21→09:26)
--- NOTE | 2018-05-28 09:36 | PN ---
Subjective Date of Service: 05/28/18 Interval History: pt would like to take a shower. She is upset because we have cut back on some of her home medications - stating she is "crazy" without her correct doses which is able to tell me what she normally takes. She reports she is in the hospital because she had "food poisoning" but is not able to tell me what she means and gives a story that is hard to follow. Objective Active Medications: Acetaminophen (Tylenol Tab*) 650 mg PO Q6H PRN PRN Reason: HEADACHE/DISCOMFORT Last Admin: 05/28/18 04:10 Dose: 650 mg Amitriptyline HCl (Elavil Tab*) 25 mg PO BID [facility] Last Admin: 05/28/18 09:19 Dose: 25 mg Apixaban (Eliquis*) 5 mg PO BID [facility] Last Admin: 05/28/18 09:26 Dose: Not Given Aspirin (Aspirin Ec Tab*) 81 mg PO DAILY [facility] Last Admin: 05/28/18 09:26 Dose: Not Given Atorvastatin Calcium (Lipitor*) 80 mg PO 1700 [facility] Last Admin: 05/27/18 17:05 Dose: 80 mg Baclofen (Lioresal Tab*) 10 mg PO DAILY [facility] Last Admin: 05/28/18 09:15 Dose: 10 mg Baclofen (Lioresal Tab*) 5 mg PO TID PRN PRN Reason: pain Last Admin: 05/28/18 04:10 Dose: 5 mg Digoxin (Lanoxin Tab*) 0.125 mg PO DAILY [facility] Last Admin: 05/28/18 09:26 Dose: Not Given Diltiazem HCl (Cardizem Cd Cap*) 360 mg PO DAILY [facility] Last Admin: 05/28/18 09:27 Dose: Not Given Fluticasone Propionate (Flonase Nasal [place] 50mcg*) 1 spray BOTH NARES DAILY [facility] Last Admin: 05/27/18 09:39 Dose: 1 spray Folic Acid (Folvite Tab*) 1 mg PO DAILY [facility] Last Admin: 05/28/18 09:20 Dose: 1 mg Lidocaine (Lidoderm 5% Patch*) 1 patch TRANSDERM DAILY [facility] Last Admin: 05/28/18 09:08 Dose: 1 patch Metoprolol Succinate (Toprol Xl Tab*) 150 mg PO DAILY [facility] Last Admin: 12/07/18 09:27 Dose: Not Given Metoprolol Tartrate (Lopressor Iv*) 2.5 mg IV ONCE ONE Stop: 05/28/18 09:41 Omeprazole (Prilosec Cap*) 20 mg PO DAILY [facility] Last Admin: 05/28/18 09:15 Dose: 20 mg Pharmacy Profile Note (Lidocaine Patch Remove*) 1 note N/A 2100 [facility] Last Admin: 05/28/18 04:28 Dose: 1 note Torsemide (Demadex*) 5 mg PO DAILY [facility] Last Admin: 05/28/18 09:27 Dose: Not Given Vital Signs - 8 hr 05/28/18 05/28/18 05/28/18 02:20 07:56 09:15 Temperature 98.2 F 97.4 F Pulse Rate 73 43 160 Respiratory 18 20 Rate Blood Pressure 149/60 190/63 (mmHg) O2 Sat by Pulse 97 100 Oximetry 05/28/18 09:23 Temperature Pulse Rate 160 Respiratory Rate Blood Pressure 176/88 (mmHg) O2 Sat by Pulse Oximetry Oxygen Devices in Use Now: None Appearance: 72 yo female A+ox3 in NAD, mild cognitive impairment noted Eyes: No Scleral Icterus, PERRLA Neck: NL Appearance and Movements; NL JVP Respiratory: Symmetrical Chest Expansion and Respiratory Effort, Clear to Auscultation Cardiovascular: NL Sounds; No Murmurs; No JVD, RRR, No Edema Abdominal: NL Sounds; No Tenderness; No Distention Extremities: No Edema, No Clubbing, Cyanosis Skin: No Rash or Ulcers, No Nodules or Sclerosis Neurological: Alert and Oriented x 3, NL Sensation, NL Muscle Strength and Tone Lines/Tubes/Other Access: Clean, Dry and Intact Peripheral IV Nutrition: Taking PO's Result Diagrams: 05/26/18 09:05 05/26/18 09:05 Microbiology and Other Data: Microbiology 05/23/18 21:13 Urine Culture - Final Urine No Growth (<1,000 CFU/mL) Assess/Plan/Problems-Billing Assessment: This is a 72 year old female patient with history of some forgetfulness at home that presented to ER with acute AMS. - Patient Problems (1) Altered mental status Comment: - improving - CT head negative, cultures negative - Neurology following - EEG with no epileptiform changes, repeat CT with no new pathology - Concern for polypharmacy and/or vascular dementia with episodes of acute delerium - Supportive care (2) Atrial fibrillation SNOMED Code(s): 80794025 Comment: - afib/aflutter - Rate controlled at baseline - discussed with nursing staff the importance of giving am meds on time - pt has everyday had runs of afib if her medications are given late - Eliquis, diltiazem, metoprolol, digoxin, torsemide (3) Unsteady gait Comment: - No new infarct on initial or repeat CTs - Has history of degerative spinal disease and stenosis - PT following - Slowly reintroduce baclofen, amitriptyline for discomfort - will require subacute rehab (4) Chronic kidney disease, stage 3 Comment: - At baseline (5) Full code status (6) DVT prophylaxis Comment: - On eliquis Status and Disposition: Inpatient. 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
[2018-05-28] MEDS ORDERED: Amitriptyline TAB* 25 MG PO ONE (09:37)
[2018-05-28] MEDS ORDERED: Metoprolol Tartrate IV* 1 MG/ML 5 ML VIAL ONE (09:39)
[2018-05-28] MEDS ORDERED: Metoprolol Tartrate IV* 1 MG/ML 5 ML VIAL IV ONE (09:40)
[2018-05-28] MEDS: Fluticasone NASAL SPRAY 50MCG* 16 gm SPRAY BTL BOTH NARES SCH (11:52)
[2018-05-28] MEDS ORDERED: oxyCODONE TAB* 5 MG TAB PO PRN (13:51)
[2018-05-28] MEDS: Atorvastatin* 80 MG TAB PO SCH (18:39)
[2018-05-29] MEDS: Acetaminophen TAB* 325 MG PO PRN ×3 (04:34→15:48)
[2018-05-29] MEDS: Baclofen TAB* 10 MG PO PRN ×3 (04:34→22:10)
[2018-05-29] MEDS: Metoprolol Succinate XL TAB* 50 MG PO SCH (08:03)
[2018-05-29] MEDS: Folic Acid TAB* 1 MG PO SCH (08:03)
[2018-05-29] MEDS: Aspirin EC TAB* 81 MG TAB.EC PO SCH (08:03)
[2018-05-29] MEDS: Torsemide TAB* 20 MG PO SCH (08:03)
[2018-05-29] MEDS: Digoxin TAB* 0.125 MG PO SCH (08:05)
[2018-05-29] MEDS: Diltiazem CD CAP* 180 MG PO SCH (08:05)
[2018-05-29] MEDS: Baclofen TAB* 10 MG PO SCH (08:05)
[2018-05-29] MEDS: Amitriptyline TAB* 25 MG PO SCH ×2 (08:06→22:03)
[2018-05-29] MEDS: Omeprazole CAP* 20 MG PO SCH (08:06)
[2018-05-29] MEDS: Apixaban* 5 MG TAB PO SCH ×2 (08:07→22:03)
[2018-05-29] MEDS: Lidocaine PATCH 5%* 1 PATCH TRANSDERM SCH (08:08)
[2018-05-29] MEDS: Fluticasone NASAL SPRAY 50MCG* 16 gm SPRAY BTL BOTH NARES SCH (09:25)
--- NOTE | 2018-05-29 14:28 | PN ---
Subjective Date of Service: 05/29/18 Interval History: patient sitting up in a chair feeding herself, A+Ox3. She is upset she cant go home. Pt is upset her home medications have been reduced. When trying to explain to the patient the suspicion and concern of polypharmacy she changes the conversation. She is refusing to go to rehab or [place] [facility] care and states she wants to go home. Today she offers no complaints Objective Active Medications: Acetaminophen (Tylenol Tab*) 650 mg PO Q6H PRN PRN Reason: HEADACHE/DISCOMFORT Last Admin: 05/29/18 09:30 Dose: 650 mg Amitriptyline HCl (Elavil Tab*) 50 mg PO BID [facility] Last Admin: 05/29/18 08:06 Dose: 50 mg Apixaban (Eliquis*) 5 mg PO BID [facility] Last Admin: 05/29/18 08:07 Dose: 5 mg Aspirin (Aspirin Ec Tab*) 81 mg PO DAILY [facility] Last Admin: 05/29/18 08:03 Dose: 81 mg Atorvastatin Calcium (Lipitor*) 80 mg PO 1700 [facility] Last Admin: 05/28/18 18:39 Dose: 80 mg Baclofen (Lioresal Tab*) 10 mg PO DAILY [facility] Last Admin: 05/29/18 08:05 Dose: 10 mg Baclofen (Lioresal Tab*) 5 mg PO TID PRN PRN Reason: pain Last Admin: 05/29/18 04:34 Dose: 5 mg Digoxin (Lanoxin Tab*) 0.125 mg PO DAILY [facility] Last Admin: 05/29/18 08:05 Dose: 0.125 mg Diltiazem HCl (Cardizem Cd Cap*) 360 mg PO DAILY [facility] Last Admin: 05/29/18 08:05 Dose: 360 mg Fluticasone Propionate (Flonase Nasal [place] 50mcg*) 1 spray BOTH NARES DAILY [facility] Last Admin: 05/29/18 09:25 Dose: 1 spray Folic Acid (Folvite Tab*) 1 mg PO DAILY [facility] Last Admin: 05/29/18 08:03 Dose: 1 mg Lidocaine (Lidoderm 5% Patch*) 1 patch TRANSDERM DAILY [facility] Last Admin: 05/29/18 08:08 Dose: 1 patch Metoprolol Succinate (Toprol Xl Tab*) 150 mg PO DAILY [facility] Last Admin: 05/29/18 08:03 Dose: 150 mg Omeprazole (Prilosec Cap*) 20 mg PO DAILY [facility] Last Admin: 05/29/18 08:06 Dose: 20 mg Pharmacy Profile Note (Lidocaine Patch Remove*) 1 note N/A 2100 [facility] Last Admin: 05/28/18 20:12 Dose: 1 note Torsemide (Demadex*) 5 mg PO DAILY [facility] Last Admin: 05/29/18 08:03 Dose: 5 mg Vital Signs - 8 hr 05/29/18 05/29/18 05/29/18 07:44 08:00 08:05 Temperature 98.0 F Pulse Rate 106 95 Respiratory 24 18 Rate Blood Pressure 145/57 (mmHg) O2 Sat by Pulse 98 Oximetry 05/29/18 11:24 Temperature 97.5 F Pulse Rate 79 Respiratory 18 Rate Blood Pressure 150/52 (mmHg) O2 Sat by Pulse 97 Oximetry Oxygen Devices in Use Now: None Appearance: 72 yo female A+Ox3 in NAD, noted cognitive decline, poor memory Eyes: No Scleral Icterus, PERRLA Ears/Nose/Mouth/Throat: NL Teeth, Lips, Gums, Mucous Membranes Moist Neck: NL Appearance and Movements; NL JVP Respiratory: Symmetrical Chest Expansion and Respiratory Effort, Clear to Auscultation Cardiovascular: NL Sounds; No Murmurs; No JVD, RRR, No Edema Abdominal: NL Sounds; No Tenderness; No Distention Extremities: No Edema, No Clubbing, Cyanosis Skin: No Rash or Ulcers, No Nodules or Sclerosis Neurological: Alert and Oriented x 3, NL Sensation, NL Gait, NL Muscle Strength and Tone Lines/Tubes/Other Access: Clean, Dry and Intact Peripheral IV Nutrition: Taking PO's Result Diagrams: 05/26/18 09:05 05/26/18 09:05 Microbiology and Other Data: Microbiology 05/23/18 21:13 Urine Culture - Final Urine No Growth (<1,000 CFU/mL) Assess/Plan/Problems-Billing Assessment: This is a 72 year old female patient with history of some forgetfulness at home that presented to ER with acute AMS. - Patient Problems (1) Altered mental status Comment: - at baseline. Suspect polypharmacy and/or vascular dementia with episodes of acute delirium - which has now resolved - CT head negative, cultures negative - Neurology following - MMA and homocysteine is elevated suggesting a B12 deficiency - start B12 supplementation - EEG with no epileptiform changes, repeat CT with no new pathology - Supportive care (2) Atrial fibrillation SNOMED Code(s): 13907127 Comment: - afib/aflutter - Rate controlled at baseline - discussed with nursing staff the importance of giving am meds on time - pt has everyday had runs of afib if her medications are given late - Eliquis, diltiazem, metoprolol, digoxin, torsemide (3) Unsteady gait Comment: - improving - No new infarct on initial or repeat CTs - Has history of degerative spinal disease and stenosis - PT following - Slowly reintroduce baclofen, amitriptyline for discomfort - suggest not increasing back to home dose and continued at reduced dosages (4) Chronic kidney disease, stage 3 Comment: - At baseline (5) Full code status (6) DVT prophylaxis Comment: - On eliquis Status and Disposition: Inpatient. Discussed with provider to provider from insurance company- the concern is the patient will require [place] [facility] care and may not require subacute. It is clear she is probably not able to live on her own and requires a lot of help if not 24 hour care. Per daughter she does not think she is safe to return to her living situation.
[2018-05-29] MEDS ORDERED: Cyanocobalamin INJ * 1,000 MCG/ML VIAL 1 ML VIAL IM ONE (14:30)
[2018-05-29] MEDS: Atorvastatin* 80 MG TAB PO SCH (15:49)
[2018-05-29] MEDS: Lidocaine Patch REMOVE* 1 NOTE MISC SCH (22:11)
[2018-05-30] MEDS: Acetaminophen TAB* 325 MG PO PRN ×2 (05:28→18:10)
[2018-05-30] MEDS: Lidocaine PATCH 5%* 1 PATCH TRANSDERM SCH (08:30)
[2018-05-30] MEDS: Amitriptyline TAB* 25 MG PO SCH ×2 (08:31→20:25)
[2018-05-30] MEDS: Torsemide TAB* 20 MG PO SCH (08:31)
[2018-05-30] MEDS: Metoprolol Succinate XL TAB* 50 MG PO SCH (08:31)
[2018-05-30] MEDS: Digoxin TAB* 0.125 MG PO SCH (08:33)
[2018-05-30] MEDS: Diltiazem CD CAP* 180 MG PO SCH (08:33)
[2018-05-30] MEDS: Baclofen TAB* 10 MG PO SCH (08:37)
[2018-05-30] MEDS: Cyanocobalamin TAB* 500 MCG PO SCH (08:37)
[2018-05-30] MEDS: Aspirin EC TAB* 81 MG TAB.EC PO SCH (08:37)
[2018-05-30] MEDS: Apixaban* 5 MG TAB PO SCH ×2 (08:37→20:25)
[2018-05-30] MEDS: Folic Acid TAB* 1 MG PO SCH (08:37)
[2018-05-30] MEDS: Omeprazole CAP* 20 MG PO SCH (08:37)
[2018-05-30] MEDS: Fluticasone NASAL SPRAY 50MCG* 16 gm SPRAY BTL BOTH NARES SCH (08:38)
[2018-05-30 09:56] LABS: BUN/Creatinine Ratio 22.3 (8-20); Calcium 8.8 mg/dL (8.6-10.3); EGFR Non-African American 58.7 (>60); Potassium 4.8 mmol/L (3.5-5.0)
[2018-05-30 09:58] LABS: ABS Basophils 0.1 10^3/ul (0-0.2); ABS Eosinophils 0.4 10^3/ul (0-0.6); ABS Lymphocytes 2.1 10^3/ul (1.0-4.8); ABS Monocytes 0.7 10^3/ul (0-0.8); ABS Neutrophils 8.8 10^3/ul (1.5-7.7); ABS Nucleated RBC 0 10^3/ul; Hematocrit 31 % (35-47); Hemoglobin 9.4 g/dl (12.0-16.0); Lymphocyte % 17.3 %; Mean Corpuscular HGB Conc 30 g/dl (31-36); Mean Corpuscular Hemoglobin 25 pg (27-31); Mean Corpuscular Volume 82 fL (80-97); Nucleated Red Blood Cells % 0; Platelet Count 168 10^3/ul (150-450); Red Blood Count 3.81 10^6/ul (4.00-5.40); Red Cell Distribution Width 21 % (10.5-15)
--- NOTE | 2018-05-30 12:40 | PN ---
Subjective Date of Service: 05/30/18 Interval History: Pt reports she is "in a better mood today" - she does not think she has a problem with managing her medications and that she "doesnt need help" - however when asked how she manages them she is not able to tell me. Today she reports neck pain stating this is chronic for her and not any worse today than normal - currently using hot packs with relief. Objective Active Medications: Acetaminophen (Tylenol Tab*) 650 mg PO Q6H PRN PRN Reason: HEADACHE/DISCOMFORT Last Admin: 05/30/18 05:28 Dose: 650 mg Amitriptyline HCl (Elavil Tab*) 50 mg PO BID [facility] Last Admin: 05/30/18 08:31 Dose: 50 mg Apixaban (Eliquis*) 5 mg PO BID [facility] Last Admin: 05/30/18 08:37 Dose: 5 mg Aspirin (Aspirin Ec Tab*) 81 mg PO DAILY [facility] Last Admin: 05/30/18 08:37 Dose: 81 mg Atorvastatin Calcium (Lipitor*) 80 mg PO 1700 [facility] Last Admin: 05/29/18 15:49 Dose: 80 mg Baclofen (Lioresal Tab*) 10 mg PO DAILY [facility] Last Admin: 05/30/18 08:37 Dose: 10 mg Baclofen (Lioresal Tab*) 5 mg PO TID PRN PRN Reason: pain Last Admin: 05/29/18 22:10 Dose: 5 mg Cyanocobalamin (Vitamin B12 Tab*) 1,000 mcg PO DAILY [facility] Last Admin: 05/30/18 08:37 Dose: 1,000 mcg Digoxin (Lanoxin Tab*) 0.125 mg PO DAILY [facility] Last Admin: 05/30/18 08:33 Dose: 0.125 mg Diltiazem HCl (Cardizem Cd Cap*) 360 mg PO DAILY [facility] Last Admin: 05/30/18 08:33 Dose: 360 mg Fluticasone Propionate (Flonase Nasal [place] 50mcg*) 1 spray BOTH NARES DAILY [facility] Last Admin: 05/30/18 08:38 Dose: 1 spray Folic Acid (Folvite Tab*) 1 mg PO DAILY [facility] Last Admin: 05/30/18 08:37 Dose: 1 mg Lidocaine (Lidoderm 5% Patch*) 1 patch TRANSDERM DAILY [facility] Last Admin: 12/09/18 08:30 Dose: 1 patch Metoprolol Succinate (Toprol Xl Tab*) 150 mg PO DAILY [facility] Last Admin: 05/30/18 08:31 Dose: 150 mg Omeprazole (Prilosec Cap*) 20 mg PO DAILY [facility] Last Admin: 05/30/18 08:37 Dose: 20 mg Pharmacy Profile Note (Lidocaine Patch Remove*) 1 note N/A 2100 [facility] Last Admin: 05/29/18 22:11 Dose: 1 note Torsemide (Demadex*) 5 mg PO DAILY [facility] Last Admin: 05/30/18 08:31 Dose: 5 mg Vital Signs - 8 hr 05/30/18 05/30/18 05/30/18 08:23 08:33 09:29 Temperature 97.1 F Pulse Rate 145 88 148 Respiratory 19 Rate Blood Pressure 173/71 120/65 (mmHg) O2 Sat by Pulse 99 99 Oximetry Oxygen Devices in Use Now: None Appearance: 72 yo female A+Ox3 in NAD - noted poor recall, poor cognitive memory Eyes: No Scleral Icterus, PERRLA Ears/Nose/Mouth/Throat: NL Teeth, Lips, Gums, Mucous Membranes Moist Neck: NL Appearance and Movements; NL JVP Respiratory: Symmetrical Chest Expansion and Respiratory Effort, Clear to Auscultation Cardiovascular: NL Sounds; No Murmurs; No JVD, RRR, No Edema Abdominal: NL Sounds; No Tenderness; No Distention Extremities: No Edema, No Clubbing, Cyanosis Skin: No Rash or Ulcers, No Nodules or Sclerosis Neurological: Alert and Oriented x 3 - noted confusion/cognitive decline, NL Sensation, NL Muscle Strength and Tone Lines/Tubes/Other Access: Clean, Dry and Intact Peripheral IV Nutrition: Taking PO's Result Diagrams: 05/30/18 09:34 05/30/18 09:34 Microbiology and Other Data: Microbiology 05/23/18 21:13 Urine Culture - Final Urine No Growth (<1,000 CFU/mL) Assess/Plan/Problems-Billing Assessment: This is a 72 year old female patient with history of some forgetfulness at home that presented to ER with acute AMS. - Patient Problems (1) Altered mental status Comment: - at baseline. Suspect polypharmacy and/or vascular dementia with episodes of acute delirium - which has now resolved - CT head negative, cultures negative - Neurology following - MMA and homocysteine is elevated suggesting a B12 deficiency - start B12 supplementation - EEG with no epileptiform changes, repeat CT with no new pathology - Supportive care (2) Atrial fibrillation SNOMED Code(s): 65821486 Comment: - afib/aflutter - Rate controlled at baseline - discussed with nursing staff the importance of giving am meds on time - pt has everyday had runs of afib if her medications are given late - Eliquis, diltiazem, metoprolol, digoxin, torsemide (3) Unsteady gait Comment: - improving - No new infarct on initial or repeat CTs - Has history of degerative spinal disease and stenosis - PT following - Slowly reintroduce baclofen, amitriptyline for discomfort - suggest not increasing back to home dose and continued at reduced dosages (4) Chronic kidney disease, stage 3 Comment: - At baseline (5) Full code status (6) DVT prophylaxis Comment: - On eliquis Status and Disposition: Inpatient. Discussed with provider to provider from insurance company- the concern is the patient will require half-way care and may not require subacute. It is clear she is probably not able to live on her own and requires a lot of help if not 24 hour care. Per daughter she does not think she is safe to return to her living situation.
[2018-05-30] MEDS: Baclofen TAB* 10 MG PO PRN (18:08)
[2018-05-30] MEDS: Atorvastatin* 80 MG TAB PO SCH (18:12)
[2018-05-30] MEDS: Lidocaine Patch REMOVE* 1 NOTE MISC SCH (20:29)
[2018-05-31] MEDS: Acetaminophen TAB* 325 MG PO PRN ×2 (01:47→09:23)
[2018-05-31] MEDS: Baclofen TAB* 10 MG PO PRN ×2 (01:48→13:24)
[2018-05-31] MEDS: Amitriptyline TAB* 25 MG PO SCH ×2 (09:07→19:57)
[2018-05-31] MEDS: Metoprolol Succinate XL TAB* 50 MG PO SCH (09:08)
[2018-05-31] MEDS: Cyanocobalamin TAB* 500 MCG PO SCH (09:08)
[2018-05-31] MEDS: Baclofen TAB* 10 MG PO SCH (09:09)
[2018-05-31] MEDS: Diltiazem CD CAP* 180 MG PO SCH (09:09)
[2018-05-31] MEDS: Apixaban* 5 MG TAB PO SCH ×2 (09:10→19:57)
[2018-05-31] MEDS: Digoxin TAB* 0.125 MG PO SCH (09:10)
[2018-05-31] MEDS: Torsemide TAB* 20 MG PO SCH (09:10)
[2018-05-31] MEDS: Omeprazole CAP* 20 MG PO SCH (09:14)
[2018-05-31] MEDS: Lidocaine PATCH 5%* 1 PATCH TRANSDERM SCH (09:14)
[2018-05-31] MEDS: Aspirin EC TAB* 81 MG TAB.EC PO SCH (09:14)
[2018-05-31] MEDS: Folic Acid TAB* 1 MG PO SCH (09:14)
--- NOTE | 2018-05-31 09:32 | PN ---
Subjective Date of Service: 05/31/18 Interval History: Patient seen and examined at bedside. Denies fever, chills, shortness of breath , chest discomfort, N/V/D. She reports back pain, that is near her baseline. She states that at home she takes Tylenol routine. Tele: Afib/A flutter, rate 70-90's. She is noted to have A flultter w/ 2:1 with rate in the 140's this morning. This appears to be a trend every morning. Family History: Unchanged from Admission Social History: Unchanged from Admission Past Medical History: Unchanged from Admission Objective Active Medications: Acetaminophen (Tylenol Tab*) 650 mg PO Q6H PRN Reason: HEADACHE/DISCOMFORT Amitriptyline HCl (Elavil Tab*) 50 mg PO BID [facility] Apixaban (Eliquis*) 5 mg PO BID [facility] Aspirin (Aspirin Ec Tab*) 81 mg PO DAILY [facility] Atorvastatin Calcium (Lipitor*) 80 mg PO 1700 [facility] Baclofen (Lioresal Tab*) 10 mg PO DAILY [facility] Baclofen (Lioresal Tab*) 5 mg PO TID PRN Reason: pain Cyanocobalamin (Vitamin B12 Tab*) 1,000 mcg PO DAILY [facility] Digoxin (Lanoxin Tab*) 0.125 mg PO DAILY [facility] Diltiazem HCl (Cardizem Cd Cap*) 360 mg PO DAILY [facility] Fluticasone Propionate (Flonase Nasal [place] 50mcg*) 1 spray BOTH NARES DAILY [facility] Folic Acid (Folvite Tab*) 1 mg PO DAILY [facility] Lidocaine (Lidoderm 5% Patch*) 1 patch TRANSDERM DAILY [facility] Metoprolol Succinate (Toprol Xl Tab*) 150 mg PO DAILY [facility] Omeprazole (Prilosec Cap*) 20 mg PO DAILY [facility] Pharmacy Profile Note (Lidocaine Patch Remove*) 1 note N/A 2100 [facility] Torsemide (Demadex*) 5 mg PO DAILY [facility] Vital Signs - 8 hr 05/31/18 05/31/18 05/31/18 03:55 04:05 07:22 Temperature 98.1 F 98.0 F Pulse Rate 71 73 Respiratory 18 Rate Blood Pressure 181/58 160/58 177/58 (mmHg) O2 Sat by Pulse 97 96 Oximetry Oxygen Devices in Use Now: None Appearance: NAD, sitting up in bed Ears/Nose/Mouth/Throat: Mucous Membranes Moist Respiratory: Symmetrical Chest Expansion and Respiratory Effort, Clear to Auscultation Cardiovascular: NL Sounds; No Murmurs; No JVD, RRR - , tachycardic Extremities: No Edema Skin: No Rash or Ulcers Neurological: Alert and Oriented x 3, NL Muscle Strength and Tone Lines/Tubes/Other Access: Clean, Dry and Intact Peripheral IV - site benign Nutrition: Taking PO's Result Diagrams: 05/30/18 09:34 05/30/18 09:34 Microbiology and Other Data: Microbiology 05/23/18 21:13 Urine Culture - Final Urine No Growth (<1,000 CFU/mL) Assess/Plan/Problems-Billing Assessment: Ms. Villarreal is a 72 year old female patient with PMH significant for HTN, dizziness and frequent falls who presented to ER with acute AMS. - Patient Problems (1) Altered mental status Code(s): R41.82 - ALTERED MENTAL STATUS, UNSPECIFIED SNOMED Code(s): 846694331 Comment: - Resolved, now at baseline - Suspect secondary to polypharmacy and/or vascular dementia with episodes of acute delirium, now resolved - CT head negative, cultures negative - Neurology consult, input appreciated - MMA and homocysteine is elevated suggesting a B12 deficiency - EEG with no epileptiform changes - Repeat CT with no new pathology - Continue B12 supplementation and supportive care (2) Atrial fibrillation Code(s): I48.91 - UNSPECIFIED ATRIAL FIBRILLATION SNOMED Code(s): 55996368 Comment: - Noted to be in the 140's this AM, prior to AM medications - Afib/aflutter, rate controlled at baseline - Discussed with nursing staff the importance of giving am meds on time, everyday has runs of afib if her medications are given late - Continue Eliquis, diltiazem, metoprolol, and digoxin - Attempting to discuss medication schedule with daughter (3) Unsteady gait Code(s): R26.81 - UNSTEADINESS ON FEET SNOMED Code(s): 030171680 Comment: - Gait improving - No new infarct on initial or repeat CTs - Has history of degerative spinal disease and stenosis - PT following - Slowly reintroduce baclofen, amitriptyline for discomfort (suggest not increasing back to home dose and continued at reduced dosages) (4) Chronic kidney disease, stage 3 Code(s): N18.3 - CHRONIC KIDNEY DISEASE, STAGE 3 (MODERATE) SNOMED Code(s): 046750119 Comment: - At baseline (5) Chronic pain Code(s): G89.29 - OTHER CHRONIC PAIN SNOMED Code(s): 46522348 Comment: - Continue amitriptyline (at reduced dose) - Oxycodone discontinued after episode of delirium - She wants to try some herbal supplements at home and avoid narcotics - Will start Tylenol 975 mg routine Q6H (6) DVT prophylaxis Code(s): XYB8559 - SNOMED Code(s): 977947379 Comment: - Eliquis (7) Full code status Code(s): Z78.9 - OTHER SPECIFIED HEALTH STATUS SNOMED Code(s): 361929706 Status and Disposition: Inpatient. It is clear she is probably not able to live on her own and requires a lot of help if not 24 hour care. Per daughter she does not think she is safe to return to her living situation. Attending: Getachew Pollack
[2018-05-31] MEDS: Fluticasone NASAL SPRAY 50MCG* 16 gm SPRAY BTL BOTH NARES SCH (10:33)
[2018-05-31] MEDS: Acetaminophen TAB* 325 MG PO SCH (16:32)
[2018-05-31] MEDS: Atorvastatin* 80 MG TAB PO SCH (16:32)
[2018-05-31] MEDS: Lidocaine Patch REMOVE* 1 NOTE MISC SCH (20:05)
[2018-06-01] MEDS: Acetaminophen TAB* 325 MG PO SCH ×5 (02:35→20:41)
[2018-06-01] MEDS: Diltiazem CD CAP* 180 MG PO SCH (08:03)
[2018-06-01] MEDS: Torsemide TAB* 20 MG PO SCH (08:03)
[2018-06-01] MEDS: Fluticasone NASAL SPRAY 50MCG* 16 gm SPRAY BTL BOTH NARES SCH (08:03)
[2018-06-01] MEDS: Folic Acid TAB* 1 MG PO SCH (08:03)
[2018-06-01] MEDS: Aspirin EC TAB* 81 MG TAB.EC PO SCH (08:04)
[2018-06-01] MEDS: Metoprolol Succinate XL TAB* 50 MG PO SCH (08:04)
[2018-06-01] MEDS: Apixaban* 5 MG TAB PO SCH ×2 (08:05→20:41)
[2018-06-01] MEDS: Cyanocobalamin TAB* 500 MCG PO SCH (08:05)
[2018-06-01] MEDS: Amitriptyline TAB* 25 MG PO SCH ×2 (08:05→20:12)
[2018-06-01] MEDS: Baclofen TAB* 10 MG PO SCH (08:05)
[2018-06-01] MEDS: Digoxin TAB* 0.125 MG PO SCH (08:05)
[2018-06-01] MEDS: Omeprazole CAP* 20 MG PO SCH (08:05)
[2018-06-01] MEDS: Lidocaine PATCH 5%* 1 PATCH TRANSDERM SCH (08:06)
[2018-06-01] MEDS: Baclofen TAB* 10 MG PO PRN ×2 (14:02→19:20)
[2018-06-01] MEDS: Atorvastatin* 80 MG TAB PO SCH (15:40)
--- NOTE | 2018-06-01 17:15 | PN ---
Subjective Date of Service: 06/01/18 Interval History: Pt seen and examined. Meds and labs reviewed. CC: N/A ROS: Denied VALENCIA/dizziness, F/C, N/V, CP, SOB, increased cough, sputum production , abd pain, diarrhea, constipation, dysuria, myalgias, arthralgias, throat pain , and new skin lesions. The rest of the 14 point ROS are unremarkable. PHYSICAL EXAM: GEN APPEARANCE: Awake, not in acute distress, Ox3 HEENT: NC/AT, PERRLA, moist oral mucosa, (-) throat erythema NECK: Soft, supple, (-) cervical LAD, (-)JVD HEART: S1S2 WNL, RRR, No MRG CHEST: CTA, BL, GAE, No W/R/R ABD: Soft, ND/NT, NABS 4x Q EXT: No C/C/E SKIN: Warm to touch PSYCH: No active psychosis, hallucinations, depression, SI/HI Family History: Unchanged from Admission Social History: Unchanged from Admission Past Medical History: Unchanged from Admission Objective Active Medications: Acetaminophen (Tylenol Tab*) 975 mg PO Q6H [facility] Last Admin: 06/01/18 15:40 Dose: 975 mg Amitriptyline HCl (Elavil Tab*) 50 mg PO BID [facility] Last Admin: 06/01/18 08:05 Dose: 50 mg Apixaban (Eliquis*) 5 mg PO BID [facility] Last Admin: 06/01/18 08:05 Dose: 5 mg Aspirin (Aspirin Ec Tab*) 81 mg PO DAILY [facility] Last Admin: 06/01/18 08:04 Dose: 81 mg Atorvastatin Calcium (Lipitor*) 80 mg PO 1700 [facility] Last Admin: 06/01/18 15:40 Dose: 80 mg Baclofen (Lioresal Tab*) 10 mg PO DAILY [facility] Last Admin: 06/01/18 08:05 Dose: 10 mg Baclofen (Lioresal Tab*) 5 mg PO TID PRN PRN Reason: pain Last Admin: 06/01/18 14:02 Dose: 5 mg Cyanocobalamin (Vitamin B12 Tab*) 1,000 mcg PO DAILY [facility] Last Admin: 06/01/18 08:05 Dose: 1,000 mcg Cyanocobalamin (Vitamin B12 Inj *) 1,000 mcg IM WEEKLY ONE Stop: 06/01/18 17:09 Digoxin (Lanoxin Tab*) 0.125 mg PO 0800 [facility] Last Admin: 06/01/18 08:05 Dose: 0.125 mg Diltiazem HCl (Cardizem Cd Cap*) 360 mg PO 0800 [facility] Last Admin: 06/01/18 08:03 Dose: 360 mg Fluticasone Propionate (Flonase Nasal [place] 50mcg*) 1 spray BOTH NARES DAILY [facility] Last Admin: 06/01/18 08:03 Dose: 1 spray Folic Acid (Folvite Tab*) 1 mg PO DAILY [facility] Last Admin: 06/01/18 08:03 Dose: 1 mg Lidocaine (Lidoderm 5% Patch*) 1 patch TRANSDERM DAILY [facility] Last Admin: 06/01/18 08:06 Dose: 1 patch Metoprolol Succinate (Toprol Xl Tab*) 150 mg PO 0800 [facility] Last Admin: 06/01/18 08:04 Dose: 150 mg Omeprazole (Prilosec Cap*) 20 mg PO DAILY [facility] Last Admin: 06/01/18 08:05 Dose: 20 mg Pharmacy Profile Note (Lidocaine Patch Remove*) 1 note N/A 2100 [facility] Last Admin: 05/31/18 20:05 Dose: 1 note Torsemide (Demadex*) 5 mg PO DAILY [facility] Last Admin: 06/01/18 08:03 Dose: 5 mg Vital Signs - 8 hr 06/01/18 06/01/18 11:28 15:08 Temperature 97.2 F 98.3 F Pulse Rate 70 69 Respiratory 17 17 Rate Blood Pressure 128/42 129/40 (mmHg) O2 Sat by Pulse 95 97 Oximetry Oxygen Devices in Use Now: None Result Diagrams: 05/30/18 09:34 05/30/18 09:34 Microbiology and Other Data: Microbiology 05/23/18 21:13 Urine Culture - Final Urine No Growth (<1,000 CFU/mL) Assess/Plan/Problems-Billing Assessment: Ms. Villarreal is a 72 year old female patient with PMH significant for HTN, dizziness and frequent falls who presented to ER with acute AMS. - Patient Problems (1) Altered mental status Current Visit: Yes Status: Acute Code(s): R41.82 - ALTERED MENTAL STATUS, UNSPECIFIED SNOMED Code(s): 671777606 Comment: -Suspect secondary to polypharmacy and/or vascular dementia with episodes of acute delirium, now resolvedlikely mainly due to anticholinergic effects of D/C d Amytriptylline and B12 deficiency - Resolved, now at baseline - CT head negative, cultures negative - Neurology consult, input appreciated - MMA and homocysteine is elevated suggesting a B12 deficiency - EEG with no epileptiform changes - Repeat CT with no new pathology - Continue B12 supplementation and supportive care (2) B12 deficiency Current Visit: Yes Status: Acute Code(s): E53.8 - DEFICIENCY OF OTHER SPECIFIED B GROUP VITAMINS SNOMED Code(s): 079041349 Comment: -Currently on PO and no known hx of pernicious anemia -Will continue oral form, however, will Give IM x1 of 1000 mcg and will defer w/ PCP to re-check levels to see wether PO form is adequate---if not, may have to give IM regimen (3) Atrial fibrillation Current Visit: Yes Status: Chronic Code(s): I48.91 - UNSPECIFIED ATRIAL FIBRILLATION SNOMED Code(s): 93263464 Comment: - Afib/aflutter, rate controlled at baseline - Continue Eliquis, diltiazem, metoprolol, and digoxin - Attempting to discuss medication schedule with daughter (4) Unsteady gait Current Visit: Yes Status: Acute Code(s): R26.81 - UNSTEADINESS ON FEET SNOMED Code(s): 186374831 Comment: - Gait improving - No new infarct on initial or repeat CTs - Has history of degerative spinal disease and stenosis - PT following - Slowly reintroduce baclofen, amitriptyline for discomfort (suggest not increasing back to home dose and continued at reduced dosages) (5) Chronic kidney disease, stage 3 Current Visit: Yes Status: Chronic Code(s): N18.3 - CHRONIC KIDNEY DISEASE, STAGE 3 (MODERATE) SNOMED Code(s): 237112182 Comment: - At baseline (6) DVT prophylaxis Current Visit: Yes Status: Acute Code(s): TLV2883 - SNOMED Code(s): 713442331 Comment: - Continue Eliquis Status and Disposition: -Placement pending -Possible D/C in AM
[2018-06-01] MEDS ORDERED: Cyanocobalamin INJ * 1,000 MCG/ML VIAL 1 ML VIAL IM ONE (18:00)
[2018-06-01] MEDS: Lidocaine Patch REMOVE* 1 NOTE MISC SCH (20:41)
[2018-06-02] MEDS: Acetaminophen TAB* 325 MG PO SCH ×4 (04:14→21:00)
[2018-06-02] MEDS: Metoprolol Succinate XL TAB* 50 MG PO SCH (08:29)
[2018-06-02] MEDS: Amitriptyline TAB* 25 MG PO SCH ×2 (08:30→21:01)
[2018-06-02] MEDS: Aspirin EC TAB* 81 MG TAB.EC PO SCH (08:30)
[2018-06-02] MEDS: Digoxin TAB* 0.125 MG PO SCH (08:30)
[2018-06-02] MEDS: Omeprazole CAP* 20 MG PO SCH (08:30)
[2018-06-02] MEDS: Folic Acid TAB* 1 MG PO SCH (08:31)
[2018-06-02] MEDS: Cyanocobalamin TAB* 500 MCG PO SCH (08:31)
[2018-06-02] MEDS: Baclofen TAB* 10 MG PO SCH (08:31)
[2018-06-02] MEDS: Diltiazem CD CAP* 180 MG PO SCH (08:31)
[2018-06-02] MEDS: Apixaban* 5 MG TAB PO SCH ×2 (08:31→21:01)
[2018-06-02] MEDS: Torsemide TAB* 20 MG PO SCH (08:32)
[2018-06-02] MEDS: Lidocaine PATCH 5%* 1 PATCH TRANSDERM SCH (11:15)
[2018-06-02] MEDS: Fluticasone NASAL SPRAY 50MCG* 16 gm SPRAY BTL BOTH NARES SCH (11:15)
[2018-06-02] MEDS: Atorvastatin* 80 MG TAB PO SCH (16:43)
[2018-06-02] MEDS: Baclofen TAB* 10 MG PO PRN ×2 (16:47→21:01)
--- NOTE | 2018-06-02 18:48 | PN ---
Subjective Date of Service: 06/02/18 Interval History: Pt seen and examined. Meds and labs reviewed. CC: Pt seen earlier this AM and did not have complaints. Later in afternoon, RN informed me that pt having anterior CP that improves with palpation. ROS: Denied VALENCIA/dizziness, F/C, N/V, SOB, increased cough, sputum production, abd pain, diarrhea, constipation, dysuria, myalgias, arthralgias, throat pain, and new skin lesions. The rest of the 14 point ROS are unremarkable. PHYSICAL EXAM: GEN APPEARANCE: Awake, not in acute distress HEENT: NC/AT, PERRLA, moist oral mucosa, (-) throat erythema NECK: Soft, supple, (-) cervical LAD, (-)JVD HEART: S1S2 WNL, RRR, No MRG CHEST: CTA, BL, GAE, No W/R/R ABD: Soft, ND/NT, NABS 4x Q EXT: No C/C/E SKIN: Warm to touch PSYCH: No active psychosis, hallucinations, depression, SI/HI Family History: Unchanged from Admission Social History: Unchanged from Admission Past Medical History: Unchanged from Admission Objective Active Medications: Acetaminophen (Tylenol Tab*) 975 mg PO Q6H [facility] Last Admin: 06/02/18 16:43 Dose: 975 mg Amitriptyline HCl (Elavil Tab*) 50 mg PO BID [facility] Last Admin: 06/02/18 08:30 Dose: 50 mg Apixaban (Eliquis*) 5 mg PO BID [facility] Last Admin: 06/02/18 08:31 Dose: 5 mg Aspirin (Aspirin Ec Tab*) 81 mg PO DAILY [facility] Last Admin: 06/02/18 08:30 Dose: 81 mg Atorvastatin Calcium (Lipitor*) 80 mg PO 1700 [facility] Last Admin: 06/02/18 16:43 Dose: 80 mg Baclofen (Lioresal Tab*) 10 mg PO DAILY [facility] Last Admin: 06/02/18 08:31 Dose: 10 mg Baclofen (Lioresal Tab*) 5 mg PO TID PRN PRN Reason: pain Last Admin: 06/02/18 16:47 Dose: 5 mg Cyanocobalamin (Vitamin B12 Tab*) 1,000 mcg PO DAILY [facility] Last Admin: 06/02/18 08:31 Dose: 1,000 mcg Digoxin (Lanoxin Tab*) 0.125 mg PO 0800 [facility] Last Admin: 06/02/18 08:30 Dose: 0.125 mg Diltiazem HCl (Cardizem Cd Cap*) 360 mg PO 0800 [facility] Last Admin: 06/02/18 08:31 Dose: 360 mg Fluticasone Propionate (Flonase Nasal [place] 50mcg*) 1 spray BOTH NARES DAILY [facility] Last Admin: 06/02/18 11:15 Dose: 1 spray Folic Acid (Folvite Tab*) 1 mg PO DAILY [facility] Last Admin: 06/02/18 08:31 Dose: 1 mg Lidocaine (Lidoderm 5% Patch*) 1 patch TRANSDERM DAILY [facility] Last Admin: 06/02/18 11:15 Dose: 1 patch Metoprolol Succinate (Toprol Xl Tab*) 150 mg PO 0800 [facility] Last Admin: 06/02/18 08:29 Dose: 150 mg Omeprazole (Prilosec Cap*) 20 mg PO DAILY [facility] Last Admin: 06/02/18 08:30 Dose: 20 mg Pharmacy Profile Note (Lidocaine Patch Remove*) 1 note N/A 2100 [facility] Last Admin: 06/01/18 20:41 Dose: 1 note Torsemide (Demadex*) 5 mg PO DAILY [facility] Last Admin: 06/02/18 08:32 Dose: 5 mg Vital Signs - 8 hr 06/02/18 06/02/18 06/02/18 11:15 11:37 15:49 Temperature 97.7 F 98.2 F Pulse Rate 69 69 Respiratory 18 18 20 Rate Blood Pressure 149/59 146/57 (mmHg) O2 Sat by Pulse 98 96 Oximetry 06/02/18 17:22 Temperature 98.0 F Pulse Rate 69 Respiratory 20 Rate Blood Pressure 158/52 (mmHg) O2 Sat by Pulse 97 Oximetry Oxygen Devices in Use Now: None Result Diagrams: 05/30/18 09:34 05/30/18 09:34 Microbiology and Other Data: Microbiology 05/23/18 21:13 Urine Culture - Final Urine No Growth (<1,000 CFU/mL) Assess/Plan/Problems-Billing Assessment: Ms. Villarreal is a 72 year old female patient with PMH significant for HTN, dizziness and frequent falls who presented to ER with acute AMS. - Patient Problems (1) Chest pain Current Visit: Yes Status: Acute Code(s): R07.9 - CHEST PAIN, UNSPECIFIED SNOMED Code(s): 28056963 Comment: -CXR ordered shows NAD per my wet read but will await official report -EKG shows A. flutter, with no new changes from previous -1st set of repeat troponins improved from previous and has normalized -Unlikely cardiac in nature -Will obtain D-dimer and would only eval for PE if D-dimer elevated for age (2) Altered mental status Current Visit: Yes Status: Acute Code(s): R41.82 - ALTERED MENTAL STATUS, UNSPECIFIED SNOMED Code(s): 866197040 Comment: -Suspect secondary to polypharmacy and/or vascular dementia with episodes of acute delirium, now resolvedlikely mainly due to anticholinergic effects of D/C d Amytriptylline and B12 deficiency - Resolved, now at baseline - CT head negative, cultures negative - Neurology consult, input appreciated - MMA and homocysteine is elevated suggesting a B12 deficiency - EEG with no epileptiform changes - Repeat CT with no new pathology - Continue B12 supplementation and supportive care (3) B12 deficiency Current Visit: Yes Status: Acute Code(s): E53.8 - DEFICIENCY OF OTHER SPECIFIED B GROUP VITAMINS SNOMED Code(s): 107984940 Comment: -Currently on PO and no known hx of pernicious anemia -Will PO supplementation; pt has been given 1x IM dose of 1000 ug yesterday (4) Atrial fibrillation Current Visit: Yes Status: Chronic Code(s): I48.91 - UNSPECIFIED ATRIAL FIBRILLATION SNOMED Code(s): 23674157 Comment: - Afib/aflutter, rate controlled at baseline - Continue Eliquis, diltiazem, metoprolol, and digoxin - Attempting to discuss medication schedule with daughter (5) Unsteady gait Current Visit: Yes Status: Acute Code(s): R26.81 - UNSTEADINESS ON FEET SNOMED Code(s): 711245325 Comment: - Gait improving - No new infarct on initial or repeat CTs - Has history of degerative spinal disease and stenosis - PT following - Slowly reintroduce baclofen, amitriptyline for discomfort (suggest not increasing back to home dose and continued at reduced dosages) (6) Chronic kidney disease, stage 3 Current Visit: Yes Status: Chronic Code(s): N18.3 - CHRONIC KIDNEY DISEASE, STAGE 3 (MODERATE) SNOMED Code(s): 512082035 Comment: - At baseline (7) DVT prophylaxis Current Visit: Yes Status: Acute Code(s): CJB7785 - SNOMED Code(s): 437341688 Comment: - Continue Eliquis Status and Disposition: -Placement pending -Possible D/C in AM
[2018-06-02] MEDS: Lidocaine Patch REMOVE* 1 NOTE MISC SCH (21:03)
[2018-06-03] MEDS: Acetaminophen TAB* 325 MG PO SCH ×4 (04:26→22:06)
[2018-06-03 06:39] LABS: ABS Basophils 0.1 10^3/ul (0-0.2); ABS Eosinophils 0.4 10^3/ul (0-0.6); ABS Lymphocytes 2.5 10^3/ul (1.0-4.8); ABS Neutrophils 7.5 10^3/ul (1.5-7.7); ABS Nucleated RBC 0 10^3/ul; Eosinophil % 3.3 %; Hematocrit 28 % (35-47); Hemoglobin 8.5 g/dl (12.0-16.0); Lymphocyte % 21.7 %; Mean Corpuscular HGB Conc 30 g/dl (31-36); Mean Corpuscular Hemoglobin 25 pg (27-31); Mean Corpuscular Volume 81 fL (80-97); Mean Platelet Volume 9.2 fL (7.4-10.4); Nucleated Red Blood Cells % 0.1; Platelet Count 193 10^3/ul (150-450); Red Blood Count 3.43 10^6/ul (4.00-5.40); Red Cell Distribution Width 21 % (10.5-15); White Blood Count 11.5 10^3/ul (3.5-10.8)
[2018-06-03 07:01] LABS: Albumin 3.2 g/dL (3.2-5.2); Albumin/Globulin Ratio 1.2 (1-3); BUN/Creatinine Ratio 28.7 (8-20); Calcium 8.7 mg/dL (8.6-10.3); Globulin 2.7 g/dL (2-4); Magnesium 2.2 mg/dL (1.9-2.7); Phosphorus 3.9 mg/dL (2.5-5.0); Potassium 4.5 mmol/L (3.5-5.0); Total Bilirubin 0.2 mg/dL (0.2-1.0); Total Protein 5.9 g/dL (6.4-8.9)
[2018-06-03] MEDS: Fluticasone NASAL SPRAY 50MCG* 16 gm SPRAY BTL BOTH NARES SCH (07:57)
[2018-06-03] MEDS: Metoprolol Succinate XL TAB* 50 MG PO SCH (07:57)
[2018-06-03] MEDS: Apixaban* 5 MG TAB PO SCH ×2 (07:58→19:53)
[2018-06-03] MEDS: Folic Acid TAB* 1 MG PO SCH (07:58)
[2018-06-03] MEDS: Amitriptyline TAB* 25 MG PO SCH ×2 (07:58→19:53)
[2018-06-03] MEDS: Cyanocobalamin TAB* 500 MCG PO SCH (07:58)
[2018-06-03] MEDS: Aspirin EC TAB* 81 MG TAB.EC PO SCH (07:58)
[2018-06-03] MEDS: Diltiazem CD CAP* 180 MG PO SCH (07:58)
[2018-06-03] MEDS: Digoxin TAB* 0.125 MG PO SCH (07:59)
[2018-06-03] MEDS: Torsemide TAB* 20 MG PO SCH (07:59)
[2018-06-03] MEDS: Omeprazole CAP* 20 MG PO SCH (07:59)
[2018-06-03] MEDS: Baclofen TAB* 10 MG PO SCH (07:59)
[2018-06-03] MEDS: Lidocaine PATCH 5%* 1 PATCH TRANSDERM SCH (08:02)
[2018-06-03] MEDS ORDERED: NS 0.9% 500 ML* 500 ML IV SCH (09:00)
[2018-06-03] MEDS: Atorvastatin* 80 MG TAB PO SCH (16:28)
[2018-06-03] MEDS: Baclofen TAB* 10 MG PO PRN ×2 (18:30→22:07)
--- NOTE | 2018-06-03 18:34 | PN ---
Subjective Date of Service: 06/03/18 Interval History: Pt seen and examined. Meds and labs reviewed. CC: N/A ROS: Denied VALENCIA/dizziness, F/C, N/V, CP, SOB, increased cough, sputum production , abd pain, diarrhea, constipation, dysuria, myalgias, arthralgias, throat pain , and new skin lesions. The rest of the 14 point ROS are unremarkable. PHYSICAL EXAM: GEN APPEARANCE: Awake, not in acute distress HEENT: NC/AT, PERRLA, moist oral mucosa, (-) throat erythema NECK: Soft, supple, (-) cervical LAD, (-)JVD HEART: S1S2 WNL, RRR, No MRG CHEST: CTA, BL, GAE, No W/R/R ABD: Soft, ND/NT, NABS 4x Q EXT: No C/C/E SKIN: Warm to touch PSYCH: No active psychosis, hallucinations, depression, SI/HI Family History: Unchanged from Admission Social History: Unchanged from Admission Past Medical History: Unchanged from Admission Objective Active Medications: Acetaminophen (Tylenol Tab*) 975 mg PO Q6H [facility] Last Admin: 06/03/18 16:28 Dose: 975 mg Acetylcysteine (Acetylcysteine Cap (Renal)*) 1,200 mg PO BID [facility] Stop: 06/05/18 09:01 Amitriptyline HCl (Elavil Tab*) 50 mg PO BID [facility] Last Admin: 06/03/18 07:58 Dose: 50 mg Apixaban (Eliquis*) 5 mg PO BID [facility] Last Admin: 06/03/18 07:58 Dose: 5 mg Aspirin (Aspirin Ec Tab*) 81 mg PO DAILY [facility] Last Admin: 06/03/18 07:58 Dose: 81 mg Atorvastatin Calcium (Lipitor*) 80 mg PO 1700 [facility] Last Admin: 06/03/18 16:28 Dose: 80 mg Baclofen (Lioresal Tab*) 10 mg PO DAILY [facility] Last Admin: 06/03/18 07:59 Dose: 10 mg Baclofen (Lioresal Tab*) 5 mg PO TID PRN PRN Reason: pain Last Admin: 06/03/18 18:30 Dose: 5 mg Cyanocobalamin (Vitamin B12 Tab*) 1,000 mcg PO DAILY [facility] Last Admin: 06/03/18 07:58 Dose: 1,000 mcg Digoxin (Lanoxin Tab*) 0.125 mg PO 0800 [facility] Last Admin: 06/03/18 07:59 Dose: 0.125 mg Diltiazem HCl (Cardizem Cd Cap*) 360 mg PO 0800 [facility] Last Admin: 06/03/18 07:58 Dose: 360 mg Fluticasone Propionate (Flonase Nasal [place] 50mcg*) 1 spray BOTH NARES DAILY [facility] Last Admin: 06/03/18 07:57 Dose: 1 spray Folic Acid (Folvite Tab*) 1 mg PO DAILY [facility] Last Admin: 06/03/18 07:58 Dose: 1 mg Sodium Chloride (Ns 0.9% 1000 Ml*) 1,000 mls @ 75 mls/hr IV PER RATE [facility] Lidocaine (Lidoderm 5% Patch*) 1 patch TRANSDERM DAILY [facility] Last Admin: 06/03/18 08:02 Dose: 1 patch Metoprolol Succinate (Toprol Xl Tab*) 150 mg PO 0800 [facility] Last Admin: 06/03/18 07:57 Dose: 150 mg Omeprazole (Prilosec Cap*) 20 mg PO DAILY [facility] Last Admin: 06/03/18 07:59 Dose: 20 mg Pharmacy Profile Note (Lidocaine Patch Remove*) 1 note N/A 2100 [facility] Last Admin: 06/02/18 21:03 Dose: 1 note Torsemide (Demadex*) 5 mg PO DAILY [facility] Last Admin: 06/03/18 07:59 Dose: 5 mg Vital Signs - 8 hr 06/03/18 06/03/18 11:35 16:06 Temperature 97.5 F 98.8 F Pulse Rate 68 69 Respiratory 18 16 Rate Blood Pressure 134/50 145/45 (mmHg) O2 Sat by Pulse 99 98 Oximetry Oxygen Devices in Use Now: None Result Diagrams: 06/03/18 06:01 06/03/18 06:01 Microbiology and Other Data: Microbiology 05/23/18 21:13 Urine Culture - Final Urine No Growth (<1,000 CFU/mL) Assess/Plan/Problems-Billing Assessment: Ms. Villarreal is a 72 year old female patient with PMH significant for HTN, dizziness and frequent falls who presented to ER with acute AMS. - Patient Problems (1) Chest pain Current Visit: Yes Status: Acute Code(s): R07.9 - CHEST PAIN, UNSPECIFIED SNOMED Code(s): 06149503 Comment: -CXR ordered shows right peripheral midlung field lesion---an incidental finding given her CP is now resolved and the pain she complained about was more central than peripheral -Ordered CT w/contrast to better eval above -EKG shows A. flutter, with no new changes from previous -1st set of repeat troponins improved from previous and has normalized -Unlikely cardiac in nature -D-dimer WNL of her age group (2) Lesion of right lung Current Visit: Yes Status: Acute Code(s): R91.1 - SOLITARY PULMONARY NODULE SNOMED Code(s): 861837753 Comment: #Incidental lung lesion: -For CT w/contrast of chest -Please see above discussion (3) Altered mental status Current Visit: Yes Status: Acute Code(s): R41.82 - ALTERED MENTAL STATUS, UNSPECIFIED SNOMED Code(s): 785421849 Comment: -Suspect secondary to polypharmacy primarily due to anticholinergic effect of Amytryptiline in addition to B12 deficiency - Resolved, now at baseline - CT head negative, cultures negative - Neurology consult, input appreciated - MMA and homocysteine is elevated suggesting a B12 deficiency - EEG with no epileptiform changes - Repeat CT with no new pathology - Continue B12 supplementation and supportive care (4) B12 deficiency Current Visit: Yes Status: Acute Code(s): E53.8 - DEFICIENCY OF OTHER SPECIFIED B GROUP VITAMINS SNOMED Code(s): 096919896 Comment: -Currently on PO and no known hx of pernicious anemia -Will PO supplementation; pt has been given 1x IM dose of 1000 ug yesterday (5) Atrial fibrillation Current Visit: Yes Status: Chronic Code(s): I48.91 - UNSPECIFIED ATRIAL FIBRILLATION SNOMED Code(s): 01311132 Comment: - Afib/aflutter, rate controlled at baseline - Continue Eliquis, diltiazem, metoprolol, and digoxin - Attempting to discuss medication schedule with daughter (6) Unsteady gait Current Visit: Yes Status: Acute Code(s): R26.81 - UNSTEADINESS ON FEET SNOMED Code(s): 816433489 Comment: - Gait improving - No new infarct on initial or repeat CTs - Has history of degerative spinal disease and stenosis - PT following - Slowly reintroduce baclofen, amitriptyline for discomfort (suggest not increasing back to home dose and continued at reduced dosages) (7) Chronic kidney disease, stage 3 Current Visit: Yes Status: Chronic Code(s): N18.3 - CHRONIC KIDNEY DISEASE, STAGE 3 (MODERATE) SNOMED Code(s): 179781367 Comment: - At baseline (8) DVT prophylaxis Current Visit: Yes Status: Acute Code(s): TCW3263 - SNOMED Code(s): 970416400 Comment: - Continue Eliquis Status and Disposition: -Placement pending -Possible D/C in AM
[2018-06-03] MEDS ORDERED: Iodixanol* (CONTRAST) 320 MG/ML 100 ML SDV IV ONE (18:59)
[2018-06-03] MEDS: Acetylcysteine CAP (RENAL)* 600 MG PO SCH (19:54)
[2018-06-03] MEDS: Lidocaine Patch REMOVE* 1 NOTE MISC SCH (19:57)
[2018-06-03] MEDS: NS 0.9% 1000 ML* 1,000 ML IV SCH (20:27)
[2018-06-04] MEDS: Acetaminophen TAB* 325 MG PO SCH ×4 (03:04→20:21)
[2018-06-04] MEDS: Lidocaine PATCH 5%* 1 PATCH TRANSDERM SCH (07:57)
[2018-06-04] MEDS: Fluticasone NASAL SPRAY 50MCG* 16 gm SPRAY BTL BOTH NARES SCH (07:57)
[2018-06-04] MEDS: Metoprolol Succinate XL TAB* 50 MG PO SCH (07:59)
[2018-06-04] MEDS: Acetylcysteine CAP (RENAL)* 600 MG PO SCH ×2 (07:59→19:28)
[2018-06-04] MEDS: Amitriptyline TAB* 25 MG PO SCH ×2 (07:59→19:26)
[2018-06-04] MEDS: Folic Acid TAB* 1 MG PO SCH (07:59)
[2018-06-04] MEDS: Baclofen TAB* 10 MG PO SCH (08:02)
[2018-06-04] MEDS: Diltiazem CD CAP* 180 MG PO SCH (08:02)
[2018-06-04] MEDS: Digoxin TAB* 0.125 MG PO SCH (08:03)
[2018-06-04] MEDS: Omeprazole CAP* 20 MG PO SCH (08:03)
[2018-06-04] MEDS: Aspirin EC TAB* 81 MG TAB.EC PO SCH (08:03)
[2018-06-04] MEDS: Apixaban* 5 MG TAB PO SCH ×2 (08:03→19:26)
[2018-06-04] MEDS: Cyanocobalamin TAB* 500 MCG PO SCH (08:03)
[2018-06-04] MEDS: Torsemide TAB* 20 MG PO SCH (08:04)
[2018-06-04] MEDS: NS 0.9% 1000 ML* 1,000 ML IV SCH (09:36)
[2018-06-04] MEDS: amLODIPine TAB* 5 MG PO SCH (09:47)
[2018-06-04 09:59] LABS: ABS Basophils 0.1 10^3/ul (0-0.2); ABS Eosinophils 0.2 10^3/ul (0-0.6); ABS Lymphocytes 1.9 10^3/ul (1.0-4.8); ABS Monocytes 0.7 10^3/ul (0-0.8); ABS Neutrophils 7.4 10^3/ul (1.5-7.7); ABS Nucleated RBC 0 10^3/ul; Eosinophil % 2.2 %; Hematocrit 29 % (35-47); Hemoglobin 8.7 g/dl (12.0-16.0); Lymphocyte % 18.2 %; Mean Corpuscular HGB Conc 30 g/dl (31-36); Mean Corpuscular Hemoglobin 25 pg (27-31); Mean Corpuscular Volume 83 fL (80-97); Mean Platelet Volume 9.1 fL (7.4-10.4); Nucleated Red Blood Cells % 0; Platelet Count 212 10^3/ul (150-450); Red Blood Count 3.52 10^6/ul (4.00-5.40); Red Cell Distribution Width 20 % (10.5-15); White Blood Count 10.4 10^3/ul (3.5-10.8)
[2018-06-04 10:16] LABS: Albumin 3.2 g/dL (3.2-5.2); Albumin/Globulin Ratio 1.2 (1-3); BUN/Creatinine Ratio 27.3 (8-20); Calcium 8.5 mg/dL (8.6-10.3); EGFR Non-African American 55.3 (>60); Globulin 2.7 g/dL (2-4); Magnesium 2.1 mg/dL (1.9-2.7); Phosphorus 3.6 mg/dL (2.5-5.0); Potassium 4.5 mmol/L (3.5-5.0); Total Bilirubin 0.2 mg/dL (0.2-1.0); Total Protein 5.9 g/dL (6.4-8.9)
[2018-06-04] MEDS: Baclofen TAB* 10 MG PO PRN ×2 (16:24→19:27)
[2018-06-04] MEDS: Atorvastatin* 80 MG TAB PO SCH (16:24)
--- NOTE | 2018-06-04 17:10 | PN ---
Subjective Date of Service: 06/04/18 Interval History: Pt seen and examined. Meds and labs reviewed. Spoke w/pt regarding results of CT scan and to have her see Drs. Diaz and Jean-Claude. Please see discussion below. CC: N/A ROS: Denied VALENCIA/dizziness, F/C, N/V, CP, SOB, increased cough, sputum production , abd pain, diarrhea, constipation, dysuria, myalgias, arthralgias, throat pain , and new skin lesions. The rest of the 14 point ROS are unremarkable. PHYSICAL EXAM: GEN APPEARANCE: Awake, not in acute distress HEENT: NC/AT, PERRLA, moist oral mucosa, (-) throat erythema NECK: Soft, supple, (-) cervical LAD, (-)JVD HEART: S1S2 WNL, RRR, No MRG CHEST: CTA, BL, GAE, No W/R/R ABD: Soft, ND/NT, NABS 4x Q EXT: No C/C/E SKIN: Warm to touch PSYCH: No active psychosis, hallucinations, depression, SI/HI Family History: Unchanged from Admission Social History: Unchanged from Admission Past Medical History: Unchanged from Admission Objective Active Medications: Acetaminophen (Tylenol Tab*) 975 mg PO Q6H [facility] Last Admin: 06/04/18 16:25 Dose: 975 mg Acetylcysteine (Acetylcysteine Cap (Renal)*) 1,200 mg PO BID [facility] Stop: 06/05/18 09:01 Last Admin: 06/04/18 07:59 Dose: 1,200 mg Amitriptyline HCl (Elavil Tab*) 50 mg PO BID [facility] Last Admin: 06/04/18 07:59 Dose: 50 mg Amlodipine Besylate (Norvasc Tab*) 2.5 mg PO DAILY [facility] Last Admin: 06/04/18 09:47 Dose: 2.5 mg Apixaban (Eliquis*) 5 mg PO BID [facility] Last Admin: 06/04/18 08:03 Dose: 5 mg Aspirin (Aspirin Ec Tab*) 81 mg PO DAILY [facility] Last Admin: 06/04/18 08:03 Dose: 81 mg Atorvastatin Calcium (Lipitor*) 80 mg PO 1700 [facility] Last Admin: 06/04/18 16:24 Dose: 80 mg Baclofen (Lioresal Tab*) 10 mg PO DAILY [facility] Last Admin: 06/04/18 08:02 Dose: 10 mg Baclofen (Lioresal Tab*) 5 mg PO TID PRN PRN Reason: pain Last Admin: 06/04/18 16:24 Dose: 5 mg Cyanocobalamin (Vitamin B12 Tab*) 1,000 mcg PO DAILY [facility] Last Admin: 06/04/18 08:03 Dose: 1,000 mcg Digoxin (Lanoxin Tab*) 0.125 mg PO 0800 [facility] Last Admin: 06/04/18 08:03 Dose: 0.125 mg Diltiazem HCl (Cardizem Cd Cap*) 360 mg PO 0800 [facility] Last Admin: 06/04/18 08:02 Dose: 360 mg Fluticasone Propionate (Flonase Nasal [place] 50mcg*) 1 spray BOTH NARES DAILY [facility] Last Admin: 06/04/18 07:57 Dose: 1 spray Folic Acid (Folvite Tab*) 1 mg PO DAILY [facility] Last Admin: 06/04/18 07:59 Dose: 1 mg Sodium Chloride (Ns 0.9% 1000 Ml*) 1,000 mls @ 75 mls/hr IV PER RATE [facility] Last Admin: 06/04/18 09:36 Dose: 75 mls/hr Lidocaine (Lidoderm 5% Patch*) 1 patch TRANSDERM DAILY [facility] Last Admin: 06/04/18 07:57 Dose: 1 patch Metoprolol Succinate (Toprol Xl Tab*) 150 mg PO 0800 [facility] Last Admin: 06/04/18 07:59 Dose: 150 mg Omeprazole (Prilosec Cap*) 20 mg PO DAILY [facility] Last Admin: 06/04/18 08:03 Dose: 20 mg Pharmacy Profile Note (Lidocaine Patch Remove*) 1 note N/A 2100 [facility] Last Admin: 06/03/18 19:57 Dose: 1 note Torsemide (Demadex*) 5 mg PO DAILY [facility] Last Admin: 06/04/18 08:04 Dose: 5 mg Vital Signs - 8 hr 06/04/18 11:57 Temperature 98.0 F Pulse Rate 68 Respiratory 16 Rate Blood Pressure 132/80 (mmHg) O2 Sat by Pulse 95 Oximetry Oxygen Devices in Use Now: None Result Diagrams: 06/04/18 09:37 06/04/18 09:37 Microbiology and Other Data: Microbiology 05/23/18 21:13 Urine Culture - Final Urine No Growth (<1,000 CFU/mL) Assess/Plan/Problems-Billing Assessment: Ms. Villarreal is a 72 year old female patient with PMH significant for HTN, dizziness and frequent falls who presented to ER with acute AMS. - Patient Problems (1) Chest pain Current Visit: Yes Status: Acute Code(s): R07.9 - CHEST PAIN, UNSPECIFIED SNOMED Code(s): 41630904 Comment: -Resolved -CXR ordered shows right peripheral midlung field lesion---an incidental finding given her CP is now resolved and the pain she complained about was more central than peripheral -Ordered CT w/contrast to better eval above -EKG shows A. flutter, with no new changes from previous -1st set of repeat troponins improved from previous and has normalized -Unlikely cardiac in nature and may possibly be related to hilar mass found in CTplease see discussion below -D-dimer WNL of her age group (2) Lesion of right lung Current Visit: Yes Status: Acute Code(s): R91.1 - SOLITARY PULMONARY NODULE SNOMED Code(s): 774779696 Comment: #Incidental lung lesion: -CT w/contrast of chest: R. perihilar mass; R. thyroid lobe nodule; stable L. pulmonary nodule (stable >2 yrs) -D/W Shoshana Diaz and Jean-Claude -Unfortunately, when I informed pt of R. perihilar mass that looks cancerous and especially ominous due to her family history, she mentioned she is not interested in having a biopsy done given she mentions her family members has had some metastatic CA she was told may have been made worse by biopsies. She re-iterated this with Dr. Bermeo when she recommended possible bronchoscopy with biopsy -Updated Dr. Diaz of above who mentions he will once again explain the dangers of not evaluating above lesion and will defer w/pt if continues to refuse -Although pt appears to have capacity to me, pt appears to be forgetful, although not unusual in the hospitalized setting; per Dr. Bermeo, pt does not remember that Dr. Diaz stopped by earlier and since pt was admitted for confusion, a re-evaluation of her capacity may needed to be documented prior to D/C (3) Altered mental status Current Visit: Yes Status: Acute Code(s): R41.82 - ALTERED MENTAL STATUS, UNSPECIFIED SNOMED Code(s): 615508617 Comment: -Resolvedhowever, please see above concern of pt forgetting that she has spoken w/Dr. Diaz; it could be that pt just simply forgot given the many visits she has had -Suspect secondary to polypharmacy primarily due to anticholinergic effect of Amytryptiline in addition to B12 deficiency - CT head negative, cultures negative - Neurology consult, input appreciated - MMA and homocysteine is elevated suggesting a B12 deficiency - EEG with no epileptiform changes - Repeat CT with no new pathology - Continue B12 supplementation and supportive care (4) B12 deficiency Current Visit: Yes Status: Acute Code(s): E53.8 - DEFICIENCY OF OTHER SPECIFIED B GROUP VITAMINS SNOMED Code(s): 847742091 Comment: -Currently on PO and no known hx of pernicious anemia -Will PO supplementation; pt has been given 1x IM dose of 1000 ug on 06/02/18 (5) Atrial fibrillation Current Visit: Yes Status: Chronic Code(s): I48.91 - UNSPECIFIED ATRIAL FIBRILLATION SNOMED Code(s): 19868853 Comment: - Afib/aflutter, rate controlled at baseline - Continue Eliquis, diltiazem, metoprolol, and digoxin (6) Unsteady gait Current Visit: Yes Status: Acute Code(s): R26.81 - UNSTEADINESS ON FEET SNOMED Code(s): 776881793 Comment: - Gait improving - No new infarct on initial or repeat CTs - Has history of degerative spinal disease and stenosis - PT following - Slowly reintroduce baclofen, amitriptyline for discomfort (suggest not increasing back to home dose and continued at reduced dosages) (7) Chronic kidney disease, stage 3 Current Visit: Yes Status: Chronic Code(s): N18.3 - CHRONIC KIDNEY DISEASE, STAGE 3 (MODERATE) SNOMED Code(s): 174424916 Comment: - At baseline (8) DVT prophylaxis Current Visit: Yes Status: Acute Code(s): XPZ0794 - SNOMED Code(s): 759354340 Comment: - Continue Eliquis Status and Disposition: -As above
[2018-06-04] MEDS: Lidocaine Patch REMOVE* 1 NOTE MISC SCH (19:28)
--- NOTE | 2018-06-04 20:04 | CONS ---
PULMONARY CONSULTATION REPORT: DATE OF CONSULT: 06/04/18 CONSULTATION REQUESTED BY: Dr. Getachew Pollack. REASON FOR CONSULTATION: Evaluation of abnormal chest x-ray and CT chest. 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 The patient with confusion. The patient has been having frequent falls recently. Her confusion has been intermittent as per the patient's daughter. She became significantly confused, was hallucinating and talking to her , which concerned the daughter and brought her to the emergency room for further evaluation. The patient's confusion was suspected secondary to polypharmacy due to anticholinergic effect of amitriptyline in addition to B12 deficiency. CT of the brain was negative for any acute pathology. Septic workup has been negative. Her methylmalonic acid and homocysteine levels were elevated with suggestion of B12 deficiency. EEG did not show any epileptiform changes. She was initiated on B12 supplementation and supportive care. Her confusion has since resolved and her mental status has been at baseline currently. In the interim, the patient was evaluated for chest pain. Chest pain would improve with palpation. Troponins were ordered at that point. She also had a chest x- ray that was performed. The patient was found to have an abnormality on chest x -ray and underwent further investigation with CT scan of the chest. I have personally reviewed chest x-ray from 06/02/[address] scan of the chest from . Chest x-ray showed evidence of hyperinflation. It also showed evidence of a nodular density overlying periphery of the right mid lung, which was new since February 2018. CT scan of the chest was personally reviewed and images were reviewed with the patient in detail at bedside today by me. The patient noted to have right perihilar mass measuring 2.7 x 1.8. She also had other small pulmonary nodules in the lingula measuring 0.5 and 0.4 cm. The patient also with significant mediastinal and right hilar adenopathy. The patient also with significant emphysematous changes. She was noted to have small bilateral effusions with loculated pockets in the right oblique fissure. Given these findings, pulmonary consultation was requested. I have seen and examined the patient at bedside. The patient did not seem to be confused; was alert, oriented x3. The patient denied any chest pain. The patient denies headaches, dizziness at this time. She denied urinary complaints. She denied any rash. She does have a history of dyspnea on exertion and chronic cough. She has been having falls recently and has history of dizziness. PAST MEDICAL HISTORY: 1. Recurrent falls due to unsteady gait. 2. Dizziness. 3. Hypertension. 4. Atrial fibrillation with tachy-magy syndrome. 5. Fibromyalgia. 6. Chronic back pain. 7. Anxiety/depression. 8. Osteoporosis. PAST SURGICAL HISTORY: 1. ORIF. 2. Tonsillectomy. 3. Appendectomy. 4. Bilateral carpal tunnel release. 5. Mitral valve replacement surgery. 6. Two-vessel CABG in September 2016. 7. Total abdominal hysterectomy and bilateral salpingo-oophorectomy. 8. Cholecystectomy. 9. Gastric stapling. MEDICATIONS: 1. Torsemide. 2. Pravastatin. 3. Omeprazole. 4. Metoprolol. 5. Folic acid. 6. Fluticasone. 7. Diltiazem. 8. Digoxin. 9. Baclofen. 10. Aspirin. 11. Amitriptyline. 12. Apixaban. ALLERGIES: No known drug allergies. FAMILY HISTORY: Noncontributory for the current complaint. SOCIAL HISTORY: The patient is former smoker; quit smoking approximately 2 months ago. She had multiple previous quitting attempts in the past as well. She has been smoking since age 19. Denied alcohol or recreational drug use. She lives with her daughter. REVIEW OF SYSTEMS: All review of systems performed and as per HPI. PHYSICAL EXAM: The patient is lying in bed, in no apparent distress, easily falls back to sleep. Vital Signs: Temperature 98, pulse 68 beats per minute, respiratory rate 16 per minute, O2 sat 95% on room air, blood pressure 132/80. HEENT: Pupils are equal and reactive to light. Mucous membranes moist. Lungs : Distant breath sounds, crackles at bases, no wheeze. Cardiovascular: S1, S2 present. Regular. No murmurs, gallops, or rubs. Abdomen: Soft, nontender, nondistended. Bowel sounds present. Extremities: Normal range of motion. No edema. Skin: No rash or bruises. Neuro: Alert, awake, oriented x3. DIAGNOSTIC STUDIES/LAB DATA: WBC count 10.4, hemoglobin 8.7, hematocrit 29, platelet count 212. Sodium 139, potassium 4.5, chloride 114, bicarb 18, BUN 27 , creatinine 0.9. Troponins elevated on 05/27/18, normalized now. Chest and CT scan of the chest, as described above. IMPRESSION AND RECOMMENDATIONS: 72-year-old female, former smoker with significant smoking history, admitted for altered mental status, attributed to polypharmacy with improvement in mental status and negative neurological workup. The patient had chest x-ray that was suggestive of abnormality on the right lung, which was further investigated with CT chest. CT chest did reveal significant mediastinal adenopathy and right perihilar mass. Given smoking history and her age, findings concerning for possible malignancy. The patient will benefit from bronchoscopy and endobronchial ultrasound-guided aspiration of the nodes. This will not only give the diagnosis but will also complete local staging. She will also need a PET scan as an outpatient to evaluate for any distant spread. She had mental status changes recently; however, MRI did not reveal evidence of metastatic lesion in the brain. I have reviewed CT chest images in detail with the patient. I have thoroughly explained the process of acquiring the biopsy. I have thoroughly discussed the procedure of bronchoscopy with endobronchial ultrasound. The patient reported that her and other family members have and she attributes that to the biopsy. The patient is with the belief that biopsy would result in spread of tumors. She believes that her family members because of tumor being spread as a result of biopsying the tumors. I have discussed that tumors spread hematogenously or through lymphatic system. I have also tried to explain to her that tumors continue to grow and it would be metastatic to other places and would not amenable to treatment at that time. I also explained to her that CT-guided biopsy would be more complicated and also she would need bronchoscopy anyway for lymph node staging if her biopsy was to be positive. I have addressed all her concerns and answered her questions to her satisfaction. The patient not decided about biopsy at this time. She mentioned to me that she would like to think about this and would let us whether she would want to consider this biopsy in the future. Rest of the management as per primary team. Thank you for allowing me to participate in the care of your patient. Discussed above recommendations and discussion with the patient with primary team, Dr. Pollack. [id number]/[facility] #: [id number]
[2018-06-05] MEDS: Acetaminophen TAB* 325 MG PO SCH ×4 (04:07→21:24)
[2018-06-05] MEDS: Baclofen TAB* 10 MG PO PRN ×2 (04:08→19:11)
[2018-06-05 08:33] LABS: ABS Basophils 0.1 10^3/ul (0-0.2); ABS Eosinophils 0.2 10^3/ul (0-0.6); ABS Lymphocytes 1.7 10^3/ul (1.0-4.8); ABS Monocytes 0.8 10^3/ul (0-0.8); ABS Neutrophils 7.5 10^3/ul (1.5-7.7); ABS Nucleated RBC 0 10^3/ul; Eosinophil % 1.6 %; Hematocrit 27 % (35-47); Hemoglobin 8.5 g/dl (12.0-16.0); Mean Corpuscular HGB Conc 31 g/dl (31-36); Mean Corpuscular Hemoglobin 25 pg (27-31); Mean Corpuscular Volume 81 fL (80-97); Nucleated Red Blood Cells % 0; Platelet Count 223 10^3/ul (150-450); Red Blood Count 3.38 10^6/ul (4.00-5.40); Red Cell Distribution Width 20 % (10.5-15); White Blood Count 10.3 10^3/ul (3.5-10.8)
[2018-06-05 08:44] LABS: BUN/Creatinine Ratio 24.4 (8-20); Calcium 8.6 mg/dL (8.6-10.3); EGFR Non-African American 68.7 (>60); Magnesium 2.1 mg/dL (1.9-2.7); Phosphorus 3.2 mg/dL (2.5-5.0); Potassium 4.2 mmol/L (3.5-5.0)
[2018-06-05] MEDS: Torsemide TAB* 20 MG PO SCH (08:46)
[2018-06-05] MEDS: amLODIPine TAB* 5 MG PO SCH (08:47)
[2018-06-05] MEDS: Digoxin TAB* 0.125 MG PO SCH (08:47)
[2018-06-05] MEDS: Amitriptyline TAB* 25 MG PO SCH ×2 (08:48→21:25)
[2018-06-05] MEDS: Diltiazem CD CAP* 180 MG PO SCH (08:48)
[2018-06-05] MEDS: Baclofen TAB* 10 MG PO SCH (08:49)
[2018-06-05] MEDS: Folic Acid TAB* 1 MG PO SCH (08:50)
[2018-06-05] MEDS: Aspirin EC TAB* 81 MG TAB.EC PO SCH (08:50)
[2018-06-05] MEDS: Omeprazole CAP* 20 MG PO SCH (08:50)
[2018-06-05] MEDS: Apixaban* 5 MG TAB PO SCH ×2 (08:50→21:24)
[2018-06-05] MEDS: Metoprolol Succinate XL TAB* 50 MG PO SCH (08:51)
[2018-06-05] MEDS: Cyanocobalamin TAB* 500 MCG PO SCH (08:51)
[2018-06-05] MEDS: Acetylcysteine CAP (RENAL)* 600 MG PO SCH (08:52)
[2018-06-05] MEDS: Fluticasone NASAL SPRAY 50MCG* 16 gm SPRAY BTL BOTH NARES SCH (08:53)
[2018-06-05] MEDS: Lidocaine PATCH 5%* 1 PATCH TRANSDERM SCH (08:54)
[2018-06-05] MEDS: NS 0.9% 1000 ML* 1,000 ML IV SCH (11:15)
[2018-06-05] MEDS: Atorvastatin* 80 MG TAB PO SCH (16:07)
--- NOTE | 2018-06-05 16:08 | PN ---
Subjective Date of Service: 06/05/18 Interval History: Denies any complaints.Reports feeling weak. Thinking about Biopsy Family History: Unchanged from Admission Social History: Unchanged from Admission Past Medical History: Unchanged from Admission Objective Active Medications: Acetaminophen (Tylenol Tab*) 975 mg PO Q6H [facility] Last Admin: 06/05/18 10:05 Dose: 975 mg Amitriptyline HCl (Elavil Tab*) 50 mg PO BID [facility] Last Admin: 06/05/18 08:48 Dose: 50 mg Amlodipine Besylate (Norvasc Tab*) 2.5 mg PO DAILY [facility] Last Admin: 06/05/18 08:47 Dose: 2.5 mg Apixaban (Eliquis*) 5 mg PO BID [facility] Last Admin: 06/05/18 08:50 Dose: 5 mg Aspirin (Aspirin Ec Tab*) 81 mg PO DAILY [facility] Last Admin: 06/05/18 08:50 Dose: 81 mg Atorvastatin Calcium (Lipitor*) 80 mg PO 1700 [facility] Last Admin: 06/04/18 16:24 Dose: 80 mg Baclofen (Lioresal Tab*) 10 mg PO DAILY [facility] Last Admin: 06/05/18 08:49 Dose: 10 mg Baclofen (Lioresal Tab*) 5 mg PO TID PRN PRN Reason: pain Last Admin: 06/05/18 04:08 Dose: 5 mg Cyanocobalamin (Vitamin B12 Tab*) 1,000 mcg PO DAILY [facility] Last Admin: 06/05/18 08:51 Dose: 1,000 mcg Digoxin (Lanoxin Tab*) 0.125 mg PO 0800 [facility] Last Admin: 06/05/18 08:47 Dose: 0.125 mg Diltiazem HCl (Cardizem Cd Cap*) 360 mg PO 0800 [facility] Last Admin: 06/05/18 08:48 Dose: 360 mg Fluticasone Propionate (Flonase Nasal [place] 50mcg*) 1 spray BOTH NARES DAILY [facility] Last Admin: 06/05/18 08:53 Dose: 1 spray Folic Acid (Folvite Tab*) 1 mg PO DAILY [facility] Last Admin: 06/05/18 08:50 Dose: 1 mg Sodium Chloride (Ns 0.9% 1000 Ml*) 1,000 mls @ 75 mls/hr IV PER RATE [facility] Last Admin: 06/05/18 11:15 Dose: 75 mls/hr Lidocaine (Lidoderm 5% Patch*) 1 patch TRANSDERM DAILY [facility] Last Admin: 06/05/18 08:54 Dose: 1 patch Metoprolol Succinate (Toprol Xl Tab*) 150 mg PO 0800 [facility] Last Admin: 06/05/18 08:51 Dose: 150 mg Omeprazole (Prilosec Cap*) 20 mg PO DAILY [facility] Last Admin: 06/05/18 08:50 Dose: 20 mg Pharmacy Profile Note (Lidocaine Patch Remove*) 1 note N/A 2100 [facility] Last Admin: 06/04/18 19:28 Dose: 1 note Torsemide (Demadex*) 5 mg PO DAILY [facility] Last Admin: 06/05/18 08:46 Dose: 5 mg Vital Signs - 8 hr 06/05/18 06/05/18 08:47 11:25 Temperature 98.9 F Pulse Rate 76 70 Respiratory 20 Rate Blood Pressure 157/52 (mmHg) O2 Sat by Pulse 96 Oximetry Oxygen Devices in Use Now: None Eyes: No Scleral Icterus Ears/Nose/Mouth/Throat: NL Teeth, Lips, Gums Neck: NL Appearance and Movements; NL JVP Respiratory: Symmetrical Chest Expansion and Respiratory Effort Cardiovascular: NL Sounds; No Murmurs; No JVD Abdominal: NL Sounds; No Tenderness; No Distention Extremities: No Edema Skin: No Rash or Ulcers Neurological: Alert and Oriented x 3 Result Diagrams: 06/05/18 08:16 06/05/18 08:16 Microbiology and Other Data: Microbiology 05/23/18 21:13 Urine Culture - Final Urine No Growth (<1,000 CFU/mL) Assess/Plan/Problems-Billing Assessment: Ms. Villarreal is a 72 year old female patient with PMH significant for HTN, dizziness and frequent falls who presented to ER with acute AMS. - Patient Problems (1) Lesion of right lung Current Visit: Yes Status: Acute Code(s): R91.1 - SOLITARY PULMONARY NODULE SNOMED Code(s): 483360595 Comment: #Incidental lung lesion: -CT w/contrast of chest: R. perihilar mass; R. thyroid lobe nodule; stable L. pulmonary nodule (stable >2 yrs) -D/W Shoshana Diaz and Jean-Claude -Unfortunately, when Dr Pollack informed pt of R. perihilar mass that looks cancerous and especially ominous due to her family history, she mentioned she is not interested in having a biopsy done given she mentions her family members has had some metastatic CA she was told may have been made worse by biopsies. She re-iterated this with Dr. Bermeo when she recommended possible bronchoscopy with biopsy -Updated Dr. Diaz of above who mentions he will once again explain the dangers of not evaluating above lesion and will defer w/pt if continues to refuse -Although pt appears to have capacity to me, pt appears to be forgetful, although not unusual in the hospitalized setting; per Dr. Bermeo, pt does not remember that Dr. Diaz stopped by earlier and since pt was admitted for confusion, a re-evaluation of her capacity may needed to be documented prior to D/C (2) Altered mental status Current Visit: Yes Status: Acute Code(s): R41.82 - ALTERED MENTAL STATUS, UNSPECIFIED SNOMED Code(s): 521624196 Comment: -Resolvedhowever, please see above concern of pt forgetting that she has spoken w/Dr. Diaz; it could be that pt just simply forgot given the many visits she has had -Suspect secondary to polypharmacy primarily due to anticholinergic effect of Amytryptiline in addition to B12 deficiency - CT head negative, cultures negative - Neurology consult, input appreciated - MMA and homocysteine is elevated suggesting a B12 deficiency - EEG with no epileptiform changes - Repeat CT with no new pathology - Continue B12 supplementation and supportive care (3) B12 deficiency Current Visit: Yes Status: Acute Code(s): E53.8 - DEFICIENCY OF OTHER SPECIFIED B GROUP VITAMINS SNOMED Code(s): 105250301 Comment: -Currently on PO and no known hx of pernicious anemia -Will PO supplementation; pt has been given 1x IM dose of 1000 ug on 06/02/18 (4) Chest pain Current Visit: Yes Status: Acute Code(s): R07.9 - CHEST PAIN, UNSPECIFIED SNOMED Code(s): 34842691 Comment: -Resolved -CXR ordered shows right peripheral midlung field lesion---an incidental finding given her CP is now resolved and the pain she complained about was more central than peripheral -Ordered CT w/contrast to better eval above -EKG shows A. flutter, with no new changes from previous -1st set of repeat troponins improved from previous and has normalized -Unlikely cardiac in nature and may possibly be related to hilar mass found in CTplease see discussion below -D-dimer WNL of her age group (5) DVT prophylaxis Current Visit: Yes Status: Acute Code(s): ZSJ1784 - SNOMED Code(s): 720970242 Comment: - Continue Eliquis (6) Atrial fibrillation Current Visit: Yes Status: Chronic Code(s): I48.91 - UNSPECIFIED ATRIAL FIBRILLATION SNOMED Code(s): 30862136 Comment: - Afib/aflutter, rate controlled at baseline - Continue Eliquis, diltiazem, metoprolol, and digoxin Status and Disposition: -As above
[2018-06-05] MEDS: Lidocaine Patch REMOVE* 1 NOTE MISC SCH (21:26)
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
[2018-06-06] MEDS: NS 0.9% 1000 ML* 1,000 ML IV SCH ×2 (01:03→15:45)
[2018-06-06] MEDS: Acetaminophen TAB* 325 MG PO SCH ×4 (03:14→21:17)
[2018-06-06] MEDS: Apixaban* 5 MG TAB PO SCH ×2 (07:43→21:17)
[2018-06-06] MEDS: Cyanocobalamin TAB* 500 MCG PO SCH (07:44)
[2018-06-06] MEDS: Omeprazole CAP* 20 MG PO SCH (07:44)
[2018-06-06] MEDS: Digoxin TAB* 0.125 MG PO SCH (07:44)
[2018-06-06] MEDS: Folic Acid TAB* 1 MG PO SCH (07:44)
[2018-06-06] MEDS: Metoprolol Succinate XL TAB* 50 MG PO SCH (07:44)
[2018-06-06] MEDS: Diltiazem CD CAP* 180 MG PO SCH (07:44)
[2018-06-06] MEDS: Baclofen TAB* 10 MG PO SCH (07:46)
[2018-06-06] MEDS: Aspirin EC TAB* 81 MG TAB.EC PO SCH (07:46)
[2018-06-06] MEDS: Amitriptyline TAB* 25 MG PO SCH ×2 (07:46→21:17)
[2018-06-06] MEDS: Torsemide TAB* 20 MG PO SCH (07:47)
[2018-06-06] MEDS: amLODIPine TAB* 5 MG PO SCH (07:49)
[2018-06-06] MEDS: Fluticasone NASAL SPRAY 50MCG* 16 gm SPRAY BTL BOTH NARES SCH (07:53)
[2018-06-06] MEDS: Lidocaine PATCH 5%* 1 PATCH TRANSDERM SCH (09:52)
--- NOTE | 2018-06-06 13:42 | PN ---
Subjective Date of Service: 06/06/18 Interval History: Pt depressed.Decided not to get biopsy for now.However cannot go back and stay with her daughter and will need placement. Open to thinking about this when stable and willing to f/u as OP with dr bermeo Family History: Unchanged from Admission Social History: Unchanged from Admission Past Medical History: Unchanged from Admission Objective Active Medications: Acetaminophen (Tylenol Tab*) 975 mg PO Q6H [facility] Last Admin: 06/06/18 09:51 Dose: 975 mg Amitriptyline HCl (Elavil Tab*) 50 mg PO BID [facility] Last Admin: 06/06/18 07:46 Dose: 50 mg Amlodipine Besylate (Norvasc Tab*) 2.5 mg PO DAILY [facility] Last Admin: 06/06/18 07:49 Dose: 2.5 mg Apixaban (Eliquis*) 5 mg PO BID [facility] Last Admin: 06/06/18 07:43 Dose: 5 mg Aspirin (Aspirin Ec Tab*) 81 mg PO DAILY [facility] Last Admin: 06/06/18 07:46 Dose: 81 mg Atorvastatin Calcium (Lipitor*) 80 mg PO 1700 [facility] Last Admin: 06/05/18 16:07 Dose: 80 mg Baclofen (Lioresal Tab*) 10 mg PO DAILY [facility] Last Admin: 06/06/18 07:46 Dose: 10 mg Baclofen (Lioresal Tab*) 5 mg PO TID PRN PRN Reason: pain Last Admin: 06/05/18 19:11 Dose: 5 mg Cyanocobalamin (Vitamin B12 Tab*) 1,000 mcg PO DAILY [facility] Last Admin: 06/06/18 07:44 Dose: 1,000 mcg Digoxin (Lanoxin Tab*) 0.125 mg PO 0800 [facility] Last Admin: 06/06/18 07:44 Dose: 0.125 mg Diltiazem HCl (Cardizem Cd Cap*) 360 mg PO 0800 [facility] Last Admin: 06/06/18 07:44 Dose: 360 mg Fluticasone Propionate (Flonase Nasal [place] 50mcg*) 1 spray BOTH NARES DAILY [facility] Last Admin: 06/06/18 07:53 Dose: 1 spray Folic Acid (Folvite Tab*) 1 mg PO DAILY [facility] Last Admin: 06/06/18 07:44 Dose: 1 mg Sodium Chloride (Ns 0.9% 1000 Ml*) 1,000 mls @ 75 mls/hr IV PER RATE [facility] Last Admin: 06/06/18 01:03 Dose: 75 mls/hr Lidocaine (Lidoderm 5% Patch*) 1 patch TRANSDERM DAILY [facility] Last Admin: 06/06/18 09:52 Dose: Not Given Metoprolol Succinate (Toprol Xl Tab*) 150 mg PO 0800 [facility] Last Admin: 06/06/18 07:44 Dose: 150 mg Omeprazole (Prilosec Cap*) 20 mg PO DAILY [facility] Last Admin: 06/06/18 07:44 Dose: 20 mg Pharmacy Profile Note (Lidocaine Patch Remove*) 1 note N/A 2100 [facility] Last Admin: 06/05/18 21:26 Dose: 1 note Torsemide (Demadex*) 5 mg PO DAILY [facility] Last Admin: 06/06/18 07:47 Dose: 5 mg Vital Signs - 8 hr 06/06/18 06/06/18 06/06/18 07:18 07:24 07:44 Temperature 98.1 F Pulse Rate 72 72 70 Respiratory 18 Rate Blood Pressure 191/64 195/64 (mmHg) O2 Sat by Pulse 98 Oximetry 06/06/18 06/06/18 07:56 08:00 Temperature Pulse Rate Respiratory 18 Rate Blood Pressure 208/86 (mmHg) O2 Sat by Pulse Oximetry Oxygen Devices in Use Now: None Eyes: No Scleral Icterus Ears/Nose/Mouth/Throat: NL Teeth, Lips, Gums Neck: NL Appearance and Movements; NL JVP Respiratory: Symmetrical Chest Expansion and Respiratory Effort, Clear to Auscultation Cardiovascular: NL Sounds; No Murmurs; No JVD Abdominal: NL Sounds; No Tenderness; No Distention Extremities: No Edema Skin: No Rash or Ulcers Neurological: Alert and Oriented x 3 Result Diagrams: 06/05/18 08:16 06/05/18 08:16 Microbiology and Other Data: Microbiology 05/23/18 21:13 Urine Culture - Final Urine No Growth (<1,000 CFU/mL) Assess/Plan/Problems-Billing Assessment: Ms. Villarreal is a 72 year old female patient with PMH significant for HTN, dizziness and frequent falls who presented to ER with acute AMS. - Patient Problems (1) Lesion of right lung Current Visit: Yes Status: Acute Code(s): R91.1 - SOLITARY PULMONARY NODULE SNOMED Code(s): 300816401 Comment: #Incidental lung lesion: -CT w/contrast of chest: R. perihilar mass; R. thyroid lobe nodule; stable L. pulmonary nodule (stable >2 yrs) -D/W Shoshana Diaz and Jean-Claude -Unfortunately, when Dr Pollack informed pt of R. perihilar mass that looks cancerous and especially ominous due to her family history, she mentioned she is not interested in having a biopsy done given she mentions her family members has had some metastatic CA she was told may have been made worse by biopsies. She re-iterated this with Dr. Bermeo when she recommended possible bronchoscopy with biopsy -Updated Dr. Diaz of above who mentions he will once again explain the dangers of not evaluating above lesion and will defer w/pt if continues to refuse -Although pt appears to have capacity to me, pt appears to be forgetful, although not unusual in the hospitalized setting; per Dr. Bermeo, pt does not remember that Dr. Diaz stopped by earlier and since pt was admitted for confusion, a re-evaluation of her capacity may needed to be documented prior to D/C -Wants to follow up as OP with Dr Bermeo.For now does not want the biopsy and further w/u (2) Altered mental status Current Visit: Yes Status: Acute Code(s): R41.82 - ALTERED MENTAL STATUS, UNSPECIFIED SNOMED Code(s): 650426887 Comment: -Resolvedhowever, please see above concern of pt forgetting that she has spoken w/Dr. Diaz; it could be that pt just simply forgot given the many visits she has had -Suspect secondary to polypharmacy primarily due to anticholinergic effect of Amytryptiline in addition to B12 deficiency - CT head negative, cultures negative - Neurology consult, input appreciated - MMA and homocysteine is elevated suggesting a B12 deficiency - EEG with no epileptiform changes - Repeat CT with no new pathology - Continue B12 supplementation and supportive care (3) B12 deficiency Current Visit: Yes Status: Acute Code(s): E53.8 - DEFICIENCY OF OTHER SPECIFIED B GROUP VITAMINS SNOMED Code(s): 148489644 Comment: -Currently on PO and no known hx of pernicious anemia -Will PO supplementation; pt has been given 1x IM dose of 1000 ug on 06/02/18 (4) Chest pain Current Visit: Yes Status: Acute Code(s): R07.9 - CHEST PAIN, UNSPECIFIED SNOMED Code(s): 74613438 Comment: -Resolved -CXR ordered shows right peripheral midlung field lesion---an incidental finding given her CP is now resolved and the pain she complained about was more central than peripheral -Ordered CT w/contrast to better eval above -EKG shows A. flutter, with no new changes from previous -1st set of repeat troponins improved from previous and has normalized -Unlikely cardiac in nature and may possibly be related to hilar mass found in CTplease see discussion below -D-dimer WNL of her age group (5) DVT prophylaxis Current Visit: Yes Status: Acute Code(s): FTH4750 - SNOMED Code(s): 501935453 Comment: - Continue Eliquis (6) Atrial fibrillation Current Visit: Yes Status: Chronic Code(s): I48.91 - UNSPECIFIED ATRIAL FIBRILLATION SNOMED Code(s): 54503437 Comment: - Afib/aflutter, rate controlled at baseline - Continue Eliquis, diltiazem, metoprolol, and digoxin Status and Disposition: PT/OT.Needs placement .Discussion with case management
[2018-06-06] MEDS: Atorvastatin* 80 MG TAB PO SCH (16:11)
[2018-06-06] MEDS: Baclofen TAB* 10 MG PO PRN (18:10)
[2018-06-06] MEDS: Lidocaine Patch REMOVE* 1 NOTE MISC SCH (21:19)
[2018-06-07] MEDS: Acetaminophen TAB* 325 MG PO SCH ×2 (03:23→11:21)
[2018-06-07] MEDS: NS 0.9% 1000 ML* 1,000 ML IV SCH (04:38)
[2018-06-07] MEDS: Lidocaine PATCH 5%* 1 PATCH TRANSDERM SCH (07:58)
[2018-06-07] MEDS: Aspirin EC TAB* 81 MG TAB.EC PO SCH (07:59)
[2018-06-07] MEDS: Amitriptyline TAB* 25 MG PO SCH (07:59)
[2018-06-07] MEDS: Folic Acid TAB* 1 MG PO SCH (07:59)
[2018-06-07] MEDS: Cyanocobalamin TAB* 500 MCG PO SCH (07:59)
[2018-06-07] MEDS: Apixaban* 5 MG TAB PO SCH (07:59)
[2018-06-07] MEDS: Diltiazem CD CAP* 180 MG PO SCH (07:59)
[2018-06-07] MEDS: Metoprolol Succinate XL TAB* 50 MG PO SCH (08:00)
[2018-06-07] MEDS: Omeprazole CAP* 20 MG PO SCH (08:00)
[2018-06-07] MEDS: amLODIPine TAB* 5 MG PO SCH (08:01)
[2018-06-07] MEDS: Baclofen TAB* 10 MG PO SCH (08:01)
[2018-06-07] MEDS: Torsemide TAB* 20 MG PO SCH (08:02)
[2018-06-07] MEDS: Digoxin TAB* 0.125 MG PO SCH (08:03)
--- NOTE | 2018-06-07 10:11 | PN ---
Subjective Date of Service: 06/07/18 Interval History: Ms. Villarreal denies any complaint. She is agreeable for outpatient follow up for bronchosopy with biopsy after the holidays with Dr. Bermeo. She is also amenable for discharge to [facility], after long discussions with her daughter. She denies acute complaint today. Family History: Unchanged from Admission Social History: Unchanged from Admission Past Medical History: Unchanged from Admission Objective Active Medications: Acetaminophen (Tylenol Tab*) 975 mg PO Q6H CARLOS MANUEL Amitriptyline HCl (Elavil Tab*) 50 mg PO BID CARLOS MANUEL Amlodipine Besylate (Norvasc Tab*) 2.5 mg PO DAILY CARLOS MANUEL Apixaban (Eliquis*) 5 mg PO BID CARLOS MANUEL Aspirin (Aspirin Ec Tab*) 81 mg PO DAILY CARLOS MANUEL Atorvastatin Calcium (Lipitor*) 80 mg PO 1700 CARLOS MANUEL Baclofen (Lioresal Tab*) 10 mg PO DAILY CARLOS MANUEL Baclofen (Lioresal Tab*) 5 mg PO TID PRN Cyanocobalamin (Vitamin B12 Tab*) 1,000 mcg PO DAILY [facility] Digoxin (Lanoxin Tab*) 0.125 mg PO 0800 CARLOS MANUEL Diltiazem HCl (Cardizem Cd Cap*) 360 mg PO 0800 CARLOS MANUEL Fluticasone Propionate (Flonase Nasal [place] 50mcg*) 1 spray BOTH NARES DAILY CARLOS MANUEL Folic Acid (Folvite Tab*) 1 mg PO DAILY [facility] Sodium Chloride (Ns 0.9% 1000 Ml*) 1,000 mls @ 75 mls/hr IV PER RATE [facility] Lidocaine (Lidoderm 5% Patch*) 1 patch TRANSDERM DAILY [facility] Metoprolol Succinate (Toprol Xl Tab*) 150 mg PO 0800 CARLOS MANUEL Omeprazole (Prilosec Cap*) 20 mg PO DAILY [facility] Pharmacy Profile Note (Lidocaine Patch Remove*) 1 note N/A 2100 CARLOS MANUEL Torsemide (Demadex*) 5 mg PO DAILY [facility] Vital Signs: Temp Pulse Resp BP Pulse Ox 97.8 F 120 19 172/87 96 06/07/18 07:56 06/07/18 08:03 06/07/18 08:24 06/07/18 07:56 06/07/18 07:56 Oxygen Devices in Use Now: Nasal Cannula Appearance: Female lying in bed in NAD Eyes: No Scleral Icterus Ears/Nose/Mouth/Throat: Mucous Membranes Moist Neck: Trachea Midline Respiratory: Symmetrical Chest Expansion and Respiratory Effort, Clear to Auscultation Cardiovascular: NL Sounds; No Murmurs; No JVD, No Edema Abdominal: NL Sounds; No Tenderness; No Distention Extremities: No Edema Skin: No Rash or Ulcers Neurological: Alert and Oriented x 3, NL Muscle Strength and Tone Nutrition: Taking PO's Result Diagrams: 06/05/18 08:16 06/05/18 08:16 Microbiology and Other Data: . Assess/Plan/Problems-Billing Assessment: Ms. Villarreal is a 72 year old female patient with PMH significant for HTN, dizziness and frequent falls who presented to ER with acute AMS. - Patient Problems (1) Altered mental status Comment: -Resolved. -Suspect secondary to polypharmacy primarily due to anticholinergic effect of Amytryptiline in addition to B12 deficiency - CT head negative, cultures negative. Neurology consult, input appreciated. EEG with no epileptiform changes - MMA and homocysteine is elevated suggesting a B12 deficienc. Continue B12 supplementation and supportive care (2) Lesion of right lung Comment: - Incidental lung lesion: CT w/contrast of chest: R. perihilar mass; R. thyroid lobe nodule; stable L. pulmonary nodule (stable >2 yrs) - D/W Shoshana Diaz and Jean-Claude - Patient amenable to outpatient follow up for biopsy after the holidays, to be arranged with Dr. Bermeo (3) B12 deficiency Comment: -Currently on PO and no known hx of pernicious anemia -Will PO supplementation; pt has been given 1x IM dose of 1000 ug on 06/02/18 (4) Anemia Comment: - Baseline since 02/06 - Suspect anemia of chronic disease with component of Vit B12 def (5) Unsteady gait Comment: - Gait improving - No new infarct on initial or repeat CTs - Has history of degerative spinal disease and stenosis - PT following (6) Chronic pain Comment: - Continue amitriptyline (at reduced dose) - Oxycodone discontinued after episode of delirium - She wants to try some herbal supplements at home and avoid narcotics - Will start Tylenol 975 mg routine Q6H (7) Hypertension Comment: - SBP 170-200 - Increase amlodipine, continue metoprolol, torsemide, and diltiazem (8) Atrial fibrillation Comment: - Afib/aflutter, rate uncontrolled for brief periods - Continue Eliquis, diltiazem, metoprolol, and digoxin (9) Chronic kidney disease, stage 3 Comment: - At baseline (10) History of CVA (cerebrovascular accident) Comment: - Continue asa and statin and eliquis - No new stroke on CT (11) DVT prophylaxis Comment: - Continue Eliquis (12) Full code status Comment: Status and Disposition: Inpatient. Discharge to [facility].
[2018-06-07] MEDS ORDERED: amLODIPine TAB* 5 MG PO ONE (10:18)
--- NOTE | 2018-06-07 11:14 | PN ---
Progress Note - Progress Note Date of Service: 06/07/18 - Pulm f/u note Note: Pt seen and examined at bedside. Pt reports feeling better. Denies SOB, cough, chest pain, headaches Active Medications Generic Name Dose Route Start Last Admin Trade Name Freq PRN Reason Stop Dose Admin Acetaminophen 975 mg 05/31/18 16:00 06/07/18 03:23 Tylenol Tab* PO 975 mg Q6H CARLOS MANUEL Administration Amitriptyline HCl 50 mg 05/28/18 21:00 06/07/18 07:59 Elavil Tab* PO 50 mg BID CARLOS MANUEL Administration Amlodipine Besylate 5 mg 06/08/18 09:00 Norvasc Tab* PO DAILY CARLOS MANUEL Apixaban 5 mg 05/28/18 08:00 06/07/18 07:59 Eliquis* PO 5 mg BID CARLOS MANUEL Administration Aspirin 81 mg 05/28/18 08:00 06/07/18 07:59 Aspirin Ec Tab* PO 81 mg DAILY CARLOS MANUEL Administration Atorvastatin Calcium 80 mg 05/24/18 17:00 06/06/18 16:11 Lipitor* PO 80 mg 1700 CARLOS MANUEL Administration Baclofen 10 mg 05/25/18 19:00 06/07/18 08:01 Lioresal Tab* PO 10 mg DAILY CARLOS MANUEL Administration Baclofen 5 mg 05/26/18 00:01 06/06/18 18:10 Lioresal Tab* PO 5 mg TID PRN Administration pain Cyanocobalamin 1,000 mcg 05/30/18 09:00 06/07/18 07:59 Vitamin B12 Tab* PO 1,000 mcg DAILY CARLOS MANUEL Administration Digoxin 0.125 mg 06/01/18 08:00 06/07/18 08:03 Lanoxin Tab* PO 0.125 mg 0800 CARLOS MANUEL Administration Diltiazem HCl 360 mg 06/01/18 08:00 06/07/18 07:59 Cardizem Cd Cap* PO 360 mg 0800 CARLOS MANUEL Administration Fluticasone Propionate 1 spray 05/24/18 09:00 06/06/18 07:53 Flonase Nasal [place] 50mcg* BOTH NARES 1 spray DAILY CARLOS MANUEL Administration Folic Acid 1 mg 05/24/18 09:00 06/07/18 07:59 Folvite Tab* PO 1 mg DAILY CARLOS MANUEL Administration Sodium Chloride 1,000 mls @ 75 mls/hr 06/03/18 18:30 06/07/18 04:38 Ns 0.9% 1000 Ml* IV 75 mls/hr PER RATE CARLOS MANUEL Administration Lidocaine 1 patch 05/24/18 17:00 06/07/18 07:58 Lidoderm 5% Patch* TRANSDERM 1 patch DAILY CARLOS MANUEL Administration Metoprolol Succinate 150 mg 06/01/18 08:00 06/07/18 08:00 Toprol Xl Tab* PO 150 mg 0800 CARLOS MANUEL Administration Omeprazole 20 mg 05/24/18 09:00 06/07/18 08:00 Prilosec Cap* PO 20 mg DAILY CARLOS MANUEL Administration Pharmacy Profile Note 1 note 05/24/18 21:00 06/06/18 21:19 Lidocaine Patch Remove* N/A Not Given 2100 CARLOS MANUEL Torsemide 5 mg 05/28/18 08:00 06/07/18 08:02 Demadex* PO 5 mg DAILY CARLOS MANUEL Administration Vital Signs Temp Pulse Resp BP Pulse Ox 97.8 F 120 19 172/87 96 06/07/18 07:56 06/07/18 08:03 06/07/18 08:24 06/07/18 07:56 06/07/18 07:56 O/E: Pt in NAD HEENT: No JVD Lungs: Good a/e b/l, decreased at rt base CVS: S1, S2+, regular Abd: Soft, BS+ Ext: Normal ROM Neuro: Alert, awake, no focal deficits Skin: No rash Labs: No new labs I/R: 72 year old f with PMH significant for HTN, dizziness, frequent falls who presented to ER with acute AMS. Neurological w/u negative other than low B1 levels In course of further investigations, pt noted to have abnormal CXR with prominance of rt hilum, CT chest confirming Rt perihilar mass, signficant rt para tracheal and subcarinal adenoapthy Given smoking history these findings were concerning for maligancncy I have personally reviewed CT chest images with pt, explained concern with malignancy and need for biopsy. I have described bronchoscopy/EBUs procedure in detail and associated risks with her Pt has expressed that she is concerned that biopsy would result in spread of cancer She also reported that her family members were dx with metastatic cancer and she believes this has happened due to biopsy procedure itself I have explained to her that this is standard method of obtaining dx and that cancers tend to grow and spread if not treated I have also discussed other possibilities for the CT findings including infectious and inflammatory etiologies even though these are less likely During todays visit, pt recognized me by my name, remembers the conversation that we had on Thursday and reported her willingness to undergo biopsy after having thought about it She is concerned at this time regarding any pain and suffering she would go through She also mentioned that if dx and treating would only prolong her life without any quality in it she would not have that She reported feeling better after I have mentioned that her wishes would be honored and that cancer resource representatives would help her with managing her appointments and focus would be also on quality of life She has agreed to do biopsy after the holidays She is also requesting arrangements for d/c planning as her daughter would not be able to care for her anymore Will make arrangements for bronchoscopy/EBUS as out pt in early June as out pt Total time 45 minutes most of which is direct face to face contact D/w Opal Strong
[2018-06-07 11:19] VITALS: BP 140/61
[2018-06-07] MEDS: Fluticasone NASAL SPRAY 50MCG* 16 gm SPRAY BTL BOTH NARES SCH (11:22)
--- NOTE | 2018-06-07 13:03 | DS ---
CC: Dr. Batres * DATE OF ADMISSION: 05/23/2018. DATE OF DISCHARGE: 06/07/2018. ATTENDING PHYSICIAN: Dr. Lorena Laguna * (dictation provided by Oapl Strong NP ). PRIMARY DIAGNOSES: 1. Altered mental status with hallucinations thought to be secondary to polypharmacy and vitamin B12 deficiency. 2. Hypertension, uncontrolled. SECONDARY DIAGNOSES: 1. History of frequent falls with unsteady gait. 2. History of dizziness. 3. Hypertension. 4. Atrial fibrillation with tachybrady syndrome, status post pacemaker. 5. Fibromyalgia and chronic back pain. 6. Anxiety. 7. Depression. 8. Osteoporosis. PAST SURGICAL HISTORY: 1. Status post right arm ORIF. 2. Status post tonsillectomy. 3. Status post appendectomy. 4. Status post bilateral carpal tunnel release. 5. Status post mitral valve replacement, porcine valve with two vessel CABG in September 2016. 6. Status post total abdominal hysterectomy with bilateral salpingo- oophorectomy. 7. Status post cholecystectomy. 8. Status post gastric stapling. MEDICATIONS AT THE TIME OF DISCHARGE: 1. Pravastatin 40 mg p.o. at bedtime. 2. Torsemide 5 mg p.o. daily. 3. Omeprazole 20 mg p.o. daily. 4. Metoprolol Succinate 150 mg p.o. daily. 5. Folic Acid 1 mg p.o. daily. 6. Fluticasone nasal spray one spray both nares daily. 7. Diltiazem CD 360 mg p.o. daily. 8. Digoxin 125 mcg p.o. daily. 9. Baclofen 10 mg p.o. daily with 5 mg p.o. t.i.d. prn. 10. Aspirin 81 mg p.o. daily. 11. Apixaban 5 mg p.o. b.i.d. 12. Amlodipine 5 mg p.o. daily (new medication). 13. Lidocaine patch 5% one patch transdermally daily (new medication). 14. Cyanocobalamin 1,000 mcg p.o. daily (new medication). 15. Amitriptyline 50 mg p.o. b.i.d. (new reduced dose). 16. Tylenol 975 mg p.o. q.6 hours prn. HOSPITAL COURSE: Ms. Villarreal is a 72-year-old female who originally presented to the hospital on 05/23/2018 with concern for altered mental status and hallucinations. Please see the dictated history and physical from myself for complete details. In brief, the patient's daughter, with whom she lives, states that the patient had had intermittent periods for some time where she would become quite confused, but was easily reoriented. She has also had frequent falls. The day prior to admission, she was very confused and hallucinating and talking to her . She was described as having jerking movements and being unable to even bring her glass to her mouth. By that evening when the symptoms did not resolve, the family called EMS to have her brought to the hospital, but the patient seemed a bit more coherent at that point and refused evaluation in the hospital. In the morning, the patient again was hallucinating and having intermittent jerking of her arms. She fell multiple times and ultimately was brought to the ED for evaluation. Here in the emergency room on arrival, her labs were unremarkable except for an elevated troponin to 0.11; however, this was consistent with a history of elevated troponins in the past. Her BNP was 341. Again this was consistent with previous. Her CRP was only 4.43. She has no leukocytosis. Her vital signs were stable. Ms. Villarreal was admitted to the hospital with concern for altered mental status. It appeared that she had a toxic metabolic encephalopathy as evidence by this alteration in her mental status and her shaking muscular twitches. She had a CT of the brain which showed no abnormality. Her electrolytes were normal. It was thought that perhaps her symptoms were related to overmedication. She was seen in consultation by Dr. Cecil Gage the following morning from the Neurology team and I refer you to his notes for full details. He recommended an EEG which was obtained and showed no epileptiform discharges. She was unable to have an MRI and therefore repeat CTA was recommended to look for an evolving stroke. Repeat CT was negative. He recommended stopping her tricyclic antidepressant which we did do. We also decreased her Amitriptyline dose and her Baclofen dosage. The only abnormality otherwise noted was a mildly low vitamin B12 at 240 and for this reason vitamin B12 supplementation was undertaken as well. On 06/02/2018, the patient complained of chest pain and had a chest x-ray which showed a nodular density overlying the periphery of the right mid lung field, new from 03/21/2018. For this reason, she had a CT chest on 06/03/2018 which showed a right perihilar mass with abnormal ipsilateral lymph nodes and a right pleural effusion which may be malignant. 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 Recommend PET/CT, thoracentesis, and right perihilar mass biopsy for complete staging. For this reason, the patient did go on and have a consultation with both Dr. Bermeo from the Pulmonology team and Dr. Diaz from the Oncology team. The recommendation from both the specialist was that the patient have a bronchoscopy with biopsy. The patient initially refused, but now after discussion with Dr. Bermeo again today, the patient is willing to consider outpatient biopsy after the holidays. She is asymptomatic. Her vitals are stable. She is currently on room air. Ms. Villarreal is medically stable for discharge to [email or web address] as her daughter is not able to continue to care for her independently at home any longer. The patient will need outpatient follow-up with Dr. Bermeo for the mentioned biopsy. She will also need a follow-up with her primary care physician or the providers at [facility] for monitoring of her vitamin B12 deficiency , adjustment of blood pressure medications as her blood pressure has remained uncontrolled at times while in the hospital, though at the time of discharge it was 140/61. She also has some intermittently high heart rates with uncontrolled atrial fibrillation, but these only last a few minutes and she is already on a high dose of Metoprolol Succinate, Diltiazem, and Digoxin. She will need close follow-up for consideration of possible follow-up with Cardiology for this indication, though she has remained asymptomatic despite imperfect heart rate control. Ms. Villarreal is medically stable for discharge to [facility]. DISPOSITION: To [facility]. DIET: Low salt. ACTIVITY: As tolerated. FOLLOW-UP PLANS: 1. Please follow-up with Dr. Bermeo regarding biopsy. 2. Please consider follow-up with primary care regarding blood pressure management. 3. Please consider follow-up with Cardiology regarding any issue with management of atrial fibrillation. Approximately 60 minutes were spent in the discharge of this patient, more than half that time was spent with the patient at the bedside reviewing the events leading up to this hospitalization and during this hospitalization, performing the physical examination, and reviewing the plan of care. OPAL STRONG FIELD SUPPORT SPECIALIST [id number]/[facility] [place] #: [id number] NABILA
[2018-06-08] MEDS ORDERED: amLODIPine TAB* 5 MG PO SCH (09:00)
== END 2018-06-07 13:57 | DRG 92 ==
LOC: ED 17:31 → MED 21:56
PROVIDERS: ADMIT Hospitalist; ATTEND Internal Medicine
PROC: 4A00X4Z Measurement of Central Nervous Electrical Activity, External Approach (ICD-10-PCS; principal; 2018-05-24)
DX: G92 Toxic encephalopathy (principal); F05 Delirium due to known physiological condition; I48.92 Unspecified atrial flutter; R44.3 Hallucinations, unspecified; J91.0 Malignant pleural effusion; E53.8 Deficiency of other specified B group vitamins; I48.91 Unspecified atrial fibrillation; F32.9 Major depressive disorder, single episode, unspecified; F41.9 Anxiety disorder, unspecified; D64.9 Anemia, unspecified; G89.29 Other chronic pain; M54.9 Dorsalgia, unspecified; M81.0 Age-related osteoporosis without current pathological fracture; T44.3X5A Adverse effect of other parasympatholytics [anticholinergics and antimuscarinics] and spasmolytics, initial encounter; M79.7 Fibromyalgia; R74.8 Abnormal levels of other serum enzymes; R59.0 Localized enlarged lymph nodes; H26.9 Unspecified cataract; R91.8 Other nonspecific abnormal finding of lung field; J43.9 Emphysema, unspecified; I12.9 Hypertensive chronic kidney disease with stage 1 through stage 4 chronic kidney disease, or unspecified chronic kidney disease; N18.3 Chronic kidney disease, stage 3 (moderate); R26.9 Unspecified abnormalities of gait and mobility; H53.47 Heteronymous bilateral field defects; R07.9 Chest pain, unspecified; Z86.73 Personal history of transient ischemic attack (TIA), and cerebral infarction without residual deficits; Z95.0 Presence of cardiac pacemaker; Z95.1 Presence of aortocoronary bypass graft; Z95.3 Presence of xenogenic heart valve; Z90.710 Acquired absence of both cervix and uterus; Z90.49 Acquired absence of other specified parts of digestive tract; Z87.891 Personal history of nicotine dependence; Y92.9 Unspecified place or not applicable; Z79.82 Long term (current) use of aspirin
CPT/HCPCS: 36415; 70450; 71046; 71260; 72125; 80048; 80053; 80162; 80307; 80329; 81003; 81015; 82140; 82306; 82375; 82607; 82746; 83090; 83735; 83880; 83921; 84100; 84443; 84484; 85025; 85379; 86140; 87086; 93005; 95816; 97530; 99284; A9270-GY; G0480; G8978-GP-CJ; G8979-GP-CI; G8987-GO-CK; G8987-GO-CL; G8988-GO-CJ; G8988-GO-CK; J3420; J3490; Q9967